=== PATIENT | female | born 1960 | race Caucasian/White ===

== ENCOUNTER → 2016-12-28 | Outpatient (CLI) | payer MEDICARE, OTHER ==
--- NOTE | 2017-01-02 08:11 | MM ---
Reason for exam: screening (asymptomatic). Last mammogram was performed 1 year and 4 months ago. History: Patient is postmenopausal. Family history of breast cancer in maternal aunt at age 57. Physical Findings: A clinical breast exam by your physician is recommended on an annual basis and results should be correlated with mammographic findings. MG 3D Screening Mammo W/Cad Bilateral CC and MLO view(s) were taken. Prior study comparison: August 25, 2015, right breast MG 3d work up w/cad RT. August 19, 2015, bilateral MG screening mammo w CAD. The breast tissue is extremely dense which could obscure a lesion on mammography. No significant changes when compared with prior studies. ASSESSMENT: Benign, BI-RAD 2 RECOMMENDATION: Routine screening mammogram of both breasts in 1 year.
== END | disposition home or self-care (01) ==
LOC: RADMAMWWP 14:29
PROVIDERS: ATTEND Family Medicine
DX: Z12.31 Encounter for screening mammogram for malignant neoplasm of breast (principal); Z80.3 Family history of malignant neoplasm of breast
CPT/HCPCS: 77063; G0202

== ENCOUNTER 2017-07-02 15:00 | Inpatient (IN) | payer MEDICARE, OTHER ==
[2017-07-02 16:22] LABS: Basophils # (A) 0.2 k/uL (0-0.2); Basophils % (A) 1 %; Eosinophils # (A) 0.4 k/uL (0-0.7); Eosinophils % (A) 2 %; HCT 39.4 % (34.0-46.0); HGB 12.8 gm/dL (11.4-16.0); Lymphocytes # (A) 2.2 k/uL (1.0-4.8); Lymphocytes % (A) 9 %; MCH 29.4 pg (25.0-35.0); MCHC 32.4 g/dL (31.0-37.0); Mean Platelet Volume 7.2; Monocytes # (A) 1.5 k/uL (0-1.0); Monocytes % (A) 6 %; Neutrophils # (A) 19.6 k/uL (1.3-7.7); Neutrophils % (A) 81 %; Platelet Count 425 k/uL (150-450); RBC 4.33 m/uL (3.80-5.40); RDW 14.2 % (11.5-15.5); WBC 24.2 k/uL (3.8-10.6)
[2017-07-02 16:26] LABS: Appearance,Urine Clear (Clear); Bacteria,Urine Few /hpf; Bilirubin,Urine Negative (Negative); Blood,Urine Negative (Negative); Color,Urine Yellow; Glucose,Urine (UA) Negative (Negative); Hyaline Casts,Urine 1 /lpf (0-2); Ketones,Urine Negative (Negative); Leukocyte Esterase,Urine Large (Negative); Mucus,Urine Rare /hpf; Nitrite,Urine Negative (Negative); PH, Urine 6.5 (5.0-8.0); Protein,Urine Negative (Negative); RBC,Urine 3 /hpf (0-5); Specific Gravity,Urine 1.008 (1.001-1.035); Squamous Epithelial Cell,Urine 7 /hpf (0-4); Urobilinogen,Urine <2.0 mg/dL (<2.0); WBC,Urine 8 /hpf (0-5)
--- NOTE | 2017-07-02 16:26 | XR ---
EXAMINATION TYPE: XR chest 2V DATE OF EXAM: 07/02/2017 COMPARISON: Prior chest x-ray 04/27/2014 HISTORY: Cough TECHNIQUE: Frontal and lateral views of the chest are obtained. FINDINGS: There is abnormal airspace disease present within the right lower lobe, possibly right mid dle lobe, no pleural effusion or pneumothorax seen. Prominent lung volumes suggest underlying COPD. There is mild spinal curvature. The cardiac silhouette size is stable, heart is small. The osseous structures are intact. IMPRESSION: Correlate for right lower lobe, possible right middle lobe pneumonia, follow-up to [facility]
[2017-07-02 16:32] LABS: Anion Gap 15 mmol/L; Blood Urea Nitrogen 16 mg/dL (7-17); Calcium 10.2 mg/dL (8.4-10.2); Carbon Dioxide 25 mmol/L (22-30); Chloride 104 mmol/L (98-107); Glucose 89 mg/dL (74-99); Potassium 3.9 mmol/L (3.5-5.1); Sodium 144 mmol/L (137-145)
[2017-07-02] MEDS ORDERED: SODIUM CHLORIDE 0.9% 500 ML IV STA (17:06)
[2017-07-02] MEDS ORDERED: RX INFO: IV CONTRAST WAS GIVEN 1 EACH MISC MISCELLANE PRN (17:06)
[2017-07-02] MEDS ORDERED: IPRATROPIUM-ALBUTEROL 3 ML NEB INHALATION STA (17:06)
--- NOTE | 2017-07-02 17:20 | ED ---
General Adult HPI - General Chief complaint: Upper Respiratory Infection Stated complaint: Cough Time Seen by Provider: 07/02/17 16:57 Source: patient, RN notes reviewed Mode of arrival: ambulatory Limitations: no limitations - History of Present Illness Initial comments: 56 yo female presents to the ER with cc of cough and shortness of breath. One week ago she was seen at urgent care and started on azithromycin and steroids for acute bronchitis. She states she continues to have this cough with sputum production. She did have fevers at the beginning of this. She states she feels as if she is getting worse so she thought that she should be seen. She denies any nausea or vomiting. She denies any ear or throat pain. She states she's having some left sided back pain and some chest discomfort with this as well. She states anytime she coughs it seems to get worse. Patient was concerned due to her continued symptoms and her continued cough after finishing the antibiotics so she thought that she should be seen.Patient denies any recent abdominal pain, nausea vomiting, numbness or tingling, dysuria or hematuria, constipation or diarrhea, headaches or visual changes, or any other current symptoms. - Related Data Home Medications Medication Instructions Recorded Confirmed Gabapentin 800 mg PO QID 05/01/14 07/02/17 Omeprazole 20 mg PO DAILY 05/01/14 07/02/17 Topiramate 100 mg PO BID 05/01/14 07/02/17 HYDROcodone/APAP 7.5-325MG [[place] 1 tab PO QID PRN 03/11/16 07/02/17 7.5-325] Baclofen [Lioresal] 20 mg PO HS 07/02/17 07/02/17 Sertraline [Zoloft] 50 mg PO DAILY 07/02/17 07/02/17 Spironolactone 50 mg PO DAILY 07/02/17 07/02/17 buPROPion XL [Wellbutrin Xl] 150 mg PO TID 07/02/17 07/02/17 Allergies Allergy/AdvReac Type Severity Reaction Status Date / Time metronidazole [From Flagyl] Allergy Itching, Verified 07/02/17 17:15 BURNING OF SKIN Review of Systems ROS Statement: Those systems with pertinent positive or pertinent negative responses have been documented in the HPI. ROS Other: All systems not noted in ROS Statement are negative. 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., chronic shoulder pain, back & neck pain History of Any Multi-Drug Resistant Organisms: None Reported Past Surgical History: Hernia Repair, Orthopedic Surgery, Tonsillectomy Additional Past Surgical History / Comment(s): arthroscopic shoulder, vocal cord scraping, dariana fundoplasty, neck surg., recent EGD, colonoscopy Past Anesthesia/Blood Transfusion Reactions: No Reported Reaction Past Psychological History: Anxiety, Depression Smoking Status: Current every day smoker Past Alcohol Use History: None Reported Past Drug Use History: None Reported - Past Family History Mother History Unknown: Yes Family Medical History: Cancer Father Family Medical History: Unable to Obtain General Exam - General Exam Comments Initial Comments: General: The patient is awake and alert, in no distress, and does not appear acutely ill. Eye: Pupils are equal, round and reactive to light, extra-ocular movements are intact; there is normal conjunctiva bilaterally. No signs of icterus. Ears, nose, mouth and throat: There are moist mucous membranes. Neck: The neck is supple, there is no tenderness. Cardiovascular: There is a regular rate and rhythm. No murmur, rub or gallop is appreciated. Respiratory: Lungs are clear to auscultation, respirations are non-labored, breath sounds are equal. No wheezes, stridor, rales, or rhonchi. Gastrointestinal: Soft, non-distended, non-tender abdomen without masses or organomegaly noted. There is no rebound or guarding present. No CVA tenderness. Bowel sounds are unremarkable. Back: There is no tenderness to palpation in the midline. There is no obvious deformity. No rashes noted. Musculoskeletal: Normal ROM, no tenderness, There is no pedal edema. There is no calf tenderness or swelling. Sensation intact. Pulses equal bilaterally 2+. Neurological: CN II-XII intact, There are no obvious motor or sensory deficits. Coordination appears grossly intact. Speech is normal. Skin: Skin is warm and dry and no rashes or lesions are noted. Psychiatric: Cooperative, appropriate mood & affect, normal judgment. Limitations: no limitations Course Vital Signs 07/02/17 07/02/17 07/02/17 15:19 17:22 17:30 Temperature 98.2 F Pulse Rate 110 H 92 95 Respiratory 20 20 Rate Blood Pressure 116/83 118/76 O2 Sat by Pulse 97 100 Oximetry 07/02/17 17:39 Temperature Pulse Rate 92 Respiratory Rate Blood Pressure O2 Sat by Pulse Oximetry Medical Decision Making - Medical Decision Making 56-year-old female presents for cough. At this time patient does appear to have a right lower and middle lobe pneumonia. This time patient has failed outpatient treatment with azithromycin that she finished a few days ago. This time we will admit the patient. We are pending her CAT scan results. Patient is in agreement this plan all questions have been answered. - Lab Data Result diagrams: 07/02/17 16:05 07/02/17 16:05 Lab Results 07/02/17 07/02/17 07/02/17 Range/Units 15:26 16:05 16:05 WBC 24.2 H (3.8-10.6) k/uL RBC 4.33 (3.80-5.40) m/uL Hgb 12.8 (11.4-16.0) gm/dL Hct 39.4 (34.0-46.0) % MCV 91.0 (80.0-100.0) fL MCH 29.4 (25.0-35.0) pg MCHC 32.4 (31.0-37.0) g/dL RDW 14.2 (11.5-15.5) % Plt Count 425 (150-450) k/uL Neutrophils % 81 % Lymphocytes % 9 % Monocytes % 6 % Eosinophils % 2 % Basophils % 1 % Neutrophils # 19.6 H (1.3-7.7) k/uL Lymphocytes # 2.2 (1.0-4.8) k/uL Monocytes # 1.5 H (0-1.0) k/uL Eosinophils # 0.4 (0-0.7) k/uL Basophils # 0.2 (0-0.2) k/uL D-Dimer (<0.60) mg/L FEU Sodium 144 (137-145) mmol/L Potassium 3.9 (3.5-5.1) mmol/L Chloride 104 (98-107) mmol/L Carbon Dioxide 25 (22-30) mmol/L Anion Gap 15 mmol/L BUN 16 (7-17) mg/dL Creatinine 0.70 (0.52-1.04) mg/dL Est GFR (MDRD) Af Amer >60 (>60 ml/min/1.73 sqM) Est GFR (MDRD) Non-Af >60 (>60 ml/min/1.73 sqM) Glucose 89 (74-99) mg/dL Calcium 10.2 (8.4-10.2) mg/dL Urine Color Urine Appearance (Clear) Urine pH (5.0-8.0) Ur Specific [place] (1.001-1.035) Urine Protein (Negative) Urine Glucose (UA) (Negative) Urine Ketones (Negative) Urine Blood (Negative) Urine Nitrite (Negative) Urine Bilirubin (Negative) Urine Urobilinogen (<2.0) mg/dL Ur Leukocyte Esterase (Negative) Urine RBC (0-5) /hpf Urine WBC (0-5) /hpf Ur Squamous Epith Cells (0-4) /hpf Urine Bacteria (None) /hpf Hyaline Casts (0-2) /lpf Urine Mucus (None) /hpf Influenza Type A RNA Not Detected (Not Detectd) Influenza Type B (PCR) Not Detected (Not Detectd) 07/02/17 07/02/17 Range/Units 16:05 16:05 WBC (3.8-10.6) k/uL RBC (3.80-5.40) m/uL Hgb (11.4-16.0) gm/dL Hct (34.0-46.0) % MCV (80.0-100.0) fL MCH (25.0-35.0) pg MCHC (31.0-37.0) g/dL RDW (11.5-15.5) % Plt Count (150-450) k/uL Neutrophils % % Lymphocytes % % Monocytes % % Eosinophils % % Basophils % % Neutrophils # (1.3-7.7) k/uL Lymphocytes # (1.0-4.8) k/uL Monocytes # (0-1.0) k/uL Eosinophils # (0-0.7) k/uL Basophils # (0-0.2) k/uL D-Dimer 0.87 H (<0.60) mg/L FEU Sodium (137-145) mmol/L Potassium (3.5-5.1) mmol/L Chloride (98-107) mmol/L Carbon Dioxide (22-30) mmol/L Anion Gap mmol/L BUN (7-17) mg/dL Creatinine (0.52-1.04) mg/dL Est GFR (MDRD) Af Amer (>60 ml/min/1.73 sqM) Est GFR (MDRD) Non-Af (>60 ml/min/1.73 sqM) Glucose (74-99) mg/dL Calcium (8.4-10.2) mg/dL Urine Color Yellow Urine Appearance Clear (Clear) Urine pH 6.5 (5.0-8.0) Ur Specific [place] 1.008 (1.001-1.035) Urine Protein Negative (Negative) Urine Glucose (UA) Negative (Negative) Urine Ketones Negative (Negative) Urine Blood Negative (Negative) Urine Nitrite Negative (Negative) Urine Bilirubin Negative (Negative) Urine Urobilinogen <2.0 (<2.0) mg/dL Ur Leukocyte Esterase Large H (Negative) Urine RBC 3 (0-5) /hpf Urine WBC 8 H (0-5) /hpf Ur Squamous Epith Cells 7 H (0-4) /hpf Urine Bacteria Few H (None) /hpf Hyaline Casts 1 (0-2) /lpf Urine Mucus Rare H (None) /hpf Influenza Type A RNA (Not Detectd) Influenza Type B (PCR) (Not Detectd) - Radiology Data Radiology results: report reviewed, image reviewed Disposition Clinical Impression: Failure of outpatient treatment, Right lower lobe pneumonia, Right middle lobe pneumonia Disposition: ADMITTED IP TO THIS [facility] Condition: Stable Referrals: Katja Jefferson DO [Primary Care Provider] - 1-2 days Decision Date: 07/02/17 Decision Time: 19:58
[2017-07-02] MEDS ORDERED: KETOROLAC 30 MG/ML 1 ML VIAL IVP STA (18:38)
[2017-07-02] MEDS ORDERED: LEVOFLOXACIN 750MG-D5W PMX 750 MG in DEXTROSE/WATER 1 150ML.BAG IVPB STA (19:59)
[2017-07-02] MEDS ORDERED: IPRATROPIUM-ALBUTEROL 3 ML NEB INHALATION PRN (19:59)
[2017-07-02] MEDS ORDERED: PNEUMONIA PROTOCOL UTILIZED 1 EACH MISC PO PRN (19:59)
--- NOTE | 2017-07-02 20:16 | CT ---
CT CHEST FOR PULMONARY EMBOLISM. EXAMINATION TYPE: CT angio chest DATE OF EXAM: 07/02/2017 INDICATION: Patient complains of unproductive cough CT DLP: 301 mGycm, Automated exposure control for dose reduction was used. CONTRAST: Patient injected with 100 mL of Omnipaque 350. COMPARISON: NONE TECHNIQUE: CT of the chest is performed on a spiral scan at 2 mm thick sections. Study is performed with intravenous contrast timed for evaluation for pulmonary embolism. This will limit additional po rtions of the evaluation. 3-D MIP images reconstructed by the technologist are reviewed on the compu ter in the coronal and sagittal planes. FINDINGS: No persistent filling defects are evident to suggest an acute pulmonary embolism. No mediastinal or hilar adenopathy enlarged by CT criteria is evident. The ascending aorta diameter at the level of the main pulmonary artery is 2.9 cm. The main pulmonary artery diameter at the bifur cation is 2.4 cm. Patchy infiltrates within the posterior lung bases bilaterally. This may be greater along the lateral right lung. There is a consolidation within the lingula. Some mild soft tissue density may surround the infrahilar region on the right. Limited CT section through the upper abdomen are unremarkable. IMPRESSIONS: 1. No acute pulmonary embolism. 2. Nonspecific infiltrate present at the bilateral lung bases with some possible soft tissue density in the right infrahilar region. Follow-up to clearing is recommended. Differential diagnosis could in clude pneumonia.
[2017-07-02] MEDS: SODIUM CHLORIDE 0.9% 1,000 ML IV SCH (20:21)
[2017-07-02 22:14] VITALS: BMI 16.9
[2017-07-02] MEDS: BACLOFEN 10 MG TAB PO SCH (22:30)
[2017-07-02] MEDS: buPROPion XL 150 MG TAB.ER.24H PO SCH (22:30)
[2017-07-02] MEDS: GABAPENTIN 400 MG CAP PO SCH (22:30)
[2017-07-02] MEDS: TOPIRAMATE 100 MG TAB PO SCH (22:31)
[2017-07-02] MEDS: HYDROcodone/APAP 7.5-325MG 1 EACH TAB PO PRN (22:32)
[2017-07-03] MEDS ORDERED: MORPHINE SULFATE 4 MG/ML SYRINGE IVP PRN ×2 (04:04→04:14)
[2017-07-03] MEDS ORDERED: guaiFENesin-DM 100-10MG/5ML 10 ML CUP PO PRN (04:04)
[2017-07-03] MEDS: buPROPion XL 150 MG TAB.ER.24H PO SCH ×3 (08:13→21:37)
[2017-07-03] MEDS: PANTOPRAZOLE 40 MG TABLET PO SCH (08:13)
[2017-07-03] MEDS: SERTRALINE 50 MG TAB PO SCH (08:13)
[2017-07-03] MEDS: SPIRONOLACTONE 25 MG TAB PO SCH (08:13)
[2017-07-03] MEDS: GABAPENTIN 400 MG CAP PO SCH ×4 (08:13→21:37)
[2017-07-03] MEDS: HYDROcodone/APAP 7.5-325MG 1 EACH TAB PO PRN ×3 (08:13→23:36)
[2017-07-03] MEDS: TOPIRAMATE 100 MG TAB PO SCH ×2 (08:14→21:37)
[2017-07-03] MEDS: LEVOFLOXACIN 750 MG TAB PO SCH (08:14)
[2017-07-03] MEDS: SODIUM CHLORIDE 0.9% 1,000 ML IV SCH ×2 (08:15→10:46)
[2017-07-03] MEDS ORDERED: IPRATROPIUM-ALBUTEROL 3 ML NEB INHALATION PRN (08:42)
[2017-07-03] MEDS: IPRATROPIUM-ALBUTEROL 3 ML NEB INHALATION SCH ×3 (11:52→19:03)
--- NOTE | 2017-07-03 12:10 | P.CNPUL ---
History of Present Illness Consult date: 07/03/17 Reason for consult: pneumonia History of present illness: A pleasant 66-year-old female patient is presenting to the hospital because of worsening shortness of breath. The patient is a chronic smoker. The patient came into the hospital for increased cough, chest congestion, chest tightness that was progressively getting worse over the past week or so. The patient was seen in urgent care and she was diagnosed having a rest or checked infection/ bronchitis and the patient was given a course of Z-Fred and steroids. Nevertheless she failed to improve. She did have some fever earlier approximately a week ago and currently she is afebrile. No nausea. No vomiting. No abdominal pain. She has diminished appetite. She is having pain across her left posterior back area which is somewhat pleuritic in nature. No hemoptysis for now. She came into the hospital and she was slightly tachycardic. She was not tachypneic. Her temperature was 98.2. A chest x-ray was done that was nonspecific and subsequently a CAT scan of the chest was done that showed lower lobe nodular bilateral pulmonary infiltrates along with some consolidation over the lingular segment along the left cardiac border. This is consistent with bilateral pneumonia. No reported aspiration per no sick contacts. Influenza screen was negative. No travel history. The patient rides the bus and she could have been exposed to other people with respiratory difficulties and problems. She is currently on Levaquin. She is also started on DuoNeb nebulized treatment [id number]. Review of Systems Constitutional: Reports fatigue, Reports weakness Eyes: denies blurred vision, denies bulging eye, denies decreased vision Ears: deny: decreased hearing, ear discharge, earache, tinnitus Ears, nose, mouth and throat: Denies headache, Denies sore throat Cardiovascular: Reports dyspnea on exertion Respiratory: Reports cough, Reports dyspnea, Reports wheezing Gastrointestinal: Reports loss of appetite Genitourinary: Denies dysuria, Denies hematuria Musculoskeletal: Denies myalgias Musculoskeletal: absent: ankle pain, ankle stiffness, ankle swelling Integumentary: Denies pruritus, Denies rash Neurological: Denies numbness, Denies weakness Psychiatric: Denies anxiety, Denies depression Endocrine: Denies fatigue, Denies weight change Hematologic/Lymphatic: Reports as per HPI Allergic/Immunologic: Reports as per HPI Past Medical History Past Medical History: GERD/Reflux, Hypertension Additional Past Medical History / Comment(s): COPD, hypertension, leukoplakia of the vocal cords, chronic shoulder back and neck pain, acid reflux, depression , smoker History of Any Multi-Drug Resistant Organisms: None Reported Past Surgical History: Hernia Repair, Orthopedic Surgery, Tonsillectomy Additional Past Surgical History / Comment(s): arthroscopic shoulder, vocal cord scraping, dariana fundoplasty, neck surg., recent EGD, colonoscopy, cholesycystectomy Past Anesthesia/Blood Transfusion Reactions: No Reported Reaction Past Psychological History: Anxiety, Depression Additional Psychological History / Comment(s): hx suicidal ideaation Smoking Status: Current every day smoker Past Alcohol Use History: None Reported Additional Past Alcohol Use History / Comment(s): quit smoking 2014, smoked < ppd since age of 20. started smoking again recently, says 1 pack will last her 3days. Past Drug Use History: None Reported - Past Family History Mother History Unknown: Yes Family Medical History: Cancer Father Family Medical History: Unable to Obtain Medications and Allergies Home Medications Medication Instructions Recorded Confirmed Type Gabapentin 800 mg PO QID 05/01/14 07/02/17 History Omeprazole 20 mg PO DAILY 05/01/14 07/02/17 History Topiramate 100 mg PO BID 05/01/14 07/02/17 History HYDROcodone/APAP 7.5-325MG [[place] 1 tab PO QID PRN 03/11/16 07/02/17 History 7.5-325] Baclofen [Lioresal] 20 mg PO HS 07/02/17 07/02/17 History Sertraline [Zoloft] 50 mg PO DAILY 07/02/17 07/02/17 History Spironolactone 50 mg PO DAILY 07/02/17 07/02/17 History buPROPion XL [Wellbutrin Xl] 150 mg PO TID 07/02/17 07/02/17 History Allergies Allergy/AdvReac Type Severity Reaction Status Date / Time metronidazole [From Flagyl] Allergy Itching, Verified 07/02/17 17:15 BURNING OF SKIN Physical Exam Vitals: Vital Signs Temp Pulse Pulse Resp BP BP Pulse Ox 07/03/17 11:52 84 07/03/17 07:00 98.3 F 82 18 101/57 97 07/02/17 21:54 97.7 F 104 H 18 105/69 99 07/02/17 21:42 98.4 F 92 18 113/84 97 07/02/17 20:16 98.6 F 94 18 106/90 96 07/02/17 17:39 92 07/02/17 17:30 95 07/02/17 17:22 92 20 118/76 100 07/02/17 15:19 98.2 F 110 H 20 116/83 97 Intake and Output 07/02/17 07/03/17 07/03/17 22:59 06:59 14:59 Other: # Voids 1 Weight 46.266 kg 46.266 kg Patient Weight 07/04/17 06:59 Weight 46.266 kg This is a thin and frail female patient who looks older than her stated age. She is not using accessory muscles of breathing. She is laying down comfortably in bed. No altered mentation and she has been alert and awake 3 and there is no focal neurological deficit or any cranial nerve deficit at this point.Head exam was generally normal. There was no scleral icterus or corneal arcus. Mucous membranes were moist.Neck was supple and without jugular venous distension, thyromegaly, or carotid bruits. Carotids were easily palpable bilaterally. There was no adenopathy. Lung sounds are diminished in lung bases along with some scattered rhonchi and scattered expiratory wheezes heard throughout the lung fuentes bilaterally.Cardiac exam revealed the PMI to be normally situated and sized. The rhythm was regular and no extrasystoles were noted during several minutes of auscultation. The first and second heart sounds were normal and physiologic splitting of the second heart sound was noted. There were no murmurs, rubs, clicks, or gallops.Abdominal exam revealed normal bowel sounds. The abdomen was soft, non-tender, and without masses, organomegaly , or appreciable enlargement of the abdominal aorta.Examination of the extremities revealed easily palpable radial, femoral and pedal pulses. There was no cyanosis, clubbing or edema.Examination of the skin revealed no evidence of significant rashes, suspicious appearing nevi or other concerning lesions. Results - Laboratory Findings CBC and BMP: 07/02/17 16:05 07/02/17 16:05 PT/INR, D-dimer D-Dimer 0.87 mg/L FEU (<0.60) H 07/02/17 16:05 Abnormal lab findings: Abnormal Labs 07/02/17 07/02/17 07/02/17 16:05 16:05 16:05 WBC 24.2 H Neutrophils # 19.6 H Monocytes # 1.5 H D-Dimer 0.87 H Ur Leukocyte Esterase Large H Urine WBC 8 H Ur Squamous Epith Cells 7 H Urine Bacteria Few H Urine Mucus Rare H - Diagnostic Findings Chest x-ray: image reviewed CT scan - chest: image reviewed Assessment and Plan Plan: Assessment 1 bilateral pneumonia. The pneumonia is affecting mainly the lower lobes and the patient has no other better pulmonary infiltrates in addition to a consolidation in the lingular segment of the left upper lobe. As such the patient has multilobar pneumonia. In addition the patient has leukocytosis in addition to increased cough and wheezing which is typical of an acute COPD exacerbation 2 COPD with acute exacerbation secondary to bilateral pneumonia 3 leukocytosis secondary to above 4 shortness of breath secondary to above 5 anxiety/depression 6 acid reflux 7 chronic pain 8 hypertension Plan Based on the severity of pneumonia, we'll broaden the antibiotic coverage. We' ll obtain sputum Gram stain and culture. We'll obtain blood culture. We'll put the patient a combination of Zosyn and Levaquin. The COPD exacerbation will be treated with DuoNeb neb treatments around the clock and IV Solu Medrol. Will monitor the x-ray findings. Smoking cessation counseling was done. Ninfa for cough. Continue her outpatient medication including her painkillers. We'll continue to follow.
[2017-07-03] MEDS: PIPERACILLIN-TAZOBACTAM 3.375 GM in DEXTROSE/WATER 1 50ML.BAG IVPB SCH ×2 (12:17→21:35)
[2017-07-03] MEDS: methylPREDNISolone SOD SUCCI 125 MG/2 ML VIAL IV SCH ×3 (12:17→23:34)
--- NOTE | 2017-07-03 13:54 | XR ---
EXAMINATION TYPE: XR chest 2V DATE OF EXAM: 07/03/2017 COMPARISON: 07/02/2017 HISTORY: 56 year-old female history of pneumonia TECHNIQUE: Frontal and lateral views FINDINGS: The cardiomediastinal silhouette, aorta, and pulmonary vasculature are within normal limits. Hyperinf lation. Mild peribronchial cuffing. Findings compatible with COPD. On the lateral view, there is new patchy posterior basilar density. IMPRESSION: COPD with new posterior basilar atelectasis versus developing pneumonia.
--- NOTE | 2017-07-03 14:45 | P.HPIM ---
History of Present Illness H&P Date: 07/03/17 Chief Complaint: Cough This is a 56-year-old female, patient of Dr. Jefferson. 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 Patient presents to the emergency room with complaints of cough and shortness of breath that did not improve with outpatient treatment. Patient had been at the clinic and was treated for a bronchitis at that time was given a course of Z-Fred and steroids. Patient reports she's having symptoms for about 2 weeks did not approve with treatment. Patient came into the emergency room for further evaluation and treatment. She had a white count 24.2 elevated d-dimer of 0.87 influenza screen was negative. She underwent a CTA of the chest which was negative for PE. Did reveal a nonspecific infiltrate present at the bilateral lung bases with some possible soft tissue density in the right infrahilar region. Pulmonary service consulted. Patient started on IV antibiotics currently in the form of Levaquin and IV Zosyn. Also started on IV Solu-Medrol and bronchodilators for COPD exacerbation. Review of Systems Please refer to HPI otherwise unremarkable Past Medical History Past Medical History: GERD/Reflux, Hypertension Additional Past Medical History / Comment(s): COPD, hypertension, leukoplakia of the vocal cords, chronic shoulder back and neck pain, acid reflux, depression , smoker History of Any Multi-Drug Resistant Organisms: None Reported Past Surgical History: Hernia Repair, Orthopedic Surgery, Tonsillectomy Additional Past Surgical History / Comment(s): arthroscopic shoulder, vocal cord scraping, dariana fundoplasty, neck surg., recent EGD, colonoscopy, cholesycystectomy Past Anesthesia/Blood Transfusion Reactions: No Reported Reaction Past Psychological History: Anxiety, Depression Additional Psychological History / Comment(s): hx suicidal ideaation Smoking Status: Current every day smoker Past Alcohol Use History: None Reported Additional Past Alcohol Use History / Comment(s): quit smoking 2014, smoked < ppd since age of 20. started smoking again recently, says 1 pack will last her 3days. Past Drug Use History: None Reported - Past Family History Mother History Unknown: Yes Family Medical History: Cancer Father Family Medical History: Unable to Obtain Medications and Allergies Home Medications Medication Instructions Recorded Confirmed Type Gabapentin 800 mg PO QID 05/01/14 07/02/17 History Omeprazole 20 mg PO DAILY 05/01/14 07/02/17 History Topiramate 100 mg PO BID 05/01/14 07/02/17 History HYDROcodone/APAP 7.5-325MG [[place] 1 tab PO QID PRN 03/11/16 07/02/17 History 7.5-325] Baclofen [Lioresal] 20 mg PO HS 07/02/17 07/02/17 History Sertraline [Zoloft] 50 mg PO DAILY 07/02/17 07/02/17 History Spironolactone 50 mg PO DAILY 07/02/17 07/02/17 History buPROPion XL [Wellbutrin Xl] 150 mg PO TID 07/02/17 07/02/17 History Allergies Allergy/AdvReac Type Severity Reaction Status Date / Time metronidazole [From Flagyl] Allergy Itching, Verified 07/02/17 17:15 BURNING OF SKIN Physical Exam Vitals: Vital Signs Temp Pulse Pulse Resp BP BP Pulse Ox 07/03/17 12:06 88 07/03/17 11:52 84 07/03/17 07:00 98.3 F 82 18 101/57 97 07/02/17 21:54 97.7 F 104 H 18 105/69 99 07/02/17 21:42 98.4 F 92 18 113/84 97 07/02/17 20:16 98.6 F 94 18 106/90 96 07/02/17 17:39 92 07/02/17 17:30 95 07/02/17 17:22 92 20 118/76 100 07/02/17 15:19 98.2 F 110 H 20 116/83 97 Intake and Output 07/02/17 07/03/17 07/03/17 22:59 06:59 14:59 Intake Total 850 Balance 850 Intake: Intake, IV Titration 850 Amount Piperacillin-Tazobactam 3 50 .375 gm In Dextrose/Water 1 50ml.bag @ 12.5 mls/hr IVPB Q8H [facility] Rx#: [id number] Sodium Chloride 0.9% 1, 800 000 ml @ 100 mls/hr IV . Q10H [facility] Rx#:[id number] Other: # Voids 1 2 Weight 46.266 kg 46.266 kg Patient Weight 07/04/17 06:59 Weight 46.266 kg Head normocephalic Neck supple Lungs wheezing bilaterally with coarse breath sounds Heart regular rate and rhythm S1-S2, no rub or gallop Abdomen is soft nontender nondistended positive bowel sounds no hepatosplenomegaly Extremities no edema Neuro alert and orientated to 3 Results CBC & Chem 7: 07/02/17 16:05 07/02/17 16:05 Labs: Abnormal Lab Results - Last 24 Hours (Table) 07/02/17 07/02/17 07/02/17 Range/Units 16:05 16:05 16:05 WBC 24.2 H (3.8-10.6) k/uL Neutrophils # 19.6 H (1.3-7.7) k/uL Monocytes # 1.5 H (0-1.0) k/uL D-Dimer 0.87 H (<0.60) mg/L FEU Ur Leukocyte Esterase Large H (Negative) Urine WBC 8 H (0-5) /hpf Ur Squamous Epith Cells 7 H (0-4) /hpf Urine Bacteria Few H (None) /hpf Urine Mucus Rare H (None) /hpf Thrombosis Risk Factor Assmnt - Choose All That Apply Any of the Below Risk Factors Present?: Yes Each Factor Represents 1 point: Age 41-60 years Other Risk Factors: No Other congenital or acquired thrombophilia - If yes, enter type in comment: No Thrombosis Risk Factor Assessment Total Risk Factor Score: 1 Thrombosis Risk Factor Assessment Level: Low Risk Assessment and Plan Assessment: 1. Bilateral pneumonia: Check sputum culture. Patient started on Levaquin and pulmonary service added IV Zosyn. 2. Acute COPD exacerbation secondary to the bilateral pneumonia. Pulmonary service following 3. Leukocytosis present on admission likely related to patient's pneumonia and she had recently been on prednisone outpatient 4. Essential hypertension 5. Nicotine dependence: Discussed smoking cessation for greater than 3 minutes. Add nicotine patch 6. Elevated d-dimer on admission. CTA negative for PE 7. History of Leukoplakia of the vocal cords and tonsils treated by Dr. Dcikens GI prophylaxis Protonix and DVT prophylaxis Lovenox Time with Patient: Greater than 30 (Greater than 50% of the total time spent in counseling and coordination of care.I performed an examination of the patient and discussed their management with the physician Belly Packer. I have reviewed the Physician Belly Packer's notes and agree with the documented findings and plan of care)
[2017-07-03] MEDS: ENOXAPARIN 40 MG/0.4 ML SYRINGE SQ SCH (16:19)
[2017-07-03] MEDS: guaiFENesin 600 MG TABLET.ER PO SCH ×2 (16:19→21:36)
[2017-07-03] MEDS: NICOTINE 7MG/24HR PATCH TRANSDERM SCH (16:19)
[2017-07-03 17:17] LABS: Glucose,Whole Blood 148 mg/dL (75-99)
[2017-07-03] MEDS: INSULIN ASPART 100 UNIT/ML 1 ML 10 ML VIAL SQ SCH ×2 (17:37→21:53)
[2017-07-03 20:20] LABS: Glucose,Whole Blood 142 mg/dL (75-99)
[2017-07-03] MEDS: CALCIUM POLYCARBOPHIL 625 MG TAB PO SCH (21:36)
[2017-07-03] MEDS: BACLOFEN 10 MG TAB PO SCH (21:36)
[2017-07-03] MEDS ORDERED: MELATONIN 5 MG TABLET PO PRN (23:08)
[2017-07-03] MEDS: traZODone HCL 50 MG TAB PO PRN (23:34)
[2017-07-04] MEDS: PIPERACILLIN-TAZOBACTAM 3.375 GM in DEXTROSE/WATER 1 50ML.BAG IVPB SCH ×3 (04:47→21:14)
[2017-07-04] MEDS: SODIUM CHLORIDE 0.9% 1,000 ML IV SCH ×3 (04:47→17:07)
[2017-07-04] MEDS: methylPREDNISolone SOD SUCCI 125 MG/2 ML VIAL IV SCH ×3 (05:57→17:11)
[2017-07-04] MEDS: IPRATROPIUM-ALBUTEROL 3 ML NEB INHALATION SCH ×4 (07:37→20:31)
[2017-07-04 07:38] LABS: Glucose,Whole Blood 166 mg/dL (75-99)
[2017-07-04 08:58] LABS: Basophils # (A) 0.1 k/uL (0-0.2); Basophils % (A) 0 %; Eosinophils % (A) 0 %; HCT 35.4 % (34.0-46.0); HGB 11.1 gm/dL (11.4-16.0); Hypochromasia Slight; Lymphocytes # (A) 1.2 k/uL (1.0-4.8); Lymphocytes % (A) 7 %; MCH 29.6 pg (25.0-35.0); MCHC 31.4 g/dL (31.0-37.0); Mean Platelet Volume 7.3; Monocytes # (A) 0.5 k/uL (0-1.0); Monocytes % (A) 3 %; Neutrophils # (A) 16.2 k/uL (1.3-7.7); Neutrophils % (A) 90 %; Platelet Count 391 k/uL (150-450); RBC 3.77 m/uL (3.80-5.40); RDW 14.2 % (11.5-15.5)
[2017-07-04] MEDS: INSULIN ASPART 100 UNIT/ML 1 ML 10 ML VIAL SQ SCH ×4 (09:01→21:15)
[2017-07-04] MEDS: ENOXAPARIN 40 MG/0.4 ML SYRINGE SQ SCH (09:02)
[2017-07-04] MEDS: SERTRALINE 50 MG TAB PO SCH (09:02)
[2017-07-04] MEDS: NICOTINE 7MG/24HR PATCH TRANSDERM SCH (09:02)
[2017-07-04] MEDS: PANTOPRAZOLE 40 MG TABLET PO SCH (09:02)
[2017-07-04] MEDS: LEVOFLOXACIN 750 MG TAB PO SCH (09:02)
[2017-07-04] MEDS: guaiFENesin 600 MG TABLET.ER PO SCH ×2 (09:02→21:14)
[2017-07-04] MEDS: GABAPENTIN 400 MG CAP PO SCH ×4 (09:02→21:14)
[2017-07-04] MEDS: SPIRONOLACTONE 25 MG TAB PO SCH (09:02)
[2017-07-04] MEDS: buPROPion XL 150 MG TAB.ER.24H PO SCH ×3 (09:02→21:14)
[2017-07-04] MEDS: TOPIRAMATE 100 MG TAB PO SCH ×2 (09:02→21:15)
[2017-07-04 09:17] LABS: ALT 33 U/L (9-52); AST 24 U/L (14-36); Albumin 3.4 g/dL (3.5-5.0); Alkaline Phosphatase 94 U/L (38-126); Anion Gap 14 mmol/L; Blood Urea Nitrogen 12 mg/dL (7-17); Calcium 9.7 mg/dL (8.4-10.2); Carbon Dioxide 21 mmol/L (22-30); Chloride 111 mmol/L (98-107); Glucose 181 mg/dL (74-99); Potassium 3.6 mmol/L (3.5-5.1); Sodium 146 mmol/L (137-145); Total Bilirubin 0.3 mg/dL (0.2-1.3); Total Protein 6.4 g/dL (6.3-8.2)
[2017-07-04] MEDS: HYDROcodone/APAP 7.5-325MG 1 EACH TAB PO PRN ×2 (09:34→17:11)
--- NOTE | 2017-07-04 11:01 | P.PN ---
Subjective Progress Note Date: 07/04/17 This is a 56-year-old female, patient of Dr. Jefferson. 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 Patient presents to the emergency room with complaints of cough and shortness of breath that did not improve with outpatient treatment. Patient had been at the clinic and was treated for a bronchitis at that time was given a course of Z-Fred and steroids. Patient reports she's having symptoms for about 2 weeks did not approve with treatment. Patient came into the emergency room for further evaluation and treatment. She had a white count 24.2 elevated d-dimer of 0.87 influenza screen was negative. She underwent a CTA of the chest which was negative for PE. Did reveal a nonspecific infiltrate present at the bilateral lung bases with some possible soft tissue density in the right infrahilar region. Pulmonary service consulted. Patient started on IV antibiotics currently in the form of Levaquin and IV Zosyn. Also started on IV Solu-Medrol and bronchodilators for COPD exacerbation. On 07/04/2017 patient is alert and oriented 3 still complaining of cough and complaining of shortness of breath with activity she is complaining of stiffness in her lower extremities after laying in bed for several hours otherwise she denies any complaints there is no fever or chills no headache no dizziness no chest pain no nausea or vomiting no abdominal pain no diarrhea and no urinary symptoms. Objective - Vital Signs Vital signs: Vital Signs Temp 97.5 F L 07/04/17 07:00 Pulse 80 07/04/17 07:53 Resp 16 07/04/17 07:00 BP 114/76 07/04/17 07:00 Pulse Ox 98 07/04/17 07:00 Intake & Output 07/03/17 07/04/17 07/04/17 18:59 06:59 18:59 Intake Total 850 900 Balance 850 900 Weight 46.266 kg Intake: IV 900 Sodium Chloride 0.9% 1, 900 000 ml @ 100 mls/hr IV . Q10H [facility] Rx#:[id number] Intake, IV Titration 850 Amount Piperacillin-Tazobactam 3 50 .375 gm In Dextrose/Water 1 50ml.bag @ 12.5 mls/hr IVPB Q8H [facility] Rx#: [id number] Sodium Chloride 0.9% 1, 800 000 ml @ 100 mls/hr IV . Q10H [facility] Rx#:[id number] Other: Voiding Method Toilet # Voids 2 1 - Exam In general patient is alert and oriented 3 in no apparent distress HEENT head normocephalic and atraumatic Neck is supple no JVD no goiter no lymphadenopathy Chest exam reveals a crackles in both lung bases no wheezing Cardiac exam reveals regular heart sounds no gallops no murmurs Abdomen is soft nontender no organomegaly Extremity exam reveals no edema no cyanosis or clubbing - Labs CBC & Chem 7: 07/04/17 08:34 07/04/17 08:34 Labs: Abnormal Lab Results - Last 24 Hours (Table) 07/03/17 07/03/17 07/04/17 Range/Units 17:14 19:50 07:37 WBC (3.8-10.6) k/uL RBC (3.80-5.40) m/uL Hgb (11.4-16.0) gm/dL Neutrophils # (1.3-7.7) k/uL Sodium (137-145) mmol/L Chloride (98-107) mmol/L Carbon Dioxide (22-30) mmol/L Glucose (74-99) mg/dL POC Glucose (mg/dL) 148 H 142 H 166 H (75-99) mg/dL Albumin (3.5-5.0) g/dL 07/04/17 07/04/17 Range/Units 08:34 08:34 WBC 18.0 H (3.8-10.6) k/uL RBC 3.77 L (3.80-5.40) m/uL Hgb 11.1 L (11.4-16.0) gm/dL Neutrophils # 16.2 H (1.3-7.7) k/uL Sodium 146 H (137-145) mmol/L Chloride 111 H (98-107) mmol/L Carbon Dioxide 21 L (22-30) mmol/L Glucose 181 H (74-99) mg/dL POC Glucose (mg/dL) (75-99) mg/dL Albumin 3.4 L (3.5-5.0) g/dL Microbiology - Last 24 Hours (Table) 07/02/17 20:20 Blood Culture - Preliminary Blood No Growth after 24 hours Assessment and Plan Plan: 1. Bilateral pneumonia: Check sputum culture. Patient started on Levaquin and pulmonary service added IV Zosyn. 2. Acute COPD exacerbation secondary to the bilateral pneumonia. Pulmonary service following 3. Leukocytosis present on admission likely related to patient's pneumonia and she had recently been on prednisone outpatient 4. Essential hypertension 5. Nicotine dependence: Discussed smoking cessation for greater than 3 minutes. Add nicotine patch 6. Elevated d-dimer on admission. CTA negative for PE 7. History of Leukoplakia of the vocal cords and tonsils treated by Dr. Dickens
[2017-07-04 11:11] LABS: Glucose,Whole Blood 113 mg/dL (75-99)
--- NOTE | 2017-07-04 16:04 | P.PN ---
Subjective Progress Note Date: 07/04/17 Principal diagnosis: Acute bilateral pneumonia, COPD exacerbation A pleasant 66-year-old female patient is presenting to the hospital because of worsening shortness of breath. The patient is a chronic smoker. The patient came into the hospital for increased cough, chest congestion, chest tightness that was progressively getting worse over the past week or so. The patient was seen in urgent care and she was diagnosed having a rest or checked infection/ bronchitis and the patient was given a course of Z-Rfed and steroids. Nevertheless she failed to improve. She did have some fever earlier approximately a week ago and currently she is afebrile. No nausea. No vomiting. No abdominal pain. She has diminished appetite. She is having pain across her left posterior back area which is somewhat pleuritic in nature. No hemoptysis for now. She came into the hospital and she was slightly tachycardic. She was not tachypneic. Her temperature was 98.2. A chest x-ray was done that was nonspecific and subsequently a CAT scan of the chest was done that showed lower lobe nodular bilateral pulmonary infiltrates along with some consolidation over the lingular segment along the left cardiac border. This is consistent with bilateral pneumonia. No reported aspiration per no sick contacts. Influenza screen was negative. No travel history. The patient rides the bus and she could have been exposed to other people with respiratory difficulties and problems. She is currently on Levaquin. She is also started on DuoNeb nebulized treatment [id number]. On 07/04/2017 patient seen in follow-up. Resting in bed, denies any acute distress. Still becomes dyspneic, lightheaded, tachycardic with ambulation. Reports her breathing is slightly better today. Lung sounds good air entry bilaterally, few scattered wheezes, bronchospastic cough improving. Not able to bring up much sputum, but did produce a sputum specimen for culture. Blood culture is negative at the 24-hour rima. Afebrile, vital signs are stable. Patient is on room air with O2 sat at 98%. Today's blood work shows improvement in the leukocytosis, WBC is down to 18.0 from 24.2, serum sodium is slightly elevated at 146, normal renal profile. Patient's influenza screen was negative. We'll continue with current plan of treatment. Objective - Vital Signs Vital signs: Vital Signs Temp 97.5 F L 07/04/17 07:00 Pulse 100 07/04/17 12:23 Resp 16 07/04/17 07:00 BP 114/76 07/04/17 07:00 Pulse Ox 98 07/04/17 07:00 Intake & Output 07/03/17 07/04/17 07/04/17 18:59 06:59 18:59 Intake Total 850 900 Balance 850 900 Weight 46.266 kg Intake: IV 900 Sodium Chloride 0.9% 1, 900 000 ml @ 100 mls/hr IV . Q10H [facility] Rx#:[id number] Intake, IV Titration 850 Amount Piperacillin-Tazobactam 3 50 .375 gm In Dextrose/Water 1 50ml.bag @ 12.5 mls/hr IVPB Q8H [facility] Rx#: [id number] Sodium Chloride 0.9% 1, 800 000 ml @ 100 mls/hr IV . Q10H [facility] Rx#:[id number] Other: Voiding Method Toilet Toilet Diaper # Voids 2 1 - Exam GENERAL EXAM: Alert, pleasant, thin 56-year-old white female, resting in bed, comfortable in no apparent distress. HEAD: Normocephalic/atraumatic. EYES: Normal reaction of pupils, equal size. Conjunctiva pink, sclera white. NOSE: Clear with pink turbinates. THROAT: No erythema or exudates. NECK: No masses, no JVD, no thyroid enlargement, no adenopathy. CHEST: No chest wall deformity. Symmetrical expansion. LUNGS: Equal air entry with no crackles, a few end expiratory wheezing, bronchospastic cough which has noted to be improving from previous exams. CVS: Regular rate and rhythm, normal S1 and S2, no gallops, no murmurs, no rubs ABDOMEN: Soft, nontender. No hepatosplenomegaly, normal bowel sounds, no guarding or rigidity. EXTREMITIES: No clubbing, no edema, no cyanosis, 2+ pulses and upper and lower extremities. MUSCULOSKELETAL: Muscle strength and tone normal. SPINE: No scoliosis or deformity SKIN: No rashes CENTRAL NERVOUS SYSTEM: Alert and oriented -3. No focal deficits, tone is normal in all 4 extremities. PSYCHIATRIC: Alert and oriented -3. Appropriate affect. Intact judgment and insight. - Labs CBC & Chem 7: 07/04/17 08:34 03/07/18 08:34 Labs: Abnormal Lab Results - Last 24 Hours (Table) 07/03/17 07/03/17 07/04/17 Range/Units 17:14 19:50 07:37 WBC (3.8-10.6) k/uL RBC (3.80-5.40) m/uL Hgb (11.4-16.0) gm/dL Neutrophils # (1.3-7.7) k/uL Sodium (137-145) mmol/L Chloride (98-107) mmol/L Carbon Dioxide (22-30) mmol/L Glucose (74-99) mg/dL POC Glucose (mg/dL) 148 H 142 H 166 H (75-99) mg/dL Albumin (3.5-5.0) g/dL 07/04/17 07/04/17 07/04/17 Range/Units 08:34 08:34 11:10 WBC 18.0 H (3.8-10.6) k/uL RBC 3.77 L (3.80-5.40) m/uL Hgb 11.1 L (11.4-16.0) gm/dL Neutrophils # 16.2 H (1.3-7.7) k/uL Sodium 146 H (137-145) mmol/L Chloride 111 H (98-107) mmol/L Carbon Dioxide 21 L (22-30) mmol/L Glucose 181 H (74-99) mg/dL POC Glucose (mg/dL) 113 H (75-99) mg/dL Albumin 3.4 L (3.5-5.0) g/dL Microbiology - Last 24 Hours (Table) 07/02/17 20:20 Blood Culture - Preliminary Blood No Growth after 24 hours Assessment and Plan Plan: Assessment: 1 bilateral pneumonia. The pneumonia is affecting mainly the lower lobes and the patient has no other better pulmonary infiltrates in addition to a consolidation in the lingular segment of the left upper lobe. As such the patient has multilobar pneumonia. In addition the patient has leukocytosis in addition to increased cough and wheezing which is typical of an acute COPD exacerbation 2 COPD with acute exacerbation secondary to bilateral pneumonia 3 leukocytosis secondary to above, improving 4 shortness of breath secondary to above 5 anxiety/depression 6 acid reflux 7 chronic pain 8 hypertension Plan Continue current plan of care, continue current antibiotic coverage, sputum cultures pending. We will patient is improving, but remains dyspneic, and tachycardic with activity. Lung sounds are improving, and so is her cough and chest congestion. Vitals as remains stable, continue with nebulized treatments , continue IV steroids. I performed a history & physical examination of the patient and discussed their management with my nurse practitioner, Meagan Carrasco. I reviewed the nurse practitioner's note and agree with the documented findings and plan of care. Lung sounds are positive for end expiratory wheezes. The findings and the impression was discussed with the patient. I attest to the documentation by the nurse practitioner. Time with Patient: Less than 30
[2017-07-04] MEDS ORDERED: MORPHINE ORAL SOLN 10 MG/5 ML CUP PO PRN (17:16)
[2017-07-04 17:20] LABS: Glucose,Whole Blood 129 mg/dL (75-99)
[2017-07-04 20:17] LABS: Glucose,Whole Blood 159 mg/dL (75-99)
[2017-07-04] MEDS: BACLOFEN 10 MG TAB PO SCH (21:14)
[2017-07-04] MEDS: CALCIUM POLYCARBOPHIL 625 MG TAB PO SCH (21:14)
[2017-07-05] MEDS: HYDROcodone/APAP 7.5-325MG 1 EACH TAB PO PRN ×4 (00:07→22:25)
[2017-07-05] MEDS: traZODone HCL 50 MG TAB PO PRN ×2 (00:08→22:21)
[2017-07-05] MEDS: methylPREDNISolone SOD SUCCI 125 MG/2 ML VIAL IV SCH ×3 (00:08→12:11)
[2017-07-05] MEDS: PIPERACILLIN-TAZOBACTAM 3.375 GM in DEXTROSE/WATER 1 50ML.BAG IVPB SCH ×3 (04:52→19:30)
[2017-07-05] MEDS: SODIUM CHLORIDE 0.9% 1,000 ML IV SCH (05:12)
[2017-07-05 07:13] LABS: Glucose,Whole Blood 111 mg/dL (75-99)
[2017-07-05] MEDS: IPRATROPIUM-ALBUTEROL 3 ML NEB INHALATION SCH ×4 (07:16→19:56)
--- NOTE | 2017-07-05 07:28 | XR ---
EXAMINATION TYPE: XR chest 2V DATE OF EXAM: 07/05/2017 COMPARISON: Prior chest x-ray 07/03/2017 HISTORY: Pneumonia TECHNIQUE: Frontal and lateral views of the chest are obtained. FINDINGS: Findings are similar to prior exam. Prominent lung volumes suggest COPD. The heart is smal l. There is a spinal curvature. No pneumothorax or pleural effusion. Minimal patchy density persists in the right costophrenic angle, lingula. No sizable effusion. Coronary artery calcifications are pre sent. Suspect some improvement in aeration in the posterior lung bases. IMPRESSION: Some improvement in aeration.
[2017-07-05] MEDS: INSULIN ASPART 100 UNIT/ML 1 ML 10 ML VIAL SQ SCH ×4 (07:30→22:22)
[2017-07-05 08:24] LABS: ALT 52 U/L (9-52); AST 46 U/L (14-36); Alkaline Phosphatase 91 U/L (38-126); Anion Gap 4 mmol/L; Blood Urea Nitrogen 11 mg/dL (7-17); Calcium 9.6 mg/dL (8.4-10.2); Carbon Dioxide 27 mmol/L (22-30); Chloride 115 mmol/L (98-107); Glucose 115 mg/dL (74-99); Sodium 146 mmol/L (137-145); Total Bilirubin 0.2 mg/dL (0.2-1.3); Total Protein 5.9 g/dL (6.3-8.2)
[2017-07-05 08:34] LABS: Basophils % (A) 0 %; Eosinophils # (A) 0.1 k/uL (0-0.7); Eosinophils % (A) 0 %; HCT 32.9 % (34.0-46.0); HGB 10.5 gm/dL (11.4-16.0); Lymphocytes # (A) 1.1 k/uL (1.0-4.8); Lymphocytes % (A) 4 %; MCH 29.7 pg (25.0-35.0); MCHC 31.8 g/dL (31.0-37.0); MCV 93.2 fL (80.0-100.0); Mean Platelet Volume 7.4; Monocytes # (A) 0.9 k/uL (0-1.0); Monocytes % (A) 4 %; Neutrophils # (A) 22.7 k/uL (1.3-7.7); Neutrophils % (A) 91 %; Platelet Count 359 k/uL (150-450); RBC 3.53 m/uL (3.80-5.40); RDW 14.3 % (11.5-15.5); WBC 24.9 k/uL (3.8-10.6)
[2017-07-05] MEDS: guaiFENesin 600 MG TABLET.ER PO SCH ×2 (08:36→22:22)
[2017-07-05] MEDS: TOPIRAMATE 100 MG TAB PO SCH ×2 (08:36→22:25)
[2017-07-05] MEDS: PANTOPRAZOLE 40 MG TABLET PO SCH (08:36)
[2017-07-05] MEDS: GABAPENTIN 400 MG CAP PO SCH ×4 (08:36→22:25)
[2017-07-05] MEDS: LEVOFLOXACIN 750 MG TAB PO SCH (08:36)
[2017-07-05] MEDS: buPROPion XL 150 MG TAB.ER.24H PO SCH ×3 (08:36→22:25)
[2017-07-05] MEDS: ENOXAPARIN 40 MG/0.4 ML SYRINGE SQ SCH (08:37)
[2017-07-05] MEDS: NICOTINE 7MG/24HR PATCH TRANSDERM SCH (08:37)
[2017-07-05] MEDS: SPIRONOLACTONE 25 MG TAB PO SCH (08:37)
[2017-07-05] MEDS: SERTRALINE 50 MG TAB PO SCH (09:49)
[2017-07-05 11:10] LABS: Glucose,Whole Blood 120 mg/dL (75-99)
[2017-07-05] MEDS ORDERED: LACTULOSE 20 GM/30 ML CUP PO ONE (13:07)
--- NOTE | 2017-07-05 13:13 | P.PN ---
Subjective Progress Note Date: 07/05/17 This is a 56-year-old female, patient of Dr. Jefferson. 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 Patient presents to the emergency room with complaints of cough and shortness of breath that did not improve with outpatient treatment. Patient had been at the clinic and was treated for a bronchitis at that time was given a course of Z-Fred and steroids. Patient reports she's having symptoms for about 2 weeks did not approve with treatment. Patient came into the emergency room for further evaluation and treatment. She had a white count 24.2 elevated d-dimer of 0.87 influenza screen was negative. She underwent a CTA of the chest which was negative for PE. Did reveal a nonspecific infiltrate present at the bilateral lung bases with some possible soft tissue density in the right infrahilar region. Pulmonary service consulted. Patient started on IV antibiotics currently in the form of Levaquin and IV Zosyn. Also started on IV Solu-Medrol and bronchodilators for COPD exacerbation. 07/05/2017 patient reports that she still not feeling well. Still having some cough. She is reporting some left-sided chest pain and rib pain. Likely is related to her cough. She has keep packs in place that appear to be helping. We'll check troponin. Her breathing is improving as well as her cough. She denies any nausea or vomiting. She is complaining of constipation been about 3 days since her last bowel movement. Chest x-ray showing improvement. Patient complaining of a flushed face likely related to steroids. She is requesting that the steroids be decreased. Also complaining of some occasional nosebleeds when she blows her nose. Objective - Vital Signs Vital signs: Vital Signs Temp 97.8 F 07/05/17 07:00 Pulse 75 07/05/17 08:00 Resp 16 07/05/17 08:00 BP 116/76 07/05/17 07:00 Pulse Ox 98 07/05/17 07:00 Intake & Output 07/04/17 07/05/17 07/05/17 18:59 06:59 18:59 Intake Total 1000 550 Balance 1000 550 Intake: IV 500 Sodium Chloride 0.9% 1, 500 000 ml @ 100 mls/hr IV . Q10H [facility] Rx#:[id number] Intake, IV Titration 50 Amount Piperacillin-Tazobactam 3 50 .375 gm In Dextrose/Water 1 50ml.bag @ 12.5 mls/hr IVPB Q8H [facility] Rx#: [id number] Oral 1000 Other: Voiding Method Toilet Toilet Toilet Diaper # Voids 5 1 - Exam Head normocephalic Neck supple Lungs improvement in air movement. No wheezing Heart regular rate and rhythm S1-S2, no rub or gallop Abdomen is soft nontender nondistended positive bowel sounds no hepatosplenomegaly Extremities no edema Neuro alert and orientated to 3 - Labs CBC & Chem 7: 07/05/17 07:32 07/05/17 07:32 Labs: Abnormal Lab Results - Last 24 Hours (Table) 07/04/17 07/04/17 07/05/17 Range/Units 17:19 20:15 07:11 WBC (3.8-10.6) k/uL RBC (3.80-5.40) m/uL Hgb (11.4-16.0) gm/dL Hct (34.0-46.0) % Neutrophils # (1.3-7.7) k/uL Sodium (137-145) mmol/L Chloride (98-107) mmol/L Glucose (74-99) mg/dL POC Glucose (mg/dL) 129 H 159 H 111 H (75-99) mg/dL AST (14-36) U/L Total Protein (6.3-8.2) g/dL Albumin (3.5-5.0) g/dL 07/05/17 07/05/17 07/05/17 Range/Units 07:32 07:32 11:06 WBC 24.9 H (3.8-10.6) k/uL RBC 3.53 L (3.80-5.40) m/uL Hgb 10.5 L (11.4-16.0) gm/dL Hct 32.9 L (34.0-46.0) % Neutrophils # 22.7 H (1.3-7.7) k/uL Sodium 146 H (137-145) mmol/L Chloride 115 H (98-107) mmol/L Glucose 115 H (74-99) mg/dL POC Glucose (mg/dL) 120 H (75-99) mg/dL AST 46 H (14-36) U/L Total Protein 5.9 L (6.3-8.2) g/dL Albumin 3.0 L (3.5-5.0) g/dL Microbiology - Last 24 Hours (Table) 07/04/17 12:23 Gram Stain - Preliminary Sputum 07/02/17 20:20 Blood Culture - Preliminary Blood No Growth after 48 hours Assessment and Plan Assessment: 1. Gram-negative Bilateral pneumonia: Sputum culture pending. Continue Levaquin. Pulmonary service following. Appreciate their input. Chest x-ray showing improvement 2. Acute COPD exacerbation secondary to the bilateral pneumonia. Pulmonary service following. Decrease IV Solu-Medrol to 40 mg every 12 hours 3. Leukocytosis present on admission likely related to patient's pneumonia and she had recently been on prednisone outpatient 4. Essential hypertension 5. Nicotine dependence: Discussed smoking cessation for greater than 3 minutes. Add nicotine patch 6. Elevated d-dimer on admission. CTA negative for PE 7. 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 Constipation: Give a dose of lactulose 9. Left-sided rib, back and chest pain: Likely related to patient's cough. We' ll check a troponin to rule out cardiac cause GI prophylaxis Protonix and DVT prophylaxis Lovenox Anticipating discharge possibly tomorrow I performed an examination of the patient and discussed their management with the physician Sales Office Administrator. I have reviewed the Physician Sales Office Administrator's notes and agree with the documented findings and plan of care
--- NOTE | 2017-07-05 15:16 | P.PN ---
Subjective Progress Note Date: 07/05/17 A pleasant 66-year-old female patient is presenting to the hospital because of worsening shortness of breath. The patient is a chronic smoker. The patient came into the hospital for increased cough, chest congestion, chest tightness that was progressively getting worse over the past week or so. The patient was seen in urgent care and she was diagnosed having a rest or checked infection/ bronchitis and the patient was given a course of Z-Fred and steroids. Nevertheless she failed to improve. She did have some fever earlier approximately a week ago and currently she is afebrile. No nausea. No vomiting. No abdominal pain. She has diminished appetite. She is having pain across her left posterior back area which is somewhat pleuritic in nature. No hemoptysis for now. She came into the hospital and she was slightly tachycardic. She was not tachypneic. Her temperature was 98.2. A chest x-ray was done that was nonspecific and subsequently a CAT scan of the chest was done that showed lower lobe nodular bilateral pulmonary infiltrates along with some consolidation over the lingular segment along the left cardiac border. This is consistent with bilateral pneumonia. No reported aspiration per no sick contacts. Influenza screen was negative. No travel history. The patient rides the bus and she could have been exposed to other people with respiratory difficulties and problems. She is currently on Levaquin. She is also started on DuoNeb nebulized treatment [id number]. On 07/04/2017 patient seen in follow-up. Resting in bed, denies any acute distress. Still becomes dyspneic, lightheaded, tachycardic with ambulation. Reports her breathing is slightly better today. Lung sounds good air entry bilaterally, few scattered wheezes, bronchospastic cough improving. Not able to bring up much sputum, but did produce a sputum specimen for culture. Blood culture is negative at the 24-hour rima. Afebrile, vital signs are stable. Patient is on room air with O2 sat at 98%. Today's blood work shows improvement in the leukocytosis, WBC is down to 18.0 from 24.2, serum sodium is slightly elevated at 146, normal renal profile. Patient's influenza screen was negative. We'll continue with current plan of treatment. On 07/05/2017 I'm seeing this patient for a follow-up. Despite her complaints of chest discomfort and tightness, the patient clinically sounds much improved since she came into the hospital. She has a clear chest x-ray on today's evaluation. Lung examination shows improved air entry bilaterally. No fever chills or night sweats. The white cell count is elevated at 24.9 still in the rest of the blood work essentially within normal limits. The sputum sample was positive for Winter albicans and the blood culture been negative. Meanwhile the patient is still accommodation Zosyn and Levaquin. No altered mentation. No nausea or vomiting. No diarrhea or abdominal pain. She is still being treated for multilobar pneumonia. Last bronchus spastic and wheezy on today's evaluation. On a Medrol has been tapered down to 40 mg IV every 12 hours. Objective - Vital Signs Vital signs: Vital Signs Temp 97.7 F 07/05/17 14:52 Pulse 76 07/05/17 14:52 Resp 18 07/05/17 14:52 BP 133/97 07/05/17 14:52 Pulse Ox 99 07/05/17 14:52 Intake & Output 07/04/17 07/05/17 07/05/17 18:59 06:59 18:59 Intake Total 1000 550 Balance 1000 550 Intake: IV 500 Sodium Chloride 0.9% 1, 500 000 ml @ 100 mls/hr IV . Q10H [facility] Rx#:[id number] Intake, IV Titration 50 Amount Piperacillin-Tazobactam 3 50 .375 gm In Dextrose/Water 1 50ml.bag @ 12.5 mls/hr IVPB Q8H [facility] Rx#: [id number] Oral 1000 Other: Voiding Method Toilet Toilet Toilet Diaper # Voids 5 1 - Exam GENERAL EXAM: Alert, pleasant, thin 56-year-old white female, resting in bed, comfortable in no apparent distress. HEAD: Normocephalic/atraumatic. EYES: Normal reaction of pupils, equal size. Conjunctiva pink, sclera white. NOSE: Clear with pink turbinates. THROAT: No erythema or exudates. NECK: No masses, no JVD, no thyroid enlargement, no adenopathy. CHEST: No chest wall deformity. Symmetrical expansion. LUNGS: Equal air entry with no crackles, a few end expiratory wheezing, bronchospastic cough which has noted to be improving from previous exams. CVS: Regular rate and rhythm, normal S1 and S2, no gallops, no murmurs, no rubs ABDOMEN: Soft, nontender. No hepatosplenomegaly, normal bowel sounds, no guarding or rigidity. EXTREMITIES: No clubbing, no edema, no cyanosis, 2+ pulses and upper and lower extremities. MUSCULOSKELETAL: Muscle strength and tone normal. SPINE: No scoliosis or deformity SKIN: No rashes CENTRAL NERVOUS SYSTEM: Alert and oriented -3. No focal deficits, tone is normal in all 4 extremities. PSYCHIATRIC: Alert and oriented -3. Appropriate affect. Intact judgment and insight. - Labs CBC & Chem 7: 07/05/17 07:32 07/05/17 07:32 Labs: Abnormal Lab Results - Last 24 Hours (Table) 07/04/17 07/04/17 07/05/17 Range/Units 17:19 20:15 07:11 WBC (3.8-10.6) k/uL RBC (3.80-5.40) m/uL Hgb (11.4-16.0) gm/dL Hct (34.0-46.0) % Neutrophils # (1.3-7.7) k/uL Sodium (137-145) mmol/L Chloride (98-107) mmol/L Glucose (74-99) mg/dL POC Glucose (mg/dL) 129 H 159 H 111 H (75-99) mg/dL AST (14-36) U/L Total Protein (6.3-8.2) g/dL Albumin (3.5-5.0) g/dL 07/05/17 07/05/17 07/05/17 Range/Units 07:32 07:32 11:06 WBC 24.9 H (3.8-10.6) k/uL RBC 3.53 L (3.80-5.40) m/uL Hgb 10.5 L (11.4-16.0) gm/dL Hct 32.9 L (34.0-46.0) % Neutrophils # 22.7 H (1.3-7.7) k/uL Sodium 146 H (137-145) mmol/L Chloride 115 H (98-107) mmol/L Glucose 115 H (74-99) mg/dL POC Glucose (mg/dL) 120 H (75-99) mg/dL AST 46 H (14-36) U/L Total Protein 5.9 L (6.3-8.2) g/dL Albumin 3.0 L (3.5-5.0) g/dL Microbiology - Last 24 Hours (Table) 07/04/17 12:23 Gram Stain - Preliminary Sputum Sputum Culture - Preliminary Winter albicans 07/02/17 20:20 Blood Culture - Preliminary Blood No Growth after 48 hours Assessment and Plan Plan: Assessment 1 bilateral pneumonia. The pneumonia is affecting mainly the lower lobes and the patient has no other better pulmonary infiltrates in addition to a consolidation in the lingular segment of the left upper lobe. As such the patient has multilobar pneumonia. In addition the patient has leukocytosis in addition to increased cough and wheezing which is typical of an acute COPD exacerbation 2 COPD with acute exacerbation secondary to bilateral pneumonia 3 leukocytosis secondary to above 4 shortness of breath secondary to above 5 anxiety/depression 6 acid reflux 7 chronic pain 8 hypertension Plan Clinically improving. Sputum cultures negative. Winter albicans in the sputum is likely a colonizer. Continue Zosyn and Levaquin. Steroids have been tapered. Encourage ambulation. Pulse ox on room air is up to 94-95%. She is not requiring oxygen supplementation. Monitor white cell count. Discharge planning is in progress. Clinically stable for now.
[2017-07-05 16:55] LABS: Glucose,Whole Blood 128 mg/dL (75-99)
[2017-07-05 21:16] LABS: Glucose,Whole Blood 99 mg/dL (75-99)
[2017-07-05] MEDS: BACLOFEN 10 MG TAB PO SCH (22:21)
[2017-07-05] MEDS: CALCIUM POLYCARBOPHIL 625 MG TAB PO SCH (22:22)
[2017-07-05] MEDS: methylPREDNISolone SOD SUCCI 40 MG/ML 1 ML VIAL IV SCH (22:25)
[2017-07-06] MEDS: PIPERACILLIN-TAZOBACTAM 3.375 GM in DEXTROSE/WATER 1 50ML.BAG IVPB SCH ×2 (04:45→13:43)
[2017-07-06] MEDS: HYDROcodone/APAP 7.5-325MG 1 EACH TAB PO PRN ×3 (04:46→23:42)
[2017-07-06] MEDS: SODIUM CHLORIDE 0.9% 1,000 ML IV SCH (05:48)
[2017-07-06 08:10] LABS: HCT 34.4 % (34.0-46.0); HGB 10.8 gm/dL (11.4-16.0); Hypochromasia Slight; MCH 29.4 pg (25.0-35.0); MCHC 31.5 g/dL (31.0-37.0); MCV 93.4 fL (80.0-100.0); Mean Platelet Volume 7.2; Platelet Count 349 k/uL (150-450); RBC 3.69 m/uL (3.80-5.40); RDW 14.5 % (11.5-15.5); WBC 20.1 k/uL (3.8-10.6)
[2017-07-06] MEDS: TOPIRAMATE 100 MG TAB PO SCH ×2 (08:13→22:49)
[2017-07-06] MEDS: ENOXAPARIN 40 MG/0.4 ML SYRINGE SQ SCH (08:14)
[2017-07-06] MEDS: LEVOFLOXACIN 750 MG TAB PO SCH (08:14)
[2017-07-06] MEDS: SPIRONOLACTONE 25 MG TAB PO SCH (08:14)
[2017-07-06] MEDS: guaiFENesin 600 MG TABLET.ER PO SCH ×2 (08:14→21:37)
[2017-07-06] MEDS: methylPREDNISolone SOD SUCCI 40 MG/ML 1 ML VIAL IV SCH (08:14)
[2017-07-06] MEDS: GABAPENTIN 400 MG CAP PO SCH ×4 (08:15→22:49)
[2017-07-06] MEDS: NICOTINE 7MG/24HR PATCH TRANSDERM SCH (08:15)
[2017-07-06] MEDS: PANTOPRAZOLE 40 MG TABLET PO SCH (08:15)
[2017-07-06] MEDS: SERTRALINE 50 MG TAB PO SCH (08:16)
[2017-07-06] MEDS: buPROPion XL 150 MG TAB.ER.24H PO SCH ×3 (08:16→21:37)
[2017-07-06 08:18] LABS: ALT 41 U/L (9-52); AST 23 U/L (14-36); Albumin 2.9 g/dL (3.5-5.0); Alkaline Phosphatase 75 U/L (38-126); Anion Gap 9 mmol/L; Blood Urea Nitrogen 9 mg/dL (7-17); Calcium 9.3 mg/dL (8.4-10.2); Carbon Dioxide 25 mmol/L (22-30); Chloride 113 mmol/L (98-107); Glucose 90 mg/dL (74-99); Potassium 3.5 mmol/L (3.5-5.1); Sodium 147 mmol/L (137-145); Total Bilirubin 0.2 mg/dL (0.2-1.3); Total Protein 5.7 g/dL (6.3-8.2)
[2017-07-06] MEDS: IPRATROPIUM-ALBUTEROL 3 ML NEB INHALATION SCH ×4 (08:33→20:11)
[2017-07-06 09:42] LABS: Band Neutrophils % 4 %; Lymphocytes # (M) 2.41 k/uL (1.0-4.8); Metamyelocytes % 4 %; Monocytes # (M) 1.21 k/uL (0-1.0); Myelocytes % 3 %; Neutrophils % (M) 73 %; Nucleated Red Blood Cells 0 /100 WBC (0-0); Total Cells Counted 200
[2017-07-06] MEDS: INSULIN ASPART 100 UNIT/ML 1 ML 10 ML VIAL SQ SCH ×4 (09:44→21:37)
[2017-07-06 12:15] LABS: Glucose,Whole Blood 107 mg/dL (75-99)
--- NOTE | 2017-07-06 13:17 | P.PN ---
Subjective Progress Note Date: 07/06/17 This is a 56-year-old female, patient of Dr. Jefferson. 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 Patient presents to the emergency room with complaints of cough and shortness of breath that did not improve with outpatient treatment. Patient had been at the clinic and was treated for a bronchitis at that time was given a course of Z-Fred and steroids. Patient reports she's having symptoms for about 2 weeks did not approve with treatment. Patient came into the emergency room for further evaluation and treatment. She had a white count 24.2 elevated d-dimer of 0.87 influenza screen was negative. She underwent a CTA of the chest which was negative for PE. Did reveal a nonspecific infiltrate present at the bilateral lung bases with some possible soft tissue density in the right infrahilar region. Pulmonary service consulted. Patient started on IV antibiotics currently in the form of Levaquin and IV Zosyn. Also started on IV Solu-Medrol and bronchodilators for COPD exacerbation. 07/05/2017 patient reports that she still not feeling well. Still having some cough. She is reporting some left-sided chest pain and rib pain. Likely is related to her cough. She has keep packs in place that appear to be helping. We'll check troponin. Her breathing is improving as well as her cough. She denies any nausea or vomiting. She is complaining of constipation been about 3 days since her last bowel movement. Chest x-ray showing improvement. Patient complaining of a flushed face likely related to steroids. She is requesting that the steroids be decreased. Also complaining of some occasional nosebleeds when she blows her nose. 07/06/2017 patient still has cough. Improvement in shortness of breath. Has been up and ambulating in the hallway. Denies any chest pain. Denies any nausea or vomiting. She is complaining of diarrhea. She was given lactulose yesterday for constipation. Stool sent for C. diff has been ordered since she has been on antibiotics. Objective - Vital Signs Vital signs: Vital Signs Temp 98.4 F 07/06/17 07:00 Pulse 84 07/06/17 11:01 Resp 16 07/06/17 11:01 BP 142/89 07/06/17 07:00 Pulse Ox 97 07/06/17 10:50 Intake & Output 07/05/17 07/06/17 07/06/17 18:59 06:59 18:59 Intake Total 50 1790 Balance 50 1790 Weight 46.266 kg Intake: IV 800 Sodium Chloride 0.9% 1, 800 000 ml @ 100 mls/hr IV . Q10H [facility] Rx#:[id number] Intake, IV Titration 50 50 Amount Piperacillin-Tazobactam 3 50 50 .375 gm In Dextrose/Water 1 50ml.bag @ 12.5 mls/hr IVPB Q8H [facility] Rx#: [id number] Oral 940 Other: Voiding Method Toilet Toilet # Voids 2 - Exam Head normocephalic Neck supple Lungs improvement in air movement. No wheezing Heart regular rate and rhythm S1-S2, no rub or gallop Abdomen is soft nontender nondistended positive bowel sounds no hepatosplenomegaly Extremities no edema Neuro alert and orientated to 3 - Labs CBC & Chem 7: 07/06/17 07:17 07/06/17 07:17 Labs: Abnormal Lab Results - Last 24 Hours (Table) 07/05/17 07/06/17 07/06/17 Range/Units 16:54 07:17 07:17 WBC 20.1 H (3.8-10.6) k/uL RBC 3.69 L (3.80-5.40) m/uL Hgb 10.8 L (11.4-16.0) gm/dL Neutrophils # (Manual) 15.40 H (1.3-7.7) k/uL Monocytes # (Manual) 1.21 H (0-1.0) k/uL Metamyelocytes # (Man) 0.80 H (0) k/uL Myelocytes # (Manual) 0.60 H (0) k/uL Sodium 147 H (137-145) mmol/L Chloride 113 H (98-107) mmol/L POC Glucose (mg/dL) 128 H (75-99) mg/dL Total Protein 5.7 L (6.3-8.2) g/dL Albumin 2.9 L (3.5-5.0) g/dL 07/06/17 Range/Units 12:10 WBC (3.8-10.6) k/uL RBC (3.80-5.40) m/uL Hgb (11.4-16.0) gm/dL Neutrophils # (Manual) (1.3-7.7) k/uL Monocytes # (Manual) (0-1.0) k/uL Metamyelocytes # (Man) (0) k/uL Myelocytes # (Manual) (0) k/uL Sodium (137-145) mmol/L Chloride (98-107) mmol/L POC Glucose (mg/dL) 107 H (75-99) mg/dL Total Protein (6.3-8.2) g/dL Albumin (3.5-5.0) g/dL Microbiology - Last 24 Hours (Table) 07/04/17 12:23 Gram Stain - Final Sputum Sputum Culture - Final Winter albicans 07/02/17 20:20 Blood Culture - Preliminary Blood No Growth after 72 hours Assessment and Plan Assessment: 1. Gram-negative Bilateral pneumonia: Sputum culture growing Winter albicans. Seen by pulmonary service. [place] this was a colonization. Continue Levaquin and Zosyn. Pulmonary service following. Appreciate their input. Chest x-ray showing improvement 2. Acute COPD exacerbation secondary to the bilateral pneumonia. Pulmonary service following. Decrease IV Solu-Medrol to 40 mg every 12 hours 3. Leukocytosis present on admission likely related to patient's pneumonia and she had recently been on prednisone outpatient 4. Essential hypertension 5. Nicotine dependence: Discussed smoking cessation for greater than 3 minutes. Add nicotine patch 6. Elevated d-dimer on admission. CTA negative for PE 7. 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 Constipation resolved. Now having diarrhea. Check stool for C. diff due to the her having been on antibiotics 9. Left-sided rib, back and chest pain: Likely related to patient's cough. Troponin negative GI prophylaxis Protonix and DVT prophylaxis Lovenox Anticipating discharge possibly tomorrow I performed an examination of the patient and discussed their management with the physician Senior Trainer. I have reviewed the Physician Senior Trainer's notes and agree with the documented findings and plan of care
[2017-07-06] MEDS: SODIUM CHLORIDE 0.45% 1,000 ML IV SCH (16:11)
[2017-07-06 17:02] LABS: Glucose,Whole Blood 95 mg/dL (75-99)
--- NOTE | 2017-07-06 18:06 | P.PN ---
Subjective Progress Note Date: 07/06/17 A pleasant 66-year-old female patient is presenting to the hospital because of worsening shortness of breath. The patient is a chronic smoker. The patient came into the hospital for increased cough, chest congestion, chest tightness that was progressively getting worse over the past week or so. The patient was seen in urgent care and she was diagnosed having a rest or checked infection/ bronchitis and the patient was given a course of Z-Fred and steroids. Nevertheless she failed to improve. She did have some fever earlier approximately a week ago and currently she is afebrile. No nausea. No vomiting. No abdominal pain. She has diminished appetite. She is having pain across her left posterior back area which is somewhat pleuritic in nature. No hemoptysis for now. She came into the hospital and she was slightly tachycardic. She was not tachypneic. Her temperature was 98.2. A chest x-ray was done that was nonspecific and subsequently a CAT scan of the chest was done that showed lower lobe nodular bilateral pulmonary infiltrates along with some consolidation over the lingular segment along the left cardiac border. This is consistent with bilateral pneumonia. No reported aspiration per no sick contacts. Influenza screen was negative. No travel history. The patient rides the bus and she could have been exposed to other people with respiratory difficulties and problems. She is currently on Levaquin. She is also started on DuoNeb nebulized treatment [id number]. On 07/04/2017 patient seen in follow-up. Resting in bed, denies any acute distress. Still becomes dyspneic, lightheaded, tachycardic with ambulation. Reports her breathing is slightly better today. Lung sounds good air entry bilaterally, few scattered wheezes, bronchospastic cough improving. Not able to bring up much sputum, but did produce a sputum specimen for culture. Blood culture is negative at the 24-hour rima. Afebrile, vital signs are stable. Patient is on room air with O2 sat at 98%. Today's blood work shows improvement in the leukocytosis, WBC is down to 18.0 from 24.2, serum sodium is slightly elevated at 146, normal renal profile. Patient's influenza screen was negative. We'll continue with current plan of treatment. On 07/05/2017 I'm seeing this patient for a follow-up. Despite her complaints of chest discomfort and tightness, the patient clinically sounds much improved since she came into the hospital. She has a clear chest x-ray on today's evaluation. Lung examination shows improved air entry bilaterally. No fever chills or night sweats. The white cell count is elevated at 24.9 still in the rest of the blood work essentially within normal limits. The sputum sample was positive for Winter albicans and the blood culture been negative. Meanwhile the patient is still accommodation Zosyn and Levaquin. No altered mentation. No nausea or vomiting. No diarrhea or abdominal pain. She is still being treated for multilobar pneumonia. Last bronchus spastic and wheezy on today's evaluation. On a Medrol has been tapered down to 40 mg IV every 12 hours. On 07/06/2017, patient is being seen for a follow-up and the patient is doing well with the exception of some side effects reported due to steroid intake. She is having increased liquidy bowel movements and diarrhea which is probably an antibiotic side effects. Follow pulmonary standpoint, cough and congestion is improved and the patient is currently on room air. Her sodium level is up to 148 and this is probably related to intravascular volume depletion diarrhea. Stool for C. diff has been sent and the results of his pending for now. She is afebrile. She is ambulating. Objective - Vital Signs Vital signs: Vital Signs Temp 98.4 F 07/06/17 07:00 Pulse 82 07/06/17 16:24 Resp 16 07/06/17 16:24 BP 142/89 07/06/17 07:00 Pulse Ox 97 07/06/17 16:14 Intake & Output 07/05/17 07/06/17 07/06/17 18:59 06:59 18:59 Intake Total 50 1790 290 Balance 50 1790 290 Weight 46.266 kg Intake: IV 800 Sodium Chloride 0.9% 1, 800 000 ml @ 100 mls/hr IV . Q10H [facility] Rx#:[id number] Intake, IV Titration 50 50 50 Amount Piperacillin-Tazobactam 3 50 50 50 .375 gm In Dextrose/Water 1 50ml.bag @ 12.5 mls/hr IVPB Q8H [facility] Rx#: [id number] Oral 940 240 Other: Voiding Method Toilet Toilet Toilet # Voids 2 3 - Exam GENERAL EXAM: Alert, pleasant, thin 56-year-old white female, resting in bed, comfortable in no apparent distress. HEAD: Normocephalic/atraumatic. EYES: Normal reaction of pupils, equal size. Conjunctiva pink, sclera white. NOSE: Clear with pink turbinates. THROAT: No erythema or exudates. NECK: No masses, no JVD, no thyroid enlargement, no adenopathy. CHEST: No chest wall deformity. Symmetrical expansion. LUNGS: Equal air entry with no crackles, a few end expiratory wheezing, bronchospastic cough which has noted to be improving from previous exams. CVS: Regular rate and rhythm, normal S1 and S2, no gallops, no murmurs, no rubs ABDOMEN: Soft, nontender. No hepatosplenomegaly, normal bowel sounds, no guarding or rigidity. EXTREMITIES: No clubbing, no edema, no cyanosis, 2+ pulses and upper and lower extremities. MUSCULOSKELETAL: Muscle strength and tone normal. SPINE: No scoliosis or deformity SKIN: No rashes CENTRAL NERVOUS SYSTEM: Alert and oriented -3. No focal deficits, tone is normal in all 4 extremities. PSYCHIATRIC: Alert and oriented -3. Appropriate affect. Intact judgment and insight. - Labs CBC & Chem 7: 07/06/17 07:17 07/06/17 07:17 Labs: Abnormal Lab Results - Last 24 Hours (Table) 07/06/17 07/06/17 07/06/17 Range/Units 07:17 07:17 12:10 WBC 20.1 H (3.8-10.6) k/uL RBC 3.69 L (3.80-5.40) m/uL Hgb 10.8 L (11.4-16.0) gm/dL Neutrophils # (Manual) 15.40 H (1.3-7.7) k/uL Monocytes # (Manual) 1.21 H (0-1.0) k/uL Metamyelocytes # (Man) 0.80 H (0) k/uL Myelocytes # (Manual) 0.60 H (0) k/uL Sodium 147 H (137-145) mmol/L Chloride 113 H (98-107) mmol/L POC Glucose (mg/dL) 107 H (75-99) mg/dL Total Protein 5.7 L (6.3-8.2) g/dL Albumin 2.9 L (3.5-5.0) g/dL Microbiology - Last 24 Hours (Table) 07/04/17 12:23 Gram Stain - Final Sputum Sputum Culture - Final Winter albicans 07/02/17 20:20 Blood Culture - Preliminary Blood No Growth after 72 hours Assessment and Plan Plan: Assessment 1 bilateral pneumonia. The pneumonia is affecting mainly the lower lobes and the patient has no other better pulmonary infiltrates in addition to a consolidation in the lingular segment of the left upper lobe. As such the patient has multilobar pneumonia. In addition the patient has leukocytosis in addition to increased cough and wheezing which is typical of an acute COPD exacerbation 2 COPD with acute exacerbation secondary to bilateral pneumonia 3 leukocytosis secondary to above 4 shortness of breath secondary to above 5 anxiety/depression 6 acid reflux 7 chronic pain 8 hypertension 9 acute diarrhea, antibiotic induced 10 hypernatremia, sodium level of 147 Plan Clinically improving. Sputum cultures negative. Winter albicans in the sputum is likely a colonizer. This continued IV Solu Medrol due to reported side effect. At half-normal saline at the rate of 75 mL an hour regarding the hypernatremia and intravascularly volume depletion. Stool for C. diff. May also discontinue the Zosyn and keep the patient only on Levaquin. We'll continue to follow.
[2017-07-06 20:08] LABS: Glucose,Whole Blood 100 mg/dL (75-99)
[2017-07-06] MEDS: CALCIUM POLYCARBOPHIL 625 MG TAB PO SCH (21:37)
[2017-07-06] MEDS: BACLOFEN 10 MG TAB PO SCH (22:49)
[2017-07-06] MEDS: traZODone HCL 50 MG TAB PO PRN (23:42)
[2017-07-07] MEDS: SODIUM CHLORIDE 0.45% 1,000 ML IV SCH ×3 (01:52→15:45)
[2017-07-07 06:47] LABS: Glucose,Whole Blood 86 mg/dL (75-99)
[2017-07-07] MEDS: IPRATROPIUM-ALBUTEROL 3 ML NEB INHALATION SCH ×4 (07:12→20:28)
[2017-07-07] MEDS: INSULIN ASPART 100 UNIT/ML 1 ML 10 ML VIAL SQ SCH ×4 (07:32→20:47)
[2017-07-07 07:48] LABS: ALT 40 U/L (9-52); AST 26 U/L (14-36); Albumin 2.7 g/dL (3.5-5.0); Alkaline Phosphatase 68 U/L (38-126); Anion Gap 8 mmol/L; Blood Urea Nitrogen 6 mg/dL (7-17); Calcium 9.1 mg/dL (8.4-10.2); Carbon Dioxide 27 mmol/L (22-30); Chloride 113 mmol/L (98-107); Glucose 82 mg/dL (74-99); Potassium 3.2 mmol/L (3.5-5.1); Sodium 148 mmol/L (137-145); Total Bilirubin 0.2 mg/dL (0.2-1.3); Total Protein 5.3 g/dL (6.3-8.2)
[2017-07-07 07:58] LABS: HCT 35.8 % (34.0-46.0); HGB 11.4 gm/dL (11.4-16.0); MCH 29.4 pg (25.0-35.0); MCHC 31.9 g/dL (31.0-37.0); MCV 92.3 fL (80.0-100.0); Platelet Count 350 k/uL (150-450); RBC 3.88 m/uL (3.80-5.40); RDW 14.4 % (11.5-15.5); WBC 16.1 k/uL (3.8-10.6)
[2017-07-07] MEDS: NICOTINE 7MG/24HR PATCH TRANSDERM SCH (08:44)
[2017-07-07] MEDS: GABAPENTIN 400 MG CAP PO SCH ×4 (08:44→22:35)
[2017-07-07] MEDS: PANTOPRAZOLE 40 MG TABLET PO SCH (08:44)
[2017-07-07] MEDS: LEVOFLOXACIN 750 MG TAB PO SCH (08:44)
[2017-07-07] MEDS: SERTRALINE 50 MG TAB PO SCH (08:44)
[2017-07-07] MEDS: guaiFENesin 600 MG TABLET.ER PO SCH ×2 (08:44→20:10)
[2017-07-07] MEDS: SPIRONOLACTONE 25 MG TAB PO SCH (08:44)
[2017-07-07] MEDS: buPROPion XL 150 MG TAB.ER.24H PO SCH ×3 (08:44→22:35)
[2017-07-07] MEDS: TOPIRAMATE 100 MG TAB PO SCH ×2 (08:44→22:35)
[2017-07-07] MEDS: ENOXAPARIN 40 MG/0.4 ML SYRINGE SQ SCH (08:44)
[2017-07-07 09:01] LABS: Band Neutrophils % 4 %; Lymphocytes # (M) 3.22 k/uL (1.0-4.8); Metamyelocytes # (M) 0.64 k/uL (0); Metamyelocytes % 4 %; Monocytes # (M) 0.97 k/uL (0-1.0); Myelocytes # (M) 0.32 k/uL (0); Myelocytes % 2 %; Neutrophils % (M) 65 %; Nucleated Red Blood Cells 0 /100 WBC (0-0); Poikilocytosis (M) Present; Polychromasia Present; Total Cells Counted 200
[2017-07-07] MEDS ORDERED: Potassium Replacement Protocol 1 EACH MISC MISCELLANE PRN ×2 (10:04→21:08)
[2017-07-07] MEDS: HYDROcodone/APAP 7.5-325MG 1 EACH TAB PO PRN ×2 (10:19→17:45)
[2017-07-07 11:44] LABS: Glucose,Whole Blood 76 mg/dL (75-99)
[2017-07-07] MEDS: POTASSIUM CHLORIDE ER 20 MEQ TAB.ER PO SCH ×3 (12:17→19:31)
[2017-07-07] MEDS: POTASSIUM CHLORIDE 10 MEQ in SODIUM CHLORIDE 0.9% 100 ML IVPB SCH (12:23)
--- NOTE | 2017-07-07 13:56 | P.PN ---
Subjective This is a 56-year-old female, patient of Dr. Jefferson. 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 Patient presents to the emergency room with complaints of cough and shortness of breath that did not improve with outpatient treatment. Patient had been at the clinic and was treated for a bronchitis at that time was given a course of Z-Fred and steroids. Patient reports she's having symptoms for about 2 weeks did not approve with treatment. Patient came into the emergency room for further evaluation and treatment. She had a white count 24.2 elevated d-dimer of 0.87 influenza screen was negative. She underwent a CTA of the chest which was negative for PE. Did reveal a nonspecific infiltrate present at the bilateral lung bases with some possible soft tissue density in the right infrahilar region. Pulmonary service consulted. Patient started on IV antibiotics currently in the form of Levaquin and IV Zosyn. Also started on IV Solu-Medrol and bronchodilators for COPD exacerbation. On 07/04/2017 patient is alert and oriented 3 still complaining of cough and complaining of shortness of breath with activity she is complaining of stiffness in her lower extremities after laying in bed for several hours otherwise she denies any complaints there is no fever or chills no headache no dizziness no chest pain no nausea or vomiting no abdominal pain no diarrhea and no urinary symptoms. 07/05/2017 patient reports that she still not feeling well. Still having some cough. She is reporting some left-sided chest pain and rib pain. Likely is related to her cough. She has keep packs in place that appear to be helping. We'll check troponin. Her breathing is improving as well as her cough. She denies any nausea or vomiting. She is complaining of constipation been about 3 days since her last bowel movement. Chest x-ray showing improvement. Patient complaining of a flushed face likely related to steroids. She is requesting that the steroids be decreased. Also complaining of some occasional nosebleeds when she blows her nose. 07/06/2017 patient still has cough. Improvement in shortness of breath. Has been up and ambulating in the hallway. Denies any chest pain. Denies any nausea or vomiting. She is complaining of diarrhea. She was given lactulose yesterday for constipation. Stool sent for C. diff has been ordered since she has been on antibiotics. On 07/07/2017 patient still complaining of cough and shortness of breath. Has been up and ambulating in the hallway. Denies any chest pain. Denies any nausea or vomiting. She is complaining of diarrhea. She was given lactulose yesterday for constipation. Stool sent for C. diff was negative. Sodium still elevated at 148 potassium is low at 3.2 Objective - Vital Signs Vital signs: Vital Signs Temp 98.1 F 07/07/17 07:00 Pulse 96 07/07/17 11:11 Resp 16 07/07/17 07:00 BP 125/81 07/07/17 07:00 Pulse Ox 98 07/07/17 07:00 Intake & Output 07/06/17 07/07/17 07/07/17 18:59 06:59 18:59 Intake Total 290 1100 1120 Balance 290 1100 1120 Weight 46.266 kg Intake: Intake, IV Titration 50 1100 600 Amount Piperacillin-Tazobactam 3 50 .375 gm In Dextrose/Water 1 50ml.bag @ 12.5 mls/hr IVPB Q8H [facility] Rx#: [id number] Sodium Chloride 0.45% 1, 1100 600 000 ml @ 100 mls/hr IV . Q10H [facility] Rx#:[id number] Oral 240 520 Other: Voiding Method Toilet Toilet Toilet # Voids 3 2 2 - Exam In general patient is alert and oriented 3 in no apparent distress HEENT head normocephalic and atraumatic Neck is supple no JVD no goiter no lymphadenopathy Chest exam reveals a crackles in both lung bases no wheezing Cardiac exam reveals regular heart sounds no gallops no murmurs Abdomen is soft nontender no organomegaly Extremity exam reveals no edema no cyanosis or clubbing - Labs CBC & Chem 7: 07/07/17 07:12 07/07/17 07:12 Labs: Abnormal Lab Results - Last 24 Hours (Table) 07/06/17 07/07/17 07/07/17 Range/Units 20:05 07:12 07:12 WBC 16.1 H (3.8-10.6) k/uL Neutrophils # (Manual) 11.10 H (1.3-7.7) k/uL Metamyelocytes # (Man) 0.64 H (0) k/uL Myelocytes # (Manual) 0.32 H (0) k/uL Sodium 148 H (137-145) mmol/L Potassium 3.2 L (3.5-5.1) mmol/L Chloride 113 H (98-107) mmol/L BUN 6 L (7-17) mg/dL POC Glucose (mg/dL) 100 H (75-99) mg/dL Total Protein 5.3 L (6.3-8.2) g/dL Albumin 2.7 L (3.5-5.0) g/dL Microbiology - Last 24 Hours (Table) 07/02/17 20:20 Blood Culture - Preliminary Blood No Growth after 96 hours 07/04/17 12:23 Gram Stain - Final Sputum Sputum Culture - Final Winter albicans Assessment and Plan Plan: 1. Gram-negative Bilateral pneumonia: Sputum culture growing Winter albicans. Seen by pulmonary service. [place] this was a colonization. Continue Levaquin and Zosyn. Pulmonary service following. Appreciate their input. Chest x-ray showing improvement 2. Acute COPD exacerbation secondary to the bilateral pneumonia. Pulmonary service following. Decrease IV Solu-Medrol to 40 mg every 12 hours 3. Leukocytosis present on admission likely related to patient's pneumonia and she had recently been on prednisone outpatient 4. Essential hypertension 5. Nicotine dependence: Discussed smoking cessation for greater than 3 minutes. Add nicotine patch 6. Elevated d-dimer on admission. CTA negative for PE 7. 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 Constipation resolved. Now having diarrhea. Check stool for C. diff due to the her having been on antibiotics 9. Left-sided rib, back and chest pain: Likely related to patient's cough. Troponin negative 10. Electrolyte imbalance correcting GI prophylaxis Protonix and DVT prophylaxis Lovenox
--- NOTE | 2017-07-07 16:05 | P.PN ---
Subjective Progress Note Date: 07/07/17 Principal diagnosis: Acute hypoxic respiratory failure secondary to bilateral pneumonia. A pleasant 66-year-old female patient is presenting to the hospital because of worsening shortness of breath. The patient is a chronic smoker. The patient came into the hospital for increased cough, chest congestion, chest tightness that was progressively getting worse over the past week or so. The patient was seen in urgent care and she was diagnosed having a rest or checked infection/ bronchitis and the patient was given a course of Z-Fred and steroids. Nevertheless she failed to improve. She did have some fever earlier approximately a week ago and currently she is afebrile. No nausea. No vomiting. No abdominal pain. She has diminished appetite. She is having pain across her left posterior back area which is somewhat pleuritic in nature. No hemoptysis for now. She came into the hospital and she was slightly tachycardic. She was not tachypneic. Her temperature was 98.2. A chest x-ray was done that was nonspecific and subsequently a CAT scan of the chest was done that showed lower lobe nodular bilateral pulmonary infiltrates along with some consolidation over the lingular segment along the left cardiac border. This is consistent with bilateral pneumonia. No reported aspiration per no sick contacts. Influenza screen was negative. No travel history. The patient rides the bus and she could have been exposed to other people with respiratory difficulties and problems. She is currently on Levaquin. She is also started on DuoNeb nebulized treatment [id number]. On 07/04/2017 patient seen in follow-up. Resting in bed, denies any acute distress. Still becomes dyspneic, lightheaded, tachycardic with ambulation. Reports her breathing is slightly better today. Lung sounds good air entry bilaterally, few scattered wheezes, bronchospastic cough improving. Not able to bring up much sputum, but did produce a sputum specimen for culture. Blood culture is negative at the 24-hour rima. Afebrile, vital signs are stable. Patient is on room air with O2 sat at 98%. Today's blood work shows improvement in the leukocytosis, WBC is down to 18.0 from 24.2, serum sodium is slightly elevated at 146, normal renal profile. Patient's influenza screen was negative. We'll continue with current plan of treatment. On 07/05/2017 I'm seeing this patient for a follow-up. Despite her complaints of chest discomfort and tightness, the patient clinically sounds much improved since she came into the hospital. She has a clear chest x-ray on today's evaluation. Lung examination shows improved air entry bilaterally. No fever chills or night sweats. The white cell count is elevated at 24.9 still in the rest of the blood work essentially within normal limits. The sputum sample was positive for Winter albicans and the blood culture been negative. Meanwhile the patient is still accommodation Zosyn and Levaquin. No altered mentation. No nausea or vomiting. No diarrhea or abdominal pain. She is still being treated for multilobar pneumonia. Last bronchus spastic and wheezy on today's evaluation. On a Medrol has been tapered down to 40 mg IV every 12 hours. On 07/06/2017, patient is being seen for a follow-up and the patient is doing well with the exception of some side effects reported due to steroid intake. She is having increased liquidy bowel movements and diarrhea which is probably an antibiotic side effects. Follow pulmonary standpoint, cough and congestion is improved and the patient is currently on room air. Her sodium level is up to 148 and this is probably related to intravascular volume depletion diarrhea. Stool for C. diff has been sent and the results of his pending for now. She is afebrile. She is ambulating. The patient is seen again today 07/08/2007 in follow-up in the regular medical floor. She is awake and alert in no acute distress. She is sitting up at bedside. She states she is breathing easier today as compared to yesterday. She is maintaining good O2 saturations in the high 90s on room air. She is afebrile. Hemodynamically stable. White count 16.1. Hemoglobin 11.4. Creatinine 0.72. She remains on Levaquin and bronchodilators. Objective - Vital Signs Vital signs: Vital Signs Temp 98.2 F 07/07/17 15:00 Pulse 100 07/07/17 15:50 Resp 18 07/07/17 15:00 BP 118/78 07/07/17 15:00 Pulse Ox 99 07/07/17 15:00 Intake & Output 07/06/17 07/07/17 07/07/17 18:59 06:59 18:59 Intake Total 290 1100 1120 Balance 290 1100 1120 Weight 46.266 kg Intake: Intake, IV Titration 50 1100 600 Amount Piperacillin-Tazobactam 3 50 .375 gm In Dextrose/Water 1 50ml.bag @ 12.5 mls/hr IVPB Q8H [facility] Rx#: [id number] Sodium Chloride 0.45% 1, 1100 600 000 ml @ 100 mls/hr IV . Q10H [facility] Rx#:[id number] Oral 240 520 Other: Voiding Method Toilet Toilet Toilet # Voids 3 2 2 - Exam GENERAL EXAM: Alert, active, comfortable in no apparent distress. HEAD: Normocephalic. EYES: Normal reaction of pupils, equal size. NOSE: Clear with pink turbinates. THROAT: No erythema or exudates. NECK: No masses, no JVD. CHEST: No chest wall deformity. LUNGS: Equal air entry with faint end expiratory wheeze. Diminished. CVS: S1 and S2 normal with no audible murmur, regular rhythm. ABDOMEN: No hepatosplenomegaly, normal bowel sounds, no guarding or rigidity. SPINE: No scoliosis or deformity SKIN: No rashes CENTRAL NERVOUS SYSTEM: No focal deficits, tone is normal in all 4 extremities. EXTREMITIES: There is no peripheral edema. No clubbing, no cyanosis. Peripheral pulses are intact. - Labs CBC & Chem 7: 07/07/17 07:12 07/07/17 13:30 Labs: Abnormal Lab Results - Last 24 Hours (Table) 07/06/17 07/07/17 07/07/17 Range/Units 20:05 07:12 07:12 WBC 16.1 H (3.8-10.6) k/uL Neutrophils # (Manual) 11.10 H (1.3-7.7) k/uL Metamyelocytes # (Man) 0.64 H (0) k/uL Myelocytes # (Manual) 0.32 H (0) k/uL Sodium 148 H (137-145) mmol/L Potassium 3.2 L (3.5-5.1) mmol/L Chloride 113 H (98-107) mmol/L BUN 6 L (7-17) mg/dL POC Glucose (mg/dL) 100 H (75-99) mg/dL Total Protein 5.3 L (6.3-8.2) g/dL Albumin 2.7 L (3.5-5.0) g/dL 07/07/17 Range/Units 13:30 WBC (3.8-10.6) k/uL Neutrophils # (Manual) (1.3-7.7) k/uL Metamyelocytes # (Man) (0) k/uL Myelocytes # (Manual) (0) k/uL Sodium (137-145) mmol/L Potassium 3.2 L (3.5-5.1) mmol/L Chloride (98-107) mmol/L BUN (7-17) mg/dL POC Glucose (mg/dL) (75-99) mg/dL Total Protein (6.3-8.2) g/dL Albumin (3.5-5.0) g/dL Microbiology - Last 24 Hours (Table) 07/02/17 20:20 Blood Culture - Preliminary Blood No Growth after 96 hours Assessment and Plan Assessment: Assessment 1 bilateral pneumonia. The pneumonia is affecting mainly the lower lobes and the patient has no other better pulmonary infiltrates in addition to a consolidation in the lingular segment of the left upper lobe. As such the patient has multilobar pneumonia. In addition the patient has leukocytosis in addition to increased cough and wheezing which is typical of an acute COPD exacerbation 2 COPD with acute exacerbation secondary to bilateral pneumonia 3 leukocytosis secondary to above, improved 4 shortness of breath secondary to above improved 5 anxiety/depression 6 acid reflux 7 chronic pain 8 hypertension 9 acute diarrhea, antibiotic induced 10 hypernatremia, sodium level of 148 Plan: The patient was seen and evaluated by Dr. Velazquez. She is improved from the pulmonary standpoint. She remains hypernatremic. We'll discontinue the 0.45 normal saline and change her to D5W at 75 MLS per hour. She is again educated regarding the importance of complete smoking cessation. We'll continue with her current therapy for now. We'll increase her activity as tolerated. We'll continue to follow. I, the cosigning physician, performed a history & physical examination of the patient. Lungs sounds faint end expiratory wheeze. Diminished.. Maintaining good O2 saturations in the 90s on room air. I discussed the assessment and plan of care with my nurse practitioner, Ariana Le. I attest to the above note as dictated by her.
[2017-07-07] MEDS: DEXTROSE 5% IN WATER 1,000 ML IV SCH (16:47)
[2017-07-07 17:04] LABS: Glucose,Whole Blood 91 mg/dL (75-99)
[2017-07-07] MEDS: NYSTATIN 100,000 UNIT/ML SUSP 500,000 UNIT/5 ML CUP PO SCH ×3 (17:36→23:23)
[2017-07-07] MEDS: CALCIUM POLYCARBOPHIL 625 MG TAB PO SCH (20:10)
[2017-07-07 20:40] LABS: Glucose,Whole Blood 99 mg/dL (75-99)
[2017-07-07] MEDS ORDERED: POTASSIUM CHLORIDE ER 20 MEQ TAB.ER PO SCH (22:00)
[2017-07-07] MEDS: BACLOFEN 10 MG TAB PO SCH (22:35)
[2017-07-08] MEDS: HYDROcodone/APAP 7.5-325MG 1 EACH TAB PO PRN ×4 (00:07→23:35)
[2017-07-08] MEDS: traZODone HCL 50 MG TAB PO PRN ×2 (00:26→23:35)
[2017-07-08] MEDS: NYSTATIN 100,000 UNIT/ML SUSP 500,000 UNIT/5 ML CUP PO SCH ×5 (05:40→23:35)
[2017-07-08 06:56] LABS: Glucose,Whole Blood 85 mg/dL (75-99)
[2017-07-08] MEDS: IPRATROPIUM-ALBUTEROL 3 ML NEB INHALATION SCH ×4 (07:17→20:55)
[2017-07-08] MEDS: GABAPENTIN 400 MG CAP PO SCH ×4 (07:17→22:39)
[2017-07-08] MEDS: buPROPion XL 150 MG TAB.ER.24H PO SCH ×3 (07:18→22:39)
[2017-07-08] MEDS: guaiFENesin 600 MG TABLET.ER PO SCH ×2 (07:18→22:38)
[2017-07-08] MEDS: SPIRONOLACTONE 25 MG TAB PO SCH (07:18)
[2017-07-08] MEDS: TOPIRAMATE 100 MG TAB PO SCH ×2 (07:19→22:39)
[2017-07-08] MEDS: ENOXAPARIN 40 MG/0.4 ML SYRINGE SQ SCH (07:19)
[2017-07-08] MEDS: NICOTINE 7MG/24HR PATCH TRANSDERM SCH (07:19)
[2017-07-08] MEDS: SERTRALINE 50 MG TAB PO SCH (07:19)
[2017-07-08] MEDS: LEVOFLOXACIN 750 MG TAB PO SCH (07:19)
[2017-07-08] MEDS: INSULIN ASPART 100 UNIT/ML 1 ML 10 ML VIAL SQ SCH ×4 (07:20→22:38)
[2017-07-08] MEDS: PANTOPRAZOLE 40 MG TABLET PO SCH (07:20)
[2017-07-08] MEDS: DEXTROSE 5% IN WATER 1,000 ML IV SCH ×3 (07:26→21:07)
[2017-07-08 08:36] LABS: Potassium 3.7 mmol/L (3.5-5.1)
[2017-07-08 11:12] LABS: Glucose,Whole Blood 89 mg/dL (75-99)
[2017-07-08 12:15] LABS: ALT 47 U/L (9-52); AST 29 U/L (14-36); Albumin 2.9 g/dL (3.5-5.0); Alkaline Phosphatase 81 U/L (38-126); Anion Gap 8 mmol/L; Blood Urea Nitrogen 6 mg/dL (7-17); Calcium 9.2 mg/dL (8.4-10.2); Carbon Dioxide 28 mmol/L (22-30); Chloride 108 mmol/L (98-107); Glucose 76 mg/dL (74-99); Sodium 144 mmol/L (137-145); Total Bilirubin 0.3 mg/dL (0.2-1.3); Total Protein 5.7 g/dL (6.3-8.2)
--- NOTE | 2017-07-08 16:15 | P.PN ---
Subjective Progress Note Date: 07/08/17 Acute hypoxic respiratory failure secondary to bilateral pneumonia. A pleasant 66-year-old female patient is presenting to the hospital because of worsening shortness of breath. The patient is a chronic smoker. The patient came into the hospital for increased cough, chest congestion, chest tightness that was progressively getting worse over the past week or so. The patient was seen in urgent care and she was diagnosed having a rest or checked infection/ bronchitis and the patient was given a course of Z-Fred and steroids. Nevertheless she failed to improve. She did have some fever earlier approximately a week ago and currently she is afebrile. No nausea. No vomiting. No abdominal pain. She has diminished appetite. She is having pain across her left posterior back area which is somewhat pleuritic in nature. No hemoptysis for now. She came into the hospital and she was slightly tachycardic. She was not tachypneic. Her temperature was 98.2. A chest x-ray was done that was nonspecific and subsequently a CAT scan of the chest was done that showed lower lobe nodular bilateral pulmonary infiltrates along with some consolidation over the lingular segment along the left cardiac border. This is consistent with bilateral pneumonia. No reported aspiration per no sick contacts. Influenza screen was negative. No travel history. The patient rides the bus and she could have been exposed to other people with respiratory difficulties and problems. She is currently on Levaquin. She is also started on DuoNeb nebulized treatment [id number]. On 07/04/2017 patient seen in follow-up. Resting in bed, denies any acute distress. Still becomes dyspneic, lightheaded, tachycardic with ambulation. Reports her breathing is slightly better today. Lung sounds good air entry bilaterally, few scattered wheezes, bronchospastic cough improving. Not able to bring up much sputum, but did produce a sputum specimen for culture. Blood culture is negative at the 24-hour rima. Afebrile, vital signs are stable. Patient is on room air with O2 sat at 98%. Today's blood work shows improvement in the leukocytosis, WBC is down to 18.0 from 24.2, serum sodium is slightly elevated at 146, normal renal profile. Patient's influenza screen was negative. We'll continue with current plan of treatment. On 07/05/2017 I'm seeing this patient for a follow-up. Despite her complaints of chest discomfort and tightness, the patient clinically sounds much improved since she came into the hospital. She has a clear chest x-ray on today's evaluation. Lung examination shows improved air entry bilaterally. No fever chills or night sweats. The white cell count is elevated at 24.9 still in the rest of the blood work essentially within normal limits. The sputum sample was positive for Winter albicans and the blood culture been negative. Meanwhile the patient is still accommodation Zosyn and Levaquin. No altered mentation. No nausea or vomiting. No diarrhea or abdominal pain. She is still being treated for multilobar pneumonia. Last bronchus spastic and wheezy on today's evaluation. On a Medrol has been tapered down to 40 mg IV every 12 hours. On 07/06/2017, patient is being seen for a follow-up and the patient is doing well with the exception of some side effects reported due to steroid intake. She is having increased liquidy bowel movements and diarrhea which is probably an antibiotic side effects. Follow pulmonary standpoint, cough and congestion is improved and the patient is currently on room air. Her sodium level is up to 148 and this is probably related to intravascular volume depletion diarrhea. Stool for C. diff has been sent and the results of his pending for now. She is afebrile. She is ambulating. The patient is seen again today 07/08/2007 in follow-up in the regular medical floor. She is awake and alert in no acute distress. She is sitting up at bedside. She states she is breathing easier today as compared to yesterday. She is maintaining good O2 saturations in the high 90s on room air. She is afebrile. Hemodynamically stable. White count 16.1. Hemoglobin 11.4. Creatinine 0.72. She remains on Levaquin and bronchodilators. On 07/08/2017, I'm seeing this patient for a follow-up the patient is doing well and she has no specific complaints. Diarrhea is subsiding. Cough and chest congestion is also improving. No fever or chills. I've taken the patient of the Medrol and the patient is currently on a prednisone burst taper. She is also taken off the IV Zosyn and patient is currently only on Levaquin. She is getting hydrated with IV fluids and the creatinine is down to 0.7 and the sodium level is also improved is down to 144. She is ambulating. We'll looking for possible discharge in a.m. Objective - Vital Signs Vital signs: Vital Signs Temp 98.3 F 07/08/17 14:42 Pulse 99 07/08/17 14:42 Resp 16 07/08/17 14:42 BP 105/74 07/08/17 14:42 Pulse Ox 99 07/08/17 14:42 Intake & Output 07/07/17 07/08/17 07/08/17 17:59 06:59 18:59 Intake Total 1900 Output Total 1 Balance 1899 Weight Intake: Intake, IV Titration 600 Amount Dextrose 5% in Water 1, 600 000 ml @ 75 mls/hr IV . [id number] [facility] Rx#:[id number] Sodium Chloride 0.45% 1, 000 ml @ 100 mls/hr IV . Q10H [facility] Rx#:[id number] Oral 1300 Output: Urine Stool 1 Other: Voiding Method Toilet # Voids 3 - Exam GENERAL EXAM: Alert, pleasant, thin 56-year-old white female, resting in bed, comfortable in no apparent distress. HEAD: Normocephalic/atraumatic. EYES: Normal reaction of pupils, equal size. Conjunctiva pink, sclera white. NOSE: Clear with pink turbinates. THROAT: No erythema or exudates. NECK: No masses, no JVD, no thyroid enlargement, no adenopathy. CHEST: No chest wall deformity. Symmetrical expansion. LUNGS: Equal air entry with no crackles, a few end expiratory wheezing, bronchospastic cough which has noted to be improving from previous exams. CVS: Regular rate and rhythm, normal S1 and S2, no gallops, no murmurs, no rubs ABDOMEN: Soft, nontender. No hepatosplenomegaly, normal bowel sounds, no guarding or rigidity. EXTREMITIES: No clubbing, no edema, no cyanosis, 2+ pulses and upper and lower extremities. MUSCULOSKELETAL: Muscle strength and tone normal. SPINE: No scoliosis or deformity SKIN: No rashes CENTRAL NERVOUS SYSTEM: Alert and oriented -3. No focal deficits, tone is normal in all 4 extremities. PSYCHIATRIC: Alert and oriented -3. Appropriate affect. Intact judgment and insight. - Labs CBC & Chem 7: 07/07/17 07:12 07/08/17 07:47 Labs: Abnormal Lab Results - Last 24 Hours (Table) 07/08/17 Range/Units 07:47 Chloride 108 H (98-107) mmol/L BUN 6 L (7-17) mg/dL Total Protein 5.7 L (6.3-8.2) g/dL Albumin 2.9 L (3.5-5.0) g/dL Microbiology - Last 24 Hours (Table) 07/02/17 20:20 Blood Culture - Preliminary Blood No Growth after 120 hours Assessment and Plan Plan: Assessment 1 bilateral pneumonia, improving clinically and the patient is currently on room air. Zosyn was discontinued and the patient is currently on Levaquin. No fever no chills. Hemodynamically stable on room air. 2 COPD with acute exacerbation secondary to bilateral pneumonia, improving 3 leukocytosis secondary to above, improving 4 shortness of breath secondary to above, improving 5 anxiety/depression 6 acid reflux 7 chronic pain 8 hypertension 9 acute diarrhea, antibiotic induced 10 hypernatremia, , improving and the sodium level is normalized Plan Clinically improving. Sputum cultures negative. Winter albicans in the sputum is likely a colonizer. Continue Levaquin. Continue prednisone burst taper. Ablate this patient the hallway. Possible discharge in a.m.
--- NOTE | 2017-07-08 16:16 | P.PN ---
Subjective Progress Note Date: 07/08/17 This is a 56-year-old female, patient of Dr. Jefferson. 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 Patient presents to the emergency room with complaints of cough and shortness of breath that did not improve with outpatient treatment. Patient had been at the clinic and was treated for a bronchitis at that time was given a course of Z-Fred and steroids. Patient reports she's having symptoms for about 2 weeks did not approve with treatment. Patient came into the emergency room for further evaluation and treatment. She had a white count 24.2 elevated d-dimer of 0.87 influenza screen was negative. She underwent a CTA of the chest which was negative for PE. Did reveal a nonspecific infiltrate present at the bilateral lung bases with some possible soft tissue density in the right infrahilar region. Pulmonary service consulted. Patient started on IV antibiotics currently in the form of Levaquin and IV Zosyn. Also started on IV Solu-Medrol and bronchodilators for COPD exacerbation. On 07/04/2017 patient is alert and oriented 3 still complaining of cough and complaining of shortness of breath with activity she is complaining of stiffness in her lower extremities after laying in bed for several hours otherwise she denies any complaints there is no fever or chills no headache no dizziness no chest pain no nausea or vomiting no abdominal pain no diarrhea and no urinary symptoms. 07/05/2017 patient reports that she still not feeling well. Still having some cough. She is reporting some left-sided chest pain and rib pain. Likely is related to her cough. She has keep packs in place that appear to be helping. We'll check troponin. Her breathing is improving as well as her cough. She denies any nausea or vomiting. She is complaining of constipation been about 3 days since her last bowel movement. Chest x-ray showing improvement. Patient complaining of a flushed face likely related to steroids. She is requesting that the steroids be decreased. Also complaining of some occasional nosebleeds when she blows her nose. 07/06/2017 patient still has cough. Improvement in shortness of breath. Has been up and ambulating in the hallway. Denies any chest pain. Denies any nausea or vomiting. She is complaining of diarrhea. She was given lactulose yesterday for constipation. Stool sent for C. diff has been ordered since she has been on antibiotics. On 07/07/2017 patient still complaining of cough and shortness of breath. Has been up and ambulating in the hallway. Denies any chest pain. Denies any nausea or vomiting. She is complaining of diarrhea. She was given lactulose yesterday for constipation. Stool sent for C. diff was negative. Sodium still elevated at 148 potassium is low at 3.2 on 07/08/2017 patient is complaining of cough and shortness of breath. she has been ambulating in the hallway. Denies any chest pain. She is complaining of mouth pain Stool sent for C. diff was negative. Sodium still elevated at 144 potassium 3.7 Objective - Vital Signs Vital signs: Vital Signs Temp 98.3 F 07/08/17 14:42 Pulse 99 07/08/17 14:42 Resp 16 07/08/17 14:42 BP 105/74 07/08/17 14:42 Pulse Ox 99 07/08/17 14:42 Intake & Output 07/07/17 07/08/17 07/08/17 17:59 06:59 18:59 Intake Total 1900 Output Total 1 Balance 1899 Weight Intake: Intake, IV Titration 600 Amount Dextrose 5% in Water 1, 600 000 ml @ 75 mls/hr IV . [id number] [facility] Rx#:[id number] Sodium Chloride 0.45% 1, 000 ml @ 100 mls/hr IV . Q10H [facility] Rx#:[id number] Oral 1300 Output: Urine Stool 1 Other: Voiding Method Toilet # Voids 3 - Exam In general patient is alert and oriented 3 in no apparent distress HEENT head normocephalic and atraumatic Neck is supple no JVD no goiter no lymphadenopathy Chest exam reveals a crackles in both lung bases no wheezing Cardiac exam reveals regular heart sounds no gallops no murmurs Abdomen is soft nontender no organomegaly Extremity exam reveals no edema no cyanosis or clubbing - Labs CBC & Chem 7: 07/07/17 07:12 07/08/17 07:47 Labs: Abnormal Lab Results - Last 24 Hours (Table) 07/08/17 Range/Units 07:47 Chloride 108 H (98-107) mmol/L BUN 6 L (7-17) mg/dL Total Protein 5.7 L (6.3-8.2) g/dL Albumin 2.9 L (3.5-5.0) g/dL Microbiology - Last 24 Hours (Table) 07/02/17 20:20 Blood Culture - Preliminary Blood No Growth after 120 hours Assessment and Plan Plan: 1. Gram-negative Bilateral pneumonia: Sputum culture growing Winter albicans. Seen by pulmonary service. [place] this was a colonization. Continue Levaquin and Zosyn. Pulmonary service following. Appreciate their input. Chest x-ray showing improvement 2. Acute COPD exacerbation secondary to the bilateral pneumonia. Pulmonary service following. Decrease IV Solu-Medrol to 40 mg every 12 hours 3. Leukocytosis present on admission likely related to patient's pneumonia and she had recently been on prednisone outpatient 4. Essential hypertension 5. Nicotine dependence: Discussed smoking cessation for greater than 3 minutes. Add nicotine patch 6. Elevated d-dimer on admission. CTA negative for PE 7. 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 Constipation resolved. Now having diarrhea. Check stool for C. diff due to the her having been on antibiotics 9. Left-sided rib, back and chest pain: Likely related to patient's cough. Troponin negative 10. Electrolyte imbalance correcting 11. Oral candidiasis started on Nystatin mouth wash GI prophylaxis Protonix and DVT prophylaxis Lovenox
[2017-07-08 17:36] LABS: Glucose,Whole Blood 81 mg/dL (75-99)
[2017-07-08 17:36] LABS: Glucose,Whole Blood 262 mg/dL (75-99)
[2017-07-08 20:35] LABS: Glucose,Whole Blood 107 mg/dL (75-99)
[2017-07-08] MEDS: BACLOFEN 10 MG TAB PO SCH (22:37)
[2017-07-08] MEDS: CALCIUM POLYCARBOPHIL 625 MG TAB PO SCH (22:38)
[2017-07-09] MEDS: HYDROcodone/APAP 7.5-325MG 1 EACH TAB PO PRN ×3 (06:13→23:22)
[2017-07-09] MEDS: NYSTATIN 100,000 UNIT/ML SUSP 500,000 UNIT/5 ML CUP PO SCH ×4 (06:13→21:25)
[2017-07-09] MEDS: INSULIN ASPART 100 UNIT/ML 1 ML 10 ML VIAL SQ SCH ×4 (07:23→21:25)
[2017-07-09] MEDS: SPIRONOLACTONE 25 MG TAB PO SCH (07:25)
[2017-07-09] MEDS: guaiFENesin 600 MG TABLET.ER PO SCH ×2 (07:26→22:38)
[2017-07-09] MEDS: NICOTINE 7MG/24HR PATCH TRANSDERM SCH (07:26)
[2017-07-09] MEDS: ENOXAPARIN 40 MG/0.4 ML SYRINGE SQ SCH (07:26)
[2017-07-09] MEDS: GABAPENTIN 400 MG CAP PO SCH ×4 (07:26→22:38)
[2017-07-09] MEDS: buPROPion XL 150 MG TAB.ER.24H PO SCH ×3 (07:26→22:38)
[2017-07-09] MEDS: SERTRALINE 50 MG TAB PO SCH (07:26)
[2017-07-09] MEDS: TOPIRAMATE 100 MG TAB PO SCH ×2 (07:26→22:38)
[2017-07-09] MEDS: PANTOPRAZOLE 40 MG TABLET PO SCH (07:27)
[2017-07-09 07:33] LABS: Glucose,Whole Blood 84 mg/dL (75-99)
[2017-07-09] MEDS: IPRATROPIUM-ALBUTEROL 3 ML NEB INHALATION SCH ×4 (07:42→19:36)
[2017-07-09 08:36] LABS: ALT 45 U/L (9-52); AST 32 U/L (14-36); Albumin 3.2 g/dL (3.5-5.0); Alkaline Phosphatase 77 U/L (38-126); Anion Gap 7 mmol/L; Blood Urea Nitrogen 8 mg/dL (7-17); Calcium 9.3 mg/dL (8.4-10.2); Carbon Dioxide 30 mmol/L (22-30); Chloride 107 mmol/L (98-107); Glucose 77 mg/dL (74-99); Potassium 3.8 mmol/L (3.5-5.1); Sodium 144 mmol/L (137-145); Total Bilirubin 0.3 mg/dL (0.2-1.3); Total Protein 5.9 g/dL (6.3-8.2)
[2017-07-09 08:37] LABS: HCT 39.7 % (34.0-46.0); HGB 12.8 gm/dL (11.4-16.0); MCH 30.1 pg (25.0-35.0); MCHC 32.3 g/dL (31.0-37.0); Mean Platelet Volume 7.1; Platelet Count 349 k/uL (150-450); RBC 4.27 m/uL (3.80-5.40); RDW 14.6 % (11.5-15.5); WBC 18.5 k/uL (3.8-10.6)
[2017-07-09] MEDS: DEXTROSE 5% IN WATER 1,000 ML IV SCH ×2 (10:43→23:30)
[2017-07-09 11:29] LABS: Glucose,Whole Blood 95 mg/dL (75-99)
[2017-07-09 11:33] LABS: Band Neutrophils % 8 %; Eosinophils # (M) 0.37 k/uL (0-0.7); Lymphocytes # (M) 1.85 k/uL (1.0-4.8); Metamyelocytes # (M) 0.56 k/uL (0); Metamyelocytes % 3 %; Monocytes # (M) 0.37 k/uL (0-1.0); Myelocytes # (M) 0.74 k/uL (0); Myelocytes % 4 %; Neutrophils % (M) 74 %; Nucleated Red Blood Cells 0 /100 WBC (0-0); Total Cells Counted 200
[2017-07-09 11:34] LABS: Anisocytosis (M) Present; Poikilocytosis (M) Present
[2017-07-09 12:46] LABS: Glucose,Whole Blood 94 mg/dL (75-99)
[2017-07-09] MEDS ORDERED: predniSONE 20 MG TAB PO SCH (13:00)
[2017-07-09] MEDS ORDERED: LEVOFLOXACIN 500 MG TAB PO SCH (13:00)
[2017-07-09] MEDS ORDERED: FLUCONAZOLE 150 MG TAB PO STA (13:26)
[2017-07-09] MEDS ORDERED: DIPHENOX-ATROP 2.5-0.025 MG 1 EACH TAB PO PRN (13:26)
--- NOTE | 2017-07-09 13:29 | P.PN ---
Subjective Progress Note Date: 07/09/17 This is a 56-year-old female, patient of Dr. Jefferson. 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 Patient presents to the emergency room with complaints of cough and shortness of breath that did not improve with outpatient treatment. Patient had been at the clinic and was treated for a bronchitis at that time was given a course of Z-Fred and steroids. Patient reports she's having symptoms for about 2 weeks did not approve with treatment. Patient came into the emergency room for further evaluation and treatment. She had a white count 24.2 elevated d-dimer of 0.87 influenza screen was negative. She underwent a CTA of the chest which was negative for PE. Did reveal a nonspecific infiltrate present at the bilateral lung bases with some possible soft tissue density in the right infrahilar region. Pulmonary service consulted. Patient started on IV antibiotics currently in the form of Levaquin and IV Zosyn. Also started on IV Solu-Medrol and bronchodilators for COPD exacerbation. 07/05/2017 patient reports that she still not feeling well. Still having some cough. She is reporting some left-sided chest pain and rib pain. Likely is related to her cough. She has keep packs in place that appear to be helping. We'll check troponin. Her breathing is improving as well as her cough. She denies any nausea or vomiting. She is complaining of constipation been about 3 days since her last bowel movement. Chest x-ray showing improvement. Patient complaining of a flushed face likely related to steroids. She is requesting that the steroids be decreased. Also complaining of some occasional nosebleeds when she blows her nose. 07/06/2017 patient still has cough. Improvement in shortness of breath. Has been up and ambulating in the hallway. Denies any chest pain. Denies any nausea or vomiting. She is complaining of diarrhea. She was given lactulose yesterday for constipation. Stool sent for C. diff has been ordered since she has been on antibiotics. 07/09/2017 patient complaining of dizziness when she stands. Orthostatics checked and were negative. Patient is Aldactone for her skin, it was prescribed by her respiratory physician. Patient denies any chest pain or shortness of breath. She reports improvement in her cough. She still complaining of diarrhea. Stool for C. diff was negative. Objective - Vital Signs Vital signs: Vital Signs Temp 97.8 F 07/09/17 07:00 Pulse 92 07/09/17 11:25 Resp 18 07/09/17 07:00 BP 91/59 07/09/17 10:32 Pulse Ox 98 07/09/17 07:00 Intake & Output 07/08/17 07/09/17 07/09/17 18:59 06:59 18:59 Intake Total 1900 225 Output Total 1 1 Balance 1899 224 Intake: Intake, IV Titration 600 225 Amount Dextrose 5% in Water 1, 600 225 000 ml @ 75 mls/hr IV . [id number] [facility] Rx#:[id number] Oral 1300 Output: Stool 1 1 Other: Voiding Method Toilet Toilet Toilet Diaper # Voids 3 1 - Exam Head normocephalic Neck supple Lungs improvement in air movement. No wheezing Heart regular rate and rhythm S1-S2, no rub or gallop Abdomen is soft nontender nondistended positive bowel sounds no hepatosplenomegaly Extremities no edema Neuro alert and orientated to 3 - Labs CBC & Chem 7: 07/09/17 07:40 07/09/17 07:40 Labs: Abnormal Lab Results - Last 24 Hours (Table) 07/08/17 07/08/17 07/09/17 Range/Units 17:32 20:15 07:40 WBC 18.5 H (3.8-10.6) k/uL Neutrophils # (Manual) 15.10 H (1.3-7.7) k/uL Metamyelocytes # (Man) 0.56 H (0) k/uL Myelocytes # (Manual) 0.74 H (0) k/uL POC Glucose (mg/dL) 262 H 107 H (75-99) mg/dL Total Protein (6.3-8.2) g/dL Albumin (3.5-5.0) g/dL 07/09/17 Range/Units 07:40 WBC (3.8-10.6) k/uL Neutrophils # (Manual) (1.3-7.7) k/uL Metamyelocytes # (Man) (0) k/uL Myelocytes # (Manual) (0) k/uL POC Glucose (mg/dL) (75-99) mg/dL Total Protein 5.9 L (6.3-8.2) g/dL Albumin 3.2 L (3.5-5.0) g/dL Microbiology - Last 24 Hours (Table) 07/02/17 20:20 Blood Culture - Final Blood No Growth after 144 hours Assessment and Plan Assessment: 1. Gram-negative Bilateral pneumonia: Sputum culture growing Winter albicans. Seen by pulmonary service. [place] this was a colonization. Patient has completed antibiotic treatment during her hospitalization 2. Acute COPD exacerbation secondary to the bilateral pneumonia. Patient currently off of steroids 3. Leukocytosis present on admission likely related to patient's pneumonia and she had recently been on prednisone outpatient 4. Essential hypertension 5. Nicotine dependence: Discussed smoking cessation for greater than 3 minutes. Add nicotine patch 6. Elevated d-dimer on admission. CTA negative for PE 7. 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 Constipation resolved. Now having diarrhea. Check stool for C. diff due to the her having been on antibiotics 9. Left-sided rib, back and chest pain: Likely related to patient's cough. Troponin negative 10. Oral candidiasis continue nystatin swish and swallow. We'll give 1 dose of Diflucan 11. Hypernatremia: Improved with D5W IV fluids. 12. Dizziness likely related to hypotension. No evidence of orthostatic hypotension. Discontinue Aldactone. 13. Diarrhea: Stool for C. diff negative. Start Lomotil GI prophylaxis Protonix and DVT prophylaxis Lovenox Anticipating discharge home tomorrow I performed an examination of the patient and discussed their management with the physician Knitter Helper. I have reviewed the Physician Knitter Helper's notes and agree with the documented findings and plan of care
--- NOTE | 2017-07-09 14:07 | P.PN ---
Subjective Progress Note Date: 07/09/17 Principal diagnosis: Acute bilateral pneumonia, COPD exacerbation A pleasant 66-year-old female patient is presenting to the hospital because of worsening shortness of breath. The patient is a chronic smoker. The patient came into the hospital for increased cough, chest congestion, chest tightness that was progressively getting worse over the past week or so. The patient was seen in urgent care and she was diagnosed having a rest or checked infection/ bronchitis and the patient was given a course of Z-Fred and steroids. Nevertheless she failed to improve. She did have some fever earlier approximately a week ago and currently she is afebrile. No nausea. No vomiting. No abdominal pain. She has diminished appetite. She is having pain across her left posterior back area which is somewhat pleuritic in nature. No hemoptysis for now. She came into the hospital and she was slightly tachycardic. She was not tachypneic. Her temperature was 98.2. A chest x-ray was done that was nonspecific and subsequently a CAT scan of the chest was done that showed lower lobe nodular bilateral pulmonary infiltrates along with some consolidation over the lingular segment along the left cardiac border. This is consistent with bilateral pneumonia. No reported aspiration per no sick contacts. Influenza screen was negative. No travel history. The patient rides the bus and she could have been exposed to other people with respiratory difficulties and problems. She is currently on Levaquin. She is also started on DuoNeb nebulized treatment [id number]. On 07/04/2017 patient seen in follow-up. Resting in bed, denies any acute distress. Still becomes dyspneic, lightheaded, tachycardic with ambulation. Reports her breathing is slightly better today. Lung sounds good air entry bilaterally, few scattered wheezes, bronchospastic cough improving. Not able to bring up much sputum, but did produce a sputum specimen for culture. Blood culture is negative at the 24-hour rima. Afebrile, vital signs are stable. Patient is on room air with O2 sat at 98%. Today's blood work shows improvement in the leukocytosis, WBC is down to 18.0 from 24.2, serum sodium is slightly elevated at 146, normal renal profile. Patient's influenza screen was negative. We'll continue with current plan of treatment. On 07/05/2017 I'm seeing this patient for a follow-up. Despite her complaints of chest discomfort and tightness, the patient clinically sounds much improved since she came into the hospital. She has a clear chest x-ray on today's evaluation. Lung examination shows improved air entry bilaterally. No fever chills or night sweats. The white cell count is elevated at 24.9 still in the rest of the blood work essentially within normal limits. The sputum sample was positive for Winter albicans and the blood culture been negative. Meanwhile the patient is still accommodation Zosyn and Levaquin. No altered mentation. No nausea or vomiting. No diarrhea or abdominal pain. She is still being treated for multilobar pneumonia. Last bronchus spastic and wheezy on today's evaluation. On a Medrol has been tapered down to 40 mg IV every 12 hours. On 07/06/2017, patient is being seen for a follow-up and the patient is doing well with the exception of some side effects reported due to steroid intake. She is having increased liquidy bowel movements and diarrhea which is probably an antibiotic side effects. Follow pulmonary standpoint, cough and congestion is improved and the patient is currently on room air. Her sodium level is up to 148 and this is probably related to intravascular volume depletion diarrhea. Stool for C. diff has been sent and the results of his pending for now. She is afebrile. She is ambulating. The patient is seen again today 07/08/2007 in follow-up in the regular medical floor. She is awake and alert in no acute distress. She is sitting up at bedside. She states she is breathing easier today as compared to yesterday. She is maintaining good O2 saturations in the high 90s on room air. She is afebrile. Hemodynamically stable. White count 16.1. Hemoglobin 11.4. Creatinine 0.72. She remains on Levaquin and bronchodilators. On 07/08/2017, I'm seeing this patient for a follow-up the patient is doing well and she has no specific complaints. Diarrhea is subsiding. Cough and chest congestion is also improving. No fever or chills. I've taken the patient of the Medrol and the patient is currently on a prednisone burst taper. She is also taken off the IV Zosyn and patient is currently only on Levaquin. She is getting hydrated with IV fluids and the creatinine is down to 0.7 and the sodium level is also improved is down to 144. She is ambulating. We'll looking for possible discharge in a.m. On 07/09/2017 patient seen in follow-up on medical surgical floor. She is ambulating in the hallway, tolerating activity well. She was noted to be hypotensive this morning with systolic in the 80s. Patient is complaining of being lightheaded, and weak. Less dyspneic. She states she has ongoing loose stools. She had 2 episodes of runny diarrhea this morning. She remains on IV 0.9 normal saline at a rate of 75 ML per hour. From pulmonary standpoint her breathing continues to improve, she denies any acute dyspnea, lung sounds are clear to auscultation, no rhonchi or wheezes noted. Her Zosyn was discontinued related to ongoing diarrhea. Her stool for C. diff colitis was negative. No altered mentation, no fever or chills. Sputum culture was positive for Winter albicans. Patient remains on Levaquin, and oral prednisone. Her appetite is improving, although her oral intake is still diminished. She is currently on room air, O2 sat at 98%. Her respirations are even and nonlabored. She is afebrile. Today's lab work has been reviewed, WBCs 18.5, hemoglobin is 12.8. Electrolytes and renal profile are all within the normal limits. Objective - Vital Signs Vital signs: Vital Signs Temp 97.8 F 07/09/17 07:00 Pulse 92 07/09/17 11:25 Resp 18 07/09/17 07:00 BP 91/59 07/09/17 10:32 Pulse Ox 98 07/09/17 07:00 Intake & Output 07/08/17 07/09/17 07/09/17 18:59 06:59 18:59 Intake Total 1900 225 Output Total 1 1 Balance 1899 224 Intake: Intake, IV Titration 600 225 Amount Dextrose 5% in Water 1, 600 225 000 ml @ 75 mls/hr IV . [id number] [facility] Rx#:[id number] Oral 1300 Output: Stool 1 1 Other: Voiding Method Toilet Toilet Toilet Diaper # Voids 3 1 - Exam GENERAL EXAM: Alert, pleasant, thin 56-year-old white female, resting in bed, comfortable in no apparent distress. HEAD: Normocephalic/atraumatic. EYES: Normal reaction of pupils, equal size. Conjunctiva pink, sclera white. NOSE: Clear with pink turbinates. THROAT: No erythema or exudates. NECK: No masses, no JVD, no thyroid enlargement, no adenopathy. CHEST: No chest wall deformity. Symmetrical expansion. LUNGS: Equal air entry with no crackles, no rhonchi or wheezes CVS: Regular rate and rhythm, normal S1 and S2, no gallops, no murmurs, no rubs ABDOMEN: Soft, nontender. No hepatosplenomegaly, normal bowel sounds, no guarding or rigidity. EXTREMITIES: No clubbing, no edema, no cyanosis, 2+ pulses and upper and lower extremities. MUSCULOSKELETAL: Muscle strength and tone normal. SPINE: No scoliosis or deformity SKIN: No rashes CENTRAL NERVOUS SYSTEM: Alert and oriented -3. No focal deficits, tone is normal in all 4 extremities. PSYCHIATRIC: Alert and oriented -3. Appropriate affect. Intact judgment and insight. - Labs CBC & Chem 7: 07/09/17 07:40 07/09/17 07:40 Labs: Abnormal Lab Results - Last 24 Hours (Table) 07/08/17 07/08/17 07/09/17 Range/Units 17:32 20:15 07:40 WBC 18.5 H (3.8-10.6) k/uL Neutrophils # (Manual) 15.10 H (1.3-7.7) k/uL Metamyelocytes # (Man) 0.56 H (0) k/uL Myelocytes # (Manual) 0.74 H (0) k/uL POC Glucose (mg/dL) 262 H 107 H (75-99) mg/dL Total Protein (6.3-8.2) g/dL Albumin (3.5-5.0) g/dL 07/09/17 Range/Units 07:40 WBC (3.8-10.6) k/uL Neutrophils # (Manual) (1.3-7.7) k/uL Metamyelocytes # (Man) (0) k/uL Myelocytes # (Manual) (0) k/uL POC Glucose (mg/dL) (75-99) mg/dL Total Protein 5.9 L (6.3-8.2) g/dL Albumin 3.2 L (3.5-5.0) g/dL Microbiology - Last 24 Hours (Table) 07/02/17 20:20 Blood Culture - Final Blood No Growth after 144 hours Assessment and Plan Plan: Assessment: 1 bilateral pneumonia. The pneumonia is affecting mainly the lower lobes and the patient has no other better pulmonary infiltrates in addition to a consolidation in the lingular segment of the left upper lobe. As such the patient has multilobar pneumonia. In addition the patient has leukocytosis in addition to increased cough and wheezing which is typical of an acute COPD exacerbation 2 COPD with acute exacerbation secondary to bilateral pneumonia, improving 3 leukocytosis secondary to above, improving 4 shortness of breath secondary to above, improved 5 anxiety/depression 6 acid reflux 7 chronic pain 8 hypertension 9 acute diarrhea, antibiotic induced. Stool for C. diff colitis was negative 10 hypernatremia, improving, and today's serum sodium 144 Plan Patient has improved in terms of dyspnea and chest congestion and bronchospasms. She is currently on room air, denies fever, denies any chills, denies any acute dyspnea. We'll to ambulate in the hallway, tolerates activity well. She remains on room air. Remains afebrile. Yesterday we discontinued Zosyn, patient still has some episodes of ongoing diarrhea, stool for C. diff colitis was negative. Oral intake is improving. She was noted to be hypotensive this morning, continue with IV hydration at 0.9 at 75 ML per hour. She is weak, lightheaded and tachycardic, probably still hypovolemic due to ongoing diarrhea. Patient has received 8 days of Levaquin with clinical improvement. We can discontinue the Levaquin in view of patient's overall clinical improvement, and ongoing diarrhea which seems to be antibiotic induced. I performed a history & physical examination of the patient and discussed their management with my nurse practitioner, Meagan Carrasco. I reviewed the nurse practitioner's note and agree with the documented findings and plan of care. Lung sounds are clear. The findings and the impression was discussed with the patient. I attest to the documentation by the nurse practitioner. Time with Patient: Less than 30
[2017-07-09 17:22] LABS: Glucose,Whole Blood 113 mg/dL (75-99)
[2017-07-09 20:59] LABS: Glucose,Whole Blood 158 mg/dL (75-99)
[2017-07-09] MEDS: BACLOFEN 10 MG TAB PO SCH (22:39)
[2017-07-09] MEDS: CALCIUM POLYCARBOPHIL 625 MG TAB PO SCH (22:39)
[2017-07-09] MEDS: traZODone HCL 50 MG TAB PO PRN (23:24)
[2017-07-10] MEDS: NYSTATIN 100,000 UNIT/ML SUSP 500,000 UNIT/5 ML CUP PO SCH ×3 (04:37→12:54)
[2017-07-10] MEDS: PANTOPRAZOLE 40 MG TABLET PO SCH (06:44)
[2017-07-10] MEDS: NICOTINE 7MG/24HR PATCH TRANSDERM SCH (06:51)
[2017-07-10 07:17] LABS: Glucose,Whole Blood 107 mg/dL (75-99)
[2017-07-10] MEDS: INSULIN ASPART 100 UNIT/ML 1 ML 10 ML VIAL SQ SCH ×2 (07:36→12:52)
[2017-07-10] MEDS: HYDROcodone/APAP 7.5-325MG 1 EACH TAB PO PRN ×2 (07:41→14:17)
[2017-07-10 07:58] LABS: ALT 51 U/L (9-52); AST 31 U/L (14-36); Albumin 3.5 g/dL (3.5-5.0); Alkaline Phosphatase 71 U/L (38-126); Anion Gap 11 mmol/L; Blood Urea Nitrogen 11 mg/dL (7-17); Calcium 9.8 mg/dL (8.4-10.2); Carbon Dioxide 26 mmol/L (22-30); Chloride 106 mmol/L (98-107); Glucose 114 mg/dL (74-99); Potassium 3.9 mmol/L (3.5-5.1); Sodium 143 mmol/L (137-145); Total Bilirubin 0.3 mg/dL (0.2-1.3); Total Protein 6.3 g/dL (6.3-8.2)
[2017-07-10] MEDS: IPRATROPIUM-ALBUTEROL 3 ML NEB INHALATION SCH ×2 (08:02→12:29)
[2017-07-10 08:35] LABS: HCT 37.8 % (34.0-46.0); HGB 12.2 gm/dL (11.4-16.0); MCHC 32.2 g/dL (31.0-37.0); MCV 93.2 fL (80.0-100.0); Platelet Count 331 k/uL (150-450); RBC 4.05 m/uL (3.80-5.40); RDW 14.5 % (11.5-15.5); WBC 18.5 k/uL (3.8-10.6)
[2017-07-10] MEDS: GABAPENTIN 400 MG CAP PO SCH ×2 (08:46→12:52)
[2017-07-10] MEDS: buPROPion XL 150 MG TAB.ER.24H PO SCH (08:47)
[2017-07-10] MEDS: SERTRALINE 50 MG TAB PO SCH (08:47)
[2017-07-10] MEDS: TOPIRAMATE 100 MG TAB PO SCH (08:47)
[2017-07-10] MEDS: guaiFENesin 600 MG TABLET.ER PO SCH (08:47)
[2017-07-10] MEDS: ENOXAPARIN 40 MG/0.4 ML SYRINGE SQ SCH (08:47)
[2017-07-10 11:34] VITALS: TEMP 98.2
[2017-07-10 11:36] LABS: Band Neutrophils % 1 %; Eosinophils # (M) 0.19 k/uL (0-0.7); Lymphocytes # (M) 2.04 k/uL (1.0-4.8); Metamyelocytes # (M) 0.37 k/uL (0); Metamyelocytes % 2 %; Monocytes # (M) 0.74 k/uL (0-1.0); Myelocytes # (M) 1.11 k/uL (0); Myelocytes % 6 %; Neutrophils % (M) 77 %; Nucleated Red Blood Cells 0 /100 WBC (0-0); Total Cells Counted 200
[2017-07-10 11:37] LABS: Poikilocytosis (M) Present
--- NOTE | 2017-07-10 11:40 | P.PN ---
Subjective Progress Note Date: 07/10/17 Principal diagnosis: Acute exacerbation of COPD and bilateral pneumonia. A pleasant 66-year-old female patient is presenting to the hospital because of worsening shortness of breath. The patient is a chronic smoker. The patient came into the hospital for increased cough, chest congestion, chest tightness that was progressively getting worse over the past week or so. The patient was seen in urgent care and she was diagnosed having a rest or checked infection/ bronchitis and the patient was given a course of Z-Fred and steroids. Nevertheless she failed to improve. She did have some fever earlier approximately a week ago and currently she is afebrile. No nausea. No vomiting. No abdominal pain. She has diminished appetite. She is having pain across her left posterior back area which is somewhat pleuritic in nature. No hemoptysis for now. She came into the hospital and she was slightly tachycardic. She was not tachypneic. Her temperature was 98.2. A chest x-ray was done that was nonspecific and subsequently a CAT scan of the chest was done that showed lower lobe nodular bilateral pulmonary infiltrates along with some consolidation over the lingular segment along the left cardiac border. This is consistent with bilateral pneumonia. No reported aspiration per no sick contacts. Influenza screen was negative. No travel history. The patient rides the bus and she could have been exposed to other people with respiratory difficulties and problems. She is currently on Levaquin. She is also started on DuoNeb nebulized treatment [id number]. On 07/10/2017, patient was seen on the pediatrics floor, doing much better, breathing a lot easier, no cough no wheezing no shortness of breath, feels intermittently lightheaded. No nausea no vomiting no abdominal pain no melena no hematemesis. Her C. diff screen was negative. Patient remains on IV fluid at 75 mL per hour. Pulmonary-george she is doing great, and I believe the patient could be considered for discharge planning today. And follow-up on outpatient basis. Labs were reviewed continues to have a bit of leukocytosis. Objective - Vital Signs Vital signs: Vital Signs Temp 97.6 F 07/10/17 07:20 Pulse 80 07/10/17 07:20 Resp 18 07/10/17 08:00 BP 107/71 07/10/17 07:20 Pulse Ox 98 07/10/17 07:20 Intake & Output 07/09/17 07/10/17 07/10/17 18:59 06:59 18:59 Intake Total 120 Balance 120 Intake: Oral 120 Other: Voiding Method Toilet Toilet Diaper # Voids 1 - Exam - Exam GENERAL EXAM: Alert, pleasant, thin 56-year-old white female, resting in bed, comfortable in no apparent distress. HEAD: Normocephalic/atraumatic. EYES: Normal reaction of pupils, equal size. Conjunctiva pink, sclera white. NOSE: Clear with pink turbinates. THROAT: No erythema or exudates. NECK: No masses, no JVD, no thyroid enlargement, no adenopathy. CHEST: No chest wall deformity. Symmetrical expansion. LUNGS: Equal air entry with no crackles, no rhonchi or wheezes CVS: Regular rate and rhythm, normal S1 and S2, no gallops, no murmurs, no rubs ABDOMEN: Soft, nontender. No hepatosplenomegaly, normal bowel sounds, no guarding or rigidity. EXTREMITIES: No clubbing, no edema, no cyanosis, 2+ pulses and upper and lower extremities. MUSCULOSKELETAL: Muscle strength and tone normal. SPINE: No scoliosis or deformity SKIN: No rashes CENTRAL NERVOUS SYSTEM: Alert and oriented -3. No focal deficits, tone is normal in all 4 extremities. PSYCHIATRIC: Alert and oriented -3. Appropriate affect. Intact judgment and insight. - Labs CBC & Chem 7: 07/10/17 06:48 07/10/17 06:48 Labs: Abnormal Lab Results - Last 24 Hours (Table) 07/09/17 07/09/17 07/09/17 Range/Units 07:40 17:09 20:47 WBC (3.8-10.6) k/uL Neutrophils # (Manual) 15.10 H (1.3-7.7) k/uL Metamyelocytes # (Man) 0.56 H (0) k/uL Myelocytes # (Manual) 0.74 H (0) k/uL Glucose (74-99) mg/dL POC Glucose (mg/dL) 113 H 158 H (75-99) mg/dL 07/10/17 07/10/17 07/10/17 Range/Units 06:48 06:48 07:14 WBC 18.5 H (3.8-10.6) k/uL Neutrophils # (Manual) (1.3-7.7) k/uL Metamyelocytes # (Man) (0) k/uL Myelocytes # (Manual) (0) k/uL Glucose 114 H (74-99) mg/dL POC Glucose (mg/dL) 107 H (75-99) mg/dL Assessment and Plan Assessment: 1 acute bilateral pneumonia. The pneumonia is affecting mainly the lower lobes and the patient has no other better pulmonary infiltrates in addition to a consolidation in the lingular As such the patient has multilobar pneumonia. In addition the patient has leukocytosis in addition to increased cough and wheezing which is typical of an acute COPD exacerbation 2 COPD with acute exacerbation secondary to bilateral pneumonia, improving 3 leukocytosis secondary to above, improving 4 shortness of breath secondary to above, improved 5 anxiety/depression 6 acid reflux 7 chronic pain 8 hypertension 9 acute diarrhea, antibiotic induced. Stool for C. diff colitis was negative 10 hypernatremia, improving, and today's serum sodium 14 3 Recommendation: Consider discharge planning today on oral antibiotics, prednisone burst and taper, taper the prednisone over 2 weeks. Follow-up with us in our office in one week. Time with Patient: Less than 30
[2017-07-10 12:00] LABS: Glucose,Whole Blood 100 mg/dL (75-99)
[2017-07-10 13:18] LABS: Glucose,Whole Blood 101 mg/dL (75-99)
[2017-07-10 13:20] VITALS: BP 103/73; PULSE 96; RESP 19
--- NOTE | 2017-07-10 14:48 | P.DS ---
Providers Date of admission: 07/02/17 20:21 Expected date of discharge: 07/10/17 Attending physician: Tessie Li Consults: 07/03/17 08:43 Consult Physician Routine Consulting Provider: Reji Velazquez Consult Reason/Comments: pneumonia, abnormal CT of chest Do you want consulting provider notified?: Yes Primary care physician: Katja Jefferson [facility] Course: Discharge diagnosis 1. Gram-negative Bilateral pneumonia: Sputum culture growing Winter albicans. Seen by pulmonary service. [place] this was a colonization. Patient has completed antibiotic treatment during her hospitalization 2. Acute COPD exacerbation secondary to the bilateral pneumonia. Patient currently off of steroids 3. Leukocytosis present on admission likely related to patient's pneumonia and she had recently been on prednisone outpatient 4. Essential hypertension 5. Nicotine dependence: Discussed smoking cessation for greater than 3 minutes. Add nicotine patch 6. Elevated d-dimer on admission. CTA negative for PE 7. 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 Constipation resolved. Now having diarrhea. Check stool for C. diff due to the her having been on antibiotics 9. Left-sided rib, back and chest pain: Likely related to patient's cough. Troponin negative 10. Oral candidiasis continue nystatin swish and swallow. We'll give 1 dose of Diflucan 11. Hypernatremia: Improved with D5W IV fluids. 12. Dizziness likely related to hypotension. No evidence of orthostatic hypotension. Discontinue Aldactone. 13. Diarrhea: Stool for C. diff negative. Resolved 14. moderate protein calorie malnutrition Hospital course This is a 56-year-old female, patient of Dr. Jefferson. 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 Patient presents to the emergency room with complaints of cough and shortness of breath that did not improve with outpatient treatment. Patient had been at the clinic and was treated for a bronchitis at that time was given a course of Z-Fred and steroids. Patient reports she's having symptoms for about 2 weeks did not approve with treatment. Patient came into the emergency room for further evaluation and treatment. She had a white count 24.2 elevated d-dimer of 0.87 influenza screen was negative. She underwent a CTA of the chest which was negative for PE. Did reveal a nonspecific infiltrate present at the bilateral lung bases with some possible soft tissue density in the right infrahilar region. Pulmonary service consulted. Patient started on IV antibiotics currently in the form of Levaquin and IV Zosyn. Also started on IV Solu-Medrol and bronchodilators for COPD exacerbation. Patient was treated for an acute COPD exacerbation and pneumonia. She completed treatment during her hospitalization here. She is followed by pulmonary service. She'll follow-up with him in 1 week. Patient also had evidence of oral candidiasis which is improving with the nystatin swish and swallow. She will continue this at home. During this hospitalization she did complain of dizziness and was found to be hypotensive. Orthostatic blood pressures were negative. Aldactone was discontinued. Blood pressures did show improvement. She still has some mild dizziness but again it has improved with IV fluid hydration. Patient's symptoms have improved she's been cleared by pulmonary service and she is medically stable for discharge. She completed her steroids and antibiotics during this hospitalization. And her breathing has improved greatly. She is requesting trazodone to help her sleep. She'll receive 10 pills. And she'll be following up with her PCP in 1 week. Patient is medical stable for discharge I performed an examination of the patient and discussed their management with the physician Music Therapist. I have reviewed the Physician Music Therapist's notes and agree with the documented findings and plan of care Patient Condition at Discharge: Stable Plan - Discharge Summary Discharge Rx Participant: Yes New Discharge Prescriptions: New Nicotine 14Mg/24Hr Patch [Habitrol] 1 patch TRANSDERM DAILY #30 patch Nystatin 100,000 Unit/ml Susp [Mycostatin Oral Susp] 500,000 unit PO 5XD # 150 ml Continue Topiramate 100 mg PO BID Omeprazole 20 mg PO DAILY Gabapentin 800 mg PO QID HYDROcodone/APAP 7.5-325MG [Alto 7.5-325] 1 tab PO QID PRN PRN Reason: Pain Baclofen [Lioresal] 20 mg PO HS buPROPion XL [Wellbutrin XL] 150 mg PO TID Sertraline [Zoloft] 50 mg PO DAILY Discontinued Spironolactone 50 mg PO DAILY Discharge Medication List Gabapentin 800 mg PO QID 05/01/14 [History] Omeprazole 20 mg PO DAILY 05/01/14 [History] Topiramate 100 mg PO BID 05/01/14 [History] HYDROcodone/APAP 7.5-325MG [Alto 7.5-325] 1 tab PO QID PRN 03/11/16 [History] Baclofen [Lioresal] 20 mg PO HS 07/02/17 [History] Sertraline [Zoloft] 50 mg PO DAILY 07/02/17 [History] buPROPion XL [Wellbutrin XL] 150 mg PO TID 07/02/17 [History] Nicotine 14Mg/24Hr Patch [Habitrol] 1 patch TRANSDERM DAILY #30 patch 07/10/17 [ Rx] Nystatin 100,000 Unit/ml Susp [Mycostatin Oral Susp] 500,000 unit PO 5XD #150 ml 07/10/17 [Rx] Follow up Appointment(s)/Referral(s): Katja Jefferson DO [Primary Care Provider] - 1 Week Reji Velazquez MD [STAFF PHYSICIAN] - 1 Week Activity/Diet/Wound Care/Special Instructions: Diet: Regular Activity: as tolerated Discharge Disposition: HOME SELF-CARE
== END 2017-07-10 15:34 | disposition home or self-care (01) | DRG 177 ==
LOC: EC 15:00 → 5MS5E 20:21 → 6PED 07-09 12:15
PROVIDERS: ADMIT Internal Medicine; ATTEND Internal Medicine
DX: J15.6 Pneumonia due to other Gram-negative bacteria (principal); J96.01 Acute respiratory failure with hypoxia; B37.0 Candidal stomatitis; E87.0 Hyperosmolality and hypernatremia; E44.0 Moderate protein-calorie malnutrition; J44.0 Chronic obstructive pulmonary disease with (acute) lower respiratory infection; J44.1 Chronic obstructive pulmonary disease with (acute) exacerbation; I95.9 Hypotension, unspecified; E86.9 Volume depletion, unspecified; F17.200 Nicotine dependence, unspecified, uncomplicated; F32.9 Major depressive disorder, single episode, unspecified; F41.9 Anxiety disorder, unspecified; G89.29 Other chronic pain; I10 Essential (primary) hypertension; K21.9 Gastro-esophageal reflux disease without esophagitis; K58.0 Irritable bowel syndrome with diarrhea; R04.0 Epistaxis; T38.0X5A Adverse effect of glucocorticoids and synthetic analogues, initial encounter; M25.519 Pain in unspecified shoulder; M54.2 Cervicalgia; M54.9 Dorsalgia, unspecified; K59.00 Constipation, unspecified; R19.7 Diarrhea, unspecified; R07.9 Chest pain, unspecified; R07.81 Pleurodynia; R23.2 Flushing; T36.95XA Adverse effect of unspecified systemic antibiotic, initial encounter; Z79.899 Other long term (current) drug therapy; Z88.1 Allergy status to other antibiotic agents; Y92.239 Unspecified place in hospital as the place of occurrence of the external cause
CPT/HCPCS: 36415; 71046; 71275; 80048; 80053; 81001; 84132; 84484; 85025; 85379; 87040; 87070; 87205; 87324; 87502; 93005; 94640; 94760; 96361; 96365; 99285

== ENCOUNTER 2018-01-21 13:09 | Emergency (ER) | payer MEDICARE, OTHER ==
--- NOTE | 2018-01-21 13:52 | ED ---
Fall HPI - General Chief Complaint: Fall Stated Complaint: fall/rib & shoulder pain Time Seen by Provider: 01/21/18 13:24 Source: patient, RN notes reviewed Mode of arrival: ambulatory Limitations: no limitations - History of Present Illness Initial Comments: This a 57-year-old female presents emergency Department chief complaint slip and fall. Patient states that she went to stand on a chair to reach for something and states that she slipped off falling. Patient complains of neck discomfort, right shoulder pain, left rib pain. She states that she somehow hit both of her sides. She denies any loss conscious. She states that she does not take any blood thinners. Patient states that she's had prior right shoulder surgery and has multiple prior injuries states that she has limited range of motion at this time. She denies any pelvic pain, hip pain. Patient states that she does have a headache which has been unchanged since injury. She states his happened approximately 3 PM yesterday. - Related Data Home Medications Medication Instructions Recorded Confirmed Gabapentin 800 mg PO QID 05/01/14 01/21/18 Omeprazole 20 mg PO DAILY 05/01/14 01/21/18 Topiramate 100 mg PO BID 05/01/14 01/21/18 HYDROcodone/APAP 7.5-325MG [[place]andy 1 tab PO QID PRN 03/11/16 01/21/18 7.5-325] Baclofen [Lioresal] 20 mg PO HS 07/02/17 01/21/18 Sertraline [Zoloft] 50 mg PO DAILY 07/02/17 01/21/18 buPROPion XL [Wellbutrin XL] 150 mg PO TID 07/02/17 01/21/18 Spironolactone 50 mg PO DAILY 01/21/18 01/21/18 Allergies Allergy/AdvReac Type Severity Reaction Status Date / Time metronidazole [From Flagyl] Allergy Itching, Verified 01/21/18 14:09 BURNING OF SKIN Review of Systems ROS Statement: Those systems with pertinent positive or pertinent negative responses have been documented in the HPI. ROS Other: All systems not noted in ROS Statement are negative. Past Medical History Past Medical History: GERD/Reflux, Hypertension, Pneumonia Additional Past Medical History / Comment(s): COPD, hypertension, leukoplakia of the vocal cords, chronic shoulder back and neck pain, acid reflux, depression , smoker History of Any Multi-Drug Resistant Organisms: None Reported Past Surgical History: Hernia Repair, Orthopedic Surgery, Tonsillectomy Additional Past Surgical History / Comment(s): arthroscopic shoulder, vocal cord scraping, dariana fundoplasty, neck surg., recent EGD, colonoscopy, cholesycystectomy Past Anesthesia/Blood Transfusion Reactions: No Reported Reaction Past Psychological History: Anxiety, Depression Smoking Status: Current every day smoker Past Alcohol Use History: None Reported Past Drug Use History: None Reported - Past Family History Mother History Unknown: Yes Family Medical History: Cancer Father Family Medical History: Unable to Obtain General Exam Limitations: no limitations General appearance: alert, in no apparent distress Head exam: Present: atraumatic, normocephalic, normal inspection ENT exam: Present: normal exam, normal oropharynx, mucous membranes moist Neck exam: Present: normal inspection, tenderness. Absent: meningismus, full ROM (Patient in c-collar), lymphadenopathy Respiratory exam: Present: normal lung sounds bilaterally, chest wall tenderness (Moderate left anterior lateral). Absent: respiratory distress, wheezes, rales, rhonchi, stridor, decreased breath sounds, prolonged expiratory Cardiovascular Exam: Present: regular rate, normal rhythm, normal heart sounds. Absent: systolic murmur, diastolic murmur, rubs, gallop, clicks GI/Abdominal exam: Present: soft, normal bowel sounds. Absent: distended, tenderness, guarding, rebound, rigid Extremities exam: Present: other (Tenderness diffusely the right shoulder mild swelling no ecchymosis limited range of motion, neurovascular intact upper and lower extremities) Neurological exam: Present: alert, oriented X3, CN II-XII intact, reflexes normal. Absent: motor sensory deficit Skin exam: Present: warm, dry, intact, normal color. Absent: rash Course Vital Signs 01/21/18 13:16 Temperature 98.2 F Pulse Rate 85 Respiratory 20 Rate Blood Pressure 117/85 O2 Sat by Pulse 97 Oximetry Medical Decision Making - Medical Decision Making 57-year-old female presented to complaint of a fall. Patient had active neck, shoulder and rib pain. X-rays and CTs were obtained there is no acute intracranial hemorrhage, no acute cervical fracture. Patient is noted to have anterior lateral eighth rib fracture on the left. X-rays of the right shoulder were obtained no acute fracture though she does have underlying chronic rotator cuff injury. Patient will follow-up with orthopedics for her shoulder she'll be given incentive spirometry for her rib fracture and she'll continue her pain medication as directed. 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 Is patient prescribed a controlled substance at d/c from ED?: No Referrals: Katja Jefferson DO [Primary Care Provider] - 1-2 days Time of Disposition: 16:15
--- NOTE | 2018-01-21 14:36 | CT ---
EXAMINATION TYPE: CT brain thais denton DATE OF EXAM: 01/21/2018 COMPARISON: None HISTORY: pain CT DLP: 1236 mGycm Automated exposure control for dose reduction was used. TECHNIQUE: CT scan of the head and cervical spine are performed without contrast. FINDINGS: There is no acute intracranial hemorrhage, mass effect, or midline shift identified. The ventricles and sulci are within normal limits in size. The globes are intact and the visualized sin uses are clear. There is pneumatization of the petrous ridges. Successful cervical spine in particular spinal canal limited due to artifact and noncontrast techniqu e. Assessment for disc herniation or canal stenosis nondiagnostic. Extensive postsurgical change. [place] s the normal cervical lordosis. Degenerative disc disease at C2-C3. Prevertebral soft tissue appears within normal limits. The C1-C2 articulation is unremarkable. IMPRESSION: 1. There is no acute fracture or dislocation evident in the cervical spine. 2. No acute intracranial hemorrhage, mass effect, or midline shift is seen. 3. Limited assessment spinal canal due to artifact.
[2018-01-21] MEDS ORDERED: HYDROcodone/APAP 5-325MG 1 EACH TAB PO STA (15:05)
--- NOTE | 2018-01-21 15:52 | XR ---
EXAMINATION TYPE: XR shoulder limited RT DATE OF EXAM: 01/21/2018 CLINICAL HISTORY: Right shoulder pain after fall injury. TECHNIQUE: Three views of the right shoulder are obtained. COMPARISON: None. FINDINGS: Demineralization is present. There is no acute fracture/dislocation evident in the right sh oulder. There is mild to moderate joint space loss right acromioclavicular joint. There is moderate s purring medially right humeral head at glenohumeral joint. Subchondral cystic change superolateral hu merus is present. There is high riding humeral head suggesting chronic rotator cuff tear. The visuali zed ribs are intact and unremarkable. IMPRESSION: There is no acute fracture or dislocation in the right shoulder. Other findings as noted above.
--- NOTE | 2018-01-21 15:57 | XR ---
EXAMINATION TYPE: XR ribs LT w pa chest xray DATE OF EXAM: 01/21/2018 CLINICAL HISTORY: Chest and left-sided rib pain after fall injury yesterday. TECHNIQUE: Single frontal view of the chest is obtained. A frontal and oblique images of the left-nitesh ed ribs are acquired. COMPARISON: Chest x-ray July 05, 2017. FINDINGS: There is chronic emphysematous change without suspicious focal air space opacity, pleural effusion, or pneumothorax seen. The cardiac silhouette size is within normal limits without reflect chronic change in aortic knob. The osseous structures remain demineralized. There is partial visual ization of fusion plate in the cervical spine. Slight dextroconvex scoliosis centered in the mid thor acic spine is redemonstrated. Dedicated images of the left-sided ribs show acute minimally displaced fracture involving anterolater al left eighth rib. Overlying soft tissue is unremarkable. IMPRESSION: 1. Chronic changes without acute pulmonary process. 2. Acute minimally displaced fracture involving anterolateral left eighth rib.
[2018-01-21] MEDS ORDERED: LISINOPRIL 10 MG TAB PO STA (16:02)
[2018-01-21 16:23] VITALS: BP 107/70; PULSE 76; RESP 16; TEMP 97.8
== END 2018-01-21 16:35 | disposition home or self-care (01) ==
LOC: EC 13:09
DX: S22.32XA Fracture of one rib, left side, initial encounter for closed fracture (principal); M19.111 Post-traumatic osteoarthritis, right shoulder; S46.001S Unspecified injury of muscle(s) and tendon(s) of the rotator cuff of right shoulder, sequela; M54.2 Cervicalgia; R51 Headache; K21.9 Gastro-esophageal reflux disease without esophagitis; I10 Essential (primary) hypertension; F32.9 Major depressive disorder, single episode, unspecified; F41.9 Anxiety disorder, unspecified; F17.200 Nicotine dependence, unspecified, uncomplicated; Z98.890 Other specified postprocedural states; Z79.899 Other long term (current) drug therapy; Z88.1 Allergy status to other antibiotic agents; W07.XXXA Fall from chair, initial encounter; Y92.009 Unspecified place in unspecified non-institutional (private) residence as the place of occurrence of the external cause
CPT/HCPCS: 70450; 72125; 99284

== ENCOUNTER 2018-05-07 13:39 | Emergency (ER) | payer MEDICARE, OTHER ==
--- NOTE | 2018-05-07 14:08 | ED ---
ENT HPI - General Chief complaint: ENT Stated complaint: nose bleed Time Seen by Provider: 05/07/18 13:50 Source: patient Mode of arrival: ambulatory Limitations: no limitations - History of Present Illness Initial comments: 57-year-old female past medical history of COPD presenting today for chief complaint of nosebleed 4 days. Patient states the past 4 days every few hours she has no splitting from the right nares. Patient states that last a few minutes, and begins as heavy bleeding eventually subsiding. Patient states a few days prior to onset she felt as though she had the beginning of a cold, with sinus pressure and some congestion. Patient denies any fever, chills. Patient states that yesterday she presented to her primary care provider's office where physician therapy administrative assistant Karen, patient had area cauterized with silver nitrate and anterior packing put in place. Patient was instructed to remove the packing 5 hours later, patient was not started on any prophylactic antibiotics. Patient states she had a packing placed around 4:30, removing it at 10 PM. Patient states that the bleeding returned today, she states she's been applying pressure. Upon arrival there is no active bleeding. Patient's vital signs within normal limits, blood pressure 130/84, heart rate 74 bpm. Patient appears well. Patient denies any recent fever, chills, shortness of breath, chest pain, back pain, abdominal pain, nausea or vomiting, numbness or tingling, dysuria or hematuria, constipation or diarrhea, headaches or visual changes, or any other complaints. Patient denies any bleeding diathesis or use of anticoagulants. - Related Data Home Medications Medication Instructions Recorded Confirmed Gabapentin 800 mg PO QID 05/01/14 01/21/18 Omeprazole 20 mg PO DAILY 05/01/14 01/21/18 Topiramate 100 mg PO BID 05/01/14 01/21/18 HYDROcodone/APAP 7.5-325MG [[place] 1 tab PO QID PRN 03/11/16 01/21/18 7.5-325] Baclofen [Lioresal] 20 mg PO HS 07/02/17 01/21/18 Sertraline [Zoloft] 50 mg PO DAILY 07/02/17 01/21/18 buPROPion XL [Wellbutrin XL] 150 mg PO TID 07/02/17 01/21/18 Spironolactone 50 mg PO DAILY 01/21/18 01/21/18 Previous Rx's Medication Instructions Recorded Ibuprofen [Motrin] 600 mg PO Q8HR PRN #30 tab 01/21/18 Oxymetazoline 0.05% Nasl [place] 2 spray EA NOSTRIL BID 3 Days #1 05/07/18 [Afrin 0.05% Nasal [place]] bottle Allergies Allergy/AdvReac Type Severity Reaction Status Date / Time metronidazole [From Flagyl] Allergy Itching, Verified 05/07/18 13:45 BURNING OF SKIN Review of Systems ROS Statement: Those systems with pertinent positive or pertinent negative responses have been documented in the HPI. ROS Other: All systems not noted in ROS Statement are negative. Past Medical History Past Medical History: GERD/Reflux, Hypertension, Pneumonia Additional Past Medical History / Comment(s): COPD, hypertension, leukoplakia of the vocal cords, chronic shoulder back and neck pain, acid reflux, depression , smoker History of Any Multi-Drug Resistant Organisms: None Reported Past Surgical History: Hernia Repair, Orthopedic Surgery, Tonsillectomy Additional Past Surgical History / Comment(s): arthroscopic shoulder, vocal cord scraping, dariana fundoplasty, neck surg., recent EGD, colonoscopy, cholesycystectomy Past Anesthesia/Blood Transfusion Reactions: No Reported Reaction Past Psychological History: Anxiety, Depression Smoking Status: Current every day smoker Past Alcohol Use History: None Reported Past Drug Use History: None Reported - Past Family History Mother History Unknown: Yes Family Medical History: Cancer Father Family Medical History: Unable to Obtain General Exam - General Exam Comments Initial Comments: General: The patient is awake and alert, in no distress, and does not appear acutely ill. Eye: +3 mm pupils are equal, round and reactive to light, extra-ocular movements are intact. No nystagmus. There is normal conjunctiva bilaterally. No signs of icterus. Ears, nose, mouth and throat: There are moist mucous membranes and no oral lesions. Friable nasal mucosa, no areas of focal bleeding. No evidence of posterior epistaxis upon inspection of the oropharynx. No nasal deviation or evidence of external trauma. Neck: The neck is supple, there is no tenderness or JVD. Cardiovascular: There is a regular rate and rhythm. No murmur, rub or gallop is appreciated. Respiratory: Lungs are clear to auscultation, respirations are non-labored, breath sounds are equal. No wheezes, stridor, rales, or rhonchi. Musculoskeletal: Normal ROM, no tenderness. Strength 5/5. Sensation intact. Pulses equal bilaterally 2+. Neurological: A&O x 3. CN II-XII intact, There are no obvious motor or sensory deficits. Coordination appears grossly intact. Speech is normal. Skin: Skin is warm and dry and no rashes or lesions are noted. No evidence of bruising upon inspection of the skin. Psychiatric: Cooperative, appropriate mood & affect, normal judgment. Limitations: no limitations Course Vital Signs 05/07/18 13:43 Temperature 97.6 F Pulse Rate 77 Respiratory 18 Rate Blood Pressure 130/84 O2 Sat by Pulse 99 Oximetry Medical Decision Making - Medical Decision Making Upon arrival pt complained of light bleeding, pressure applied. On exam there was no evidence of anterior, nor posterior bleeding. Pt pattern of bleeding for only a few minutes a day multiple times more consistent with dry environment. Pt was found in room, dabbing nose with tissue-stating checking for blood. I discussed that this will worsen pt symptoms. I reviewed previous labs revealing no evidence of bleeding diathesis. At this time do feel patient is stable for discharge, with perception for Afrin to use for the next 3 days twice daily. In addition I recommended use of Vaseline in the nares as well as humidifier. Patient will be given ENT follow-up within the next week.Pt is agreeable with plan and discharge. Return parameters discussed at length with patient who verbalized understanding. Pt d/c in stable condition appearing well. Disposition Clinical Impression: Anterior epistaxis Disposition: HOME SELF-CARE Condition: Good Instructions: Nosebleed (ED) Additional Instructions: Please use medication as discussed. Please follow-up with family doctor in the next 1-2 days. Please follow-up with ENT in the next 2-3 days. Please return to emergency room if the symptoms increase or worsen or for any other concerns, as discussed. Please home humidifier and vaseline as discussed. Prescriptions: Oxymetazoline 0.05% Nasl [place] [Afrin 0.05% Nasal [place]] 2 spray EA NOSTRIL BID 3 Days #1 bottle Is patient prescribed a controlled substance at d/c from ED?: No Referrals: Katja Jefferson DO [Primary Care Provider] - 1-2 days Time of Disposition: 14:47
[2018-05-07 15:19] VITALS: BP 132/68; PULSE 66; RESP 16; TEMP 97.9
== END 2018-05-07 15:15 | disposition home or self-care (01) ==
LOC: EC 13:39
DX: R04.0 Epistaxis (principal); K21.9 Gastro-esophageal reflux disease without esophagitis; I10 Essential (primary) hypertension; F32.9 Major depressive disorder, single episode, unspecified; F41.9 Anxiety disorder, unspecified; F17.200 Nicotine dependence, unspecified, uncomplicated; Z79.899 Other long term (current) drug therapy; Z88.1 Allergy status to other antibiotic agents
CPT/HCPCS: 99283

== ENCOUNTER → 2018-10-02 | Outpatient (CLI) | payer MEDICARE, OTHER ==
--- NOTE | 2018-10-04 14:00 | MM ---
Reason for exam: screening (asymptomatic). Last mammogram was performed 1 year and 9 months ago. History: Patient is postmenopausal. Family history of breast cancer in maternal aunt at age 57. Physical Findings: A clinical breast exam by your physician is recommended on an annual basis and results should be correlated with mammographic findings. MG 3D Screening Mammo W/Cad Bilateral CC and MLO view(s) were taken. Prior study comparison: December 28, 2016, bilateral MG 3d screening mammo w/cad. August 25, 2015, right breast MG 3d work up w/cad RT. The breast tissue is extremely dense which could obscure a lesion on mammography. There are benign appearing developing spherical calcifications in the left breast. No significant changes when compared with prior studies. ASSESSMENT: Benign, BI-RAD 2 RECOMMENDATION: Routine screening mammogram of both breasts in 1 year.
== END | disposition home or self-care (01) ==
LOC: RADMAMWWP 14:44
PROVIDERS: ATTEND Family Medicine
DX: Z12.31 Encounter for screening mammogram for malignant neoplasm of breast (principal)
CPT/HCPCS: 77063; 77067

== ENCOUNTER → 2019-10-17 | Outpatient (CLI) | payer MEDICARE, OTHER ==
[2019-10-17 09:38] LABS: HGB 13.6 gm/dL (11.4-16.0); MCHC 30.8 g/dL (31.0-37.0); MCV 97.6 fL (80.0-100.0); Platelet Count 210 k/uL (150-450); RBC 4.51 m/uL (3.80-5.40); RDW 14.4 % (11.5-15.5)
[2019-10-17 10:46] LABS: Nucleated Red Blood Cells 0 /100 WBC (0-0)
[2019-10-17 10:47] LABS: Basophils # (M) 0.35 k/uL (0-0.2); Eosinophils # (M) 0.35 k/uL (0-0.7); Lymphocytes # (M) 1.61 k/uL (1.0-4.8); Metamyelocytes # (M) 0.07 k/uL (0); Metamyelocytes % 1 %; Monocytes # (M) 0.84 k/uL (0-1.0); Myelocytes # (M) 0.07 k/uL (0); Myelocytes % 1 %; Neutrophils # (M) 3.85 k/uL (1.3-7.7); Neutrophils % (M) 55 %; Total Cells Counted 200
== END | disposition home or self-care (01) ==
LOC: LABPAT 08:22
PROVIDERS: ATTEND Surgery
DX: Z01.818 Encounter for other preprocedural examination (principal); K43.0 Incisional hernia with obstruction, without gangrene
CPT/HCPCS: 36415; 85025; 86850; 86900; 86901

== ENCOUNTER 2019-10-22 07:28 | Inpatient (IN) | payer MEDICARE, OTHER ==
[2019-10-21 10:06] VITALS: BMI 17.4
[~2019-10-22 07:28] MED LIST: ACETAMINOPHEN TAB 500 MG TAB PO ONE; DEXAMETHASONE SOD PHOSPHATE 10 MG/ML 1 ML VIAL IV ONE; HEPARIN SODIUM,PORCINE 5,000 UNIT/ML 1 ML VIAL SQ ONE; MIDAZOLAM 2 MG/2 ML VIAL IV PRN; ONDANSETRON 4 MG/2 ML VIAL IVP ONE; SCOPOLAMINE 1.5MG/72HR PATCH TRANSDERM ONE
[2019-10-22] MEDS ORDERED: ONDANSETRON 4 MG/2 ML VIAL ONE ×2 (07:54→12:06)
[2019-10-22] MEDS ORDERED: HEPARIN SODIUM,PORCINE 5,000 UNIT/ML 1 ML VIAL ONE (07:54)
[2019-10-22] MEDS ORDERED: ACETAMINOPHEN TAB 500 MG TAB ONE (07:55)
[2019-10-22] MEDS: LACTATED RINGERS 1,000 ML IV SCH (08:00)
--- NOTE | 2019-10-22 08:46 | P.ANPRN ---
Procedure Note - Anesthesia - Nerve Block Performed Bilateral Rectus Abdominis Single Time Out Performed: Yes Date of Procedure: 10/22/19 Procedure Start Time: :18 Procedure Stop Time: :28 Location of Patient: PreOp Indication: Acute Post-Operative Pain, Requested by Surgeon Sedation Type: Sedate with meaningful contact maintained Preparation: Sterile Prep Position: Supine Catheter: None Needle Types: Pajunk Needle Gauge: 21 Ultrasound used to visualize needle placement: Yes Ultrasound used to observe medication spread: Yes Injectate: Other (see comment) (ropivacaine 0.5%- 10cc + PFNS 5cc + decadron 2mg-- per side) Blood Aspirated: No Pain Paresthesia on Injection Noted: No Resistance on Injection: Normal Image Stored and Saved: Yes Events: Uneventful and Well Tolerated
--- NOTE | 2019-10-22 08:50 | P.GSHP ---
History of Present Illness H&P Date: 10/22/19 Chief Complaint: Incisional hernia This a 59-year-old female who presents today for laparoscopic robotic-assisted repair of incisional hernia. Patient developed an incisional hernia located above the umbilicus in the midline. Past Medical History Past Medical History: COPD, GERD/Reflux, Hypertension, Pneumonia Additional Past Medical History / Comment(s): Hx of HTN (no current meds) ,Hx of leukoplakia of the vocal cords, chronic shoulder , back and neck pain, diverticulitis, colon polyps, states having abd pain and nausea ., limited ROM both shoulders. History of Any Multi-Drug Resistant Organisms: MRSA Date of last positivie culture/infection: 05/03/19 MDRO Source:: Face Past Surgical History: Cholecystectomy, Orthopedic Surgery, Tonsillectomy Additional Past Surgical History / Comment(s): arthroscopic shoulder, vocal cord scraping, dariana fundoplasty, neck surg., EGD, colonoscopy. Past Anesthesia/Blood Transfusion Reactions: No Reported Reaction Past Psychological History: Anxiety, Depression Additional Psychological History / Comment(s): hx suicidal thoughts- denies current thoughts. Smoking Status: Current every day smoker Past Alcohol Use History: None Reported Additional Past Alcohol Use History / Comment(s): started smoking age 20, smokes 1/2 ppd. Past Drug Use History: None Reported - Past Family History Mother History Unknown: Yes Family Medical History: Cancer Father Family Medical History: Myocardial Infarction ([place]) Medications and Allergies Home Medications Medication Instructions Recorded Confirmed Type Gabapentin 800 mg PO QID 05/01/14 10/22/19 History Omeprazole 20 mg PO DAILY 05/01/14 10/22/19 History Topiramate 100 mg PO BID 05/01/14 10/22/19 History HYDROcodone/APAP 7.5-325MG [[place] 1 tab PO QID PRN 03/11/16 10/22/19 History 7.5-325] Baclofen [Lioresal] 20 mg PO HS 07/02/17 10/22/19 History Sertraline [Zoloft] 50 mg PO DAILY 07/02/17 10/22/19 History buPROPion XL [Wellbutrin XL] 150 mg PO TID 07/02/17 10/22/19 History Ibuprofen [Motrin] 600 mg PO Q8HR PRN #30 tab 01/21/18 10/22/19 Rx Spironolactone 50 mg PO DAILY 01/21/18 10/22/19 History Multivit with Calcium,Iron,Min 1 each PO DAILY 10/21/19 10/22/19 History [Women's Multivitamin] Naproxen Sodium [Aleve] 440 mg PO DAILY PRN 10/21/19 10/22/19 History Vitamin C/Biotin [Hair, Skin and 1 tab PO DAILY 10/21/19 10/22/19 History Nails] Allergies Allergy/AdvReac Type Severity Reaction Status Date / Time metronidazole [From Flagyl] Allergy Itching, Verified 10/22/19 07:50 BURNING OF SKIN Surgical - Exam Vital Signs Temp Pulse Resp BP Pulse Ox 98.7 F 79 16 103/71 98 10/22/19 08:00 10/22/19 08:00 10/22/19 08:00 10/22/19 08:00 10/22/19 08:00 - General well developed, well nourished, no distress - Eyes PERRL - ENT normal pinna - Neck no masses - Respiratory normal expansion - Cardiovascular Rhythm: regular - Abdomen Abdomen: soft, non tender Hernia: incisional (5 cm incisional hernia) Assessment and Plan Assessment: Incisional hernia. We'll perform laparoscopic robotic-assisted repair.
[2019-10-22] MEDS ORDERED: SUCCINYLCHOLINE CHLORIDE 100 MG/5 ML SYR IV ONE (09:01)
[2019-10-22] MEDS ORDERED: ROPIVACAINE 5 MG/ML 30 ML VIAL ONE (09:01)
[2019-10-22] MEDS ORDERED: DEXAMETHASONE SOD PHOSPHATE 4 MG/ML 1 ML VIAL ONE (09:01)
[2019-10-22] MEDS ORDERED: PROPOFOL 10 MG/ML 20 ML VIAL IV ONE (09:01)
[2019-10-22] MEDS ORDERED: ROCURONIUM BROMIDE 10 MG/ML 5 ML VIAL IV ONE (09:01)
[2019-10-22] MEDS ORDERED: KETAMINE 10 MG/ML 20 ML VIAL ONE (09:01)
[2019-10-22] MEDS ORDERED: GLYCOPYRROLATE 0.2 MG/ML 2 ML VIAL ONE (09:01)
[2019-10-22] MEDS ORDERED: ePHEDrine SULFATE/0.9% NACL/PF 50 MG/5 ML SYRINGE IV ONE (09:01)
[2019-10-22] MEDS ORDERED: KETOROLAC 30 MG/ML 1 ML VIAL ONE (09:01)
[2019-10-22] MEDS ORDERED: MIDAZOLAM 2 MG/2 ML VIAL ONE (09:01)
[2019-10-22] MEDS ORDERED: NEOSTIGMINE 1 MG/ML 10 ML VIAL ONE (09:01)
[2019-10-22] MEDS ORDERED: LIDOCAINE 1% INJ 10MG/ML (20 ML MDV) ONE (09:01)
[2019-10-22] MEDS ORDERED: fentaNYL (PF) 50 MCG/ML 2 ML AMP ONE (09:01)
--- NOTE | 2019-10-22 10:03 | P.OP ---
Date of Procedure: 10/22/19 Preoperative Diagnosis: Incisional hernia Postoperative Diagnosis: Incisional hernia Procedure(s) Performed: Laparoscopic robotic-assisted repair of incisional hernia Anesthesia: KALYANI Surgeon: Latrell Alexis Estimated Blood Loss (ml): 10 Pathology: none sent Condition: stable Disposition: PACU Description of Procedure: The patient was placed on the operating table in the supine position. He received general anesthesia. His abdomen was prepped and draped usual fashion. Using a 5 mm optical trocar under direct visualization the peritoneal cavity was entered in the left upper quadrant. The abdomen was then insufflated. The laparoscope was placed back into the perineal cavity. Next a 8 mm robotic trocar was placed in the left lower quadrant and a 12 mm robotic trocar was placed in the left lateral position. The original 5 mm trocar was exchanged for a 8 mm robotic trocar. The patient's placed in the left side up position. And the patient was docked to the robot. The incisional hernia was visualized. Using hook cautery the peritoneum over the incisional hernia was excised. The fascial opening was repaired using 0V LOC suture. Next a piece of 11 cm round ventral light ST mesh was placed into the. Cavity and secured with 2 OV lock suture. The patient was undocked the robot. The needles were retrieved. The fascia of the 12 mm trocar site was closed with 0 Ethibond suture. Skin was closed interrupted 3-0 Monocryl suture. Dermabond dressings was applied. Patient tolerated procedure well and was sent to recovery room stable condition.
[2019-10-22] MEDS: HYDROmorphone 0.5 MG/0.5 ML SYRINGE IVP PRN ×5 (10:26→16:45)
[2019-10-22] MEDS ORDERED: MIDAZOLAM 2 MG/2 ML VIAL IVP ONE (11:04)
[2019-10-22] MEDS ORDERED: fentaNYL (PF) 50 MCG/ML 2 ML AMP IVP ONE (11:04)
[2019-10-22] MEDS ORDERED: ONDANSETRON 4 MG/2 ML VIAL IVP ONE (12:09)
[2019-10-22] MEDS ORDERED: HYDROcodone/APAP 5-325MG 1 EACH TAB ONE (12:26)
[2019-10-22] MEDS ORDERED: HYDROcodone/APAP 5-325MG 1 EACH TAB PO ONE (12:27)
[2019-10-22] MEDS ORDERED: LACTATED RINGERS 1,000 ML IV ONE (13:37)
[2019-10-22] MEDS ORDERED: ACETAMINOPHEN TAB 325 MG TAB PO PRN (13:37)
[2019-10-22] MEDS ORDERED: HYDROcodone/APAP 5-325MG 1 EACH TAB PO PRN (13:37)
[2019-10-22] MEDS ORDERED: ONDANSETRON 4 MG/2 ML VIAL IVP PRN (13:37)
[2019-10-22] MEDS ORDERED: NALOXONE 0.4 MG/ML 1 ML VIAL IV PRN (13:37)
[2019-10-22] MEDS ORDERED: HYDROmorphone 0.5 MG/0.5 ML SYRINGE IVP ONE (13:52)
[2019-10-22] MEDS: KETOROLAC 30 MG/ML 1 ML VIAL IVP SCH ×2 (15:00→20:58)
[2019-10-22] MEDS ORDERED: SODIUM CHLORIDE 0.9% 2,000 ML IV ONE (20:48)
[2019-10-22] MEDS ORDERED: DEXAMETHASONE SOD PHOSPHATE 10 MG/ML 1 ML VIAL IV PRN (20:50)
[2019-10-22] MEDS: DOCUSATE 100 MG CAP PO SCH (20:57)
[2019-10-22] MEDS: ACETAMINOPHEN TAB 325 MG TAB PO SCH ×2 (20:58→23:35)
[2019-10-22] MEDS: ONDANSETRON 4 MG/2 ML VIAL IVP SCH (20:58)
[2019-10-23] MEDS: ONDANSETRON 4 MG/2 ML VIAL IVP SCH ×4 (00:20→17:07)
[2019-10-23] MEDS: KETOROLAC 30 MG/ML 1 ML VIAL IVP SCH ×4 (02:02→20:03)
[2019-10-23] MEDS: LACTATED RINGERS 1,000 ML IV SCH (07:09)
[2019-10-23] MEDS: ACETAMINOPHEN TAB 325 MG TAB PO SCH ×3 (07:09→16:02)
[2019-10-23] MEDS: DOCUSATE 100 MG CAP PO SCH ×2 (08:40→21:01)
[2019-10-23] MEDS: ENOXAPARIN 40 MG/0.4 ML SYRINGE SQ SCH (08:46)
[2019-10-23] MEDS ORDERED: METOCLOPRAMIDE 5 MG/ML 2 ML VIAL IVP PRN (10:33)
[2019-10-23] MEDS: GABAPENTIN 400 MG CAP PO SCH ×3 (11:58→21:01)
--- NOTE | 2019-10-23 16:26 | P.PN ---
Progress Note - Text Progress Note Date: 10/23/19 patient has complaints of nausea. She is also had complaints abdominal pain. On exam her vital signs are stable. Incision sites are clean dry and intact. She has some tenderness at the hernia site. Postoperative nausea and incisional pain. Patient will continue to receive supportive care. We anticipate discharge home tomorrow.
[2019-10-23] MEDS: buPROPion XL 150 MG TAB.ER.24H PO SCH ×2 (17:07→21:01)
[2019-10-23] MEDS: HYDROmorphone 0.5 MG/0.5 ML SYRINGE IVP PRN (20:04)
[2019-10-23 20:29] VITALS: RESP 18
[2019-10-23] MEDS ORDERED: BACLOFEN 10 MG TAB PO SCH (21:00)
[2019-10-23] MEDS: TOPIRAMATE 100 MG TAB PO SCH (21:01)
[2019-10-24] MEDS: ONDANSETRON 4 MG/2 ML VIAL IVP SCH ×2 (01:04→06:12)
[2019-10-24] MEDS: KETOROLAC 30 MG/ML 1 ML VIAL IVP SCH ×2 (01:04→10:00)
[2019-10-24] MEDS: ACETAMINOPHEN TAB 325 MG TAB PO SCH ×2 (01:05→06:12)
[2019-10-24 05:57] VITALS: BP 133/63; PULSE 82; TEMP 98.5
[2019-10-24] MEDS: LACTATED RINGERS 1,000 ML IV SCH (06:15)
[2019-10-24] MEDS ORDERED: PANTOPRAZOLE 40 MG TABLET PO SCH (07:30)
--- NOTE | 2019-10-24 08:49 | P.CONS ---
History of Present Illness - Reason for Consult Consult date: 10/23/19 medical management Requesting physician: Latrell Alexis - History of Present Illness Kat Pickard is a 59 yo F with past medical history of hypertension, GERD, major depression who is admitted for incisional hernia repair. She is postop day #[address] Alexis, vitals are stable she denies fever chills or drainage around the incisional site. She is having some postoperative abdominal pain and nausea. She has not had any vomiting today. Review of Systems All systems: negative Constitutional: Denies chills, Denies fever Eyes: denies blurred vision, denies pain Ears, nose, mouth and throat: Denies headache, Denies sore throat Cardiovascular: Denies chest pain, Denies shortness of breath Respiratory: Denies cough Gastrointestinal: Reports as per HPI, Reports abdominal pain, Reports nausea, Denies diarrhea, Denies vomiting Genitourinary: Denies dysuria, Denies hematuria Musculoskeletal: Denies myalgias Integumentary: Denies pruritus, Denies rash Neurological: Denies numbness, Denies weakness Psychiatric: Denies anxiety, Denies depression Endocrine: Denies fatigue, Denies weight change Past Medical History Past Medical History: COPD, GERD/Reflux, Hypertension, Pneumonia Additional Past Medical History / Comment(s): Hx of HTN (no current meds) ,Hx of leukoplakia of the vocal cords, chronic shoulder , back and neck pain, diverticulitis, colon polyps, states having abd pain and nausea ., limited ROM both shoulders. History of Any Multi-Drug Resistant Organisms: MRSA Year Discovered:: 05/03/19 MDRO Source:: Face Past Surgical History: Cholecystectomy, Orthopedic Surgery, Tonsillectomy Additional Past Surgical History / Comment(s): arthroscopic shoulder, vocal cord scraping, dariana fundoplasty, neck surg., EGD, colonoscopy. Past Anesthesia/Blood Transfusion Reactions: No Reported Reaction Past Psychological History: Anxiety, Depression Additional Psychological History / Comment(s): hx suicidal thoughts- denies current thoughts. Smoking Status: Current every day smoker Past Alcohol Use History: None Reported Additional Past Alcohol Use History / Comment(s): started smoking age 20, smokes 1/2 ppd. Past Drug Use History: None Reported - Past Family History Mother History Unknown: Yes Family Medical History: Cancer Father Family Medical History: Myocardial Infarction ([place]) Medications and Allergies Home Medications Medication Instructions Recorded Confirmed Type Gabapentin 800 mg PO QID 05/01/14 10/22/19 History Omeprazole 20 mg PO DAILY 05/01/14 10/22/19 History Topiramate 100 mg PO BID 05/01/14 10/22/19 History HYDROcodone/APAP 7.5-325MG [[place] 1 tab PO QID PRN 03/11/16 10/22/19 History 7.5-325] Baclofen [Lioresal] 20 mg PO HS 07/02/17 10/22/19 History Sertraline [Zoloft] 50 mg PO DAILY 07/02/17 10/22/19 History buPROPion XL [Wellbutrin XL] 150 mg PO TID 07/02/17 10/22/19 History Ibuprofen [Motrin] 600 mg PO Q8HR PRN #30 tab 01/21/18 10/22/19 Rx Spironolactone 50 mg PO DAILY 01/21/18 10/22/19 History Multivit with Calcium,Iron,Min 1 each PO DAILY 10/21/19 10/22/19 History [Women's Multivitamin] Naproxen Sodium [Aleve] 440 mg PO DAILY PRN 10/21/19 10/22/19 History Vitamin C/Biotin [Hair, Skin and 1 tab PO DAILY 10/21/19 10/22/19 History Nails] Docusate [Colace] 100 mg PO BID #20 capsule 10/22/19 Rx HYDROcodone/APAP 5-325MG [[place] 1 tab PO Q6HR PRN #10 tab 10/22/19 Rx 5-325] Allergies Allergy/AdvReac Type Severity Reaction Status Date / Time metronidazole [From Flagyl] Allergy Itching, Verified 10/22/19 07:50 BURNING OF SKIN Physical Exam Vitals: Vital Signs Temp Pulse Pulse Resp BP Pulse Ox 10/24/19 05:00 98.5 F 82 18 133/63 92 L 10/23/19 20:28 98.8 F 74 18 113/75 98 10/23/19 15:33 66 76 14 10/23/19 12:39 98.1 F 66 14 110/72 99 Intake and Output 06/25/20 06/26/20 06/26/20 22:59 06:59 14:59 Intake Total 180 160 Balance 180 160 Intake: IV 80 160 ns @20 80 160 Oral 100 Other: Voiding Method Toilet Toilet # Voids 3 Gen.: Well-developed, well-nourished white female in no acute distress HEENT: Normocephalic, atraumatic, mucous membranes moist Neck: Supple, no thyromegaly, no JVD CV: Regular rate and rhythm, no murmurs, pulses 2+ Lungs: Normal respiratory effort, clear throughout Abdomen: Soft, mild generalized tenderness, bowel sounds present Extremities: No cyanosis, clubbing, or edema Neuro: Alert and oriented 3, no focal deficits Skin: Warm and dry Assessment and Plan (1) Incisional hernia Current Visit: Yes Status: Acute Code(s): K43.2 - INCISIONAL HERNIA WITHOUT OBSTRUCTION OR GANGRENE SNOMED Code(s): 654839691 (2) Major depression Current Visit: Yes Status: Acute Code(s): F32.9 - MAJOR DEPRESSIVE DISORDER, SINGLE EPISODE, UNSPECIFIED SNOMED Code(s): 921652589 (3) Hypertension Current Visit: Yes Status: Acute Code(s): I10 - ESSENTIAL (PRIMARY) HYPERTENSION SNOMED Code(s): 98622931 Plan: 1. Incisional hernia. Status post laparoscopic repair. Management per surgery, we'll add Reglan for nausea 2. Major depressive disorder. Resume Wellbutrin and Zoloft 3. Hypertension. Resume spironolactone 4. GERD. Protonix
[2019-10-24] MEDS ORDERED: SPIRONOLACTONE 25 MG TAB PO SCH (09:00)
--- NOTE | 2019-10-24 09:13 | P.PN ---
Subjective Progress Note Date: 10/24/19 Principal diagnosis: incisional hernia Pt is feeling well today, minimal abdominal pain and some nausea that is relieved with zofran. She is tolerating her diet. Vitals are stable. Objective - Vital Signs Vital signs: Vital Signs Temp 98.5 F 10/24/19 05:00 Pulse 82 10/24/19 05:00 Resp 18 10/24/19 05:00 BP 133/63 10/24/19 05:00 Pulse Ox 92 L 10/24/19 05:00 Intake & Output 10/23/19 10/24/19 10/24/19 18:59 06:59 18:59 Intake Total 240 340 Balance 240 340 Intake: IV 240 ns @20 240 Oral 240 100 Other: Voiding Method Toilet Toilet # Voids 3 - Exam Gen: well developed, well nourished, NAD CV: RRR, no murmur Lungs: normal effort, clear throughout Neuro: alert and oriented x3, no focal deficits Assessment and Plan (1) Incisional hernia Current Visit: Yes Status: Acute Code(s): K43.2 - INCISIONAL HERNIA WITHOUT OBSTRUCTION OR GANGRENE SNOMED Code(s): 111039849 (2) Major depression Current Visit: Yes Status: Acute Code(s): F32.9 - MAJOR DEPRESSIVE DISORDER, SINGLE EPISODE, UNSPECIFIED SNOMED Code(s): 035934980 (3) Hypertension Current Visit: Yes Status: Acute Code(s): I10 - ESSENTIAL (PRIMARY) HYPERTENSION SNOMED Code(s): 25709105 Plan: 1. Incisional hernia. She is medically stable for discharge. Pain control and zofran prn 2. Major depressive disorder. Continue Wellbutrin and Zoloft 3. Hypertension. Resume spironolactone 4. GERD. Protonix
[2019-10-24] MEDS: buPROPion XL 150 MG TAB.ER.24H PO SCH (10:01)
[2019-10-24] MEDS: DOCUSATE 100 MG CAP PO SCH (10:01)
[2019-10-24] MEDS: GABAPENTIN 400 MG CAP PO SCH (10:01)
[2019-10-24] MEDS: ENOXAPARIN 40 MG/0.4 ML SYRINGE SQ SCH (10:01)
[2019-10-24] MEDS: TOPIRAMATE 100 MG TAB PO SCH (10:02)
--- NOTE | 2019-10-24 10:06 | P.DS ---
Providers Date of admission: 10/24/19 08:55 Expected date of discharge: 10/24/19 Attending physician: Latrell Alexis Primary care physician: Katja Li [facility] Course: This a 59-year-old female who was admitted to the hospital after laparoscopic biopsies pair of incarcerated hernia due to postoperative pain. Patient did well postoperatively. Please see hospital chart for details. Procedures: Laparoscopic repair of incarcerated ventral hernia Patient Condition at Discharge: Good Plan - Discharge Summary Discharge Rx Participant: No New Discharge Prescriptions: New Docusate [Colace] 100 mg PO BID #20 capsule HYDROcodone/APAP 5-325MG [[place] 5-325] 1 tab PO Q6HR PRN #10 tab PRN Reason: Pain No Action Topiramate 100 mg PO BID Omeprazole 20 mg PO DAILY Gabapentin 800 mg PO QID HYDROcodone/APAP 7.5-325MG [[place] 7.5-325] 1 tab PO QID PRN PRN Reason: Pain Baclofen [Lioresal] 20 mg PO HS buPROPion XL [Wellbutrin XL] 150 mg PO TID Sertraline [Zoloft] 50 mg PO DAILY Spironolactone 50 mg PO DAILY Ibuprofen [Motrin] 600 mg PO Q8HR PRN #30 tab PRN Reason: Pain Vitamin C/Biotin [Hair, Skin and Nails] 1 tab PO DAILY Naproxen Sodium [Aleve] 440 mg PO DAILY PRN PRN Reason: Pain Multivit with Calcium,Iron,Min [Women's Multivitamin] 1 each PO DAILY Discharge Medication List Gabapentin 800 mg PO QID 05/01/14 [History] Omeprazole 20 mg PO DAILY 05/01/14 [History] Topiramate 100 mg PO BID 05/01/14 [History] HYDROcodone/APAP 7.5-325MG [[place] 7.5-325] 1 tab PO QID PRN 03/11/16 [History] Baclofen [Lioresal] 20 mg PO HS 07/02/17 [History] Sertraline [Zoloft] 50 mg PO DAILY 07/02/17 [History] buPROPion XL [Wellbutrin XL] 150 mg PO TID 07/02/17 [History] Ibuprofen [Motrin] 600 mg PO Q8HR PRN #30 tab 01/21/18 [Rx] Spironolactone 50 mg PO DAILY 01/21/18 [History] Multivit with Calcium,Iron,Min [Women's Multivitamin] 1 each PO DAILY 10/21/19 [History] Naproxen Sodium [Aleve] 440 mg PO DAILY PRN 10/21/19 [History] Vitamin C/Biotin [Hair, Skin and Nails] 1 tab PO DAILY 10/21/19 [History] Docusate [Colace] 100 mg PO BID #20 capsule 10/22/19 [Rx] HYDROcodone/APAP 5-325MG [[place] 5-325] 1 tab PO Q6HR PRN #10 tab 10/22/19 [Rx] Follow up Appointment(s)/Referral(s): Latrell Alexis MD [STAFF PHYSICIAN] - 10/30/19 1:30 pm Patient Instructions/Handouts: *Surgery [facility] - (Anesthesia) Discharge Instructions Outpatient Surgery, Incisional Hernia (DC), Ventral Hernia Repair (DC) Activity/Diet/Wound Care/Special Instructions: RX AT [facility]
== END 2019-10-24 12:18 | disposition home or self-care (01) | DRG 355 ==
LOC: OR 07:28 → 5NMEDONC 10:10 → OR 10-23 08:30 → 5NMEDONC 10-23 08:30 → OBSVTOIN 10-24 08:55
PROVIDERS: ADMIT Surgery; ATTEND Surgery
PROC: 8E0W4CZ Robotic Assisted Procedure of Trunk Region, Percutaneous Endoscopic Approach (ICD-10-PCS; principal; 2019-10-22 09:10)
PROC: 0WUF4JZ Supplement Abdominal Wall with Synthetic Substitute, Percutaneous Endoscopic Approach (ICD-10-PCS; principal; 2019-10-22 09:10)
DX: K43.6 Other and unspecified ventral hernia with obstruction, without gangrene (principal); F17.200 Nicotine dependence, unspecified, uncomplicated; F32.9 Major depressive disorder, single episode, unspecified; F41.9 Anxiety disorder, unspecified; I10 Essential (primary) hypertension; J44.9 Chronic obstructive pulmonary disease, unspecified; Z79.899 Other long term (current) drug therapy; Z82.49 Family history of ischemic heart disease and other diseases of the circulatory system; Z87.01 Personal history of pneumonia (recurrent); Z86.14 Personal history of Methicillin resistant Staphylococcus aureus infection; G89.29 Other chronic pain; Z90.49 Acquired absence of other specified parts of digestive tract; Z88.3 Allergy status to other anti-infective agents; K21.9 Gastro-esophageal reflux disease without esophagitis
CPT/HCPCS: 64488; 86850; 86900; 86901; 93005

== ENCOUNTER 2019-11-13 07:48 | Day surgery (SDC) | payer MEDICARE, OTHER ==
[2019-11-10 15:31] VITALS: BMI 17.1
[~2019-11-13 07:48] MED LIST changes: -ACETAMINOPHEN TAB 500 MG TAB PO ONE; -DEXAMETHASONE SOD PHOSPHATE 10 MG/ML 1 ML VIAL IV ONE; -HEPARIN SODIUM,PORCINE 5,000 UNIT/ML 1 ML VIAL SQ ONE; +LACTATED RINGERS 1,000 ML IV SCH; -MIDAZOLAM 2 MG/2 ML VIAL IV PRN; -ONDANSETRON 4 MG/2 ML VIAL IVP ONE; -SCOPOLAMINE 1.5MG/72HR PATCH TRANSDERM ONE
[2019-11-13 08:17] VITALS: TEMP 97.8
[2019-11-13] MEDS ORDERED: PROPOFOL 10 MG/ML 20 ML VIAL IV ONE (08:44)
--- NOTE | 2019-11-13 08:52 | P.GSHP ---
History of Present Illness H&P Date: 11/13/19 Chief Complaint: GERD This a 59-year-old female who has complaints of GERD. Patient will stay for EGD. Past Medical History Past Medical History: GERD/Reflux, Pneumonia Additional Past Medical History / Comment(s): COPD, leukoplakia of the vocal cords, chronic shoulder back and neck pain, states no HTN, takes spironolactone for hair loss History of Any Multi-Drug Resistant Organisms: MRSA Date of last positivie culture/infection: 05/03/19 MDRO Source:: MRSA cheek Past Surgical History: Cholecystectomy, Hernia Repair, Orthopedic Surgery, Tonsillectomy Additional Past Surgical History / Comment(s): ventral hernia repair, arthroscopic shoulder, vocal cord scraping, dariana fundoplasty, neck surg., recent EGD, colonoscopy, Past Anesthesia/Blood Transfusion Reactions: Postoperative Nausea & Vomiting (PONV) Past Psychological History: Anxiety, Depression Additional Psychological History / Comment(s): . Past Alcohol Use History: None Reported Additional Past Alcohol Use History / Comment(s): quit smoking 2014, smoked <ppd since age of 20. started smoking again, says 1/2 ppd. Past Drug Use History: None Reported - Past Family History Mother History Unknown: Yes Family Medical History: Cancer Father Family Medical History: Unable to Obtain Medications and Allergies Home Medications Medication Instructions Recorded Confirmed Type Gabapentin 800 mg PO QID 05/01/14 11/13/19 History Omeprazole 20 mg PO DAILY 05/01/14 11/13/19 History Topiramate 100 mg PO BID 05/01/14 11/13/19 History HYDROcodone/APAP 7.5-325MG [[place] 1 tab PO QID PRN 03/11/16 11/13/19 History 7.5-325] Baclofen [Lioresal] 20 mg PO HS 07/02/17 11/13/19 History Sertraline [Zoloft] 50 mg PO DAILY 07/02/17 11/13/19 History buPROPion XL [Wellbutrin XL] 150 mg PO TID 07/02/17 11/13/19 History Ibuprofen [Motrin] 600 mg PO Q8HR PRN #30 tab 01/21/18 11/13/19 Rx Spironolactone 50 mg PO DAILY 01/21/18 11/13/19 History Multivit with Calcium,Iron,Min 1 each PO DAILY 10/21/19 11/13/19 History [Women's Multivitamin] Naproxen Sodium [Aleve] 440 mg PO DAILY PRN 10/21/19 11/13/19 History Vitamin C/Biotin [Hair, Skin and 1 tab PO DAILY 10/21/19 11/13/19 History Nails] Albuterol Inhaler [Ventolin Hfa 2 puff INHALATION ONCE PRN 11/10/19 11/13/19 History Inhaler] Docusate [Colace] 100 mg PO BID PRN 11/10/19 11/13/19 History Allergies Allergy/AdvReac Type Severity Reaction Status Date / Time metronidazole [From Flagyl] Allergy Itching, Verified 11/13/19 08:08 BURNING OF SKIN Surgical - Exam Vital Signs Temp Pulse Resp BP Pulse Ox 97.8 F 71 16 116/72 100 11/13/19 08:14 11/13/19 08:14 11/13/19 08:14 11/13/19 08:14 11/13/19 08:14 - General well developed, well nourished, no distress - Eyes PERRL - ENT normal pinna - Neck no masses - Respiratory normal expansion - Cardiovascular Rhythm: regular - Abdomen Abdomen: soft, non tender Assessment and Plan Assessment: GERD. We'll perform EGD.
--- NOTE | 2019-11-13 08:58 | P.OP ---
Date of Procedure: 11/13/19 Preoperative Diagnosis: GERD Postoperative Diagnosis: Antral gastritis Small hiatal hernia Mild esophagitis Procedure(s) Performed: EGD Anesthesia: MAC Surgeon: Latrell Alexis Pathology: other (Antrum, esophagus) Condition: stable Disposition: PACU Description of Procedure: The patient's placed on the endoscopy table in the lateral position. She received IV sedation. The gastroscope was oropharynx and passed in the esophagus and the stomach. Scope was then placed through the pylorus. The first and second portion of duodenum appeared normal. Scope was then brought back the antrum this. Mildly inflamed. A biopsies performed. The scope was then retroflexed remainder stomach appeared normal. There was a very small hiatal hernia. The GE junction was at 40 cm. The distal esophagus was minimal inflammation. A biopsies performed. The proximal esophagus. Normal. The scope was withdrawn for patient.
[2019-11-13 09:23] VITALS: BP 106/72; PULSE 69; RESP 16
== END 2019-11-13 09:37 | disposition home or self-care (01) ==
LOC: ORWHC2ENDO 07:48
PROVIDERS: ATTEND Surgery
DX: K29.50 Unspecified chronic gastritis without bleeding (principal); K21.0 Gastro-esophageal reflux disease with esophagitis; K44.9 Diaphragmatic hernia without obstruction or gangrene; J44.9 Chronic obstructive pulmonary disease, unspecified; Z88.1 Allergy status to other antibiotic agents; Z79.899 Other long term (current) drug therapy; Z87.891 Personal history of nicotine dependence; Z87.01 Personal history of pneumonia (recurrent); G89.29 Other chronic pain; M54.9 Dorsalgia, unspecified; M54.2 Cervicalgia; M25.519 Pain in unspecified shoulder; F41.9 Anxiety disorder, unspecified; F32.9 Major depressive disorder, single episode, unspecified; Z86.14 Personal history of Methicillin resistant Staphylococcus aureus infection; Z90.49 Acquired absence of other specified parts of digestive tract; Z90.89 Acquired absence of other organs; Z98.890 Other specified postprocedural states; Z80.9 Family history of malignant neoplasm, unspecified
CPT/HCPCS: 88305; 43239; J2704

== ENCOUNTER → 2020-02-20 | Outpatient (CLI) | payer MEDICARE, OTHER ==
--- NOTE | 2020-02-24 08:51 | MM ---
Reason for exam: screening (asymptomatic). Last mammogram was performed 1 year and 5 months ago. History: Patient is postmenopausal. Family history of breast cancer in maternal aunt at age 57. Physical Findings: A clinical breast exam by your physician is recommended on an annual basis and results should be correlated with mammographic findings. MG 3D Screening Mammo W/Cad Bilateral CC and MLO view(s) were taken. Prior study comparison: October 02, 2018, bilateral MG 3d screening mammo w/cad. December 28, 2016, bilateral MG 3d screening mammo w/cad. The breast tissue is extremely dense which could obscure a lesion on mammography. Benign appearing bilateral calcifications. ASSESSMENT: Benign, BI-RAD 2 RECOMMENDATION: Routine screening mammogram of both breasts in 1 year.
== END | disposition home or self-care (01) ==
LOC: RADMAMWWP 16:19
PROVIDERS: ATTEND Family Medicine
DX: Z12.31 Encounter for screening mammogram for malignant neoplasm of breast (principal)
CPT/HCPCS: 77063; 77067

== ENCOUNTER → 2021-10-05 | Outpatient (CLI) | payer MEDICARE, OTHER ==
--- NOTE | 2021-10-10 17:43 | MM ---
Reason for Exam: Screening (asymptomatic). Last mammogram was performed 1 year(s) and 8 month(s) ago. Patient History: Menarche at age 14. First Full-Term at age 22. Postmenopausal. Maternal aunt had breast cancer, age 57. Risk Values: Trini 5 year model risk: 1.2%. NCI Lifetime model risk: 6.7%. Prior Study Comparison: 12/28/2016 Bilateral Screening Mammogram, [facility]. 10/02/2018 Bilateral Screening Mammogram, [facility]. 02/20/2020 Bilateral Screening Mammogram, [facility]. Tissue Density: The breast tissue is heterogeneously dense. This may lower the sensitivity of mammography. Findings: Analyzed By CAD. No significant mass, suspicious microcalcification, or other discrete abnormality is seen. Overall Assessment: Negative, BI-RAD 1 Management: Screening Mammogram of both breasts in 1 year. 1. A clinical breast exam by your physician is recommended on an annual basis and results should be correlated with mammographic findings. 2. The patient should continue monthly self breast exams. 3. A negative mammogram should not preclude additional follow-up of suspicious palpable abnormalities. Electronically signed and approved by: Ronit Alcala M.D. Radiologist
== END | disposition home or self-care (01) ==
LOC: RADMAMWWP 14:42
PROVIDERS: ATTEND Family Medicine
DX: Z12.31 Encounter for screening mammogram for malignant neoplasm of breast (principal); Z78.0 Asymptomatic menopausal state; Z80.3 Family history of malignant neoplasm of breast
CPT/HCPCS: 77063; 77067

== ENCOUNTER 2021-12-21 20:37 | Emergency (ER) | payer MEDICARE, OTHER ==
[2021-12-21] MEDS ORDERED: SODIUM CHLORIDE 0.9% 1,000 ML IV STA (20:58)
[2021-12-21] MEDS ORDERED: MORPHINE SULFATE 4 MG/ML SYRINGE IV STA (21:02)
[2021-12-21] MEDS ORDERED: ONDANSETRON 4 MG/2 ML VIAL IVP STA (21:02)
--- NOTE | 2021-12-21 21:19 | ED ---
Abdominal Pain HPI - General Stated Complaint: Abdominal Pain Time Seen by Provider: 12/21/21 20:56 Source: RN notes reviewed - History of Present Illness Initial Comments: This is a pleasant 61-year-old female presents to the emergency department complaining of abdominal pain which really started last night it was mild. Patient describing a cramping pain which comes and goes. She also states that earlier this afternoon her abdomen was distended. Patient has had a bowel movement in states she did pass some gas just prior to arrival. Patient states this seemed to help the abdominal distention. However she still has intermittent cramping type pain. Some nausea without vomiting. Patient denying any constipation even though she is on chronic pain medications. No headache, no fever or chills, no changes in vision or hearing, no sore throat or difficulty with speech, no neck pain, no chest pain or shortness of breath, no abdominal pain,no nausea, no changes in urination or bowel movements, no numbness or tingling, no extremity pain, no skin rashes or lesions. Past medical, surgical, social, and family history reviewed. - Related Data Home Medications Medication Instructions Recorded Confirmed Gabapentin 800 mg PO QID 05/01/14 12/21/21 Topiramate 100 mg PO BID 05/01/14 12/21/21 HYDROcodone/APAP 7.5-325MG [[place] 1 tab PO QID PRN 03/11/16 12/21/21 7.5-325] Baclofen [Lioresal] 20 mg PO BID PRN 07/02/17 12/21/21 Sertraline [Zoloft] 50 mg PO DAILY 07/02/17 12/21/21 buPROPion XL [Wellbutrin XL] 150 mg PO TID 07/02/17 12/21/21 Multivit with Calcium,Iron,Min 1 tab PO DAILY 10/21/19 12/21/21 [Women's Multivitamin] Naproxen Sodium [Aleve] 440 mg PO DAILY PRN 10/21/19 12/21/21 Vitamin C/Biotin [Hair, Skin and 1 tab PO DAILY 10/21/19 12/21/21 Nails] Albuterol Inhaler [Ventolin Hfa 2 puff INHALATION RT-Q6H PRN 11/10/19 12/21/21 Inhaler] Docusate [Colace] 100 mg PO BID PRN 11/10/19 12/21/21 Clindamycin Phosphate 1 applic TOPICAL BID 12/21/21 12/21/21 Hydroxychloroquine Sulfate 200 mg PO BID 12/21/21 12/21/21 [Plaquenil] Leflunomide 20 mg PO W/SUPPER 12/21/21 12/21/21 Spironolactone [Aldactone] 25 mg PO DAILY 12/21/21 12/21/21 Allergies Allergy/AdvReac Type Severity Reaction Status Date / Time metronidazole [From Flagyl] Allergy Itching, Verified 12/21/21 23:25 BURNING OF SKIN Review of Systems ROS Statement: Those systems with pertinent positive or pertinent negative responses have been documented in the HPI. ROS Other: All systems not noted in ROS Statement are negative. Past Medical History Past Medical History: GERD/Reflux, Hypertension, Pneumonia Additional Past Medical History / Comment(s): COPD, hypertension, leukoplakia of the vocal cords, chronic shoulder back and neck pain, acid reflux, depression, smoker History of Any Multi-Drug Resistant Organisms: MRSA Date of last positivie culture/infection: 05/03/19 MDRO Source:: MRSA MOUTH Past Surgical History: Hernia Repair, Orthopedic Surgery, Tonsillectomy Additional Past Surgical History / Comment(s): arthroscopic shoulder, vocal cord scraping, dariana fundoplasty, neck surg., recent EGD, colonoscopy, cholesy cystectomy Past Anesthesia/Blood Transfusion Reactions: No Reported Reaction Additional Psychological History / Comment(s): hx suicidal ideaation Additional Past Alcohol Use History / Comment(s): quit smoking 2014, smoked <ppd since age of 20. started smoking again recently, says 1 pack will last her 3days. - Past Family History Mother History Unknown: Yes Family Medical History: Cancer Father Family Medical History: Unable to Obtain General Exam General appearance: alert, in distress Head exam: Present: atraumatic, normocephalic, normal inspection Eye exam: Present: normal appearance, PERRL, EOMI. Absent: scleral icterus, conjunctival injection, periorbital swelling ENT exam: Present: normal exam, mucous membranes moist Neck exam: Present: normal inspection. Absent: tenderness, meningismus, lymphadenopathy Respiratory exam: Present: normal lung sounds bilaterally. Absent: respiratory distress, wheezes, rales, rhonchi, stridor Cardiovascular Exam: Present: regular rate, normal rhythm, normal heart sounds. Absent: systolic murmur, diastolic murmur, rubs, gallop, clicks GI/Abdominal exam: Present: soft, tenderness (Patient has generalized tenderness to palpation with voluntary guarding. No rebound or percussion tenderness.), guarding, normal bowel sounds. Absent: distended, rebound, rigid Extremities exam: Present: normal inspection, full ROM, normal capillary refill. Absent: tenderness, pedal edema, joint swelling, calf tenderness Back exam: Present: normal inspection Neurological exam: Present: alert, oriented X3, CN II-XII intact Psychiatric exam: Present: normal affect, normal mood Skin exam: Present: warm, dry, intact, normal color. Absent: rash Course Vital Signs 12/21/21 23:17 Temperature 97.9 F Pulse Rate 64 Respiratory 18 Rate Blood Pressure 114/74 O2 Sat by Pulse 97 Oximetry - Reevaluation(s) Reevaluation #1: 12/21/21 23:57 Medical record is reviewed Symptoms are improved here in the emergency department Patient is informed of results and questions answered Patient in no distress Vital signs reviewed and all fell within the normal range, patient was afebrile. These vitals were not documented in the chart as of yet by the RN. Medical Decision Making - Medical Decision Making Patient presents with abdominal pain, patient had distention which actually resolved. Patient is passing gas was able have a bowel movement. I suspect the patient may have had a partial small bowel obstruction which actually resolved. Patient able to hold down fluids here in the emergency department. Patient passing gas. Computed tomography scan shows no specific finding other than an intrarenal stone. I did review the film myself. I believe the patient does have some level of constipation. We'll treat with magnesium citrate. We'll a lso advise the patient take Colace. Patient does take chronic pain medications which make her susceptible to this. Currently waiting lactic acid at 12:06 AM. Also awaiting the ER and to annotated the vital signs which were all within normal limits as noted by me. Patient did have an elevated white blood cell count and elevated platelets which she states that she has had. Patient currently being worked up by Dr. Dawkins--patient has had evaluation for abnormal CBC and thrombocytopenia. Patient states she does have a history of rheumatoid arthritis as well. Patient in no distress at reevaluation. The case was discussed in detail with ED attending physician. Presentation, findings, treatment plan discussed in detail. Patient was told to return to the ER for any signs or symptoms worsen. Told to return immediately if any other problems arise. All questions answered. Treatment plan discussed. Patient in agreement Every effort has been made to ensure accuracy of this dictation. However, due to the limitations of electronic medical records and dictation devices, errors in charting still occur. Population Health Manager Dr. Guadarrama - Lab Data Result diagrams: 12/21/21 21:40 12/21/21 21:40 Lab Results 12/21/21 12/21/21 12/21/21 Range/Units 21:40 21:40 21:40 WBC 15.9 H (3.8-10.6) k/uL RBC 3.63 L (3.80-5.40) m/uL Hgb 11.4 (11.4-16.0) gm/dL Hct 36.4 (34.0-46.0) % MCV 100.2 H (80.0-100.0) fL MCH 31.3 (25.0-35.0) pg MCHC 31.3 (31.0-37.0) g/dL RDW 17.0 H (11.5-15.5) % Plt Count 924 H (150-450) k/uL MPV 8.6 Neutrophils % (Manual) 52 % Band Neuts % (Manual) 13 % Lymphocytes % (Manual) 14 % Monocytes % (Manual) 5 % Eosinophils % (Manual) 6 % Basophils % (Manual) 3 % Metamyelocytes % 3 % Myelocytes % 4 % Neutrophils # (Manual) 10.30 H (1.3-7.7) k/uL Lymphocytes # (Manual) 2.23 (1.0-4.8) k/uL Monocytes # (Manual) 0.80 (0-1.0) k/uL Eosinophils # (Manual) 0.95 H (0-0.7) k/uL Basophils # (Manual) 0.48 H (0-0.2) k/uL Metamyelocytes # (Man) 0.48 H (0) k/uL Myelocytes # (Manual) 0.64 H (0) k/uL Nucleated RBCs 0 (0-0) /100 WBC Manual Slide Review Performed Polychromasia Present Hypochromasia Slight Poikilocytosis (manual Present Anisocytosis Slight Anisocytosis (manual) Present Macrocytosis Slight Sodium 140 (137-145) mmol/L Potassium 4.4 (3.5-5.1) mmol/L Chloride 107 (98-107) mmol/L Carbon Dioxide 23 (22-30) mmol/L Anion Gap 10 mmol/L BUN 13 (7-17) mg/dL Creatinine 0.91 (0.52-1.04) mg/dL Est GFR (CKD-EPI)AfAm 80 (>60 ml/min/1.73 sqM) Est GFR (CKD-EPI)NonAf 69 (>60 ml/min/1.73 sqM) Glucose 74 (74-99) mg/dL Plasma Lactic Acid Avel (0.7-2.0) mmol/L Calcium 9.4 (8.4-10.2) mg/dL Total Bilirubin 0.6 (0.2-1.3) mg/dL AST 47 H (14-36) U/L ALT 26 (4-34) U/L Alkaline Phosphatase 54 (38-126) U/L Troponin I <0.012 (0.000-0.034) ng/mL Total Protein 6.9 (6.3-8.2) g/dL Albumin 4.3 (3.5-5.0) g/dL Urine Color Urine Appearance (Clear) Urine pH (5.0-8.0) Ur Specific [place] (1.001-1.035) Urine Protein (Negative) Urine Glucose (UA) (Negative) Urine Ketones (Negative) Urine Blood (Negative) Urine Nitrite (Negative) Urine Bilirubin (Negative) Urine Urobilinogen (<2.0) mg/dL Ur Leukocyte Esterase (Negative) Urine RBC (0-5) /hpf Urine WBC (0-5) /hpf Ur Squamous Epith Cells (0-4) /hpf Amorphous Sediment (None) /hpf Urine Mucus (None) /hpf 12/21/21 12/21/21 Range/Units 23:15 23:50 WBC (3.8-10.6) k/uL RBC (3.80-5.40) m/uL Hgb (11.4-16.0) gm/dL Hct (34.0-46.0) % MCV (80.0-100.0) fL MCH (25.0-35.0) pg MCHC (31.0-37.0) g/dL RDW (11.5-15.5) % Plt Count (150-450) k/uL MPV Neutrophils % (Manual) % Band Neuts % (Manual) % Lymphocytes % (Manual) % Monocytes % (Manual) % Eosinophils % (Manual) % Basophils % (Manual) % Metamyelocytes % % Myelocytes % % Neutrophils # (Manual) (1.3-7.7) k/uL Lymphocytes # (Manual) (1.0-4.8) k/uL Monocytes # (Manual) (0-1.0) k/uL Eosinophils # (Manual) (0-0.7) k/uL Basophils # (Manual) (0-0.2) k/uL Metamyelocytes # (Man) (0) k/uL Myelocytes # (Manual) (0) k/uL Nucleated RBCs (0-0) /100 WBC Manual Slide Review Polychromasia Hypochromasia Poikilocytosis (manual Anisocytosis Anisocytosis (manual) Macrocytosis Sodium (137-145) mmol/L Potassium (3.5-5.1) mmol/L Chloride (98-107) mmol/L Carbon Dioxide (22-30) mmol/L Anion Gap mmol/L BUN (7-17) mg/dL Creatinine (0.52-1.04) mg/dL Est GFR (CKD-EPI)AfAm (>60 ml/min/1.73 sqM) Est GFR (CKD-EPI)NonAf (>60 ml/min/1.73 sqM) Glucose (74-99) mg/dL Plasma Lactic Acid Avel 0.7 (0.7-2.0) mmol/L Calcium (8.4-10.2) mg/dL Total Bilirubin (0.2-1.3) mg/dL AST (14-36) U/L ALT (4-34) U/L Alkaline Phosphatase (38-126) U/L Troponin I (0.000-0.034) ng/mL Total Protein (6.3-8.2) g/dL Albumin (3.5-5.0) g/dL Urine Color Light Yellow Urine Appearance Clear (Clear) Urine pH 6.0 (5.0-8.0) Ur Specific [place] 1.008 (1.001-1.035) Urine Protein Negative (Negative) Urine Glucose (UA) Negative (Negative) Urine Ketones Negative (Negative) Urine Blood Trace H (Negative) Urine Nitrite Negative (Negative) Urine Bilirubin Negative (Negative) Urine Urobilinogen <2.0 (<2.0) mg/dL Ur Leukocyte Esterase Trace H (Negative) Urine RBC 11 H (0-5) /hpf Urine WBC 2 (0-5) /hpf Ur Squamous Epith Cells 1 (0-4) /hpf Amorphous Sediment Rare H (None) /hpf Urine Mucus Rare H (None) /hpf Disposition Clinical Impression: Abdominal pain, Thrombocytopenia, Leukocytosis Narrative: Abdominal distention, resolved. Chronic hematologic abnormality, intrarenal stone Disposition: HOME SELF-CARE Condition: Stable Instructions (If sedation given, give patient instructions): Abdominal Pain (ED), Constipation (ED) Additional Instructions: Clear liquid diet for the next 24 hours. Advance diet thereafter as tolerated. Make a follow-up appointment with your surgeon. Follow-up with your archery equipment hay sorter as well. Follow-up with your regular physician as directed. Return to the ER immediately if any symptoms worsen, new symptoms arise, or any other problems develop. Is patient prescribed a controlled substance at d/c from ED?: No Referrals: Katja Jefferson DO [Primary Care Provider] - 1-2 days Latrell Alexis MD [STAFF PHYSICIAN] - 1-2 days Alexandro Dawkins MD [STAFF PHYSICIAN] - 12/26/21 Time of Disposition: 00:41
[2021-12-21 22:20] LABS: Albumin 4.3 g/dL (3.5-5.0); Calcium 9.4 mg/dL (8.4-10.2); Total Bilirubin 0.6 mg/dL (0.2-1.3); Total Protein 6.9 g/dL (6.3-8.2)
[2021-12-21 22:22] LABS: Potassium 4.4 mmol/L (3.5-5.1)
[2021-12-21 22:31] LABS: Anisocytosis Slight; HCT 36.4 % (34.0-46.0); HGB 11.4 gm/dL (11.4-16.0); Hypochromasia Slight; MCH 31.3 pg (25.0-35.0); MCHC 31.3 g/dL (31.0-37.0); MCV 100.2 fL (80.0-100.0); Macrocytosis Slight; Mean Platelet Volume 8.6; Platelet Count 924 k/uL (150-450); RBC 3.63 m/uL (3.80-5.40); WBC 15.9 k/uL (3.8-10.6)
--- NOTE | 2021-12-21 22:45 | XR ---
EXAMINATION TYPE: XR abdomen acute w cxr DATE OF EXAM: 12/21/2021 COMPARISON: 07/05/2017 chest x-ray HISTORY: Pain TECHNIQUE: 3 views FINDINGS: There is no heart failure nor confluent pneumonic infiltrate. Costophrenic angles are clear . Bowel gas pattern is normal. No sign of intestinal obstruction or pneumoperitoneum. Fecal pattern i s normal. No pathologic calcification seen over the left kidney. There is a 3 mm calcification over t he right kidney. IMPRESSION: No active cardiopulmonary disease. Nonacute abdomen. Possible right renal calculus. Chest x-ray is stable compared to old exam.
[2021-12-21 23:30] LABS: Amorphous Sediment,Urine Rare /hpf; Appearance,Urine Clear (Clear); Bilirubin,Urine Negative (Negative); Blood,Urine Trace (Negative); Color,Urine Light Yellow; Glucose,Urine (UA) Negative (Negative); Ketones,Urine Negative (Negative); Leukocyte Esterase,Urine Trace (Negative); Mucus,Urine Rare /hpf; Nitrite,Urine Negative (Negative); Protein,Urine Negative (Negative); RBC,Urine 11 /hpf (0-5); Specific Gravity,Urine 1.008 (1.001-1.035); Squamous Epithelial Cell,Urine 1 /hpf (0-4); Urobilinogen,Urine <2.0 mg/dL (<2.0); WBC,Urine 2 /hpf (0-5)
[2021-12-21 23:42] LABS: Anisocytosis (M) Present; Band Neutrophils % 13 %; Basophils # (M) 0.48 k/uL (0-0.2); Eosinophils # (M) 0.95 k/uL (0-0.7); Lymphocytes # (M) 2.23 k/uL (1.0-4.8); Metamyelocytes # (M) 0.48 k/uL (0); Metamyelocytes % 3 %; Myelocytes # (M) 0.64 k/uL (0); Myelocytes % 4 %; Neutrophils % (M) 52 %; Nucleated Red Blood Cells 0 /100 WBC (0-0); Poikilocytosis (M) Present; Polychromasia Present; Total Cells Counted 100
[2021-12-22 00:02] VITALS: RESP 18
[2021-12-22] MEDS ORDERED: MAGNESIUM CITRATE 296 ML BOTTLE PO ONE (00:03)
[2021-12-22 00:44] VITALS: BP 107/78; PULSE 67; TEMP 97.2
== END 2021-12-22 00:58 | disposition home or self-care (01) ==
LOC: EC 20:37
DX: D69.6 Thrombocytopenia, unspecified (principal); R10.9 Unspecified abdominal pain; D72.829 Elevated white blood cell count, unspecified; K21.9 Gastro-esophageal reflux disease without esophagitis; I10 Essential (primary) hypertension; F32.A Depression, unspecified; F17.210 Nicotine dependence, cigarettes, uncomplicated; Z88.1 Allergy status to other antibiotic agents; Z79.51 Long term (current) use of inhaled steroids; Z79.899 Other long term (current) drug therapy
CPT/HCPCS: 36415; 80053; 83605; 84484; 85025; 81001; 74022; 99284; 96374; 96375; 96361 ×3; J2270; J2405

== ENCOUNTER → 2022-01-18 | Outpatient (CLI) | payer MEDICARE, OTHER ==
--- NOTE | 2022-01-18 17:02 | CT ---
EXAMINATION TYPE: CT abdomen pelvis w con CT DLP: 347.30 mGycm, Automated exposure control for dose reduction was used. DATE OF EXAM: 01/18/2022 4:37 PM COMPARISON: CT abdomen pelvis most recent from CLINICAL INDICATION:Female, 61 years old with history of K59.609 partial small bowel obstruction; Abd ominal pain, partial small bowel obstruction. TECHNIQUE: Axial CT of the abdomen and pelvis. Sagittal and coronal reformats were created on a [employer] workstation. Contrast used:100 mL of Isovue 300 with IV Contrast, Oral contrast used: with Oral Contrast FINDINGS: LOWER CHEST: Unremarkable ABDOMEN LIVER: Hepatic cyst GALLBLADDER AND BILE DUCTS: Mild intrahepatic biliary ductal dilatation. Moderate external hepatic bi liary ductal dilatation with common bile duct measuring up to 10 mm which can be seen in setting of c holecystitis cystectomy. PANCREAS: Unremarkable. SPLEEN: Unremarkable. ADRENAL GLANDS: Unremarkable. KIDNEYS AND URETERS: No evidence of hydronephrosis or renal calculus. The ureters are unremarkable. PELVIS BLADDER: Unremarkable REPRODUCTIVE: Atrophic uterus. ABDOMEN & PELVIS STOMACH AND BOWEL: There is a large stool burden throughout the colon most pronounced in the cecum me asuring up to 7.2 cm. No evidence of bowel obstruction. PERITONEUM: No evidence of pneumoperitoneum or free fluid. VASCULATURE: No evidence of aortic aneurysm. Atherosclerosis of the arterial vasculature. MUSCULOSKELETAL: No acute osseous abnormalities, multilevel disc bulging throughout the lumbar spine. Multilevel disc degeneration changes with facet joint arthropathy. LYMPH NODES: No gross evidence for lymphadenopathy. SOFT TISSUE/ABDOMINAL WALL: Unremarkable IMPRESSION: 1. Large stool burden throughout the colon. No evidence of bowel obstruction. 2. Extrahepatic and intrahepatic biliary dilation which can be seen in setting of postcholecystectomy physiology.
== END | disposition home or self-care (01) ==
LOC: RADCTMAIN 14:26
PROVIDERS: ATTEND Surgery
DX: K83.9 Disease of biliary tract, unspecified (principal)
CPT/HCPCS: 74177; Q9967

== ENCOUNTER 2022-09-21 09:47 | Day surgery (SDC) | payer MEDICARE, OTHER ==
[~2022-09-21 09:47] MED LIST changes: +LIDOCAINE 1% (10MG/ML) FOR IV START INTRADERMA PRN
[2022-09-21 10:42] LABS: Glucose,Whole Blood 82 mg/dL (70-110)
[2022-09-21 10:43] VITALS: TEMP 98.6
[2022-09-21] MEDS ORDERED: PROPOFOL 10 MG/ML 20 ML VIAL IV ONE (11:06)
[2022-09-21] MEDS ORDERED: LIDOCAINE 2% INJ 20 MG/ML (2 ML VIAL) ONE (11:06)
--- NOTE | 2022-09-21 11:12 | P.GSHP ---
History of Present Illness H&P Date: 09/21/22 Chief Complaint: History of colon polyps, peptic ulcer disease This 8-year-old female presents today for EGD colonoscopy. Patient's. History of peptic ulcer disease she's also appears history of colon polyps. Past Medical History Past Medical History: GERD/Reflux, Pneumonia, Rheumatoid Arthritis (RA) Additional Past Medical History / Comment(s): IP ADMISSION FORGASTRIC ULCER IN MAY 2022 WITH HIGH PLATELET & WHITE COUNT THROMBYTOSIS- (SEES DR REBOLLEDO). COPD, leukoplakia of the vocal cords, chronic shoulder back and neck pain, acid reflux, depression, raynaud's syndrome. takes aldactone for hair loss. History of Any Multi-Drug Resistant Organisms: MRSA Date of last positivie culture/infection: 05/03/19 MDRO Source:: MRSA FACE Past Surgical History: Back Surgery, Cholecystectomy, Hernia Repair, Orthopedic Surgery, Tonsillectomy Additional Past Surgical History / Comment(s): arthroscopic shoulder, vocal cord scraping, dariana fundoplasty, CERVICAL FUSSION, recent EGD, colonoscopy. VENTRAL HERNIA. Past Anesthesia/Blood Transfusion Reactions: Blood Transfusion Reaction Additional Past Anesthesia/Blood Transfusion Reaction / Comment(s): ABDOMINAL BLOCK DID NOT HELP WITH PAIN ??? TRANSFUSIONS WITH GASTRIC ULCER Past Psychological History: Anxiety, Depression Additional Psychological History / Comment(s): hx suicidal ideaation Smoking Status: Current every day smoker Past Alcohol Use History: None Reported Additional Past Alcohol Use History / Comment(s): quit smoking 2014, smoked <ppd since age of 20. started smoking again recently, says 1 pack will last her 3days. Past Drug Use History: None Reported - Past Family History Mother History Unknown: Yes Family Medical History: Cancer Father Family Medical History: Unable to Obtain Medications and Allergies Home Medications Medication Instructions Recorded Confirmed Type Gabapentin 800 mg PO QID PRN 05/01/14 09/20/22 History Topiramate 100 mg PO BID 05/01/14 09/20/22 History HYDROcodone/APAP 7.5-325MG [[place] 1 tab PO QID 03/11/16 09/20/22 History 7.5-325] Baclofen [Lioresal] 20 mg PO BID PRN 07/02/17 09/20/22 History Sertraline [Zoloft] 50 mg PO QAM 07/02/17 09/20/22 History buPROPion XL [Wellbutrin XL] 150 mg PO BID 07/02/17 09/20/22 History Multivit with Calcium,Iron,Min 1 tab PO DAILY 10/21/19 09/20/22 History [Women's Multivitamin] Spironolactone [Aldactone] 25 mg PO DAILY 12/21/21 09/20/22 History Aspirin [Adult Low Dose Aspirin EC] 81 mg PO DAILY 06/07/22 09/20/22 History Omeprazole [PriLOSEC] 20 mg PO AC-BRKFST #90 cap 06/09/22 09/20/22 Rx Hydroxyurea 500 mg PO QAM 09/20/22 09/20/22 History Allergies Allergy/AdvReac Type Severity Reaction Status Date / Time metronidazole [From Flagyl] Allergy Itching, Verified 06/07/22 19:04 BURNING OF SKIN Surgical - Exam Vital Signs Temp Pulse Resp BP Pulse Ox 98.6 F 75 20 132/71 100 09/21/22 10:41 09/21/22 10:41 09/21/22 10:41 09/21/22 10:41 09/21/22 10:41 - General well developed, well nourished, no distress - Eyes PERRL - ENT normal pinna - Neck no masses - Respiratory normal expansion - Cardiovascular Rhythm: regular - Abdomen Abdomen: soft, non tender Assessment and Plan Assessment: History of a closely and colon polyps. We'll perform colonoscopy.
--- NOTE | 2022-09-21 11:37 | P.OP ---
Date of Procedure: 09/21/22 Preoperative Diagnosis: Peptic ulcer disease History of colon polyps Postoperative Diagnosis: Hemorrhagic gastritis Diverticulosis External hemorrhoids Procedure(s) Performed: EGD Colonoscopy Anesthesia: MAC Pathology: other Condition: stable Disposition: PACU Description of Procedure: The patient's placed on the endoscopy table in the lateral position. She received IV sedation. The gastroscope was oropharynx passed in the esophagus and into the stomach. Scope was placed through the pylorus. The first and second portion of duodenum appeared normal. There is no evidence of any blood in the duodenum. Scope summer back and stomach. There appeared to be evidence of hemorrhagic gastritis. A biopsies was performed. Scope was retroflexed there was no hiatal hernia. The GE junction was at 40 cm per the distal esophagus appeared normal. The proximal esophagus appeared normal. Scope withdrawn for patient. Next digital rectal exam was performed. There were external hemorrhoids noted. The flexible colonoscope was then placed the patient's anus and passed throughout the colon. The colon was very tortuous. The ileocecal valve was not visualized secondary to tortuosity valve. The visualized right colon appeared normal. The transverse colon had a few diverticula noted in the descending; had extensive diverticular changes. Scope was then brought back the rectum this appeared normal. Scope withdrawn for patient.
[2022-09-21 12:04] VITALS: BP 126/65; PULSE 69; RESP 16
== END 2022-09-21 12:25 | disposition home or self-care (01) ==
LOC: ORWHC2ENDO 09:47
PROVIDERS: ATTEND Surgery
DX: K29.50 Unspecified chronic gastritis without bleeding (principal); K27.9 Peptic ulcer, site unspecified, unspecified as acute or chronic, without hemorrhage or perforation; K21.9 Gastro-esophageal reflux disease without esophagitis; K57.30 Diverticulosis of large intestine without perforation or abscess without bleeding; K64.4 Residual hemorrhoidal skin tags; K63.89 Other specified diseases of intestine; Z86.010 Personal history of colon polyps; M06.9 Rheumatoid arthritis, unspecified; J44.9 Chronic obstructive pulmonary disease, unspecified; F32.A Depression, unspecified; I73.00 Raynaud's syndrome without gangrene; Z86.14 Personal history of Methicillin resistant Staphylococcus aureus infection; Z98.0 Intestinal bypass and anastomosis status; F41.9 Anxiety disorder, unspecified; F17.210 Nicotine dependence, cigarettes, uncomplicated; F10.90 Alcohol use, unspecified, uncomplicated; Z79.52 Long term (current) use of systemic steroids; Z79.82 Long term (current) use of aspirin; Z79.899 Other long term (current) drug therapy; Z88.1 Allergy status to other antibiotic agents
CPT/HCPCS: 88305; 45378; 43239; J2704; J2001

== ENCOUNTER 2022-09-30 14:44 | Emergency (ER) | payer MEDICARE, OTHER ==
[2022-09-30 15:15] LABS: Appearance,Urine Turbid (Clear); Bilirubin,Urine Negative (Negative); Blood,Urine Large (Negative); Color,Urine Dark Red; Glucose,Urine (UA) Negative (Negative); Ketones,Urine Negative (Negative); Leukocyte Esterase,Urine Large (Negative); Nitrite,Urine Positive (Negative); PH, Urine 6.5 (5.0-8.0); Protein,Urine 2+ (Negative); RBC,Urine >182 /hpf (0-5); Squamous Epithelial Cell,Urine 6 /hpf (0-4); Urobilinogen,Urine <2.0 mg/dL (<2.0); WBC,Urine >182 /hpf (0-5)
[2022-09-30 15:16] LABS: Specific Gravity,Urine 1.015 (1.001-1.035)
[2022-09-30] MEDS ORDERED: SODIUM CHLORIDE 0.9% 1,000 ML IV STA (15:35)
[2022-09-30] MEDS ORDERED: KETOROLAC 15 MG/ML 1 ML VIAL IVP STA (15:36)
[2022-09-30] MEDS ORDERED: cefTRIAXone IN SWFI 1,000 MG/10 ML SYRINGE IVP STA (15:48)
[2022-09-30] MEDS ORDERED: PHENAZOPYRIDINE 100 MG TAB PO STA ×2 (15:48→17:54)
--- NOTE | 2022-09-30 15:48 | ED ---
Female Urogenital HPI - General Chief complaint: Vaginal Bleeding Stated complaint: SEV VAG BLEEDING-sent by urgent care Time Seen by Provider: 09/30/22 15:25 Source: patient, RN notes reviewed Mode of arrival: ambulatory Limitations: no limitations - History of Present Illness Initial comments: This is a 62-year-old female who presents to the emergency department for back pain, burning with urination, and blood in her urine. States that about a week ago, she started to develop lower back pain, which progressed into burning with urination, followed by blood in the urine. States that her urine this morning was essentially all blood. She went to urgent care initially, and they were unable to evaluate her urine due to the amount of blood present. She was instructed to come to the emergency department for further evaluation. Patient states that the blood was in the toilet when she was urinating. She does not have vaginal bleeding when she wipes. The back pain is largely right-sided, but states that it does also cross over into the other side to some extent. Denies any changes in bowel habits. Also denies any fevers or nausea/vomiting. Denies any known history of similar symptoms in the past. Denies any fevers, chills, sore throat, cough, dyspnea, chest pain, palpitations, abdominal pain, nausea, vomiting, diarrhea, or headaches. MD Complaint: dysuria, other (hematuria) - Related Data Home Medications Medication Instructions Recorded Confirmed Gabapentin 800 mg PO QID PRN 05/01/14 09/20/22 Topiramate 100 mg PO BID 05/01/14 09/20/22 HYDROcodone/APAP 7.5-325MG [[place] 1 tab PO QID 03/11/16 09/20/22 7.5-325] Baclofen [Lioresal] 20 mg PO BID PRN 07/02/17 09/20/22 Sertraline [Zoloft] 50 mg PO QAM 07/02/17 09/20/22 buPROPion XL [Wellbutrin XL] 150 mg PO BID 07/02/17 09/20/22 Multivit with Calcium,Iron,Min 1 tab PO DAILY 10/21/19 09/20/22 [Women's Multivitamin] Spironolactone [Aldactone] 25 mg PO DAILY 12/21/21 09/20/22 Aspirin [Adult Low Dose Aspirin EC] 81 mg PO DAILY 06/07/22 09/20/22 Hydroxyurea 500 mg PO QAM 09/20/22 09/20/22 Previous Rx's Medication Instructions Recorded Omeprazole [PriLOSEC] 20 mg PO AC-BRKFST #90 cap 06/09/22 Cephalexin [Keflex] 500 mg PO Q6HR 10 Days #40 cap 09/30/22 Phenazopyridine [Pyridium] 200 mg PO TID #6 tablet 09/30/22 Allergies Allergy/AdvReac Type Severity Reaction Status Date / Time metronidazole [From Flagyl] Allergy Itching, Verified 09/30/22 14:52 BURNING OF SKIN Review of Systems ROS Statement: Those systems with pertinent positive or pertinent negative responses have been documented in the HPI. ROS Other: All systems not noted in ROS Statement are negative. Past Medical History Past Medical History: GERD/Reflux, Pneumonia, Rheumatoid Arthritis (RA) Additional Past Medical History / Comment(s): IP ADMISSION FORGASTRIC ULC[facility] IN MAY 2022 WITH HIGH PLATELET & WHITE COUNT THROMBYTOSIS- (SEES DR DAWKINS). COPD, leukoplakia of the vocal cords, chronic shoulder back and neck pain, acid reflux, depression, raynaud's syndrome. takes aldactone for hair loss. History of Any Multi-Drug Resistant Organisms: MRSA Date of last positivie culture/infection: 05/03/19 MDRO Source:: MRSA FACE Past Surgical History: Back Surgery, Cholecystectomy, Hernia Repair, Orthopedic Surgery, Tonsillectomy Additional Past Surgical History / Comment(s): arthroscopic shoulder, vocal cord scraping, dariana fundoplasty, CERVICAL FUSSION, recent EGD, colonoscopy. VENTRAL HERNIA. Past Anesthesia/Blood Transfusion Reactions: Blood Transfusion Reaction Additional Past Anesthesia/Blood Transfusion Reaction / Comment(s): ABDOMINAL BLOCK DID NOT HELP WITH PAIN ??? TRANSFUSIONS WITH GASTRIC ULCER Past Psychological History: Anxiety, Depression Smoking Status: Current every day smoker Past Alcohol Use History: None Reported Past Drug Use History: None Reported - Past Family History Mother History Unknown: Yes Family Medical History: Cancer Father Family Medical History: Unable to Obtain General Exam Limitations: no limitations General appearance: alert, in no apparent distress Head exam: Present: atraumatic, normocephalic, normal inspection Respiratory exam: Present: normal lung sounds bilaterally. Absent: respiratory distress, wheezes, rales, rhonchi, stridor Cardiovascular Exam: Present: regular rate, normal rhythm, normal heart sounds. Absent: systolic murmur, diastolic murmur, rubs, gallop, clicks Back exam: Present: CVA tenderness (R), CVA tenderness (L) Neurological exam: Present: alert, oriented X3, CN II-XII intact Psychiatric exam: Present: normal affect, normal mood Skin exam: Present: warm, dry, intact, normal color. Absent: rash Course Vital Signs 09/30/22 09/30/22 14:49 18:16 Temperature 97.8 F 98.2 F Pulse Rate 95 76 Respiratory 20 14 Rate Blood Pressure 118/82 115/74 O2 Sat by Pulse 99 98 Oximetry Medical Decision Making - Medical Decision Making This is a 62-year-old female who presents to the emergency department for back pain and hematuria. Was pt. sent in by a medical professional or institution? @ -[facility] Did you speak to anyone other than the patient for history? @ -No Did you review nursing and triage notes? @ -I disagree with the aspect about the patient saying that she is having vaginal bleeding. She states that she has blood in her urine. Were old charts reviewed? @ -No Differential Diagnosis? @ -Differential Back Pain: Strain, zoster, cauda equina syndrome, epidural abscess, vertebral osteomyelitis, discitis, fracture, subluxation, disc herniation, DJD, spinal stenosis, dissection, AAA, pancreatitis, peptic ulcer disease, pyelonephritis, kidney stone, this is not meant to be an all-inclusive list. EKG interpreted by me (3pts min.)? @ -Not obtained X-rays interpreted by me (1pt min.)? @ -Not obtained CT interpreted by me (1pt min.)? @ -CT scan of the abdomen and pelvis obtained. My interpretation identifies no evidence of ureteral calculus or hydronephrosis. U/S interpreted by me (1pt. min.)? @ -Not obtained What testing was considered but not performed? (CT, X-rays, U/S, labs)? Why? @ -None What meds were considered but not given? Why? @ -None Did you discuss the management of the patient with other professionals? @ -No Did you reconcile home meds? @ -No Was smoking cessation discussed for >3mins.? @ -No Was critical care preformed (if so, how long)? @ -No Were there social determinants of health that impacted care today? How? (Homelessness, low income, unemployed, alcoholism, drug addiction, transportation, low edu. Level, literacy, decrease access to med. care, senior care, rehab)? @ -No Was there de-escalation of care discussed even if they declined? (Discuss DNR or withdrawal of care, Hospice)? @ -No What co-morbidities impacted this encounter? (DM, HTN, Smoking, COPD, CAD, Cancer, CVA, Hep., AIDS, mental health diagnosis, sleep apnea, morbid obesity)? @ -None Was patient admitted / discharged? @ -Discharged. Lab work obtained revealing leukocytosis and thrombocytosis. Patient does have a history of thrombocytosis and is managed by Dr. Dawkins, hem/onc. Urinalysis consistent with a UTI. Computed tomography scan of the abdomen and pelvis obtained revealing no evidence of a ureteral calculus or inflammatory changes around the kidneys. Given that she now has pain in the back with the leukocytosis, she may have started to develop a pyelonephritis. 1g of ceftriaxone administered in the emergency department. Prescription for 10 day course of Keflex provided with dosing instructions reviewed. Prescription for Pyridium provided as well to manage additional discomfort. Otherwise advised supportive care and close follow up with her PCP. Undiagnosed new problem with uncertain prognosis? @ -None Drug Therapy requiring intensive monitoring for toxicity (Heparin, Nitro, Insulin, Cardizem)? @ -None Were any procedures done? @ -None Diagnosis/symptom? @ -UTI, pyelonephritis Acute, or Chronic, or Acute on Chronic? @ -Acute Uncomplicated (without systemic symptoms) or Complicated (systemic symptoms)? @ -Uncomplicated Side effects of treatment? @ -None Exacerbation, Progression, or Severe Exacerbation] @ -Not applicable Poses a threat to life or bodily function? @ -No Return precautions reviewed in depth, the patient is instructed to return to the emergency department with any new, worsening, or concerning symptoms. Patient verbalized understanding. This case was discussed in detail with the attending ED physician, Dr. Murray. Presentation, findings, and treatment plan discussed in detail as well. - Lab Data Result diagrams: 09/30/22 15:45 09/30/22 15:45 Lab Results 09/30/22 09/30/22 09/30/22 Range/Units 15:01 15:45 15:45 WBC 24.8 H (3.8-10.6) k/uL RBC 3.88 (3.80-5.40) m/uL Hgb 10.6 L (11.4-16.0) gm/dL Hct 34.7 (34.0-46.0) % MCV 89.5 (80.0-100.0) fL MCH 27.2 (25.0-35.0) pg MCHC 30.4 L (31.0-37.0) g/dL RDW 24.3 H (11.5-15.5) % Plt Count 1265 H* (150-450) k/uL MPV 8.7 Neutrophils % (Manual) 67 % Band Neuts % (Manual) 1 % Lymphocytes % (Manual) 14 % Monocytes % (Manual) 11 % Eosinophils % (Manual) 4 % Basophils % (Manual) 1 % Myelocytes % 2 % Neutrophils # (Manual) 16.80 H (1.3-7.7) k/uL Lymphocytes # (Manual) 3.47 (1.0-4.8) k/uL Monocytes # (Manual) 2.73 H (0-1.0) k/uL Eosinophils # (Manual) 0.99 H (0-0.7) k/uL Basophils # (Manual) 0.25 H (0-0.2) k/uL Myelocytes # (Manual) 0.50 H (0) k/uL Nucleated RBCs 0 (0-0) /100 WBC Manual Slide Review Performed Hypochromasia Marked Anisocytosis Marked Microcytosis Slight Sodium 139 (137-145) mmol/L Potassium 4.5 (3.5-5.1) mmol/L Chloride 104 (98-107) mmol/L Carbon Dioxide 24 (22-30) mmol/L Anion Gap 11 mmol/L BUN 11 (7-17) mg/dL Creatinine 0.83 (0.52-1.04) mg/dL Est GFR (CKD-EPI)AfAm 89 (>60 ml/min/1.73 sqM) Est GFR (CKD-EPI)NonAf 77 (>60 ml/min/1.73 sqM) Glucose 106 H (74-99) mg/dL Plasma Lactic Acid Avel (0.7-2.0) mmol/L Calcium 9.9 (8.4-10.2) mg/dL Total Bilirubin 0.4 (0.2-1.3) mg/dL AST 48 H (14-36) U/L ALT 29 (4-34) U/L Alkaline Phosphatase 76 (38-126) U/L Total Protein 8.1 (6.3-8.2) g/dL Albumin 4.9 (3.5-5.0) g/dL Urine Color Dark Red Urine Appearance Turbid H (Clear) Urine pH 6.5 (5.0-8.0) Ur Specific [place] 1.015 (1.001-1.035) Urine Protein 2+ H (Negative) Urine Glucose (UA) Negative (Negative) Urine Ketones Negative (Negative) Urine Blood Large H (Negative) Urine Nitrite Positive H (Negative) Urine Bilirubin Negative (Negative) Urine Urobilinogen <2.0 (<2.0) mg/dL Ur Leukocyte Esterase Large H (Negative) Urine RBC >182 H (0-5) /hpf Urine WBC >182 H (0-5) /hpf Urine WBC Clumps Many H (None) /hpf Ur Squamous Epith Cells 6 H (0-4) /hpf 09/30/22 Range/Units 15:45 WBC (3.8-10.6) k/uL RBC (3.80-5.40) m/uL Hgb (11.4-16.0) gm/dL Hct (34.0-46.0) % MCV (80.0-100.0) fL MCH (25.0-35.0) pg MCHC (31.0-37.0) g/dL RDW (11.5-15.5) % Plt Count (150-450) k/uL MPV Neutrophils % (Manual) % Band Neuts % (Manual) % Lymphocytes % (Manual) % Monocytes % (Manual) % Eosinophils % (Manual) % Basophils % (Manual) % Myelocytes % % Neutrophils # (Manual) (1.3-7.7) k/uL Lymphocytes # (Manual) (1.0-4.8) k/uL Monocytes # (Manual) (0-1.0) k/uL Eosinophils # (Manual) (0-0.7) k/uL Basophils # (Manual) (0-0.2) k/uL Myelocytes # (Manual) (0) k/uL Nucleated RBCs (0-0) /100 WBC Manual Slide Review Hypochromasia Anisocytosis Microcytosis Sodium (137-145) mmol/L Potassium (3.5-5.1) mmol/L Chloride (98-107) mmol/L Carbon Dioxide (22-30) mmol/L Anion Gap mmol/L BUN (7-17) mg/dL Creatinine (0.52-1.04) mg/dL Est GFR (CKD-EPI)AfAm (>60 ml/min/1.73 sqM) Est GFR (CKD-EPI)NonAf (>60 ml/min/1.73 sqM) Glucose (74-99) mg/dL Plasma Lactic Acid Avel 1.1 (0.7-2.0) mmol/L Calcium (8.4-10.2) mg/dL Total Bilirubin (0.2-1.3) mg/dL AST (14-36) U/L ALT (4-34) U/L Alkaline Phosphatase (38-126) U/L Total Protein (6.3-8.2) g/dL Albumin (3.5-5.0) g/dL Urine Color Urine Appearance (Clear) Urine pH (5.0-8.0) Ur Specific [place] (1.001-1.035) Urine Protein (Negative) Urine Glucose (UA) (Negative) Urine Ketones (Negative) Urine Blood (Negative) Urine Nitrite (Negative) Urine Bilirubin (Negative) Urine Urobilinogen (<2.0) mg/dL Ur Leukocyte Esterase (Negative) Urine RBC (0-5) /hpf Urine WBC (0-5) /hpf Urine WBC Clumps (None) /hpf Ur Squamous Epith Cells (0-4) /hpf - Radiology Data Radiology results: report reviewed, image reviewed Disposition Clinical Impression: UTI (urinary tract infection), Pyelonephritis Disposition: HOME SELF-CARE Instructions (If sedation given, give patient instructions): Urinary Tract Infection in Women (ED), Kidney Infection (ED) Additional Instructions: Return to the emergency department with any new, worsening, or concerning symptoms. Take the antibiotic as prescribed for 10 days, with your initial dose beginning tomorrow, as you received a dose of antibiotics in the emergency department. You can take the Pyridium up to 3 times daily for 2 days to help with the burning with urination. You can also alternate with ibuprofen and Tylenol as needed for additional pain relief. Follow up with your primary care provider in 1-2 days. Prescriptions: Cephalexin [Keflex] 500 mg PO Q6HR 10 Days #40 cap Phenazopyridine [Pyridium] 200 mg PO TID #6 tablet Is patient prescribed a controlled substance at d/c from ED?: No Referrals: Katja Jefferson DO [Primary Care Provider] - 1-2 days
[2022-09-30 16:30] LABS: Anisocytosis Marked; HCT 34.7 % (34.0-46.0); HGB 10.6 gm/dL (11.4-16.0); Hypochromasia Marked; MCH 27.2 pg (25.0-35.0); MCHC 30.4 g/dL (31.0-37.0); MCV 89.5 fL (80.0-100.0); Mean Platelet Volume 8.7; Microcytosis Slight; RBC 3.88 m/uL (3.80-5.40); RDW 24.3 % (11.5-15.5); WBC 24.8 k/uL (3.8-10.6)
[2022-09-30 16:32] LABS: Platelet Count 1265 k/uL (150-450)
[2022-09-30 17:00] LABS: Albumin 4.9 g/dL (3.5-5.0); Calcium 9.9 mg/dL (8.4-10.2); Potassium 4.5 mmol/L (3.5-5.1); Total Bilirubin 0.4 mg/dL (0.2-1.3); Total Protein 8.1 g/dL (6.3-8.2)
--- NOTE | 2022-09-30 17:22 | CT ---
EXAMINATION TYPE: CT abdomen pelvis w con DATE OF EXAM: 09/30/2022 COMPARISON: 01/18/2022 HISTORY: flank pain, hematuria CT DLP: 546.9 mGycm CONTRAST: CT scan of the abdomen and pelvis is performed without Oral Contrast and with IV Contrast, patient in jected with 100 mL of Isovue 300. FINDINGS: LUNG BASES-: No visible nodule. No infiltrate. LIVER/GB: There is previous cholecystectomy with intra and extrahepatic biliary ductal dilatation unc hanged from prior study. No space occupying hepatic lesion. Biliary tree is of normal caliber. PANCREAS: No inflammation. No distinct mass. SPLEEN: No splenic enlargement. No lesion seen. ADRENALS: No nodule. No thickening. KIDNEYS/BLADDER: No hydronephrosis. Nonobstructing 4.5 mm calculus upper pole right kidney. Addition al 2 mm nonobstructing calculus lower pole right kidney. The left kidney is free of nephrolithiasis. No distinct renal mass. Urinary bladder grossly unremarkable. BOWEL: For visualization of the appendix. No inflammatory process right lower quadrant. Normal bowel caliber. No inflammation. GENITAL ORGANS: Hysterectomy changes are present. No evidence for adnexal mass. LYMPH NODES: No greater than 1cm abdominal or pelvic lymph nodes are appreciated. AORTA: No significant abnormality. OSSEOUS STRUCTURES: Severe degenerative changes lumbar spine. Sacral Tarlov cysts. OTHER: No significant additional abnormality is seen. IMPRESSION: 1. Nonobstructing right-sided nephrolithiasis. 2. Changes of prior cholecystectomy with intra and extrahepatic biliary ductal dilatation unchanged f rom prior study.
[2022-09-30] MEDS ORDERED: PHENAZOPYRIDINE 200 MG TAB PO STA (17:50)
[2022-09-30] MEDS ORDERED: IBUPROFEN 600 MG STARTER PACK 4 TAB BTL PO STA (17:50)
[2022-09-30] MEDS ORDERED: ACET/COD 300 MG/30 MG STARTER PACK 6 TAB BTL PO STA (17:50)
[2022-09-30 18:21] VITALS: BP 115/74; PULSE 76; RESP 14; TEMP 98.2
[2022-09-30 18:22] LABS: Band Neutrophils % 1 %; Basophils # (M) 0.25 k/uL (0-0.2); Eosinophils # (M) 0.99 k/uL (0-0.7); Lymphocytes # (M) 3.47 k/uL (1.0-4.8); Monocytes # (M) 2.73 k/uL (0-1.0); Myelocytes % 2 %; Neutrophils % (M) 67 %; Nucleated Red Blood Cells 0 /100 WBC (0-0); Total Cells Counted 100
== END 2022-09-30 18:30 | disposition home or self-care (01) ==
LOC: EC 14:44
DX: N12 Tubulo-interstitial nephritis, not specified as acute or chronic (principal); N39.0 Urinary tract infection, site not specified; K21.9 Gastro-esophageal reflux disease without esophagitis; M06.9 Rheumatoid arthritis, unspecified; F41.9 Anxiety disorder, unspecified; F32.A Depression, unspecified; F17.200 Nicotine dependence, unspecified, uncomplicated; Z88.8 Allergy status to other drugs, medicaments and biological substances; Z79.82 Long term (current) use of aspirin; Z79.899 Other long term (current) drug therapy
CPT/HCPCS: 36415; 80053; 83605; 85025; 81001; 87086; 74177; 99284; 96374; 96375; 96361; J0696; J1885; Q9967; 87077; 87186

== ENCOUNTER → 2022-10-17 | Outpatient (CLI) | payer MEDICARE, OTHER ==
--- NOTE | 2022-10-17 14:53 | CT ---
EXAMINATION TYPE: CT sinus wo con CT DLP: 380 mGycm, Automated exposure control for dose reduction was used. DATE OF EXAM: 10/17/2022 2:29 PM COMPARISON: CT 01/21/2018. CLINICAL INDICATION:Female, 62 years old with history of R43.9 UNSPECIFIED DISTURBANCES OF SMELL AND TASTE; , UNSPECIFIED DISTURBANCES OF SMELL AND TASTE TECHNIQUE: Multiple thin axial images were obtained through the paranasal sinuses without the use of IV contrast. Additional coronal and sagittal reformatted images were submitted for evaluation. Contrast used: none Oral contrast used: none FINDINGS: Frontal sinuses: Normally developed and aerated. Frontal Recess: Clear Maxillary Sinuses: Normally developed and aerated. Maxillary Infundibula([facility]): Clear, No Gayla cells identified. Ethmoid sinuses: Normally developed and aerated. Ethmoidal notch: Unprotected bilateral anterior ethm oidal arteries. Sphenoid sinuses: Normally developed and aerated. There is sellar sphenoid sinus pneumatization witho ut evidence of dehiscence. No dehiscence of carotid canal. No evidence of optic nerve dehiscence wit hin the sphenoid sinus. No evidence of Onodi cells. Sphenoethmoidal recesses: Clear. Nasal septum: Within normal limits.. Nasal Turbinates: Within normal limits. Mastoid air cells & middle ears: The air cells are clear. The middle ears are grossly unremarkable. Modified Soft tissues & Brain: Partially seen without gross abnormality. Globes are intact. Other: Cribriform plate demonstrates symmetric Keros classification type 2 cribriform plate. No evidence of bony dehiscence of skull base. Lamina papyracea is intact without evidence of remote orbital fracture or orbital prolapse into the e thmoid sinus. Pneumatization of the tory marcia. IMPRESSION: 1. No significant mucosal sinus disease. 2. The ostiomeatal units, frontonasal and sphenoethmoidal recesses are clear.
== END | disposition home or self-care (01) ==
LOC: RADCTMAIN 13:42
PROVIDERS: ATTEND Otolaryngology
DX: R43.9 Unspecified disturbances of smell and taste (principal)
CPT/HCPCS: 70486

== ENCOUNTER 2023-03-09 14:57 | Inpatient (IN) | payer MEDICARE, OTHER ==
--- NOTE | 2023-03-09 15:39 | ED ---
General Adult HPI - General Chief complaint: Weakness Stated complaint: SOB, Back Pain Source: patient, EMS, RN notes reviewed, old records reviewed Mode of arrival: EMS Limitations: no limitations - History of Present Illness Initial comments: 62-year-old female with progressive weakness per patient states that she has been dealing with this for many months however over the past 1 week she's been more significantly weak and having difficulty ambulating. She has a history of anemia and follows with hematology. She states she does have a hematological condition but is uncertain what it is. She denies fever. She reports a mid back pain associated with her symptoms per chills reports lower extremity edema. No chest pain. She reports some dyspnea with exertion. - Related Data Home Medications Medication Instructions Recorded Confirmed Gabapentin 800 mg PO TID 05/01/14 03/09/23 Topiramate 100 mg PO BID 05/01/14 03/09/23 HYDROcodone/APAP 7.5-325MG [[place] 1 tab PO QID 03/11/16 03/09/23 7.5-325] Baclofen [Lioresal] 20 mg PO HS 07/02/17 03/09/23 Sertraline [Zoloft] 50 mg PO DAILY 07/02/17 03/09/23 buPROPion XL [Wellbutrin XL] 150 mg PO BID 07/02/17 03/09/23 Multivit with Calcium,Iron,Min 1 tab PO DAILY 10/21/19 03/09/23 [Women's Multivitamin] Spironolactone [Aldactone] 25 mg PO W/SUPPER 12/21/21 03/09/23 Aspirin [Adult Low Dose Aspirin EC] 81 mg PO Q48H 06/07/22 03/09/23 Hydroxyurea 500 mg PO DAILY 09/20/22 03/09/23 Clindamycin Phosphate 1 applic TOPICAL BID 01/16/23 03/09/23 Tretinoin [Tretinoin 0.025%] 1 applic TOPICAL HS 01/16/23 03/09/23 Ondansetron Odt [Zofran Odt] 4 mg PO Q6H PRN 03/09/23 03/09/23 Previous Rx's Medication Instructions Recorded Omeprazole [PriLOSEC] 20 mg PO AC-BRKFST #90 cap 06/09/22 Lactulose [Cephulac] 30 gm PO BID PRN #600 ml 01/20/23 Allergies Allergy/AdvReac Type Severity Reaction Status Date / Time metronidazole [From Flagyl] Allergy Itching, Verified 01/16/23 22:47 BURNING OF SKIN Review of Systems ROS Statement: Those systems with pertinent positive or pertinent negative responses have been documented in the HPI. ROS Other: All systems not noted in ROS Statement are negative. Past Medical History Past Medical History: GERD/Reflux, Pneumonia, Rheumatoid Arthritis (RA) Additional Past Medical History / Comment(s): IP ADMISSION FORGA[facility] IN MAY 2022 WITH HIGH PLATELET & WHITE COUNT THROMBYTOSIS- (SEES DR REBOLLEDO). COPD, leukoplakia of the vocal cords, chronic shoulder back and neck pain, acid reflux, depression, raynaud's syndrome. takes aldactone for hair loss. History of Any Multi-Drug Resistant Organisms: MRSA Date of last positivie culture/infection: 05/03/19 MDRO Source:: MRSA FACE Past Surgical History: Back Surgery, Cholecystectomy, Hernia Repair, Orthopedic Surgery, Tonsillectomy Additional Past Surgical History / Comment(s): arthroscopic shoulder, vocal cord scraping, dariana fundoplasty, CERVICAL FUSSION, recent EGD, colonoscopy. VENTRAL HERNIA. Past Anesthesia/Blood Transfusion Reactions: Blood Transfusion Reaction Additional Past Anesthesia/Blood Transfusion Reaction / Comment(s): ABDOMINAL BLOCK DID NOT HELP WITH PAIN ??? TRANSFUSIONS WITH GASTRIC ULCER Past Psychological History: Anxiety, Depression Smoking Status: Current every day smoker Past Alcohol Use History: None Reported Past Drug Use History: None Reported - Past Family History Mother History Unknown: Yes Family Medical History: Cancer Father Family Medical History: Unable to Obtain General Exam Limitations: no limitations General appearance: alert, in no apparent distress Head exam: Present: atraumatic, normocephalic Eye exam: Present: normal appearance, PERRL ENT exam: Present: normal exam Neck exam: Present: normal inspection. Absent: tenderness, meningismus Respiratory exam: Present: normal lung sounds bilaterally. Absent: respiratory distress, wheezes Cardiovascular Exam: Present: regular rate, normal rhythm GI/Abdominal exam: Present: soft. Absent: distended, tenderness, guarding Back exam: Present: tenderness (Mid upper back) Neurological exam: Present: alert, oriented X3, CN II-XII intact. Absent: motor sensory deficit Skin exam: Present: warm, dry, intact Course Vital Signs 11/10/23 11/10/23 14:59 15:08 Temperature 98.0 F Pulse Rate 83 Respiratory 20 20 Rate Blood Pressure 132/82 O2 Sat by Pulse 100 Oximetry Medical Decision Making - Medical Decision Making Was pt. sent in by a medical professional or institution ([facility], [employer], urgent care, hospital, or assisted...) When possible be specific @ -No Did you speak to anyone other than the patient for history (EMS, parent, family, police, friend...)? What history was obtained from this source @ -No Did you review nursing and triage notes (agree or disagree)? Why? @ -I reviewed and agree with nursing and triage notes Were old charts reviewed (outside hosp., previous admission, EMS record, old EKG, old radiological studies, urgent care reports/EKG's, assisted records)? Report findings @ -No old charts were reviewed Differential Diagnosis (chest pain, altered mental status, abdominal pain women, abdominal pain men, vaginal bleeding, weakness, fever, dyspnea, syncope, headache, dizziness, GI bleed, back pain, seizure, CVA, palpatations, mental health, musculoskeletal)? @ Differential Weakness: Hypoglycemia, shock, sepsis, hyponatremia, anemia, infection, WA, ETOH, adverse medicine reaction, overdose, stroke, this is not meant to be an all-inclusive list. EKG interpreted by me (3pts min.). @ Sinus rhythm rate of 82, KS interval 118, QRS duration 88, QTC [address] segment elevation X-rays interpreted by me (1pt min.). @Chest x-ray negative for focal pneumonia or acute findings CT interpreted by me (1pt min.). @ -None done U/S interpreted by me (1pt. min.). @ -None done What testing was considered but not performed or refused? (CT, X-rays, U/S, labs)? Why? @ -None What meds were considered but not given or refused? Why? @ -None Did you discuss the management of the patient with other professionals (professionals i.e. [facility], MA[employer]GER [employer], lab, RT, psych nurse, social professionals, glass scullion, teacher, drug abuse resistance education officer, case work aide)? Give summary @ -[Mason covering for [facility] hospitalists. I discussed case with Dr. Shields, covering for hematology, recommends transfusion. Was smoking cessation discussed for >3mins.? @ -No Was critical care preformed (if so, how long)? @ -No Were there social determinants of health that impacted care today? How? (Homelessness, low income, unemployed, alcoholism, drug addiction, transportation, low edu. Level, literacy, decrease access to med. care, care home, rehab)? @ -No Was there de-escalation of care discussed even if they declined (Discuss DNR or withdrawal of care, Hospice)? DNR status @ -No What co-morbidities impacted this encounter? (DM, HTN, Smoking, COPD, CAD, Cancer, CVA, ARF, Chemo, Hep., AIDS, mental health diagnosis, sleep apnea, morbid obesity)? @ -[Chronic anemia Was patient admitted / discharged? Hospital course, mention meds given and route, prescriptions, significant lab abnormalities, going to OR and other pertinent info. @62-year-old female with worsening weakness, history of anemia and hematological disease of which she is uncertain. Patient's hemoglobin is 5.5. She does require transfusion. She denies melena or rectal bleeding. She will be admitted for evaluation by hematology. And close monitoring. Undiagnosed new problem with uncertain prognosis? @ -No Drug Therapy requiring intensive monitoring for toxicity (Heparin, Nitro, Insulin, Cardizem)? @ -No Were any procedures done? @ -No Diagnosis/symptom? @ -[Weakness, anemia Acute, or Chronic, or Acute on Chronic? @ -Acute on chronic Uncomplicated (without systemic symptoms) or Complicated (systemic symptoms)? @ -Complicated Side effects of treatment? @ -No Exacerbation, Progression, or Severe Exacerbation? @ -No Poses a threat to life or bodily function? How? (Chest pain, [place], WA, pneumonia, PE, COPD, DKA, ARF, appy, cholecystitis, CVA, Diverticulitis, Homicidal, Suicidal, threat to staff... and all critical care pts) @ -[Yes, anemia - Lab Data Result diagrams: 03/09/23 15:36 03/09/23 15:36 Lab Results 03/09/23 03/09/23 03/09/23 Range/Units 15:30 15:36 15:36 WBC 70.0 H* (3.8-10.6) k/uL RBC 1.85 L (3.80-5.40) m/uL Hgb 5.5 L* D (11.4-16.0) gm/dL Hct 19.0 L* (34.0-46.0) % MCV 102.5 H (80.0-100.0) fL MCH 29.5 (25.0-35.0) pg MCHC 28.8 L (31.0-37.0) g/dL RDW 28.1 H (11.5-15.5) % Plt Count 998 H (150-450) k/uL MPV 8.6 Neutrophils % (Manual) 52 % Band Neuts % (Manual) 15 % Lymphocytes % (Manual) 8 % Monocytes % (Manual) 2 % Eosinophils % (Manual) 2 % Basophils % (Manual) 5 % Metamyelocytes % 10 % Myelocytes % 6 % Promyelocytes % 1 % Blast Cells % 1 H* % Neutrophils # (Manual) 46.90 H (1.3-7.7) k/uL Lymphocytes # (Manual) 5.60 H (1.0-4.8) k/uL Monocytes # (Manual) 1.40 H (0-1.0) k/uL Eosinophils # (Manual) 1.40 H (0-0.7) k/uL Basophils # (Manual) 3.50 H (0-0.2) k/uL Metamyelocytes # (Man) 7.00 H (0) k/uL Myelocytes # (Manual) 4.20 H (0) k/uL Promyelocytes # (Man) 0.70 H (0) k/uL Blast Cells # (Man) 0.70 H (0) k/uL Nucleated RBCs 5 H (0-0) /100 WBC Manual Slide Review Performed Polychromasia Present Hypochromasia Marked Poikilocytosis Slight Anisocytosis Marked Microcytosis Slight Macrocytosis Marked A PT 10.4 (10.0-12.5) sec INR 0.9 (<1.2) APTT 22.8 (22.0-30.0) sec Sodium (137-145) mmol/L Potassium (3.5-5.1) mmol/L Chloride (98-107) mmol/L Carbon Dioxide (22-30) mmol/L Anion Gap mmol/L BUN (7-17) mg/dL Creatinine (0.52-1.04) mg/dL Est GFR (CKD-EPI)AfAm (>60 ml/min/1.73 sqM) Est GFR (CKD-EPI)NonAf (>60 ml/min/1.73 sqM) Glucose (74-99) mg/dL Plasma Lactic Acid Avel (0.7-2.0) mmol/L Calcium (8.4-10.2) mg/dL Magnesium (1.6-2.3) mg/dL Total Bilirubin (0.2-1.3) mg/dL AST (14-36) U/L ALT (4-34) U/L Alkaline Phosphatase (38-126) U/L Troponin I (0.000-0.034) ng/mL NT-Pro-B Natriuret Pep pg/mL Total Protein (6.3-8.2) g/dL Albumin (3.5-5.0) g/dL Urine Color Urine Appearance (Clear) Urine pH (5.0-8.0) Ur Specific [place] (1.001-1.035) Urine Protein (Negative) Urine Glucose (UA) (Negative) Urine Ketones (Negative) Urine Blood (Negative) Urine Nitrite (Negative) Urine Bilirubin (Negative) Urine Urobilinogen (<2.0) mg/dL Ur Leukocyte Esterase (Negative) Urine RBC (0-5) /hpf Urine WBC (0-5) /hpf Urine WBC Clumps (None) /hpf Ur Squamous Epith Cells (0-4) /hpf Urine Bacteria (None) /hpf Blood Type B Negative Blood Type Recheck B Neg Bld Type Recheck Status No Antibody Screen NEGATIVE Crossmatch See Detail Spec Expiration Date 03/12/2023 - 232903/09/23 03/09/23 03/09/23 Range/Units 15:36 15:36 15:36 WBC (3.8-10.6) k/uL RBC (3.80-5.40) m/uL Hgb (11.4-16.0) gm/dL Hct (34.0-46.0) % MCV (80.0-100.0) fL MCH (25.0-35.0) pg MCHC (31.0-37.0) g/dL RDW (11.5-15.5) % Plt Count (150-450) k/uL MPV Neutrophils % (Manual) % Band Neuts % (Manual) % Lymphocytes % (Manual) % Monocytes % (Manual) % Eosinophils % (Manual) % Basophils % (Manual) % Metamyelocytes % % Myelocytes % % Promyelocytes % % Blast Cells % % Neutrophils # (Manual) (1.3-7.7) k/uL Lymphocytes # (Manual) (1.0-4.8) k/uL Monocytes # (Manual) (0-1.0) k/uL Eosinophils # (Manual) (0-0.7) k/uL Basophils # (Manual) (0-0.2) k/uL Metamyelocytes # (Man) (0) k/uL Myelocytes # (Manual) (0) k/uL Promyelocytes # (Man) (0) k/uL Blast Cells # (Man) (0) k/uL Nucleated RBCs (0-0) /100 WBC Manual Slide Review Polychromasia Hypochromasia Poikilocytosis Anisocytosis Microcytosis Macrocytosis PT (10.0-12.5) sec INR (<1.2) APTT (22.0-30.0) sec Sodium 138 (137-145) mmol/L Potassium 4.4 (3.5-5.1) mmol/L Chloride 104 (98-107) mmol/L Carbon Dioxide 25 (22-30) mmol/L Anion Gap 9 mmol/L BUN 14 (7-17) mg/dL Creatinine 0.84 (0.52-1.04) mg/dL Est GFR (CKD-EPI)AfAm 87 (>60 ml/min/1.73 sqM) Est GFR (CKD-EPI)NonAf 76 (>60 ml/min/1.73 sqM) Glucose 103 H (74-99) mg/dL Plasma Lactic Acid Avel 1.2 (0.7-2.0) mmol/L Calcium 9.6 (8.4-10.2) mg/dL Magnesium 1.7 (1.6-2.3) mg/dL Total Bilirubin 0.5 (0.2-1.3) mg/dL AST 60 H (14-36) U/L ALT 39 H (4-34) U/L Alkaline Phosphatase 63 (38-126) U/L Troponin I (0.000-0.034) ng/mL NT-Pro-B Natriuret Pep 398 pg/mL Total Protein 6.5 (6.3-8.2) g/dL Albumin 4.0 (3.5-5.0) g/dL Urine Color Yellow Urine Appearance Cloudy H (Clear) Urine pH 5.5 (5.0-8.0) Ur Specific [place] 1.014 (1.001-1.035) Urine Protein Negative (Negative) Urine Glucose (UA) Negative (Negative) Urine Ketones Negative (Negative) Urine Blood Negative (Negative) Urine Nitrite Negative (Negative) Urine Bilirubin Negative (Negative) Urine Urobilinogen <2.0 (<2.0) mg/dL Ur Leukocyte Esterase Large H (Negative) Urine RBC 2 (0-5) /hpf Urine WBC 43 H (0-5) /hpf Urine WBC Clumps Occasional H (None) /hpf Ur Squamous Epith Cells 1 (0-4) /hpf Urine Bacteria Moderate H (None) /hpf Blood Type Blood Type Recheck Bld Type Recheck Status Antibody Screen Crossmatch Spec Expiration Date 03/09/23 Range/Units 15:36 WBC (3.8-10.6) k/uL RBC (3.80-5.40) m/uL Hgb (11.4-16.0) gm/dL Hct (34.0-46.0) % MCV (80.0-100.0) fL MCH (25.0-35.0) pg MCHC (31.0-37.0) g/dL RDW (11.5-15.5) % Plt Count (150-450) k/uL MPV Neutrophils % (Manual) % Band Neuts % (Manual) % Lymphocytes % (Manual) % Monocytes % (Manual) % Eosinophils % (Manual) % Basophils % (Manual) % Metamyelocytes % % Myelocytes % % Promyelocytes % % Blast Cells % % Neutrophils # (Manual) (1.3-7.7) k/uL Lymphocytes # (Manual) (1.0-4.8) k/uL Monocytes # (Manual) (0-1.0) k/uL Eosinophils # (Manual) (0-0.7) k/uL Basophils # (Manual) (0-0.2) k/uL Metamyelocytes # (Man) (0) k/uL Myelocytes # (Manual) (0) k/uL Promyelocytes # (Man) (0) k/uL Blast Cells # (Man) (0) k/uL Nucleated RBCs (0-0) /100 WBC Manual Slide Review Polychromasia Hypochromasia Poikilocytosis Anisocytosis Microcytosis Macrocytosis PT (10.0-12.5) sec INR (<1.2) APTT (22.0-30.0) sec Sodium (137-145) mmol/L Potassium (3.5-5.1) mmol/L Chloride (98-107) mmol/L Carbon Dioxide (22-30) mmol/L Anion Gap mmol/L BUN (7-17) mg/dL Creatinine (0.52-1.04) mg/dL Est GFR (CKD-EPI)AfAm (>60 ml/min/1.73 sqM) Est GFR (CKD-EPI)NonAf (>60 ml/min/1.73 sqM) Glucose (74-99) mg/dL Plasma Lactic Acid Avel (0.7-2.0) mmol/L Calcium (8.4-10.2) mg/dL Magnesium (1.6-2.3) mg/dL Total Bilirubin (0.2-1.3) mg/dL AST (14-36) U/L ALT (4-34) U/L Alkaline Phosphatase (38-126) U/L Troponin I <0.012 (0.000-0.034) ng/mL NT-Pro-B Natriuret Pep pg/mL Total Protein (6.3-8.2) g/dL Albumin (3.5-5.0) g/dL Urine Color Urine Appearance (Clear) Urine pH (5.0-8.0) Ur Specific [place] (1.001-1.035) Urine Protein (Negative) Urine Glucose (UA) (Negative) Urine Ketones (Negative) Urine Blood (Negative) Urine Nitrite (Negative) Urine Bilirubin (Negative) Urine Urobilinogen (<2.0) mg/dL Ur Leukocyte Esterase (Negative) Urine RBC (0-5) /hpf Urine WBC (0-5) /hpf Urine WBC Clumps (None) /hpf Ur Squamous Epith Cells (0-4) /hpf Urine Bacteria (None) /hpf Blood Type Blood Type Recheck Bld Type Recheck Status Antibody Screen Crossmatch Spec Expiration Date Disposition Clinical Impression: Leukocytosis, Anemia Disposition: ADMITTED IP TO THIS HOSP Condition: Stable Is patient prescribed a controlled substance at d/c from ED?: No Time of Disposition: 17:21
[2023-03-09 16:01] LABS: ALT 39 U/L (4-34); AST 60 U/L (14-36); African American GFR (CKD) 87 (>60 ml/min/1.73 sqM); Alkaline Phosphatase 63 U/L (38-126); Anion Gap 9 mmol/L; Anisocytosis Marked; Blood Urea Nitrogen 14 mg/dL (7-17); Calcium 9.6 mg/dL (8.4-10.2); Carbon Dioxide 25 mmol/L (22-30); Chloride 104 mmol/L (98-107); Glucose 103 mg/dL (74-99); Hypochromasia Marked; MCH 29.5 pg (25.0-35.0); MCHC 28.8 g/dL (31.0-37.0); MCV 102.5 fL (80.0-100.0); Macrocytosis Marked; Magnesium 1.7 mg/dL (1.6-2.3); Mean Platelet Volume 8.6; Microcytosis Slight; Non-African American GFR(CKD) 76 (>60 ml/min/1.73 sqM); Platelet Count 998 k/uL (150-450); Poikilocytosis Slight; Potassium 4.4 mmol/L (3.5-5.1); RBC 1.85 m/uL (3.80-5.40); Sodium 138 mmol/L (137-145); Total Bilirubin 0.5 mg/dL (0.2-1.3); Total Protein 6.5 g/dL (6.3-8.2)
[2023-03-09 16:03] LABS: RDW 28.1 % (11.5-15.5)
[2023-03-09 16:06] LABS: HGB 5.5 gm/dL (11.4-16.0)
[2023-03-09 16:09] LABS: NT-Pro-B-Type Natriuretic Pept 398 pg/mL
[2023-03-09 16:16] LABS: INR 0.9 (<1.2); Partial Thromboplastin Time 22.8 sec (22.0-30.0); Prothrombin Time 10.4 sec (10.0-12.5)
[2023-03-09] MEDS ORDERED: PANTOPRAZOLE 40 MG/10 ML VIAL IVP STA (16:25)
--- NOTE | 2023-03-09 16:27 | XR ---
EXAMINATION TYPE: XR chest 2V DATE OF EXAM: 03/09/2023 4:15 PM CLINICAL INDICATION:Female, 62 years old with history of Weakness; [facility] COMPARISON: 07/17/2017 TECHNIQUE: XR chest 2V Frontal and lateral views of the chest. FINDINGS: Lines/Tubes: No indwelling lines are seen. Lungs/Pleura: There is no evidence of pleural effusion, focal consolidation, or pneumothorax. Mildly hyperinflated lungs as before, could be related to COPD. Nipple shadow suggested on the left. Pulmonary vascularity: Unremarkable. Heart/mediastinum: Cardiomediastinal silhouette is unremarkable. Heart is not enlarged. Musculoskeletal: No acute osseous pathology. Mild degenerative changes of the spine with straightened lordosis and mild apex right scoliosis. ACDF hardware in the lower cervical region. Other findings: None IMPRESSION: No acute cardiopulmonary disease/process.
[2023-03-09 16:35] LABS: Band Neutrophils % 15 %; Metamyelocytes % 10 %; Myelocytes % 6 %; Neutrophils % (M) 52 %; Promyelocytes % 1 %
[2023-03-09 16:36] LABS: Nucleated Red Blood Cells 5 /100 WBC (0-0); Total Cells Counted 200
[2023-03-09 16:44] LABS: Polychromasia Present
[2023-03-09] MEDS ORDERED: ACETAMINOPHEN TAB 325 MG TAB PO PRN (16:47)
[2023-03-09] MEDS ORDERED: NALOXONE 0.4 MG/ML 1 ML VIAL IV PRN (16:47)
[2023-03-09] MEDS ORDERED: FUROSEMIDE 10 MG/ML 2 ML VIAL IV ONE (16:49)
[2023-03-09 17:21] LABS: Appearance,Urine Cloudy (Clear); Bacteria,Urine Moderate /hpf; Bilirubin,Urine Negative (Negative); Blood,Urine Negative (Negative); Color,Urine Yellow; Glucose,Urine (UA) Negative (Negative); Ketones,Urine Negative (Negative); Leukocyte Esterase,Urine Large (Negative); Nitrite,Urine Negative (Negative); PH, Urine 5.5 (5.0-8.0); Protein,Urine Negative (Negative); RBC,Urine 2 /hpf (0-5); Specific Gravity,Urine 1.014 (1.001-1.035); Squamous Epithelial Cell,Urine 1 /hpf (0-4); Urobilinogen,Urine <2.0 mg/dL (<2.0); WBC,Urine 43 /hpf (0-5)
[2023-03-09] MEDS: HYDROcodone/APAP 7.5-325MG 1 EACH TAB PO SCH ×2 (17:28→19:54)
[2023-03-09] MEDS: GABAPENTIN 400 MG CAP PO SCH (19:54)
[2023-03-10] MEDS: GABAPENTIN 400 MG CAP PO SCH ×3 (08:55→22:20)
[2023-03-10] MEDS: HYDROcodone/APAP 7.5-325MG 1 EACH TAB PO SCH (08:55)
[2023-03-10] MEDS ORDERED: PANTOPRAZOLE 40 MG/10 ML VIAL IV SCH (09:00)
[2023-03-10] MEDS ORDERED: ONDANSETRON ODT 4 MG TAB PO PRN (09:09)
[2023-03-10] MEDS ORDERED: LACTULOSE 20 GM/30 ML CUP PO PRN (09:09)
--- NOTE | 2023-03-10 09:19 | P.HPIM ---
History of Present Illness This is 62-year-old female, reports she follows with hematology, Dr. 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 She states that her back pain is now a little better about 60/10 nonspecific, nonradiating although sometimes goes to the front. She feels weak in both lower extremities but this looks symmetrical, no tingling or numbness, no saddle anesthesia. She denies urine or bowel incontinence. She has chronic urine urgency that she has been discussed with her PCP before. She has also chronic increased frequency of urination She denies diarrhea, she had loose bowel movement a few days ago but last bowel movement was yesterday and was formed, no significant pain or tenderness, no vomiting. She denies coughing, no chest pain, mild headache or dizziness, no weakness or numbness. She denies falling. She takes aspirin every other days and her organisation and methods analyst Dr. Dawkins. Her hydroxyurea which she takes for high platelet count. Review of Systems Review of systems CONSTITUTIONAL: No fever, no malaise, no fatigue. HEENT: No recent visual problems or hearing problems. Denied any sore throat. CARDIOVASCULAR: No orthopnea, PND, no palpitations, no syncope. PULMONARY: no cough, no hemoptysis. GASTROINTESTINAL: No diarrhea, no nausea, no vomiting,. Normoactive bowel sounds. NEUROLOGICAL: No headaches, no weakness, no numbness. HEMATOLOGICAL: Denies any bleeding or petechiae. GENITOURINARY: Denies any burning micturition, no hematuria MUSCULOSKELETAL/RHEUMATOLOGICAL: Denies any joint pain, swelling, or any muscle pain. ENDOCRINE: Denies any polyuria or polydipsia. Past Medical History Past Medical History: GERD/Reflux, Pneumonia, Rheumatoid Arthritis (RA) Additional Past Medical History / Comment(s): IP ADMISSION FORGASTRIC ULCER IN MAY 2022 WITH HIGH PLATELET & WHITE COUNT THROMBYTOSIS- (SEES DR DAWKINS). COPD, leukoplakia of the vocal cords, chronic shoulder back and neck pain, acid reflux, depression, raynaud's syndrome. takes aldactone for hair loss. History of Any Multi-Drug Resistant Organisms: MRSA Date of last positivie culture/infection: 05/03/19 MDRO Source:: MRSA FACE Past Surgical History: Back Surgery, Cholecystectomy, Hernia Repair, Orthopedic Surgery, Tonsillectomy Additional Past Surgical History / Comment(s): arthroscopic shoulder, vocal cord scraping, dariana fundoplasty, CERVICAL FUSSION, recent EGD, colonoscopy. VENTRAL HERNIA. Past Anesthesia/Blood Transfusion Reactions: Blood Transfusion Reaction Additional Past Anesthesia/Blood Transfusion Reaction / Comment(s): TRANSFUSIONS WITH GASTRIC ULCER Past Psychological History: Anxiety, Depression Smoking Status: Current every day smoker Past Alcohol Use History: None Reported Additional Past Alcohol Use History / Comment(s): smoked <ppd since age of 20. started smoking again recently, says 1 pack will last her 3days. Past Drug Use History: None Reported - Past Family History Mother History Unknown: Yes Family Medical History: Cancer Father Family Medical History: Unable to Obtain Medications and Allergies Home Medications Medication Instructions Recorded Confirmed Type Gabapentin 800 mg PO TID 05/01/14 03/09/23 History Topiramate 100 mg PO BID 05/01/14 03/09/23 History HYDROcodone/APAP 7.5-325MG [[place] 1 tab PO QID 03/11/16 03/09/23 History 7.5-325] Baclofen [Lioresal] 20 mg PO HS 07/02/17 03/09/23 History Sertraline [Zoloft] 50 mg PO DAILY 07/02/17 03/09/23 History buPROPion XL [Wellbutrin XL] 150 mg PO BID 07/02/17 03/09/23 History Multivit with Calcium,Iron,Min 1 tab PO DAILY 10/21/19 03/09/23 History [Women's Multivitamin] Spironolactone [Aldactone] 25 mg PO W/SUPPER 12/21/21 03/09/23 History Aspirin [Adult Low Dose Aspirin EC] 81 mg PO Q48H 06/07/22 03/09/23 History Omeprazole [PriLOSEC] 20 mg PO AC-BRKFST #90 cap 06/09/22 03/09/23 Rx Hydroxyurea 500 mg PO DAILY 09/20/22 03/09/23 History Clindamycin Phosphate 1 applic TOPICAL BID 01/16/23 03/09/23 History Tretinoin [Tretinoin 0.025%] 1 applic TOPICAL HS 01/16/23 03/09/23 History Lactulose [Cephulac] 30 gm PO BID PRN #600 ml 01/20/23 03/09/23 Rx Ondansetron Odt [Zofran Odt] 4 mg PO Q6H PRN 03/09/23 03/09/23 History Allergies Allergy/AdvReac Type Severity Reaction Status Date / Time metronidazole [From Flagyl] Allergy Itching, Verified 01/16/23 22:47 BURNING OF SKIN Physical Exam Vitals: Vital Signs Temp Pulse Pulse Resp BP BP Pulse Ox 03/10/23 07:57 98 03/10/23 05:57 97.8 F 80 17 102/64 95 03/10/23 05:38 97.8 F 79 17 102/63 94 L 03/10/23 05:37 97.8 F 79 17 102/63 94 L 03/10/23 05:28 97.8 F 78 17 99/62 94 L 03/10/23 05:04 97.6 F 77 17 95/55 96 03/10/23 03:24 98.1 F 81 17 109/63 97 03/10/23 03:04 98.1 F 81 16 94/52 95 03/10/23 02:54 98.1 F 91 16 90/48 97 03/10/23 00:00 98.0 F 91 19 103/62 97 03/09/23 20:00 98.0 F 90 19 105/64 100 03/09/23 18:52 98.1 F 88 16 122/72 100 03/09/23 18:33 98.0 F 82 18 129/82 98 03/09/23 17:07 97 19 132/78 99 03/09/23 15:08 20 03/09/23 14:59 98.0 F 83 20 132/82 100 Intake and Output 03/09/23 03/10/23 03/10/23 22:59 06:59 14:59 Intake Total 310 Balance 310 Intake: Blood Product 310 Rc Irr As1 Unit 310 [id number] Rc Irr As1 Unit 0 [id number] Other: Voiding Method Toilet Toilet # Voids 3 Weight 45.359 kg GENERAL: The patient is alert and oriented x3, not in any acute distress. Well developed, well nourished. HEENT: Pupils are round and equally reacting to light. EOMI. No scleral icterus. No conjunctival pallor. Normocephalic, atraumatic. No pharyngeal erythema. No thyromegaly. CARDIOVASCULAR: S1 and S2 present. No murmurs, rubs, or gallops. PULMONARY: Chest is clear to auscultation, no wheezing , no crackles. ABDOMEN: Soft, nontender, nondistended, normoactive bowel sounds. No palpable organomegaly. MUSCULOSKELETAL: No joint swelling or deformity. EXTREMITIES: No cyanosis, clubbing, or pedal edema. NEUROLOGICAL: Gross neurological examination did not reveal any focal deficits. SKIN: No rashes. no petechiae. Results CBC & Chem 7: 03/09/23 15:36 03/09/23 15:36 Labs: Abnormal Lab Results - Last 24 Hours (Table) 03/09/23 03/09/23 03/09/23 Range/Units 15:30 15:36 15:36 WBC 70.0 H* (3.8-10.6) k/uL RBC 1.85 L (3.80-5.40) m/uL Hgb 5.5 L* D (11.4-16.0) gm/dL Hct 19.0 L* (34.0-46.0) % MCV 102.5 H (80.0-100.0) fL MCHC 28.8 L (31.0-37.0) g/dL RDW 28.1 H (11.5-15.5) % Plt Count 998 H (150-450) k/uL Blast Cells % 1 H* % Neutrophils # (Manual) 46.90 H (1.3-7.7) k/uL Lymphocytes # (Manual) 5.60 H (1.0-4.8) k/uL Monocytes # (Manual) 1.40 H (0-1.0) k/uL Eosinophils # (Manual) 1.40 H (0-0.7) k/uL Basophils # (Manual) 3.50 H (0-0.2) k/uL Metamyelocytes # (Man) 7.00 H (0) k/uL Myelocytes # (Manual) 4.20 H (0) k/uL Promyelocytes # (Man) 0.70 H (0) k/uL Blast Cells # (Man) 0.70 H (0) k/uL Nucleated RBCs 5 H (0-0) /100 WBC Macrocytosis Marked A Glucose (74-99) mg/dL AST (14-36) U/L ALT (4-34) U/L Urine Appearance Cloudy H (Clear) Ur Leukocyte Esterase Large H (Negative) Urine WBC 43 H (0-5) /hpf Urine WBC Clumps Occasional H (None) /hpf Urine Bacteria Moderate H (None) /hpf Crossmatch See Detail 03/09/23 Range/Units 15:36 WBC (3.8-10.6) k/uL RBC (3.80-5.40) m/uL Hgb (11.4-16.0) gm/dL Hct (34.0-46.0) % MCV (80.0-100.0) fL MCHC (31.0-37.0) g/dL RDW (11.5-15.5) % Plt Count (150-450) k/uL Blast Cells % % Neutrophils # (Manual) (1.3-7.7) k/uL Lymphocytes # (Manual) (1.0-4.8) k/uL Monocytes # (Manual) (0-1.0) k/uL Eosinophils # (Manual) (0-0.7) k/uL Basophils # (Manual) (0-0.2) k/uL Metamyelocytes # (Man) (0) k/uL Myelocytes # (Manual) (0) k/uL Promyelocytes # (Man) (0) k/uL Blast Cells # (Man) (0) k/uL Nucleated RBCs (0-0) /100 WBC Macrocytosis Glucose 103 H (74-99) mg/dL AST 60 H (14-36) U/L ALT 39 H (4-34) U/L Urine Appearance (Clear) Ur Leukocyte Esterase (Negative) Urine WBC (0-5) /hpf Urine WBC Clumps (None) /hpf Urine Bacteria (None) /hpf Crossmatch Thrombosis Risk Factor Assmnt - Choose All That Apply Any of the Below Risk Factors Present?: Yes Each Factor Represents 1 point: Age 41-60 years Thrombosis Risk Factor Assessment Total Risk Factor Score: 1 Thrombosis Risk Factor Assessment Level: Low Risk Assessment and Plan Assessment: Severe anemia, status post one unit of blood transfusion, recent w/r showed KUMAR Leukocytosis and thrombocytosis Recent history of suspected Acute GI bleed with dark stools, however EGD showing only mild antral gastritis Thoracic back pain and tenderness History of COPD, not an exacerbation Hypertension GERD Rheumatoid arthritis History of anxiety/depression Continued ongoing nicotine dependence Moderate calorie protein malnutrition Plan: Monitor hemoglobin Hold aspirin for now Continue with Protonix twice a day Consults orthopedic team consultant technology for her back pain and tenderness Pain management check inflammatory markers of ESR, CRP and procalcitonin, no fever, no strong evidence of infection, hold for any antibiotic for now Dietary consult Labs and medication were reviewed.. Continue same treatment. Continue with symptomatic treatment. Resume home medication. Monitor labs and vitals. DVT and GI prophylaxis. Further recommendations as per clinical course of the patient DVT prophylaxis: no Subcutaneous heparin, in view of her anemia GI Prophylaxis: Ppi PT/OT: Pending Prognosis is guarded
[2023-03-10] MEDS ORDERED: LIDOCAINE 4% PATCH TP SCH (09:45)
--- NOTE | 2023-03-10 10:56 | P.CNOR ---
History of Present Illness - [facility] Consult date: 03/10/23 Consult reason: back pain, neck pain History of present illness: This is a 62-year-old female admitted with severe upper back pain with no recent trauma or injury. She has a known history of a blood disorder and has had several transfusions in the last few months for anemia. She states that she was found to have a GI bleed no longer go. She has history of cervical fusion in the past. She also sees Dr. Jarvis for severe arthritis of her right shoulder and is in need of a shoulder replacement. She states that she has not been able to follow-up with Dr. Jarvis due to her recent illnesses and complications from her blood disorder. She states that over the past week her upper back pain has become severe. She's been unable to sleep. She states that the pain radiates from between her shoulder blades and around the back of her chest. She states that her hands are numb all of the time which is not new. We are consulted for orthopedic spine evaluation. Past Medical History Past Medical History: GERD/Reflux, Pneumonia, Rheumatoid Arthritis (RA) Additional Past Medical History / Comment(s): IP ADMISSION FORGASTRIC ULCER IN MAY 2022 WITH HIGH PLATELET & WHITE COUNT THROMBYTOSIS- (SEES DR REBOLLEDO). COPD, leukoplakia of the vocal cords, chronic shoulder back and neck pain, acid reflux, depression, raynaud's syndrome. takes aldactone for hair loss. History of Any Multi-Drug Resistant Organisms: MRSA Year Discovered:: 05/03/19 MDRO Source:: MRSA FACE Past Surgical History: Back Surgery, Cholecystectomy, Hernia Repair, Orthopedic Surgery, Tonsillectomy Additional Past Surgical History / Comment(s): arthroscopic shoulder, vocal cord scraping, dariana fundoplasty, CERVICAL FUSSION, recent EGD, colonoscopy. VENTRAL HERNIA. Past Anesthesia/Blood Transfusion Reactions: Blood Transfusion Reaction Additional Past Anesthesia/Blood Transfusion Reaction / Comm: TRANSFUSIONS WITH GASTRIC ULCER Past Psychological History: Anxiety, Depression Smoking Status: Current every day smoker Past Alcohol Use History: None Reported Additional Past Alcohol Use History / Comment(s): smoked <ppd since age of 20. started smoking again recently, says 1 pack will last her 3days. Past Drug Use History: None Reported - Past Family History Mother History Unknown: Yes Family Medical History: Cancer Father Family Medical History: Unable to Obtain Medications and Allergies Home Medications Medication Instructions Recorded Confirmed Type Gabapentin 800 mg PO TID 05/01/14 03/09/23 History Topiramate 100 mg PO BID 05/01/14 03/09/23 History HYDROcodone/APAP 7.5-325MG [[place] 1 tab PO QID 03/11/16 03/09/23 History 7.5-325] Baclofen [Lioresal] 20 mg PO HS 07/02/17 03/09/23 History Sertraline [Zoloft] 50 mg PO DAILY 07/02/17 03/09/23 History buPROPion XL [Wellbutrin XL] 150 mg PO BID 07/02/17 03/09/23 History Multivit with Calcium,Iron,Min 1 tab PO DAILY 10/21/19 03/09/23 History [Women's Multivitamin] Spironolactone [Aldactone] 25 mg PO W/SUPPER 12/21/21 03/09/23 History Aspirin [Adult Low Dose Aspirin EC] 81 mg PO Q48H 06/07/22 03/09/23 History Omeprazole [PriLOSEC] 20 mg PO AC-BRKFST #90 cap 06/09/22 03/09/23 Rx Hydroxyurea 500 mg PO DAILY 09/20/22 03/09/23 History Clindamycin Phosphate 1 applic TOPICAL BID 01/16/23 03/09/23 History Tretinoin [Tretinoin 0.025%] 1 applic TOPICAL HS 01/16/23 03/09/23 History Lactulose [Cephulac] 30 gm PO BID PRN #600 ml 01/20/23 03/09/23 Rx Ondansetron Odt [Zofran Odt] 4 mg PO Q6H PRN 03/09/23 03/09/23 History Allergies Allergy/AdvReac Type Severity Reaction Status Date / Time metronidazole [From Flagyl] Allergy Itching, Verified 01/16/23 22:47 BURNING OF SKIN Physical Examination This is a pleasant 62-year-old female in no acute distress. She is sitting up in bed and appears fairly comfortable. Exam of the head and neck reveal no obvious deformity. She has a well-healed scar to the anterior neck. She has fairly good cervical rotation without pain. There is minimal pain with palpation about cervical spine. Exam of the thoracic spine reveals no obvious deformity. There is distinct tenderness over the upper to mid thoracic spine with palpation and significant tenderness with percussion of the spine. She is nontender over the lower thoracic and lumbar spine. There is mild thoracic paravertebral musculature tenderness. There is pain with compression of her chest laterally. Exam of the upper extremities reveals limited range of motion of the right shoulder. Full elbow, wrist and finger motion. There is slight limitation to the left shoulder. Full elbow, wrist and finger motion. Neurovascular status to the upper extremities is grossly intact. Exam of the lower extremities reveals no obvious deformity. She has full motion to the knees and foot and ankle bilaterally. Neurovascular status to the lower extremities is intact. Results - Labs Labs: Abnormal Lab Results - Last 24 Hours (Table) 03/09/23 03/09/23 03/09/23 Range/Units 15:30 15:36 15:36 WBC 70.0 H* (3.8-10.6) k/uL RBC 1.85 L (3.80-5.40) m/uL Hgb 5.5 L* D (11.4-16.0) gm/dL Hct 19.0 L* (34.0-46.0) % MCV 102.5 H (80.0-100.0) fL MCHC 28.8 L (31.0-37.0) g/dL RDW 28.1 H (11.5-15.5) % Plt Count 998 H (150-450) k/uL Blast Cells % 1 H* % Neutrophils # (Manual) 46.90 H (1.3-7.7) k/uL Lymphocytes # (Manual) 5.60 H (1.0-4.8) k/uL Monocytes # (Manual) 1.40 H (0-1.0) k/uL Eosinophils # (Manual) 1.40 H (0-0.7) k/uL Basophils # (Manual) 3.50 H (0-0.2) k/uL Metamyelocytes # (Man) 7.00 H (0) k/uL Myelocytes # (Manual) 4.20 H (0) k/uL Promyelocytes # (Man) 0.70 H (0) k/uL Blast Cells # (Man) 0.70 H (0) k/uL Nucleated RBCs 5 H (0-0) /100 WBC Macrocytosis Marked A Glucose (74-99) mg/dL AST (14-36) U/L ALT (4-34) U/L Urine Appearance Cloudy H (Clear) Ur Leukocyte Esterase Large H (Negative) Urine WBC 43 H (0-5) /hpf Urine WBC Clumps Occasional H (None) /hpf Urine Bacteria Moderate H (None) /hpf Crossmatch See Detail 03/09/23 Range/Units 15:36 WBC (3.8-10.6) k/uL RBC (3.80-5.40) m/uL Hgb (11.4-16.0) gm/dL Hct (34.0-46.0) % MCV (80.0-100.0) fL MCHC (31.0-37.0) g/dL RDW (11.5-15.5) % Plt Count (150-450) k/uL Blast Cells % % Neutrophils # (Manual) (1.3-7.7) k/uL Lymphocytes # (Manual) (1.0-4.8) k/uL Monocytes # (Manual) (0-1.0) k/uL Eosinophils # (Manual) (0-0.7) k/uL Basophils # (Manual) (0-0.2) k/uL Metamyelocytes # (Man) (0) k/uL Myelocytes # (Manual) (0) k/uL Promyelocytes # (Man) (0) k/uL Blast Cells # (Man) (0) k/uL Nucleated RBCs (0-0) /100 WBC Macrocytosis Glucose 103 H (74-99) mg/dL AST 60 H (14-36) U/L ALT 39 H (4-34) U/L Urine Appearance (Clear) Ur Leukocyte Esterase (Negative) Urine WBC (0-5) /hpf Urine WBC Clumps (None) /hpf Urine Bacteria (None) /hpf Crossmatch H & H 03/09/23 Range/Units 15:36 Hgb 5.5 L* D (11.4-16.0) gm/dL Hct 19.0 L* (34.0-46.0) % Coagulation 03/09/23 Range/Units 15:36 INR 0.9 (<1.2) Result Diagrams: 03/09/23 15:36 03/09/23 15:36 Assessment and Plan (1) Back pain Current Visit: Yes Status: Acute Code(s): M54.9 - DORSALGIA, UNSPECIFIED SNOMED Code(s): 008535830 (2) Anemia Current Visit: Yes Status: Acute Priority: High Code(s): D64.9 - ANEMIA, UNSPECIFIED SNOMED Code(s): 029737109 Plan: The clinical findings are discussed with the patient. Her findings are suspicious for a compression fracture. I have ordered x-rays of the cervical and thoracic spine. We will follow-up once x-rays are available and make further recommendations as indicated.
[2023-03-10 11:09] VITALS: BMI 16.6
--- NOTE | 2023-03-10 12:23 | XR ---
EXAMINATION TYPE: XR cervical spine comp DATE OF EXAM: 03/10/2023 12:02 PM CLINICAL INDICATION:Female, 62 years old with history of Neck and back pain; [facility] COMPARISON: 11/10/2009. TECHNIQUE: The cervical spine was imaged in frontal, lateral, odontoid and bilateral oblique. FINDINGS: Post fixation changes to the cervical spine hardware appears intact. There appears to be fu katt of the C5-C6 and nonfusion of C3-C4 and C4-C5. The osseous structures show normal alignment with out evidence of an acute fracture. No significant vertebral body osteophytes or facet joint arthropat hy. The intervertebral disk spaces are preserved. Pedicles are intact. Soft tissues are within mariana l limits. The odontoid appears intact. IMPRESSION: 1. No fracture or dislocation. 2. Postsurgical changes with degenerative disc disease changes of the cervical spine.
--- NOTE | 2023-03-10 12:26 | XR ---
EXAMINATION TYPE: XR thoracic spine complete DATE OF EXAM: 03/10/2023 12:09 PM CLINICAL INDICATION:Female, 62 years old with history of Neck and back pain; COMPARISON: 03/10/2023. 01/16/2023 CT TECHNIQUE: XR thoracic spine complete views of the thoracic spine in Frontal and lateral projections. FINDINGS: No evidence of acute fracture. Mild wedging of the T12 vertebrae similar prior CT. There is scattered multilevel disk space narrowing without loss of vertebral body height. There is scoliosis alignment of the thoracic vertebral bodies. Scattered osteophyte formation along the anterior and lateral aspec ts of the vertebral bodies. Neural foramen are patent given limitations of this exam. Spinal canal ap pears patent. Atherosclerosis of the arterial vasculature. IMPRESSION: 1. Mild wedging of the T12 vertebrae similar prior. No acute osseous pathology. 2. Mild to moderate multilevel degeneration changes throughout the spine.
[2023-03-10 12:44] LABS: Anisocytosis Marked; HCT 27.7 % (34.0-46.0); Hypochromasia Marked; MCHC 30.7 g/dL (31.0-37.0); Macrocytosis Moderate; Mean Platelet Volume 8.1; Platelet Count 811 k/uL (150-450); Poikilocytosis Moderate; RBC 2.87 m/uL (3.80-5.40); RDW 24.7 % (11.5-15.5)
[2023-03-10] MEDS: LIDOCAINE 5% PATCH TOPICAL SCH (12:54)
[2023-03-10] MEDS: buPROPion XL 300 MG TAB.ER.24H PO SCH (12:55)
[2023-03-10] MEDS: TOPIRAMATE 100 MG TAB PO SCH ×2 (12:55→22:20)
[2023-03-10] MEDS: FERROUS SULFATE 325 MG TAB PO SCH ×2 (12:55→17:03)
[2023-03-10] MEDS: SERTRALINE 50 MG TAB PO SCH (12:55)
[2023-03-10 12:57] LABS: HGB 8.5 gm/dL (11.4-16.0); MCV 96.4 fL (80.0-100.0)
[2023-03-10 12:58] LABS: MCH 29.6 pg (25.0-35.0)
[2023-03-10 13:23] LABS: African American GFR (CKD) 79 (>60 ml/min/1.73 sqM); Anion Gap 6 mmol/L; Blood Urea Nitrogen 12 mg/dL (7-17); Calcium 8.9 mg/dL (8.4-10.2); Carbon Dioxide 26 mmol/L (22-30); Chloride 107 mmol/L (98-107); Glucose 75 mg/dL (74-99); Non-African American GFR(CKD) 69 (>60 ml/min/1.73 sqM); Potassium 4.1 mmol/L (3.5-5.1); Sodium 139 mmol/L (137-145)
[2023-03-10 13:33] LABS: Band Neutrophils % 13 %; Metamyelocytes % 9 %; Myelocytes % 7 %; Neutrophils % (M) 54 %
[2023-03-10 13:36] LABS: Basophils # (M) 0.57 k/uL (0-0.2); Blast Cells # (M) 1.14 k/uL (0); Eosinophils # (M) 1.14 k/uL (0-0.7); Lymphocytes # (M) 6.27 k/uL (1.0-4.8); Metamyelocytes # (M) 5.13 k/uL (0); Monocytes # (M) 1.14 k/uL (0-1.0); Myelocytes # (M) 3.99 k/uL (0); Nucleated Red Blood Cells 8 /100 WBC (0-0); Total Cells Counted 200
--- NOTE | 2023-03-10 16:17 | P.CONS ---
History of Present Illness - Reason for Consult Consult date: 03/10/23 History of thrombocytosis, ?transformation, severe anemia Requesting physician: Jame E Sheet - Chief Complaint Excessive weakness, difficulty in breathing, and leg swelling - History of Present Illness Ms. Pickard is a very pleasant 62 yo female with history of multiple comorbidities including MPN, ET, was on hydrea however this has been on hold due to anemia, as well as gastric ulcer treated with PPI in 06/2022, repeat EGD from 08/2022 negative. She comes in for increased fatigue, found to have Hgb 5.5, WBC 70, 1% blasts, plt 998. Differential with all lines increased including promyelocytes and metamyelocytes. CMP normal. Coag's normal. She was transfused and admitted for further monitoring. Repeat CBC with WBC 57, Hgb 8.5, plt 811, 2% blasts. States that she has been excessively fatigued for the past several weeks last couple months. She was hospitalized in 12/2022 for symptomatic anemia, EGD unremarkable for any source of bleeding with healed ulcer. She subsequently developed Covid infection soon after discharge and has had severe fatigue since then. She was prescribed a Medrol Dosepak just prior to being seen in our clinic on 02/27/23 and felt a little bit better. Hemoglobin at that time was above 7. After about a week, the last few days, she has had recurrent difficult weakness, difficulty in breathing, this again exertion, and leg swelling which prompted her ER visit. Feels a little bit better after transfusion now however she continues to have epigastric/left upper quadrant abdominal pain and nausea. Hematologic history: Ms Pickard is a pleasant white female, was referred here due to blood dyscrasias. She follows with Dr. Dawkins. The patient actually had had multiple complaints for over a period of 2 years, consisting of fatigue, multiple areas of bone and joint pains, GI complaints, urinary frequency and Raynaud's-type phenomenon. She was referred to rheumatology, and had extensive workup done on 09/20/21. This revealed Rheumatoid factor positive at a titer of greater than 100 as well as C-ANCA positivity. CBC showed WBC 12.7 with predominant neutrophils. Platelets were elevated at 747. the patient denied any prior history of blood related problems or cancer though she stated that she was subsequently told by her PCP that platelets had been elevated previously although to a lesser degree. She has no history of any arterial or venous thrombosis or unusual bleeding Based on her history a reactive phenomenon and was felt to be more likely. She had MPN related mutations tested, which were all negative. however it was felt that given the degree of platelet elevation and underlying essential thromb o-cytosis could not be ruled out. She was therefore started on baby aspirin. she was started on hydroxychloroquine by Rheumatology but was unable to tolerate it and was therefore switched to an infusion The patient was started on Hydrea 500 mg once a day at her visit in 03/21 as her platelets had increased to > 1000. The case was discussed with rheumatology, who indicated that clinically the patient did not appear to have any increase in her autoimmune inflammation. After about 2 weeks on the Hydrea, the patient had called with multiple complaints, including dizziness, headaches, and some acneform skin rash. She was therefore instructed to hold the Hydrea. On follow-up on 04/14/22, the patient indicated that she has not noted much improvement in her symptoms despite stopping the Hydrea. She therefore resumed on it at that visit, at 500 mg every other day at her visit in 05/22, she was advised to increase the dose to once a day as she appeared to be tolerating it well. She was admitted in early 06/22 with severe anemia, which was subsequently found to be due to upper GI blood loss from an ulcer, on endoscopy. At the time she stated that she had actually been taking the Hydrea very infrequently since her visit in 05/22. She received IV iron inpatient. Due to severe anemia and recent GI bleed from ulcer, both Hydrea and aspirin were held at the time of her discharge. She was discharged on PPI. She received blood transfusion as well as IV iron inpat ient. She received additional IV an outpatient on 06/29/22 she was then started back on aspirin, which she tolerated well. Hydrea was resumed at 500 mg once a day after her visit in late 08/20. Labs done about 2 weeks later showed response with platelets down to 1197 from 1400+ the patient had EGD and colonoscopy in late 09/19, showing of the resolution of the ulcer. She states that she stopped the Hydrea for the procedure, because of the prep. She then was diagnosed with a UTI, and continue to stay off the Hydrea, as she was nauseous. She resumed Hydrea after her visit in early 10/20. She claims good compliance since she was advised to increase the Hydrea to twice a day alternating with once a day after her visit on 11/27/22. She states that she switch back to once a day, around week 3 of 12/20, as she was experiencing increased fatigue, nausea and abdominal discomfort with the twice a day dosing. However the patient had also stopped taking Prilosec. she was also off the Hydrea for about 3-4 days in week 1 of 01/20, as she had run out of her prescription. 01/31/23-Pt here today for hospital f/u, in [facility] 01/16-01/20 for abd pain, dark stool, N,V, CT AP reported mild fecal retention, diverticulosis rt renal stone, EGD wtih Dr. Alexis showed antral gastritis, path neg, she received 2 units PRBCs, Hgb 8.1 on DC, Hgb 8 today. Hydrea was held, plt remained elevated inpt, asa was held too. She is doing ok since DC, no bleeding to report. She c/o constipation, blames on prilosec, but then states she is not taking, her legs are swelling up, she reports that she was feeling gradually worse after DC, 5 days ago she was diagnosed with covid. No current resp symptoms, no F, chills. As above. she states that she was very fatigued and run down with the COVID b ut is starting to improve. She denied any fever/chills/vomiting. her appetite is slightly better. She states that she has not smoked since being admitted to the hospital in 01/20. She has also not been using any NSAIDs. She is taking Prilosec and aspirate every other day. Joint issues are persistent. She continues to have ongoing fatigue. she reports some increased stiffness especially in her distal lower extremities and ankles. Review of systems otherwise negative out of 10 02/27/23-Pt here for f/u, plan was to resume hydrea once Hgb reached 10, 9.3 last visit. Today Hgb is 7.3. She reports eassy fatigue, SOB on exertion, generalized weakness, dizziness when changing positions, noted a few dark stool, denies melena, hematochezia, no other bleeding to report. She still has thick mucus production and cough, she is smoking occasionally, mild nausea at time. Denies F, V. plan on continuing to hold hydrea, monitor for bleeding, and checking iron panel. Past Medical History Past Medical History: GERD/Reflux, Pneumonia, Rheumatoid Arthritis (RA) Additional Past Medical History / Comment(s): IP ADMISSION FORGASTRIC ULCER IN MAY 2022 WITH HIGH PLATELET & WHITE COUNT THROMBYTOSIS- (SEES DR DAWKINS). COPD, leukoplakia of the vocal cords, chronic shoulder back and neck pain, acid reflux, depression, raynaud's syndrome. takes aldactone for hair loss. History of Any Multi-Drug Resistant Organisms: MRSA Year Discovered:: 05/03/19 MDRO Source:: MRSA FACE Past Surgical History: Back Surgery, Cholecystectomy, Hernia Repair, Orthopedic Surgery, Tonsillectomy Additional Past Surgical History / Comment(s): arthroscopic shoulder, vocal cord scraping, dariana fundoplasty, CERVICAL FUSSION, recent EGD, colonoscopy. VENTRAL HERNIA. Past Anesthesia/Blood Transfusion Reactions: Blood Transfusion Reaction Additional Past Anesthesia/Blood Transfusion Reaction / Comm: TRANSFUSIONS WITH GASTRIC ULCER Past Psychological History: Anxiety, Depression Smoking Status: Current every day smoker Past Alcohol Use History: None Reported Additional Past Alcohol Use History / Comment(s): smoked <ppd since age of 20. started smoking again recently, says 1 pack will last her 3days. Past Drug Use History: None Reported - Past Family History Mother History Unknown: Yes Family Medical History: Cancer Father Family Medical History: Unable to Obtain Medications and Allergies Home Medications Medication Instructions Recorded Confirmed Type Gabapentin 800 mg PO TID 05/01/14 03/09/23 History Topiramate 100 mg PO BID 05/01/14 03/09/23 History HYDROcodone/APAP 7.5-325MG [[place] 1 tab PO QID 03/11/16 03/09/23 History 7.5-325] Baclofen [Lioresal] 20 mg PO HS 07/02/17 03/09/23 History Sertraline [Zoloft] 50 mg PO DAILY 07/02/17 03/09/23 History buPROPion XL [Wellbutrin XL] 150 mg PO BID 07/02/17 03/09/23 History Multivit with Calcium,Iron,Min 1 tab PO DAILY 10/21/19 03/09/23 History [Women's Multivitamin] Spironolactone [Aldactone] 25 mg PO W/SUPPER 12/21/21 03/09/23 History Aspirin [Adult Low Dose Aspirin EC] 81 mg PO Q48H 06/07/22 03/09/23 History Omeprazole [PriLOSEC] 20 mg PO AC-BRKFST #90 cap 06/09/22 03/09/23 Rx Hydroxyurea 500 mg PO DAILY 09/20/22 03/09/23 History Clindamycin Phosphate 1 applic TOPICAL BID 01/16/23 03/09/23 History Tretinoin [Tretinoin 0.025%] 1 applic TOPICAL HS 01/16/23 03/09/23 History Lactulose [Cephulac] 30 gm PO BID PRN #600 ml 01/20/23 03/09/23 Rx Ondansetron Odt [Zofran Odt] 4 mg PO Q6H PRN 03/09/23 03/09/23 History Allergies Allergy/AdvReac Type Severity Reaction Status Date / Time metronidazole [From Flagyl] Allergy Itching, Verified 01/16/23 22:47 BURNING OF SKIN Physical Exam Vitals: Vital Signs Temp Pulse Pulse Pulse Resp BP BP 03/10/23 08:50 97.8 F 82 16 105/63 03/10/23 08:15 98.1 F 81 16 97/62 03/10/23 07:57 03/10/23 05:57 97.8 F 80 17 102/64 03/10/23 05:38 97.8 F 79 17 102/63 03/10/23 05:37 97.8 F 79 17 102/63 03/10/23 05:28 97.8 F 78 17 99/62 03/10/23 05:04 97.6 F 77 17 95/55 03/10/23 03:24 98.1 F 81 17 109/63 03/10/23 03:04 98.1 F 81 16 94/52 03/10/23 02:54 98.1 F 91 16 90/48 03/10/23 00:00 98.0 F 91 19 103/62 03/09/23 20:00 98.0 F 90 19 105/64 03/09/23 18:52 98.1 F 88 16 122/72 03/09/23 18:33 98.0 F 82 18 129/82 03/09/23 17:07 97 19 132/78 03/09/23 15:08 20 03/09/23 14:59 98.0 F 83 20 132/82 Pulse Ox 03/10/23 08:50 99 03/10/23 08:15 99 03/10/23 07:57 98 03/10/23 05:57 95 03/10/23 05:38 94 L 03/10/23 05:37 94 L 03/10/23 05:28 94 L 03/10/23 05:04 96 03/10/23 03:24 97 03/10/23 03:04 95 03/10/23 02:54 97 03/10/23 00:00 97 03/09/23 20:00 100 03/09/23 18:52 100 03/09/23 18:33 98 03/09/23 17:07 99 03/09/23 15:08 03/09/23 14:59 100 Intake and Output 03/09/23 03/10/23 03/10/23 22:59 06:59 14:59 Intake Total 310 490 Balance 310 490 Intake: Oral 180 Blood Product 310 310 Rc Irr As1 Unit 310 [id number] Rc Irr As1 Unit 0 310 [id number] Other: Voiding Method Toilet Toilet # Voids 3 1 Weight 45.359 kg 45.359 kg Patient appears to be no acute distress however appears to be tired. No respir atory distress. She does have conjunctival pallor. Abdomen soft however she does have significant epigastric and left upper quadrant tenderness, no rebound or rigidity. She has likely splenomegaly however exam was limited due to abdominal tenderness. Results CBC & Chem 7: 03/10/23 12:14 03/10/23 12:14 Labs: Abnormal Lab Results - Last 24 Hours (Table) 03/09/23 03/09/23 03/09/23 Range/Units 15:30 15:36 15:36 WBC 70.0 H* (3.8-10.6) k/uL RBC 1.85 L (3.80-5.40) m/uL Hgb 5.5 L* D (11.4-16.0) gm/dL Hct 19.0 L* (34.0-46.0) % MCV 102.5 H (80.0-100.0) fL MCHC 28.8 L (31.0-37.0) g/dL RDW 28.1 H (11.5-15.5) % Plt Count 998 H (150-450) k/uL Blast Cells % 1 H* % Neutrophils # (Manual) 46.90 H (1.3-7.7) k/uL Lymphocytes # (Manual) 5.60 H (1.0-4.8) k/uL Monocytes # (Manual) 1.40 H (0-1.0) k/uL Eosinophils # (Manual) 1.40 H (0-0.7) k/uL Basophils # (Manual) 3.50 H (0-0.2) k/uL Metamyelocytes # (Man) 7.00 H (0) k/uL Myelocytes # (Manual) 4.20 H (0) k/uL Promyelocytes # (Man) 0.70 H (0) k/uL Blast Cells # (Man) 0.70 H (0) k/uL Nucleated RBCs 5 H (0-0) /100 WBC Macrocytosis Marked A Glucose (74-99) mg/dL AST (14-36) U/L ALT (4-34) U/L Urine Appearance Cloudy H (Clear) Ur Leukocyte Esterase Large H (Negative) Urine WBC 43 H (0-5) /hpf Urine WBC Clumps Occasional H (None) /hpf Urine Bacteria Moderate H (None) /hpf Crossmatch See Detail 03/09/23 Range/Units 15:36 WBC (3.8-10.6) k/uL RBC (3.80-5.40) m/uL Hgb (11.4-16.0) gm/dL Hct (34.0-46.0) % MCV (80.0-100.0) fL MCHC (31.0-37.0) g/dL RDW (11.5-15.5) % Plt Count (150-450) k/uL Blast Cells % % Neutrophils # (Manual) (1.3-7.7) k/uL Lymphocytes # (Manual) (1.0-4.8) k/uL Monocytes # (Manual) (0-1.0) k/uL Eosinophils # (Manual) (0-0.7) k/uL Basophils # (Manual) (0-0.2) k/uL Metamyelocytes # (Man) (0) k/uL Myelocytes # (Manual) (0) k/uL Promyelocytes # (Man) (0) k/uL Blast Cells # (Man) (0) k/uL Nucleated RBCs (0-0) /100 WBC Macrocytosis Glucose 103 H (74-99) mg/dL AST 60 H (14-36) U/L ALT 39 H (4-34) U/L Urine Appearance (Clear) Ur Leukocyte Esterase (Negative) Urine WBC (0-5) /hpf Urine WBC Clumps (None) /hpf Urine Bacteria (None) /hpf Crossmatch Chest x-ray: report reviewed Assessment and Plan Assessment: 1. ET, was on Hydrea however this is been on hold for the last at least couple months 2. Severe anemia with leukocytosis and thrombocytosis, was last seen on smear 3. Epigastric left upper quadrant pain and tenderness 4. Likely splenomegaly 5. History of gastric ulcers, resolved on last EGD from 12/2022 6. Recent history of Covid infection Plan: Ms. Pickard is a very pleasant 62-year-old female with multiple comorbidities including ET, follows with Dr. Dawkins, who is here for severe weakness, dyspnea on exertion, leg swelling, found to have severe anemia with hemoglobin of 5.5 as well as leukocytosis and thrombocytosis. Blasts are seen on peripheral smear. Mild transaminitis. Had steroids however she completed this at least 1 week ago. No obvious signs of bleeding. Having significant epigastric left upper quadrant tenderness with likely splenomegaly on exam. -I would like to rule out bleeding contributing to her severe anemia, will obtain noncontrast CT of the abdomen and pelvis to rule out intra- abdominal/retroperitoneal bleed -We'll also rule out vitamin deficiencies including B12, folate, and iron as a reason for her cytopenias -I am worried about progression of her ET, especially in the setting of blasts and downtrending platelets despite not resuming Hydrea and a while. -If her initial workup is unremarkable then she would likely benefit from bone marrow biopsy -We'll also need to send flow cytometry -Would consider GI consultation; patient with persistent nausea and epigastric pain and tenderness Discussed with patient she is agreeable to the plan. All of her questions were answered.
[2023-03-10] MEDS: HYDROcodone/APAP 7.5-325MG 1 EACH TAB PO PRN ×2 (17:04→22:21)
[2023-03-10 17:32] LABS: Anisocytosis Marked; HCT 25.5 % (34.0-46.0); HGB 7.9 gm/dL (11.4-16.0); Hypochromasia Marked; MCHC 31.2 g/dL (31.0-37.0); MCV 96.2 fL (80.0-100.0); Macrocytosis Moderate; Mean Platelet Volume 8.1; Platelet Count 827 k/uL (150-450); Poikilocytosis Moderate; RBC 2.65 m/uL (3.80-5.40); RDW 24.8 % (11.5-15.5)
[2023-03-10 17:55] LABS: WBC 56.8 k/uL (3.8-10.6)
[2023-03-10] MEDS ORDERED: buPROPion XL 150 MG TAB.ER.24H PO SCH (21:00)
[2023-03-10] MEDS: BACLOFEN 10 MG TAB PO SCH (22:20)
[2023-03-10] MEDS: PANTOPRAZOLE 40 MG/10 ML VIAL IV SCH (22:23)
[2023-03-10] MEDS: DOCUSATE 100 MG CAP PO SCH (22:29)
[2023-03-10 23:21] LABS: Albumin 3.9 g/dL (3.8-4.9); Protein, Total 5.9 g/dL (6.2-8.2)
[2023-03-10 23:41] LABS: Immunoglobulin A 97.9 mg/dL (60.0-350.0)
[2023-03-10 23:51] LABS: Ferritin 88.9 ng/mL (10.0-291.0); Iron 241 UG/DL (50-170); Total Iron Binding Capacity 356 UG/DL (228-460)
[2023-03-11 00:21] LABS: Vitamin B12 >3600.0 pg/mL (200.0-944.0)
[2023-03-11] MEDS: HYDROcodone/APAP 7.5-325MG 1 EACH TAB PO PRN ×3 (05:23→23:03)
[2023-03-11 07:03] LABS: Anisocytosis Marked; HCT 26.3 % (34.0-46.0); HGB 8.1 gm/dL (11.4-16.0); Hypochromasia Marked; MCH 29.7 pg (25.0-35.0); MCHC 30.7 g/dL (31.0-37.0); MCV 96.7 fL (80.0-100.0); Macrocytosis Moderate; Mean Platelet Volume 8.2; Platelet Count 742 k/uL (150-450); Poikilocytosis Moderate; RBC 2.72 m/uL (3.80-5.40); RDW 24.7 % (11.5-15.5); WBC 47.2 k/uL (3.8-10.6)
--- NOTE | 2023-03-11 07:19 | CT ---
EXAMINATION TYPE: CT abdomen pelvis wo con CT DLP: 271.8 mGycm, Automated exposure control for dose reduction was used. DATE OF EXAM: 03/10/2023 9:01 PM COMPARISON: Multiple CT abdomen pelvis with most recent from 01/16/2023. CLINICAL INDICATION:Female, 62 years old with history of ?Splenomegaly? ?hemorrhage?; abd pain TECHNIQUE: Standard CT of the abdomen and pelvis without IV or oral contrast. Lack of IV or oral co ntrast limits evaluation of solid and hollow organ viscera. Coronal and sagittal reformats were perfo rmed. FINDINGS: LOWER CHEST: Unremarkable ABDOMEN LIVER: Stable left hepatic lobe 1.1 cm cyst. GALLBLADDER AND BILE DUCTS: Gallbladder is surgically absent with stable mild intrahepatic and extra hepatic biliary dilatation likely physiologic and a postcholecystectomy change. No evidence of choled ocholithiasis. PANCREAS: Unremarkable noncontrast appearance. SPLEEN: Enlarged measuring 17.6 cm in CC dimension. Previously 16.6 cm on 01/15/2023 exam, 15.1 cm on 09/30/2022 exam, and 13.6 cm on 01/18/2022 exam. ADRENAL GLANDS: Unremarkable noncontrast appearance.. KIDNEYS AND URETERS: No evidence of hydronephrosis or renal calculus. Right superior pole nonobstruct cassi 5 mm calculus with left inferior pole 2 mm renal calculus. PELVIS BLADDER: Unremarkable REPRODUCTIVE: Unremarkable noncontrast appearance. ABDOMEN & PELVIS STOMACH AND BOWEL: Postsurgical changes of the GE junction. Distal colonic diverticulosis without joe dence for acute diverticulitis. Mild to moderate colonic stool burden. The appendix is within normal limits with hyperdense appearance. No evidence of bowel obstruction. PERITONEUM: No evidence of pneumoperitoneum or free fluid. VASCULATURE: Mild atherosclerotic calcifications are present throughout the abdominal aorta and its b ranches. No evidence of aortic aneurysm. No abdominal aortic aneurysm. Pelvic phleboliths. MUSCULOSKELETAL: No acute osseous abnormalities. Similar mild anterior wedging of the distal vertebra l body with prominent Schmorl's node involving the superior endplate. Mild S-shaped scoliotic curvatu re of the visualized thoracolumbar spine. LYMPH NODES: No gross evidence for lymphadenopathy. SOFT TISSUE/ABDOMINAL WALL: Unremarkable IMPRESSION: Limited examination due to lack of intravenous and oral contrast. 1. Progressing splenomegaly. 2.Changes of prior cholecystectomy with intra and extrahepatic biliary ductal dilatation unchanged fr om prior study. 3. Colonic diverticulosis without evidence for acute diverticulitis. 4. Mild to moderate colonic stool burden. 5. Nonobstructive bilateral renal calculi.
[2023-03-11] MEDS: PANTOPRAZOLE 40 MG/10 ML VIAL IV SCH ×2 (08:48→21:58)
[2023-03-11] MEDS: buPROPion XL 300 MG TAB.ER.24H PO SCH (08:49)
[2023-03-11] MEDS: LIDOCAINE 5% PATCH TOPICAL SCH (08:49)
[2023-03-11] MEDS: SERTRALINE 50 MG TAB PO SCH (08:51)
[2023-03-11] MEDS: TOPIRAMATE 100 MG TAB PO SCH ×2 (08:51→21:56)
[2023-03-11] MEDS: GABAPENTIN 400 MG CAP PO SCH ×3 (08:51→21:56)
[2023-03-11] MEDS: DOCUSATE 100 MG CAP PO SCH ×2 (08:51→21:56)
[2023-03-11] MEDS: SENNOSIDES 8.6 MG TAB PO SCH ×2 (08:51→21:56)
[2023-03-11] MEDS ORDERED: ALPRAZolam 0.5 MG TAB PO STA (09:50)
--- NOTE | 2023-03-11 09:57 | P.PN ---
Subjective This is 62-year-old female, reports she follows with hematology, Dr. 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 She states that her back pain is now a little better about 60/10 nonspecific, nonradiating although sometimes goes to the front. She feels weak in both lower extremities but this looks symmetrical, no tingling or numbness, no saddle anesthesia. She denies urine or bowel incontinence. She has chronic urine urgency that she has been discussed with her PCP before. She has also chronic increased frequency of urination She denies diarrhea, she had loose bowel movement a few days ago but last bowel movement was yesterday and was formed, no significant pain or tenderness, no vomiting. She denies coughing, no chest pain, mild headache or dizziness, no weakness or numbness. She denies falling. 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 Her hydroxyurea which she takes for high platelet count. 03/11/2023 Patient breathing is stable and easy. She has some epigastric pain with eating However her main complaint is her back pain which she rated about 6-7/10 in severity Orthopedic team of the case, x-ray of the thoracic spine showing mild wedge of T12 which is similar to prior and cervical x-ray showing no fracture. Her CBC showing improvement with trending down WBC 47K, hemoglobin 8.2 improved after 1 unit of blood and platelet coming down to 747 k Discussed with staff we will resume her home dose of aspirin 81 mg of is okay with hematology team Patient little anxious Patient tolerates diet well check inflammatory markers of ESR 13, CRP 0.7 and procalcitonin 0.22, no fever, no strong evidence of infection, hold for any antibiotic for now Iron level was high, DC ferous sulfate Discussed with staff in detail Review of systems CONSTITUTIONAL: No fever, no malaise, no fatigue. HEENT: No recent visual problems or hearing problems. Denied any sore throat. CARDIOVASCULAR: No orthopnea, PND, no palpitations, no syncope. PULMONARY: No shortness of breath, no cough, no hemoptysis. HEMATOLOGICAL: Denies any bleeding or petechiae. GENITOURINARY: Denies any burning micturition, frequency, or urgency. ENDOCRINE: Denies any polyuria or polydipsia. Active Medications Generic Name Dose Route Start Last Admin Trade Name Freq PRN Reason Stop Dose Admin Acetaminophen/Codeine Phosphate 1 each 03/11/23 09:50 Acetaminophen-Codeine 300-30mg Tab PO Q8HR PRN Pain Hydrocodone Bitart/Acetaminophen 1 each 03/10/23 09:11 03/11/23 05:23 Hydrocodone/Apap 7.5-325mg 1 Each Tab PO 1 each QID PRN Administration Pain Aspirin 81 mg 03/11/23 10:00 Aspirin 81 Mg PO Q48H SHERRILL Baclofen 20 mg 03/10/23 21:00 03/10/23 22:20 Baclofen 10 Mg Tab PO 20 mg HS SHERRILL Administration Bupropion HCl 300 mg 03/10/23 09:45 03/11/23 08:49 Bupropion Xl 300 Mg Tab.Er.24h PO 300 mg DAILY SHERRILL Administration Docusate Sodium 100 mg 03/10/23 22:30 03/11/23 08:51 Docusate 100 Mg Cap PO 100 mg BID SHERRILL Administration Gabapentin 800 mg 03/09/23 22:00 03/11/23 08:51 Gabapentin 400 Mg Cap PO 800 mg TID SHERRILL Administration Lactulose 30 gm 03/10/23 09:09 Lactulose 20 Gm/30 Ml Cup PO BID PRN Constipation Lidocaine 1 patch 03/10/23 10:00 03/11/23 08:49 Lidocaine 5% Patch TOPICAL 1 patch DAILY SHERRILL Administration Naloxone HCl 0.2 mg 03/09/23 16:47 Naloxone 0.4 Mg/Ml 1 Ml Vial IV Q2M PRN Opioid Reversal Ondansetron HCl 4 mg 03/10/23 09:09 03/10/23 17:03 Ondansetron Odt 4 Mg Tab PO 4 mg Q6H PRN Administration Nausea Pantoprazole Sodium 40 mg 03/10/23 21:00 03/11/23 08:48 Pantoprazole 40 Mg/10 Ml Vial IV 40 mg BID SHERRILL Administration Senna 8.6 mg 03/11/23 09:00 03/11/23 08:51 Sennosides 8.6 Mg Tab PO 8.6 mg BID SHERRILL Administration Sertraline HCl 50 mg 03/10/23 09:15 03/11/23 08:51 Sertraline 50 Mg Tab PO 50 mg DAILY SHERRILL Administration Spironolactone 25 mg 03/11/23 17:30 Spironolactone 25 Mg Tab PO W/SUPPER SHERRILL Topiramate 100 mg 03/10/23 09:15 03/11/23 08:51 Topiramate 100 Mg Tab PO 100 mg BID SHERRILL Administration Objective - Vital Signs Vital signs: Vital Signs Temp 97.9 F 03/11/23 04:00 Pulse 75 03/11/23 04:00 Resp 16 03/11/23 04:00 BP 105/57 03/11/23 04:00 Pulse Ox 95 03/11/23 04:00 FiO2 Intake & Output 03/10/23 03/11/23 03/11/23 18:59 06:59 18:59 Intake Total 1640 10 Output Total 1400 Balance 240 10 Weight 45.359 kg Intake: IV 10 Invasive Line 1 10 Oral 1020 Blood Product 620 Rc Irr As1 Unit 310 [id number] Output: Urine 1400 Other: Voiding Method Toilet Toilet # Voids 1 3 - Exam GENERAL: The patient is alert and oriented x3, not in any acute distress. Well developed, well nourished. HEENT: Pupils are round and equally reacting to light. EOMI. No scleral icterus. No conjunctival pallor. Normocephalic, atraumatic. No pharyngeal erythema. No thyromegaly. CARDIOVASCULAR: S1 and S2 present. No murmurs, rubs, or gallops. PULMONARY: Chest is clear to auscultation, no wheezing , no crackles. ABDOMEN: Soft, nontender, nondistended, normoactive bowel sounds. No palpable organomegaly. -MUSCULOSKELETAL: No joint swelling or deformity. Mild tenderness in the middle of the back in the lower thoracic region EXTREMITIES: No cyanosis, clubbing, or pedal edema. NEUROLOGICAL: Gross neurological examination did not reveal any focal deficits. SKIN: No rashes. no petechiae. - Labs CBC & Chem 7: 03/11/23 06:38 03/10/23 12:14 Labs: Abnormal Lab Results - Last 24 Hours (Table) 03/09/23 03/10/23 03/10/23 Range/Units 15:30 12:14 12:14 WBC 57.0 H* (3.8-10.6) k/uL RBC 2.87 L (3.80-5.40) m/uL Hgb 8.5 L D (11.4-16.0) gm/dL Hct 27.7 L (34.0-46.0) % MCHC 30.7 L (31.0-37.0) g/dL RDW 24.7 H (11.5-15.5) % Plt Count 811 H (150-450) k/uL Blast Cells % 2 H* % Neutrophils # (Manual) 38.10 H (1.3-7.7) k/uL Lymphocytes # (Manual) 6.27 H (1.0-4.8) k/uL Monocytes # (Manual) 1.14 H (0-1.0) k/uL Eosinophils # (Manual) 1.14 H (0-0.7) k/uL Basophils # (Manual) 0.57 H (0-0.2) k/uL Metamyelocytes # (Man) 5.13 H (0) k/uL Myelocytes # (Manual) 3.99 H (0) k/uL Blast Cells # (Man) 1.14 H (0) k/uL Nucleated RBCs 8 H (0-0) /100 WBC Iron (50-170) UG/DL % Saturation (12.00-45.00) Total Protein (PEP) (6.2-8.2) g/dL Vitamin B12 (200.0-944.0) pg/mL Procalcitonin 0.22 H (0.02-0.09) ng/mL Crossmatch See Detail 03/10/23 03/10/23 03/10/23 Range/Units 16:46 16:46 16:46 WBC 56.8 H* (3.8-10.6) k/uL RBC 2.65 L (3.80-5.40) m/uL Hgb 7.9 L (11.4-16.0) gm/dL Hct 25.5 L (34.0-46.0) % MCHC (31.0-37.0) g/dL RDW 24.8 H (11.5-15.5) % Plt Count 827 H (150-450) k/uL Blast Cells % % Neutrophils # (Manual) (1.3-7.7) k/uL Lymphocytes # (Manual) (1.0-4.8) k/uL Monocytes # (Manual) (0-1.0) k/uL Eosinophils # (Manual) (0-0.7) k/uL Basophils # (Manual) (0-0.2) k/uL Metamyelocytes # (Man) (0) k/uL Myelocytes # (Manual) (0) k/uL Blast Cells # (Man) (0) k/uL Nucleated RBCs (0-0) /100 WBC Iron 241 H (50-170) UG/DL % Saturation 67.70 H (12.00-45.00) Total Protein (PEP) 5.9 L (6.2-8.2) g/dL Vitamin B12 >3600.0 H (200.0-944.0) pg/mL Procalcitonin (0.02-0.09) ng/mL Crossmatch 03/11/23 Range/Units 06:38 WBC 47.2 H (3.8-10.6) k/uL RBC 2.72 L (3.80-5.40) m/uL Hgb 8.1 L (11.4-16.0) gm/dL Hct 26.3 L (34.0-46.0) % MCHC 30.7 L (31.0-37.0) g/dL RDW 24.7 H (11.5-15.5) % Plt Count 742 H (150-450) k/uL Blast Cells % % Neutrophils # (Manual) (1.3-7.7) k/uL Lymphocytes # (Manual) (1.0-4.8) k/uL Monocytes # (Manual) (0-1.0) k/uL Eosinophils # (Manual) (0-0.7) k/uL Basophils # (Manual) (0-0.2) k/uL Metamyelocytes # (Man) (0) k/uL Myelocytes # (Manual) (0) k/uL Blast Cells # (Man) (0) k/uL Nucleated RBCs (0-0) /100 WBC Iron (50-170) UG/DL % Saturation (12.00-45.00) Total Protein (PEP) (6.2-8.2) g/dL Vitamin B12 (200.0-944.0) pg/mL Procalcitonin (0.02-0.09) ng/mL Crossmatch Assessment and Plan Assessment: Severe anemia, status post one unit of blood transfusion, recent w/r showed KUMAR Leukocytosis and thrombocytosis Gradually Worsening splenomegaly Recent history of suspected Acute GI bleed with dark stools, however EGD showing only mild antral gastritis Thoracic back pain and tenderness History of COPD, not an exacerbation Hypertension GERD Rheumatoid arthritis History of anxiety/depression Continued ongoing nicotine dependence Moderate calorie protein malnutrition Plan: Resume aspirin if okay with hematology team Continue with Protonix twice a day orthopedic team consult for her back pain and tenderness, x-ray reviewed Pain management Dietary consult hematology/oncology team Labs and medication were reviewed.. Continue same treatment. Continue with symptomatic treatment. Resume home medication. Monitor labs and vitals. DVT and GI prophylaxis. Further recommendations as per clinical course of the patient DVT prophylaxis: no Subcutaneous heparin, in view of her anemia GI Prophylaxis: Ppi PT/OT: Pending Prognosis is guarded Dr. scott will resume the care of the patient tomorrow
--- NOTE | 2023-03-11 10:39 | P.PN ---
Subjective Progress Note Date: 03/11/23 Principal diagnosis: Back pain. This is a 62-year-old female admitted with severe upper back pain with no recent trauma or injury. She has a known history of a blood disorder and has had several transfusions in the last few months for anemia. She states that she was found to have a GI bleed no longer go. She has history of cervical fusion in the past. She also sees Dr. Jarvis for severe arthritis of her right shoulder and is in need of a shoulder replacement. She states that she has not been able to follow-up with Dr. Jarvis due to her recent illnesses and complications from her blood disorder. She states that over the past week her upper back pain has become severe. She's been unable to sleep. She states that the pain radiates from between her shoulder blades and around the back of her chest. She states that her hands are numb all of the time which is not new. We are consulted for orthopedic spine evaluation. 03/11/2023: The patient had cervical and thoracic x-rays yesterday which reveal no obvious acute fracture. Diffuse osteopenia and degenerative changes noted. Three-level cervical fusion with hardware in place noted. The fusion appears to be solid. The patient continues to have severe pain to the mid to upper thoracic spine. She is ambulating independently about the room. She states that the pain is quite severe at times, especially with certain movements. She reports no fever or chills. She's had no nausea, vomiting or diarrhea. No shortness of breath. Vital signs are stable. Objective - Vital Signs Vital signs: Vital Signs Temp 98 F 03/11/23 08:45 Pulse 76 03/11/23 08:45 Resp 18 03/11/23 08:45 BP 102/64 03/11/23 08:45 Pulse Ox 98 03/11/23 08:45 FiO2 Intake & Output 03/10/23 03/11/23 03/11/23 18:59 06:59 18:59 Intake Total 1640 10 Output Total 1400 Balance 240 10 Weight 45.359 kg Intake: IV 10 Invasive Line 1 10 Oral 1020 Blood Product 620 Rc Irr As1 Unit 310 [id number] Output: Urine 1400 Other: Voiding Method Toilet Toilet # Voids 1 3 0 # Bowel Movements 0 - Exam This is a 62-year-old female in no acute distress. She is alert and oriented. She is ambulating independently about the room. She is tender with palpation about the upper to mid thoracic spine along the spinous processes and to the paraspinal musculature directly lateral to the spine. She is able to flex forward and extend the spine. She has no neuro deficits noted to the upper or lower extremities. - Labs CBC & Chem 7: 03/11/23 06:38 03/10/23 12:14 Labs: Abnormal Lab Results - Last 24 Hours (Table) 03/10/23 03/10/23 03/10/23 Range/Units 12:14 12:14 16:46 WBC 57.0 H* (3.8-10.6) k/uL RBC 2.87 L (3.80-5.40) m/uL Hgb 8.5 L D (11.4-16.0) gm/dL Hct 27.7 L (34.0-46.0) % MCHC 30.7 L (31.0-37.0) g/dL RDW 24.7 H (11.5-15.5) % Plt Count 811 H (150-450) k/uL Blast Cells % 2 H* % Neutrophils # (Manual) 38.10 H (1.3-7.7) k/uL Lymphocytes # (Manual) 6.27 H (1.0-4.8) k/uL Monocytes # (Manual) 1.14 H (0-1.0) k/uL Eosinophils # (Manual) 1.14 H (0-0.7) k/uL Basophils # (Manual) 0.57 H (0-0.2) k/uL Metamyelocytes # (Man) 5.13 H (0) k/uL Myelocytes # (Manual) 3.99 H (0) k/uL Blast Cells # (Man) 1.14 H (0) k/uL Nucleated RBCs 8 H (0-0) /100 WBC Iron 241 H (50-170) UG/DL % Saturation 67.70 H (12.00-45.00) Total Protein (PEP) (6.2-8.2) g/dL Vitamin B12 >3600.0 H (200.0-944.0) pg/mL Procalcitonin 0.22 H (0.02-0.09) ng/mL 1103/10/23 03/11/23 Range/Units 16:46 16:46 06:38 WBC 56.8 H* 47.2 H (3.8-10.6) k/uL RBC 2.65 L 2.72 L (3.80-5.40) m/uL Hgb 7.9 L 8.1 L (11.4-16.0) gm/dL Hct 25.5 L 26.3 L (34.0-46.0) % MCHC 30.7 L (31.0-37.0) g/dL RDW 24.8 H 24.7 H (11.5-15.5) % Plt Count 827 H 742 H (150-450) k/uL Blast Cells % % Neutrophils # (Manual) (1.3-7.7) k/uL Lymphocytes # (Manual) (1.0-4.8) k/uL Monocytes # (Manual) (0-1.0) k/uL Eosinophils # (Manual) (0-0.7) k/uL Basophils # (Manual) (0-0.2) k/uL Metamyelocytes # (Man) (0) k/uL Myelocytes # (Manual) (0) k/uL Blast Cells # (Man) (0) k/uL Nucleated RBCs (0-0) /100 WBC Iron (50-170) UG/DL % Saturation (12.00-45.00) Total Protein (PEP) 5.9 L (6.2-8.2) g/dL Vitamin B12 (200.0-944.0) pg/mL Procalcitonin (0.02-0.09) ng/mL Assessment and Plan (1) Back pain Current Visit: Yes Status: Acute Code(s): M54.9 - DORSALGIA, UNSPECIFIED SNOMED Code(s): 962631564 (2) Anemia Current Visit: Yes Status: Acute Priority: High Code(s): D64.9 - ANEMIA, UNSPECIFIED SNOMED Code(s): 501413340 Plan: The clinical and x-ray findings are discussed with the patient. The patient is requesting an MRI for further evaluation of her thoracic spine. It is discussed with the patient that she is ambulating independently and getting around fairly well. MRI may be done as an outpatient. Patient is insisting it be done before her discharge. I have placed the order for the MRI. We will await MRI results and proceed with further recommendations at that time.
[2023-03-11] MEDS: Acetaminophen-Codeine 300-30mg TAB PO PRN (12:11)
[2023-03-11] MEDS: ASPIRIN 81 MG PO SCH (12:11)
[2023-03-11] MEDS: SPIRONOLACTONE 25 MG TAB PO SCH (17:00)
[2023-03-11] MEDS: BACLOFEN 10 MG TAB PO SCH (21:56)
[2023-03-12] MEDS: Acetaminophen-Codeine 300-30mg TAB PO PRN (06:52)
[2023-03-12] MEDS: SENNOSIDES 8.6 MG TAB PO SCH ×2 (10:04→22:11)
[2023-03-12] MEDS: TOPIRAMATE 100 MG TAB PO SCH ×2 (10:04→22:11)
[2023-03-12] MEDS: PANTOPRAZOLE 40 MG/10 ML VIAL IV SCH ×2 (10:04→22:12)
[2023-03-12] MEDS: SERTRALINE 50 MG TAB PO SCH (10:04)
[2023-03-12] MEDS: DOCUSATE 100 MG CAP PO SCH ×2 (10:04→22:11)
[2023-03-12] MEDS: GABAPENTIN 400 MG CAP PO SCH ×3 (10:04→22:11)
[2023-03-12] MEDS: LIDOCAINE 5% PATCH TOPICAL SCH (10:05)
[2023-03-12] MEDS: buPROPion XL 300 MG TAB.ER.24H PO SCH (10:05)
[2023-03-12] MEDS: HYDROcodone/APAP 7.5-325MG 1 EACH TAB PO PRN (10:06)
[2023-03-12 10:50] LABS: Anisocytosis Marked; HCT 29.7 % (34.0-46.0); HGB 8.9 gm/dL (11.4-16.0); Hypochromasia Marked; MCH 29.6 pg (25.0-35.0); MCHC 29.9 g/dL (31.0-37.0); MCV 99.3 fL (80.0-100.0); Macrocytosis Marked; Mean Platelet Volume 8.1; Platelet Count 752 k/uL (150-450); Poikilocytosis Moderate; RBC 2.99 m/uL (3.80-5.40); RDW 24.7 % (11.5-15.5)
[2023-03-12 11:12] LABS: African American GFR (CKD) 68 (>60 ml/min/1.73 sqM); Anion Gap 5 mmol/L; Blood Urea Nitrogen 12 mg/dL (7-17); Calcium 9.1 mg/dL (8.4-10.2); Carbon Dioxide 27 mmol/L (22-30); Chloride 108 mmol/L (98-107); Glucose 100 mg/dL (74-99); Non-African American GFR(CKD) 59 (>60 ml/min/1.73 sqM); Potassium 4.7 mmol/L (3.5-5.1); Sodium 140 mmol/L (137-145)
--- NOTE | 2023-03-12 12:33 | MR ---
EXAMINATION TYPE: MR thoracic spine wo con DATE OF EXAM: 03/12/2023 COMPARISON: Pain HISTORY: Mid back pain, weakness. Standard multiplanar, multisequence MRI departmental protocol Multiplanar, multisequence images of the thoracic spine were acquired without contrast. FINDINGS: Exam limited due to motion artifact. There is a scoliotic curvature spine. Diffuse marrow signal alteration likely basis of osteopenia. Candido alec There is moderate multilevel hypertrophic and degenerative disc disease. There is a central disc bulge or protrusion C6-C7 not included in the axial images At T2-T3 there is right paracentral disc bulging with effacement of thecal sac but no spinal cord con tact or foraminal encroachment. At T3-T4 there is minimal right paracentral disc bulging. No canal stenosis or focal herniation. At T6-T7 there is minimal left paracentral disc bulging but no discrete herniation or canal stenosis. At T11-T12 there is a minimal central and right paracentral disc bulge but no discrete herniation or canal stenosis. Neural foramina patent. Motion artifact limits assessment of spinal cord. Grossly no abnormal signal is seen. There is mild thickening of the left adrenal gland likely in the basis of benign hyperplasia. There i s loss of vertebral body height of T12 which appears related to a Schmorl's node. No acute compressio n fracture. Mild diffuse osteopenia. IMPRESSION: 1. Multilevel mild amount degenerative disc disease with multilevel disc bulging most pronounced at T 2-T3 paracentrally to the right. 2. Central disc protrusion C6-C7 not included in the [id number]-sm-[id number] on axial images.
[2023-03-12 12:50] LABS: Free Kappa Lt Chain Qnt, Serum 1.98 mg/dL (0.33-1.94); Free Lambda Lt Chain Qnt, Seru 1.55 mg/dL (0.57-2.63)
--- NOTE | 2023-03-12 13:46 | P.PN ---
Subjective Progress Note Date: 03/12/23 Principal diagnosis: Back pain. This is a 62-year-old female admitted with severe upper back pain with no recent trauma or injury. She has a known history of a blood disorder and has had several transfusions in the last few months for anemia. She states that she was found to have a GI bleed no longer go. She has history of cervical fusion in the past. She also sees Dr. Jarvis for severe arthritis of her right shoulder and is in need of a shoulder replacement. She states that she has not been able to follow-up with Dr. Jarvis due to her recent illnesses and complications from her blood disorder. She states that over the past week her upper back pain has become severe. She's been unable to sleep. She states that the pain radiates from between her shoulder blades and around the back of her chest. She states that her hands are numb all of the time which is not new. We are consulted for orthopedic spine evaluation. 03/11/2023: The patient had cervical and thoracic x-rays yesterday which reveal no obvious acute fracture. Diffuse osteopenia and degenerative changes noted. Three-level cervical fusion with hardware in place noted. The fusion appears to be solid. The patient continues to have severe pain to the mid to upper thoracic spine. She is ambulating independently about the room. She states that the pain is quite severe at times, especially with certain movements. She reports no fever or chills. She's had no nausea, vomiting or diarrhea. No shortness of breath. Vital signs are stable. 03/12/2023: The patient had an MRI of the thoracic spine today which revealed no acute compression fracture. She has normal age-related degenerative changes throughout the thoracic spine. Objective - Vital Signs Vital signs: Vital Signs Temp 97.6 F 03/12/23 08:00 Pulse 80 03/12/23 08:00 Resp 16 03/12/23 08:00 BP 120/70 03/12/23 08:00 Pulse Ox 99 03/12/23 08:00 FiO2 Intake & Output 03/11/23 03/12/23 03/12/23 18:59 06:59 18:59 Intake Total 900 540 118 Balance 900 540 118 Intake: Oral 900 540 118 Other: Voiding Method Toilet Toilet Toilet # Voids 0 1 # Bowel Movements 0 - Exam Patient was not evaluated today. According to nursing staff she is Ambulating around the room without assistance. - Labs CBC & Chem 7: 03/12/23 10:32 03/12/23 10:32 Labs: Abnormal Lab Results - Last 24 Hours (Table) 03/10/23 03/12/23 03/12/23 Range/Units 16:46 10:32 10:32 RBC 2.99 L (3.80-5.40) m/uL Hgb 8.9 L (11.4-16.0) gm/dL Hct 29.7 L (34.0-46.0) % MCHC 29.9 L (31.0-37.0) g/dL RDW 24.7 H (11.5-15.5) % Plt Count 752 H (150-450) k/uL Macrocytosis Marked A Chloride 108 H (98-107) mmol/L Glucose 100 H (74-99) mg/dL Free [place] LC, Quant 1.98 H (0.33-1.94) mg/dL Assessment and Plan (1) Back pain Current Visit: Yes Status: Acute Code(s): M54.9 - DORSALGIA, UNSPECIFIED SNOMED Code(s): 627002630 (2) Anemia Current Visit: Yes Status: Acute Priority: High Code(s): D64.9 - ANEMIA, UNSPECIFIED SNOMED Code(s): 208145315 Plan: The clinical and x-ray findings are Discussed with nursing staff. MRI is negative for acute compression fracture. She may be discharged from an orthopedic standpoint and follow-up as an outpatient.
[2023-03-12 14:03] LABS: Band Neutrophils % 7 %; Basophils # (M) 1.42 k/uL (0-0.2); Eosinophils # (M) 0.95 k/uL (0-0.7); Lymphocytes # (M) 5.21 k/uL (1.0-4.8); Metamyelocytes % 4 %; Monocytes # (M) 0.95 k/uL (0-1.0); Myelocytes # (M) 1.42 k/uL (0); Myelocytes % 3 %; Neutrophils % (M) 69 %; Nucleated Red Blood Cells 6 /100 WBC (0-0); Promyelocytes # (M) 0.47 k/uL (0); Promyelocytes % 1 %; Total Cells Counted 200; WBC 47.4 k/uL (3.8-10.6)
[2023-03-12 14:14] LABS: Polychromasia Present
--- NOTE | 2023-03-12 16:06 | P.PN ---
Progress Note - Text Progress Note Date: 03/12/23 Patient not seen, off floor for MRI.
[2023-03-12] MEDS: SPIRONOLACTONE 25 MG TAB PO SCH (17:14)
[2023-03-12 17:17] LABS: Gamma Globulin 0.68 g/dL (0.70-1.50)
--- NOTE | 2023-03-12 20:14 | P.PN ---
Subjective Progress Note Date: 03/12/23 Principal diagnosis: Anemia and weakness In f/u today pt has similar c/o of generalized weakness, malaise, unwell feeling. NO recent fevers, vomiting, SOB, her abd is still distended and uncomfortable, reports no BM in almost 5 days, she has been medicated for the same with no results when seen and examined. Objective - Vital Signs Vital signs: Vital Signs Temp 97.6 F 03/12/23 08:00 Pulse 82 03/12/23 16:00 Resp 16 03/12/23 14:00 BP 105/68 03/12/23 16:00 Pulse Ox 99 03/12/23 16:18 FiO2 Intake & Output 03/12/23 03/12/23 03/13/23 06:59 18:59 06:59 Intake Total 540 958 Balance 540 958 Intake: Oral 540 958 Other: Voiding Method Toilet Toilet # Voids 1 - Constitutional General appearance: Present: cooperative, no acute distress, thin - EENT Eyes: Present: anicteric sclerae, EOMI ENT: Present: hearing grossly normal - Respiratory Details: resp even and unlabored - Cardiovascular Details: skin warm and dry to touch - Gastrointestinal Gastrointestinal Comment(s): few distant BS heard General gastrointestinal: Present: distended, tenderness - Neurologic Neurologic: Present: CNII-XII intact - Musculoskeletal Musculoskeletal: Present: generalized weakness - Psychiatric Psychiatric: Present: A&O x's 3, appropriate affect, intact judgment & insight - Labs CBC & Chem 7: 03/12/23 10:32 03/12/23 10:32 Labs: Abnormal Lab Results - Last 24 Hours (Table) 03/10/23 03/12/23 03/12/23 Range/Units 16:46 10:32 10:32 WBC 47.4 H (3.8-10.6) k/uL RBC 2.99 L (3.80-5.40) m/uL Hgb 8.9 L (11.4-16.0) gm/dL Hct 29.7 L (34.0-46.0) % MCHC 29.9 L (31.0-37.0) g/dL RDW 24.7 H (11.5-15.5) % Plt Count 752 H (150-450) k/uL Neutrophils # (Manual) 36.00 H (1.3-7.7) k/uL Lymphocytes # (Manual) 5.21 H (1.0-4.8) k/uL Eosinophils # (Manual) 0.95 H (0-0.7) k/uL Basophils # (Manual) 1.42 H (0-0.2) k/uL Metamyelocytes # (Man) 1.90 H (0) k/uL Myelocytes # (Manual) 1.42 H (0) k/uL Promyelocytes # (Man) 0.47 H (0) k/uL Nucleated RBCs 6 H (0-0) /100 WBC Macrocytosis Marked A Chloride 108 H (98-107) mmol/L Glucose 100 H (74-99) mg/dL Aekec-3-Cxviatfqe 0.46 H (0.10-0.40) g/dL Boiyu-9-Nlgokgsnw 0.55 L (0.60-1.00) g/dL Gamma Globulins 0.68 L (0.70-1.50) g/dL Free Blanket LC, Quant 1.98 H (0.33-1.94) mg/dL Assessment and Plan (1) Chronic myeloid leukemia (CML), BCR/ABL-positive Current Visit: Yes Status: Acute Priority: High Code(s): C92.10 - CHRONIC MYELOID LEUK, BCR/ABL-POSITIVE, NOT ACHIEVE REMIS SNOMED Code(s): 81268429 (2) Anemia Current Visit: Yes Status: Chronic Priority: Medium Code(s): D64.9 - ANEMIA, UNSPECIFIED SNOMED Code(s): 003897564 (3) Essential thrombocythemia Current Visit: Yes Status: Chronic Priority: Medium Code(s): D47.3 - ESSENTIAL (HEMORRHAGIC) THROMBOCYTHEMIA SNOMED Code(s): 164244632 Plan: CML -Reviewed with pt new diagnosis, results from flow cytometry done over a month ago. -CT AP showed progressive splenomegaly-associated with CML diagnosis -Reviewed that CML is a treatable disease and many pt go on to live normal lives with near normal life expectancies with treatment -Discussed that anemia and thrombcytosis may be exacerbated by CML so, treatment of CML may help her other counts improve -F/U with Dr. Dawkins for treatment options will be scheduled and pt contacted with that appt date and time Anemia -S/P 2 units PRBCs, Hgb 8.9 today -Transfuse for a Hgb<7 or if symptomatic Thrombocytosis -Plt 752,000 today -Pt is on baby asa daily
[2023-03-12] MEDS: BACLOFEN 10 MG TAB PO SCH ×2 (22:11→22:12)
[2023-03-13] MEDS ORDERED: ALPRAZolam 0.5 MG TAB PO STA (00:46)
[2023-03-13] MEDS: LIDOCAINE 5% PATCH TOPICAL SCH (09:27)
[2023-03-13] MEDS: GABAPENTIN 400 MG CAP PO SCH (09:28)
[2023-03-13] MEDS: PANTOPRAZOLE 40 MG/10 ML VIAL IV SCH (09:28)
[2023-03-13] MEDS: DOCUSATE 100 MG CAP PO SCH (09:28)
[2023-03-13] MEDS: TOPIRAMATE 100 MG TAB PO SCH (09:28)
[2023-03-13] MEDS: buPROPion XL 300 MG TAB.ER.24H PO SCH (09:28)
[2023-03-13] MEDS: ASPIRIN 81 MG PO SCH (09:28)
[2023-03-13] MEDS: SENNOSIDES 8.6 MG TAB PO SCH (09:28)
[2023-03-13] MEDS: SERTRALINE 50 MG TAB PO SCH (09:28)
[2023-03-13 11:28] VITALS: RESP 16; TEMP 97.9
[2023-03-13 12:46] VITALS: BP 111/73; PULSE 74
[2023-03-13 13:15] LABS: Anisocytosis Marked; HCT 30.9 % (34.0-46.0); HGB 9.2 gm/dL (11.4-16.0); Hypochromasia Marked; MCH 29.7 pg (25.0-35.0); MCHC 29.9 g/dL (31.0-37.0); MCV 99.4 fL (80.0-100.0); Macrocytosis Marked; Mean Platelet Volume 7.7; Platelet Count 757 k/uL (150-450); Poikilocytosis Moderate; RBC 3.11 m/uL (3.80-5.40); RDW 24.4 % (11.5-15.5); WBC 49.5 k/uL (3.8-10.6)
--- NOTE | 2023-03-13 14:49 | P.DS ---
Providers Date of admission: 03/09/23 16:48 Expected date of discharge: 03/13/23 Attending physician: Bashir Jefferson MD Consults: 03/09/23 16:48 Consult Physician Routine Consulting Provider: Alexandro Dawkins Consult Reason/Comments: Anemia, leukemia? Do you want consulting provider notified?: Yes 03/10/23 09:08 Consult Physician Routine Consulting Provider: Shahid Basurto Consult Reason/Comments: thoracic back pain and tenderness Do you want consulting provider notified?: Yes Primary care physician: Katja [facility] Hospital Course: Final Diagnoses: CML, recently diagnosed outpatient from a flow cytometry, a few weeks ago. No bone marrow biopsy needed as per oncology/hematology. 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 History of COPD, stable Hypertension GERD Rheumatoid arthritis History of anxiety/depression Continued ongoing nicotine dependence Moderate calorie protein malnutrition Hospital course: This is 62-year-old female admitted with severe anemia, thrombocytosis, increased weakness, chronic back pain and multiple other medical issues. Evaluated by orthopedic spine, hematology/oncology. A few weeks ago outpatient patient was diagnosed with CML from a flow cytometry as per oncology and therefore no bone marrow biopsy needed. Received 2 units packed RBCs during this admission. Patient currently on aspirin daily. WBC currently 49.5, hemoglobin 9.2, platelets 757. Afebrile. BUN 12, creatinine 1.03. Cleared by orthopedic spine for discharge .Cleared by oncology for discharge with rec ommendations for patient to follow with Dr. Dawkins for treatment options. Patient will be discharged home today in a stable condition with guarded prognosis. The impression and plan of care has been dictated as directed. : I performed a history and examination of this patient, discussed the same with the dictator. I agree with the dictator's note ,documented as a scribe. Any additional findings or plans will be noted. Patient Condition at Discharge: Stable Plan - Discharge Summary Discharge Rx Participant: Yes New Discharge Prescriptions: New Sennosides [Senokot] 8.6 mg PO BID tab Continue Topiramate 100 mg PO BID Gabapentin 800 mg PO TID HYDROcodone/APAP 7.5-325MG [[place] 7.5-325] 1 tab PO QID Baclofen [Lioresal] 20 mg PO HS buPROPion XL [Wellbutrin XL] 150 mg PO BID Sertraline [Zoloft] 50 mg PO DAILY Multivit with Calcium,Iron,Min [Women's Multivitamin] 1 tab PO DAILY Aspirin [Adult Low Dose Aspirin EC] 81 mg PO Q48H Omeprazole [PriLOSEC] 20 mg PO AC-BRKFST #90 cap Clindamycin Phosphate 1 applic TOPICAL BID Tretinoin [Tretinoin 0.025%] 1 applic TOPICAL HS Lactulose [Cephulac] 30 gm PO BID PRN #600 ml PRN Reason: Constipation Spironolactone [Aldactone] 25 mg PO W/SUPPER Hydroxyurea 500 mg PO DAILY Ondansetron Odt [Zofran ODT] 4 mg PO Q6H PRN PRN Reason: Nausea Discharge Medication List Gabapentin 800 mg PO TID 05/01/14 [History] Topiramate 100 mg PO BID 05/01/14 [History] HYDROcodone/APAP 7.5-325MG [[place] 7.5-325] 1 tab PO QID 03/11/16 [History] Baclofen [Lioresal] 20 mg PO HS 07/02/17 [History] Sertraline [Zoloft] 50 mg PO DAILY 07/02/17 [History] buPROPion XL [Wellbutrin XL] 150 mg PO BID 07/02/17 [History] Multivit with Calcium,Iron,Min [Women's Multivitamin] 1 tab PO DAILY 10/21/19 [History] Spironolactone [Aldactone] 25 mg PO W/SUPPER 12/21/21 [History] Aspirin [Adult Low Dose Aspirin EC] 81 mg PO Q48H 06/07/22 [History] Omeprazole [PriLOSEC] 20 mg PO AC-BRKFST #90 cap 06/09/22 [Rx] Hydroxyurea 500 mg PO DAILY 09/20/22 [History] Clindamycin Phosphate 1 applic TOPICAL BID 01/16/23 [History] Tretinoin [Tretinoin 0.025%] 1 applic TOPICAL HS 01/16/23 [History] Lactulose [Cephulac] 30 gm PO BID PRN #600 ml 01/20/23 [Rx] Ondansetron Odt [Zofran ODT] 4 mg PO Q6H PRN 03/09/23 [History] Sennosides [Senokot] 8.6 mg PO BID tab 03/12/23 [Rx] Follow up Appointment(s)/Referral(s): Alexandro Dawkins [STAFF PHYSICIAN] - 03/14/23 3:30 pm Crystal Kramer DO [Doctor of Osteopathic Medicine] - 3 Weeks Katja Jefferson DO [Primary Care Provider] - 3 Days Ambulatory/Diagnostic Orders: Complete Blood Count w/diff [LAB.AMB] Time Frame: 3 Days, Location: None Selected Patient Instructions/Handouts: Chronic Myeloid Leukemia (DC), Chronic Myeloid Leukemia (GEN), Anemia (DC) Activity/Diet/Wound Care/Special Instructions: [facility] is arranging follow-up with hematology for patient's recent diagnosis of CML and is arranging her medications. Genetic testing as per Messi estes.
== END 2023-03-13 14:34 | disposition home or self-care (01) | DRG 841 ==
LOC: EC 14:57 → 3SCARD 16:48
PROVIDERS: ADMIT Family Medicine; ATTEND Family Medicine
PROC: 30233N1 Transfusion of Nonautologous Red Blood Cells into Peripheral Vein, Percutaneous Approach (ICD-10-PCS; principal; 2023-03-10)
DX: C92.10 Chronic myeloid leukemia, BCR/ABL-positive, not having achieved remission (principal); E44.0 Moderate protein-calorie malnutrition; Z68.1 Body mass index [BMI] 19.9 or less, adult; N39.0 Urinary tract infection, site not specified; D63.0 Anemia in neoplastic disease; D47.3 Essential (hemorrhagic) thrombocythemia; D75.839 Thrombocytosis, unspecified; K29.70 Gastritis, unspecified, without bleeding; Z28.21 Immunization not carried out because of patient refusal; G89.29 Other chronic pain; F41.9 Anxiety disorder, unspecified; F32.A Depression, unspecified; I73.00 Raynaud's syndrome without gangrene; M50.223 Other cervical disc displacement at C6-C7 level; M19.011 Primary osteoarthritis, right shoulder; M06.9 Rheumatoid arthritis, unspecified; J38.3 Other diseases of vocal cords; M85.80 Other specified disorders of bone density and structure, unspecified site; K21.9 Gastro-esophageal reflux disease without esophagitis; M51.34 Other intervertebral disc degeneration, thoracic region; R16.1 Splenomegaly, not elsewhere classified; K59.00 Constipation, unspecified; Z86.16 Personal history of COVID-19; Z79.82 Long term (current) use of aspirin; Z79.899 Other long term (current) drug therapy; Z87.11 Personal history of peptic ulcer disease; Z98.1 Arthrodesis status; Z86.14 Personal history of Methicillin resistant Staphylococcus aureus infection; Z79.891 Long term (current) use of opiate analgesic
CPT/HCPCS: 36415; 71046; 72050; 72072; 72146; 74176; 80048; 80053; 81001; 82607; 82728; 82746; 83540; 83550; 83605; 83735; 83880; 83883; 84145; 84165; 84484; 85025; 85027; 85610; 85652; 85730; 86140; 86334; 86850; 86900; 86901; 86920; 88184; 88185; 93005; 94760; 96374; 99285

== ENCOUNTER 2023-06-08 16:05 | Inpatient (IN) | payer MEDICARE, OTHER ==
--- NOTE | 2023-06-08 17:03 | ED ---
GI Bleed HPI - General Chief complaint: GI Bleed Stated complaint: GI Bleed Time Seen by Provider: 06/08/23 16:20 Source: patient, EMS Mode of arrival: EMS Limitations: no limitations - History of Present Illness Initial comments: Patient is a 62-year-old female presenting to the ER with a chief complaint of dizziness and lightheadedness. Patient states she has a history of bleeding ulcers and anemia and her symptoms feel similar to prior events. She reports for the last week she has been having abdominal pain, dizziness, lightheadedness and feeling weak. She states these are the symptoms she feels when her hemoglobin is low. She has required blood transfusions in the past. Patient also is endorsing epigastric abdominal pain. She also states she has been having some recent bouts of dark black stool. Patient denies any blood thinner use. She also states that she has been having some shortness of breath and a pounding in her chest. Denies any hematuria, headache, double blurry vision, peripheral edema. - Related Data Home Medications Medication Instructions Recorded Confirmed Gabapentin 800 mg PO TID 05/01/14 06/08/23 Topiramate 100 mg PO BID 05/01/14 06/08/23 HYDROcodone/APAP 7.5-325MG [[place] 1 tab PO DIRECTED 03/11/16 06/08/23 7.5-325] Baclofen [Lioresal] 20 mg PO HS 07/02/17 06/08/23 Sertraline [Zoloft] 50 mg PO DAILY 07/02/17 06/08/23 buPROPion XL [Wellbutrin XL] 300 mg PO DAILY 07/02/17 06/08/23 Multivit with Calcium,Iron,Min 1 tab PO DAILY 10/21/19 06/08/23 [Women's Multivitamin] Spironolactone [Aldactone] 25 mg PO DAILY 12/21/21 06/08/23 Aspirin [Adult Low Dose Aspirin EC] 81 mg PO Q48H 06/07/22 06/08/23 Clindamycin Phosphate 1 applic TOPICAL BID 01/16/23 06/08/23 Tretinoin [Tretinoin 0.025%] 1 applic TOPICAL HS 01/16/23 06/08/23 Ondansetron Odt [Zofran ODT] 4 mg PO Q6H PRN 03/09/23 06/08/23 HYDROcodone/APAP 5-325MG [[place] 1 tab PO QID 06/08/23 06/08/23 5-325] Imatinib Mesylate 400 mg PO Q48H 06/08/23 06/08/23 Previous Rx's Medication Instructions Recorded Omeprazole [PriLOSEC] 20 mg PO AC-BRKFST #90 cap 06/09/22 Lactulose [Cephulac] 30 gm PO BID PRN #600 ml 01/20/23 Allergies Allergy/AdvReac Type Severity Reaction Status Date / Time metronidazole [From Flagyl] Allergy Itching, Verified 06/08/23 17:41 BURNING OF SKIN Review of Systems ROS Statement: Those systems with pertinent positive or pertinent negative responses have been documented in the HPI. ROS Other: All systems not noted in ROS Statement are negative. Past Medical History Past Medical History: GERD/Reflux, Pneumonia, Rheumatoid Arthritis (RA) Additional Past Medical History / Comment(s): IP ADMISSION FORGASTRIC ULCER IN MAY 2022 WITH HIGH PLATELET & WHITE COUNT THROMBYTOSIS- (SEES DR DAWKINS). COPD, leukoplakia of the vocal cords, chronic shoulder back and neck pain, acid reflux, depression, raynaud's syndrome. takes aldactone for hair loss. History of Any Multi-Drug Resistant Organisms: MRSA Date of last positivie culture/infection: 05/03/19 MDRO Source:: MRSA FACE Past Surgical History: Back Surgery, Cholecystectomy, Hernia Repair, Orthopedic Surgery, Tonsillectomy Additional Past Surgical History / Comment(s): arthroscopic shoulder, vocal cord scraping, dariana fundoplasty, CERVICAL FUSSION, recent EGD, colonoscopy. VENTRAL HERNIA. Past Anesthesia/Blood Transfusion Reactions: Blood Transfusion Reaction Additional Past Anesthesia/Blood Transfusion Reaction / Comment(s): TRANSFUSIONS WITH GASTRIC ULCER Past Psychological History: Anxiety, Depression Smoking Status: Current every day smoker Past Alcohol Use History: None Reported Past Drug Use History: None Reported - Past Family History Mother History Unknown: Yes Family Medical History: Cancer Father Family Medical History: Unable to Obtain General Exam Limitations: no limitations Course Vital Signs 06/08/23 06/08/23 16:08 18:15 Temperature 97.2 F L Respiratory 19 Rate Blood Pressure 124/72 112/63 Medical Decision Making - Medical Decision Making Was pt. sent in by a medical professional or institution (Dr., PA, BODY MAKER MACHINE SETTER, urgent care, hospital, or prison...) When possible be specific @ -No Did you speak to anyone other than the patient for history (EMS, parent, family, police, friend...)? What history was obtained from this source @ -No Did you review nursing and triage notes (agree or disagree)? Why? @ -I reviewed and agree with nursing and triage notes Were old charts reviewed (outside hosp., previous admission, EMS record, old EKG, old radiological studies, urgent care reports/EKG's, prison records)? Report findings @ -I reviewed old charts from ER visit and admission on 03-09-2023. Patient was diagnosed with anemia and received blood transfusions. Differential Diagnosis (chest pain, altered mental status, abdominal pain women, abdominal pain men, vaginal bleeding, weakness, fever, dyspnea, syncope, headache, dizziness, GI bleed, back pain, seizure, CVA, palpatations, mental health, musculoskeletal)? @ -Differential GI Bleed: Esophageal varices, aortoenteric fistula, Faith-W eiss, gastritis, peptic ulcer disease, diverticulosis, inflammatory bowel disease, hemorrhoids, fissure, colitis, malignancy, Meckels diverticulum, this is not meant to be an all-inclusive list. EKG interpreted by me (3pts min.). @ -As above X-rays interpreted by me (1pt min.). @ -None done CT interpreted by me (1pt min.). @ -None done U/S interpreted by me (1pt. min.). @ -None done What testing was considered but not performed or refused? (CT, X-rays, U/S, labs)? Why? @ -None What meds were considered but not given or refused? Why? @ -None Did you discuss the management of the patient with other professionals (professionals i.e. BEBETO Espinal, BODY MAKER MACHINE SETTER, lab, RT, psych nurse, school social worker, global consumer sector vice president, teacher, [employer] officer, foster care case manager)? Give summary @ -Yes, I discussed this case with Dr. Alexis who stated admit to medicine with surgery on consult. I also spoke with Mason Guerra from [facility] who accepted medical admission. Was smoking cessation discussed for >3mins.? @ -No Was critical care preformed (if so, how long)? @ -No Were there social determinants of health that impacted care today? How? (Homelessness, low income, unemployed, alcoholism, drug addiction, transportation, low edu. Level, literacy, decrease access to med. care, [facility], rehab)? @ -No Was there de-escalation of care discussed even if they declined (Discuss DNR or withdrawal of care, Hospice)? DNR status @ -No What co-morbidities impacted this encounter? (DM, HTN, Smoking, COPD, CAD, Cancer, CVA, ARF, Chemo, Hep., AIDS, mental health diagnosis, sleep apnea, morbid obesity)? @ -CML, GI bleed, RA Was patient admitted / discharged? Hospital course, mention meds given and route, prescriptions, significant lab abnormalities, going to OR and other pertinent info. @ -Admitted. Patient is a 62-year-old female presented to ER with a chief complaint of weakness and dark stools x 1 week. Patient has a past medical history significant for CML sees Dr. Dawkins and GI bleed. She has received blood transfusions in the past. Vitals stable. History and physical exam were completed. Rectal exam completed and chaperoned by Radha Grijalva RN. Labs obtained in the ER significant for Hgb 6.1, Hct 19.9, Plt count 1260, stool occult positive. EKG showed sinus rhythm with no acute evidence of infarct or ischemia. Due to anemia and need for blood transfusion and admission was considered. I discussed his case with Dr. Alexis who will be on consult. I also spoke with Mason Guerra from [facility] who accepted medical admission. Heme/Onc on consult as well. Blood transfusion ordered. Patient started on IV protonix. Patient given IV Dilaudid and Zofran for symptom control. Discussed results with patient who is agreeable for admission. Patient be admitted for further care and treatment. Patient expressed understanding and agreement with plan. Undiagnosed new problem with uncertain prognosis? @ -No Drug Therapy requiring intensive monitoring for toxicity (Heparin, Nitro, Insulin, Cardizem)? @ -No Were any procedures done? @ -No Diagnosis/symptom? @ -Anemia/GI bleed Acute, or Chronic, or Acute on Chronic? @ -Acute Uncomplicated (without systemic symptoms) or Complicated (systemic symptoms)? @ -Uncomplicated Side effects of treatment? @ -No Exacerbation, Progression, or Severe Exacerbation? @ -No Poses a threat to life or bodily function? How? (Chest pain, USA, IA, pneumonia, PE, COPD, DKA, ARF, appy, cholecystitis, CVA, Diverticulitis, Homicidal, Suicidal, threat to staff... and all critical care pts) @ -No - Lab Data Result diagrams: 06/08/23 16:23 06/08/23 16:23 Lab Results 06/08/23 06/08/23 06/08/23 Range/Units 16:23 16:23 17:14 WBC 15.5 H (3.8-10.6) k/uL RBC 2.15 L (3.80-5.40) m/uL Hgb 6.1 L* (11.4-16.0) gm/dL Hct 19.9 L* (34.0-46.0) % MCV 92.6 (80.0-100.0) fL MCH 28.3 (25.0-35.0) pg MCHC 30.6 L (31.0-37.0) g/dL RDW 26.7 H (11.5-15.5) % Plt Count 1260 H* (150-450) k/uL MPV 8.3 Hypochromasia Marked Poikilocytosis Slight Anisocytosis Marked Microcytosis Slight Macrocytosis Moderate Sodium 139 (137-145) mmol/L Potassium 4.2 (3.5-5.1) mmol/L Chloride 109 H (98-107) mmol/L Carbon Dioxide 22 (22-30) mmol/L Anion Gap 8 mmol/L BUN 19 H (7-17) mg/dL Creatinine 0.89 (0.52-1.04) mg/dL Est GFR (CKD-EPI)AfAm 82 (>60 ml/min/1.73 sqM) Est GFR (CKD-EPI)NonAf 71 (>60 ml/min/1.73 sqM) Glucose 86 (74-99) mg/dL Calcium 9.3 (8.4-10.2) mg/dL Total Bilirubin 0.4 (0.2-1.3) mg/dL AST 33 (14-36) U/L ALT 18 (4-34) U/L Alkaline Phosphatase 74 (38-126) U/L Total Protein 6.4 (6.3-8.2) g/dL Albumin 3.8 (3.5-5.0) g/dL Stool Occult Blood Positive H (Negative) - EKG Data -: EKG Interpreted by Me EKG Comments: EKG taken at 17: 13 shows normal sinus rhythm with no acute ST segment or T wave abnormalities. Ventricular rate 82, TN interval 107, QRS duration 93, QT/QTc 358/397. Disposition Clinical Impression: Anemia, GI bleed, Thrombocytosis Disposition: ADMITTED IP TO THIS HOSP Condition: Fair Time of Disposition: 18:33
[2023-06-08 17:06] LABS: Anisocytosis Marked; Hypochromasia Marked; MCH 28.3 pg (25.0-35.0); MCHC 30.6 g/dL (31.0-37.0); MCV 92.6 fL (80.0-100.0); Macrocytosis Moderate; Mean Platelet Volume 8.3; Microcytosis Slight; Poikilocytosis Slight; RBC 2.15 m/uL (3.80-5.40); WBC 15.5 k/uL (3.8-10.6)
[2023-06-08 17:11] LABS: HGB 6.1 gm/dL (11.4-16.0)
[2023-06-08 17:12] LABS: HCT 19.9 % (34.0-46.0); Platelet Count 1260 k/uL (150-450); RDW 26.7 % (11.5-15.5)
[2023-06-08 17:26] LABS: ALT 18 U/L (4-34); AST 33 U/L (14-36); African American GFR (CKD) 82 (>60 ml/min/1.73 sqM); Albumin 3.8 g/dL (3.5-5.0); Alkaline Phosphatase 74 U/L (38-126); Anion Gap 8 mmol/L; Blood Urea Nitrogen 19 mg/dL (7-17); Calcium 9.3 mg/dL (8.4-10.2); Carbon Dioxide 22 mmol/L (22-30); Chloride 109 mmol/L (98-107); Glucose 86 mg/dL (74-99); Non-African American GFR(CKD) 71 (>60 ml/min/1.73 sqM); Potassium 4.2 mmol/L (3.5-5.1); Sodium 139 mmol/L (137-145); Total Bilirubin 0.4 mg/dL (0.2-1.3); Total Protein 6.4 g/dL (6.3-8.2)
[2023-06-08] MEDS ORDERED: NALOXONE 0.4 MG/ML 1 ML VIAL IV PRN (17:55)
[2023-06-08] MEDS: METOCLOPRAMIDE 5 MG/ML 2 ML VIAL IVP STA (18:23)
[2023-06-08] MEDS: SODIUM CHLORIDE 0.9% 1,000 ML IV SCH (18:28)
[2023-06-08] MEDS: PANTOPRAZOLE 40 MG/10 ML VIAL IVP STA (18:32)
[2023-06-08] MEDS: PANTOPRAZOLE 40 MG/10 ML VIAL IVP SCH (21:52)
[2023-06-08] MEDS: HYDROmorphone 0.5 MG/0.5 ML SYRINGE IVP PRN (21:52)
[2023-06-08 23:18] LABS: Appearance,Urine Clear (Clear); Bacteria,Urine Moderate /hpf; Bilirubin,Urine Negative (Negative); Blood,Urine Small (Negative); Color,Urine Light Yellow; Glucose,Urine (UA) Negative (Negative); Ketones,Urine Negative (Negative); Leukocyte Esterase,Urine Small (Negative); Mucus,Urine Rare /hpf; Nitrite,Urine Negative (Negative); Protein,Urine Negative (Negative); RBC,Urine 19 /hpf (0-5); Specific Gravity,Urine 1.013 (1.001-1.035); Squamous Epithelial Cell,Urine <1 /hpf (0-4); Urobilinogen,Urine <2.0 mg/dL (<2.0); WBC,Urine 27 /hpf (0-5)
[2023-06-09 09:36] LABS: Anisocytosis Marked; HCT 25.4 % (34.0-46.0); Hypochromasia Marked; MCH 29.4 pg (25.0-35.0); MCHC 30.2 g/dL (31.0-37.0); MCV 97.3 fL (80.0-100.0); Macrocytosis Moderate; Microcytosis Slight; RBC 2.61 m/uL (3.80-5.40); RDW 24.5 % (11.5-15.5)
[2023-06-09 09:50] LABS: HGB 7.7 gm/dL (11.4-16.0); Platelet Count 1159 k/uL (150-450)
[2023-06-09] MEDS: HYDROcodone/APAP 5-325MG 1 EACH TAB PO SCH (09:54)
[2023-06-09] MEDS: GABAPENTIN 400 MG CAP PO SCH (09:54)
[2023-06-09] MEDS: SPIRONOLACTONE 25 MG TAB PO SCH (09:54)
[2023-06-09] MEDS: SERTRALINE 50 MG TAB PO SCH (09:54)
[2023-06-09] MEDS: TOPIRAMATE 100 MG TAB PO SCH (09:54)
[2023-06-09 10:37] LABS: Band Neutrophils % 2 %; Myelocytes % 2 %; Neutrophils % (M) 72 %; Nucleated Red Blood Cells 2 /100 WBC (0-0); Total Cells Counted 200
[2023-06-09 10:38] LABS: Basophils # (M) 0.58 k/uL (0-0.2); Eosinophils # (M) 0.23 k/uL (0-0.7); Lymphocytes # (M) 1.39 k/uL (1.0-4.8); Monocytes # (M) 0.81 k/uL (0-1.0); Myelocytes # (M) 0.23 k/uL (0); Target Cells Present; WBC 11.6 k/uL (3.8-10.6)
[2023-06-09 10:42] LABS: Polychromasia Present
[2023-06-09 10:44] LABS: Tear Drop Cells Present
[2023-06-09 11:08] LABS: ALT 16 U/L (4-34); AST 32 U/L (14-36); African American GFR (CKD) >90 (>60 ml/min/1.73 sqM); Alkaline Phosphatase 62 U/L (38-126); Anion Gap 3 mmol/L; Blood Urea Nitrogen 11 mg/dL (7-17); Calcium 8.3 mg/dL (8.4-10.2); Carbon Dioxide 22 mmol/L (22-30); Chloride 113 mmol/L (98-107); Glucose 106 mg/dL (74-99); Non-African American GFR(CKD) 87 (>60 ml/min/1.73 sqM); Potassium 4.2 mmol/L (3.5-5.1); Sodium 138 mmol/L (137-145); Total Bilirubin 0.4 mg/dL (0.2-1.3); Total Protein 5.4 g/dL (6.3-8.2)
[2023-06-09] MEDS: buPROPion XL 300 MG TAB.ER.24H PO SCH (12:53)
[2023-06-09] MEDS ORDERED: HYDROcodone/APAP 5-325MG 1 EACH TAB PO SCH (13:00)
--- NOTE | 2023-06-09 13:01 | P.HPIM ---
History of Present Illness H&P Date: 06/09/23 History of present illness; patient is 62-year-old lady with past medical history significant for essential thrombocythemia, CML, gastric ulcer, depression, hypertension, anemia presented to ER because of complaint of lightheadedness and dizziness. Patient stated that he has been feeling weak and dizzy for the last week. Patient was also complaining of epigastric pain. Patient denied any complaint of nausea or vomiting but did notice that her stools were dark in color. Patient has history of prior peptic ulcer disease and has been scoped in 12/2022 which showed healed ulcer. Patient has been complaining of dizziness and lightheadedness and the symptoms are similar to when her hemoglobin is low. Patient also complains of shortness of breath on exertion. Denied any palpitations. There was no complaint of orthopnea or PND. Patient did notice some pressure-like sensation in her chest. Because of the symptoms, patient came to the ER Initial lab work done in the ER showed WBC 15.5, hemoglobin 6.1, platelet count 1260, sodium 139, potassium 4.2, BUN 19, creatinine 0.89, total bilirubin 0.4, AST 33, ALT 18 FOBT positive EKG done in the ER showed heart rate of 82 , no ST segment elevation or depression seen, no T-wave inversions seen. Patient admitted to internal medicine service REVIEW OF SYSTEMS: CONSTITUTIONAL: Mentioned HPI HEENT: No recent visual problems or hearing problems. Denied any sore throat. CARDIOVASCULAR: As mentioned in HPI PULMONARY: As mentioned in HPI. GASTROINTESTINAL: As mentioned in HPI NEUROLOGICAL: No headaches, no weakness, no numbness. HEMATOLOGICAL: Denies any bleeding or petechiae. GENITOURINARY: Denies any burning micturition, frequency, or urgency. MUSCULOSKELETAL/RHEUMATOLOGICAL: Denies any joint pain, swelling, or any muscle pain. ENDOCRINE: Denies any polyuria or polydipsia. The rest of the 14-point review of systems is negative. PHYSICAL EXAMINATION: GENERAL: The patient is alert and oriented x3, not in any acute distress. Well developed, well nourished. HEENT: Pupils are round and equally reacting to light. EOMI. No scleral icterus. No conjunctival pallor. Normocephalic, atraumatic. No pharyngeal erythema. No th yromegaly. CARDIOVASCULAR: S1 and S2 present. No murmurs, rubs, or gallops. PULMONARY: Chest is clear to auscultation, no wheezing or crackles. ABDOMEN: Soft, nontender, nondistended, normoactive bowel sounds. No palpable organomegaly. MUSCULOSKELETAL: No joint swelling or deformity. EXTREMITIES: No cyanosis, clubbing, or pedal edema. NEUROLOGICAL: Gross neurological examination did not reveal any focal deficits. SKIN: No rashes. 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 Continue same treatment. Continue with symptomatic treatment. Resume home medication. Monitor labs and vitals. DVT and GI prophylaxis. Further recommendations as per clinical course of the patient Dictation was produced using [employer] dictation software. please excuse any gramma tical, word or spelling errors. Past Medical History Past Medical History: GERD/Reflux, Pneumonia, Rheumatoid Arthritis (RA) Additional Past Medical History / Comment(s): IP ADMISSION FORGASTRIC ULCER IN MAY 2022 WITH HIGH PLATELET & WHITE COUNT THROMBYTOSIS- (SEES DR REBOLLEDO). COPD, leukoplakia of the vocal cords, chronic shoulder back and neck pain, acid reflux, depression, raynaud's syndrome. takes aldactone for hair loss. CML History of Any Multi-Drug Resistant Organisms: MRSA Date of last positivie culture/infection: 05/03/19 MDRO Source:: MRSA FACE Past Surgical History: Back Surgery, Cholecystectomy, Hernia Repair, Orthopedic Surgery, Tonsillectomy Additional Past Surgical History / Comment(s): arthroscopic shoulder, vocal cord scraping, dariana fundoplasty, CERVICAL FUSSION, recent EGD, colonoscopy. VENTRAL HERNIA. Past Anesthesia/Blood Transfusion Reactions: Blood Transfusion Reaction Additional Past Anesthesia/Blood Transfusion Reaction / Comment(s): TRANSFUSIONS WITH GASTRIC ULCER, no previous reactions Past Psychological History: Anxiety, Depression Additional Psychological History / Comment(s): hx suicidal ideaation Smoking Status: Current every day smoker Past Alcohol Use History: None Reported Additional Past Alcohol Use History / Comment(s): smoked <ppd since age of 20. started smoking again recently, says 1 pack will last her 3days. Past Drug Use History: None Reported - Past Family History Mother History Unknown: Yes Family Medical History: Cancer Father Family Medical History: Unable to Obtain Medications and Allergies Home Medications Medication Instructions Recorded Confirmed Type Gabapentin 800 mg PO TID 05/01/14 06/08/23 History Topiramate 100 mg PO BID 05/01/14 06/08/23 History HYDROcodone/APAP 7.5-325MG [[place] 1 tab PO DIRECTED 03/11/16 06/08/23 History 7.5-325] Baclofen [Lioresal] 20 mg PO HS 07/02/17 06/08/23 History Sertraline [Zoloft] 50 mg PO DAILY 07/02/17 06/08/23 History buPROPion XL [Wellbutrin XL] 300 mg PO DAILY 07/02/17 06/08/23 History Multivit with Calcium,Iron,Min 1 tab PO DAILY 10/21/19 06/08/23 History [Women's Multivitamin] Spironolactone [Aldactone] 25 mg PO DAILY 12/21/21 06/08/23 History Aspirin [Adult Low Dose Aspirin EC] 81 mg PO Q48H 06/07/22 06/08/23 History Omeprazole [PriLOSEC] 20 mg PO AC-BRKFST #90 cap 06/09/22 06/08/23 Rx Clindamycin Phosphate 1 applic TOPICAL BID 01/16/23 06/08/23 History Tretinoin [Tretinoin 0.025%] 1 applic TOPICAL HS 01/16/23 06/08/23 History Lactulose [Cephulac] 30 gm PO BID PRN #600 ml 01/20/23 06/08/23 Rx Ondansetron Odt [Zofran ODT] 4 mg PO Q6H PRN 03/09/23 06/08/23 History HYDROcodone/APAP 5-325MG [[place] 1 tab PO QID 06/08/23 06/08/23 History 5-325] Imatinib Mesylate 400 mg PO Q48H 06/08/23 06/08/23 History Allergies Allergy/AdvReac Type Severity Reaction Status Date / Time metronidazole [From Flagyl] Allergy Itching, Verified 06/08/23 17:41 BURNING OF SKIN Physical Exam Vitals: Vital Signs Temp Pulse Pulse Resp BP BP Pulse Ox 06/09/23 08:32 16 95/55 98 06/09/23 04:56 80 16 92/53 98 06/09/23 02:00 74 06/09/23 01:31 74 16 99/62 99 06/08/23 23:33 80 16 103/64 100 06/08/23 23:13 83 16 96/62 100 06/08/23 23:08 87 06/08/23 23:03 98.4 F 82 16 96/60 100 06/08/23 21:37 98.3 F 87 16 110/60 100 06/08/23 21:10 98.8 F 83 16 106/62 100 06/08/23 18:15 82 17 112/63 99 06/08/23 16:08 97.2 F L 19 124/72 Intake and Output 06/08/23 06/09/23 06/09/23 22:59 06:59 14:59 Intake Total 310 Balance 310 Intake: Blood Product 310 Rc Irr As1 Unit 310 [id number] Other: Voiding Method Toilet # Voids 1 Weight 45.359 kg Results CBC & Chem 7: 06/09/23 09:11 06/09/23 09:11 Labs: Abnormal Lab Results - Last 24 Hours (Table) 06/08/23 06/08/23 06/08/23 Range/Units 16:23 16:23 17:14 WBC 15.5 H (3.8-10.6) k/uL RBC 2.15 L (3.80-5.40) m/uL Hgb 6.1 L* (11.4-16.0) gm/dL Hct 19.9 L* (34.0-46.0) % MCHC 30.6 L (31.0-37.0) g/dL RDW 26.7 H (11.5-15.5) % Plt Count 1260 H* (150-450) k/uL Chloride 109 H (98-107) mmol/L BUN 19 H (7-17) mg/dL Urine Blood (Negative) Ur Leukocyte Esterase (Negative) Urine RBC (0-5) /hpf Urine WBC (0-5) /hpf Urine Bacteria (None) /hpf Urine Mucus (None) /hpf Stool Occult Blood Positive H (Negative) Crossmatch 06/08/23 06/08/23 Range/Units 17:50 22:46 WBC (3.8-10.6) k/uL RBC (3.80-5.40) m/uL Hgb (11.4-16.0) gm/dL Hct (34.0-46.0) % MCHC (31.0-37.0) g/dL RDW (11.5-15.5) % Plt Count (150-450) k/uL Chloride (98-107) mmol/L BUN (7-17) mg/dL Urine Blood Small H (Negative) Ur Leukocyte Esterase Small H (Negative) Urine RBC 19 H (0-5) /hpf Urine WBC 27 H (0-5) /hpf Urine Bacteria Moderate H (None) /hpf Urine Mucus Rare H (None) /hpf Stool Occult Blood (Negative) Crossmatch See Detail Thrombosis Risk Factor Assmnt - Choose All That Apply Any of the Below Risk Factors Present?: Yes Each Factor Represents 1 point: Age 41-60 years Other Risk Factors: No Other congenital or acquired thrombophilia - If yes, enter type in comment: No Thrombosis Risk Factor Assessment Total Risk Factor Score: 1 Thrombosis Risk Factor Assessment Level: Low Risk
[2023-06-09 13:27] VITALS: BMI 18.8
--- NOTE | 2023-06-09 14:31 | P.CONS ---
History of Present Illness - Reason for Consult Consult date: 06/09/23 CML - Chief Complaint Weakness - History of Present Illness Ms. Pickard is a 62-year-old woman with a past medical history significant for CML currently on Gleevec presenting with concern for GI bleeding. Over the past week, she has been having progressive weakness and orthostatic dizziness along with episodes of dark stool, which was semisolid in nature. She notes having feeling like this before when she has had GI bleeding previously due to gastritis. Most recent colonoscopy/EGD in December 2022 revealed no evidence of acute bleeding or malignancy. Given her signs and symptoms, she presented to the ED for additional management. In the ED, blood pressures were noted to be slightly lower than her blood pressures in clinic, but were otherwise stable. Labs are significant for hemogl obin of 6.1 from 9 measured in clinic on 05/23/2023. WBC was 15.5 with platelets 1260. Fecal occult test was positive. She received 1 unit of packed red blood cells and was started on IV pantoprazole and admitted for additional management. CBC this morning revealed appropriate response to transfusion with hemoglobin 7.7, WBC 11.8, platelets 1159. She last took Gleevec yesterday prior to admiss ion. Hemoglobin had been holding steady in the 9 range with platelets of 500s and WBC in the teens. Iron studies on 05/11/2023 in clinic were consistent with iron deficiency and she received Feraheme on 05/17/2023 and 05/23/2023. Review of Systems 14 point review of systems was conducted pertinent positives and negatives as noted per HPI Past Medical History Past Medical History: GERD/Reflux, Pneumonia, Rheumatoid Arthritis (RA) Additional Past Medical History / Comment(s): IP ADMISSION FORGASTRIC ULCER IN MAY 2022 WITH HIGH PLATELET & WHITE COUNT THROMBYTOSIS- (SEES DR REBOLLEDO). COPD, leukoplakia of the vocal cords, chronic shoulder back and neck pain, acid reflux, depression, raynaud's syndrome. takes aldactone for hair loss. CML History of Any Multi-Drug Resistant Organisms: MRSA Year Discovered:: 05/03/19 MDRO Source:: MRSA FACE Past Surgical History: Back Surgery, Cholecystectomy, Hernia Repair, Orthopedic Surgery, Tonsillectomy Additional Past Surgical History / Comment(s): arthroscopic shoulder, vocal cord scraping, dariana fundoplasty, CERVICAL FUSSION, recent EGD, colonoscopy. VENTRAL HERNIA. Past Anesthesia/Blood Transfusion Reactions: Blood Transfusion Reaction Additional Past Anesthesia/Blood Transfusion Reaction / Comm: TRANSFUSIONS WITH GASTRIC ULCER, no previous reactions Past Psychological History: Anxiety, Depression Additional Psychological History / Comment(s): hx suicidal ideaation Smoking Status: Current every day smoker Past Alcohol Use History: None Reported Additional Past Alcohol Use History / Comment(s): smoked <ppd since age of 20. started smoking again recently, says 1 pack will last her 3days. Past Drug Use History: None Reported - Past Family History Mother History Unknown: Yes Family Medical History: Cancer Father Family Medical History: Unable to Obtain Medications and Allergies Home Medications Medication Instructions Recorded Confirmed Type Gabapentin 800 mg PO TID 05/01/14 06/08/23 History Topiramate 100 mg PO BID 05/01/14 06/08/23 History HYDROcodone/APAP 7.5-325MG [[place] 1 tab PO DIRECTED 03/11/16 06/08/23 History 7.5-325] Baclofen [Lioresal] 20 mg PO HS 07/02/17 06/08/23 History Sertraline [Zoloft] 50 mg PO DAILY 07/02/17 06/08/23 History buPROPion XL [Wellbutrin XL] 300 mg PO DAILY 07/02/17 06/08/23 History Multivit with Calcium,Iron,Min 1 tab PO DAILY 10/21/19 06/08/23 History [Women's Multivitamin] Spironolactone [Aldactone] 25 mg PO DAILY 12/21/21 06/08/23 History Aspirin [Adult Low Dose Aspirin EC] 81 mg PO Q48H 06/07/22 06/08/23 History Omeprazole [PriLOSEC] 20 mg PO AC-BRKFST #90 cap 06/09/22 06/08/23 Rx Clindamycin Phosphate 1 applic TOPICAL BID 01/16/23 06/08/23 History Tretinoin [Tretinoin 0.025%] 1 applic TOPICAL HS 01/16/23 06/08/23 History Lactulose [Cephulac] 30 gm PO BID PRN #600 ml 01/20/23 06/08/23 Rx Ondansetron Odt [Zofran ODT] 4 mg PO Q6H PRN 03/09/23 06/08/23 History HYDROcodone/APAP 5-325MG [[place] 1 tab PO QID 06/08/23 06/08/23 History 5-325] Imatinib Mesylate 400 mg PO Q48H 06/08/23 06/08/23 History Allergies Allergy/AdvReac Type Severity Reaction Status Date / Time metronidazole [From Flagyl] Allergy Itching, Verified 06/08/23 17:41 BURNING OF SKIN Physical Exam Vitals: Vital Signs Temp Pulse Pulse Resp BP BP Pulse Ox 06/09/23 12:26 72 15 99/55 97 06/09/23 08:32 16 95/55 98 06/09/23 04:56 80 16 92/53 98 06/09/23 02:00 74 06/09/23 01:31 74 16 99/62 99 06/08/23 23:33 80 16 103/64 100 06/08/23 23:13 83 16 96/62 100 06/08/23 23:08 87 06/08/23 23:03 98.4 F 82 16 96/60 100 06/08/23 21:37 98.3 F 87 16 110/60 100 06/08/23 21:10 98.8 F 83 16 106/62 100 06/08/23 18:15 82 17 112/63 99 06/08/23 16:08 97.2 F L 19 124/72 Intake and Output 06/08/23 06/09/23 06/09/23 22:59 06:59 14:59 Intake Total 310 Balance 310 Intake: Blood Product 310 Rc Irr As1 Unit 310 [id number] Other: Voiding Method Toilet Toilet # Voids 1 1 # Bowel Movements 0 Weight 45.359 kg 45.359 kg - Constitutional Fatigued appearing General appearance: no acute distress - Respiratory Respiratory: bilateral: CTA - Cardiovascular Rhythm: regular - Gastrointestinal General gastrointestinal: no distended, soft, tenderness Localized gastrointestinal: tender: epigastric periumbilical (No rebound or guarding) - Integumentary Integumentary: pale - Neurologic Neurologic: CNII-XII intact - Psychiatric Psychiatric: A&O x's 3, appropriate affect Results CBC & Chem 7: 06/09/23 09:11 06/09/23 09:11 Labs: Abnormal Lab Results - Last 24 Hours (Table) 06/08/23 06/08/23 06/08/23 Range/Units 16:23 16:23 17:14 WBC 15.5 H (3.8-10.6) k/uL RBC 2.15 L (3.80-5.40) m/uL Hgb 6.1 L* (11.4-16.0) gm/dL Hct 19.9 L* (34.0-46.0) % MCHC 30.6 L (31.0-37.0) g/dL RDW 26.7 H (11.5-15.5) % Plt Count 1260 H* (150-450) k/uL Neutrophils # (Manual) (1.3-7.7) k/uL Basophils # (Manual) (0-0.2) k/uL Myelocytes # (Manual) (0) k/uL Nucleated RBCs (0-0) /100 WBC Chloride 109 H (98-107) mmol/L BUN 19 H (7-17) mg/dL Glucose (74-99) mg/dL Calcium (8.4-10.2) mg/dL Total Protein (6.3-8.2) g/dL Albumin (3.5-5.0) g/dL Urine Blood (Negative) Ur Leukocyte Esterase (Negative) Urine RBC (0-5) /hpf Urine WBC (0-5) /hpf Urine Bacteria (None) /hpf Urine Mucus (None) /hpf Stool Occult Blood Positive H (Negative) Crossmatch 06/08/23 06/08/23 06/09/23 Range/Units 17:50 22:46 09:11 WBC 11.6 H (3.8-10.6) k/uL RBC 2.61 L (3.80-5.40) m/uL Hgb 7.7 L D (11.4-16.0) gm/dL Hct 25.4 L (34.0-46.0) % MCHC 30.2 L (31.0-37.0) g/dL RDW 24.5 H (11.5-15.5) % Plt Count 1159 H* (150-450) k/uL Neutrophils # (Manual) 8.50 H (1.3-7.7) k/uL Basophils # (Manual) 0.58 H (0-0.2) k/uL Myelocytes # (Manual) 0.23 H (0) k/uL Nucleated RBCs 2 H (0-0) /100 WBC Chloride (98-107) mmol/L BUN (7-17) mg/dL Glucose (74-99) mg/dL Calcium (8.4-10.2) mg/dL Total Protein (6.3-8.2) g/dL Albumin (3.5-5.0) g/dL Urine Blood Small H (Negative) Ur Leukocyte Esterase Small H (Negative) Urine RBC 19 H (0-5) /hpf Urine WBC 27 H (0-5) /hpf Urine Bacteria Moderate H (None) /hpf Urine Mucus Rare H (None) /hpf Stool Occult Blood (Negative) Crossmatch See Detail 06/09/23 Range/Units 09:11 WBC (3.8-10.6) k/uL RBC (3.80-5.40) m/uL Hgb (11.4-16.0) gm/dL Hct (34.0-46.0) % MCHC (31.0-37.0) g/dL RDW (11.5-15.5) % Plt Count (150-450) k/uL Neutrophils # (Manual) (1.3-7.7) k/uL Basophils # (Manual) (0-0.2) k/uL Myelocytes # (Manual) (0) k/uL Nucleated RBCs (0-0) /100 WBC Chloride 113 H (98-107) mmol/L BUN (7-17) mg/dL Glucose 106 H (74-99) mg/dL Calcium 8.3 L (8.4-10.2) mg/dL Total Protein 5.4 L (6.3-8.2) g/dL Albumin 3.0 L (3.5-5.0) g/dL Urine Blood (Negative) Ur Leukocyte Esterase (Negative) Urine RBC (0-5) /hpf Urine WBC (0-5) /hpf Urine Bacteria (None) /hpf Urine Mucus (None) /hpf Stool Occult Blood (Negative) Crossmatch Assessment and Plan (1) Anemia Current Visit: Yes Status: Acute Priority: Medium Code(s): D64.9 - ANEMIA, UNSPECIFIED SNOMED Code(s): 944073902 (2) Thrombocytosis Current Visit: Yes Status: Chronic Priority: Medium Code(s): D75.839 - THROMBOCYTOSIS, UNSPECIFIED SNOMED Code(s): 4826807 (3) Chronic myeloid leukemia (CML), BCR/ABL-positive Current Visit: No Status: Chronic Priority: High Code(s): C92.10 - CHRONIC MYELOID LEUK, BCR/ABL-POSITIVE, NOT ACHIEVE REMIS SNOMED Code(s): 15473103 (4) Leukocytosis Current Visit: No Status: Chronic Priority: Medium Code(s): D72.829 - ELEVATED WHITE BLOOD CELL COUNT, UNSPECIFIED SNOMED Code(s): 481975410 Plan: #Normocytic normochromic anemia -Review of labs outpatient noted hemoglobin in the 8-9 range -Over the past week, she did have progressive weakness, orthostatic dizziness, and epigastric abdominal pain with intermittent dark/black stools -Hemoglobin on presentation was 6.1 from 9 on 05/23/2023 that was normocytic -Iron studies performed outpatient on 05/11/2023 were consistent with iron deficiency with ferritin of 34 and iron saturation 12% and was treated with Feraheme on 05/17/2023 and 05/23/2023 -She has had prior history of hemorrhagic gastritis with most recent EGD/colonoscopy in December 2022 revealing no bleeding or malignancy -She likely has acute anemia secondary to upper GI bleeding 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 -Repeat iron studies in addition to vitamin B12 and folic acid ordered from today's blood draw -We discussed holding Gleevac until EGD could be performed to rule out GI bleeding -Agree with IV PPI twice daily and EGD for further evaluation -Previous history of hiatal hernia could potentially contribute to gastritis and iron deficiency #Thrombocytosis, acute on chronic -Likely reactive to acute GI bleeding as her platelets were 501 on 05/23/2023 -Chronically, her thrombocytosis is secondary to CML, which has improved since initiating Gleevec in February 2023 -Treatment for GI bleeding as above as well as repeat iron studies as above #CML -Positive BCR-ABL 1 PCR noted in December 2022 -Initiated on Gleevec on 03/14/2023 with progressive decrease in leukocytosis and thrombocytosis -Hold Gleevec while initiating workup for upper GI bleed Luis Hernandez MD
[2023-06-09] MEDS ORDERED: GABAPENTIN 400 MG CAP PO SCH (16:00)
[2023-06-09] MEDS ORDERED: NON FORMULARY DRUG (Clindamycin Phosphate [Clindamycin Phosphate] 30 ML Solution) TOPICAL SCH (21:00)
[2023-06-09] MEDS ORDERED: TOPIRAMATE 100 MG TAB PO SCH (21:00)
[2023-06-09] MEDS: ONDANSETRON 4 MG/2 ML VIAL IVP PRN (21:49)
[2023-06-09] MEDS: MAG HYDROX/AL HYDROX/SIMETH 30 ML CUP PO PRN (21:49)
[2023-06-09] MEDS: BACLOFEN 10 MG TAB PO SCH (21:53)
--- NOTE | 2023-06-09 23:27 | P.GSCN ---
History of Present Illness Consult date: 06/09/23 Reason for Consult: GI bleed History of present illness: The patient has a history of ulcer disease. She is on Gleevac for CML. She had dark stools and Hgb was low. Admitted for transfusion and endoscopy Past Medical History Past Medical History: GERD/Reflux, Pneumonia, Rheumatoid Arthritis (RA) Additional Past Medical History / Comment(s): IP ADMISSION FORGASTRIC ULCER IN MAY 2022 WITH HIGH PLATELET & WHITE COUNT THROMBYTOSIS- (SEES DR REBOLLEDO). COPD, leukoplakia of the vocal cords, chronic shoulder back and neck pain, acid reflux, depression, raynaud's syndrome. takes aldactone for hair loss. CML History of Any Multi-Drug Resistant Organisms: MRSA Year Discovered:: 05/03/19 MDRO Source:: MRSA FACE Past Surgical History: Back Surgery, Cholecystectomy, Hernia Repair, Orthopedic Surgery, Tonsillectomy Additional Past Surgical History / Comment(s): arthroscopic shoulder, vocal cord scraping, dariana fundoplasty, CERVICAL FUSSION, recent EGD, colonoscopy. VENTRAL HERNIA. Past Anesthesia/Blood Transfusion Reactions: Blood Transfusion Reaction Additional Past Anesthesia/Blood Transfusion Reaction / Comm: TRANSFUSIONS WITH GASTRIC ULCER, no previous reactions Past Psychological History: Anxiety, Depression Additional Psychological History / Comment(s): hx suicidal ideaation Smoking Status: Current every day smoker Past Alcohol Use History: None Reported Additional Past Alcohol Use History / Comment(s): smoked <ppd since age of 20. started smoking again recently, says 1 pack will last her 3days. Past Drug Use History: None Reported - Past Family History Mother History Unknown: Yes Family Medical History: Cancer Father Family Medical History: Unable to Obtain Medications and Allergies Home Medications Medication Instructions Recorded Confirmed Type Gabapentin 800 mg PO TID 05/01/14 06/08/23 History Topiramate 100 mg PO BID 05/01/14 06/08/23 History HYDROcodone/APAP 7.5-325MG [[place] 1 tab PO DIRECTED 03/11/16 06/08/23 History 7.5-325] Baclofen [Lioresal] 20 mg PO HS 07/02/17 06/08/23 History Sertraline [Zoloft] 50 mg PO DAILY 07/02/17 06/08/23 History buPROPion XL [Wellbutrin XL] 300 mg PO DAILY 07/02/17 06/08/23 History Multivit with Calcium,Iron,Min 1 tab PO DAILY 10/21/19 06/08/23 History [Women's Multivitamin] Spironolactone [Aldactone] 25 mg PO DAILY 12/21/21 06/08/23 History Aspirin [Adult Low Dose Aspirin EC] 81 mg PO Q48H 06/07/22 06/08/23 History Omeprazole [PriLOSEC] 20 mg PO AC-BRKFST #90 cap 06/09/22 06/08/23 Rx Clindamycin Phosphate 1 applic TOPICAL BID 01/16/23 06/08/23 History Tretinoin [Tretinoin 0.025%] 1 applic TOPICAL HS 01/16/23 06/08/23 History Lactulose [Cephulac] 30 gm PO BID PRN #600 ml 01/20/23 06/08/23 Rx Ondansetron Odt [Zofran ODT] 4 mg PO Q6H PRN 03/09/23 06/08/23 History HYDROcodone/APAP 5-325MG [[place] 1 tab PO QID 06/08/23 06/08/23 History 5-325] Imatinib Mesylate 400 mg PO Q48H 06/08/23 06/08/23 History Allergies Allergy/AdvReac Type Severity Reaction Status Date / Time metronidazole [From Flagyl] Allergy Itching, Verified 06/08/23 17:41 BURNING OF SKIN Surgical - Exam Vital Signs Temp Resp BP 97.2 F L 19 124/72 06/08/23 16:08 06/08/23 16:08 06/08/23 16:08 Patient Seen Date: 06/09/23 Patient Seen Time: 10:00 - Abdomen Abdomen: tender (mild tenderness in central abdomen) Results - Labs 06/09/23 09:11 06/09/23 09:11 Abnormal Lab Results - Last 24 Hours (Table) 06/08/23 06/08/23 06/08/23 Range/Units 16:23 17:50 22:46 WBC (3.8-10.6) k/uL RBC (3.80-5.40) m/uL Hgb (11.4-16.0) gm/dL Hct (34.0-46.0) % MCHC (31.0-37.0) g/dL RDW (11.5-15.5) % Plt Count (150-450) k/uL Neutrophils # (Manual) (1.3-7.7) k/uL Basophils # (Manual) (0-0.2) k/uL Myelocytes # (Manual) (0) k/uL Nucleated RBCs (0-0) /100 WBC Chloride 109 H (98-107) mmol/L BUN 19 H (7-17) mg/dL Glucose (74-99) mg/dL Calcium (8.4-10.2) mg/dL Total Protein (6.3-8.2) g/dL Albumin (3.5-5.0) g/dL Urine Blood Small H (Negative) Ur Leukocyte Esterase Small H (Negative) Urine RBC 19 H (0-5) /hpf Urine WBC 27 H (0-5) /hpf Urine Bacteria Moderate H (None) /hpf Urine Mucus Rare H (None) /hpf Crossmatch See Detail 06/09/23 06/09/23 Range/Units 09:11 09:11 WBC 11.6 H (3.8-10.6) k/uL RBC 2.61 L (3.80-5.40) m/uL Hgb 7.7 L D (11.4-16.0) gm/dL Hct 25.4 L (34.0-46.0) % MCHC 30.2 L (31.0-37.0) g/dL RDW 24.5 H (11.5-15.5) % Plt Count 1159 H* (150-450) k/uL Neutrophils # (Manual) 8.50 H (1.3-7.7) k/uL Basophils # (Manual) 0.58 H (0-0.2) k/uL Myelocytes # (Manual) 0.23 H (0) k/uL Nucleated RBCs 2 H (0-0) /100 WBC Chloride 113 H (98-107) mmol/L BUN (7-17) mg/dL Glucose 106 H (74-99) mg/dL Calcium 8.3 L (8.4-10.2) mg/dL Total Protein 5.4 L (6.3-8.2) g/dL Albumin 3.0 L (3.5-5.0) g/dL Urine Blood (Negative) Ur Leukocyte Esterase (Negative) Urine RBC (0-5) /hpf Urine WBC (0-5) /hpf Urine Bacteria (None) /hpf Urine Mucus (None) /hpf Crossmatch Diabetes panel 06/08/23 06/09/23 Range/Units 16:23 09:11 Sodium 139 138 (137-145) mmol/L Potassium 4.2 4.2 (3.5-5.1) mmol/L Chloride 109 H 113 H (98-107) mmol/L Carbon Dioxide 22 22 (22-30) mmol/L BUN 19 H 11 (7-17) mg/dL Creatinine 0.89 0.75 (0.52-1.04) mg/dL Glucose 86 106 H (74-99) mg/dL Calcium 9.3 8.3 L (8.4-10.2) mg/dL AST 33 32 (14-36) U/L ALT 18 16 (4-34) U/L Alkaline Phosphatase 74 62 (38-126) U/L Total Protein 6.4 5.4 L (6.3-8.2) g/dL Albumin 3.8 3.0 L (3.5-5.0) g/dL Calcium panel 06/08/23 06/09/23 Range/Units 16:23 09:11 Calcium 9.3 8.3 L (8.4-10.2) mg/dL Albumin 3.8 3.0 L (3.5-5.0) g/dL Pituitary panel 06/08/23 06/09/23 Range/Units 16:23 09:11 Sodium 139 138 (137-145) mmol/L Potassium 4.2 4.2 (3.5-5.1) mmol/L Chloride 109 H 113 H (98-107) mmol/L Carbon Dioxide 22 22 (22-30) mmol/L BUN 19 H 11 (7-17) mg/dL Creatinine 0.89 0.75 (0.52-1.04) mg/dL Glucose 86 106 H (74-99) mg/dL Calcium 9.3 8.3 L (8.4-10.2) mg/dL Adrenal panel 06/08/23 06/09/23 Range/Units 16:23 09:11 Sodium 139 138 (137-145) mmol/L Potassium 4.2 4.2 (3.5-5.1) mmol/L Chloride 109 H 113 H (98-107) mmol/L Carbon Dioxide 22 22 (22-30) mmol/L BUN 19 H 11 (7-17) mg/dL Creatinine 0.89 0.75 (0.52-1.04) mg/dL Glucose 86 106 H (74-99) mg/dL Calcium 9.3 8.3 L (8.4-10.2) mg/dL Total Bilirubin 0.4 0.4 (0.2-1.3) mg/dL AST 33 32 (14-36) U/L ALT 18 16 (4-34) U/L Alkaline Phosphatase 74 62 (38-126) U/L Total Protein 6.4 5.4 L (6.3-8.2) g/dL Albumin 3.8 3.0 L (3.5-5.0) g/dL Assessment and Plan Assessment: Anemaia and clinical GI bleed with stable vitals for endoscopy on Sunday. Time with Patient: Less than 30
[2023-06-10] MEDS ORDERED: TOPIRAMATE 100 MG TAB PO SCH (09:00)
[2023-06-10] MEDS ORDERED: buPROPion XL 300 MG TAB.ER.24H PO SCH (09:00)
[2023-06-10] MEDS ORDERED: SPIRONOLACTONE 25 MG TAB PO SCH (09:00)
[2023-06-10] MEDS ORDERED: SERTRALINE 50 MG TAB PO SCH (09:00)
[2023-06-10 09:17] LABS: Anisocytosis Marked; HCT 25.6 % (34.0-46.0); HGB 7.8 gm/dL (11.4-16.0); Hypochromasia Marked; MCH 29.8 pg (25.0-35.0); MCHC 30.5 g/dL (31.0-37.0); MCV 97.8 fL (80.0-100.0); Macrocytosis Moderate; Mean Platelet Volume 8.2; Microcytosis Slight; Poikilocytosis Slight; RBC 2.61 m/uL (3.80-5.40); RDW 24.7 % (11.5-15.5); WBC 9.7 k/uL (3.8-10.6)
[2023-06-10 09:23] LABS: Platelet Count 1262 k/uL (150-450)
--- NOTE | 2023-06-10 11:07 | P.PN ---
Subjective Progress Note Date: 06/10/23 Patient states she feels better today. Her hemoglobin is 7.2. On exam vital signs were stable. Abdomen soft. Patient send for EGD tomorrow. Objective - Vital Signs Vital signs: Vital Signs Temp 98.3 F 06/10/23 08:38 Pulse 81 06/10/23 08:38 Resp 16 06/10/23 08:38 BP 100/68 06/10/23 08:38 Pulse Ox 100 06/10/23 08:38 FiO2 Intake & Output 06/09/23 06/10/23 06/10/23 18:59 06:59 18:59 Intake Total 360 Balance 360 Weight 45.359 kg Intake: Oral 360 Other: Voiding Method Toilet Toilet Toilet # Voids 1 # Bowel Movements 0 - Labs CBC & Chem 7: 06/10/23 08:18 06/09/23 09:11 Labs: Abnormal Lab Results - Last 24 Hours (Table) 06/08/23 06/09/23 06/10/23 Range/Units 16:23 09:11 08:18 RBC 2.61 L (3.80-5.40) m/uL Hgb 7.8 L (11.4-16.0) gm/dL Hct 25.6 L (34.0-46.0) % MCHC 30.5 L (31.0-37.0) g/dL RDW 24.7 H (11.5-15.5) % Plt Count 1262 H* (150-450) k/uL Chloride 113 H (98-107) mmol/L Glucose 106 H (74-99) mg/dL Calcium 8.3 L (8.4-10.2) mg/dL Total Protein 5.4 L (6.3-8.2) g/dL Albumin 3.0 L (3.5-5.0) g/dL Folate 40.00 H (4.40-31.00) ng/mL
--- NOTE | 2023-06-10 11:49 | P.PN ---
Subjective Progress Note Date: 06/10/23 patient is 62-year-old lady with past medical history significant for essential thrombocythemia, CML, gastric ulcer, depression, hypertension, anemia presented to ER because of complaint of lightheadedness and dizziness. Patient stated that he has been feeling weak and dizzy for the last week. Patient was also complaining of epigastric pain. Patient denied any complaint of nausea or vomiting but did notice that her stools were dark in color. Patient has history of prior peptic ulcer disease and has been scoped in 12/2022 which showed healed ulcer. Patient has been complaining of dizziness and lightheadedness and the symptoms are similar to when her hemoglobin is low. Patient also complains of shortness of breath on exertion. Denied any palpitations. There was no complaint of orthopnea or PND. Patient did notice some pressure-like sensation in her chest. Because of the symptoms, patient came to the ER Initial lab work done in the ER showed WBC 15.5, hemoglobin 6.1, platelet count 1260, sodium 139, potassium 4.2, BUN 19, creatinine 0.89, total bilirubin 0.4, AST 33, ALT 18 FOBT positive EKG done in the ER showed heart rate of 82 , no ST segment elevation or depression seen, no T-wave inversions seen. Patient admitted to internal medicine service 06/10. Patient seen and examined. No complain of bloody stools. Denies any abdominal pain REVIEW OF SYSTEMS: CONSTITUTIONAL: No fever, no malaise,. CARDIOVASCULAR: No chest pain, no palpitations, no syncope. PULMONARY: No shortness of breath, no cough, GASTROINTESTINAL: No diarrhea, no nausea, no vomiting, no abdominal pain. NEUROLOGICAL: No headaches, no weakness, PHYSICAL EXAMINATION: GENERAL: The patient is alert and oriented x3, not in any acute distress. Well developed, well nourished. HEENT: Pupils are round and equally reacting to light. EOMI. No scleral icterus. No conjunctival pallor. Normocephalic, atraumatic. No pharyngeal erythema. No thyromegaly. CARDIOVASCULAR: S1 and S2 present. No murmurs, rubs, or gallops. PULMONARY: Chest is clear to auscultation, no wheezing or crackles. ABDOMEN: Soft, nontender, nondistended, normoactive bowel sounds. No palpable organomegaly. MUSCULOSKELETAL: No joint swelling or deformity. EXTREMITIES: No cyanosis, clubbing, or pedal edema. NEUROLOGICAL: Gross neurological examination did not reveal any focal deficits. SKIN: No rashes. Assessment and plan GI bleed Acute blood loss anemia on chronic anemia CML Essential thrombocythemia Leukocytosis,thrombocythemia secondary to CML Gradually Worsening splenomegaly secondary to CML History of COPD, stable Hypertension GERD Rheumatoid arthritis History of anxiety/depression Continued ongoing nicotine dependence Moderate calorie protein malnutrition Monitor vital signs Monitor CBC Monitor CMP Continue telemetry monitoring Transfuse for hemoglobin less than 7. Continue IV Protonix 40 mg twice a day Continue antiemetics continue IV fluids Surgery evaluated the patient, planning endoscopy on Sunday, n.p.o. after midnight. hematology oncology following, recommend holding Gleevec while being worked up for GI bleed Continue home meds Labs and medication were reviewed.. Continue same treatment. Continue with symptomatic treatment. Resume home medication. Monitor labs and vitals. DVT and GI prophylaxis. Further recommendations as per clinical course of the patient Dictation was produced using [employer] dictation software. please excuse any grammatical, word or spelling errors. Objective - Vital Signs Vital signs: Vital Signs Temp 98.3 F 06/10/23 08:38 Pulse 81 06/10/23 08:38 Resp 16 06/10/23 08:38 BP 100/68 06/10/23 08:38 Pulse Ox 100 06/10/23 08:38 FiO2 Intake & Output 06/09/23 06/10/23 06/10/23 18:59 06:59 18:59 Intake Total 360 Balance 360 Weight 45.359 kg Intake: Oral 360 Other: Voiding Method Toilet Toilet # Voids 1 # Bowel Movements 0 - Labs CBC & Chem 7: 06/10/23 08:18 06/09/23 09:11 Labs: Abnormal Lab Results - Last 24 Hours (Table) 06/08/23 06/08/23 06/09/23 Range/Units 16:23 16:23 09:11 WBC 11.6 H (3.8-10.6) k/uL RBC 2.61 L (3.80-5.40) m/uL Hgb 7.7 L D (11.4-16.0) gm/dL Hct 25.4 L (34.0-46.0) % MCHC 30.2 L (31.0-37.0) g/dL RDW 24.5 H (11.5-15.5) % Plt Count 1159 H* (150-450) k/uL Neutrophils # (Manual) 8.50 H (1.3-7.7) k/uL Basophils # (Manual) 0.58 H (0-0.2) k/uL Myelocytes # (Manual) 0.23 H (0) k/uL Nucleated RBCs 2 H (0-0) /100 WBC Chloride 109 H (98-107) mmol/L BUN 19 H (7-17) mg/dL Glucose (74-99) mg/dL Calcium (8.4-10.2) mg/dL Total Protein (6.3-8.2) g/dL Albumin (3.5-5.0) g/dL Folate 40.00 H (4.40-31.00) ng/mL 06/09/23 Range/Units 09:11 WBC (3.8-10.6) k/uL RBC (3.80-5.40) m/uL Hgb (11.4-16.0) gm/dL Hct (34.0-46.0) % MCHC (31.0-37.0) g/dL RDW (11.5-15.5) % Plt Count (150-450) k/uL Neutrophils # (Manual) (1.3-7.7) k/uL Basophils # (Manual) (0-0.2) k/uL Myelocytes # (Manual) (0) k/uL Nucleated RBCs (0-0) /100 WBC Chloride 113 H (98-107) mmol/L BUN (7-17) mg/dL Glucose 106 H (74-99) mg/dL Calcium 8.3 L (8.4-10.2) mg/dL Total Protein 5.4 L (6.3-8.2) g/dL Albumin 3.0 L (3.5-5.0) g/dL Folate (4.40-31.00) ng/mL
[2023-06-10 14:54] LABS: % Iron Saturation 22.43 (12.00-45.00); Iron 61 UG/DL (50-170); Total Iron Binding Capacity 272 UG/DL (228-460); Vitamin B12 >3600.0 pg/mL (200.0-944.0)
[2023-06-10] MEDS: DOCUSATE 100 MG CAP PO SCH (21:24)
[2023-06-10] MEDS: SIMETHICONE 80 MG CHEWABLE PO PRN (21:37)
[2023-06-11 07:16] LABS: Anisocytosis Marked; Basophils # (A) 0.3 k/uL (0-0.2); Basophils % (A) 3 %; Eosinophils # (A) 0.3 k/uL (0-0.7); Eosinophils % (A) 4 %; HCT 25.7 % (34.0-46.0); HGB 7.6 gm/dL (11.4-16.0); Hypochromasia Marked; Lymphocytes # (A) 1.7 k/uL (1.0-4.8); Lymphocytes % (A) 20 %; MCH 29.2 pg (25.0-35.0); MCHC 29.5 g/dL (31.0-37.0); Macrocytosis Moderate; Mean Platelet Volume 7.7; Microcytosis Slight; Monocytes # (A) 0.5 k/uL (0-1.0); Monocytes % (A) 6 %; Neutrophils # (A) 5.4 k/uL (1.3-7.7); Neutrophils % (A) 64 %; Poikilocytosis Slight; WBC 8.4 k/uL (3.8-10.6)
[2023-06-11 07:24] LABS: RDW 25.4 % (11.5-15.5)
[2023-06-11 07:25] LABS: Platelet Count 1379 k/uL (150-450)
[2023-06-11 07:39] LABS: ALT 14 U/L (4-34); AST 26 U/L (14-36); African American GFR (CKD) >90 (>60 ml/min/1.73 sqM); Albumin 2.8 g/dL (3.5-5.0); Alkaline Phosphatase 58 U/L (38-126); Anion Gap 3 mmol/L; Blood Urea Nitrogen 6 mg/dL (7-17); Calcium 8.3 mg/dL (8.4-10.2); Carbon Dioxide 21 mmol/L (22-30); Chloride 117 mmol/L (98-107); Glucose 84 mg/dL (74-99); Non-African American GFR(CKD) 82 (>60 ml/min/1.73 sqM); Potassium 4.2 mmol/L (3.5-5.1); Sodium 141 mmol/L (137-145); Total Bilirubin 0.4 mg/dL (0.2-1.3); Total Protein 5.1 g/dL (6.3-8.2)
[2023-06-11 08:45] LABS: Tear Drop Cells Present
--- NOTE | 2023-06-11 11:29 | P.PN ---
Subjective Progress Note Date: 06/11/23 patient is 62-year-old lady with past medical history significant for essential thrombocythemia, CML, gastric ulcer, depression, hypertension, anemia presented to ER because of complaint of lightheadedness and dizziness. Patient stated that he has been feeling weak and dizzy for the last week. Patient was also complaining of epigastric pain. Patient denied any complaint of nausea or vomiting but did notice that her stools were dark in color. Patient has history of prior peptic ulcer disease and has been scoped in 12/2022 which showed healed ulcer. Patient has been complaining of dizziness and lightheadedness and the symptoms are similar to when her hemoglobin is low. Patient also complains of shortness of breath on exertion. Denied any palpitations. There was no complaint of orthopnea or PND. Patient did notice some pressure-like sensation in her chest. Because of the symptoms, patient came to the ER Initial lab work done in the ER showed WBC 15.5, hemoglobin 6.1, platelet count 1260, sodium 139, potassium 4.2, BUN 19, creatinine 0.89, total bilirubin 0.4, AST 33, ALT 18 FOBT positive EKG done in the ER showed heart rate of 82 , no ST segment elevation or depression seen, no T-wave inversions seen. Patient admitted to internal medicine service 06/10. Patient seen and examined. No complain of bloody stools. Denies any abdominal pain 06/11. Patient seen and examined. No further episodes of blood in the stools. Currently n.p.o., going for EGD today REVIEW OF SYSTEMS: CONSTITUTIONAL: No fever, no malaise,. CARDIOVASCULAR: No chest pain, no palpitations, no syncope. PULMONARY: No shortness of breath, no cough, GASTROINTESTINAL: No diarrhea, no nausea, no vomiting, no abdominal pain. NEUROLOGICAL: No headaches, no weakness, PHYSICAL EXAMINATION: GENERAL: The patient is alert and oriented x3, not in any acute distress. Well developed, well nourished. HEENT: Pupils are round and equally reacting to light. EOMI. No scleral icterus. No conjunctival pallor. Normocephalic, atraumatic. No pharyngeal erythema. No thyromegaly. CARDIOVASCULAR: S1 and S2 present. No murmurs, rubs, or gallops. PULMONARY: Chest is clear to auscultation, no wheezing or crackles. ABDOMEN: Soft, nontender, nondistended, normoactive bowel sounds. No palpable organomegaly. MUSCULOSKELETAL: No joint swelling or deformity. EXTREMITIES: No cyanosis, clubbing, or pedal edema. NEUROLOGICAL: Gross neurological examination did not reveal any focal deficits. SKIN: No rashes. Assessment and plan GI bleed Acute blood loss anemia on chronic anemia CML Essential thrombocythemia Leukocytosis,thrombocythemia secondary to CML Gradually Worsening splenomegaly secondary to CML History of COPD, stable Hypertension GERD Rheumatoid arthritis History of anxiety/depression Continued ongoing nicotine dependence Moderate calorie protein malnutrition Monitor vital signs Monitor CBC Monitor CMP Continue telemetry monitoring Transfuse for hemoglobin less than 7. Continue IV Protonix 40 mg twice a day Continue antiemetics continue IV fluids Surgery evaluated the patient, planning endoscopy on Sunday, n.p.o. after midnight. hematology oncology following, recommend holding Gleevec while being worked up for GI bleed Continue home meds Labs and medication were reviewed.. Continue same treatment. Continue with symptomatic treatment. Resume home medication. Monitor labs and vitals. DVT and GI prophylaxis. Further recommendations as per clinical course of the patient Dictation was produced using [employer] dictation software. please excuse any grammatical, word or spelling errors. Objective - Vital Signs Vital signs: Vital Signs Temp 97.8 F 06/11/23 04:40 Pulse 81 06/11/23 08:00 Resp 16 06/11/23 08:00 BP 107/77 06/11/23 08:00 Pulse Ox 99 06/11/23 08:00 FiO2 Intake & Output 06/10/23 06/11/23 06/11/23 18:59 06:59 18:59 Intake Total 640 Balance 640 Intake: Oral 640 Other: Voiding Method Toilet Toilet # Voids 2 1 - Labs CBC & Chem 7: 06/11/23 06:20 06/11/23 06:20 Labs: Abnormal Lab Results - Last 24 Hours (Table) 06/08/23 06/11/23 06/11/23 Range/Units 16:23 06:20 06:20 RBC 2.60 L (3.80-5.40) m/uL Hgb 7.6 L (11.4-16.0) gm/dL Hct 25.7 L (34.0-46.0) % MCHC 29.5 L (31.0-37.0) g/dL RDW 25.4 H (11.5-15.5) % Plt Count 1379 H* (150-450) k/uL Basophils # 0.3 H (0-0.2) k/uL Chloride 117 H (98-107) mmol/L Carbon Dioxide 21 L (22-30) mmol/L BUN 6 L (7-17) mg/dL Calcium 8.3 L (8.4-10.2) mg/dL Transferrin 194.0 L (204.0-354.0) mg/dL Ferritin 808.0 H (10.0-291.0) ng/mL Total Protein 5.1 L (6.3-8.2) g/dL Albumin 2.8 L (3.5-5.0) g/dL Vitamin B12 >3600.0 H (200.0-944.0) pg/mL Microbiology - Last 24 Hours (Table) 06/08/23 22:46 Urine Culture - Preliminary Urine,Voided Gram Neg Bacilli
--- NOTE | 2023-06-11 13:18 | P.PN ---
Subjective Progress Note Date: 06/11/23 CHIEF COMPLAINT: Dark stools HISTORY OF PRESENT ILLNESS: Patient scheduled for EGD for evaluation of dark stools and anemia. No abdominal pain. Hgb 7.6 elevated platelets PHYSICAL EXAM: VITAL SIGNS: Reviewed. GENERAL: Well-developed in no acute distress. HEENT: No sclera icterus. Extraocular movements grossly intact. Moist buccal mucosa. Head is atraumatic, normocephalic. ABDOMEN: Soft. Nondistended. NEUROLOGIC: Alert and oriented. Cranial nerves II through XII grossly intact. ASSESSMENT: 1. Anemia 2. Acute GI bleed with dark stools 3. History of CML PLAN: -Patient scheduled for EGD today with Dr. Alexis -Continue PPI Physician Justice [employer] Judge note has been reviewed by physician. Signing provider agrees with the documented findings, assessment, and plan of care. Objective - Vital Signs Vital signs: Vital Signs Temp 97.8 F 06/11/23 04:40 Pulse 69 06/11/23 12:00 Resp 16 06/11/23 12:00 BP 108/67 06/11/23 12:00 Pulse Ox 98 06/11/23 12:00 FiO2 Intake & Output 06/10/23 06/11/23 06/11/23 18:59 06:59 18:59 Intake Total 640 Balance 640 Intake: Oral 640 Other: Voiding Method Toilet Toilet Toilet # Voids 2 1 - Labs CBC & Chem 7: 06/11/23 06:20 06/11/23 06:20 Labs: Abnormal Lab Results - Last 24 Hours (Table) 06/08/23 06/11/23 06/11/23 Range/Units 16:23 06:20 06:20 RBC 2.60 L (3.80-5.40) m/uL Hgb 7.6 L (11.4-16.0) gm/dL Hct 25.7 L (34.0-46.0) % MCHC 29.5 L (31.0-37.0) g/dL RDW 25.4 H (11.5-15.5) % Plt Count 1379 H* (150-450) k/uL Basophils # 0.3 H (0-0.2) k/uL Chloride 117 H (98-107) mmol/L Carbon Dioxide 21 L (22-30) mmol/L BUN 6 L (7-17) mg/dL Calcium 8.3 L (8.4-10.2) mg/dL Transferrin 194.0 L (204.0-354.0) mg/dL Ferritin 808.0 H (10.0-291.0) ng/mL Total Protein 5.1 L (6.3-8.2) g/dL Albumin 2.8 L (3.5-5.0) g/dL Vitamin B12 >3600.0 H (200.0-944.0) pg/mL Microbiology - Last 24 Hours (Table) 06/08/23 22:46 Urine Culture - Final Urine,Voided Escherichia coli
[2023-06-11] MEDS ORDERED: PROPOFOL 10 MG/ML 20 ML VIAL IV ONE (16:07)
[2023-06-11] MEDS ORDERED: LIDOCAINE 1% INJ 10MG/ML (20 ML MDV) ONE (16:07)
[2023-06-11] MEDS: IV FLUID CONTINUATION 1,000 ML IV ONE (16:10)
--- NOTE | 2023-06-11 16:21 | P.OP ---
Date of Procedure: 06/11/23 Preoperative Diagnosis: Anemia Postoperative Diagnosis: Mild antral gastritis No evidence of active upper GI bleed Procedure(s) Performed: egd Anesthesia: MAC Surgeon: Latrell Alexis Pathology: other (antrum) Disposition: PACU Description of Procedure: Placed on the endoscopy table in the lateral position. She received IV gianluca tion. The gas was placed oropharynx passed in the esophagus into the stomach. Scope was then placed through the pylorus. The first and second portion of the duodenum was near normal. Scope was then repacked the antrum this appeared mildly inflamed. A biopsy was performed. The scope was then retroflexed and the main of the stomach appeared normal. There was no significant hiatal hernia. The GE junction was at 40 seconds. The distal esophagus appeared normal. The proximal Soffix appeared normal. Scope withdrawn for the patient.
[2023-06-12 05:24] VITALS: RESP 14
[2023-06-12 09:02] LABS: Anisocytosis Marked; HCT 27.3 % (34.0-46.0); HGB 8.1 gm/dL (11.4-16.0); Hypochromasia Marked; MCH 29.4 pg (25.0-35.0); MCHC 29.7 g/dL (31.0-37.0); MCV 98.9 fL (80.0-100.0); Macrocytosis Moderate; Mean Platelet Volume 7.6; Microcytosis Slight; Poikilocytosis Slight; RBC 2.76 m/uL (3.80-5.40)
[2023-06-12 09:29] LABS: RDW 25.3 % (11.5-15.5)
[2023-06-12 09:30] LABS: Platelet Count 1457 k/uL (150-450)
--- NOTE | 2023-06-12 11:54 | P.PN ---
Subjective Progress Note Date: 06/12/23 CHIEF COMPLAINT: Dark stools HISTORY OF PRESENT ILLNESS: Patient status post EGD results showed mild antral gastritis. No evidence of active upper GI bleed. Patient denies any black stools. Denies abdominal pain. Tolerating regular diet. Hemoglobin is up from 7.6-8.1 PHYSICAL EXAM: VITAL SIGNS: Reviewed. GENERAL: Well-developed in no acute distress. HEENT: No sclera icterus. Extraocular movements grossly intact. Moist buccal mucosa. Head is atraumatic, normocephalic. ABDOMEN: Soft. Nondistended. NEUROLOGIC: Alert and oriented. Cranial nerves II through XII grossly intact. ASSESSMENT: 1. Anemia 2. Acute GI bleed with dark stools 3. History of CML PLAN: -Continue regular diet -Agree with discharge -Continue PPI Physician Complex Manager note has been reviewed by physician. Signing provider agrees with the documented findings, assessment, and plan of care. Objective - Vital Signs Vital signs: Vital Signs Temp 98.0 F 06/12/23 08:00 Pulse 72 06/12/23 08:00 Resp 14 06/12/23 08:00 BP 96/58 06/12/23 08:00 Pulse Ox 100 06/12/23 08:00 FiO2 Intake & Output 06/11/23 06/12/23 06/12/23 18:59 06:59 18:59 Intake Total 890 Balance 890 Weight 45.359 kg Intake: IV 50 Intake, IV Titration 600 Amount Sodium Chloride 0.9% 1, 600 000 ml @ 75 mls/hr IV . [id number] SHERRILL Rx#:[id number] Oral 240 Other: Voiding Method Toilet Toilet Toilet # Bowel Movements 1 - Labs CBC & Chem 7: 06/12/23 08:44 06/11/23 06:20 Labs: Abnormal Lab Results - Last 24 Hours (Table) 06/12/23 Range/Units 08:44 RBC 2.76 L (3.80-5.40) m/uL Hgb 8.1 L (11.4-16.0) gm/dL Hct 27.3 L (34.0-46.0) % MCHC 29.7 L (31.0-37.0) g/dL RDW 25.3 H (11.5-15.5) % Plt Count 1457 H* (150-450) k/uL Microbiology - Last 24 Hours (Table) 06/08/23 22:46 Urine Culture - Final Urine,Voided Escherichia coli
[2023-06-12 12:05] VITALS: TEMP 98
[2023-06-12 13:34] VITALS: BP 111/69; PULSE 69
--- NOTE | 2023-06-12 14:34 | P.PN ---
Subjective Progress Note Date: 06/12/23 Principal diagnosis: GI bleed In f/u today pt cont to have intermittent abd discomfort. No current bloating, swelling in legs or bleeding. Objective - Vital Signs Vital signs: Vital Signs Temp 98.0 F 06/12/23 08:00 Pulse 72 06/12/23 08:00 Resp 14 06/12/23 08:00 BP 96/58 06/12/23 08:00 Pulse Ox 100 06/12/23 08:00 FiO2 Intake & Output 06/11/23 06/12/23 06/12/23 18:59 06:59 18:59 Intake Total 890 Balance 890 Weight 45.359 kg Intake: IV 50 Intake, IV Titration 600 Amount Sodium Chloride 0.9% 1, 600 000 ml @ 75 mls/hr IV . [id number] SHERRILL Rx#:[id number] Oral 240 Other: Voiding Method Toilet Toilet Toilet # Bowel Movements 1 - Constitutional General appearance: Present: cooperative, no acute distress, thin - EENT Eyes: Present: anicteric sclerae, EOMI ENT: Present: hearing grossly normal - Respiratory Details: resp even and unlabored at rest - Cardiovascular Details: skin warm and dry to touch - Gastrointestinal General gastrointestinal: Present: soft - Integumentary Integumentary: Present: normal - Neurologic Neurologic: Present: CNII-XII intact - Musculoskeletal Musculoskeletal: Present: strength equal bilaterally - Psychiatric Psychiatric: Present: A&O x's 3, appropriate affect, intact judgment & insight - Labs CBC & Chem 7: 06/12/23 08:44 06/11/23 06:20 Labs: Abnormal Lab Results - Last 24 Hours (Table) 06/12/23 Range/Units 08:44 RBC 2.76 L (3.80-5.40) m/uL Hgb 8.1 L (11.4-16.0) gm/dL Hct 27.3 L (34.0-46.0) % MCHC 29.7 L (31.0-37.0) g/dL RDW 25.3 H (11.5-15.5) % Plt Count 1457 H* (150-450) k/uL Microbiology - Last 24 Hours (Table) 06/08/23 22:46 Urine Culture - Final Urine,Voided Escherichia coli Assessment and Plan (1) GI bleed Status: Acute Priority: High Code(s): K92.2 - GASTROINTESTINAL HEMORRHAGE, UNSPECIFIED SNOMED Code(s): 75922430 (2) Anemia Status: Acute Priority: Medium Code(s): D64.9 - ANEMIA, UNSPECIFIED SNOMED Code(s): 539464940 (3) Chronic myeloid leukemia (CML), BCR/ABL-positive Status: Chronic Priority: Medium Code(s): C92.10 - CHRONIC MYELOID LEUK, BCR/ABL-POSITIVE, NOT ACHIEVE REMIS SNOMED Code(s): 96543792 (4) Essential thrombocythemia Status: Chronic Priority: Medium Code(s): D47.3 - ESSENTIAL (HEMORRHAGIC) THROMBOCYTHEMIA SNOMED Code(s): 232634785 Plan: Normocytic normochromic anemia -Multifactorial including acute bleeding, chronic from CML -Hgb on admit 6.1 , s/p 1 unit PRBCs with appropriate increase in Hgb. Stable today at 8.1 -Iron studies performed outpatient on 05/11/2023 were consistent with iron deficiency with ferritin of 34 and iron saturation 12% and was treated with Feraheme on 05/17/2023 and 05/23/2023. Recehck iron studies at next OV. -Hx of hemorrhagic gastritis. Repeat EGD neg for acute findings or bleeding. PPI ordered. Pt encouraged to take PPI as instructed. Biopsy pending -B12 and folic acid dequate, no supplement needed Thrombocytosis, acute on chronic -Thrombocytosis 2/2 CML. Started treatment of CML in Nov with improvements in plt counts. -Acute increase in plt is reactive to acute GI bleeding and holding of gleevec. CML -Diagnosed December 2022 -Initiated Gleevec 03/14/2023 with progressive decrease in leukocytosis and thrombocytosis -Gleevec held while inpt. Pt instructed to resume when she gets home -F/U Dr. Dawkins in 9 days
--- NOTE | 2023-06-12 15:58 | P.DS ---
Providers Date of admission: 06/08/23 17:55 Expected date of discharge: 06/12/23 Attending physician: Bashir Jefferson MD Consults: 06/08/23 17:55 Consult Physician Stat Consulting Provider: Latrell Alexis Consult Reason/Comments: anemia/GI bleed Do you want consulting provider notified?: Already Contacted Consult Physician Stat Consulting Provider: Alexandro Dawkins Consult Reason/Comments: anemia/GI bleed Do you want consulting provider notified?: Yes Primary care physician: Katja Jefferson [facility] Course: Final Diagnoses: GI bleed in a patient with history of hemorrhagic gastritis, status post EGD reporting no active bleeding Acute blood loss anemia, status posttransfusion 1 unit packed RBC CML, diagnosed December 2022 ,started treatments in February 2023 Severe anemia, status post 2 units of packed RBCs, secondary to the above Acute on chronic thrombocytosis related to holding Gleevec, acute GI bleeding Essential thrombocythemia Leukocytosis Gradually Worsening splenomegaly secondary to CML Recent history of suspected Acute GI bleed with dark stools, however EGD showing only mild antral gastritis Thoracic back pain and tenderness, MRI reported age-related degenerative changes throughout the thoracic spine with multilevel disc bulging most pronounced at T2-T3, central disc protrusion C6-C7, orthopedic spine following. History of COPD, stable Hypertension GERD Rheumatoid arthritis History of anxiety/depression Continued ongoing nicotine dependence Moderate calorie protein malnutrition Hospital course: This is a 62-year-old female recently admitted with CML, admitted with GI bleed/acute blood loss anemia, dark stools, essential thrombocythemia, increased weakness and multiple other medical issues. Evaluated by general surgery, oncology. Underwent EGD reporting mild antral gastritis, no evidence of active upper GI bleed. Tolerating regular diet. Denies nausea vomiting or diarrhea. Denies abdominal pain. Received 1 unit packed RBCs this admission with current hemoglobin stable 8.1. Patient will be discharged home today in a stable condition with guarded prognosis pending final DC recommendations and clearance per both general surgery and oncology. The impression and plan of care has been dictated as directed. : I performed a history and examination of this patient, discussed the same with the dictator. I agree with the dictator's note ,documented as a scribe. Any additional findings or plans will be noted. Patient Condition at Discharge: Stable Plan - Discharge Summary Discharge Rx Participant: No New Discharge Prescriptions: New Docusate [Colace] 100 mg PO BID cap Continue Topiramate 100 mg PO BID Gabapentin 800 mg PO TID HYDROcodone/APAP 7.5-325MG [Roosevelt 7.5-325] 1 tab PO DIRECTED Baclofen [Lioresal] 20 mg PO HS buPROPion XL [Wellbutrin XL] 300 mg PO DAILY Sertraline [Zoloft] 50 mg PO DAILY Multivit with Calcium,Iron,Min [Women's Multivitamin] 1 tab PO DAILY Aspirin [Adult Low Dose Aspirin EC] 81 mg PO Q48H Omeprazole [PriLOSEC] 20 mg PO AC-BRKFST #90 cap Clindamycin Phosphate 1 applic TOPICAL BID Tretinoin [Tretinoin 0.025%] 1 applic TOPICAL HS Lactulose [Cephulac] 30 gm PO BID PRN #600 ml PRN Reason: Constipation Spironolactone [Aldactone] 25 mg PO DAILY Ondansetron Odt [Zofran ODT] 4 mg PO Q6H PRN PRN Reason: Nausea HYDROcodone/APAP 5-325MG [Roosevelt 5-325] 1 tab PO QID Imatinib Mesylate 400 mg PO Q48H Discharge Medication List Gabapentin 800 mg PO TID 05/01/14 [History] Topiramate 100 mg PO BID 05/01/14 [History] HYDROcodone/APAP 7.5-325MG [Roosevelt 7.5-325] 1 tab PO DIRECTED 03/11/16 [History] Baclofen [Lioresal] 20 mg PO HS 07/02/17 [History] Sertraline [Zoloft] 50 mg PO DAILY 07/02/17 [History] buPROPion XL [Wellbutrin XL] 300 mg PO DAILY 07/02/17 [History] Multivit with Calcium,Iron,Min [Women's Multivitamin] 1 tab PO DAILY 10/21/19 [History] Spironolactone [Aldactone] 25 mg PO DAILY 12/21/21 [History] Aspirin [Adult Low Dose Aspirin EC] 81 mg PO Q48H 06/07/22 [History] Omeprazole [PriLOSEC] 20 mg PO AC-BRKFST #90 cap 06/09/22 [Rx] Clindamycin Phosphate 1 applic TOPICAL BID 01/16/23 [History] Tretinoin [Tretinoin 0.025%] 1 applic TOPICAL HS 01/16/23 [History] Lactulose [Cephulac] 30 gm PO BID PRN #600 ml 01/20/23 [Rx] Ondansetron Odt [Zofran ODT] 4 mg PO Q6H PRN 03/09/23 [History] HYDROcodone/APAP 5-325MG [Roosevelt 5-325] 1 tab PO QID 06/08/23 [History] Imatinib Mesylate 400 mg PO Q48H 06/08/23 [History] Docusate [Colace] 100 mg PO BID cap 06/12/23 [Rx] Follow up Appointment(s)/Referral(s): Alexandro Dawkins [STAFF PHYSICIAN] - 06/21/23 3:15 pm Katja Jefferson DO [Primary Care Provider] - 3 Days Ambulatory/Diagnostic Orders: Complete Blood Count w/diff [LAB.AMB] Time Frame: 3 Days, Location: None Selected Patient Instructions/Handouts: Anemia (DC), Upper Endoscopy (DC) Activity/Diet/Wound Care/Special Instructions: Close monitoring of blood counts /CBC outpatient Resume gleevec once home Discharge Disposition: HOME SELF-CARE
== END 2023-06-12 13:47 | disposition home or self-care (01) | DRG 378 ==
LOC: EC 16:05 → 3SCARD 17:55
PROVIDERS: ADMIT Family Medicine; ATTEND Family Medicine
PROC: 30233R1 Transfusion of Nonautologous Platelets into Peripheral Vein, Percutaneous Approach (ICD-10-PCS; 2023-06-08)
PROC: 0DB78ZX Excision of Stomach, Pylorus, Via Natural or Artificial Opening Endoscopic, Diagnostic (ICD-10-PCS; principal; 2023-06-11 07:55)
DX: K29.01 Acute gastritis with bleeding (principal); C92.10 Chronic myeloid leukemia, BCR/ABL-positive, not having achieved remission; D62 Acute posthemorrhagic anemia; E44.0 Moderate protein-calorie malnutrition; Z68.1 Body mass index [BMI] 19.9 or less, adult; K44.9 Diaphragmatic hernia without obstruction or gangrene; D47.3 Essential (hemorrhagic) thrombocythemia; D75.839 Thrombocytosis, unspecified; F32.A Depression, unspecified; L65.9 Nonscarring hair loss, unspecified; F41.9 Anxiety disorder, unspecified; I10 Essential (primary) hypertension; I73.00 Raynaud's syndrome without gangrene; K21.9 Gastro-esophageal reflux disease without esophagitis; J44.9 Chronic obstructive pulmonary disease, unspecified; M54.6 Pain in thoracic spine; M06.9 Rheumatoid arthritis, unspecified; M50.223 Other cervical disc displacement at C6-C7 level; Z79.82 Long term (current) use of aspirin; Z79.899 Other long term (current) drug therapy; Z87.11 Personal history of peptic ulcer disease; Z86.14 Personal history of Methicillin resistant Staphylococcus aureus infection; Z98.1 Arthrodesis status; Z91.51 Personal history of suicidal behavior; Z79.891 Long term (current) use of opiate analgesic; Z28.311 Partially vaccinated for COVID-19; Z28.21 Immunization not carried out because of patient refusal; Z87.01 Personal history of pneumonia (recurrent)
CPT/HCPCS: 36415; 43239; 80053; 81001; 82272; 82607; 82728; 82746; 83540; 83550; 85025; 85027; 86850; 86900; 86901; 86920; 87077; 87086; 87186; 88305; 93005; 96361; 96374; 96375; 99285

== ENCOUNTER 2023-08-02 16:36 | Inpatient (IN) | payer MEDICARE, OTHER ==
[2023-08-02 17:33] LABS: Anisocytosis Marked; Hypochromasia Marked; MCH 25.6 pg (25.0-35.0); MCHC 27.8 g/dL (31.0-37.0); Macrocytosis Slight; Mean Platelet Volume 7.6; Microcytosis Slight; Poikilocytosis Moderate; RBC 1.98 m/uL (3.80-5.40)
[2023-08-02 17:35] LABS: HCT 18.2 % (34.0-46.0)
[2023-08-02 17:36] LABS: HGB 5.1 gm/dL (11.4-16.0); Platelet Count 1752 k/uL (150-450); RDW 26.8 % (11.5-15.5)
[2023-08-02 17:37] LABS: MCV 91.9 fL (80.0-100.0)
[2023-08-02 17:38] LABS: ALT 20 U/L (4-34); AST 39 U/L (14-36); African American GFR (CKD) 86 (>60 ml/min/1.73 sqM); Albumin 3.9 g/dL (3.5-5.0); Alkaline Phosphatase 56 U/L (38-126); Amylase 76 U/L (30-110); Anion Gap 9 mmol/L; Blood Urea Nitrogen 22 mg/dL (7-17); Calcium 9.3 mg/dL (8.4-10.2); Carbon Dioxide 20 mmol/L (22-30); Chloride 108 mmol/L (98-107); Glucose 113 mg/dL (74-99); Lipase 225 U/L (23-300); Non-African American GFR(CKD) 74 (>60 ml/min/1.73 sqM); Potassium 4.3 mmol/L (3.5-5.1); Sodium 137 mmol/L (137-145); Total Bilirubin 0.3 mg/dL (0.2-1.3); Total Protein 6.4 g/dL (6.3-8.2)
[2023-08-02 18:00] LABS: Partial Thromboplastin Time 22.9 sec (22.0-30.0); Prothrombin Time 10.9 sec (10.0-12.5)
[2023-08-02 18:15] LABS: Band Neutrophils % 2 %; Metamyelocytes % 6 %; Myelocytes % 2 %; Neutrophils % (M) 73 %; Nucleated Red Blood Cells 5 /100 WBC (0-0); Total Cells Counted 200
[2023-08-02 18:16] LABS: Anisocytosis (M) Present; Hypochromasia (M) Present; Polychromasia Present; RBC Fragments Present; Target Cells Present
--- NOTE | 2023-08-02 18:34 | ED ---
General Adult HPI - General Chief complaint: Recheck/Abnormal Lab/Rx Stated complaint: Abn Labs Time Seen by Provider: 08/02/23 16:52 Source: patient Mode of arrival: ambulatory Limitations: no limitations - History of Present Illness Initial comments: 62-year-old female with a past medical history significant for CML currently on Gleevec with histories of anemia in the past presenting to the ED with a chief complaint of abnormal labs. Patient reports over the past week or so has been feeling more fatigued than usual. Also notes some shortness of breath and palpitations especially with exertion. Also does note some pain in her chest. Patient reports that the symptoms are consistent with history of anemia therefore went to her PCP earlier this week and had her blood drawn. Patient advised earlier in the week that she was anemic and had outpatient blood transfusion scheduled however she was also instructed by her PCP to present to the ED for further evaluation should her symptoms worsen. Reports that these above symptoms have worsened which prompted presentation to the ED for further evaluation. Denies any blood in the stool or melena. No fever or chills. No other complaints at this time. - Related Data Home Medications Medication Instructions Recorded Confirmed Gabapentin 800 mg PO TID 05/01/14 08/02/23 Topiramate 100 mg PO BID 05/01/14 08/02/23 HYDROcodone/APAP 7.5-325MG [[place] 1 tab PO QID 03/11/16 08/02/23 7.5-325] Baclofen [Lioresal] 20 mg PO HS 07/02/17 08/02/23 Sertraline [Zoloft] 50 mg PO DAILY 07/02/17 08/02/23 buPROPion XL [Wellbutrin XL] 300 mg PO DAILY 07/02/17 08/02/23 Multivit with Calcium,Iron,Min 1 tab PO DAILY 10/21/19 08/02/23 [Women's Multivitamin] Spironolactone [Aldactone] 25 mg PO DAILY 12/21/21 08/02/23 Aspirin [Adult Low Dose Aspirin EC] 81 mg PO Q48H 06/07/22 08/02/23 Clindamycin Phosphate 1 applic TOPICAL BID 01/16/23 08/02/23 Tretinoin [Tretinoin 0.025%] 1 applic TOPICAL HS 01/16/23 08/02/23 Ondansetron Odt [Zofran ODT] 4 mg PO Q6H PRN 03/09/23 08/02/23 Gabapentin 800 mg PO DAILY PRN 08/02/23 08/02/23 Imatinib Mesylate 200 mg PO W/SUPPER 08/02/23 08/02/23 Previous Rx's Medication Instructions Recorded Omeprazole [PriLOSEC] 20 mg PO AC-BRKFST #90 cap 06/09/22 Lactulose [Cephulac] 30 gm PO BID PRN #600 ml 01/20/23 Allergies Allergy/AdvReac Type Severity Reaction Status Date / Time metronidazole [From Flagyl] Allergy Itching, Verified 08/02/23 18:13 BURNING OF SKIN Review of Systems ROS Statement: Those systems with pertinent positive or pertinent negative responses have been documented in the HPI. ROS Other: All systems not noted in ROS Statement are negative. Past Medical History Past Medical History: GERD/Reflux, Pneumonia, Rheumatoid Arthritis (RA) Additional Past Medical History / Comment(s): IP ADMISSION FORGASTRIC ULCER IN MAY 2022 WITH HIGH PLATELET & WHITE COUNT THROMBYTOSIS- (SEES DR REBOLLEDO). COPD, leukoplakia of the vocal cords, chronic shoulder back and neck pain, acid r eflux, depression, raynaud's syndrome. takes aldactone for hair loss. CML History of Any Multi-Drug Resistant Organisms: MRSA Date of last positivie culture/infection: 05/03/19 MDRO Source:: MRSA FACE Past Surgical History: Back Surgery, Cholecystectomy, Hernia Repair, Orthopedic Surgery, Tonsillectomy Additional Past Surgical History / Comment(s): arthroscopic shoulder, vocal cord scraping, dariana fundoplasty, CERVICAL FUSSION, recent EGD, colonoscopy. VENTRAL HERNIA. Past Anesthesia/Blood Transfusion Reactions: Blood Transfusion Reaction Additional Past Anesthesia/Blood Transfusion Reaction / Comment(s): TRANSFUSIONS WITH GASTRIC ULCER, no previous reactions Past Psychological History: Anxiety, Depression Smoking Status: Current every day smoker Past Alcohol Use History: None Reported Past Drug Use History: None Reported - Past Family History Mother History Unknown: Yes Family Medical History: Cancer Father Family Medical History: Unable to Obtain General Exam Limitations: no limitations General appearance: alert, in no apparent distress Neck exam: Present: normal inspection Respiratory exam: Present: normal lung sounds bilaterally Cardiovascular Exam: Present: tachycardia GI/Abdominal exam: Present: soft, normal bowel sounds. Absent: distended, tenderness, guarding, rebound, rigid Neurological exam: Present: alert, oriented X3 Skin exam: Present: warm, dry Course Vital Signs 08/02/23 08/02/23 08/02/23 16:42 17:14 17:15 Temperature 98 F Pulse Rate 110 H 96 92 Respiratory 26 H 10 L 17 Rate Blood Pressure 130/52 118/72 O2 Sat by Pulse 96 100 100 Oximetry 08/02/23 08/02/23 08/02/23 17:30 17:45 18:00 Temperature Pulse Rate 90 90 90 Respiratory 14 17 26 H Rate Blood Pressure 118/72 118/72 118/72 O2 Sat by Pulse 99 Oximetry 08/02/23 08/02/23 08/02/23 18:15 18:30 18:35 Temperature 98.6 F Pulse Rate 87 90 89 Respiratory 11 L 19 14 Rate Blood Pressure 118/72 118/72 124/74 O2 Sat by Pulse 99 97 Oximetry 08/02/23 08/02/23 08/02/23 18:45 19:00 19:15 Temperature Pulse Rate 93 85 86 Respiratory 15 16 17 Rate Blood Pressure 133/63 125/72 119/71 O2 Sat by Pulse 97 98 97 Oximetry 08/02/23 08/02/23 08/02/23 19:30 19:45 20:00 Temperature Pulse Rate 87 89 101 H Respiratory 16 10 L 16 Rate Blood Pressure 121/72 119/68 112/69 O2 Sat by Pulse 97 97 Oximetry 08/02/23 08/02/23 08/02/23 20:15 21:22 23:52 Temperature 98.4 F 98.4 F 97.9 F Pulse Rate 99 93 83 Respiratory 16 14 16 Rate Blood Pressure 120/67 108/62 108/62 O2 Sat by Pulse 98 Oximetry Medical Decision Making - Medical Decision Making Was pt. sent in by a medical professional or institution (, PA, WEARING [employer]ER, urgent care, hospital, or fdc...) When possible be specific @ -No Did you speak to anyone other than the patient for history (EMS, parent, family, police, friend...)? What history was obtained from this source @ -No Did you review nursing and triage notes (agree or disagree)? Why? @ -I reviewed and agree with nursing and triage notes Were old charts reviewed (outside hosp., previous admission, EMS record, old EKG, old radiological studies, urgent care reports/EKG's, fdc records)? Report findings @ -Reviewed old charts showing history of CML on Gleevec Differential Diagnosis (chest pain, altered mental status, abdominal pain women, abdominal pain men, vaginal bleeding, weakness, fever, dyspnea, syncope, headache, dizziness, GI bleed, back pain, seizure, CVA, palpatations, mental health, musculoskeletal)? @ -Differential Weakness: Hypoglycemia, shock, sepsis, hyponatremia, anemia, infection, IA, ETOH, adverse medicine reaction, overdose, stroke, this is not meant to be an all-inclusive list. EKG interpreted by me (3pts min.). @ -EKG shows a sinus rhythm with a short MI interval at 209 ms with a rate of 96 bpm with [address] acute ST or T wave changes. QRS 95, QT/QTc 338/392. X-rays interpreted by me (1pt min.). @ -None done CT interpreted by me (1pt min.). @ -None done U/S interpreted by me (1pt. min.). @ -None done What testing was considered but not performed or refused? (CT, X-rays, U/S, labs)? Why? @ -None What meds were considered but not given or refused? Why? @ -None Did you discuss the management of the patient with other professionals (professionals i.e. , PA, WE[employer]ER, lab, RT, psych nurse, social media community manager, wellness instructor, teacher, commanding officer homicide squad, nurse outreach case manager)? Give summary @ -Case discussed with blood bank. Secondary to anemia with a hemoglobin of 5.12 units were ordered. Blood bank advised that they only have 1 unit of B- irradiated blood and would like confirmation from oncology to give her O- irradiated blood. Spoke to Dr. Hernandez, who advised if needed she can be given a unit of O- irradiated blood as well. Spoke to blood bank who informs me that instead they will be having another unit of O- brought to her tomorrow for transfusion. Is currently receiving 1 unit of O- irradiated blood at this moment. Case discussed with Dr. Jefferson, who accepts admission. Was smoking cessation discussed for >3mins.? @ -No Was critical care preformed (if so, how long)? @ -No Were there social determinants of health that impacted care today? How? (Homelessness, low income, unemployed, alcoholism, drug addiction, transportation, low edu. Level, literacy, decrease access to med. care, snf, rehab)? @ -No Was there de-escalation of care discussed even if they declined (Discuss DNR or withdrawal of care, Hospice)? DNR status @ -No What co-morbidities impacted this encounter? (DM, HTN, Smoking, COPD, CAD, Cancer, CVA, ARF, Chemo, Hep., AIDS, mental health diagnosis, sleep apnea, morbid obesity)? @ -CML Was patient admitted / discharged? Hospital course, mention meds given and route, prescriptions, significant lab abnormalities, going to OR and other pertinent info. @ -Admission 62-year-old female with a past medical history significant for CML presenting to the ED with complaints of fatigue, shortness of breath, chest pains, headache which she reports are consistent with history of anemia in the past. Due to her symptoms saw her PCP earlier this week and had outpatient transfusion ordered for her however secondary to worsening symptoms was advised to present to the ED for further evaluation. Laboratory studies reviewed. CBC does show an elevated white blood cell count at 30, anemia with a hemoglobin at 5.1, thrombocytosis with platelets at 1752. Chemistry panel largely unremarkable. Troponin undetectable. Occult blood was positive. Patient will be admitted secondary to anemia. Patient provided 1 unit of B- irradiated blood today and a another unit will arrive tomorrow for additional transfusion. Consult will be placed to oncology. Undiagnosed new problem with uncertain prognosis? @ -No Drug Therapy requiring intensive monitoring for toxicity (Heparin, Nitro, Insulin, Cardizem)? @ -No Were any procedures done? @ -No Diagnosis/symptom? @ -Anemia Acute, or Chronic, or Acute on Chronic? @ -Acute Uncomplicated (without systemic symptoms) or Complicated (systemic symptoms)? @ -Complicated Side effects of treatment? @ -No Exacerbation, Progression, or Severe Exacerbation? @ -No Poses a threat to life or bodily function? How? (Chest pain, USA, IA, pneumonia, PE, COPD, DKA, ARF, appy, cholecystitis, CVA, Diverticulitis, Homicidal, Suicidal, threat to staff... and all critical care pts) @ -Possibly, anemia - Lab Data Result diagrams: 08/02/23 17:00 08/02/23 17:00 Lab Results 08/02/23 08/02/23 08/02/23 Range/Units 17:00 17:00 17:00 WBC 30.0 H (3.8-10.6) k/uL RBC 1.98 L (3.80-5.40) m/uL Hgb 5.1 L* D (11.4-16.0) gm/dL Hct 18.2 L* (34.0-46.0) % MCV 91.9 D (80.0-100.0) fL MCH 25.6 (25.0-35.0) pg MCHC 27.8 L (31.0-37.0) g/dL RDW 26.8 H (11.5-15.5) % Plt Count 1752 H* (150-450) k/uL MPV 7.6 Neutrophils % (Manual) 73 % Band Neuts % (Manual) 2 % Lymphocytes % (Manual) 7 % Monocytes % (Manual) 6 % Eosinophils % (Manual) 4 % Basophils % (Manual) 2 % Metamyelocytes % 6 % Myelocytes % 2 % Neutrophils # (Manual) 22.50 H (1.3-7.7) k/uL Lymphocytes # (Manual) 2.10 (1.0-4.8) k/uL Monocytes # (Manual) 1.80 H (0-1.0) k/uL Eosinophils # (Manual) 1.20 H (0-0.7) k/uL Basophils # (Manual) 0.60 H (0-0.2) k/uL Metamyelocytes # (Man) 1.80 H (0) k/uL Myelocytes # (Manual) 0.60 H (0) k/uL Nucleated RBCs 5 H (0-0) /100 WBC Manual Slide Review Performed Polychromasia Present Hypochromasia Marked Hypochromasia (manual) Present Poikilocytosis Moderate Anisocytosis Marked Anisocytosis (manual) Present Microcytosis Slight Macrocytosis Slight Target Cells Present Fragmented RBCs Present PT 10.9 (10.0-12.5) sec INR 1.0 (<1.2) APTT 22.9 (22.0-30.0) sec Sodium 137 (137-145) mmol/L Potassium 4.3 (3.5-5.1) mmol/L Chloride 108 H (98-107) mmol/L Carbon Dioxide 20 L (22-30) mmol/L Anion Gap 9 mmol/L BUN 22 H (7-17) mg/dL Creatinine 0.86 (0.52-1.04) mg/dL Est GFR (CKD-EPI)AfAm 86 (>60 ml/min/1.73 sqM) Est GFR (CKD-EPI)NonAf 74 (>60 ml/min/1.73 sqM) Glucose 113 H (74-99) mg/dL Calcium 9.3 (8.4-10.2) mg/dL Magnesium (1.6-2.3) mg/dL Total Bilirubin 0.3 (0.2-1.3) mg/dL AST 39 H (14-36) U/L ALT 20 (4-34) U/L Alkaline Phosphatase 56 (38-126) U/L Troponin I (0.000-0.034) ng/mL Total Protein 6.4 (6.3-8.2) g/dL Albumin 3.9 (3.5-5.0) g/dL Amylase 76 (30-110) U/L Lipase 225 (23-300) U/L Stool Occult Blood (Negative) Blood Type Blood Type Recheck Bld Type Recheck Status Antibody Screen Crossmatch Spec Expiration Date 08/02/23 08/02/23 08/02/23 Range/Units 17:00 17:19 19:41 WBC (3.8-10.6) k/uL RBC (3.80-5.40) m/uL Hgb (11.4-16.0) gm/dL Hct (34.0-46.0) % MCV (80.0-100.0) fL MCH (25.0-35.0) pg MCHC (31.0-37.0) g/dL RDW (11.5-15.5) % Plt Count (150-450) k/uL MPV Neutrophils % (Manual) % Band Neuts % (Manual) % Lymphocytes % (Manual) % Monocytes % (Manual) % Eosinophils % (Manual) % Basophils % (Manual) % Metamyelocytes % % Myelocytes % % Neutrophils # (Manual) (1.3-7.7) k/uL Lymphocytes # (Manual) (1.0-4.8) k/uL Monocytes # (Manual) (0-1.0) k/uL Eosinophils # (Manual) (0-0.7) k/uL Basophils # (Manual) (0-0.2) k/uL Metamyelocytes # (Man) (0) k/uL Myelocytes # (Manual) (0) k/uL Nucleated RBCs (0-0) /100 WBC Manual Slide Review Polychromasia Hypochromasia Hypochromasia (manual) Poikilocytosis Anisocytosis Anisocytosis (manual) Microcytosis Macrocytosis Target Cells Fragmented RBCs PT (10.0-12.5) sec INR (<1.2) APTT (22.0-30.0) sec Sodium (137-145) mmol/L Potassium (3.5-5.1) mmol/L Chloride (98-107) mmol/L Carbon Dioxide (22-30) mmol/L Anion Gap mmol/L BUN (7-17) mg/dL Creatinine (0.52-1.04) mg/dL Est GFR (CKD-EPI)AfAm (>60 ml/min/1.73 sqM) Est GFR (CKD-EPI)NonAf (>60 ml/min/1.73 sqM) Glucose (74-99) mg/dL Calcium (8.4-10.2) mg/dL Magnesium 1.8 (1.6-2.3) mg/dL Total Bilirubin (0.2-1.3) mg/dL AST (14-36) U/L ALT (4-34) U/L Alkaline Phosphatase (38-126) U/L Troponin I (0.000-0.034) ng/mL Total Protein (6.3-8.2) g/dL Albumin (3.5-5.0) g/dL Amylase (30-110) U/L Lipase (23-300) U/L Stool Occult Blood Positive H (Negative) Blood Type B Negative Blood Type Recheck B Neg Bld Type Recheck Status No Antibody Screen NEGATIVE Crossmatch See Detail Spec Expiration Date 08/05/2023 - 229908/02/23 Range/Units 19:41 WBC (3.8-10.6) k/uL RBC (3.80-5.40) m/uL Hgb (11.4-16.0) gm/dL Hct (34.0-46.0) % MCV (80.0-100.0) fL MCH (25.0-35.0) pg MCHC (31.0-37.0) g/dL RDW (11.5-15.5) % Plt Count (150-450) k/uL MPV Neutrophils % (Manual) % Band Neuts % (Manual) % Lymphocytes % (Manual) % Monocytes % (Manual) % Eosinophils % (Manual) % Basophils % (Manual) % Metamyelocytes % % Myelocytes % % Neutrophils # (Manual) (1.3-7.7) k/uL Lymphocytes # (Manual) (1.0-4.8) k/uL Monocytes # (Manual) (0-1.0) k/uL Eosinophils # (Manual) (0-0.7) k/uL Basophils # (Manual) (0-0.2) k/uL Metamyelocytes # (Man) (0) k/uL Myelocytes # (Manual) (0) k/uL Nucleated RBCs (0-0) /100 WBC Manual Slide Review Polychromasia Hypochromasia Hypochromasia (manual) Poikilocytosis Anisocytosis Anisocytosis (manual) Microcytosis Macrocytosis Target Cells Fragmented RBCs PT (10.0-12.5) sec INR (<1.2) APTT (22.0-30.0) sec Sodium (137-145) mmol/L Potassium (3.5-5.1) mmol/L Chloride (98-107) mmol/L Carbon Dioxide (22-30) mmol/L Anion Gap mmol/L BUN (7-17) mg/dL Creatinine (0.52-1.04) mg/dL Est GFR (CKD-EPI)AfAm (>60 ml/min/1.73 sqM) Est GFR (CKD-EPI)NonAf (>60 ml/min/1.73 sqM) Glucose (74-99) mg/dL Calcium (8.4-10.2) mg/dL Magnesium (1.6-2.3) mg/dL Total Bilirubin (0.2-1.3) mg/dL AST (14-36) U/L ALT (4-34) U/L Alkaline Phosphatase (38-126) U/L Troponin I <0.012 (0.000-0.034) ng/mL Total Protein (6.3-8.2) g/dL Albumin (3.5-5.0) g/dL Amylase (30-110) U/L Lipase (23-300) U/L Stool Occult Blood (Negative) Blood Type Blood Type Recheck Bld Type Recheck Status Antibody Screen Crossmatch Spec Expiration Date Disposition Clinical Impression: Anemia Disposition: ADMITTED IP TO THIS HOSP Condition: Good Referrals: Katja Jefferson DO [Primary Care Provider] - 1-2 days Time of Disposition: 00:00
[2023-08-02] MEDS: HYDROcodone/APAP 7.5-325MG 1 EACH TAB PO ONE (18:41)
[2023-08-02] MEDS: LORazepam 1 MG TAB PO STA (22:38)
--- NOTE | 2023-08-02 22:54 | CT ---
EXAM: CT Head Without Intravenous Contrast CLINICAL HISTORY: ITS.REASON CT Reason: sloan. episode of bleeding from right ear TECHNIQUE: Axial computed tomography images of the head/brain without intravenous contrast. CTDI is 49.1 mGy and DLP is 1095.4 mGy-cm. This CT exam was performed using one or more of the following dose reduction techniques: automated exposure control, adjustment of the mA and/or kV according to patient size, and/or use of iterative reconstruction technique. COMPARISON: No relevant prior studies available. FINDINGS: No acute intracranial hemorrhage. No midline shift or mass effect. The territorial peace-white matter differentiation is maintained throughout. Age-related cerebral volume loss. Periventricular and subcortical white matter hypoattenuation, consistent with chronic microangiopathy. The visualized orbits appear grossly unremarkable. The calvarium is intact. The visualized paranasal sinuses and mastoid air cells are grossly clear. IMPRESSION: No acute intracranial hemorrhage, midline shift, or mass effect.
[2023-08-02] MEDS ORDERED: NALOXONE 0.4 MG/ML 1 ML VIAL IV PRN (23:53)
[2023-08-03] MEDS: PANTOPRAZOLE 40 MG/10 ML VIAL IV SCH (00:49)
[2023-08-03] MEDS: SODIUM CHLORIDE 0.9% 1,000 ML IV SCH (00:49)
[2023-08-03] MEDS: BACLOFEN 10 MG TAB PO SCH (02:18)
[2023-08-03] MEDS: GABAPENTIN 400 MG CAP PO SCH (02:19)
[2023-08-03] MEDS: SERTRALINE 50 MG TAB PO SCH ×2 (02:33→08:16)
[2023-08-03 04:34] LABS: Amorphous Sediment,Urine Moderate /hpf; Appearance,Urine Cloudy (Clear); Bilirubin,Urine Negative (Negative); Blood,Urine Negative (Negative); Color,Urine Colorless; Glucose,Urine (UA) Negative (Negative); Ketones,Urine Negative (Negative); Leukocyte Esterase,Urine Negative (Negative); Nitrite,Urine Negative (Negative); Protein,Urine Negative (Negative); RBC,Urine 1 /hpf (0-5); Specific Gravity,Urine 1.016 (1.001-1.035); Urobilinogen,Urine <2.0 mg/dL (<2.0); WBC,Urine 1 /hpf (0-5)
--- NOTE | 2023-08-03 07:18 | P.CONS ---
History of Present Illness - Reason for Consult Consult date: 08/03/23 Anemia, positive occult stool Requesting physician: Farhan Kent - Chief Complaint Weakness, abnormal labs - History of Present Illness This is a pleasant 62-year-old female with chronic myeloid leukemia recently diagnosed in March 2023 on Imatinib Mesylate and follows with Dr. Dawkins. Patient has been anemic requiring blood transfusions approximately every 2 months with history of thrombocytosis. She has had multiple workups within the past year for anemia. Last upper endoscopy was 06/11/[address] Alexis with findings of mild antral gastritis, prior to that she had upper endoscopy in December 2022 again showing antral gastritis and last colonoscopy and upper endoscopy done at the same time was on 09/21/[address] Alexis which did find hemorrhagic gastritis, and colonoscopy significant for diverticulosis and external hemorrhoids. Patient presented to the emergency department yesterday directed by her physician for anemia. States she was supposed to get blood transfusion however her hemoglobin was significantly low and she was feeling increased weakness so she presented to the emergency department. She was noted to have a hemoglobin of 5.1 and has been transfused with 2 units of blood. She denies any anticoagulation use. Denies any abdominal pain, nausea or vomiting. No blood in her stool or black stool noted. Admitting labs: WBC 30.0 hemoglobin 5.1 hematocrit 18 platelet count 1752 INR 1.0 sodium 137 potassium 4.3 BUN 22 creatinine 0.8 total bilirubin 0.3 AST 39 ALT 20 alkaline phosphatase 56 amylase 76 lipase 225 Review of Systems REVIEW OF SYSTEMS: CARDIOPULMONARY: No chest pain or shortness of breath. Gastrointestinal: No abdominal pain or epigastric pain. No nausea or vomiting. No hematemesis, coffee-ground emesis. No rectal bleeding, or melena. GENITOURINARY: No dysuria or hematuria. MUSCULOSKELETAL: Reports normal range of motion. SKIN: No rashes. No jaundice. ENDOCRINE: No chills, fevers. No excessive weight gain or loss. No polydipsia or polyuria. PSYCHIATRIC: Unremarkable. NEUROLOGY: No change in mental status. Denies dizziness, headache. ENT: Vision unremarkable. CONSTITUTIONAL: No recent weight loss. No fever, chills, night sweats. Patient came in with increased weakness. Past Medical History Past Medical History: GERD/Reflux, Pneumonia, Rheumatoid Arthritis (RA) Additional Past Medical History / Comment(s): IP ADMISSION FORGASTRIC ULCER IN MAY 2022 WITH HIGH PLATELET & WHITE COUNT THROMBYTOSIS- (SEES DR DAWKINS). COPD, leukoplakia of the vocal cords, chronic shoulder back and neck pain, acid reflux, depression, raynaud's syndrome. takes aldactone for hair loss. CML History of Any Multi-Drug Resistant Organisms: MRSA Year Discovered:: 05/03/19 MDRO Source:: MRSA FACE Past Surgical History: Back Surgery, Cholecystectomy, Hernia Repair, Orthopedic Surgery, Tonsillectomy Additional Past Surgical History / Comment(s): arthroscopic shoulder, vocal cord scraping, adriana fundoplasty, CERVICAL FUSSION, recent EGD, colonoscopy. VENTRAL HERNIA. Past Anesthesia/Blood Transfusion Reactions: Blood Transfusion Reaction Additional Past Anesthesia/Blood Transfusion Reaction / Comm: TRANSFUSIONS WITH GASTRIC ULCER, no previous reactions Past Psychological History: Anxiety, Depression Smoking Status: Current every day smoker Past Alcohol Use History: None Reported Past Drug Use History: None Reported - Past Family History Mother History Unknown: Yes Family Medical History: Cancer Father Family Medical History: Unable to Obtain Medications and Allergies Home Medications Medication Instructions Recorded Confirmed Type Gabapentin 800 mg PO TID 05/01/14 08/02/23 History Topiramate 100 mg PO BID 05/01/14 08/02/23 History HYDROcodone/APAP 7.5-325MG [[place] 1 tab PO QID 03/11/16 08/02/23 History 7.5-325] Baclofen [Lioresal] 20 mg PO HS 07/02/17 08/02/23 History Sertraline [Zoloft] 50 mg PO DAILY 07/02/17 08/02/23 History buPROPion XL [Wellbutrin XL] 300 mg PO DAILY 07/02/17 08/02/23 History Multivit with Calcium,Iron,Min 1 tab PO DAILY 10/21/19 08/02/23 History [Women's Multivitamin] Spironolactone [Aldactone] 25 mg PO DAILY 12/21/21 08/02/23 History Aspirin [Adult Low Dose Aspirin EC] 81 mg PO Q48H 06/07/22 08/02/23 History Omeprazole [PriLOSEC] 20 mg PO AC-BRKFST #90 cap 06/09/22 08/02/23 Rx Clindamycin Phosphate 1 applic TOPICAL BID 01/16/23 08/02/23 History Tretinoin [Tretinoin 0.025%] 1 applic TOPICAL HS 01/16/23 08/02/23 History Lactulose [Cephulac] 30 gm PO BID PRN #600 ml 01/20/23 08/02/23 Rx Ondansetron Odt [Zofran ODT] 4 mg PO Q6H PRN 03/09/23 08/02/23 History Gabapentin 800 mg PO DAILY PRN 08/02/23 08/02/23 History Imatinib Mesylate 200 mg PO W/SUPPER 08/02/23 08/02/23 History Allergies Allergy/AdvReac Type Severity Reaction Status Date / Time metronidazole [From Flagyl] Allergy Itching, Verified 08/02/23 18:13 BURNING OF SKIN Physical Exam Vitals: Vital Signs Temp Pulse Resp BP Pulse Ox 08/03/23 06:05 81 16 105/67 96 08/03/23 04:00 83 16 98/63 97 08/03/23 02:00 97.9 F 91 19 100/62 98 08/03/23 00:12 86 16 101/72 97 08/02/23 23:52 98.0 F 83 16 108/62 98 08/02/23 21:22 98.4 F 93 14 108/62 08/02/23 20:15 98.4 F 99 16 120/67 08/02/23 20:00 101 H 16 112/69 08/02/23 19:45 89 10 L 119/68 97 08/02/23 19:30 87 16 121/72 97 08/02/23 19:15 86 17 119/71 97 08/02/23 19:00 85 16 125/72 98 08/02/23 18:45 93 15 133/63 97 08/02/23 18:35 98.6 F 89 14 124/74 08/02/23 18:30 90 19 118/72 97 08/02/23 18:15 87 11 L 118/72 99 08/02/23 18:00 90 26 H 118/72 08/02/23 17:45 90 17 118/72 08/02/23 17:30 90 14 118/72 99 08/02/23 17:15 92 17 118/72 100 08/02/23 17:14 96 10 L 100 08/02/23 16:42 98 F 110 H 26 H 130/52 96 Intake and Output 08/02/23 08/02/23 08/03/23 14:59 22:59 06:59 Intake Total 0 310 Balance 0 310 Intake: Blood Product 0 310 Rc Irr As1 Unit 0 [id number] Rc Irr As1 Unit 310 [id number] Other: Weight 45.813 kg General appearance: The patient is alert, oriented, appears in no acute distress. HET: Head is normocephalic and atraumatic. Conjunctiva pink. Sclera anicteric. Neck: Supple without lymphadenopathy. Trachea midline. Heart: Regular. Lungs: Equal expansion, normal respiratory effort. Abdomen: Soft, nontender, nondistended with bowel sounds. No guarding or rigidity. Skin: No rashes. No jaundice. Extremities: Normal skin color and turgor. No pedal edema. Neurological: No focal deficits. Alert and oriented x3. Results CBC & Chem 7: 08/02/23 17:00 08/02/23 17:00 Labs: Abnormal Lab Results - Last 24 Hours (Table) 08/02/23 08/02/23 08/02/23 Range/Units 17:00 17:00 17:00 WBC 30.0 H (3.8-10.6) k/uL RBC 1.98 L (3.80-5.40) m/uL Hgb 5.1 L* D (11.4-16.0) gm/dL Hct 18.2 L* (34.0-46.0) % MCHC 27.8 L (31.0-37.0) g/dL RDW 26.8 H (11.5-15.5) % Plt Count 1752 H* (150-450) k/uL Neutrophils # (Manual) 22.50 H (1.3-7.7) k/uL Monocytes # (Manual) 1.80 H (0-1.0) k/uL Eosinophils # (Manual) 1.20 H (0-0.7) k/uL Basophils # (Manual) 0.60 H (0-0.2) k/uL Metamyelocytes # (Man) 1.80 H (0) k/uL Myelocytes # (Manual) 0.60 H (0) k/uL Nucleated RBCs 5 H (0-0) /100 WBC Chloride 108 H (98-107) mmol/L Carbon Dioxide 20 L (22-30) mmol/L BUN 22 H (7-17) mg/dL Glucose 113 H (74-99) mg/dL AST 39 H (14-36) U/L Urine Appearance (Clear) Amorphous Sediment (None) /hpf Stool Occult Blood (Negative) Crossmatch See Detail 08/02/23 08/03/23 Range/Units 17:19 03:39 WBC (3.8-10.6) k/uL RBC (3.80-5.40) m/uL Hgb (11.4-16.0) gm/dL Hct (34.0-46.0) % MCHC (31.0-37.0) g/dL RDW (11.5-15.5) % Plt Count (150-450) k/uL Neutrophils # (Manual) (1.3-7.7) k/uL Monocytes # (Manual) (0-1.0) k/uL Eosinophils # (Manual) (0-0.7) k/uL Basophils # (Manual) (0-0.2) k/uL Metamyelocytes # (Man) (0) k/uL Myelocytes # (Manual) (0) k/uL Nucleated RBCs (0-0) /100 WBC Chloride (98-107) mmol/L Carbon Dioxide (22-30) mmol/L BUN (7-17) mg/dL Glucose (74-99) mg/dL AST (14-36) U/L Urine Appearance Cloudy H (Clear) Amorphous Sediment Moderate H (None) /hpf Stool Occult Blood Positive H (Negative) Crossmatch Assessment and Plan (1) Normocytic normochromic anemia Narrative/Plan: 62-year-old female presenting to the emergency department for increased weakness and fatigue and abnormal outpatient labs. Hemoglobin 5.1 noted with leukocytosis and thrombocytosis with a recent diagnosis of chronic myeloid leukemia on Imatinib Mesylate who has required blood transfusions in the past. States about every 2 months she needs a blood transfusion. She has had multiple endoscopic workups within the last year last 2 upper endoscopies done in May 2023 in December 2022 with findings of mild antral gastritis and no evidence of GI bleed. In August 2022 she did undergo EGD and colonoscopy. Upper endoscopy revealed hemorrhagic gastritis and and colonoscopy revealed diverticulosis and external hemorrhoids. Patient has no signs of any bleeding. Denies any black stool or blood in her stool. No abdominal pain nausea or vomiting. Positive occult stool however patient does have a history of external hemorrhoids. Likely anemia secondary to chronic myeloid leukemia. No plans on endoscopic evaluation. Current Visit: Yes Status: Acute Code(s): D64.9 - ANEMIA, UNSPECIFIED SNOMED Code(s): 27226579 (2) Chronic myeloid leukemia (CML), BCR/ABL-positive Current Visit: No Status: Chronic Priority: Medium Code(s): C92.10 - CHRONIC MYELOID LEUK, BCR/ABL-POSITIVE, NOT ACHIEVE REMIS SNOMED Code(s): 83470921 (3) Thrombocytosis Current Visit: No Status: Chronic Priority: Medium Code(s): D75.839 - THROMBOCYTOSIS, UNSPECIFIED SNOMED Code(s): 7590287 Plan: 1. Continue symptomatic and supportive care 2. Diet as tolerated 3. Daily CBC, transfuse for hemoglobin less than 7 4. Agree with blood transfusion 5. Patient has had multiple endoscopic evaluation with no evidence of GI bleed. No plans on endoscopic evaluation at this time. 6. Continue with recommendations from oncology Thank you for this consultation, we will sign off at this time. Dr. Salo Rehman I agree with the dictator's note, documented as a scribe by Zoey Albert.
[2023-08-03] MEDS: SPIRONOLACTONE 25 MG TAB PO SCH (08:16)
[2023-08-03] MEDS: buPROPion XL 300 MG TAB.ER.24H PO SCH (08:16)
[2023-08-03] MEDS: TOPIRAMATE 100 MG TAB PO SCH (08:16)
[2023-08-03 08:47] LABS: Anisocytosis Moderate; HCT 27.4 % (34.0-46.0); Hypochromasia Marked; MCH 27.6 pg (25.0-35.0); MCHC 29.3 g/dL (31.0-37.0); Macrocytosis Slight; Microcytosis Slight; Poikilocytosis Marked; RBC 2.91 m/uL (3.80-5.40); RDW 22.1 % (11.5-15.5); WBC 22.8 k/uL (3.8-10.6)
[2023-08-03 08:51] LABS: Platelet Count 1460 k/uL (150-450)
[2023-08-03] MEDS: HYDROcodone/APAP 7.5-325MG 1 EACH TAB PO PRN (09:54)
[2023-08-03 10:55] LABS: Band Neutrophils % 9 %; Basophils # (M) 1.37 k/uL (0-0.2); Eosinophils # (M) 0.68 k/uL (0-0.7); Metamyelocytes # (M) 0.91 k/uL (0); Metamyelocytes % 4 %; Monocytes # (M) 2.74 k/uL (0-1.0); Myelocytes # (M) 0.91 k/uL (0); Myelocytes % 4 %; Neutrophils % (M) 57 %; Nucleated Red Blood Cells 0 /100 WBC (0-0); Promyelocytes # (M) 0.23 k/uL (0); Promyelocytes % 1 %; Total Cells Counted 200
[2023-08-03 10:56] LABS: Large Platelets Present
[2023-08-03 10:58] LABS: Polychromasia Present; Target Cells Present
[2023-08-03 10:59] LABS: Mixed Population RBC Present
[2023-08-03] MEDS: SODIUM FERRIC GLUCONAT-SUCROSE 125 MG in SODIUM CHLORIDE 0.9% 100 ML IVPB SCH (12:00)
[2023-08-03 12:13] VITALS: BMI 17.3
[2023-08-03] MEDS: SUCRALFATE 1 GM TAB PO SCH (13:20)
--- NOTE | 2023-08-03 13:31 | P.HPIM ---
History of Present Illness H&P Date: 08/03/23 Chief Complaint: Positive occult stool This is a 62-year-old female with past medical history significant for CML recently diagnosed 04/21 on Gleevec,thrombocythemia, thrombocytosis with platelets greater than 1000 over the last 18-months, anemia-requiring blood transfusions approximately every 2 months, hypertension, depression, multiple and multiple other medical issues directed to the ER by her physician, Dr. Dawkins. Patient was scheduled for blood transfusion but hemoglobin discovered to be significantly low at 5.1 in addition to being symptomatic. Complains of over t he last 2 days feeling lightheaded, dizzy, near syncope in the shower. received 2 units packed RBCs. Multiple workups for her anemia previously completed last year; 05/2023, EGD reported mild antral gastritis, 01/20 EGD reported antral gastritis, 09/19 EGD and colonoscopy reported hemorrhagic gastritis, diverticulosis and external hemorrhoids. Patient denies nausea vomiting or diarrhea. Denies dark or bloody stools, denies chest pain, palpitations or shortness of breath. Denies bleeding. Murphy es abdominal pain. Complains of right shoulder pain which patient has been instructed to follow-up in clinic for potential steroid injection. On admission WBC 30, hemoglobin 5.1 ,platelets 1752 INR 1.0 sodium 137 potassium 4.3 BUN 22 creatinine 0.8, LFTs within normal limits with the exception of mildly elevated AST at 39 ,amylase 76 lipase 225. Current labs pending. Review of Systems ROS Statement: Those systems with pertinent positive or pertinent negative responses have been documented in the HPI. ROS Other: All systems not noted in ROS Statement are negative. Past Medical History Past Medical History: GERD/Reflux, Pneumonia, Rheumatoid Arthritis (RA) Additional Past Medical History / Comment(s): IP ADMISSION FORGASTRIC ULCER IN MAY 2022 WITH HIGH PLATELET & WHITE COUNT THROMBYTOSIS- (SEES DR DAWKINS). COPD, leukoplakia of the vocal cords, chronic shoulder back and neck pain, acid reflux, depression, raynaud's syndrome. takes aldactone for hair loss. CML History of Any Multi-Drug Resistant Organisms: MRSA Date of last positivie culture/infection: 05/03/19 MDRO Source:: MRSA FACE Past Surgical History: Back Surgery, Cholecystectomy, Hernia Repair, Orthopedic Surgery, Tonsillectomy Additional Past Surgical History / Comment(s): arthroscopic shoulder, vocal cord scraping, dariana fundoplasty, CERVICAL FUSSION, recent EGD, colonoscopy. VENTRAL HERNIA. Past Anesthesia/Blood Transfusion Reactions: Blood Transfusion Reaction Additional Past Anesthesia/Blood Transfusion Reaction / Comment(s): TRANSFUSIONS WITH GASTRIC ULCER, no previous reactions Past Psychological History: Anxiety, Depression Additional Psychological History / Comment(s): hx suicidal ideaation Smoking Status: Current every day smoker Past Alcohol Use History: None Reported Additional Past Alcohol Use History / Comment(s): smoked <ppd since age of 20. started smoking again recently, says 1 pack will last her 3days. Past Drug Use History: None Reported - Past Family History Mother History Unknown: Yes Family Medical History: Cancer Father Family Medical History: Unable to Obtain Medications and Allergies Home Medications Medication Instructions Recorded Confirmed Type Gabapentin 800 mg PO TID 05/01/14 08/02/23 History Topiramate 100 mg PO BID 05/01/14 08/02/23 History HYDROcodone/APAP 7.5-325MG [[place] 1 tab PO QID 03/11/16 08/02/23 History 7.5-325] Baclofen [Lioresal] 20 mg PO HS 07/02/17 08/02/23 History Sertraline [Zoloft] 50 mg PO DAILY 07/02/17 08/02/23 History buPROPion XL [Wellbutrin XL] 300 mg PO DAILY 07/02/17 08/02/23 History Multivit with Calcium,Iron,Min 1 tab PO DAILY 10/21/19 08/02/23 History [Women's Multivitamin] Spironolactone [Aldactone] 25 mg PO DAILY 12/21/21 08/02/23 History Aspirin [Adult Low Dose Aspirin EC] 81 mg PO Q48H 06/07/22 08/02/23 History Omeprazole [PriLOSEC] 20 mg PO AC-BRKFST #90 cap 06/09/22 08/02/23 Rx Clindamycin Phosphate 1 applic TOPICAL BID 01/16/23 08/02/23 History Tretinoin [Tretinoin 0.025%] 1 applic TOPICAL HS 01/16/23 08/02/23 History Lactulose [Cephulac] 30 gm PO BID PRN #600 ml 01/20/23 08/02/23 Rx Ondansetron Odt [Zofran ODT] 4 mg PO Q6H PRN 03/09/23 08/02/23 History Gabapentin 800 mg PO DAILY PRN 08/02/23 08/02/23 History Imatinib Mesylate 200 mg PO W/SUPPER 08/02/23 08/02/23 History Allergies Allergy/AdvReac Type Severity Reaction Status Date / Time metronidazole [From Flagyl] Allergy Itching, Verified 08/02/23 18:13 BURNING OF SKIN Physical Exam Vitals: Vital Signs Temp Pulse Pulse Resp BP BP Pulse Ox 08/03/23 08:05 98.0 F 79 20 106/69 99 08/03/23 08:00 79 20 08/03/23 06:05 81 16 105/67 96 08/03/23 04:00 83 16 98/63 97 08/03/23 02:00 97.9 F 91 19 100/62 98 08/03/23 00:12 86 16 101/72 97 08/02/23 23:52 98.0 F 83 16 108/62 98 08/02/23 21:22 98.4 F 93 14 108/62 08/02/23 20:15 98.4 F 99 16 120/67 08/02/23 20:00 101 H 16 112/69 08/02/23 19:45 89 10 L 119/68 97 08/02/23 19:30 87 16 121/72 97 08/02/23 19:15 86 17 119/71 97 08/02/23 19:00 85 16 125/72 98 08/02/23 18:45 93 15 133/63 97 08/02/23 18:35 98.6 F 89 14 124/74 08/02/23 18:30 90 19 118/72 97 08/02/23 18:15 87 11 L 118/72 99 08/02/23 18:00 90 26 H 118/72 08/02/23 17:45 90 17 118/72 08/02/23 17:30 90 14 118/72 99 08/02/23 17:15 92 17 118/72 100 08/02/23 17:14 96 10 L 100 08/02/23 16:42 98 F 110 H 26 H 130/52 96 Intake and Output 08/02/23 08/03/23 08/03/23 22:59 06:59 14:59 Intake Total 0 310 Balance 0 310 Intake: Blood Product 0 310 Rc Irr As1 Unit 0 [id number] Rc Irr As1 Unit 310 [id number] Other: Voiding Method Toilet # Voids 1 Weight 45.813 kg 45.813 kg PHYSICAL EXAM: VITAL SIGNS: [As above] GENERAL: Alert and oriented x 3, sitting up in bed, no acute distress HEENT: Normocephalic, atraumatic conjunctivae pink. eyes normal. Sclera anic teric NECK: Supple, no JVD. CARDIOVASCULAR: S1, S2 regular. No murmur RESPIRATION: Unlabored, equal air entry ,breath sounds diminished in the bases. No rhonchi or crackles. No bronchial breathing. ABDOMEN: Soft, nondistended, nontender . No guarding. no masses palpable. No ascites, No hepatosplenomegaly.Bowel sounds heard. LEGS: No edema. no swelling NERVOUS SYSTEM: Cranial N 2-12 grossly normal. Moves all 4 limbs. No focal deficits. Strength and sensation grossly intact. Skin: Warm and dry, no rash Results CBC & Chem 7: 08/03/23 07:45 08/02/23 17:00 Labs: Abnormal Lab Results - Last 24 Hours (Table) 08/02/23 08/02/23 08/02/23 Range/Units 17:00 17:00 17:00 WBC 30.0 H (3.8-10.6) k/uL RBC 1.98 L (3.80-5.40) m/uL Hgb 5.1 L* D (11.4-16.0) gm/dL Hct 18.2 L* (34.0-46.0) % MCHC 27.8 L (31.0-37.0) g/dL RDW 26.8 H (11.5-15.5) % Plt Count 1752 H* (150-450) k/uL Neutrophils # (Manual) 22.50 H (1.3-7.7) k/uL Monocytes # (Manual) 1.80 H (0-1.0) k/uL Eosinophils # (Manual) 1.20 H (0-0.7) k/uL Basophils # (Manual) 0.60 H (0-0.2) k/uL Metamyelocytes # (Man) 1.80 H (0) k/uL Myelocytes # (Manual) 0.60 H (0) k/uL Promyelocytes # (Man) (0) k/uL Nucleated RBCs 5 H (0-0) /100 WBC Chloride 108 H (98-107) mmol/L Carbon Dioxide 20 L (22-30) mmol/L BUN 22 H (7-17) mg/dL Glucose 113 H (74-99) mg/dL AST 39 H (14-36) U/L Urine Appearance (Clear) Amorphous Sediment (None) /hpf Stool Occult Blood (Negative) Crossmatch See Detail 08/02/23 08/03/23 08/03/23 Range/Units 17:19 03:39 07:45 WBC 22.8 H (3.8-10.6) k/uL RBC 2.91 L (3.80-5.40) m/uL Hgb 8.0 L D (11.4-16.0) gm/dL Hct 27.4 L (34.0-46.0) % MCHC 29.3 L (31.0-37.0) g/dL RDW 22.1 H (11.5-15.5) % Plt Count 1460 H* (150-450) k/uL Neutrophils # (Manual) 15.00 H (1.3-7.7) k/uL Monocytes # (Manual) 2.74 H (0-1.0) k/uL Eosinophils # (Manual) (0-0.7) k/uL Basophils # (Manual) 1.37 H (0-0.2) k/uL Metamyelocytes # (Man) 0.91 H (0) k/uL Myelocytes # (Manual) 0.91 H (0) k/uL Promyelocytes # (Man) 0.23 H (0) k/uL Nucleated RBCs (0-0) /100 WBC Chloride (98-107) mmol/L Carbon Dioxide (22-30) mmol/L BUN (7-17) mg/dL Glucose (74-99) mg/dL AST (14-36) U/L Urine Appearance Cloudy H (Clear) Amorphous Sediment Moderate H (None) /hpf Stool Occult Blood Positive H (Negative) Crossmatch Assessment and Plan Assessment: Acute on chronic symptomatic normocytic normochromic anemia, suspect related to CML, on Gleevec. Status post multiple workups last year without evidence of GI bleed. Positive occult blood in the patient with history of hemorrhoids .Status post 3 units of packed RBCs. 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 GI and oncology consults in place with recommendations noted and appreciated. No further endoscopy workup at this time as per GI. close monitoring of CBC with repeat labs ordered for a.m. Transfuse if hemoglobin less than 7. Labs pending. The impression and plan of care has been dictated as directed. : I performed a history and examination of this patient, discussed the same with the dictator. I agree with the dictator's note ,documented as a scribe. Any additional findings or plans will be noted.
--- NOTE | 2023-08-03 14:05 | P.CONS ---
History of Present Illness - Reason for Consult Consult date: 08/03/23 CML, anemia Requesting physician: Farhan Kent - Chief Complaint SOB, weakness, anemia - History of Present Illness Ms. Pickard is a 62-year-old woman with a past medical history significant for CML currently on Gleevec presenting with concern for SOB, weakness and low hemoglobin. Of note patient was seen on consult on 06/09/23 for similar symptoms and concern for GI bleed. Had EGD on 06/11 which showed no active GI bleed. Over the past week, she has been having progressive weakness and orthostatic dizziness and SOB with associated chest discomfort. She denies blood in stool and melena. Patient was seen in clinic on 07/31/23 for Follow-up and was noted to have a hemoglobin of 6.5. We recommended hospital admission for blood transfusion, as it would not be possible to schedule one outpatient quickly. The patient did not want to go to the hospital. She stated that she would rather have it as an outpatient, and she was scheduled for next available infusion on 08/02, however symptoms progressed causing her to present for further evaluation. Iron studies on 05/11/2023 in clinic were consistent with iron deficiency and she received Feraheme on 05/17/2023 and 05/23/2023. Repeat iron studies on 07/31/23 revealed iron saturation 8.3%, ferritin 35.0, and was being scheduled for outpt fareheme infusions. Will started parenteral iron while inpt. Upon admission hemoglobin was noted at 5.1, WBC 30.0, platelets 1752. Patient was transfused 2 units PRBCs. Repeat hgb today 8.0. Stool occult positive. She denies blood in stool and melena. Patient reports significant improvement in symptoms today s/p blood transfusions. Reports having mild epigastric discomfort and increased gas/flatulence. Denies diarrhea, nausea and vomiting. Last dose of Gleevec was on Sunday. GI has been consulted. No plan for endoscopic evaluation at this time. Review of Systems 10 point ROS is negative except as stated in the HPI Past Medical History Past Medical History: GERD/Reflux, Pneumonia, Rheumatoid Arthritis (RA) Additional Past Medical History / Comment(s): IP ADMISSION FORGASTRIC ULCER IN MAY 2022 WITH HIGH PLATELET & WHITE COUNT THROMBYTOSIS- (SEES DR REBOLLEDO). COPD, leukoplakia of the vocal cords, chronic shoulder back and neck pain, acid reflux, depression, raynaud's syndrome. takes aldactone for hair loss. CML History of Any Multi-Drug Resistant Organisms: MRSA Year Discovered:: 05/03/19 MDRO Source:: MRSA FACE Past Surgical History: Back Surgery, Cholecystectomy, Hernia Repair, Orthopedic Surgery, Tonsillectomy Additional Past Surgical History / Comment(s): arthroscopic shoulder, vocal cord scraping, dariana fundoplasty, CERVICAL FUSSION, recent EGD, colonoscopy. VENTRAL HERNIA. Past Anesthesia/Blood Transfusion Reactions: Blood Transfusion Reaction Additional Past Anesthesia/Blood Transfusion Reaction / Comm: TRANSFUSIONS WITH GASTRIC ULCER, no previous reactions Past Psychological History: Anxiety, Depression Additional Psychological History / Comment(s): hx suicidal ideaation Smoking Status: Current every day smoker Past Alcohol Use History: None Reported Additional Past Alcohol Use History / Comment(s): smoked <ppd since age of 20. started smoking again recently, says 1 pack will last her 3days. Past Drug Use History: None Reported - Past Family History Mother History Unknown: Yes Family Medical History: Cancer Father Family Medical History: Unable to Obtain Medications and Allergies Home Medications Medication Instructions Recorded Confirmed Type Gabapentin 800 mg PO TID 05/01/14 08/02/23 History Topiramate 100 mg PO BID 05/01/14 08/02/23 History HYDROcodone/APAP 7.5-325MG [[place] 1 tab PO QID 03/11/16 08/02/23 History 7.5-325] Baclofen [Lioresal] 20 mg PO HS 07/02/17 08/02/23 History Sertraline [Zoloft] 50 mg PO DAILY 07/02/17 08/02/23 History buPROPion XL [Wellbutrin XL] 300 mg PO DAILY 07/02/17 08/02/23 History Multivit with Calcium,Iron,Min 1 tab PO DAILY 10/21/19 08/02/23 History [Women's Multivitamin] Spironolactone [Aldactone] 25 mg PO DAILY 12/21/21 08/02/23 History Aspirin [Adult Low Dose Aspirin EC] 81 mg PO Q48H 06/07/22 08/02/23 History Omeprazole [PriLOSEC] 20 mg PO -BRKFST #90 cap 06/09/22 08/02/23 Rx Clindamycin Phosphate 1 applic TOPICAL BID 01/16/23 08/02/23 History Tretinoin [Tretinoin 0.025%] 1 applic TOPICAL HS 01/16/23 08/02/23 History Lactulose [Cephulac] 30 gm PO BID PRN #600 ml 01/20/23 08/02/23 Rx Ondansetron Odt [Zofran ODT] 4 mg PO Q6H PRN 03/09/23 08/02/23 History Gabapentin 800 mg PO DAILY PRN 08/02/23 08/02/23 History Imatinib Mesylate 200 mg PO W/SUPPER 08/02/23 08/02/23 History Allergies Allergy/AdvReac Type Severity Reaction Status Date / Time metronidazole [From Flagyl] Allergy Itching, Verified 08/02/23 18:13 BURNING OF SKIN Physical Exam Vitals: Vital Signs Temp Pulse Pulse Resp BP BP Pulse Ox 08/03/23 08:05 98.0 F 79 20 106/69 99 08/03/23 06:05 81 16 105/67 96 08/03/23 04:00 83 16 98/63 97 08/03/23 02:00 97.9 F 91 19 100/62 98 08/03/23 00:12 86 16 101/72 97 08/02/23 23:52 98.0 F 83 16 108/62 98 08/02/23 21:22 98.4 F 93 14 108/62 08/02/23 20:15 98.4 F 99 16 120/67 08/02/23 20:00 101 H 16 112/69 08/02/23 19:45 89 10 L 119/68 97 08/02/23 19:30 87 16 121/72 97 08/02/23 19:15 86 17 119/71 97 08/02/23 19:00 85 16 125/72 98 08/02/23 18:45 93 15 133/63 97 08/02/23 18:35 98.6 F 89 14 124/74 08/02/23 18:30 90 19 118/72 97 08/02/23 18:15 87 11 L 118/72 99 08/02/23 18:00 90 26 H 118/72 08/02/23 17:45 90 17 118/72 08/02/23 17:30 90 14 118/72 99 08/02/23 17:15 92 17 118/72 100 08/02/23 17:14 96 10 L 100 08/02/23 16:42 98 F 110 H 26 H 130/52 96 Intake and Output 08/02/23 08/03/23 08/03/23 22:59 06:59 14:59 Intake Total 0 310 Balance 0 310 Intake: Blood Product 0 310 Rc Irr As1 Unit 0 [id number] Rc Irr As1 Unit 310 [id number] Other: # Voids 1 Weight 45.813 kg 45.813 kg - Constitutional General appearance: no acute distress - EENT Eyes: anicteric sclerae, EOMI ENT: hearing grossly normal - Respiratory Respiratory: bilateral: CTA - Cardiovascular Rhythm: regular Heart sounds: normal: S1, S2 - Gastrointestinal General gastrointestinal: soft, no tenderness - Integumentary Integumentary: no cyanotic, no jaundiced - Neurologic Neurologic: CNII-XII intact - Musculoskeletal Musculoskeletal: strength equal bilaterally - Psychiatric Psychiatric: A&O x's 3 Results CBC & Chem 7: 08/03/23 07:45 08/02/23 17:00 Labs: Abnormal Lab Results - Last 24 Hours (Table) 08/02/23 08/02/23 08/02/23 Range/Units 17:00 17:00 17:00 WBC 30.0 H (3.8-10.6) k/uL RBC 1.98 L (3.80-5.40) m/uL Hgb 5.1 L* D (11.4-16.0) gm/dL Hct 18.2 L* (34.0-46.0) % MCHC 27.8 L (31.0-37.0) g/dL RDW 26.8 H (11.5-15.5) % Plt Count 1752 H* (150-450) k/uL Neutrophils # (Manual) 22.50 H (1.3-7.7) k/uL Monocytes # (Manual) 1.80 H (0-1.0) k/uL Eosinophils # (Manual) 1.20 H (0-0.7) k/uL Basophils # (Manual) 0.60 H (0-0.2) k/uL Metamyelocytes # (Man) 1.80 H (0) k/uL Myelocytes # (Manual) 0.60 H (0) k/uL Nucleated RBCs 5 H (0-0) /100 WBC Chloride 108 H (98-107) mmol/L Carbon Dioxide 20 L (22-30) mmol/L BUN 22 H (7-17) mg/dL Glucose 113 H (74-99) mg/dL AST 39 H (14-36) U/L Urine Appearance (Clear) Amorphous Sediment (None) /hpf Stool Occult Blood (Negative) Crossmatch See Detail 08/02/23 08/03/23 08/03/23 Range/Units 17:19 03:39 07:45 WBC 22.8 H (3.8-10.6) k/uL RBC 2.91 L (3.80-5.40) m/uL Hgb 8.0 L D (11.4-16.0) gm/dL Hct 27.4 L (34.0-46.0) % MCHC 29.3 L (31.0-37.0) g/dL RDW 22.1 H (11.5-15.5) % Plt Count (150-450) k/uL Neutrophils # (Manual) (1.3-7.7) k/uL Monocytes # (Manual) (0-1.0) k/uL Eosinophils # (Manual) (0-0.7) k/uL Basophils # (Manual) (0-0.2) k/uL Metamyelocytes # (Man) (0) k/uL Myelocytes # (Manual) (0) k/uL Nucleated RBCs (0-0) /100 WBC Chloride (98-107) mmol/L Carbon Dioxide (22-30) mmol/L BUN (7-17) mg/dL Glucose (74-99) mg/dL AST (14-36) U/L Urine Appearance Cloudy H (Clear) Amorphous Sediment Moderate H (None) /hpf Stool Occult Blood Positive H (Negative) Crossmatch CT Scan - head: report reviewed Assessment and Plan (1) Anemia Current Visit: Yes Status: Acute Priority: High Code(s): D64.9 - ANEMIA, UNSPECIFIED SNOMED Code(s): 168598900 (2) Chronic myeloid leukemia (CML), BCR/ABL-positive Current Visit: Yes Status: Chronic Priority: Medium Code(s): C92.10 - CHRONIC MYELOID LEUK, BCR/ABL-POSITIVE, NOT ACHIEVE REMIS SNOMED Code(s): 86716534 (3) Leukocytosis Current Visit: Yes Status: Chronic Priority: Medium Code(s): D72.829 - ELEVATED WHITE BLOOD CELL COUNT, UNSPECIFIED SNOMED Code(s): 053635084 (4) Thrombocytosis Current Visit: Yes Status: Chronic Priority: Medium Code(s): D75.839 - THROMBOCYTOSIS, UNSPECIFIED SNOMED Code(s): 5341657 Plan: Normocytic hypochromic anemia -Multifactorial including chronic from CML, and acute bleed, however recent workup did not see active bleed -Hgb on admit 5.1 , s/p 2 unit PRBCs with appropriate increase in Hgb. Stable today at 8.0, with significant improvement in symptoms -Iron studies performed outpatient on 07/31/23 revealed iron saturation 8.3%, ferritin 35.0, and was being scheduled for outpt fareheme infusions. Will started parenteral iron while inpt, and will schedule outpt fareheme transfusion pending how much iron she receives while inpt -Hx of hemorrhagic gastritis. Repeat EGD on 06/11 neg for acute findings or bleeding. GI consulted, no plan for endoscopic evaluation at this time. No reported episodes of blood in stool or melena. IV PPI ordered. Will start carafate to see if this helps with symptoms Thrombocytosis, leukocytosis, acute on chronic - Started treatment of CML in Feb and had shown improvements in plt and white counts - It is not clear if the persistent elevation of WBC and platelets is due to lack of effectiveness of the Gleevec, and/or blood loss and/or inflammation from RA CML -Diagnosed December 2022 -Initiated Gleevec 03/14/2023 with progressive decrease in leukocytosis and thrombocytosis -Gleevec held while inpt. Pt instructed to resume when she gets home, with 400 mg, alternating with 200 mg every other day -Hospital f/u scheduled for next week attests: I have performed H&P and developed impression and plan of care for patient, discussed with dictator. I agree with dictated note, documented as a scribe
[2023-08-04] MEDS: ONDANSETRON 4 MG/2 ML VIAL IVP PRN (06:32)
[2023-08-04 10:41] LABS: HCT 24.1 % (37.2-46.3); HGB 7.5 g/dL (12.0-15.0); MCHC 31.1 g/dL (32.0-37.0); MCV 93.1 FL (80.0-97.0); Mean Platelet Volume 10.2 FL (9.5-12.2); NRBC Per 100 WBC 0.42 X 10*3/uL (0.00-0.01); Platelet Count 1466 X 10*3/uL (140-440); RBC 2.59 X 10*6/uL (4.10-5.20); WBC 23.38 X 10*3/uL (4.50-10.00)
[2023-08-04 10:44] LABS: Anisocytosis (M) 2+; Basophils # (M) 3.04 X 10*3/uL (0.00-0.10); Eosinophils # (M) 1.17 X 10*3/uL (0.04-0.35); Hypochromasia (M) 2+; Lymphocytes # (M) 1.17 X 10*3/uL (0.90-5.00); Metamyelocytes % 7 % (0-0); Myelocytes % 1 % (0-0); Neutrophils # (M) 14.03 X 10*3/uL (1.80-7.70); Neutrophils % (M) 60 %; Nucleated Red Blood Cells 5 /100 WBCS; Schistocytes 1+
--- NOTE | 2023-08-04 12:55 | P.PN ---
Subjective Progress Note Date: 08/04/23 This is a 62-year-old female with past medical history significant for CML recently diagnosed 04/21 on Gleevec,thrombocythemia, thrombocytosis with platelets greater than 1000 over the last 18-months, anemia-requiring blood transfusions approximately every 2 months, hypertension, depression, multiple and multiple other medical issues directed to the ER by her physician, Dr. Dawkins. Patient was scheduled for blood transfusion but hemoglobin discovered to be significantly low at 5.1 in addition to being symptomatic. Complains of over the last 2 days feeling lightheaded, dizzy, near syncope in the shower. received 2 units packed RBCs. Multiple workups for her anemia previously completed last year; 05/2023, EGD reported mild antral gastritis, 01/20 EGD reported antral gastritis, 09/19 EGD and colonoscopy reported hemorrhagic gastritis, diverticulosis and external hemorrhoids. Patient denies nausea vomiting or diarrhea. Denies dark or bloody stools, denies chest pain, palpitations or shortness of breath. Denies bleeding. Denies abdominal pain. Complains of right shoulder pain which patient has been instructed to follow-up in clinic for potential steroid injection. On admission WBC 30, hemoglobin 5.1 ,platelets 1752 INR 1.0 sodium 137 potassium 4.3 BUN 22 creatinine 0.8, LFTs within normal limits with the exception of mildly elevated AST at 39 ,amylase 76 lipase 225. 4/6. Patient seen and examined. No acute issues overnight. Blood work done this morning showed WBC 23.38, hemoglobin 7.5, platelet count 1466,. Patient complaining of having trouble taking deep breaths, denies any shortness of breath but states that sometimes she has to take a minute to catch her breath REVIEW OF SYSTEMS: CONSTITUTIONAL: No fever, no malaise,. CARDIOVASCULAR: No chest pain, no palpitations, no syncope. PULMONARY: As mentioned above GASTROINTESTINAL: No diarrhea, no nausea, no vomiting, no abdominal pain. NEUROLOGICAL: No headaches, no weakness, PHYSICAL EXAMINATION: GENERAL: The patient is alert and oriented x3, not in any acute distress. Well developed, well nourished. HEENT: Pupils are round and equally reacting to light. EOMI. No scleral icterus. No conjunctival pallor. Normocephalic, atraumatic. No pharyngeal erythema. No thyromegaly. CARDIOVASCULAR: S1 and S2 present. No murmurs, rubs, or gallops. PULMONARY: Chest is clear to auscultation, no wheezing or crackles. ABDOMEN: Soft, nontender, nondistended, normoactive bowel sounds. No palpable organomegaly. MUSCULOSKELETAL: No joint swelling or deformity. EXTREMITIES: No cyanosis, clubbing, or pedal edema. NEUROLOGICAL: Gross neurological examination did not reveal any focal deficits. SKIN: No rashes. Assessment and plan Acute on chronic symptomatic normocytic normochromic anemia, suspect related to CML, on Gleevec. Status post multiple workups last year without evidence of GI bleed. Positive occult blood in the patient with history of hemorrhoids .Status post 3 units of packed RBCs. CML, diagnosed December 2022 ,started treatments in February 2023 Acute on chronic thrombocytosis,related to holding Gleevec, Leukocytosis Essential thrombocythemia Gradually Worsening splenomegaly secondary to CML Chronic thoracic back pain and tenderness, prior MRI reported age-related degenerative changes throughout the thoracic spine with multilevel disc bulging most pronounced at T2-T3, central disc protrusion C6-C7 History of COPD, stable Hypertension GERD Rheumatoid arthritis History of anxiety/depression Continued ongoing nicotine dependence Moderate calorie protein malnutrition Monitor vital signs Monitor CBC Monitor CMP Continue telemetry monitoring Continue pain management Continue IV iron Continue Carafate Continue Protonix Ordered chest x-ray and D-dimer Hematology oncology following GI evaluated patient, recommended that patient had multiple previous endoscopic evaluation with no evidence of GI bleed, recommended no endoscopy at this time Labs and medication were reviewed.. Continue same treatment. Continue with symptomatic treatment. Resume home medication. Monitor labs and vitals. DVT and GI prophylaxis. Further recommendations as per clinical course of the patient Dictation was produced using [employer] dictation software. please excuse any grammatical, word or spelling errors. Objective - Vital Signs Vital signs: Vital Signs Temp 98.1 F 08/04/23 08:00 Pulse 71 08/04/23 08:00 Resp 17 08/04/23 08:00 BP 101/61 08/04/23 08:00 Pulse Ox 100 08/04/23 08:00 FiO2 Intake & Output 08/03/23 08/04/23 08/04/23 18:59 06:59 18:59 Intake Total 1200 Balance 1200 Weight 45.813 kg Intake: Oral 1200 Other: Voiding Method Toilet # Voids 3 4 - Labs CBC & Chem 7: 08/04/23 06:31 08/02/23 17:00 Labs: Abnormal Lab Results - Last 24 Hours (Table) 08/03/23 Range/Units 07:45 Plt Count 1460 H* (150-450) k/uL Neutrophils # (Manual) 15.00 H (1.3-7.7) k/uL Monocytes # (Manual) 2.74 H (0-1.0) k/uL Basophils # (Manual) 1.37 H (0-0.2) k/uL Metamyelocytes # (Man) 0.91 H (0) k/uL Myelocytes # (Manual) 0.91 H (0) k/uL Promyelocytes # (Man) 0.23 H (0) k/uL
--- NOTE | 2023-08-04 13:42 | XR ---
EXAMINATION TYPE: XR chest 2V DATE OF EXAM: 08/04/2023 COMPARISON: 03/09/2023 HISTORY: Shortness of breath TECHNIQUE: Frontal and lateral views of the chest are obtained. FINDINGS: Scattered senescent parenchymal changes noted. Hyperinflation compatible with COPD. No evidence for infiltrate. No evidence for atelectasis. Heart size is stable. Mediastinal structures are stable and grossly unremarkable. No evidence for hilar prominence. Degenerative changes dorsal spine. IMPRESSION: 1. No evidence for acute pulmonary disease.
--- NOTE | 2023-08-04 16:22 | CT ---
EXAMINATION TYPE: CT angio chest DATE OF EXAM: 08/04/2023 COMPARISON: None HISTORY: elevated d-dimer CT DLP: 192.9 mGycm CONTRAST: CT chest with contrast and 3D reconstruction with MIP imaging is performed with IV Contrast, patient injected with 100 ml mL of Isovue 370. Contrast-enhanced CT of the chest was performed through the course of the pulmonary arteries with elvis g and mediastinal window settings submitted. 3D reconstruction with MIP imaging was also performed. PULMONARY ARTERIES: The pulmonary arteries and their major tributaries are patent. I do not see joe dence for sizable filling defect to suggest pulmonary embolic process. LUNGS: The lungs are clear and free of infiltrate. Scattered emphysematous changes are noted. Evidenc e for atelectasis. No pulmonary nodule or mass is detected. No pleural effusion. MEDIASTINUM: Thoracic aorta is of normal caliber. The heart is mildly enlarged. No evidence for med iastinal mass. No mediastinal lymph nodes greater than 1cm. HILAR STRUCTURES: No evidence for mass. No hilar lymph nodes greater than 1 cm. UPPER ABDOMEN: No significant abnormality is seen. IMPRESSION: 1. No evidence for Pulmonary embolism at this time.
[2023-08-04] MEDS: SENNOSIDES 8.6 MG TAB PO PRN (22:27)
[2023-08-05] MEDS: LORazepam 2 MG/ML INJ IV STA (02:20)
[2023-08-05 08:28] VITALS: BP 111/71; PULSE 80; RESP 18; TEMP 98.2
[2023-08-05 09:55] LABS: ALT 14 U/L (8-44); AST 22 U/L (13-35); Albumin 3.6 g/dL (3.8-4.9); Albumin/Globulin Ratio 2.12 Ratio (1.60-3.17); Alkaline Phosphatase 52 U/L (41-126); BUN/Creat Ratio 13.67 Ratio (12.00-20.00); Blood Urea Nitrogen 12.3 mg/dL (9.0-27.0); Calcium 9.2 mg/dL (8.7-10.3); Carbon Dioxide 23.4 mmol/L (21.6-31.8); Chloride 111 mmol/L (96-109); Globulin 1.7 g/dL (1.6-3.3); Glucose 78 mg/dL (70-110); Potassium 4.5 mmol/L (3.5-5.5); Sodium 142 mmol/L (135-145); Total Bilirubin <0.2 mg/dL (0.3-1.2); Total Protein 5.3 g/dL (6.2-8.2)
[2023-08-05 11:10] LABS: Anisocytosis (M) 3+; Eosinophils # (M) 0.85 X 10*3/uL (0.04-0.35); HCT 25.1 % (37.2-46.3); HGB 7.6 g/dL (12.0-15.0); Hypochromasia (M) 2+; Lymphocytes # (M) 1.98 X 10*3/uL (0.90-5.00); MCH 28.1 pg (27.0-32.0); MCHC 30.3 g/dL (32.0-37.0); Mean Platelet Volume 9.9 FL (9.5-12.2); Metamyelocytes % 2 % (0-0); Monocytes # (M) 1.13 X 10*3/uL (0.20-1.00); Myelocytes % 4 % (0-0); NRBC Per 100 WBC 0.45 X 10*3/uL (0.00-0.01); Neutrophils # (M) 19.28 X 10*3/uL (1.80-7.70); Neutrophils % (M) 68 %; Nucleated Red Blood Cells 8 /100 WBCS; Platelet Count 1529 X 10*3/uL (140-440); RDW 26.6 % (11.5-14.5); Schistocytes 1+; WBC 28.35 X 10*3/uL (4.50-10.00)
--- NOTE | 2023-08-05 12:35 | P.DS ---
Providers Date of admission: 08/02/23 19:55 Expected date of discharge: 08/05/23 Attending physician: Bashir Jefferson MD Consults: 08/02/23 23:53 Consult Physician Urgent Consulting Provider: Alexandro Dawkins Consult Reason/Comments: Hx CML anemia Do you want consulting provider notified?: Yes Consult Physician Urgent Consulting Provider: Constance Rehman Consult Reason/Comments: anemia (+) Occult stool Do you want consulting provider notified?: Yes Primary care physician: Katja Jefferson Hospital Course: Discharge diagnoses; Acute on chronic symptomatic normocytic normochromic anemia, suspect related to CML, on Gleevec. Status post multiple workups last year without evidence of GI bleed. Positive occult blood in the patient with history of hemorrhoids .Status post 3 units of packed RBCs. CML, diagnosed December 2022 ,started treatments in February 2023 Acute on chronic thrombocytosis,related to holding Gleevec, Leukocytosis Essential thrombocythemia Gradually Worsening splenomegaly secondary to CML Chronic thoracic back pain and tenderness, prior MRI reported age-related degenerative changes throughout the thoracic spine with multilevel disc bulging most pronounced at T2-T3, central disc protrusion C6-C7 History of COPD, stable Hypertension GERD Rheumatoid arthritis History of anxiety/depression Continued ongoing nicotine dependence Moderate calorie protein malnutrition Hospital course; This is a 62-year-old female with past medical history significant for CML recently diagnosed 04/21 on Gleevec,thrombocythemia, thrombocytosis with platelets greater than 1000 over the last 18-months, anemia-requiring blood transfusions approximately every 2 months, hypertension, depression, multiple and multiple other medical issues directed to the ER by her physician, Dr. Dawkins. Patient was scheduled for blood transfusion but hemoglobin discovered to be significantly low at 5.1 in addition to being symptomatic. Complains of over the last 2 days feeling lightheaded, dizzy, near syncope in the shower. received 2 units packed RBCs. Multiple workups for her anemia previously completed last year; 05/2023, EGD reported mild antral gastritis, 01/20 EGD reported antral ga stritis, 09/19 EGD and colonoscopy reported hemorrhagic gastritis, diverticulosis and external hemorrhoids. Patient denies nausea vomiting or diarrhea. Denies dark or bloody stools, denies chest pain, palpitations or shortness of breath. Denies bleeding. Denies abdominal pain. Complains of right shoulder pain which patient has been instructed to follow-up in clinic for potential steroid injection. On admission WBC 30, hemoglobin 5.1 ,platelets 1752 INR 1.0 sodium 137 potassium 4.3 BUN 22 creatinine 0.8, LFTs within normal limits with the exception of mildly elevated AST at 39 ,amylase 76 lipase 225. 4/6. Patient seen and examined. No acute issues overnight. Blood work done this morning showed WBC 23.38, hemoglobin 7.5, platelet count 1466,. Patient complaining of having trouble taking deep breaths, denies any shortness of breath but states that sometimes she has to take a minute to catch her breath /7. Patient seen and examined. CTA chest done yesterday was negative for PE,. Blood work done this morning showed WBC 28.35, hemoglobin 7.6, platelet count 1529. Hematology oncology recommended holding off Gleevec till they see the patientin outpatient settings, cleared the patient for discharge PHYSICAL EXAMINATION: GENERAL: The patient is alert and oriented x3, not in any acute distress. Well developed, well nourished. HEENT: Pupils are round and equally reacting to light. EOMI. No scleral icterus. No conjunctival pallor. Normocephalic, atraumatic. No pharyngeal erythema. No thyromegaly. CARDIOVASCULAR: S1 and S2 present. No murmurs, rubs, or gallops. PULMONARY: Chest is clear to auscultation, no wheezing or crackles. ABDOMEN: Soft, nontender, nondistended, normoactive bowel sounds. No palpable organomegaly. MUSCULOSKELETAL: No joint swelling or deformity. EXTREMITIES: No cyanosis, clubbing, or pedal edema. NEUROLOGICAL: Gross neurological examination did not reveal any focal deficits. SKIN: No rashes. Dictation was produced using [employer] dictation software. please excuse any grammatical, word or spelling errors. Patient Condition at Discharge: Good Plan - Discharge Summary New Discharge Prescriptions: No Action Topiramate 100 mg PO BID Gabapentin 800 mg PO TID HYDROcodone/APAP 7.5-325MG [[place] 7.5-325] 1 tab PO QID Baclofen [Lioresal] 20 mg PO HS buPROPion XL [Wellbutrin XL] 300 mg PO DAILY Sertraline [Zoloft] 50 mg PO DAILY Multivit with Calcium,Iron,Min [Women's Multivitamin] 1 tab PO DAILY Aspirin [Adult Low Dose Aspirin EC] 81 mg PO Q48H Omeprazole [PriLOSEC] 20 mg PO AC-BRKFST #90 cap Clindamycin Phosphate 1 applic TOPICAL BID Tretinoin [Tretinoin 0.025%] 1 applic TOPICAL HS Lactulose [Cephulac] 30 gm PO BID PRN #600 ml PRN Reason: Constipation Gabapentin 800 mg PO DAILY PRN PRN Reason: Pain Imatinib Mesylate 200 mg PO W/SUPPER Spironolactone [Aldactone] 25 mg PO DAILY Ondansetron Odt [Zofran ODT] 4 mg PO Q6H PRN PRN Reason: Nausea Discharge Medication List Gabapentin 800 mg PO TID 05/01/14 [History] Topiramate 100 mg PO BID 05/01/14 [History] HYDROcodone/APAP 7.5-325MG [[place] 7.5-325] 1 tab PO QID 03/11/16 [History] Baclofen [Lioresal] 20 mg PO HS 07/02/17 [History] Sertraline [Zoloft] 50 mg PO DAILY 07/02/17 [History] buPROPion XL [Wellbutrin XL] 300 mg PO DAILY 07/02/17 [History] Multivit with Calcium,Iron,Min [Women's Multivitamin] 1 tab PO DAILY 10/21/19 [History] Spironolactone [Aldactone] 25 mg PO DAILY 12/21/21 [History] Aspirin [Adult Low Dose Aspirin EC] 81 mg PO Q48H 06/07/22 [History] Omeprazole [PriLOSEC] 20 mg PO AC-BRKFST #90 cap 06/09/22 [Rx] Clindamycin Phosphate 1 applic TOPICAL BID 01/16/23 [History] Tretinoin [Tretinoin 0.025%] 1 applic TOPICAL HS 01/16/23 [History] Lactulose [Cephulac] 30 gm PO BID PRN #600 ml 01/20/23 [Rx] Ondansetron Odt [Zofran ODT] 4 mg PO Q6H PRN 03/09/23 [History] Gabapentin 800 mg PO DAILY PRN 08/02/23 [History] Imatinib Mesylate 200 mg PO W/SUPPER 08/02/23 [History] Follow up Appointment(s)/Referral(s): Katja Jefferson DO [Primary Care Provider] - 1-2 days
--- NOTE | 2023-08-05 13:49 | P.PN ---
Subjective Progress Note Date: 08/05/23 Principal diagnosis: CML -No acute events overnight -Improved dizziness, palpitations, and chest discomfort -Denies any new signs or symptoms Objective - Vital Signs Vital signs: Vital Signs Temp 98.2 F 08/05/23 07:50 Pulse 80 08/05/23 07:50 Resp 18 08/05/23 07:50 BP 111/71 08/05/23 07:50 Pulse Ox 94 L 08/05/23 07:50 FiO2 Intake & Output 08/04/23 08/05/23 08/05/23 18:59 06:59 18:59 Other: # Voids 3 5 - Constitutional Constitutional Comment(s): Seated in bed and eating lunch General appearance: Present: cooperative, no acute distress - EENT Eyes: Present: EOMI - Respiratory Respiratory: bilateral: CTA - Cardiovascular Rhythm: regular - Gastrointestinal General gastrointestinal: Present: soft. Absent: distended - Integumentary Integumentary: Present: pale. Absent: rash - Neurologic Neurologic: Present: CNII-XII intact. Absent: focal deficits - Labs CBC & Chem 7: 08/05/23 05:31 08/05/23 05:31 Labs: Abnormal Lab Results - Last 24 Hours (Table) 08/04/23 08/05/23 08/05/23 Range/Units 13:46 05:31 05:31 WBC 28.35 H (4.50-10.00) X 10*3/uL RBC 2.70 L (4.10-5.20) X 10*6/uL Hgb 7.6 L (12.0-15.0) g/dL Hct 25.1 L (37.2-46.3) % MCHC 30.3 L (32.0-37.0) g/dL RDW 26.6 H (11.5-14.5) % Plt Count 1529 A* (140-440) X 10*3/uL Monocytes # (Manual) 1.13 H (0.20-1.00) X 10*3/uL Eosinophils # (Manual) 0.85 H (0.04-0.35) X 10*3/uL Basophils # (Manual) 3.40 H (0.00-0.10) X 10*3/uL NRBC/100 WBC Diff 0.45 H (0.00-0.01) X 10*3/uL Hypochromasia (manual) 2+ A Anisocytosis (manual) 3+ A Schistocytes 1+ A D-Dimer 1.40 H (<0.60) mg/L FEU Chloride 111 H (96-109) mmol/L Total Bilirubin <0.2 L (0.3-1.2) mg/dL Total Protein 5.3 L (6.2-8.2) g/dL Albumin 3.6 L (3.8-4.9) g/dL Assessment and Plan (1) Iron deficiency anemia Current Visit: Yes Status: Acute Code(s): D50.9 - IRON DEFICIENCY ANEMIA, UNSPECIFIED SNOMED Code(s): 88488261 (2) Chronic myeloid leukemia (CML), BCR/ABL-positive Current Visit: Yes Status: Chronic Priority: Medium Code(s): C92.10 - CHRONIC MYELOID LEUK, BCR/ABL-POSITIVE, NOT ACHIEVE REMIS SNOMED Code(s): 60896543 Plan: Normocytic hypochromic anemia with iron deficiency -Multifactorial including chronic from CML, and acute bleed, however recent workup did not see active bleed -Hgb on admit 5.1 , s/p 2 unit PRBCs with appropriate increase in Hgb. Stable today at 8.0, with significant improvement in symptoms -Iron studies performed outpatient on 07/31/23 revealed iron saturation 8.3%, ferritin 35.0, and was being scheduled for outpt fareheme infusions -Hx of hemorrhagic gastritis. Repeat EGD on 06/11 neg for acute findings or bleeding. GI consulted, no plan for endoscopic evaluation at this time. -Received 3 treatments of ferric gluconate since admission with stable hemoglobin since red blood cell transfusions -She has had repeated episodes of iron deficiency in the past. Could be possible she has some component of blood loss secondary to angiodysplasias in the gut -Repeat iron studies outpatient Thrombocytosis, leukocytosis, acute on chronic -Started treatment of CML in Feb and had shown improvements in plt and white counts -It is not clear if the persistent elevation of WBC and platelets is due to lack of effectiveness of the Gleevec, and/or blood loss and/or inflammation from RA -She will need repeat BCR-ABL PCR outpatient to assess response to Gleevac CML -Diagnosed December 2022 -Initiated Gleevec 03/14/2023 with progressive decrease in leukocytosis and thrombocytosis -Gleevec held while hospitalized -I instructed her to continue holding Gleevac until we could repeat CBC outpatient later this week -We will also arrange for [facility] visit over the next 1 to 2 weeks with next appointment on 08/30/2023 with her primary assistant program manager Dr. Dawkins She is cleared for discharge from a hematology perspective Luis Hernandez MD
== END 2023-08-05 13:53 | disposition home or self-care (01) | DRG 841 ==
LOC: EC 16:36 → 5NMEDONC 19:55 → 4SSUR 08-03 02:43
PROVIDERS: ADMIT Family Medicine; ATTEND Family Medicine
PROC: 30233N1 Transfusion of Nonautologous Red Blood Cells into Peripheral Vein, Percutaneous Approach (ICD-10-PCS; principal; 2023-08-02)
DX: C92.10 Chronic myeloid leukemia, BCR/ABL-positive, not having achieved remission (principal); E44.0 Moderate protein-calorie malnutrition; Z68.1 Body mass index [BMI] 19.9 or less, adult; F17.200 Nicotine dependence, unspecified, uncomplicated; D47.3 Essential (hemorrhagic) thrombocythemia; D50.9 Iron deficiency anemia, unspecified; D75.839 Thrombocytosis, unspecified; F32.A Depression, unspecified; D63.8 Anemia in other chronic diseases classified elsewhere; F41.9 Anxiety disorder, unspecified; I10 Essential (primary) hypertension; K21.9 Gastro-esophageal reflux disease without esophagitis; M06.9 Rheumatoid arthritis, unspecified; Z79.82 Long term (current) use of aspirin; Z79.899 Other long term (current) drug therapy
CPT/HCPCS: 36415; 36430; 70450; 71046; 71275; 80053; 81001; 82150; 82272; 83690; 83735; 84484; 85025; 85379; 85610; 85730; 86850; 86900; 86901; 86920; 93005; 96374; 99285

== ENCOUNTER → 2023-08-10 | Outpatient (CLI) | payer MEDICARE, OTHER ==
--- NOTE | 2023-08-10 15:33 | US ---
EXAMINATION TYPE: US venous doppler duplex UE LT DATE OF EXAM: 08/10/2023 COMPARISON: NONE CLINICAL INDICATION: Female, 62 years old with history of R22.9 LOCALIZED SWELLING, MASS AND LUMP, UN SPECIFI; IV placed anterior/lateral forearm last week, rednes pain and swelling SIDE PERFORMED: left Left Arm: Negative for DVT at the area of pain and swelling, there is occlusive thrombus at the effected cephalic vein (SVT) The cephalic vein is patent proximal to this area IMPRESSION: No evidence of DVT. SVT as noted.
== END | disposition home or self-care (01) ==
LOC: RADUSWWP 14:15
PROVIDERS: ATTEND Family Medicine
DX: I47.10 Supraventricular tachycardia, unspecified (principal); I82.612 Acute embolism and thrombosis of superficial veins of left upper extremity; R22.32 Localized swelling, mass and lump, left upper limb

== ENCOUNTER 2023-10-04 15:25 | Inpatient (IN) | payer MEDICARE, OTHER ==
--- NOTE | 2023-10-04 15:54 | ED ---
General Adult HPI - General Chief complaint: Weakness Stated complaint: Possible low hemoglobin Time Seen by Provider: 10/04/23 15:27 Source: patient, EMS Mode of arrival: EMS - History of Present Illness Initial comments: This patient is a 63-year-old woman with history of CML and chronic anemia who presents to have evaluation because she suspects she is even more anemic. She has been having dyspnea with exertion, she states that her balance sometimes seems off. Patient states in the past she has had to have transfusion. The symptoms have been getting worse over the past few days. She is not having chest pain, palpitations, diaphoresis or syncope. Onset/Timin -: days(s) Severity scale (1-10): 0 Consistency: intermittent Improves with: none Worsens with: none Associated Symptoms: shortness of breath Treatments Prior to Arrival: none - Related Data Home Medications Medication Instructions Recorded Confirmed Gabapentin 800 mg PO TID 05/01/14 10/04/23 Topiramate 100 mg PO BID 05/01/14 10/04/23 HYDROcodone/APAP 7.5-325MG [Mobile 1 tab PO QID 03/11/16 10/04/23 7.5-325] Baclofen [Lioresal] 20 mg PO HS 07/02/17 10/04/23 Sertraline [Zoloft] 50 mg PO DAILY 07/02/17 10/04/23 buPROPion XL [Wellbutrin XL] 300 mg PO DAILY 07/02/17 10/04/23 Multivit with Calcium,Iron,Min 1 tab PO DAILY 10/21/19 10/04/23 [Women's Multivitamin] Spironolactone [Aldactone] 25 mg PO DAILY 12/21/21 10/04/23 Aspirin [Adult Low Dose Aspirin EC] 81 mg PO Q48H 06/07/22 10/04/23 Clindamycin Phosphate 1 applic TOPICAL BID 01/16/23 10/04/23 Tretinoin [Tretinoin 0.025%] 1 applic TOPICAL HS 01/16/23 10/04/23 Ondansetron Odt [Zofran ODT] 4 mg PO Q6H PRN 03/09/23 10/04/23 Gabapentin 800 mg PO DAILY PRN 08/02/23 10/04/23 Imatinib Mesylate 200 mg PO PC-SUPPER 08/02/23 10/04/23 Previous Rx's Medication Instructions Recorded Omeprazole [PriLOSEC] 20 mg PO AC-BRKFST #90 cap 06/09/22 Lactulose [Cephulac] 30 gm PO BID PRN #600 ml 01/20/23 Ferrous Sulfate [Feosol] 325 mg PO BID #60 tab 08/05/23 Albuterol Inhaler [Ventolin Hfa 1 puff INHALATION Q6H PRN #1 each 10/06/23 Inhaler] Famotidine [Pepcid] 20 mg PO HS #30 tab 10/06/23 hydrOXYzine pamoate [Vistaril] 25 mg PO BID PRN #4 cap 10/06/23 Allergies Allergy/AdvReac Type Severity Reaction Status Date / Time metronidazole [From Flagyl] Allergy Itching, Verified 10/04/23 16:30 BURNING OF SKIN Review of Systems ROS Statement: Those systems with pertinent positive or pertinent negative responses have been documented in the HPI. ROS Other: All systems not noted in ROS Statement are negative. Constitutional: Reports: weakness. Denies: fever, chills Eyes: Denies: vision change Respiratory: Denies: cough, dyspnea, wheezes Cardiovascular: Reports: dyspnea on exertion. Denies: chest pain, palpitations, edema, syncope Gastrointestinal: Denies: abdominal pain, nausea, vomiting, melena, hematochezia Genitourinary: Denies: dysuria, hematuria Musculoskeletal: Denies: back pain Skin: Denies: rash Neurological: Denies: headache, weakness, numbness Hematological/Lymphatic: Denies: easy bleeding Past Medical History Past Medical History: GERD/Reflux, Pneumonia, Rheumatoid Arthritis (RA) Additional Past Medical History / Comment(s): IP ADMISSION FORGASTRIC [facility] IN MAY 2022 WITH HIGH PLATELET & WHITE COUNT THROMBYTOSIS- (SEES DR REBOLLEDO). COPD, leukoplakia of the vocal cords, chronic shoulder back and neck pain, acid reflux, depression, raynaud's syndrome. takes aldactone for hair loss. CML History of Any Multi-Drug Resistant Organisms: MRSA Date of last positivie culture/infection: 05/03/19 MDRO Source:: MRSA FACE Past Surgical History: Back Surgery, Cholecystectomy, Hernia Repair, Orthopedic Surgery, Tonsillectomy Additional Past Surgical History / Comment(s): arthroscopic shoulder, vocal cord scraping, dariana fundoplasty, CERVICAL FUSSION, recent EGD, colonoscopy. VENTRAL HERNIA. Past Anesthesia/Blood Transfusion Reactions: Blood Transfusion Reaction Additional Past Anesthesia/Blood Transfusion Reaction / Comment(s): TRANSFUSIONS WITH GASTRIC ULCER, no previous reactions Past Psychological History: Anxiety, Depression Smoking Status: Current every day smoker Past Alcohol Use History: None Reported Past Drug Use History: None Reported - Past Family History Mother History Unknown: Yes Family Medical History: Cancer Father Family Medical History: Unable to Obtain General Exam General appearance: alert, in no apparent distress Head exam: Present: atraumatic, normocephalic Eye exam: Present: normal appearance. Absent: scleral icterus, conjunctival injection ENT exam: Present: normal oropharynx Neck exam: Present: normal inspection Respiratory exam: Present: normal lung sounds bilaterally. Absent: respiratory distress, wheezes, rales, rhonchi, stridor, accessory muscle use Cardiovascular Exam: Present: regular rate, normal rhythm, normal heart sounds. Absent: systolic murmur, diastolic murmur, rubs, gallop GI/Abdominal exam: Present: soft. Absent: distended, tenderness, guarding, rebound, rigid, mass Extremities exam: Present: normal inspection, normal capillary refill. Absent: pedal edema, calf tenderness Back exam: Present: normal inspection. Absent: CVA tenderness (R), CVA tenderness (L) Neurological exam: Present: alert Skin exam: Present: warm, dry, intact, normal color. Absent: rash Course Vital Signs 10/04/23 10/04/23 10/04/23 15:29 20:20 20:33 Temperature 98.0 F 98.7 F Pulse Rate 82 80 76 Pulse Rate [ Pulse Oximetery ] Respiratory 20 16 16 Rate Blood Pressure 118/77 106/66 106/72 O2 Sat by Pulse 100 99 100 Oximetry 10/04/23 10/04/23 20:53 21:32 Temperature 98.1 F Pulse Rate 76 Pulse Rate [ 77 Pulse Oximetery ] Respiratory 16 16 Rate Blood Pressure 98/64 O2 Sat by Pulse 100 Oximetry EKG Findings - EKG Results: EKG: interpreted by FRANCESCA, sinus rhythm (Rate 78 bpm), normal axis, normal QRS, normal ST/T, no acute changes Medical Decision Making - Medical Decision Making The patient had chest x-ray which I interpreted as negative for acute infiltrate, pneumothorax, congestive heart failure Was pt. sent in by a medical professional or institution ([facility], [facility], urgent care, hospital, or senior care...) When possible be specific @ -[No] Did you speak to anyone other than the patient for history (EMS, parent, family, police, friend...)? What history was obtained from this source @ -[No] Did you review nursing and triage notes (agree or disagree)? Why? @ -[I reviewed and agree with nursing and triage notes] Were old charts reviewed (outside hosp., previous admission, EMS record, old EKG, old radiological studies, urgent care reports/EKG's, senior care records)? Report findings @ -Yes, old charts were reviewed Differential Diagnosis (chest pain, altered mental status, abdominal pain women, abdominal pain men, vaginal bleeding, weakness, fever, dyspnea, syncope, heada daniella, dizziness, GI bleed, back pain, seizure, CVA, palpatations, mental health, musculoskeletal)? @ -[not applicable] EKG interpreted by me (3pts min.). @ -[As above] X-rays interpreted by me (1pt min.). @ -[I interpreted as above CT interpreted by me (1pt min.). @ -[None done] U/S interpreted by me (1pt. min.). @ -[None done] What testing was considered but not performed or refused? (CT, X-rays, U/S, labs)? Why? @ -[None] What meds were considered but not given or refused? Why? @ -[None] Did you discuss the management of the patient with other professionals (professionals i.e. [facility], [facility], lab, RT, psych nurse, socially responsible investment adviser, drawing in machine tender helper, teacher, accounting officer, case folder)? Give summary @ -[Was discussed with admitting physician and also with hematology and treatment recommendations incorporated Was smoking cessation discussed for >3mins.? @ -[No] Was critical care preformed (if so, how long)? @ -[No] Were there social determinants of health that impacted care today? How? (H omelessness, low income, unemployed, alcoholism, drug addiction, transportation, low edu. Level, literacy, decrease access to med. care, shelter, rehab)? @ -[No] Was there de-escalation of care discussed even if they declined (Discuss DNR or withdrawal of care, Hospice)? DNR status @ -[No] What co-morbidities impacted this encounter? (DM, HTN, Smoking, COPD, CAD, Cancer, CVA, ARF, Chemo, Hep., AIDS, mental health diagnosis, sleep apnea, morbid obesity)? @ -[History of leukemia as well as anemia requiring transfusions in the past. Was patient admitted / discharged? Hospital course, mention meds given and route, prescriptions, significant lab abnormalities, going to OR and other pertinent info. @ -[Patient is 63-year-old woman here with fatigue and dizziness which she has had with previous anemia. The patient found to be anemic and will be admitted to have transfusion and hematology consultation Undiagnosed new problem with uncertain prognosis? @ -[No] Drug Therapy requiring intensive monitoring for toxicity (Heparin, Nitro, Insulin, Cardizem)? @ -[No] Were any procedures done? @ -[No] Diagnosis/symptom? @ -[Acute on chronic anemia Leukocytosis, chronic Thrombocytosis, chronic Acute, or Chronic, or Acute on Chronic? @ -[default] Uncomplicated (without systemic symptoms) or Complicated (systemic symptoms)? @ -[Uncomplicated Side effects of treatment? @ -[No] Exacerbation, Progression, or Severe Exacerbation? @ -[No] Poses a threat to life or bodily function? How? (Chest pain, [place], [place], pneumonia, PE, COPD, DKA, ARF, appy, cholecystitis, CVA, Diverticulitis, Homicidal, Suicidal, threat to staff... and all critical care pts) @ -[Yes - Lab Data Result diagrams: 10/07/23 06:50 10/04/23 16:05 Lab Results 10/04/23 10/04/23 10/04/23 Range/Units 16:05 16:05 16:05 WBC 32.7 H (3.8-10.6) k/uL RBC 2.23 L (3.80-5.40) m/uL Hgb 6.4 L* D (11.4-16.0) gm/dL Hct 22.4 L (34.0-46.0) % MCV 100.2 H D (80.0-100.0) fL MCH 28.5 (25.0-35.0) pg MCHC 28.4 L (31.0-37.0) g/dL RDW 28.4 H (11.5-15.5) % Plt Count 1600 H* (150-450) k/uL MPV 8.5 Neutrophils % (Manual) 68 % Band Neuts % (Manual) 6 % Lymphocytes % (Manual) 8 % Monocytes % (Manual) 4 % Eosinophils % (Manual) 3 % Basophils % (Manual) 2 % Metamyelocytes % 6 % Myelocytes % 6 % Neutrophils # (Manual) 24.10 H (1.3-7.7) k/uL Lymphocytes # (Manual) 2.62 (1.0-4.8) k/uL Monocytes # (Manual) 1.31 H (0-1.0) k/uL Eosinophils # (Manual) 0.98 H (0-0.7) k/uL Basophils # (Manual) 0.65 H (0-0.2) k/uL Metamyelocytes # (Man) 1.96 H (0) k/uL Myelocytes # (Manual) 1.96 H (0) k/uL Nucleated RBCs 5 H (0-0) /100 WBC Manual Slide Review Performed Large Platelets Present Polychromasia Present Hypochromasia Marked Poikilocytosis Slight Basophilic Stippling Present Anisocytosis Marked Microcytosis Slight Macrocytosis Marked A Target Cells Present Stomatocytes Present PT 11.1 (10.0-12.5) sec INR 1.0 (<1.2) APTT 23.7 (22.0-30.0) sec D-Dimer 0.76 H (<0.60) mg/L FEU Sodium 137 (137-145) mmol/L Potassium 4.2 (3.5-5.1) mmol/L Chloride 106 (98-107) mmol/L Carbon Dioxide 27 (22-30) mmol/L Anion Gap 4 mmol/L BUN 19 H (7-17) mg/dL Creatinine 0.91 (0.52-1.04) mg/dL Est GFR (CKD-EPI)AfAm 79 (>60 ml/min/1.73 sqM) Est GFR (CKD-EPI)NonAf 68 (>60 ml/min/1.73 sqM) Glucose 97 (74-99) mg/dL Plasma Lactic Acid Avel (0.7-2.0) mmol/L Calcium 9.9 (8.4-10.2) mg/dL Total Bilirubin 0.8 (0.2-1.3) mg/dL AST 45 H (14-36) U/L ALT 26 (4-34) U/L Alkaline Phosphatase 54 (38-126) U/L Troponin I (0.000-0.034) ng/mL NT-Pro-B Natriuret Pep 286 pg/mL Total Protein 6.2 L (6.3-8.2) g/dL Albumin 4.1 (3.5-5.0) g/dL Blood Type Blood Type Recheck Bld Type Recheck Status Antibody Screen Crossmatch Spec Expiration Date 10/04/23 10/04/23 10/04/23 Range/Units 16:05 16:05 18:05 WBC (3.8-10.6) k/uL RBC (3.80-5.40) m/uL Hgb (11.4-16.0) gm/dL Hct (34.0-46.0) % MCV (80.0-100.0) fL MCH (25.0-35.0) pg MCHC (31.0-37.0) g/dL RDW (11.5-15.5) % Plt Count (150-450) k/uL MPV Neutrophils % (Manual) % Band Neuts % (Manual) % Lymphocytes % (Manual) % Monocytes % (Manual) % Eosinophils % (Manual) % Basophils % (Manual) % Metamyelocytes % % Myelocytes % % Neutrophils # (Manual) (1.3-7.7) k/uL Lymphocytes # (Manual) (1.0-4.8) k/uL Monocytes # (Manual) (0-1.0) k/uL Eosinophils # (Manual) (0-0.7) k/uL Basophils # (Manual) (0-0.2) k/uL Metamyelocytes # (Man) (0) k/uL Myelocytes # (Manual) (0) k/uL Nucleated RBCs (0-0) /100 WBC Manual Slide Review Large Platelets Polychromasia Hypochromasia Poikilocytosis Basophilic Stippling Anisocytosis Microcytosis Macrocytosis Target Cells Stomatocytes PT (10.0-12.5) sec INR (<1.2) APTT (22.0-30.0) sec D-Dimer (<0.60) mg/L FEU Sodium (137-145) mmol/L Potassium (3.5-5.1) mmol/L Chloride (98-107) mmol/L Carbon Dioxide (22-30) mmol/L Anion Gap mmol/L BUN (7-17) mg/dL Creatinine (0.52-1.04) mg/dL Est GFR (CKD-EPI)AfAm (>60 ml/min/1.73 sqM) Est GFR (CKD-EPI)NonAf (>60 ml/min/1.73 sqM) Glucose (74-99) mg/dL Plasma Lactic Acid Avel 1.2 (0.7-2.0) mmol/L Calcium (8.4-10.2) mg/dL Total Bilirubin (0.2-1.3) mg/dL AST (14-36) U/L ALT (4-34) U/L Alkaline Phosphatase (38-126) U/L Troponin I <0.012 (0.000-0.034) ng/mL NT-Pro-B Natriuret Pep pg/mL Total Protein (6.3-8.2) g/dL Albumin (3.5-5.0) g/dL Blood Type B Negative Blood Type Recheck B Neg Bld Type Recheck Status No Antibody Screen NEGATIVE Crossmatch See Detail Spec Expiration Date 10/07/2023 - 230410/05/23 Range/Units 12:40 WBC 25.9 H (3.8-10.6) k/uL RBC 2.56 L (3.80-5.40) m/uL Hgb 7.4 L (11.4-16.0) gm/dL Hct 25.1 L (34.0-46.0) % MCV 98.2 (80.0-100.0) fL MCH 28.9 (25.0-35.0) pg MCHC 29.5 L (31.0-37.0) g/dL RDW 27.3 H (11.5-15.5) % Plt Count 1446 H* (150-450) k/uL MPV 8.4 Neutrophils % (Manual) 78 % Band Neuts % (Manual) 1 % Lymphocytes % (Manual) 11 % Monocytes % (Manual) 2 % Eosinophils % (Manual) 2 % Basophils % (Manual) % Metamyelocytes % 5 % Myelocytes % 1 % Neutrophils # (Manual) 20.40 H (1.3-7.7) k/uL Lymphocytes # (Manual) 2.85 (1.0-4.8) k/uL Monocytes # (Manual) 0.52 (0-1.0) k/uL Eosinophils # (Manual) 0.52 (0-0.7) k/uL Basophils # (Manual) (0-0.2) k/uL Metamyelocytes # (Man) 1.30 H (0) k/uL Myelocytes # (Manual) 0.26 H (0) k/uL Nucleated RBCs 8 H (0-0) /100 WBC Manual Slide Review Performed Large Platelets Present Polychromasia Hypochromasia Marked Poikilocytosis Moderate Basophilic Stippling Anisocytosis Marked Microcytosis Slight Macrocytosis Marked A Target Cells Present Stomatocytes Present PT (10.0-12.5) sec INR (<1.2) APTT (22.0-30.0) sec D-Dimer (<0.60) mg/L FEU Sodium (137-145) mmol/L Potassium (3.5-5.1) mmol/L Chloride (98-107) mmol/L Carbon Dioxide (22-30) mmol/L Anion Gap mmol/L BUN (7-17) mg/dL Creatinine (0.52-1.04) mg/dL Est GFR (CKD-EPI)AfAm (>60 ml/min/1.73 sqM) Est GFR (CKD-EPI)NonAf (>60 ml/min/1.73 sqM) Glucose (74-99) mg/dL Plasma Lactic Acid Avel (0.7-2.0) mmol/L Calcium (8.4-10.2) mg/dL Total Bilirubin (0.2-1.3) mg/dL AST (14-36) U/L ALT (4-34) U/L Alkaline Phosphatase (38-126) U/L Troponin I (0.000-0.034) ng/mL NT-Pro-B Natriuret Pep pg/mL Total Protein (6.3-8.2) g/dL Albumin (3.5-5.0) g/dL Blood Type Blood Type Recheck Bld Type Recheck Status Antibody Screen Crossmatch Spec Expiration Date Disposition Clinical Impression: Anemia, Thrombocytosis, Leukocytosis Disposition: ADMITTED IP TO THIS HOSP Condition: Fair Is patient prescribed a controlled substance at d/c from ED?: No
[2023-10-04 16:25] LABS: Anisocytosis Marked; HCT 22.4 % (34.0-46.0); Hypochromasia Marked; MCH 28.5 pg (25.0-35.0); MCHC 28.4 g/dL (31.0-37.0); Macrocytosis Marked; Mean Platelet Volume 8.5; Microcytosis Slight; Poikilocytosis Slight; RBC 2.23 m/uL (3.80-5.40)
--- NOTE | 2023-10-04 16:27 | XR ---
EXAMINATION TYPE: XR chest 2V DATE OF EXAM: 10/04/2023 COMPARISON: 08/04/2023 HISTORY: Shortness of breath TECHNIQUE: Frontal and lateral views of the chest are obtained. FINDINGS: There is hyperinflation lungs and flattening the diaphragms consistent with COPD. There is no abnormal airspace/consolidative opacity or abnormal interstitial opacities. There is no pleural effusion or pneumothorax. The heart and pulmonary vasculature are normal. The osseous structures are intact IMPRESSION: 1. No acute cardiopulmonary disease. 2. COPD. 3. No interval change.
[2023-10-04 16:37] LABS: ALT 26 U/L (4-34); AST 45 U/L (14-36); African American GFR (CKD) 79 (>60 ml/min/1.73 sqM); Albumin 4.1 g/dL (3.5-5.0); Alkaline Phosphatase 54 U/L (38-126); Anion Gap 4 mmol/L; Blood Urea Nitrogen 19 mg/dL (7-17); Calcium 9.9 mg/dL (8.4-10.2); Carbon Dioxide 27 mmol/L (22-30); Chloride 106 mmol/L (98-107); Glucose 97 mg/dL (74-99); Non-African American GFR(CKD) 68 (>60 ml/min/1.73 sqM); Potassium 4.2 mmol/L (3.5-5.1); Sodium 137 mmol/L (137-145); Total Bilirubin 0.8 mg/dL (0.2-1.3); Total Protein 6.2 g/dL (6.3-8.2)
[2023-10-04 16:39] LABS: RDW 28.4 % (11.5-15.5)
[2023-10-04 16:40] LABS: HGB 6.4 gm/dL (11.4-16.0); MCV 100.2 fL (80.0-100.0)
[2023-10-04 16:41] LABS: Platelet Count 1600 k/uL (150-450)
[2023-10-04 16:44] LABS: NT-Pro-B-Type Natriuretic Pept 286 pg/mL
[2023-10-04 16:48] LABS: Partial Thromboplastin Time 23.7 sec (22.0-30.0); Prothrombin Time 11.1 sec (10.0-12.5)
[2023-10-04] MEDS ORDERED: NALOXONE 0.4 MG/ML 1 ML VIAL IV PRN (17:17)
[2023-10-04 17:35] LABS: Band Neutrophils % 6 %; Metamyelocytes % 6 %; Myelocytes % 6 %; Neutrophils % (M) 68 %; Nucleated Red Blood Cells 5 /100 WBC (0-0); Total Cells Counted 200
[2023-10-04 17:36] LABS: Basophilic Stippling Present; Large Platelets Present; Polychromasia Present; Stomatocytes Present; Target Cells Present
[2023-10-04 17:37] LABS: Basophils # (M) 0.65 k/uL (0-0.2); Eosinophils # (M) 0.98 k/uL (0-0.7); Lymphocytes # (M) 2.62 k/uL (1.0-4.8); Metamyelocytes # (M) 1.96 k/uL (0); Monocytes # (M) 1.31 k/uL (0-1.0); Myelocytes # (M) 1.96 k/uL (0); WBC 32.7 k/uL (3.8-10.6)
[2023-10-04] MEDS: MORPHINE SULFATE 4 MG/ML SYRINGE IV STA (18:37)
[2023-10-04] MEDS: HYDROmorphone 0.5 MG/0.5 ML SYRINGE IVP STA (18:41)
[2023-10-04] MEDS: SODIUM CHLORIDE 0.9% 1,000 ML IV SCH (18:41)
[2023-10-04] MEDS: FAMOTIDINE 20 MG TAB PO SCH (20:54)
[2023-10-04] MEDS ORDERED: FAMOTIDINE 20 MG TAB PO SCH (21:00)
[2023-10-04] MEDS ORDERED: LACTULOSE 20 GM/30 ML CUP PO PRN (22:10)
[2023-10-04] MEDS: BACLOFEN 10 MG TAB PO SCH (22:48)
[2023-10-04] MEDS: HYDROcodone/APAP 7.5-325MG 1 EACH TAB PO SCH (22:49)
[2023-10-04] MEDS: hydrOXYzine pamoate 25 MG CAP PO PRN (22:49)
[2023-10-04] MEDS: GABAPENTIN 400 MG CAP PO SCH (22:49)
[2023-10-05] MEDS: ONDANSETRON ODT 4 MG TAB PO PRN (01:05)
[2023-10-05] MEDS: ACETAMINOPHEN TAB 325 MG TAB PO PRN (05:48)
[2023-10-05] MEDS: NON FORMULARY DRUG (Clindamycin Phosphate [Clindamycin Phosphate] 30 ML Solution) TOPICAL SCH (08:24)
[2023-10-05] MEDS: TOPIRAMATE 100 MG TAB PO SCH (08:25)
[2023-10-05] MEDS: buPROPion XL 300 MG TAB.ER.24H PO SCH (08:25)
[2023-10-05] MEDS: SPIRONOLACTONE 25 MG TAB PO SCH (08:26)
[2023-10-05] MEDS: MULTIVITAMINS, THERA 1 EACH TAB PO SCH (08:26)
[2023-10-05] MEDS: SERTRALINE 50 MG TAB PO SCH (08:26)
[2023-10-05] MEDS: PANTOPRAZOLE 40 MG TABLET PO SCH (08:26)
[2023-10-05] MEDS ORDERED: ALBUTEROL HFA INHALER INHALATION PRN (09:52)
--- NOTE | 2023-10-05 13:17 | P.HPIM ---
History of Present Illness H&P Date: 10/05/23 Chief Complaint: progressive weakness, fatigue, shortness of breath Is a 63-year-old female with past medical history significant for CML, multiple workups within the last year for anemia, follows regularly with Dr. Dawkins, presented to the ER with progressive symptomatic anemia, weakness, exertional dyspnea, fatigue. Reports she recently was at Dr. Dawkins's office on Sunday with a hemoglobin level reported at 7.9. Denies anticoagulation use. denies any nausea, vomiting, abdominal pain.denies any bleeding, no blood in stools no black stools no hematochezia, melena or hematemesis. Denies syncope. Denies chest pain or palpitations. Troponin negative x 1. EKG reported sinus rhythm. on admission hemoglobin 6.4 noted with leukocytosis and thrombocytosis in a patient with CML; WBC 32.7 ,platelets 1600, INR 1, electrolytes within normal limits, renal function stable. T. bili 0.8, AST 45, ALT 26, alk phos 54. proBNP 286 1 unit packed RBCs transfused, repeat hemoglobin pending. Chest x- ray reported no acute cardiopulmonary disease, COPD, no interval change. Review of Systems ROS Statement: Those systems with pertinent positive or pertinent negative responses have been documented in the HPI. ROS Other: All systems not noted in ROS Statement are negative. Past Medical History Past Medical History: GERD/Reflux, Pneumonia, Rheumatoid Arthritis (RA) Additional Past Medical History / Comment(s): IP ADMISSION FORGASTRIC ULCER IN MAY 2022 WITH HIGH PLATELET & WHITE COUNT THROMBYTOSIS- (SEES DR DAWKINS). COPD, leukoplakia of the vocal cords, chronic shoulder back and neck pain, acid reflux, depression, raynaud's syndrome. takes aldactone for hair loss. CML History of Any Multi-Drug Resistant Organisms: MRSA Date of last positivie culture/infection: 05/03/19 MDRO Source:: MRSA FACE Past Surgical History: Back Surgery, Cholecystectomy, Hernia Repair, Orthopedic Surgery, Tonsillectomy Additional Past Surgical History / Comment(s): arthroscopic shoulder, vocal cord scraping, dariana fundoplasty, CERVICAL FUSSION, recent EGD, colonoscopy. VENTRAL HERNIA. Past Anesthesia/Blood Transfusion Reactions: Blood Transfusion Reaction Additional Past Anesthesia/Blood Transfusion Reaction / Comment(s): TRANSFUSIONS WITH GASTRIC ULCER, no previous reactions Past Psychological History: Anxiety, Depression Additional Psychological History / Comment(s): hx suicidal ideaation Smoking Status: Current every day smoker Past Alcohol Use History: None Reported Additional Past Alcohol Use History / Comment(s): smoked <ppd since age of 20. started smoking again recently, says 1 pack will last her 3days. Past Drug Use History: None Reported - Past Family History Mother History Unknown: Yes Family Medical History: Cancer Father Family Medical History: Unable to Obtain Medications and Allergies Home Medications Medication Instructions Recorded Confirmed Type Gabapentin 800 mg PO TID 05/01/14 10/04/23 History Topiramate 100 mg PO BID 05/01/14 10/04/23 History HYDROcodone/APAP 7.5-325MG [Lexa 1 tab PO QID 03/11/16 10/04/23 History 7.5-325] Baclofen [Lioresal] 20 mg PO HS 07/02/17 10/04/23 History Sertraline [Zoloft] 50 mg PO DAILY 07/02/17 10/04/23 History buPROPion XL [Wellbutrin XL] 300 mg PO DAILY 07/02/17 10/04/23 History Multivit with Calcium,Iron,Min 1 tab PO DAILY 10/21/19 10/04/23 History [Women's Multivitamin] Spironolactone [Aldactone] 25 mg PO DAILY 12/21/21 10/04/23 History Aspirin [Adult Low Dose Aspirin EC] 81 mg PO Q48H 06/07/22 10/04/23 History Omeprazole [PriLOSEC] 20 mg PO AC-BRKFST #90 cap 06/09/22 10/04/23 Rx Clindamycin Phosphate 1 applic TOPICAL BID 01/16/23 10/04/23 History Tretinoin [Tretinoin 0.025%] 1 applic TOPICAL HS 01/16/23 10/04/23 History Lactulose [Cephulac] 30 gm PO BID PRN #600 ml 01/20/23 10/04/23 Rx Ondansetron Odt [Zofran ODT] 4 mg PO Q6H PRN 03/09/23 10/04/23 History Gabapentin 800 mg PO DAILY PRN 08/02/23 10/04/23 History Imatinib Mesylate 200 mg PO PC-SUPPER 08/02/23 10/04/23 History Ferrous Sulfate [Feosol] 325 mg PO BID #60 tab 08/05/23 10/04/23 Rx Allergies Allergy/AdvReac Type Severity Reaction Status Date / Time metronidazole [From Flagyl] Allergy Itching, Verified 10/04/23 16:30 BURNING OF SKIN Physical Exam Vitals: Vital Signs Temp Pulse Pulse Resp BP BP Pulse Ox 10/05/23 08:40 74 90/59 10/05/23 07:28 97.9 F 70 16 89/49 97 10/05/23 01:12 98.1 F 78 16 101/65 97 10/04/23 22:20 98.0 F 77 16 112/70 10/04/23 21:44 98.5 F 77 16 110/75 99 10/04/23 21:32 77 16 10/04/23 20:53 98.1 F 76 16 98/64 100 10/04/23 20:33 76 16 106/72 100 10/04/23 20:20 98.7 F 80 16 106/66 99 10/04/23 15:29 98.0 F 82 20 118/77 100 Intake and Output 10/04/23 10/05/23 10/05/23 22:59 06:59 14:59 Intake Total 310 Balance 310 Intake: Blood Product 310 Rc Irr As1 Unit 310 [id number] Other: Voiding Method Toilet Toilet # Voids 2 1 Weight 45.359 kg PHYSICAL EXAM: VITAL SIGNS: [As above] GENERAL: Alert and oriented x 3, sitting up in bed, no acute distress HEENT: Normocephalic, atraumatic conjunctivae pink. eyes normal. Sclera anicteric NECK: Supple, no JVD. CARDIOVASCULAR: S1, S2 regular. No murmur RESPIRATION: Unlabored, equal air entry ,breath sounds diminished in the bases. ABDOMEN: Soft, nondistended, nontender . No guarding. No rigidity, positive bowel sounds LEGS: No edema. no swelling NERVOUS SYSTEM: Cranial N 2-12 grossly normal. Moves all 4 limbs. No focal deficits. Strength and sensation grossly intact. Skin: Warm and dry, no rash, no jaundice Results CBC & Chem 7: 10/04/23 16:05 10/04/23 16:05 Labs: Abnormal Lab Results - Last 24 Hours (Table) 10/04/23 10/04/2324 Range/Units 16:05 16:05 16:05 WBC 32.7 H (3.8-10.6) k/uL RBC 2.23 L (3.80-5.40) m/uL Hgb 6.4 L* D (11.4-16.0) gm/dL Hct 22.4 L (34.0-46.0) % MCV 100.2 H D (80.0-100.0) fL MCHC 28.4 L (31.0-37.0) g/dL RDW 28.4 H (11.5-15.5) % Plt Count 1600 H* (150-450) k/uL Neutrophils # (Manual) 24.10 H (1.3-7.7) k/uL Monocytes # (Manual) 1.31 H (0-1.0) k/uL Eosinophils # (Manual) 0.98 H (0-0.7) k/uL Basophils # (Manual) 0.65 H (0-0.2) k/uL Metamyelocytes # (Man) 1.96 H (0) k/uL Myelocytes # (Manual) 1.96 H (0) k/uL Nucleated RBCs 5 H (0-0) /100 WBC Macrocytosis Marked A D-Dimer 0.76 H (<0.60) mg/L FEU BUN 19 H (7-17) mg/dL AST 45 H (14-36) U/L Total Protein 6.2 L (6.3-8.2) g/dL Crossmatch 10/04/23 Range/Units 18:05 WBC (3.8-10.6) k/uL RBC (3.80-5.40) m/uL Hgb (11.4-16.0) gm/dL Hct (34.0-46.0) % MCV (80.0-100.0) fL MCHC (31.0-37.0) g/dL RDW (11.5-15.5) % Plt Count (150-450) k/uL Neutrophils # (Manual) (1.3-7.7) k/uL Monocytes # (Manual) (0-1.0) k/uL Eosinophils # (Manual) (0-0.7) k/uL Basophils # (Manual) (0-0.2) k/uL Metamyelocytes # (Man) (0) k/uL Myelocytes # (Manual) (0) k/uL Nucleated RBCs (0-0) /100 WBC Macrocytosis D-Dimer (<0.60) mg/L FEU BUN (7-17) mg/dL AST (14-36) U/L Total Protein (6.3-8.2) g/dL Crossmatch See Detail Thrombosis Risk Factor Assmnt - Choose All That Apply Any of the Below Risk Factors Present?: No Other Risk Factors: Yes Each Risk Factor Represents 2 Points: Age 61-74 years Other congenital or acquired thrombophilia - If yes, enter type in comment: No Thrombosis Risk Factor Assessment Total Risk Factor Score: 2 Thrombosis Risk Factor Assessment Level: Low Risk Assessment and Plan Assessment: Acute on chronic symptomatic anemia, related to CML. Status post multiple workups last year without evidence of GI bleed. Status posttransfusion 1 unit of packed RBCs CML, diagnosed December 2022 ,started treatments in February 2023 Acute on chronic thrombocytosis, related to the above Leukocytosis Chronic thoracic back pain and tenderness, prior MRI reported age-related degenerative changes throughout the thoracic spine with multilevel disc bulging most pronounced at T2-T3, central disc protrusion C6-C7 History of COPD, stable Hypertension GERD Rheumatoid arthritis History of anxiety/depression Continued ongoing nicotine dependence Moderate calorie protein malnutrition Plan: Continue on current medication regimen ,monitoring and symptomatic treatment. Maintain symptomatic, supportive care. Posttransfusion labs pending. Close monitoring of hemoglobin, platelets with repeat labs ordered for a.m. Hematology/oncology consult in place. GI prophylaxis in place. The impression and plan of care has been dictated as directed. : I performed a history and examination of this patient, discussed the same with the dictator. I agree with the dictator's note ,documented as a scribe. Any additional findings or plans will be noted.
[2023-10-05 13:22] LABS: Anisocytosis Marked; HCT 25.1 % (34.0-46.0); HGB 7.4 gm/dL (11.4-16.0); Hypochromasia Marked; MCH 28.9 pg (25.0-35.0); MCHC 29.5 g/dL (31.0-37.0); MCV 98.2 fL (80.0-100.0); Macrocytosis Marked; Mean Platelet Volume 8.4; Microcytosis Slight; Poikilocytosis Moderate; RBC 2.56 m/uL (3.80-5.40)
[2023-10-05 13:23] LABS: RDW 27.3 % (11.5-15.5)
[2023-10-05 13:25] LABS: Platelet Count 1446 k/uL (150-450)
[2023-10-05 15:03] LABS: Band Neutrophils % 1 %; Metamyelocytes % 5 %; Myelocytes % 1 %; Neutrophils % (M) 78 %; Nucleated Red Blood Cells 8 /100 WBC (0-0); Total Cells Counted 200
[2023-10-05 15:04] LABS: Eosinophils # (M) 0.52 k/uL (0-0.7); Lymphocytes # (M) 2.85 k/uL (1.0-4.8); Monocytes # (M) 0.52 k/uL (0-1.0); Myelocytes # (M) 0.26 k/uL (0); WBC 25.9 k/uL (3.8-10.6)
[2023-10-05 15:05] LABS: Large Platelets Present
[2023-10-05 15:06] LABS: Stomatocytes Present; Target Cells Present
[2023-10-05 15:13] VITALS: BMI 16.6
--- NOTE | 2023-10-05 17:18 | P.CONS ---
History of Present Illness - Reason for Consult Consult date: 10/05/23 CML, anemia Requesting physician: Camilo Torres - Chief Complaint anemia, SOB, weakness - History of Present Illness Ms. Pickard is a 63-year-old woman with a past medical history significant for CML currently on Gleevec presenting with concern for SOB, weakness and low hemoglobin. Of note patient was seen on consult in May and July 2023 with similar symptoms and concern for GI bleed. Had EGD on 06/11 which showed no active GI bleed. Over the past week, she has been having progressive weakness, orthostatic dizziness and SOB. She denies blood in stool and melena. Patient was seen in clinic on 10/01/23 for follow-up and was noted to have a hemoglobin of 7.9, WBC 35.9, plts 1621. Iron studies on 10/01/2023 in clinic showed iron saturation 31.5% and ferritin 161. Patient reports after her f/u her symptoms of SOB and weakness began to worsen which caused her to present to the ER for further evaluation. Patient has been on Gleevac for CML, but has been inconsi stent with medication, and frequently stops medication and decreases her doses on her own. Upon admission hemoglobin was noted at 6.4, WBC 30.0, platelets 1752. Patient was transfused 1 units PRBCs. Repeat hgb today 7.4, WBC 28.0, plt 1446. Bilirubin 0.8, AST mildly elevated at 45, ALT 26, ALP 54. Creatinine 0.91, GFR 68. Troponin negative. Patient reports improvement in symptoms today s/p blood transfusions. Reports having mild epigastric/ RUQ discomfort after eating with early satiety, but this has been ongoing issue. Denies diarrhea, nausea and vomiting. Last dose of Gleevec was 2 days ago. Review of Systems 10 point ROS is negative except as stated in the HPI Past Medical History Past Medical History: GERD/Reflux, Pneumonia, Rheumatoid Arthritis (RA) Additional Past Medical History / Comment(s): IP ADMISSION FORGASTRIC ULCER IN MAY 2022 WITH HIGH PLATELET & WHITE COUNT THROMBYTOSIS- (SEES DR REBOLLEDO). COPD, leukoplakia of the vocal cords, chronic shoulder back and neck pain, acid ref lux, depression, raynaud's syndrome. takes aldactone for hair loss. CML History of Any Multi-Drug Resistant Organisms: MRSA Year Discovered:: 05/03/19 MDRO Source:: MRSA FACE Past Surgical History: Back Surgery, Cholecystectomy, Hernia Repair, Orthopedic Surgery, Tonsillectomy Additional Past Surgical History / Comment(s): arthroscopic shoulder, vocal cord scraping, dariana fundoplasty, CERVICAL FUSSION, recent EGD, colonoscopy. VENTRAL HERNIA. Past Anesthesia/Blood Transfusion Reactions: Blood Transfusion Reaction Additional Past Anesthesia/Blood Transfusion Reaction / Comm: TRANSFUSIONS WITH GASTRIC ULCER, no previous reactions Past Psychological History: Anxiety, Depression Additional Psychological History / Comment(s): hx suicidal ideaation Smoking Status: Current every day smoker Past Alcohol Use History: None Reported Additional Past Alcohol Use History / Comment(s): smoked <ppd since age of 20. started smoking again recently, says 1 pack will last her 3days. Past Drug Use History: None Reported - Past Family History Mother History Unknown: Yes Family Medical History: Cancer Father Family Medical History: Unable to Obtain Medications and Allergies Home Medications Medication Instructions Recorded Confirmed Type Gabapentin 800 mg PO TID 05/01/14 10/04/23 History Topiramate 100 mg PO BID 05/01/14 10/04/23 History HYDROcodone/APAP 7.5-325MG [[place] 1 tab PO QID 03/11/16 10/04/23 History 7.5-325] Baclofen [Lioresal] 20 mg PO HS 07/02/17 10/04/23 History Sertraline [Zoloft] 50 mg PO DAILY 07/02/17 10/04/23 History buPROPion XL [Wellbutrin XL] 300 mg PO DAILY 07/02/17 10/04/23 History Multivit with Calcium,Iron,Min 1 tab PO DAILY 10/21/19 10/04/23 History [Women's Multivitamin] Spironolactone [Aldactone] 25 mg PO DAILY 12/21/21 10/04/23 History Aspirin [Adult Low Dose Aspirin EC] 81 mg PO Q48H 06/07/22 10/04/23 History Omeprazole [PriLOSEC] 20 mg PO AC-BRKFST #90 cap 06/09/22 10/04/23 Rx Clindamycin Phosphate 1 applic TOPICAL BID 01/16/23 10/04/23 History Tretinoin [Tretinoin 0.025%] 1 applic TOPICAL HS 01/16/23 10/04/23 History Lactulose [Cephulac] 30 gm PO BID PRN #600 ml 01/20/23 10/04/23 Rx Ondansetron Odt [Zofran ODT] 4 mg PO Q6H PRN 03/09/23 10/04/23 History Gabapentin 800 mg PO DAILY PRN 08/02/23 10/04/23 History Imatinib Mesylate 200 mg PO PC-SUPPER 08/02/23 10/04/23 History Ferrous Sulfate [Feosol] 325 mg PO BID #60 tab 08/05/23 10/04/23 Rx Allergies Allergy/AdvReac Type Severity Reaction Status Date / Time metronidazole [From Flagyl] Allergy Itching, Verified 10/04/23 16:30 BURNING OF SKIN Physical Exam Vitals: Vital Signs Temp Pulse Pulse Resp BP BP Pulse Ox 10/05/23 08:40 74 90/59 10/05/23 07:28 97.9 F 70 16 89/49 97 10/05/23 01:12 98.1 F 78 16 101/65 97 10/04/23 22:20 98.0 F 77 16 112/70 10/04/23 21:44 98.5 F 77 16 110/75 99 10/04/23 21:32 77 16 10/04/23 20:53 98.1 F 76 16 98/64 100 10/04/23 20:33 76 16 106/72 100 10/04/23 20:20 98.7 F 80 16 106/66 99 10/04/23 15:29 98.0 F 82 20 118/77 100 Intake and Output 10/04/23 10/05/23 10/05/23 22:59 06:59 14:59 Intake Total 310 Balance 310 Intake: Blood Product 310 Rc Irr As1 Unit 310 [id number] Other: Voiding Method Toilet Toilet # Voids 2 1 Weight 45.359 kg - Constitutional General appearance: no acute distress - EENT Eyes: anicteric sclerae, EOMI ENT: hearing grossly normal - Respiratory Respiratory: bilateral: CTA - Cardiovascular Rhythm: regular Heart sounds: normal: S1, S2 - Gastrointestinal General gastrointestinal: soft, no tenderness - Integumentary Integumentary: no cyanotic, no jaundiced, pale - Neurologic Neurologic: CNII-XII intact - Musculoskeletal Musculoskeletal: strength equal bilaterally - Psychiatric Psychiatric: A&O x's 3 Results CBC & Chem 7: 10/05/23 12:40 10/04/23 16:05 Labs: Abnormal Lab Results - Last 24 Hours (Table) 10/04/23 10/04/23 10/04/23 Range/Units 16:05 16:05 16:05 WBC 32.7 H (3.8-10.6) k/uL RBC 2.23 L (3.80-5.40) m/uL Hgb 6.4 L* D (11.4-16.0) gm/dL Hct 22.4 L (34.0-46.0) % MCV 100.2 H D (80.0-100.0) fL MCHC 28.4 L (31.0-37.0) g/dL RDW 28.4 H (11.5-15.5) % Plt Count 1600 H* (150-450) k/uL Neutrophils # (Manual) 24.10 H (1.3-7.7) k/uL Monocytes # (Manual) 1.31 H (0-1.0) k/uL Eosinophils # (Manual) 0.98 H (0-0.7) k/uL Basophils # (Manual) 0.65 H (0-0.2) k/uL Metamyelocytes # (Man) 1.96 H (0) k/uL Myelocytes # (Manual) 1.96 H (0) k/uL Nucleated RBCs 5 H (0-0) /100 WBC Macrocytosis Marked A D-Dimer 0.76 H (<0.60) mg/L FEU BUN 19 H (7-17) mg/dL AST 45 H (14-36) U/L Total Protein 6.2 L (6.3-8.2) g/dL Crossmatch 10/04/23 Range/Units 18:05 WBC (3.8-10.6) k/uL RBC (3.80-5.40) m/uL Hgb (11.4-16.0) gm/dL Hct (34.0-46.0) % MCV (80.0-100.0) fL MCHC (31.0-37.0) g/dL RDW (11.5-15.5) % Plt Count (150-450) k/uL Neutrophils # (Manual) (1.3-7.7) k/uL Monocytes # (Manual) (0-1.0) k/uL Eosinophils # (Manual) (0-0.7) k/uL Basophils # (Manual) (0-0.2) k/uL Metamyelocytes # (Man) (0) k/uL Myelocytes # (Manual) (0) k/uL Nucleated RBCs (0-0) /100 WBC Macrocytosis D-Dimer (<0.60) mg/L FEU BUN (7-17) mg/dL AST (14-36) U/L Total Protein (6.3-8.2) g/dL Crossmatch See Detail Chest x-ray: report reviewed Assessment and Plan (1) Symptomatic anemia Current Visit: Yes Status: Acute Priority: High Code(s): D64.9 - ANEMIA, UNSPECIFIED SNOMED Code(s): 023537016 (2) Chronic myeloid leukemia (CML), BCR/ABL-positive Current Visit: No Status: Chronic Priority: Medium Code(s): C92.10 - CHRONIC MYELOID LEUK, BCR/ABL-POSITIVE, NOT ACHIEVE REMIS SNOMED Code(s): 90888178 Plan: Anemia -Multifactorial including chronic from CML, and anemia of inflammation. Iron studies in clinic on 10/01/23 consistent with anemia of inflammation -Hgb on admit 6.4 , s/p 1 unit PRBCs with appropriate increase in Hgb. Hgb today 7.4, with improvement in symptoms -Hx of hemorrhagic gastritis. Repeat EGD on 06/11 neg for acute findings or bleeding. Denies ariane blood in stool and melena. Recommend continued f/u with GI for routine endoscopic evaluation -Continue to monitor CBC, please transfuse for hgb less than 7 or if symptomatic Thrombocytosis, leukocytosis, acute on chronic - Started treatment of CML in Feb 2023 and had shown improvements in plt and white counts, however she has been inconsistent with regimen and counts have continued to flucuate - It is not clear if the persistent elevation of WBC and platelets is due to loss of effectiveness of the Gleevec vs non-compliance with regimen, and/or acute on chronic blood loss and/or inflammation from RA CML -Diagnosed December 2022 -Initiated Gleevec 03/14/2023 with initial progressive decrease in leukocytosis and thrombocytosis. However, pt has been non-compliant with regimen and will stop and dose decrease medication on her own -Planned outpt echo and to further discuss changing regimen to [place]. Will obtain Echo while inpt -Currently prescribed Gleevec 400 mg, alternating with 200 mg every other day, however pt has stated the increased dose at 400mg caused too many symptoms and has only been taking 200mg daily, but did not take yesterday dose. Will hold medication while inpt -Will plan for clinic f/u upon discharge attests: I have performed H&P and developed impression and plan of care for patient, discussed with dictator. I agree with dictated note, documented as a scribe
[2023-10-05] MEDS: IMATINIB MESYLATE 100 MG PO SCH (17:37)
[2023-10-05] MEDS: TRETINOIN TOPICAL SCH (22:27)
[2023-10-06 06:28] LABS: Anisocytosis Marked; Basophils # (A) 1.2 k/uL (0-0.2); Basophils % (A) 5 %; Eosinophils % (A) 4 %; HCT 23.6 % (34.0-46.0); Hypochromasia Marked; Lymphocytes # (A) 3.3 k/uL (1.0-4.8); Lymphocytes % (A) 14 %; MCH 29.9 pg (25.0-35.0); MCHC 29.7 g/dL (31.0-37.0); Macrocytosis Marked; Mean Platelet Volume 8.6; Monocytes # (A) 0.8 k/uL (0-1.0); Monocytes % (A) 3 %; Neutrophils # (A) 17.8 k/uL (1.3-7.7); Neutrophils % (A) 75 %; Poikilocytosis Moderate; RBC 2.34 m/uL (3.80-5.40)
[2023-10-06 06:35] LABS: Platelet Count 1296 k/uL (150-450); RDW 27.6 % (11.5-15.5)
[2023-10-06 06:36] LABS: MCV 100.8 fL (80.0-100.0)
[2023-10-06 06:55] LABS: Band Neutrophils % 17 %; Eosinophils # (M) 0.43 k/uL (0-0.7); Lymphocytes # (M) 1.28 k/uL (1.0-4.8); Metamyelocytes # (M) 3.42 k/uL (0); Metamyelocytes % 16 %; Monocytes # (M) 0.43 k/uL (0-1.0); Myelocytes # (M) 1.28 k/uL (0); Myelocytes % 6 %; Neutrophils % (M) 51 %; Nucleated Red Blood Cells 11 /100 WBC (0-0); Total Cells Counted 200; WBC 21.4 k/uL (3.8-10.6)
[2023-10-06 06:56] LABS: Anisocytosis (M) Present; Hypochromasia (M) Present; Ovalocytes Present; Poikilocytosis (M) Present; Polychromasia Present; RBC Fragments Present; Tear Drop Cells Present
[2023-10-06 06:57] LABS: Basophilic Stippling Present
[2023-10-06] MEDS: ASPIRIN 81 MG PO SCH (10:15)
[2023-10-06] MEDS: GABAPENTIN 400 MG CAP PO PRN (10:17)
--- NOTE | 2023-10-06 15:05 | CA ---
Transthoracic Echo Report Name: Kat Pickard Age: 63 Gender: F : 1960 Exam Date: 10/06/2023 13:27 Exam Location: [facility] Ht (in): 65 Wt (lb): 100 Ordering Physician: Bashir Morel Attending/Referring Phys: Engineering Psychologist Isabela Ramos RDCS Procedure CPT: Indications: hx CML, baseline for chemo Cardiac Hx: Technical Quality: Fair Contrast 1: Total Dose (mL): Contrast 2: Total Dose (mL): MEASUREMENTS (Male / Female) Normal Values 2D ECHO LV Diastolic Diameter PLAX 4.7 cm 4.2 - 5.9 / 3.9 - 5.3 cm LV Systolic Diameter PLAX 3.2 cm IVS Diastolic Thickness 0.9 cm 0.6 - 1.0 / 0.6 - 0.9 cm LVPW Diastolic Thickness 1.2 cm 0.6 - 1.0 / 0.6 - 0.9 cm LV Relative Wall Thickness 0.4 RV Internal Dim ED PLAX 2.9 cm LV Diastolic Volume MOD BP 119.0 cm??? 67 - 155 / 56 - 104 cm??? LV Systolic Volume MOD BP 64.1 cm??? 22 - 58 / 19 - 49 cm??? LV Ejection Fraction MOD BP 46.1 % >= 55 % LV Cardiac Index MOD BP 2535.5 cm???/min???m??? LV Diastolic Volume MOD 4C 107.3 cm??? LV Systolic Volume MOD 4C 64.2 cm??? LV Ejection Fraction MOD 4C 40.2 % LV Cardiac Index MOD 4C 1990.9 cm???/min???m??? LV Diastolic Length 4C 7.4 cm LV Systolic Length 4C 6.2 cm LV Diastolic Volume MOD 2C 120.5 cm??? LV Systolic Volume MOD 2C 63.8 cm??? LV Ejection Fraction MOD 2C 47.1 % LV Cardiac Index MOD 2C 2621.4 cm???/min???m??? LV Diastolic Length 2C 6.7 cm LV Systolic Length 2C 6.1 cm LA Volume 67.5 cm??? 18 - 58 / 22 - 52 cm??? LA Volume Index 47.2 cm???/m??? 16 - 28 cm???/m??? M-MODE Aortic Root Diameter MM 2.9 cm LA Systolic Diameter MM 2.4 cm LA Ao Ratio MM 0.8 AV Cusp Separation MM 1.9 cm DOPPLER AV Peak Velocity 136.7 cm/s AV Peak Gradient 7.5 mmHg AV Mean Velocity 103.7 cm/s AV Mean Gradient 4.5 mmHg AV Velocity Time Integral 30.4 cm LVOT Peak Velocity 83.7 cm/s LVOT Peak Gradient 2.8 mmHg LVOT Velocity Time Integral 15.4 cm MV Area PHT 4.9 cm??? Mitral E Point Velocity 65.5 cm/s Mitral A Point Velocity 44.9 cm/s Mitral E to A Ratio 1.5 MV Deceleration Time 153.5 ms MV E' Velocity 9.7 cm/s Mitral E to MV E' Ratio 6.8 TR Peak Velocity 183.0 cm/s TR Peak Gradient 13.4 mmHg Right Atrial Pressure 20.0 mmHg Pulmonary Artery Systolic Pressu 33.4 mmHg Right Ventricular Systolic Press 33.4 mmHg FINDINGS Left Ventricle Mildly increased posterior wall thickness. Moderately increased left ventricular diastolic volume. Moderately increased left ventricular systolic volume. Mildly decreased left ventricular ejection fraction. Left ventricular ejection fraction is estimated at 40-45 %. Grade 1 diastolic dysfunction. Abnormal LV strain noted. Right Ventricle Normal right ventricular size and function. Right ventricular systolic pressure within normal limits. Right Atrium Normal right atrial size. Left Atrium Moderately increased left atrial volume. Interatrial septal aneurysm. Mitral Valve Structurally normal mitral valve. No mitral stenosis. Mild mitral regurgitation. Aortic Valve Trileaflet aortic valve. No aortic valve stenosis or regurgitation. Tricuspid Valve Structurally normal tricuspid valve. Mild tricuspid regurgitation. Pulmonic Valve Structurally normal pulmonic valve. Trace pulmonic regurgitation. Pericardium No pericardial effusion. Aorta Normal size aortic root and proximal ascending aorta. CONCLUSIONS Impaired LV systolic function was EF between 40-45% Previewed by: Dr. Chester Santana MD (Electronically Signed) Final Date: 06 October 2023 15:04
[2023-10-07 03:37] VITALS: RESP 16
[2023-10-07 07:37] LABS: Anisocytosis Marked; HCT 26.4 % (34.0-46.0); HGB 7.6 gm/dL (11.4-16.0); Hypochromasia Marked; MCH 29.2 pg (25.0-35.0); MCHC 28.9 g/dL (31.0-37.0); MCV 101.3 fL (80.0-100.0); Macrocytosis Marked; Mean Platelet Volume 7.8; Poikilocytosis Moderate
[2023-10-07 07:39] LABS: RDW 27.8 % (11.5-15.5)
[2023-10-07 07:40] LABS: Platelet Count 1411 k/uL (150-450)
[2023-10-07 07:45] VITALS: TEMP 98.1
[2023-10-07 09:31] VITALS: BP 124/61; PULSE 71
[2023-10-07 10:24] LABS: Band Neutrophils % 6 %; Metamyelocytes % 2 %; Myelocytes % 4 %; Neutrophils % (M) 71 %; Nucleated Red Blood Cells 5 /100 WBC (0-0); Total Cells Counted 200
[2023-10-07 10:25] LABS: Basophils # (M) 0.51 k/uL (0-0.2); Eosinophils # (M) 1.02 k/uL (0-0.7); Lymphocytes # (M) 2.04 k/uL (1.0-4.8); Metamyelocytes # (M) 0.51 k/uL (0); Monocytes # (M) 1.28 k/uL (0-1.0); Myelocytes # (M) 1.02 k/uL (0); WBC 25.5 k/uL (3.8-10.6)
[2023-10-07 10:28] LABS: Polychromasia Present
[2023-10-07 10:29] LABS: Large Platelets Present
[2023-10-07 10:30] LABS: RBC Fragments Present; Target Cells Present
[2023-10-07 10:31] LABS: Basophilic Stippling Present
--- NOTE | 2023-10-09 08:50 | P.PN ---
Subjective Progress Note Date: 10/06/23 Is a 63-year-old female with past medical history significant for CML, multiple workups within the last year for anemia, follows regularly with Dr. Dawkins, presented to the ER with progressive symptomatic anemia, weakness, exertional dyspnea, fatigue. Reports she recently was at Dr. Dawkins's office on Sunday with a hemoglobin level reported at 7.9. Denies anticoagulation use. denies any nausea, vomiting, abdominal pain.denies any bleeding, no blood in stools no black stools no hematochezia, melena or hematemesis. Denies syncope. Denies chest pain or palpitations. Troponin negative x 1. EKG reported sinus rhythm. on admission hemoglobin 6.4 noted with leukocytosis and thrombocytosis in a patient with CML; WBC 32.7 ,platelets 1600, INR 1, electrolytes within normal limits, renal function stable. T. bili 0.8, AST 45, ALT 26, alk phos 54. proBNP 286 1 unit packed RBCs transfused, repeat hemoglobin pending. Chest x- ray reported no acute cardiopulmonary disease, COPD, no interval change. 10/06/2023 Patient was evaluated in follow up today on the medical floor. Having headache which she takes gabapentin as needed for at home as well as norco, she would like to try that first before additional medication has been added. She was given vistaril to sleep by her PCP and felt this may have caused some of the headache. She is not having any more shortness of breath. Hemoglobin is 7.0 today. Oncology would like to monitor one more night before patient can be discharged. Review of Systems Constitutional: Denied any fatigue denied any fever. Cardio vascular: denied any chest pain, palpitations Gastrointestinal: denied any nausea, vomiting, diarrhea Pulmonary: Denied any shortness of breath cough Neurologic denied any new focal deficits All inpatient medications were reviewed and appropriate changes in these medications as dictated in the interval history and assessment and plan. PHYSICAL EXAMINATION: GENERAL: The patient is alert and oriented x3, not in any acute distress. Well developed, well nourished. HEENT: Pupils are round and equally reacting to light. EOMI. No scleral icterus. No conjunctival pallor. Normocephalic, atraumatic. No pharyngeal erythema. No thyromegaly. CARDIOVASCULAR: S1 and S2 present. No murmurs, rubs, or gallops. PULMONARY: Chest is clear to auscultation, no wheezing or crackles. ABDOMEN: Soft, nontender, nondistended, normoactive bowel sounds. No palpable organomegaly. MUSCULOSKELETAL: No joint swelling or deformity. EXTREMITIES: No cyanosis, clubbing, or pedal edema. NEUROLOGICAL: Gross neurological examination did not reveal any focal deficits. SKIN: No rashes. Assessment and Plan Acute on chronic symptomatic anemia, related to CML. Status post multiple workups last year without evidence of GI bleed. Status posttransfusion 1 unit of packed RBCs. Hemoglobin 7.0. CML, diagnosed December 2022 ,started treatments in February 2023 Acute on chronic thrombocytosis, related to the above Leukocytosis Chronic thoracic back pain and tenderness, prior MRI reported age-related degenerative changes throughout the thoracic spine with multilevel disc bulging most pronounced at T2-T3, central disc protrusion C6-C7 History of COPD, stable Hypertension GERD Rheumatoid arthritis History of anxiety/depression Continued ongoing nicotine dependence Moderate calorie protein malnutrition GI prophylaxis Plan Monitor patient overnight and repeat CBC tomorrow Increase PPI up to twice a day and advised to follow up with Dr. Alexis may need upper endoscopy on an outpatient basis Continue pain management prn gabapentin and add additional medications if migraine not improving. Pending echocardiogram. The impression and plan of care has been dictated by Lucía Noel Nurse Practitioner as directed. Dr. Scar MD I have performed a history and physical examination and medical decision making of this patient, discussed the same with the dictator, and agree with the dictators assessment and plan as written, documented as a scribe. Based on total visit time, I have performed more than 50% of this visit. Objective - Vital Signs Vital signs: Vital Signs Temp 98.1 F 10/07/23 07:34 Pulse 71 10/07/23 09:28 Resp 16 10/07/23 07:34 BP 124/61 10/07/23 09:28 Pulse Ox 97 10/07/23 08:40 FiO2 - Labs CBC & Chem 7: 10/07/23 06:50 10/04/23 16:05 Assessment and Plan Time with Patient: Less than 30
--- NOTE | 2023-10-09 08:57 | P.DS ---
Providers Date of admission: 10/05/23 14:09 Attending physician: Bashir Jefferson MD Consults: 10/04/23 17:30 Consult Physician Routine Consulting Provider: Alexandro Dawkins Consult Reason/Comments: CML patient with anemia and thrombocytosis Do you want consulting provider notified?: Yes Primary care physician: Katja Jefferson Hospital Course: Final Diagnosis Acute on chronic symptomatic anemia, related to CML. Status post multiple workups last year without evidence of GI bleed. Status posttransfusion 1 unit of packed RBCs. Hemoglobin 7.0. CML, diagnosed December 2022 ,started treatments in February 2023 Acute on chronic thrombocytosis, related to the above Leukocytosis Chronic thoracic back pain and tenderness, prior MRI reported age-related degenerative changes throughout the thoracic spine with multilevel disc bulging most pronounced at T2-T3, central disc protrusion C6-C7 History of COPD, stable Epigastric pain likely gastritis recommended to increase PPI to BID Hypertension GERD Rheumatoid arthritis History of anxiety/depression Continued ongoing nicotine dependence Moderate calorie protein malnutrition GI prophylaxis Discharge Disposition Patient is stable for discharge home overall guarded prognosis does require close follow up with her PCP. Patient also to follow up with her oncologist Dr Dawkins in the office. Patient advised to establish care with a jewelry polisher and further work up for the findings of the echocardiogram although patient reports she has a known EF of 40-45% this is not new. Increase PPI up to twice a day and advised to follow up with Dr. Alexis may need upper endoscopy on an outpatient basis. Repeat blood work in 2 to 3 days. Hospital Course Patient is a 63-year-old female with past medical history significant for CML, multiple workups within the last year for anemia, follows regularly with Dr. Dawkins, presented to the ER with progressive symptomatic anemia, weakness, exertional dyspnea, fatigue. Reports she recently was at Dr. Dawkins's office on Sunday with a hemoglobin level reported at 7.9. Denies anticoagulation use. denies any nausea, vomiting, abdominal pain.denies any bleeding, no blood in stools no black stools no hematochezia, melena or hematemesis. Denies syncope. Denies chest pain or palpitations. Troponin negative x 1. EKG reported sinus rhythm. on admission hemoglobin 6.4 noted with leukocytosis and thrombocytosis in a patient with CML; WBC 32.7 ,platelets 1600, INR 1, electrolytes within normal limits, renal function stable. T. bili 0.8, AST 45, ALT 26, alk phos 54. proBNP 286 1 unit packed RBCs transfused, repeat hemoglobin pending. Chest x- ray reported no acute cardiopulmonary disease, COPD, no interval change. Patient was admitted with oncology consultation. They are considering changing her chemotherapy. An echocardiogram was ordered which reveals an EF of 40-45% and grade 1 diastolic dysfunction. After further discussion with the patient she has not seen a jewelry polisher before and she had an echo done at her PCPs office 2 years ago and states they found the EF of 40% this is not new. Did recommend patient to see a jewelry polisher on an outpatient basis may need further work up, she states her PCP told her she had cardiomyopathy. She is maintained on aldactone. Patient was monitored overnight as her repeat hemoglobin was 7.0 and now is up to 7.6 and she would like to discharge home. She does endorse some mild epigastric discomfort and this is likely gastritis she does see Dr. Alexis and advised she may need an endoscopy on an outpatient basis patient is agreeable to this plan and will follow up. She is not having any chest pain, no shortness of breath. She is alert x 3. Her lungs are clear. Hemodynamically she is stable and will be discharged. Please see medication reconciliation for a list of current medications. Thank you for allowing us to participate in the care of this patient. The impression and plan of care has been dictated by Lucía Noel, Nurse Practitioner as directed. Dr. Scar MD I have performed a history and physical examination and medical decision making of this patient, discussed the same with the dictator, and agree with the dictators assessment and plan as written, documented as a scribe. Based on total visit time, I have performed more than 50% of this visit. Patient Condition at Discharge: Fair Plan - Discharge Summary Discharge Rx Participant: No New Discharge Prescriptions: New Famotidine [Pepcid] 20 mg PO HS #30 tab Albuterol Inhaler [Ventolin Hfa Inhaler] 1 puff INHALATION Q6H PRN #1 each PRN Reason: Shortness Of Breath Or Wheezing hydrOXYzine pamoate [Vistaril] 25 mg PO BID PRN #4 cap PRN Reason: Anxiety Continue Topiramate 100 mg PO BID Gabapentin 800 mg PO TID HYDROcodone/APAP 7.5-325MG [Bartlett 7.5-325] 1 tab PO QID Baclofen [Lioresal] 20 mg PO HS buPROPion XL [Wellbutrin XL] 300 mg PO DAILY Sertraline [Zoloft] 50 mg PO DAILY Multivit with Calcium,Iron,Min [Women's Multivitamin] 1 tab PO DAILY Aspirin [Adult Low Dose Aspirin EC] 81 mg PO Q48H Omeprazole [PriLOSEC] 20 mg PO AC-BRKFST #90 cap Clindamycin Phosphate 1 applic TOPICAL BID Tretinoin [Tretinoin 0.025%] 1 applic TOPICAL HS Lactulose [Cephulac] 30 gm PO BID PRN #600 ml PRN Reason: Constipation Gabapentin 800 mg PO DAILY PRN PRN Reason: Pain Imatinib Mesylate 200 mg PO PC-SUPPER Spironolactone [Aldactone] 25 mg PO DAILY Ondansetron Odt [Zofran ODT] 4 mg PO Q6H PRN PRN Reason: Nausea Ferrous Sulfate [Feosol] 325 mg PO BID #60 tab Discharge Medication List Gabapentin 800 mg PO TID 05/01/14 [History] Topiramate 100 mg PO BID 05/01/14 [History] HYDROcodone/APAP 7.5-325MG [Bartlett 7.5-325] 1 tab PO QID 03/11/16 [History] Baclofen [Lioresal] 20 mg PO HS 07/02/17 [History] Sertraline [Zoloft] 50 mg PO DAILY 07/02/17 [History] buPROPion XL [Wellbutrin XL] 300 mg PO DAILY 07/02/17 [History] Multivit with Calcium,Iron,Min [Women's Multivitamin] 1 tab PO DAILY 10/21/19 [History] Spironolactone [Aldactone] 25 mg PO DAILY 12/21/21 [History] Aspirin [Adult Low Dose Aspirin EC] 81 mg PO Q48H 06/07/22 [History] Omeprazole [PriLOSEC] 20 mg PO AC-BRKFST #90 cap 06/09/22 [Rx] Clindamycin Phosphate 1 applic TOPICAL BID 01/16/23 [History] Tretinoin [Tretinoin 0.025%] 1 applic TOPICAL HS 01/16/23 [History] Lactulose [Cephulac] 30 gm PO BID PRN #600 ml 01/20/23 [Rx] Ondansetron Odt [Zofran ODT] 4 mg PO Q6H PRN 03/09/23 [History] Gabapentin 800 mg PO DAILY PRN 08/02/23 [History] Imatinib Mesylate 200 mg PO PC-SUPPER 08/02/23 [History] Ferrous Sulfate [Feosol] 325 mg PO BID #60 tab 08/05/23 [Rx] Albuterol Inhaler [Ventolin Hfa Inhaler] 1 puff INHALATION Q6H PRN #1 each 10/06/23 [Rx] Famotidine [Pepcid] 20 mg PO HS #30 tab 10/06/23 [Rx] hydrOXYzine pamoate [Vistaril] 25 mg PO BID PRN #4 cap 10/06/23 [Rx] Follow up Appointment(s)/Referral(s): Alexandro Dawkins [STAFF PHYSICIAN] - 1 Week Chester Santana MD [STAFF PHYSICIAN] - 1 Week (cardiology ) Tea Llanes PAC [REFERRING] - 1-2 days Latrell Alexis MD [STAFF PHYSICIAN] - 1 Week Ambulatory/Diagnostic Orders: Basic Metabolic Panel [LAB.AMB] Location: None Selected Complete Blood Count w/diff [LAB.AMB] Time Frame: 3 Days, Location: None Selected Patient Instructions/Handouts: Anemia (DC) Discharge Disposition: HOME SELF-CARE
== END 2023-10-07 12:17 | disposition home or self-care (01) | DRG 812 ==
LOC: EC 15:25 → 5NMEDONC 17:31 → OBSVTOIN 10-05 14:09
PROVIDERS: ADMIT Family Medicine; ATTEND Family Medicine
PROC: 30233N1 Transfusion of Nonautologous Red Blood Cells into Peripheral Vein, Percutaneous Approach (ICD-10-PCS; principal; 2023-10-04)
DX: D62 Acute posthemorrhagic anemia (principal); C92.10 Chronic myeloid leukemia, BCR/ABL-positive, not having achieved remission; E44.0 Moderate protein-calorie malnutrition; Z68.1 Body mass index [BMI] 19.9 or less, adult; I42.9 Cardiomyopathy, unspecified; D75.839 Thrombocytosis, unspecified; F17.210 Nicotine dependence, cigarettes, uncomplicated; T45.1X6A Underdosing of antineoplastic and immunosuppressive drugs, initial encounter; F32.A Depression, unspecified; R68.81 Early satiety; F41.9 Anxiety disorder, unspecified; I10 Essential (primary) hypertension; I73.00 Raynaud's syndrome without gangrene; M51.34 Other intervertebral disc degeneration, thoracic region; M25.519 Pain in unspecified shoulder; J44.9 Chronic obstructive pulmonary disease, unspecified; K21.9 Gastro-esophageal reflux disease without esophagitis; K29.70 Gastritis, unspecified, without bleeding; M06.9 Rheumatoid arthritis, unspecified; M50.223 Other cervical disc displacement at C6-C7 level; Z79.82 Long term (current) use of aspirin; Z79.899 Other long term (current) drug therapy; Z87.11 Personal history of peptic ulcer disease; Z87.01 Personal history of pneumonia (recurrent); Z91.128 Patient's intentional underdosing of medication regimen for other reason; Z86.14 Personal history of Methicillin resistant Staphylococcus aureus infection; Z88.8 Allergy status to other drugs, medicaments and biological substances
CPT/HCPCS: 36415; 36430; 71046; 80053; 83605; 83880; 84484; 85025; 85379; 85610; 85730; 86850; 86900; 86901; 86920; 93005; 93306; 94760; 96361; 96374; 99285

== ENCOUNTER 2023-11-04 17:28 | Inpatient (IN) | payer MEDICARE, OTHER ==
--- NOTE | 2023-11-04 17:54 | ED ---
Weakness HPI <Shelbie Weston - Last Filed: 11/04/23 17:51> <Samira Abdi - Last Filed: 11/05/23 00:50> - General Stated complaint: Weakness Time Seen by Provider: 11/04/23 17:51 - History of Present Illness Initial comments: Quick [id number] female with history of chronic myeloid leukemia presenting to the ER with chief complaint of generalized weakness. She is concerned that her hemoglobin may be low. She states she has had the symptoms in the past and needed blood transfusions. (Shelbie Weston) 63-year-old female presenting with chief complaint of weakness. Patient has history of CML and severe anemia. She has required transfusions in the past and feels similar to those episodes. She admits to dyspnea. Denies chest pain. She does state that at times she feels like her heart is beating very hard and fast. She is also experiencing some lower back pain. No new injury or trauma. No loss of bowel or bladder control or saddle paresthesia. No urinary symptoms. Some nausea, no vomiting. No abdominal pain. (Samira Abdi) - Related Data Home Medications Medication Instructions Recorded Confirmed Gabapentin 800 mg PO TID 05/01/14 10/04/23 Topiramate 100 mg PO BID 05/01/14 10/04/23 HYDROcodone/APAP 7.5-325MG [[place] 1 tab PO QID 03/11/16 10/04/23 7.5-325] Baclofen [Lioresal] 20 mg PO HS 07/02/17 10/04/23 Sertraline [Zoloft] 50 mg PO DAILY 07/02/17 10/04/23 buPROPion XL [Wellbutrin XL] 300 mg PO DAILY 07/02/17 10/04/23 Multivit with Calcium,Iron,Min 1 tab PO DAILY 10/21/19 10/04/23 [Women's Multivitamin] Spironolactone [Aldactone] 25 mg PO DAILY 12/21/21 10/04/23 Aspirin [Adult Low Dose Aspirin EC] 81 mg PO Q48H 06/07/22 10/04/23 Clindamycin Phosphate 1 applic TOPICAL BID 01/16/23 10/04/23 Tretinoin [Tretinoin 0.025%] 1 applic TOPICAL HS 01/16/23 10/04/23 Ondansetron Odt [Zofran ODT] 4 mg PO Q6H PRN 03/09/23 10/04/23 Gabapentin 800 mg PO DAILY PRN 08/02/23 10/04/23 Imatinib Mesylate 200 mg PO PC-SUPPER 08/02/23 10/04/23 Previous Rx's Medication Instructions Recorded Omeprazole [PriLOSEC] 20 mg PO AC-BRKFST #90 cap 06/09/22 Lactulose [Cephulac] 30 gm PO BID PRN #600 ml 01/20/23 Ferrous Sulfate [Feosol] 325 mg PO BID #60 tab 08/05/23 Albuterol Inhaler [Ventolin Hfa 1 puff INHALATION Q6H PRN #1 each 10/06/23 Inhaler] Famotidine [Pepcid] 20 mg PO HS #30 tab 10/06/23 hydrOXYzine pamoate [Vistaril] 25 mg PO BID PRN #4 cap 10/06/23 Allergies Allergy/AdvReac Type Severity Reaction Status Date / Time metronidazole [From Flagyl] Allergy Itching, Verified 11/04/23 18:15 BURNING OF SKIN Review of Systems ROS Other: All systems not noted in ROS Statement are negative. <Shelbie Weston - Last Filed: 11/04/23 17:51> ROS Other: All systems not noted in ROS Statement are negative. <Samira Abdi - Last Filed: 11/05/23 00:50> ROS Statement: Those systems with pertinent positive or pertinent negative responses have been documented in the HPI. Past Medical History Past Medical History: GERD/Reflux, Pneumonia, Rheumatoid Arthritis (RA) Additional Past Medical History / Comment(s): IP ADMISSION FORGASTRIC ULCER IN MAY 2022 WITH HIGH PLATELET & WHITE COUNT THROMBYTOSIS- (SEES DR REBOLLEDO). COPD, leukoplakia of the vocal cords, chronic shoulder back and neck pain, acid reflux, depression, raynaud's syndrome. takes aldactone for hair loss. CML History of Any Multi-Drug Resistant Organisms: MRSA Date of last positivie culture/infection: 05/03/19 MDRO Source:: MRSA FACE Past Surgical History: Back Surgery, Cholecystectomy, Hernia Repair, Orthopedic Surgery, Tonsillectomy Additional Past Surgical History / Comment(s): arthroscopic shoulder, vocal cord scraping, dariana fundoplasty, CERVICAL FUSSION, recent EGD, colonoscopy. VENTRAL HERNIA. Past Anesthesia/Blood Transfusion Reactions: Blood Transfusion Reaction Additional Past Anesthesia/Blood Transfusion Reaction / Comment(s): TRANSFUSIONS WITH GASTRIC ULCER, no previous reactions Past Psychological History: Anxiety, Depression Smoking Status: Current every day smoker Past Alcohol Use History: None Reported Past Drug Use History: None Reported - Past Family History Mother History Unknown: Yes Family Medical History: Cancer Father Family Medical History: Unable to Obtain <Shelbie Weston - Last Filed: 11/04/23 17:51> General Exam <WestonShelbie - Last Filed: 11/04/23 17:51> Limitations: no limitations General appearance: alert, in no apparent distress Head exam: Present: atraumatic, normocephalic Eye exam: Present: normal appearance, EOMI Neck exam: Present: normal inspection. Absent: meningismus Respiratory exam: Present: normal lung sounds bilaterally. Absent: respiratory distress, wheezes, rales, rhonchi, stridor Cardiovascular Exam: Present: regular rate, normal rhythm, normal heart sounds. Absent: systolic murmur, diastolic murmur, rubs, gallop, clicks Neurological exam: Present: alert, oriented X3 Psychiatric exam: Present: normal affect, normal mood Skin exam: Present: warm, dry <Samira Abdi - Last Filed: 11/05/23 00:50> - General Exam Comments Initial Comments: Visual Physical Exam General: Well-appearing, nontoxic, no acute distress. Head: Normocephalic, atraumatic Eyes: PERRLA, EOMI ENT: Airway patent Chest: Nonlabored breathing Skin: No visual rash, normal skin tone Neuro: Alert and oriented 3 Musculoskeletal: No gross abnormalities (Shelbie Weston) Course Vital Signs 11/04/23 11/04/23 11/04/23 18:12 21:35 22:11 Temperature 98.1 F Pulse Rate 101 H 74 87 Respiratory 20 16 18 Rate Blood Pressure 131/84 118/68 114/67 O2 Sat by Pulse 100 98 Oximetry 11/05/23 00:00 Temperature Pulse Rate 78 Respiratory 16 Rate Blood Pressure 115/65 O2 Sat by Pulse Oximetry Medical Decision Making <Shelbie Weston - Last Filed: 11/04/23 17:51> - Lab Data Result diagrams: 11/04/23 20:14 11/04/23 20:14 <Samira Abdi - Last Filed: 11/05/23 00:50> - Medical Decision Making I completed the quick note portion of this chart signed Shelbie Weston PA-C (Shelbie Weston) Was pt. sent in by a medical professional or institution (, PA, SUSPENDER CUTTER, urgent care, hospital, or detention...) When possible be specific @ -No Did you speak to anyone other than the patient for history (EMS, parent, family, police, friend...)? What history was obtained from this source @ -No Did you review nursing and triage notes (agree or disagree)? Why? @ -I reviewed and agree with nursing and triage notes Were old charts reviewed (outside hosp., previous admission, EMS record, old EKG, old radiological studies, urgent care reports/EKG's, detention records)? Report findings @ -Previous visits and admissions are reviewed Differential Diagnosis (chest pain, altered mental status, abdominal pain women, abdominal pain men, vaginal bleeding, weakness, fever, dyspnea, syncope, headache, dizziness, GI bleed, back pain, seizure, CVA, palpatations, mental health, musculoskeletal)? @ -MDM Differential Weakness: Hypoglycemia, shock, sepsis, hyponatremia, anemia, infection, DE, ETOH, adverse medicine reaction, overdose, stroke. ... This is not meant to be an all- inclusive list EKG interpreted by me (3pts min.). @ -As above X-rays interpreted by me (1pt min.). @ -Chest x-ray shows no acute cardiopulmonary disease process. COPD changes. CT interpreted by me (1pt min.). @ -None done U/S interpreted by me (1pt. min.). @ -None done What testing was considered but not performed or refused? (CT, X-rays, U/S, labs)? Why? @ -None What meds were considered but not given or refused? Why? @ -None Did you discuss the management of the patient with other professionals (professionals i.e. , PA, SUSPENDER CUTTER, lab, RT, psych nurse, social work associate, theater teacher, teacher, flight deck officer, continuous pillowcase cutter)? Give summary @ -I spoke with Dr. Wagner who accepted admission Was smoking cessation discussed for >3mins.? @ -No Was critical care preformed (if so, how long)? @ -No Were there social determinants of health that impacted care today? How? (Homelessness, low income, unemployed, alcoholism, drug addiction, transportation, low edu. Level, literacy, decrease access to med. care, intermediate, rehab)? @ -No Was there de-escalation of care discussed even if they declined (Discuss DNR or withdrawal of care, Hospice)? DNR status @ -No What co-morbidities impacted this encounter? (DM, HTN, Smoking, COPD, CAD, Cancer, CVA, ARF, Chemo, Hep., AIDS, mental health diagnosis, sleep apnea, morbid obesity)? @ -CML Was patient admitted / discharged? Hospital course, mention meds given and route, prescriptions, significant lab abnormalities, going to OR and other pertinent info. @ -63-year-old female presenting with chief complaint of generalized weakness. She has CML with history of severe anemia. Exam are conducted. Hemoglobin is 5.4. Hematocrit 19.8. WBC 23.7 RBC 2.04. Platelets 2019. Patient is irregular with her Gleevec. Urine shows evidence of slight UTI, she is given Rocephin. 1 unit packed red blood cells is ordered. Chest x-ray shows no acute process. Patient will be admitted. She is agreeable with this plan. I discussed this case with my attending Dr. Mejia Undiagnosed new problem with uncertain prognosis? @ -No Drug Therapy requiring intensive monitoring for toxicity (Heparin, Nitro, Insulin, Cardizem)? @ -No Were any procedures done? @ -No Diagnosis/symptom? @ -Anemia Acute, or Chronic, or Acute on Chronic? @ -Acute on chronic Uncomplicated (without systemic symptoms) or Complicated (systemic symptoms)? @ -Complicated Side effects of treatment? @ -No Exacerbation, Progression, or Severe Exacerbation? @ -No Poses a threat to life or bodily function? How? (Chest pain, USA, DE, pneumonia, PE, COPD, DKA, ARF, appy, cholecystitis, CVA, Diverticulitis, Homicidal, Suicidal, threat to staff... and all critical care pts) @ -Yes (Samira Abdi) - Lab Data Lab Results 11/04/23 11/04/23 11/04/23 Range/Units 20:14 20:14 20:14 WBC 23.7 H (3.8-10.6) k/uL RBC 2.04 L (3.80-5.40) m/uL Hgb 5.4 L* D (11.4-16.0) gm/dL Hct 19.8 L* (34.0-46.0) % MCV 97.0 (80.0-100.0) fL MCH 26.3 (25.0-35.0) pg MCHC 27.1 L (31.0-37.0) g/dL RDW 27.6 H (11.5-15.5) % Plt Count 2019 H* (150-450) k/uL MPV 8.1 Neutrophils % (Manual) 60 % Band Neuts % (Manual) 18 % Lymphocytes % (Manual) 5 % Monocytes % (Manual) 9 % Eosinophils % (Manual) 1 % Metamyelocytes % 4 % Myelocytes % 2 % Blast Cells % 1 H* % Neutrophils # (Manual) 18.40 H (1.3-7.7) k/uL Lymphocytes # (Manual) 1.19 (1.0-4.8) k/uL Monocytes # (Manual) 2.13 H (0-1.0) k/uL Eosinophils # (Manual) 0.24 (0-0.7) k/uL Metamyelocytes # (Man) 0.95 H (0) k/uL Myelocytes # (Manual) 0.47 H (0) k/uL Blast Cells # (Man) 0.24 H (0) k/uL Nucleated RBCs 8 H (0-0) /100 WBC Manual Slide Review Performed Polychromasia Present Hypochromasia Marked Poikilocytosis Slight Poikilocytosis (manual Present Anisocytosis Marked Anisocytosis (manual) Present Microcytosis Slight Macrocytosis Marked A PT (10.0-12.5) sec INR (<1.2) APTT (22.0-30.0) sec Sodium 138 (137-145) mmol/L Potassium 3.9 (3.5-5.1) mmol/L Chloride 109 H (98-107) mmol/L Carbon Dioxide 22 (22-30) mmol/L Anion Gap 7 mmol/L BUN 18 H (7-17) mg/dL Creatinine 0.85 (0.52-1.04) mg/dL Est GFR (CKD-EPI)AfAm 86 (>60 ml/min/1.73 sqM) Est GFR (CKD-EPI)NonAf 75 (>60 ml/min/1.73 sqM) Glucose 78 (74-99) mg/dL Calcium 9.2 (8.4-10.2) mg/dL Magnesium (1.6-2.3) mg/dL Total Bilirubin 0.3 (0.2-1.3) mg/dL AST 39 H (14-36) U/L ALT 21 (4-34) U/L Alkaline Phosphatase 57 (38-126) U/L Troponin I (0.000-0.034) ng/mL Total Protein 6.0 L (6.3-8.2) g/dL Albumin 3.9 (3.5-5.0) g/dL Urine Color Colorless Urine Appearance Clear (Clear) Urine pH 6.0 (5.0-8.0) Ur Specific [place] 1.014 (1.001-1.035) Urine Protein Negative (Negative) Urine Glucose (UA) Negative (Negative) Urine Ketones Negative (Negative) Urine Blood Negative (Negative) Urine Nitrite Positive H (Negative) Urine Bilirubin Negative (Negative) Urine Urobilinogen <2.0 (<2.0) mg/dL Ur Leukocyte Esterase Small H (Negative) Urine RBC <1 (0-5) /hpf Urine WBC 16 H (0-5) /hpf Ur Squamous Epith Cells <1 (0-4) /hpf Urine Bacteria Many H (None) /hpf Blood Type Blood Type Recheck Bld Type Recheck Status Antibody Screen Crossmatch Spec Expiration Date 11/04/23 11/04/23 11/04/23 Range/Units 20:14 20:14 20:14 WBC (3.8-10.6) k/uL RBC (3.80-5.40) m/uL Hgb (11.4-16.0) gm/dL Hct (34.0-46.0) % MCV (80.0-100.0) fL MCH (25.0-35.0) pg MCHC (31.0-37.0) g/dL RDW (11.5-15.5) % Plt Count (150-450) k/uL MPV Neutrophils % (Manual) % Band Neuts % (Manual) % Lymphocytes % (Manual) % Monocytes % (Manual) % Eosinophils % (Manual) % Metamyelocytes % % Myelocytes % % Blast Cells % % Neutrophils # (Manual) (1.3-7.7) k/uL Lymphocytes # (Manual) (1.0-4.8) k/uL Monocytes # (Manual) (0-1.0) k/uL Eosinophils # (Manual) (0-0.7) k/uL Metamyelocytes # (Man) (0) k/uL Myelocytes # (Manual) (0) k/uL Blast Cells # (Man) (0) k/uL Nucleated RBCs (0-0) /100 WBC Manual Slide Review Polychromasia Hypochromasia Poikilocytosis Poikilocytosis (manual Anisocytosis Anisocytosis (manual) Microcytosis Macrocytosis PT 10.9 (10.0-12.5) sec INR 1.0 (<1.2) APTT 23.5 (22.0-30.0) sec Sodium (137-145) mmol/L Potassium (3.5-5.1) mmol/L Chloride (98-107) mmol/L Carbon Dioxide (22-30) mmol/L Anion Gap mmol/L BUN (7-17) mg/dL Creatinine (0.52-1.04) mg/dL Est GFR (CKD-EPI)AfAm (>60 ml/min/1.73 sqM) Est GFR (CKD-EPI)NonAf (>60 ml/min/1.73 sqM) Glucose (74-99) mg/dL Calcium (8.4-10.2) mg/dL Magnesium 1.9 (1.6-2.3) mg/dL Total Bilirubin (0.2-1.3) mg/dL AST (14-36) U/L ALT (4-34) U/L Alkaline Phosphatase (38-126) U/L Troponin I <0.012 (0.000-0.034) ng/mL Total Protein (6.3-8.2) g/dL Albumin (3.5-5.0) g/dL Urine Color Urine Appearance (Clear) Urine pH (5.0-8.0) Ur Specific [place] (1.001-1.035) Urine Protein (Negative) Urine Glucose (UA) (Negative) Urine Ketones (Negative) Urine Blood (Negative) Urine Nitrite (Negative) Urine Bilirubin (Negative) Urine Urobilinogen (<2.0) mg/dL Ur Leukocyte Esterase (Negative) Urine RBC (0-5) /hpf Urine WBC (0-5) /hpf Ur Squamous Epith Cells (0-4) /hpf Urine Bacteria (None) /hpf Blood Type Blood Type Recheck Bld Type Recheck Status Antibody Screen Crossmatch Spec Expiration Date 11/04/23 Range/Units 21:08 WBC (3.8-10.6) k/uL RBC (3.80-5.40) m/uL Hgb (11.4-16.0) gm/dL Hct (34.0-46.0) % MCV (80.0-100.0) fL MCH (25.0-35.0) pg MCHC (31.0-37.0) g/dL RDW (11.5-15.5) % Plt Count (150-450) k/uL MPV Neutrophils % (Manual) % Band Neuts % (Manual) % Lymphocytes % (Manual) % Monocytes % (Manual) % Eosinophils % (Manual) % Metamyelocytes % % Myelocytes % % Blast Cells % % Neutrophils # (Manual) (1.3-7.7) k/uL Lymphocytes # (Manual) (1.0-4.8) k/uL Monocytes # (Manual) (0-1.0) k/uL Eosinophils # (Manual) (0-0.7) k/uL Metamyelocytes # (Man) (0) k/uL Myelocytes # (Manual) (0) k/uL Blast Cells # (Man) (0) k/uL Nucleated RBCs (0-0) /100 WBC Manual Slide Review Polychromasia Hypochromasia Poikilocytosis Poikilocytosis (manual Anisocytosis Anisocytosis (manual) Microcytosis Macrocytosis PT (10.0-12.5) sec INR (<1.2) APTT (22.0-30.0) sec Sodium (137-145) mmol/L Potassium (3.5-5.1) mmol/L Chloride (98-107) mmol/L Carbon Dioxide (22-30) mmol/L Anion Gap mmol/L BUN (7-17) mg/dL Creatinine (0.52-1.04) mg/dL Est GFR (CKD-EPI)AfAm (>60 ml/min/1.73 sqM) Est GFR (CKD-EPI)NonAf (>60 ml/min/1.73 sqM) Glucose (74-99) mg/dL Calcium (8.4-10.2) mg/dL Magnesium (1.6-2.3) mg/dL Total Bilirubin (0.2-1.3) mg/dL AST (14-36) U/L ALT (4-34) U/L Alkaline Phosphatase (38-126) U/L Troponin I (0.000-0.034) ng/mL Total Protein (6.3-8.2) g/dL Albumin (3.5-5.0) g/dL Urine Color Urine Appearance (Clear) Urine pH (5.0-8.0) Ur Specific [place] (1.001-1.035) Urine Protein (Negative) Urine Glucose (UA) (Negative) Urine Ketones (Negative) Urine Blood (Negative) Urine Nitrite (Negative) Urine Bilirubin (Negative) Urine Urobilinogen (<2.0) mg/dL Ur Leukocyte Esterase (Negative) Urine RBC (0-5) /hpf Urine WBC (0-5) /hpf Ur Squamous Epith Cells (0-4) /hpf Urine Bacteria (None) /hpf Blood Type B Negative Blood Type Recheck B Neg Bld Type Recheck Status No Antibody Screen NEGATIVE Crossmatch See Detail Spec Expiration Date 11/07/20232307 Disposition <Shelbie Weston - Last Filed: 11/04/23 17:51> <Samira Abdi - Last Filed: 11/05/23 00:50> Clinical Impression: Anemia Disposition: ADMITTED IP TO THIS HOSP Condition: Serious
--- NOTE | 2023-11-04 20:55 | XR ---
EXAMINATION TYPE: XR chest 2V DATE OF EXAM: 11/04/2023 8:38 PM CLINICAL INDICATION:Female, 63 years old with history of Weakness; [facility] COMPARISON: Chest radiographs from 10/04/2023. TECHNIQUE: XR chest 2V Frontal view of the chest. FINDINGS: Lungs/Pleura: There is flattening of the diaphragm with increased lucency of the lungs. No evidence o f pneumothorax, pleural effusion or focal consolidation. Pulmonary vascularity: Unremarkable. Heart/mediastinum: Cardiomediastinal silhouette is unremarkable. Musculoskeletal: No acute osseous pathology. There is fixation hardware in the lower cervical spine. IMPRESSION: 1. No acute cardiopulmonary disease process. 2. COPD changes.
[2023-11-04 21:01] LABS: Anisocytosis Marked; Hypochromasia Marked; MCH 26.3 pg (25.0-35.0); MCHC 27.1 g/dL (31.0-37.0); Macrocytosis Marked; Mean Platelet Volume 8.1; Microcytosis Slight; Poikilocytosis Slight; RBC 2.04 m/uL (3.80-5.40)
[2023-11-04 21:06] LABS: RDW 27.6 % (11.5-15.5)
[2023-11-04 21:14] LABS: HCT 19.8 % (34.0-46.0); HGB 5.4 gm/dL (11.4-16.0)
[2023-11-04 21:26] LABS: Partial Thromboplastin Time 23.5 sec (22.0-30.0); Prothrombin Time 10.9 sec (10.0-12.5)
[2023-11-04 21:52] LABS: Band Neutrophils % 18 %; Metamyelocytes % 4 %; Myelocytes % 2 %; Neutrophils % (M) 60 %
[2023-11-04 21:57] LABS: Blast Cells # (M) 0.24 k/uL (0); Eosinophils # (M) 0.24 k/uL (0-0.7); Lymphocytes # (M) 1.19 k/uL (1.0-4.8); Metamyelocytes # (M) 0.95 k/uL (0); Monocytes # (M) 2.13 k/uL (0-1.0); Myelocytes # (M) 0.47 k/uL (0); Nucleated Red Blood Cells 8 /100 WBC (0-0); Total Cells Counted 200; WBC 23.7 k/uL (3.8-10.6)
[2023-11-04 21:58] LABS: Anisocytosis (M) Present; Poikilocytosis (M) Present; Polychromasia Present
[2023-11-04 21:59] LABS: Platelet Count 2019 k/uL (150-450)
[2023-11-04] MEDS: ACETAMINOPHEN TAB 325 MG TAB PO STA (22:08)
[2023-11-04 22:43] LABS: Appearance,Urine Clear (Clear); Bacteria,Urine Many /hpf; Bilirubin,Urine Negative (Negative); Blood,Urine Negative (Negative); Color,Urine Colorless; Glucose,Urine (UA) Negative (Negative); Ketones,Urine Negative (Negative); Leukocyte Esterase,Urine Small (Negative); Nitrite,Urine Positive (Negative); Protein,Urine Negative (Negative); RBC,Urine <1 /hpf (0-5); Specific Gravity,Urine 1.014 (1.001-1.035); Squamous Epithelial Cell,Urine <1 /hpf (0-4); Urobilinogen,Urine <2.0 mg/dL (<2.0); WBC,Urine 16 /hpf (0-5)
[2023-11-04] MEDS: cefTRIAXone IN SWFI 1,000 MG/10 ML SYRINGE IVP ONE (23:03)
[2023-11-04 23:32] LABS: ALT 21 U/L (4-34); AST 39 U/L (14-36); African American GFR (CKD) 86 (>60 ml/min/1.73 sqM); Albumin 3.9 g/dL (3.5-5.0); Alkaline Phosphatase 57 U/L (38-126); Anion Gap 7 mmol/L; Blood Urea Nitrogen 18 mg/dL (7-17); Calcium 9.2 mg/dL (8.4-10.2); Carbon Dioxide 22 mmol/L (22-30); Chloride 109 mmol/L (98-107); Glucose 78 mg/dL (74-99); Non-African American GFR(CKD) 75 (>60 ml/min/1.73 sqM); Potassium 3.9 mmol/L (3.5-5.1); Sodium 138 mmol/L (137-145); Total Bilirubin 0.3 mg/dL (0.2-1.3)
[2023-11-05] MEDS ORDERED: NALOXONE 0.4 MG/ML 1 ML VIAL IV PRN (00:05)
[2023-11-05] MEDS ORDERED: ACETAMINOPHEN TAB 325 MG TAB PO PRN (00:05)
[2023-11-05] MEDS ORDERED: MORPHINE SULFATE 4 MG/ML SYRINGE IV PRN (00:05)
[2023-11-05] MEDS: hydrOXYzine HCL 25 MG TAB PO PRN (02:35)
[2023-11-05] MEDS: HYDROcodone/APAP 5-325MG 1 EACH TAB PO PRN (02:36)
[2023-11-05] MEDS: GABAPENTIN 400 MG CAP PO STA (02:36)
[2023-11-05] MEDS: HYDROmorphone 1 MG/ML 1 ML SYRINGE IVP STA (02:58)
--- NOTE | 2023-11-05 10:30 | XR ---
EXAMINATION TYPE: XR lumbar spine 2 or 3V DATE OF EXAM: 11/05/2023 COMPARISON: None HISTORY: Back pain TECHNIQUE: 3 view lumbar spine FINDINGS: There are 5 lumbar-type vertebral bodies. The pedicles are intact. Degenerative disc change s are present L5-S1. Posterior disc space narrowing is present L4-5. Vertebral body heights are prese rved. Alignment appears preserved. Vascular calcification is within the abdominal aorta. IMPRESSION: 1. Degenerative disc changes predominantly L5-S1.
[2023-11-05 12:32] LABS: Anisocytosis Marked; HCT 21.7 % (34.0-46.0); Hypochromasia Marked; MCH 27.8 pg (25.0-35.0); MCHC 29.7 g/dL (31.0-37.0); MCV 93.3 fL (80.0-100.0); Macrocytosis Moderate; Mean Platelet Volume 8.4; Microcytosis Slight; Poikilocytosis Moderate; RBC 2.32 m/uL (3.80-5.40)
[2023-11-05 12:37] LABS: African American GFR (CKD) 83 (>60 ml/min/1.73 sqM); Anion Gap 3 mmol/L; Blood Urea Nitrogen 15 mg/dL (7-17); Calcium 9.1 mg/dL (8.4-10.2); Carbon Dioxide 25 mmol/L (22-30); Chloride 112 mmol/L (98-107); Glucose 99 mg/dL (74-99); Non-African American GFR(CKD) 72 (>60 ml/min/1.73 sqM); Potassium 4.9 mmol/L (3.5-5.1); Sodium 140 mmol/L (137-145)
[2023-11-05 12:49] LABS: Platelet Count 1824 k/uL (150-450); RDW 25.5 % (11.5-15.5)
[2023-11-05 12:52] LABS: HGB 6.5 gm/dL (11.4-16.0)
[2023-11-05 14:53] LABS: Band Neutrophils % 5 %; Metamyelocytes # (M) 0.22 k/uL (0); Metamyelocytes % 1 %; Myelocytes % 3 %; Neutrophils % (M) 67 %; Nucleated Red Blood Cells 3 /100 WBC (0-0); Total Cells Counted 200
[2023-11-05 14:54] LABS: Basophils # (M) 1.74 k/uL (0-0.2); Eosinophils # (M) 0.43 k/uL (0-0.7); Lymphocytes # (M) 1.52 k/uL (1.0-4.8); Monocytes # (M) 1.74 k/uL (0-1.0); Myelocytes # (M) 0.65 k/uL (0); WBC 21.7 k/uL (3.8-10.6)
[2023-11-05 14:56] LABS: Large Platelets Present
[2023-11-05 14:57] LABS: Polychromasia Present; Target Cells Present
[2023-11-05] MEDS ORDERED: LACTULOSE 20 GM/30 ML CUP PO PRN (15:00)
[2023-11-05] MEDS ORDERED: GABAPENTIN 400 MG CAP PO PRN (15:00)
[2023-11-05] MEDS ORDERED: ALBUTEROL HFA INHALER INHALATION PRN (15:00)
[2023-11-05] MEDS: FERROUS SULFATE 325 MG TAB PO SCH (15:17)
[2023-11-05] MEDS: buPROPion XL 150 MG TAB.ER.24H PO SCH (15:18)
[2023-11-05] MEDS: GABAPENTIN 400 MG CAP PO SCH (15:18)
[2023-11-05] MEDS: HYDROcodone/APAP 7.5-325MG 1 EACH TAB PO SCH (15:18)
[2023-11-05] MEDS: hydrOXYzine pamoate 25 MG CAP PO PRN (15:19)
[2023-11-05] MEDS: PANTOPRAZOLE 40 MG/10 ML VIAL IVP SCH (15:40)
[2023-11-05] MEDS: SERTRALINE 50 MG TAB PO SCH (15:41)
[2023-11-05 21:22] LABS: Ferritin 23.5 ng/mL (10.0-291.0)
[2023-11-05 21:51] LABS: Vitamin B12 >3600.0 pg/mL (200.0-944.0)
[2023-11-05] MEDS: BACLOFEN 10 MG TAB PO SCH (22:31)
[2023-11-05] MEDS: TOPIRAMATE 100 MG TAB PO SCH (22:31)
[2023-11-05] MEDS: TRETINOIN TOPICAL SCH (22:32)
[2023-11-05] MEDS: CLINDAMYCIN PHOSPHATE TOPICAL SCH (22:32)
[2023-11-05 22:38] LABS: % Iron Saturation 7.67 (12.00-45.00); Iron 28 UG/DL (50-170); Total Iron Binding Capacity 365 UG/DL (228-460)
--- NOTE | 2023-11-05 23:35 | P.CONS ---
History of Present Illness - Reason for Consult Consult date: 11/05/23 anemia, CML Requesting physician: Samira Abdi - Chief Complaint weakness - History of Present Illness Ms. Pickard is a 63-year-old woman with a past medical history significant for CML currently on Gleevec presenting with concern for SOB, weakness and low hemoglobin. Of note patient was seen on consult in May and July 2023 with similar symptoms and concern for GI bleed. Had EGD on 06/11 which showed no active GI bleed. Over the past week, she has been having progressive weakness, orthostatic dizziness and SOB. She denies blood in stool and melena. Patient was seen in clinic on 10/01/23 for follow-up and was noted to have a hemoglobin of 7.9, WBC 35.9, plts 1621. Iron studies on 10/01/2023 in clinic showed iron saturation 31.5% and ferritin 161. She had subsequent hospital admission for anemia and transfused PRBCs during that visiit and was subsequently duscharged. Patient has been on Gleevac for CML, but has been inconsistent with medication, and frequently stops medication and decreases her doses on her own. At todays visit she states she has been taking Gleevac daily. She had f/u scheduled with Dr. Dawkins to further discuss goals of care and treatment options but was missed due to patient not feeling well. Patient presented to the ER with complaints of progressing weakness and associated dizziness. Also reporting low back pain with radiating pain to BLE and bilateral flank pain. Denies urinary symptoms. Denies acute bleeding episodes. Denies nausea vomiting and diarrhea. UA suspicious for UTI, Rocephin was given. Patient is afebrile. CBC revealed WBC 23.7, hemoglobin 5.4, platelets 2019. 1 unit PRBCs ordered. Creatinine 0.85, GFR 75. Review of Systems 10 point ROS is negative except as stated in the HPI Past Medical History Past Medical History: GERD/Reflux, Pneumonia, Rheumatoid Arthritis (RA) Additional Past Medical History / Comment(s): IP ADMISSION FORGASTRIC ULCER IN MAY 2022 WITH HIGH PLATELET & WHITE COUNT THROMBYTOSIS- (SEES DR DAWKINS). COPD, leukoplakia of the vocal cords, chronic shoulder back and neck pain, acid refl ux, depression, raynaud's syndrome. takes aldactone for hair loss. CML History of Any Multi-Drug Resistant Organisms: MRSA Year Discovered:: 05/03/19 MDRO Source:: MRSA FACE Past Surgical History: Back Surgery, Cholecystectomy, Hernia Repair, Orthopedic Surgery, Tonsillectomy Additional Past Surgical History / Comment(s): arthroscopic shoulder, vocal cord scraping, dariana fundoplasty, CERVICAL FUSSION, recent EGD, colonoscopy. VENTRAL HERNIA. Past Anesthesia/Blood Transfusion Reactions: Blood Transfusion Reaction Additional Past Anesthesia/Blood Transfusion Reaction / Comm: TRANSFUSIONS WITH GASTRIC ULCER, no previous reactions Past Psychological History: Anxiety, Depression Smoking Status: Current some day smoker Past Alcohol Use History: None Reported Past Drug Use History: None Reported - Past Family History Mother History Unknown: Yes Family Medical History: Cancer Father Family Medical History: Unable to Obtain Medications and Allergies Home Medications Medication Instructions Recorded Confirmed Type Gabapentin 800 mg PO TID 05/01/14 11/05/23 History Topiramate 100 mg PO BID 05/01/14 11/05/23 History HYDROcodone/APAP 7.5-325MG [[place] 1 tab PO QID 03/11/16 11/05/23 History 7.5-325] Baclofen [Lioresal] 20 mg PO HS 07/02/17 11/05/23 History Sertraline [Zoloft] 50 mg PO DAILY 07/02/17 11/05/23 History buPROPion XL [Wellbutrin XL] 300 mg PO DAILY 07/02/17 11/05/23 History Multivit with Calcium,Iron,Min 1 tab PO DAILY 10/21/19 11/05/23 History [Women's Multivitamin] Spironolactone [Aldactone] 25 mg PO DAILY 12/21/21 11/05/23 History Aspirin [Adult Low Dose Aspirin EC] 81 mg PO Q2D 06/07/22 11/05/23 History Omeprazole [PriLOSEC] 20 mg PO AC-BRKFST #90 cap 06/09/22 11/05/23 Rx Clindamycin Phosphate 1 applic TOPICAL BID 01/16/23 11/05/23 History Tretinoin [Tretinoin 0.025%] 1 applic TOPICAL HS 01/16/23 11/05/23 History Lactulose [Cephulac] 30 gm PO BID PRN #600 ml 01/20/23 11/05/23 Rx Ondansetron Odt [Zofran ODT] 4 mg PO Q6H PRN 03/09/23 11/05/23 History Gabapentin 800 mg PO DAILY PRN 08/02/23 11/05/23 History Imatinib Mesylate 200 mg PO PC-SUPPER 08/02/23 11/05/23 History Ferrous Sulfate [Feosol] 325 mg PO BID #60 tab 08/05/23 11/05/23 Rx Famotidine [Pepcid] 20 mg PO HS #30 tab 10/06/23 11/05/23 Rx hydrOXYzine pamoate [Vistaril] 25 mg PO BID PRN #4 cap 10/06/23 11/05/23 Rx Albuterol Inhaler [Ventolin Hfa 1 puff INHALATION RT-Q6H PRN 11/05/23 11/05/23 History Inhaler] Allergies Allergy/AdvReac Type Severity Reaction Status Date / Time metronidazole [From Flagyl] Allergy Itching, Verified 11/05/23 07:30 BURNING OF SKIN Physical Exam Vitals: Vital Signs Temp Pulse Resp BP Pulse Ox 11/05/23 15:00 72 16 109/76 11/05/23 11:17 98.6 F 91 16 99/63 99 11/05/23 09:26 97.7 F 92 16 93/58 99 11/05/23 09:11 98 F 81 18 93/56 99 11/05/23 08:57 98.2 F 79 18 102/60 99 11/05/23 06:00 84 18 102/67 99 11/05/23 04:00 90 22 90/59 11/05/23 02:38 93 24 112/57 11/05/23 02:00 91 21 106/60 11/05/23 00:00 78 16 115/65 11/04/23 22:11 87 18 114/67 98 11/04/23 21:35 74 16 118/68 11/04/23 18:12 98.1 F 101 H 20 131/84 100 Intake and Output 11/05/23 11/05/23 11/05/23 06:59 14:59 22:59 Intake Total 310 Balance 310 Intake: Blood Product 310 Rc Irr As1 Unit 310 [id number] - Constitutional General appearance: average body habitus, no acute distress - EENT Eyes: anicteric sclerae, EOMI ENT: hearing grossly normal - Respiratory Respiratory: bilateral: CTA - Cardiovascular Rhythm: regular Heart sounds: normal: S1, S2 - Gastrointestinal General gastrointestinal: soft, tenderness Localized gastrointestinal: tender: epigastric periumbilical - Integumentary Integumentary: pale - Neurologic Neurologic: CNII-XII intact - Musculoskeletal Musculoskeletal: strength equal bilaterally - Psychiatric Psychiatric: A&O x's 3 Results CBC & Chem 7: 11/05/23 11:52 11/05/23 11:52 Labs: Abnormal Lab Results - Last 24 Hours (Table) 11/04/23 11/04/23 11/04/23 Range/Units 20:14 20:14 20:14 WBC 23.7 H (3.8-10.6) k/uL RBC 2.04 L (3.80-5.40) m/uL Hgb 5.4 L* D (11.4-16.0) gm/dL Hct 19.8 L* (34.0-46.0) % MCHC 27.1 L (31.0-37.0) g/dL RDW 27.6 H (11.5-15.5) % Plt Count 2019 H* (150-450) k/uL Blast Cells % 1 H* % Neutrophils # (Manual) 18.40 H (1.3-7.7) k/uL Monocytes # (Manual) 2.13 H (0-1.0) k/uL Basophils # (Manual) (0-0.2) k/uL Metamyelocytes # (Man) 0.95 H (0) k/uL Myelocytes # (Manual) 0.47 H (0) k/uL Blast Cells # (Man) 0.24 H (0) k/uL Nucleated RBCs 8 H (0-0) /100 WBC Macrocytosis Marked A Chloride 109 H (98-107) mmol/L BUN 18 H (7-17) mg/dL AST 39 H (14-36) U/L Total Protein 6.0 L (6.3-8.2) g/dL Urine Nitrite Positive H (Negative) Ur Leukocyte Esterase Small H (Negative) Urine WBC 16 H (0-5) /hpf Urine Bacteria Many H (None) /hpf Crossmatch 11/04/23 11/05/23 11/05/23 Range/Units 21:08 11:52 11:52 WBC 21.7 H (3.8-10.6) k/uL RBC 2.32 L (3.80-5.40) m/uL Hgb 6.5 L* (11.4-16.0) gm/dL Hct 21.7 L (34.0-46.0) % MCHC 29.7 L (31.0-37.0) g/dL RDW 25.5 H (11.5-15.5) % Plt Count 1824 H* (150-450) k/uL Blast Cells % % Neutrophils # (Manual) 15.60 H (1.3-7.7) k/uL Monocytes # (Manual) 1.74 H (0-1.0) k/uL Basophils # (Manual) 1.74 H (0-0.2) k/uL Metamyelocytes # (Man) 0.22 H (0) k/uL Myelocytes # (Manual) 0.65 H (0) k/uL Blast Cells # (Man) (0) k/uL Nucleated RBCs 3 H (0-0) /100 WBC Macrocytosis Chloride 112 H (98-107) mmol/L BUN (7-17) mg/dL AST (14-36) U/L Total Protein (6.3-8.2) g/dL Urine Nitrite (Negative) Ur Leukocyte Esterase (Negative) Urine WBC (0-5) /hpf Urine Bacteria (None) /hpf Crossmatch See Detail Assessment and Plan (1) Back pain Current Visit: Yes Status: Acute Priority: Medium Code(s): M54.9 - DORSALGIA, UNSPECIFIED SNOMED Code(s): 677455291 (2) Symptomatic anemia Current Visit: Yes Status: Acute Priority: High Code(s): D64.9 - ANEMIA, UNSPECIFIED SNOMED Code(s): 630411606 (3) Chronic myeloid leukemia (CML), BCR/ABL-positive Current Visit: Yes Status: Chronic Priority: Medium Code(s): C92.10 - CHRONIC MYELOID LEUK, BCR/ABL-POSITIVE, NOT ACHIEVE REMIS SNOMED Code(s): 09970417 (4) Leukocytosis Current Visit: Yes Status: Chronic Priority: Medium Code(s): D72.829 - ELEVATED WHITE BLOOD CELL COUNT, UNSPECIFIED SNOMED Code(s): 245590674 (5) Thrombocytosis Current Visit: Yes Status: Chronic Priority: Medium Code(s): D75.839 - THROMBOCYTOSIS, UNSPECIFIED SNOMED Code(s): 5144739 Plan: Anemia -Multifactorial including chronic from CML, and anemia of inflammation. Iron studies in clinic on 10/01/23 consistent with anemia of inflammation -Hgb on admit 5.4, 1 unit PRBCs ordered -Hx of hemorrhagic gastritis. Repeat EGD on 06/11/23 neg for acute findings or bleeding. Denies ariane blood in stool and melena. Recommend continued f/u with GI for routine endoscopic evaluation -UA suspicious for UTI, Rocephin given. Urine culture ordered -Will repeat anemia labs and obtain thyroid studies -Continue to monitor CBC, please transfuse for hgb less than 7 or if symptomatic Thrombocytosis, leukocytosis, acute on chronic - Started treatment of CML in Feb 2023 and had shown improvements in plt and white counts, however she has been inconsistent with regimen and counts have continued to fluctuate. - It is not clear if the persistent elevation of WBC and platelets is due to loss of effectiveness of the Gleevec vs non-compliance with regimen, and/or acute on chronic blood loss and inflammation from RA -Thrombocytosis likely reactive, as platelets have shown elevations in the past during hospitalizations and return to baseline as patient recovers CML -Diagnosed December 2022 -Initiated Gleevec 03/14/2023 with initial progressive decrease in leukocytosis and thrombocytosis. However, pt has been non-compliant with regimen and will stop and dose decrease medication on her own -Was prescribed Gleevec 400 mg, alternating with 200 mg every other day, however pt has stated the increased dose at 400mg caused too many symptoms and has only been taking 200mg daily. Reporting today that more recently she has been consistently taking medication daily. Will hold gleevac during admission -Missed last f/u with Dr. Dawkins due to acute symptoms, clinic f/u rescheduled for 11/21. Will further discuss goals of care and treatment plans/options attests: I have performed H&P and developed impression and plan of care for patient, discussed with dictator. I agree with dictated note, documented as a scribe
[2023-11-06 07:59] VITALS: RESP 15
[2023-11-06] MEDS: SPIRONOLACTONE 25 MG TAB PO SCH (08:43)
[2023-11-06 08:52] LABS: BUN/Creat Ratio 15.78 Ratio (12.00-20.00); Blood Urea Nitrogen 14.2 mg/dL (9.0-27.0); Calcium 8.9 mg/dL (8.7-10.3); Carbon Dioxide 22.1 mmol/L (21.6-31.8); Chloride 110 mmol/L (96-109); Glucose 92 mg/dL (70-110); Potassium 4.5 mmol/L (3.5-5.5); Sodium 141 mmol/L (135-145)
[2023-11-06 09:07] LABS: HCT 23.9 % (37.2-46.3); HGB 7.4 g/dL (12.0-15.0); MCH 27.8 pg (27.0-32.0); MCV 89.8 FL (80.0-97.0); NRBC Per 100 WBC 0.83 X 10*3/uL (0.00-0.01); RBC 2.66 X 10*6/uL (4.10-5.20); RDW 27.1 % (11.5-14.5); WBC 22.16 X 10*3/uL (4.50-10.00)
[2023-11-06 09:14] LABS: Anisocytosis (M) 3+; Eosinophils # (M) 0.66 X 10*3/uL (0.04-0.35); Lymphocytes # (M) 2.44 X 10*3/uL (0.90-5.00); Metamyelocytes % 4 % (0-0); Monocytes # (M) 0.89 X 10*3/uL (0.20-1.00); Myelocytes % 2 % (0-0); Neutrophils # (M) 13.74 X 10*3/uL (1.80-7.70); Neutrophils % (M) 62 %; Nucleated Red Blood Cells 11 /100 WBCS; Platelet Count 1705 X 10*3/uL (140-440); Schistocytes 1+
[2023-11-06] MEDS: ONDANSETRON 4 MG/2 ML VIAL IVP PRN (10:34)
[2023-11-06 13:38] VITALS: BP 98/65; PULSE 82; TEMP 98.2
[2023-11-06] MEDS: SODIUM FERRIC GLUCONAT-SUCROSE 125 MG in SODIUM CHLORIDE 0.9% 100 ML IVPB SCH (13:54)
--- NOTE | 2023-11-06 16:59 | P.HPIM ---
History of Present Illness H&P Date: 11/05/23 This is a 63-year-old female with past medical history significant for CML, multiple workups within the last year for anemia, follows regularly with Dr. Dawkins, presented to the ER with progressive symptomatic anemia, weakness, exertional dyspnea, fatigue, dizziness over the last couple of days with diffuse abdominal pain and worsening chronic back pain radiating down bilateral flanks to bilateral lower extremities over the last week and a half. Denies recent trauma, falls. denies anticoagulation use. denies any nausea, vomiting, abdominal pain.denies any bleeding, no blood in stools no black stools no hematochezia, melena or hematemesis. Denies syncope. Denies chest pain or palpitations. Troponin negative x 1. EKG reported sinus rhythm. on admission hemoglobin 5.4, received 2 units of packed RBCs. WBC 23.7,platelets 2019, INR 1, electrolytes within normal limits, renal function stable. T. bili 0.3, AST 39, ALT 21, alk phos 57. Chest x-ray reported no acute cardiopulmonary disease, COPD changes. UA reported many bacteria, 16 WBCs, small leukocytes ,positive nitrates, ceftriaxone initiated, urine culture ordered. Review of Systems ROS Statement: Those systems with pertinent positive or pertinent negative responses have been documented in the HPI. ROS Other: All systems not noted in ROS Statement are negative. Past Medical History Past Medical History: GERD/Reflux, Pneumonia, Rheumatoid Arthritis (RA) Additional Past Medical History / Comment(s): IP ADMISSION FORGASTRIC ULCER IN MAY 2022 WITH HIGH PLATELET & WHITE COUNT THROMBYTOSIS- (SEES DR DAWKINS). COPD, leukoplakia of the vocal cords, chronic shoulder back and neck pain, acid reflux, depression, raynaud's syndrome. takes aldactone for hair loss. CML History of Any Multi-Drug Resistant Organisms: MRSA Date of last positivie culture/infection: 05/03/19 MDRO Source:: MRSA FACE Past Surgical History: Back Surgery, Cholecystectomy, Hernia Repair, Orthopedic Surgery, Tonsillectomy Additional Past Surgical History / Comment(s): arthroscopic shoulder, vocal cord scraping, dariana fundoplasty, CERVICAL FUSSION, recent EGD, colonoscopy. VENTRAL HERNIA. Past Anesthesia/Blood Transfusion Reactions: Blood Transfusion Reaction Additional Past Anesthesia/Blood Transfusion Reaction / Comment(s): TRANSFUSIONS WITH GASTRIC ULCER, no previous reactions Past Psychological History: Anxiety, Depression Smoking Status: Current some day smoker Past Alcohol Use History: None Reported Past Drug Use History: None Reported - Past Family History Mother History Unknown: Yes Family Medical History: Cancer Father Family Medical History: Unable to Obtain Medications and Allergies Home Medications Medication Instructions Recorded Confirmed Type Gabapentin 800 mg PO TID 05/01/14 11/05/23 History Topiramate 100 mg PO BID 05/01/14 11/05/23 History HYDROcodone/APAP 7.5-325MG [[place] 1 tab PO QID 03/11/16 11/05/23 History 7.5-325] Baclofen [Lioresal] 20 mg PO HS 07/02/17 11/05/23 History Sertraline [Zoloft] 50 mg PO DAILY 07/02/17 11/05/23 History buPROPion XL [Wellbutrin XL] 300 mg PO DAILY 07/02/17 11/05/23 History Multivit with Calcium,Iron,Min 1 tab PO DAILY 10/21/19 11/05/23 History [Women's Multivitamin] Spironolactone [Aldactone] 25 mg PO DAILY 12/21/21 11/05/23 History Aspirin [Adult Low Dose Aspirin EC] 81 mg PO Q2D 06/07/22 11/05/23 History Omeprazole [PriLOSEC] 20 mg PO AC-BRKFST #90 cap 06/09/22 11/05/23 Rx Clindamycin Phosphate 1 applic TOPICAL BID 01/16/23 11/05/23 History Tretinoin [Tretinoin 0.025%] 1 applic TOPICAL HS 01/16/23 11/05/23 History Lactulose [Cephulac] 30 gm PO BID PRN #600 ml 01/20/23 11/05/23 Rx Ondansetron Odt [Zofran ODT] 4 mg PO Q6H PRN 03/09/23 11/05/23 History Gabapentin 800 mg PO DAILY PRN 08/02/23 11/05/23 History Imatinib Mesylate 200 mg PO PC-SUPPER 08/02/23 11/05/23 History Ferrous Sulfate [Feosol] 325 mg PO BID #60 tab 08/05/23 11/05/23 Rx Famotidine [Pepcid] 20 mg PO HS #30 tab 10/06/23 11/05/23 Rx hydrOXYzine pamoate [Vistaril] 25 mg PO BID PRN #4 cap 10/06/23 11/05/23 Rx Albuterol Inhaler [Ventolin Hfa 1 puff INHALATION RT-Q6H PRN 11/05/23 11/05/23 History Inhaler] Allergies Allergy/AdvReac Type Severity Reaction Status Date / Time metronidazole [From Flagyl] Allergy Itching, Verified 11/05/23 07:30 BURNING OF SKIN Physical Exam Vitals: Vital Signs Temp Pulse Resp BP Pulse Ox 11/05/23 17:57 97.8 F 80 16 102/68 100 11/05/23 17:37 97.9 F 80 16 99/69 100 11/05/23 17:24 98.8 F 77 16 97/64 98 11/05/23 15:00 72 16 109/76 11/05/23 11:17 98.6 F 91 16 99/63 99 11/05/23 09:26 97.7 F 92 16 93/58 99 11/05/23 09:11 98 F 81 18 93/56 99 11/05/23 08:57 98.2 F 79 18 102/60 99 11/05/23 06:00 84 18 102/67 99 11/05/23 04:00 90 22 90/59 11/05/23 02:38 93 24 112/57 11/05/23 02:00 91 21 106/60 11/05/23 00:00 78 16 115/65 11/04/23 22:11 87 18 114/67 98 11/04/23 21:35 74 16 118/68 Intake and Output 11/05/23 11/05/23 11/05/23 06:59 14:59 22:59 Intake Total 310 0 Balance 310 0 Intake: Blood Product 310 0 Rc Irr As1 Unit 310 [id number] Rc Irr As1 Unit 0 [id number] VITAL SIGNS: [As above] GENERAL: Pale, thin female, alert and oriented x 3, sitting up in bed, no acute distress HEENT: Normocephalic, atraumatic conjunctivae pale. eyes normal. Sclera anicteric NECK: Supple, no JVD. CARDIOVASCULAR: S1, S2 regular. No murmur RESPIRATION: Unlabored, equal air entry ,breath sounds diminished in the bases. ABDOMEN: Soft, nondistended, nontender . No guarding. No rigidity, positive bowel sounds LEGS: No edema. no swelling NERVOUS SYSTEM: Cranial N 2-12 grossly normal. Moves all 4 limbs. No focal deficits. Strength and sensation grossly intact. Skin: Warm and dry, no rash Results CBC & Chem 7: 11/06/23 04:09 11/06/23 04:09 Labs: Abnormal Lab Results - Last 24 Hours (Table) 11/04/23 11/04/23 11/04/23 Range/Units 20:14 20:14 20:14 WBC 23.7 H (3.8-10.6) k/uL RBC 2.04 L (3.80-5.40) m/uL Hgb 5.4 L* D (11.4-16.0) gm/dL Hct 19.8 L* (34.0-46.0) % MCHC 27.1 L (31.0-37.0) g/dL RDW 27.6 H (11.5-15.5) % Plt Count 2019 H* (150-450) k/uL Blast Cells % 1 H* % Neutrophils # (Manual) 18.40 H (1.3-7.7) k/uL Monocytes # (Manual) 2.13 H (0-1.0) k/uL Basophils # (Manual) (0-0.2) k/uL Metamyelocytes # (Man) 0.95 H (0) k/uL Myelocytes # (Manual) 0.47 H (0) k/uL Blast Cells # (Man) 0.24 H (0) k/uL Nucleated RBCs 8 H (0-0) /100 WBC Macrocytosis Marked A Chloride 109 H (98-107) mmol/L BUN 18 H (7-17) mg/dL AST 39 H (14-36) U/L Total Protein 6.0 L (6.3-8.2) g/dL Folate (4.40-31.00) ng/mL Urine Nitrite Positive H (Negative) Ur Leukocyte Esterase Small H (Negative) Urine WBC 16 H (0-5) /hpf Urine Bacteria Many H (None) /hpf Crossmatch 11/04/23 11/04/23 11/05/23 Range/Units 20:14 21:08 11:52 WBC 21.7 H (3.8-10.6) k/uL RBC 2.32 L (3.80-5.40) m/uL Hgb 6.5 L* (11.4-16.0) gm/dL Hct 21.7 L (34.0-46.0) % MCHC 29.7 L (31.0-37.0) g/dL RDW 25.5 H (11.5-15.5) % Plt Count 1824 H* (150-450) k/uL Blast Cells % % Neutrophils # (Manual) 15.60 H (1.3-7.7) k/uL Monocytes # (Manual) 1.74 H (0-1.0) k/uL Basophils # (Manual) 1.74 H (0-0.2) k/uL Metamyelocytes # (Man) 0.22 H (0) k/uL Myelocytes # (Manual) 0.65 H (0) k/uL Blast Cells # (Man) (0) k/uL Nucleated RBCs 3 H (0-0) /100 WBC Macrocytosis Chloride (98-107) mmol/L BUN (7-17) mg/dL AST (14-36) U/L Total Protein (6.3-8.2) g/dL Folate 35.30 H (4.40-31.00) ng/mL Urine Nitrite (Negative) Ur Leukocyte Esterase (Negative) Urine WBC (0-5) /hpf Urine Bacteria (None) /hpf Crossmatch See Detail 11/05/23 Range/Units 11:52 WBC (3.8-10.6) k/uL RBC (3.80-5.40) m/uL Hgb (11.4-16.0) gm/dL Hct (34.0-46.0) % MCHC (31.0-37.0) g/dL RDW (11.5-15.5) % Plt Count (150-450) k/uL Blast Cells % % Neutrophils # (Manual) (1.3-7.7) k/uL Monocytes # (Manual) (0-1.0) k/uL Basophils # (Manual) (0-0.2) k/uL Metamyelocytes # (Man) (0) k/uL Myelocytes # (Manual) (0) k/uL Blast Cells # (Man) (0) k/uL Nucleated RBCs (0-0) /100 WBC Macrocytosis Chloride 112 H (98-107) mmol/L BUN (7-17) mg/dL AST (14-36) U/L Total Protein (6.3-8.2) g/dL Folate (4.40-31.00) ng/mL Urine Nitrite (Negative) Ur Leukocyte Esterase (Negative) Urine WBC (0-5) /hpf Urine Bacteria (None) /hpf Crossmatch Assessment and Plan Assessment: Acute on chronic symptomatic anemia, related to CML. Status post multiple workups last year without evidence of GI bleed. Status posttransfusion 1 unit of packed RBCs CML, diagnosed December 2022 ,started treatments in February 2023 Acute on chronic thrombocytosis, related to the above Leukocytosis Possible acute UTI, urine culture pending Chronic thoracic back pain and tenderness, prior MRI reported age-related degenerative changes throughout the thoracic spine with multilevel disc bulging most pronounced at T2-T3, central disc protrusion C6-C7. Lumbar spine x-ray ordered. History of COPD, stable Hypertension GERD Rheumatoid arthritis History of anxiety/depression Continued ongoing nicotine dependence Moderate calorie protein malnutrition Plan: Continue on current medication regimen ,monitoring and symptomatic treatment. Empiric antibiotics initiated for possible acute UTI, urine culture pending .lumbar spine x-ray ordered. Pain management. maintain symptomatic, supportive care. Posttransfusion labs pending. Close monitoring of hemoglobin, platelets with repeat labs ordered for a.m. Hematology/oncology consult in place. GI prophylaxis in place. Discharge planning in progress for tomorrow pending DC recommendations and clearance per oncology. The impression and plan of care has been dictated as directed. : I performed a history and examination of this patient, discussed the same with the dictator. I agree with the dictator's note ,documented as a scribe. Any additional findings or plans will be noted.
--- NOTE | 2023-11-06 17:10 | P.DS ---
Providers Date of admission: 11/04/23 23:14 Expected date of discharge: 11/06/23 Attending physician: Bashir Jefferson MD Consults: 11/05/23 00:05 Consult Physician Urgent Consulting Provider: Alexandro Dawkins Consult Reason/Comments: CML, anemia Do you want consulting provider notified?: Yes, Notify in am Primary care physician: Katja Jefferson [place] [facility] Course: Final Diagnoses: Acute on chronic symptomatic anemia, related to CML. Status post multiple workups last year without evidence of GI bleed. Status posttransfusion 2 unit of packed RBCs CML, diagnosed December 2022 ,started treatments in February 2023 Acute on chronic thrombocytosis, related to the above Leukocytosis Possible acute UTI, urine culture pending Chronic thoracic back pain and tenderness, prior MRI reported age-related degenerative changes throughout the thoracic spine with multilevel disc bulging most pronounced at T2-T3, central disc protrusion C6-C7. Lumbar spine x-ray ordered. History of COPD, stable Hypertension GERD Rheumatoid arthritis History of anxiety/depression Continued ongoing nicotine dependence Moderate calorie protein malnutrition Hospital course:This is a 63-year-old female with past medical history significant for CML, multiple workups within the last year for anemia, follows regularly with Dr. Dawkins, presented to the ER with progressive symptomatic anemia, weakness, exertional dyspnea, fatigue, dizziness over the last couple of days with diffuse abdominal pain and worsening chronic back pain radiating down bilateral flanks to bilateral lower extremities over the last week and a half. Denies recent trauma, falls. denies anticoagulation use. denies any nausea, vomiting, abdominal pain.denies any bleeding, no blood in stools no black stools no hematochezia, melena or hematemesis. Denies syncope. Denies chest pain or palpitations. Troponin negative x 1. EKG reported sinus rhythm. on admission hemoglobin 5.4, received 2 units of packed RBCs. WBC 23.7,platelets 2019, INR 1, electrolytes within normal limits, renal function stable. T. bili 0.3, AST 39, ALT 21, alk phos 57. Chest x-ray reported no acute cardiopulmonary disease, COPD changes. UA reported many bacteria, 16 WBCs, small leukocytes ,positive nitrates, ceftriaxone initiated, urine culture ordered. Significant clinical improvement. Denies chest pain, palpitations or shortness of breath. Denies bleeding. Denies any bowel movement. Ambulating, tolerating exertion well. Reports lower back pain. Lumbar spine x-ray reported generative disc changes predominantly L5-S1. Suspect muscloskeletal strain, advised to follow-up outpatient in clinic for potential cortisone injection. Patient will be discharged home today, in a stable condition with guarded prognosis ,pending labs, final DC recommendations and clearance per oncology. The impression and plan of care has been dictated as directed. : I performed a history and examination of this patient, discussed the same with the dictator. I agree with the dictator's note ,documented as a scribe. Any additional findings or plans will be noted. Patient Condition at Discharge: Stable Plan - Discharge Summary Discharge Rx Participant: Yes New Discharge Prescriptions: New cefUROXime axetiL [Ceftin] 500 mg PO BID 3 Days #6 tab Continue Topiramate 100 mg PO BID Gabapentin 800 mg PO TID HYDROcodone/APAP 7.5-325MG [[place] 7.5-325] 1 tab PO QID Baclofen [Lioresal] 20 mg PO HS buPROPion XL [Wellbutrin XL] 300 mg PO DAILY Sertraline [Zoloft] 50 mg PO DAILY Multivit with Calcium,Iron,Min [Women's Multivitamin] 1 tab PO DAILY Aspirin [Adult Low Dose Aspirin EC] 81 mg PO Q2D Omeprazole [PriLOSEC] 20 mg PO AC-BRKFST #90 cap Clindamycin Phosphate 1 applic TOPICAL BID Tretinoin [Tretinoin 0.025%] 1 applic TOPICAL HS Lactulose [Cephulac] 30 gm PO BID PRN #600 ml PRN Reason: Constipation Gabapentin 800 mg PO DAILY PRN PRN Reason: Pain Imatinib Mesylate 200 mg PO PC-SUPPER Albuterol Inhaler [Ventolin Hfa Inhaler] 1 puff INHALATION RT-Q6H PRN PRN Reason: Shortness Of Breath Or Wheezing Spironolactone [Aldactone] 25 mg PO DAILY Ondansetron Odt [Zofran ODT] 4 mg PO Q6H PRN PRN Reason: Nausea Ferrous Sulfate [Feosol] 325 mg PO BID #60 tab Famotidine [Pepcid] 20 mg PO HS #30 tab hydrOXYzine pamoate [Vistaril] 25 mg PO BID PRN #4 cap PRN Reason: Anxiety Discharge Medication List Gabapentin 800 mg PO TID 05/01/14 [History] Topiramate 100 mg PO BID 05/01/14 [History] HYDROcodone/APAP 7.5-325MG [[place] 7.5-325] 1 tab PO QID 03/11/16 [History] Baclofen [Lioresal] 20 mg PO HS 07/02/17 [History] Sertraline [Zoloft] 50 mg PO DAILY 07/02/17 [History] buPROPion XL [Wellbutrin XL] 300 mg PO DAILY 07/02/17 [History] Multivit with Calcium,Iron,Min [Women's Multivitamin] 1 tab PO DAILY 10/21/19 [History] Spironolactone [Aldactone] 25 mg PO DAILY 12/21/21 [History] Aspirin [Adult Low Dose Aspirin EC] 81 mg PO Q2D 06/07/22 [History] Omeprazole [PriLOSEC] 20 mg PO AC-BRKFST #90 cap 06/09/22 [Rx] Clindamycin Phosphate 1 applic TOPICAL BID 01/16/23 [History] Tretinoin [Tretinoin 0.025%] 1 applic TOPICAL HS 01/16/23 [History] Lactulose [Cephulac] 30 gm PO BID PRN #600 ml 01/20/23 [Rx] Ondansetron Odt [Zofran ODT] 4 mg PO Q6H PRN 03/09/23 [History] Gabapentin 800 mg PO DAILY PRN 08/02/23 [History] Imatinib Mesylate 200 mg PO PC-SUPPER 08/02/23 [History] Ferrous Sulfate [Feosol] 325 mg PO BID #60 tab 08/05/23 [Rx] Famotidine [Pepcid] 20 mg PO HS #30 tab 10/06/23 [Rx] hydrOXYzine pamoate [Vistaril] 25 mg PO BID PRN #4 cap 10/06/23 [Rx] Albuterol Inhaler [Ventolin Hfa Inhaler] 1 puff INHALATION RT-Q6H PRN 11/05/23 [History] cefUROXime axetiL [Ceftin] 500 mg PO BID 3 Days #6 tab 11/06/23 [Rx] Follow up Appointment(s)/Referral(s): Luis Hernandez MD [STAFF PHYSICIAN] - 11/22/23 3:30 pm (Appointment will be with Dr Dawkins) Katja Jefferson DO [Primary Care Provider] - 3 Days (Office is not answering at time of discharge. Please call for follow-up appointment.) Ambulatory/Diagnostic Orders: Complete Blood Count w/diff [LAB.AMB] Time Frame: 3 Days, Location: None Selected Patient Instructions/Handouts: Anemia (DC) Discharge Disposition: HOME WITH HOME HEALTH SERVICES
== END 2023-11-06 15:44 | disposition home or self-care (01) | DRG 841 ==
LOC: EC 17:28 → 5NMEDONC 23:14 → 4SSUR 11-05 19:44
PROVIDERS: ADMIT Family Medicine; ATTEND Family Medicine
PROC: 30233N1 Transfusion of Nonautologous Red Blood Cells into Peripheral Vein, Percutaneous Approach (ICD-10-PCS; principal; 2023-11-05)
DX: C92.10 Chronic myeloid leukemia, BCR/ABL-positive, not having achieved remission (principal); E44.0 Moderate protein-calorie malnutrition; D63.0 Anemia in neoplastic disease; Z68.21 Body mass index [BMI] 21.0-21.9, adult; F32.A Depression, unspecified; I10 Essential (primary) hypertension; J44.9 Chronic obstructive pulmonary disease, unspecified; M50.223 Other cervical disc displacement at C6-C7 level; M51.34 Other intervertebral disc degeneration, thoracic region; M06.9 Rheumatoid arthritis, unspecified; D75.839 Thrombocytosis, unspecified; I73.00 Raynaud's syndrome without gangrene; J38.3 Other diseases of vocal cords; K21.9 Gastro-esophageal reflux disease without esophagitis; F41.9 Anxiety disorder, unspecified; G89.29 Other chronic pain; F17.200 Nicotine dependence, unspecified, uncomplicated; Z71.6 Tobacco abuse counseling; Z79.82 Long term (current) use of aspirin; Z79.2 Long term (current) use of antibiotics; Z79.891 Long term (current) use of opiate analgesic; Z79.899 Other long term (current) drug therapy; Z86.14 Personal history of Methicillin resistant Staphylococcus aureus infection; Z88.1 Allergy status to other antibiotic agents
CPT/HCPCS: 36415; 36430; 71046; 72100; 80048; 80053; 81001; 82607; 82728; 82746; 83540; 83550; 83735; 84443; 84484; 85025; 85610; 85730; 86850; 86900; 86901; 86920; 87086; 93005; 96374; 96375; 99285

== ENCOUNTER 2023-12-26 15:27 | Inpatient (IN) | payer MEDICARE, OTHER ==
--- NOTE | 2023-12-26 16:27 | ED ---
General Adult HPI - General Source: patient Mode of arrival: ambulatory Limitations: no limitations <Samira Abdi - Last Filed: 12/26/23 16:27> - General Source: RN notes reviewed, old records reviewed <Reyes Mejia - Last Filed: 12/26/23 18:32> - General Chief complaint: Weakness Stated complaint: SOB, abn labs Time Seen by Provider: 12/26/23 16:27 - History of Present Illness Initial comments: 63-year-old female presenting with chief complaint of "I think my hemoglobin is low". Patient has a history of anemia requiring blood transfusion. She admits to increased weakness for the past few days. No blood thinners. She does have history of GI bleed. (Samira Abdi) 63-year-old female with fatigue, generalized weakness. History of anemia requiring transfusion. Patient denies bright red rectal bleeding. Denies melena. Denies fever. (Reyes Mejia) - Related Data Home Medications Medication Instructions Recorded Confirmed Gabapentin 800 mg PO TID 05/01/14 11/05/23 Topiramate 100 mg PO BID 05/01/14 11/05/23 HYDROcodone/APAP 7.5-325MG [[place] 1 tab PO QID 03/11/16 11/05/23 7.5-325] Baclofen [Lioresal] 20 mg PO HS 07/02/17 11/05/23 Sertraline [Zoloft] 50 mg PO DAILY 07/02/17 11/05/23 buPROPion XL [Wellbutrin XL] 300 mg PO DAILY 07/02/17 11/05/23 Multivit with Calcium,Iron,Min 1 tab PO DAILY 10/21/19 11/05/23 [Women's Multivitamin] Spironolactone [Aldactone] 25 mg PO DAILY 12/21/21 11/05/23 Aspirin [Adult Low Dose Aspirin EC] 81 mg PO Q2D 06/07/22 11/05/23 Clindamycin Phosphate 1 applic TOPICAL BID 01/16/23 11/05/23 Tretinoin [Tretinoin 0.025%] 1 applic TOPICAL HS 01/16/23 11/05/23 Ondansetron Odt [Zofran ODT] 4 mg PO Q6H PRN 03/09/23 11/05/23 Gabapentin 800 mg PO DAILY PRN 08/02/23 11/05/23 Imatinib Mesylate 200 mg PO PC-SUPPER 08/02/23 11/05/23 Albuterol Inhaler [Ventolin Hfa 1 puff INHALATION RT-Q6H PRN 11/05/23 11/05/23 Inhaler] Previous Rx's Medication Instructions Recorded Omeprazole [PriLOSEC] 20 mg PO AC-BRKFST #90 cap 06/09/22 Lactulose [Cephulac] 30 gm PO BID PRN #600 ml 01/20/23 Ferrous Sulfate [Feosol] 325 mg PO BID #60 tab 08/05/23 Famotidine [Pepcid] 20 mg PO HS #30 tab 10/06/23 hydrOXYzine pamoate [Vistaril] 25 mg PO BID PRN #4 cap 10/06/23 cefUROXime axetiL [Ceftin] 500 mg PO BID 3 Days #6 tab 11/06/23 Allergies Allergy/AdvReac Type Severity Reaction Status Date / Time metronidazole [From Flagyl] Allergy Itching, Verified 12/26/23 15:39 BURNING OF SKIN Review of Systems ROS Other: All systems not noted in ROS Statement are negative. <Samira Abdi - Last Filed: 12/26/23 16:27> ROS Other: All systems not noted in ROS Statement are negative. <Reyes Mejia - Last Filed: 12/26/23 18:32> ROS Statement: Those systems with pertinent positive or pertinent negative responses have been documented in the HPI. Past Medical History Past Medical History: GERD/Reflux, Pneumonia, Rheumatoid Arthritis (RA) Additional Past Medical History / Comment(s): IP ADMISSION FORGASTRIC ULCER IN MAY 2022 WITH HIGH PLATELET & WHITE COUNT THROMBYTOSIS- (SEES DR REBOLLEDO). COPD, leukoplakia of the vocal cords, chronic shoulder back and neck pain, acid reflux, depression, raynaud's syndrome. takes aldactone for hair loss. CML History of Any Multi-Drug Resistant Organisms: MRSA Date of last positivie culture/infection: 05/03/19 MDRO Source:: MRSA FACE Past Surgical History: Back Surgery, Cholecystectomy, Hernia Repair, Orthopedic Surgery, Tonsillectomy Additional Past Surgical History / Comment(s): arthroscopic shoulder, vocal cord scraping, dariana fundoplasty, CERVICAL FUSSION, recent EGD, colonoscopy. VENTRAL HERNIA. Past Anesthesia/Blood Transfusion Reactions: Blood Transfusion Reaction Additional Past Anesthesia/Blood Transfusion Reaction / Comment(s): TRANSFUSIONS WITH GASTRIC ULCER, no previous reactions Past Psychological History: Anxiety, Depression Smoking Status: Current some day smoker Past Alcohol Use History: None Reported Past Drug Use History: None Reported - Past Family History Mother History Unknown: Yes Family Medical History: Cancer Father Family Medical History: Unable to Obtain <Samira Abdi - Last Filed: 12/26/23 16:27> General Exam Limitations: no limitations <Samira Abdi - Last Filed: 12/26/23 16:27> General appearance: alert, in no apparent distress Head exam: Present: atraumatic, normocephalic Eye exam: Present: normal appearance, PERRL Neck exam: Present: normal inspection. Absent: tenderness, meningismus Respiratory exam: Present: normal lung sounds bilaterally. Absent: respiratory distress, wheezes Cardiovascular Exam: Present: regular rate, normal rhythm GI/Abdominal exam: Present: soft. Absent: distended, tenderness, guarding, rebound Extremities exam: Present: pedal edema Neurological exam: Present: alert, oriented X3 Psychiatric exam: Present: normal affect, normal mood Skin exam: Present: pallor <Reyes Mejia - Last Filed: 12/26/23 18:32> - General Exam Comments Initial Comments: Visual Physical Exam Vital signs reviewed General: Well-appearing, nontoxic, no acute distress. Head: Normocephalic, atraumatic Eyes: PERRLA, EOMI ENT: Airway patent Chest: Nonlabored breathing Skin: No visual rash, normal skin tone Neuro: Alert and oriented 3 Musculoskeletal: No gross abnormalities (Samira Abdi) Course Vital Signs 12/26/23 15:36 Temperature 97.7 F Pulse Rate 98 Respiratory 18 Rate Blood Pressure 122/79 O2 Sat by Pulse 100 Oximetry Medical Decision Making <Samira Abdi - Last Filed: 12/26/23 16:27> - Lab Data Result diagrams: 12/26/23 17:12 12/26/23 17:12 <Reyes Mejia - Last Filed: 12/26/23 18:32> - Medical Decision Making I performed the quick note portion of this visit, electronically signed Samira Abdi PA-C (Samira Abdi) Was pt. sent in by a medical professional or institution ([facility], [employer], urgent care, hospital, or jail...) When possible be specific @ -No Did you speak to anyone other than the patient for history (EMS, parent, family, police, friend...)? What history was obtained from this source @ -No Did you review nursing and triage notes (agree or disagree)? Why? @ -I reviewed and agree with nursing and triage notes Were old charts reviewed (outside hosp., previous admission, EMS record, old EKG, old radiological studies, urgent care reports/EKG's, jail records)? Report findings @ -No old charts were reviewed Differential Weakness: Hypoglycemia, shock, sepsis, hyponatremia, anemia, infection, NV, ETOH, adverse medicine reaction, overdose, stroke, this is not meant to be an all-inclusive list. EKG interpreted by me (3pts min.). @Sinus rhythm rate of 95, WY interval 133, QRS duration 92, QTc [address] segment elevation. X-rays interpreted by me (1pt min.). @ -Chest x-ray negative for acute cardiopulmonary findings CT interpreted by me (1pt min.). @ -None done U/S interpreted by me (1pt. min.). @ -None done What testing was considered but not performed or refused? (CT, X-rays, U/S, labs)? Why? @ -None What meds were considered but not given or refused? Why? @ -None Did you discuss the management of the patient with other professionals (professionals i.e. [facility], [employer]ER, lab, RT, psych nurse, social work instructor, squad leader, teacher, food safety officer, telephonic nurse case manager)? Give summary @ -Case discussed with Dr. Jefferson Was smoking cessation discussed for >3mins.? @ -No Was critical care preformed (if so, how long)? @ -yes 35 min Were there social determinants of health that impacted care today? How? (Homelessness, low income, unemployed, alcoholism, drug addiction, transportation, low edu. Level, literacy, decrease access to med. care, alf, rehab)? @ -No Was there de-escalation of care discussed even if they declined (Discuss DNR or withdrawal of care, Hospice)? DNR status @ -No What co-morbidities impacted this encounter? (DM, HTN, Smoking, COPD, CAD, Cancer, CVA, ARF, Chemo, Hep., AIDS, mental health diagnosis, sleep apnea, morbid obesity)? @ -[COPD, CML, chronic anemia Was patient admitted / discharged? Hospital course, mention meds given and route, prescriptions, significant lab abnormalities, going to OR and other pertinent info. @ 63-year-old female with history of CML and anemia presents with generalized weakness and fatigue. Patient is pale. Vital signs are stable. She is in sinus rhythm. Laboratory studies reveal significant abnormality in CBC including leukocytosis, anemia with hemoglobin 4.5 and thrombocytosis. Patient transfused 2 units and repeat hemoglobin will be obtained. Transfusion pending at the time of this dictation. I discussed case with Dr. Jefferson who will admit. Both general surgery and hematology placed on consult. Undiagnosed new problem with uncertain prognosis? @ -No Drug Therapy requiring intensive monitoring for toxicity (Heparin, Nitro, Insulin, Cardizem)? @ -No Were any procedures done? @ -No Diagnosis/symptom? @Symptomatic anemia Acute, or Chronic, or Acute on Chronic? @ -Acute on chronic Uncomplicated (without systemic symptoms) or Complicated (systemic symptoms)? @ -Default Side effects of treatment? @ -No Exacerbation, Progression, or Severe Exacerbation? @ -No Poses a threat to life or bodily function? How? (Chest pain, USA, NV, pneumonia, PE, COPD, DKA, ARF, appy, cholecystitis, CVA, Diverticulitis, Homicidal, Suicidal, threat to staff... and all critical care pts) @ -Yes, congestive heart failure, hypovolemic shock (Reyes Mejia) - Lab Data Lab Results 12/26/23 12/26/23 12/26/23 Range/Units 17:12 17:12 17:12 WBC 15.8 H (3.8-10.6) k/uL RBC 1.73 L (3.80-5.40) m/uL Hgb 4.5 L* D (11.4-16.0) gm/dL Hct 16.6 L* (34.0-46.0) % MCV 96.0 (80.0-100.0) fL MCH 25.9 (25.0-35.0) pg MCHC 27.0 L (31.0-37.0) g/dL RDW 29.0 H (11.5-15.5) % Plt Count 2317 H* (150-450) k/uL MPV 7.6 Neutrophils % (Manual) 80 % Band Neuts % (Manual) 2 % Lymphocytes % (Manual) 7 % Monocytes % (Manual) 8 % Metamyelocytes % 2 % Myelocytes % 2 % Neutrophils # (Manual) 12.90 H (1.3-7.7) k/uL Lymphocytes # (Manual) 1.11 (1.0-4.8) k/uL Monocytes # (Manual) 1.26 H (0-1.0) k/uL Metamyelocytes # (Man) 0.32 H (0) k/uL Myelocytes # (Manual) 0.32 H (0) k/uL Nucleated RBCs 2 H (0-0) /100 WBC Manual Slide Review Performed Toxic Vacuolation Present Polychromasia Present Hypochromasia Marked Poikilocytosis Slight Anisocytosis Marked Microcytosis Slight Macrocytosis Marked A PT 11.0 (10.0-12.5) sec INR 1.0 (<1.2) APTT 22.5 (22.0-30.0) sec Sodium 136 L (137-145) mmol/L Potassium 4.4 (3.5-5.1) mmol/L Chloride 109 H (98-107) mmol/L Carbon Dioxide 23 (22-30) mmol/L Anion Gap 4 mmol/L BUN 28 H (7-17) mg/dL Creatinine 0.91 (0.52-1.04) mg/dL Est GFR (CKD-EPI)AfAm 79 (>60 ml/min/1.73 sqM) Est GFR (CKD-EPI)NonAf 68 (>60 ml/min/1.73 sqM) Glucose 87 (74-99) mg/dL Plasma Lactic Acid Avel (0.7-2.0) mmol/L Calcium 9.0 (8.4-10.2) mg/dL Magnesium 1.8 (1.6-2.3) mg/dL Total Bilirubin 0.4 (0.2-1.3) mg/dL AST 63 H (14-36) U/L ALT 25 (4-34) U/L Alkaline Phosphatase 44 (38-126) U/L Troponin I (0.000-0.034) ng/mL Total Protein 6.0 L (6.3-8.2) g/dL Albumin 3.9 (3.5-5.0) g/dL 12/26/23 12/26/23 Range/Units 17:12 17:12 WBC (3.8-10.6) k/uL RBC (3.80-5.40) m/uL Hgb (11.4-16.0) gm/dL Hct (34.0-46.0) % MCV (80.0-100.0) fL MCH (25.0-35.0) pg MCHC (31.0-37.0) g/dL RDW (11.5-15.5) % Plt Count (150-450) k/uL MPV Neutrophils % (Manual) % Band Neuts % (Manual) % Lymphocytes % (Manual) % Monocytes % (Manual) % Metamyelocytes % % Myelocytes % % Neutrophils # (Manual) (1.3-7.7) k/uL Lymphocytes # (Manual) (1.0-4.8) k/uL Monocytes # (Manual) (0-1.0) k/uL Metamyelocytes # (Man) (0) k/uL Myelocytes # (Manual) (0) k/uL Nucleated RBCs (0-0) /100 WBC Manual Slide Review Toxic Vacuolation Polychromasia Hypochromasia Poikilocytosis Anisocytosis Microcytosis Macrocytosis PT (10.0-12.5) sec INR (<1.2) APTT (22.0-30.0) sec Sodium (137-145) mmol/L Potassium (3.5-5.1) mmol/L Chloride (98-107) mmol/L Carbon Dioxide (22-30) mmol/L Anion Gap mmol/L BUN (7-17) mg/dL Creatinine (0.52-1.04) mg/dL Est GFR (CKD-EPI)AfAm (>60 ml/min/1.73 sqM) Est GFR (CKD-EPI)NonAf (>60 ml/min/1.73 sqM) Glucose (74-99) mg/dL Plasma Lactic Acid Avel 1.3 (0.7-2.0) mmol/L Calcium (8.4-10.2) mg/dL Magnesium (1.6-2.3) mg/dL Total Bilirubin (0.2-1.3) mg/dL AST (14-36) U/L ALT (4-34) U/L Alkaline Phosphatase (38-126) U/L Troponin I <0.012 (0.000-0.034) ng/mL Total Protein (6.3-8.2) g/dL Albumin (3.5-5.0) g/dL Critical Care Time Critical Care Time: Yes Total Critical Care Time: 35 <Reyes Mejia - Last Filed: 12/26/23 18:32> Disposition <Samira Abdi - Last Filed: 12/26/23 16:27> Is patient prescribed a controlled substance at d/c from ED?: No Time of Disposition: 18:31 <Reyes Mejia - Last Filed: 12/26/23 18:32> Clinical Impression: Anemia, Thrombocytosis, Chronic myeloid leukemia (CML), BCR/ABL-positive Disposition: ADMITTED IP TO THIS HOSP Condition: Serious Referrals: Katja Jefferson DO [Primary Care Provider] - 1-2 days
[2023-12-26 17:29] LABS: Anisocytosis Marked; Hypochromasia Marked; MCH 25.9 pg (25.0-35.0); Macrocytosis Marked; Mean Platelet Volume 7.6; Microcytosis Slight; Poikilocytosis Slight; RBC 1.73 m/uL (3.80-5.40)
[2023-12-26 17:36] LABS: Partial Thromboplastin Time 22.5 sec (22.0-30.0)
[2023-12-26 17:38] LABS: HCT 16.6 % (34.0-46.0); HGB 4.5 gm/dL (11.4-16.0)
[2023-12-26 17:43] LABS: ALT 25 U/L (4-34); African American GFR (CKD) 79 (>60 ml/min/1.73 sqM); Albumin 3.9 g/dL (3.5-5.0); Anion Gap 4 mmol/L; Blood Urea Nitrogen 28 mg/dL (7-17); Carbon Dioxide 23 mmol/L (22-30); Chloride 109 mmol/L (98-107); Glucose 87 mg/dL (74-99); Non-African American GFR(CKD) 68 (>60 ml/min/1.73 sqM); Sodium 136 mmol/L (137-145); Total Bilirubin 0.4 mg/dL (0.2-1.3)
[2023-12-26 17:44] LABS: AST 63 U/L (14-36); Alkaline Phosphatase 44 U/L (38-126); Magnesium 1.8 mg/dL (1.6-2.3); Potassium 4.4 mmol/L (3.5-5.1)
[2023-12-26 17:59] LABS: Band Neutrophils % 2 %; Lymphocytes # (M) 1.11 k/uL (1.0-4.8); Metamyelocytes # (M) 0.32 k/uL (0); Metamyelocytes % 2 %; Monocytes # (M) 1.26 k/uL (0-1.0); Myelocytes # (M) 0.32 k/uL (0); Myelocytes % 2 %; Neutrophils % (M) 80 %; Nucleated Red Blood Cells 2 /100 WBC (0-0); Total Cells Counted 200; WBC 15.8 k/uL (3.8-10.6)
[2023-12-26 18:01] LABS: Polychromasia Present
[2023-12-26 18:02] LABS: Toxic Vacuolation Present
[2023-12-26 18:04] LABS: Platelet Count 2317 k/uL (150-450)
--- NOTE | 2023-12-26 18:04 | XR ---
EXAMINATION TYPE: XR chest 2V DATE OF EXAM: 12/26/2023 COMPARISON: 11/04/2023 INDICATION: Weakness TECHNIQUE: Frontal and lateral views of the chest are obtained. FINDINGS: The heart size is normal. The pulmonary vasculature is normal. The lungs are clear. Inflation is present. Correlate for COPD. Findings chronic rotator cuff tear of the right shoulder is likely present. IMPRESSION: 1. No acute pulmonary process. 2. COPD
[2023-12-26] MEDS ORDERED: NALOXONE 0.4 MG/ML 1 ML VIAL IV PRN (18:32)
[2023-12-26] MEDS: PANTOPRAZOLE 40 MG/10 ML VIAL IVP STA (18:33)
[2023-12-26] MEDS: HYDROmorphone 0.5 MG/0.5 ML SYRINGE IVP PRN (21:03)
[2023-12-27 07:55] LABS: Appearance,Urine Cloudy (Clear); Bacteria,Urine Many /hpf; Bilirubin,Urine Negative (Negative); Blood,Urine Negative (Negative); Budding Yeast,Urine Few /hpf; Color,Urine Colorless; Glucose,Urine (UA) Negative (Negative); Ketones,Urine Negative (Negative); Leukocyte Esterase,Urine Large (Negative); Mucus,Urine Rare /hpf; Nitrite,Urine Positive (Negative); Protein,Urine Negative (Negative); RBC,Urine >182 /hpf (0-5); Specific Gravity,Urine 1.013 (1.001-1.035); Squamous Epithelial Cell,Urine 1 /hpf (0-4); Urobilinogen,Urine <2.0 mg/dL (<2.0); WBC,Urine 169 /hpf (0-5)
[2023-12-27] MEDS: PANTOPRAZOLE 40 MG/10 ML VIAL IV SCH (08:09)
[2023-12-27] MEDS ORDERED: IOPAMIDOL CONTRAST (ORAL USE) VIAL PO PRN (09:33)
[2023-12-27] MEDS ORDERED: NON FORMULARY DRUG (Omeprazole 20 MG Capsule.Dr) PO SCH (09:45)
--- NOTE | 2023-12-27 11:24 | CT ---
EXAMINATION TYPE: CT abdomen pelvis w con DATE OF EXAM: 12/27/2023 COMPARISON: 03/10/2023 HISTORY: abd pain CT DLP: 417.5 mGycm Automated exposure control for dose reduction was used. CONTRAST: CT scan of the abdomen pelvis is performed with IV Contrast, patient injected with 100 mL of Isovue 3 00. FINDINGS- LUNG BASES- emphysematous changes with basilar scarring or atelectasis. LIVER/GB- there is intrahepatic biliary ductal dilation. Extrahepatic dilation of the bile duct. Lo w-attenuation liver suggestive of hepatic steatosis. Hypodensities in the liver too small to characte rize but likely related to simple cysts. PANCREAS- pancreatic duct is dilated. No definite inflammation. SPLEEN- accessory splenule. Spleen measures 17 cm. ADRENALS- thickening of left adrenal gland likely related to benign adenoma or hyperplasia. KIDNEYS/BLADDER-nonobstructing 3 mm right renal calculus. too Small to characterize lower pole hypodensity most likely related to cysts. Bladder nondistended a nd limited. BOWEL- bowel gas pattern nonspecific with no definite obstruction. Appendix not seen with certainty. LYMPH NODES- No greater than 1cm abdominal or pelvic lymph nodes are appreciated. OSSEOUS STRUCTURES- altered level hypertrophic and degenerative changes spine. Endplate compression fracture L3 mucosal prior exam. OTHER- aorta of normal caliber. IMPRESSION- 1. There is stable intra and extrahepatic biliary dilation. Mild dilation of the pancreatic duct. Cou ld be post cholecystectomy related. Correlate with MRI of the abdomen with MRCP as clinically warrant ed. 2. Nonobstructing right renal calculus. 3. There is a mild approximately 10% superior endplate compression fracture L3 of indeterminate age. Correlate clinically. 4. The spleen is enlarged measuring 17 cm.
[2023-12-27] MEDS: GABAPENTIN 400 MG CAP PO SCH (11:39)
[2023-12-27] MEDS: buPROPion XL 300 MG TAB.ER.24H PO SCH (11:39)
[2023-12-27] MEDS: SPIRONOLACTONE 25 MG TAB PO SCH (11:40)
[2023-12-27] MEDS: SERTRALINE 50 MG TAB PO SCH (11:40)
[2023-12-27 11:45] LABS: Anisocytosis Marked; HCT 22.4 % (34.0-46.0); Hypochromasia Marked; MCH 24.4 pg (25.0-35.0); MCHC 25.6 g/dL (31.0-37.0); MCV 95.2 fL (80.0-100.0); Macrocytosis Moderate; Mean Platelet Volume 7.3; Microcytosis Slight; Poikilocytosis Moderate; RBC 2.35 m/uL (3.80-5.40); WBC 14.8 k/uL (3.8-10.6)
[2023-12-27 11:55] LABS: Prothrombin Time 10.9 sec (10.0-12.5)
[2023-12-27 11:59] LABS: ALT 19 U/L (4-34); AST 34 U/L (14-36); African American GFR (CKD) 86 (>60 ml/min/1.73 sqM); Albumin 3.3 g/dL (3.5-5.0); Alkaline Phosphatase 49 U/L (38-126); Anion Gap 3 mmol/L; Blood Urea Nitrogen 15 mg/dL (7-17); Carbon Dioxide 23 mmol/L (22-30); Chloride 109 mmol/L (98-107); Glucose 107 mg/dL (74-99); Lipase 284 U/L (23-300); Magnesium 1.8 mg/dL (1.6-2.3); Non-African American GFR(CKD) 75 (>60 ml/min/1.73 sqM); Potassium 4.2 mmol/L (3.5-5.1); Sodium 135 mmol/L (137-145); Total Bilirubin 0.5 mg/dL (0.2-1.3); Total Protein 5.6 g/dL (6.3-8.2)
[2023-12-27 12:23] LABS: RDW 26.3 % (11.5-15.5)
[2023-12-27 12:24] LABS: Platelet Count 2278 k/uL (150-450)
[2023-12-27 12:26] LABS: HGB 5.7 gm/dL (11.4-16.0)
[2023-12-27 13:10] LABS: Lymphocytes # (M) 0.89 k/uL (1.0-4.8); Monocytes # (M) 1.33 k/uL (0-1.0); Neutrophils # (M) 12.58 k/uL (1.3-7.7); Neutrophils % (M) 85 %; Nucleated Red Blood Cells 0 /100 WBC (0-0); Total Cells Counted 100
[2023-12-27 13:11] LABS: Poikilocytosis (M) Present; Polychromasia Present; RBC Fragments Present
[2023-12-27] MEDS: SUCRALFATE 1 GM TAB PO SCH (13:22)
[2023-12-27] MEDS: HYDROcodone/APAP 7.5-325MG 1 EACH TAB PO PRN (13:22)
--- NOTE | 2023-12-27 13:32 | P.GSCN ---
History of Present Illness Consult date: 12/27/23 History of present illness: CHIEF COMPLAINT: weakness HISTORY OF PRESENT ILLNESS: this is a 63-year-old female with known history of CML and chronic anemia. Patient presents to hospital with complaints of weakness and feels that her hemoglobin might be low. She was found have evidence of a hemoglobin of 4.5. She is receiving 2 units of blood. She's had no active bleeding. Denies any blood in her stools are only melanotic stools. Denies any nausea vomiting. She reports having diarrhea. She does complain of stomach discomfort. Patient also followed by hematology. Her last EGD was in May 2023 that revealed gastritis. She did have a colonoscopy and EGD in August 2022 that had revealed hemorrhagic gastritis, diverticulosis and hemorrhoids. history of gastric ulcer.She did have some hypotension on admission now improved. Patient seen and examined with Dr. siu PAST MEDICAL HISTORY: Gastric Ulcer. GERD/Reflux, Pneumonia, Rheumatoid Arthritis (RA),COPD, leukoplakia of the vocal cords, chronic shoulder back and neck pain, acid reflux, depression, raynaud's syndrome. takes aldactone for hair loss. CML PAST SURGICAL HISTORY: Back Surgery, Cholecystectomy, Hernia Repair, Orthopedic Surgery, Tonsillectomy, arthroscopic shoulder, vocal cord scraping, dariana fundoplasty, CERVICAL FUSSION, recent EGD, colonoscopy. VENTRAL HERNIA. MEDICATIONS: See below ALLERGIES: See below SOCIAL HISTORY: No illicit drug use. REVIEW OF SYSTEMS: CONSTITUTIONAL: Denies fever or chills. HEENT: Denies blurred vision, vision changes, or eye pain. Denies hemoptysis CARDIOVASCULAR: Denies chest pain or pressure. RESPIRATORY: No shortness of breath. GASTROINTESTINAL: See HPI for pertinent findings HEMATOLOGIC: Denies bleeding disorders. GENITOURINARY: Denies any blood in urine or increased urinary frequency. SKIN: Denies pruitis. Denies rash. PHYSICAL EXAM: VITAL SIGNS: Reviewed GENERAL: Well-developed in no acute distress. ABDOMEN: Soft. Nondistended. NEUROLOGIC: Alert and oriented. Cranial nerves II through XII grossly intact. LABORATORY DATA: WBC 14.8 Hgb4.5 up to 5.7after 1 unit platelets 2278 Hgb 5.4 on 11/04/2023 Hgb 10/04/2023 6.4 INR 1.0 Sodium 135 potassium 4.2 creatinine 0.85 IMAGING: computed tomography scan abdomen and pelvis reports stable intra-and extrahepatic biliary dilation. Mild dilation of the pancreatic duct. Could be post cholecystectomy related. obstructing right renal calculus. mild tempera ture and plate compression fracture indeterminate age. enlarged spleen 17 cm ASSESSMENT: 1. Chronic anemia 2. History of CML 3. Gastritis on Last EGD in May 2023 PLAN: -No plans for endoscopy at this time. Patient has no signs of active bleeding. -Await further recommendations per hematology/oncology -Agree with blood transfusions -continue to monitor hemoglobin -continue to monitor for any signs or symptoms of bleeding Physician Filling Machine Operator note has been reviewed by physician. Signing provider agrees with the documented findings, assessment, and plan of care. Past Medical History Past Medical History: GERD/Reflux, Pneumonia, Rheumatoid Arthritis (RA) Additional Past Medical History / Comment(s): IP ADMISSION FORGASTRIC ULCER IN MAY 2022 WITH HIGH PLATELET & WHITE COUNT THROMBYTOSIS- (SEES DR REBOLLEDO). COPD, leukoplakia of the vocal cords, chronic shoulder back and neck pain, acid reflux, depression, raynaud's syndrome. takes aldactone for hair loss. CML History of Any Multi-Drug Resistant Organisms: MRSA Year Discovered:: 05/03/19 MDRO Source:: MRSA FACE Past Surgical History: Back Surgery, Cholecystectomy, Hernia Repair, Orthopedic Surgery, Tonsillectomy Additional Past Surgical History / Comment(s): arthroscopic shoulder, vocal cord scraping, dariana fundoplasty, CERVICAL FUSSION, recent EGD, colonoscopy. VENTRAL HERNIA. Past Anesthesia/Blood Transfusion Reactions: Blood Transfusion Reaction Additional Past Anesthesia/Blood Transfusion Reaction / Comm: TRANSFUSIONS WITH GASTRIC ULCER, no previous reactions Past Psychological History: Anxiety, Depression Smoking Status: Current some day smoker Past Alcohol Use History: None Reported Past Drug Use History: None Reported - Past Family History Mother History Unknown: Yes Family Medical History: Cancer Father Family Medical History: Unable to Obtain Medications and Allergies Home Medications Medication Instructions Recorded Confirmed Type Gabapentin 800 mg PO QID 05/01/14 12/26/23 History Topiramate 100 mg PO BID 05/01/14 12/26/23 History HYDROcodone/APAP 7.5-325MG [[place] 1 tab PO QID 03/11/16 12/26/23 History 7.5-325] Baclofen [Lioresal] 20 mg PO HS 07/02/17 12/26/23 History Sertraline [Zoloft] 50 mg PO DAILY 07/02/17 12/26/23 History buPROPion XL [Wellbutrin XL] 300 mg PO DAILY 07/02/17 12/26/23 History Multivit with Calcium,Iron,Min 1 tab PO DAILY 10/21/19 12/26/23 History [Women's Multivitamin] Spironolactone [Aldactone] 25 mg PO DAILY 12/21/21 12/26/23 History Aspirin [Adult Low Dose Aspirin EC] 81 mg PO DAILY 06/07/22 12/26/23 History Omeprazole [PriLOSEC] 20 mg PO AC-BRKFST #90 cap 06/09/22 12/26/23 Rx Clindamycin Phosphate 1 applic TOPICAL BID 01/16/23 12/26/23 History Tretinoin [Tretinoin 0.025%] 1 applic TOPICAL HS 01/16/23 12/26/23 History Lactulose [Cephulac] 30 gm PO BID PRN #600 ml 01/20/23 12/26/23 Rx Albuterol Inhaler [Ventolin Hfa 1 puff INHALATION RT-Q6H PRN 11/05/23 12/26/23 History Inhaler] Imatinib Mesylate 400 mg PO W/SUPPER 12/26/23 12/26/23 History Ondansetron [Zofran] 4 mg PO DAILY PRN 12/26/23 12/26/23 History hydrOXYzine HCL [Atarax] 25 mg PO HS 12/26/23 12/26/23 History Allergies Allergy/AdvReac Type Severity Reaction Status Date / Time metronidazole [From Flagyl] Allergy Itching, Verified 12/26/23 19:13 BURNING OF SKIN Surgical - Exam Vital Signs Temp Pulse Resp BP Pulse Ox 97.7 F 98 18 122/79 100 12/26/23 15:36 12/26/23 15:36 12/26/23 15:36 12/26/23 15:36 12/26/23 15:36 Results - Labs 12/27/23 11:27 12/27/23 11:27 Abnormal Lab Results - Last 24 Hours (Table) 12/26/23 12/26/23 12/26/23 Range/Units 17:12 17:12 18:25 WBC 15.8 H (3.8-10.6) k/uL RBC 1.73 L (3.80-5.40) m/uL Hgb 4.5 L* D (11.4-16.0) gm/dL Hct 16.6 L* (34.0-46.0) % MCHC 27.0 L (31.0-37.0) g/dL RDW 29.0 H (11.5-15.5) % Plt Count 2317 H* (150-450) k/uL Neutrophils # (Manual) 12.90 H (1.3-7.7) k/uL Monocytes # (Manual) 1.26 H (0-1.0) k/uL Metamyelocytes # (Man) 0.32 H (0) k/uL Myelocytes # (Manual) 0.32 H (0) k/uL Nucleated RBCs 2 H (0-0) /100 WBC Macrocytosis Marked A Sodium 136 L (137-145) mmol/L Chloride 109 H (98-107) mmol/L BUN 28 H (7-17) mg/dL AST 63 H (14-36) U/L Total Protein 6.0 L (6.3-8.2) g/dL Urine Appearance (Clear) Urine Nitrite (Negative) Ur Leukocyte Esterase (Negative) Urine RBC (0-5) /hpf Urine WBC (0-5) /hpf Urine WBC Clumps (None) /hpf Urine Bacteria (None) /hpf Urine Mucus (None) /hpf Urine Yeast (Budding) (None) /hpf Crossmatch See Detail 12/27/23 Range/Units 07:30 WBC (3.8-10.6) k/uL RBC (3.80-5.40) m/uL Hgb (11.4-16.0) gm/dL Hct (34.0-46.0) % MCHC (31.0-37.0) g/dL RDW (11.5-15.5) % Plt Count (150-450) k/uL Neutrophils # (Manual) (1.3-7.7) k/uL Monocytes # (Manual) (0-1.0) k/uL Metamyelocytes # (Man) (0) k/uL Myelocytes # (Manual) (0) k/uL Nucleated RBCs (0-0) /100 WBC Macrocytosis Sodium (137-145) mmol/L Chloride (98-107) mmol/L BUN (7-17) mg/dL AST (14-36) U/L Total Protein (6.3-8.2) g/dL Urine Appearance Cloudy H (Clear) Urine Nitrite Positive H (Negative) Ur Leukocyte Esterase Large H (Negative) Urine RBC >182 H (0-5) /hpf Urine WBC 169 H (0-5) /hpf Urine WBC Clumps Few H (None) /hpf Urine Bacteria Many H (None) /hpf Urine Mucus Rare H (None) /hpf Urine Yeast (Budding) Few H (None) /hpf Crossmatch Diabetes panel 12/26/23 Range/Units 17:12 Sodium 136 L (137-145) mmol/L Potassium 4.4 (3.5-5.1) mmol/L Chloride 109 H (98-107) mmol/L Carbon Dioxide 23 (22-30) mmol/L BUN 28 H (7-17) mg/dL Creatinine 0.91 (0.52-1.04) mg/dL Glucose 87 (74-99) mg/dL Calcium 9.0 (8.4-10.2) mg/dL AST 63 H (14-36) U/L ALT 25 (4-34) U/L Alkaline Phosphatase 44 (38-126) U/L Total Protein 6.0 L (6.3-8.2) g/dL Albumin 3.9 (3.5-5.0) g/dL Calcium panel 12/26/23 Range/Units 17:12 Calcium 9.0 (8.4-10.2) mg/dL Albumin 3.9 (3.5-5.0) g/dL Pituitary panel 12/26/23 Range/Units 17:12 Sodium 136 L (137-145) mmol/L Potassium 4.4 (3.5-5.1) mmol/L Chloride 109 H (98-107) mmol/L Carbon Dioxide 23 (22-30) mmol/L BUN 28 H (7-17) mg/dL Creatinine 0.91 (0.52-1.04) mg/dL Glucose 87 (74-99) mg/dL Calcium 9.0 (8.4-10.2) mg/dL Adrenal panel 08/28/24 Range/Units 17:12 Sodium 136 L (137-145) mmol/L Potassium 4.4 (3.5-5.1) mmol/L Chloride 109 H (98-107) mmol/L Carbon Dioxide 23 (22-30) mmol/L BUN 28 H (7-17) mg/dL Creatinine 0.91 (0.52-1.04) mg/dL Glucose 87 (74-99) mg/dL Calcium 9.0 (8.4-10.2) mg/dL Total Bilirubin 0.4 (0.2-1.3) mg/dL AST 63 H (14-36) U/L ALT 25 (4-34) U/L Alkaline Phosphatase 44 (38-126) U/L Total Protein 6.0 L (6.3-8.2) g/dL Albumin 3.9 (3.5-5.0) g/dL
--- NOTE | 2023-12-27 13:51 | P.CONS ---
History of Present Illness - Reason for Consult Consult date: 12/27/23 CLL, anemia Requesting physician: Reyes Mejia - Chief Complaint severe anemia, abd pain - History of Present Illness Ms. Pickard is a 63-year-old female who treats with Dr. Dawkins, on Gleevec for CML intermittently-she reports that for the last 2 weeks she has been taking Gleevec at the full dose for 2 weeks. She presents with severe anemia hemoglobin 4.5, severe weakness, shortness of breath with exertion as well as palpitations with moving. Her abdominal pain is in the epigastric area, radiating around the left back, positive for nausea, denies vomiting, is asking for food. No fever, chills, chest pain, or bleeding to report. She has been seen on consult in May, July and October 2023 with similar symptoms. Had EGD on 06/11 which showed no active GI bleed. own. WBC 15.8, platelets 2317. 2 unit PRBCs ordered, pending transfusion. UA suspicious. Review of Systems 14 point ROS is negative except as stated in HPI Past Medical History Past Medical History: GERD/Reflux, Pneumonia, Rheumatoid Arthritis (RA) Additional Past Medical History / Comment(s): IP ADMISSION FORGASTRIC ULCER IN MAY 2022 WITH HIGH PLATELET & WHITE COUNT THROMBYTOSIS- (SEES DR DAWKINS). COPD, leukoplakia of the vocal cords, chronic shoulder back and neck pain, acid reflux, depression, raynaud's syndrome. takes aldactone for hair loss. CML History of Any Multi-Drug Resistant Organisms: MRSA Year Discovered:: 05/03/19 MDRO Source:: MRSA FACE Past Surgical History: Back Surgery, Cholecystectomy, Hernia Repair, Orthopedic Surgery, Tonsillectomy Additional Past Surgical History / Comment(s): arthroscopic shoulder, vocal cord scraping, dariana fundoplasty, CERVICAL FUSSION, recent EGD, colonoscopy. VENTRAL HERNIA. Past Anesthesia/Blood Transfusion Reactions: Blood Transfusion Reaction Additional Past Anesthesia/Blood Transfusion Reaction / Comm: TRANSFUSIONS WITH GASTRIC ULCER, no previous reactions Past Psychological History: Anxiety, Depression Smoking Status: Current some day smoker Past Alcohol Use History: None Reported Past Drug Use History: None Reported - Past Family History Mother History Unknown: Yes Family Medical History: Cancer Father Family Medical History: Unable to Obtain Medications and Allergies Home Medications Medication Instructions Recorded Confirmed Type Gabapentin 800 mg PO QID 05/01/14 12/26/23 History Topiramate 100 mg PO BID 05/01/14 12/26/23 History HYDROcodone/APAP 7.5-325MG [[place] 1 tab PO QID 03/11/16 12/26/23 History 7.5-325] Baclofen [Lioresal] 20 mg PO HS 07/02/17 12/26/23 History Sertraline [Zoloft] 50 mg PO DAILY 07/02/17 12/26/23 History buPROPion XL [Wellbutrin XL] 300 mg PO DAILY 07/02/17 12/26/23 History Multivit with Calcium,Iron,Min 1 tab PO DAILY 10/21/19 12/26/23 History [Women's Multivitamin] Spironolactone [Aldactone] 25 mg PO DAILY 12/21/21 12/26/23 History Aspirin [Adult Low Dose Aspirin EC] 81 mg PO DAILY 06/07/22 12/26/23 History Omeprazole [PriLOSEC] 20 mg PO AC-BRKFST #90 cap 06/09/22 12/26/23 Rx Clindamycin Phosphate 1 applic TOPICAL BID 01/16/23 12/26/23 History Tretinoin [Tretinoin 0.025%] 1 applic TOPICAL HS 01/16/23 12/26/23 History Lactulose [Cephulac] 30 gm PO BID PRN #600 ml 01/20/23 12/26/23 Rx Albuterol Inhaler [Ventolin Hfa 1 puff INHALATION RT-Q6H PRN 11/05/23 12/26/23 History Inhaler] Imatinib Mesylate 400 mg PO W/SUPPER 12/26/23 12/26/23 History Ondansetron [Zofran] 4 mg PO DAILY PRN 12/26/23 12/26/23 History hydrOXYzine HCL [Atarax] 25 mg PO HS 12/26/23 12/26/23 History Allergies Allergy/AdvReac Type Severity Reaction Status Date / Time metronidazole [From Flagyl] Allergy Itching, Verified 12/26/23 19:13 BURNING OF SKIN Physical Exam Vitals: Vital Signs Temp Pulse Resp BP Pulse Ox 12/27/23 11:27 98.3 F 86 22 115/70 100 12/27/23 07:24 98.0 F 120 H 18 98/60 100 12/27/23 06:33 76 18 92/60 100 12/27/23 04:44 98.9 F 90 18 99/54 95 12/26/23 21:39 98.7 F 105 H 18 104/66 98 12/26/23 21:02 98.0 F 82 18 103/65 97 12/26/23 19:49 97.9 F 85 18 112/65 98 12/26/23 15:36 97.7 F 98 18 122/79 100 Intake and Output 12/26/23 12/27/23 12/27/23 22:59 06:59 14:59 Other: Weight 45.813 kg - Constitutional General appearance: cooperative, mild distress, thin - EENT Eyes: anicteric sclerae, EOMI ENT: hearing grossly normal, normal oropharynx - Neck Neck: no lymphadenopathy - Respiratory Respiratory: bilateral: CTA - Cardiovascular Rhythm: regular Heart sounds: normal: S1, S2 Abnormal Heart Sounds: no systolic murmur, no diastolic murmur, no rub, no S3 Gallop, no S4 Gallop, no click, no other leg Peripheral Edema: bilateral: None - Gastrointestinal General gastrointestinal: no absent bowel sounds, no decreased bowel sounds, no distended, no hepatomegaly, no hyperactive bowel sounds, normal bowel sounds, no organomegaly, no rigid, no scaphoid, soft, no splenomegaly, tenderness, no umbilical hernia, no ventral hernia - Integumentary Integumentary: pale - Neurologic Neurologic: CNII-XII intact - Musculoskeletal Musculoskeletal: generalized weakness - Psychiatric Psychiatric: A&O x's 3, appropriate affect, intact judgment & insight Results CBC & Chem 7: 12/27/23 11:27 12/27/23 11:27 Labs: Abnormal Lab Results - Last 24 Hours (Table) 12/26/23 12/26/23 12/26/23 Range/Units 17:12 17:12 18:25 WBC 15.8 H (3.8-10.6) k/uL RBC 1.73 L (3.80-5.40) m/uL Hgb 4.5 L* D (11.4-16.0) gm/dL Hct 16.6 L* (34.0-46.0) % MCHC 27.0 L (31.0-37.0) g/dL RDW 29.0 H (11.5-15.5) % Plt Count 2317 H* (150-450) k/uL Neutrophils # (Manual) 12.90 H (1.3-7.7) k/uL Monocytes # (Manual) 1.26 H (0-1.0) k/uL Metamyelocytes # (Man) 0.32 H (0) k/uL Myelocytes # (Manual) 0.32 H (0) k/uL Nucleated RBCs 2 H (0-0) /100 WBC Macrocytosis Marked A Sodium 136 L (137-145) mmol/L Chloride 109 H (98-107) mmol/L BUN 28 H (7-17) mg/dL AST 63 H (14-36) U/L Total Protein 6.0 L (6.3-8.2) g/dL Urine Appearance (Clear) Urine Nitrite (Negative) Ur Leukocyte Esterase (Negative) Urine RBC (0-5) /hpf Urine WBC (0-5) /hpf Urine WBC Clumps (None) /hpf Urine Bacteria (None) /hpf Urine Mucus (None) /hpf Urine Yeast (Budding) (None) /hpf Crossmatch See Detail 12/27/23 Range/Units 07:30 WBC (3.8-10.6) k/uL RBC (3.80-5.40) m/uL Hgb (11.4-16.0) gm/dL Hct (34.0-46.0) % MCHC (31.0-37.0) g/dL RDW (11.5-15.5) % Plt Count (150-450) k/uL Neutrophils # (Manual) (1.3-7.7) k/uL Monocytes # (Manual) (0-1.0) k/uL Metamyelocytes # (Man) (0) k/uL Myelocytes # (Manual) (0) k/uL Nucleated RBCs (0-0) /100 WBC Macrocytosis Sodium (137-145) mmol/L Chloride (98-107) mmol/L BUN (7-17) mg/dL AST (14-36) U/L Total Protein (6.3-8.2) g/dL Urine Appearance Cloudy H (Clear) Urine Nitrite Positive H (Negative) Ur Leukocyte Esterase Large H (Negative) Urine RBC >182 H (0-5) /hpf Urine WBC 169 H (0-5) /hpf Urine WBC Clumps Few H (None) /hpf Urine Bacteria Many H (None) /hpf Urine Mucus Rare H (None) /hpf Urine Yeast (Budding) Few H (None) /hpf Crossmatch Assessment and Plan (1) Symptomatic anemia Current Visit: Yes Status: Acute Priority: High Code(s): D64.9 - ANEMIA, UNSPECIFIED SNOMED Code(s): 874688377 (2) Chronic myeloid leukemia (CML), BCR/ABL-positive Current Visit: Yes Status: Chronic Priority: Medium Code(s): C92.10 - C HRONIC MYELOID LEUK, BCR/ABL-POSITIVE, NOT ACHIEVE REMIS SNOMED Code(s): 28309580 (3) Essential thrombocythemia Current Visit: Yes Status: Chronic Priority: Medium Code(s): D47.3 - ESSENTIAL (HEMORRHAGIC) THROMBOCYTHEMIA SNOMED Code(s): 798178614 Plan: Symptomatic anemia -Hemoglobin 4.5. 2 units PRBCs ordered. Pending transfusion. CML -Patient is on Gleevec. She has tried full dose for the last couple of weeks but, seems to be somewhat intolerant. -Hold Gleevec while patient is acutely ill and inpatient. Thrombocytosis -Chronic MPN/ET -Patient is not on any treatment for the same as the count improves on treatment. -No anticoagulation currently because of severely low Hgb Abdominal pain, acute on chronic -CT of the abdomen and pelvis stat. -Surgical consult -Carafate ordered. Doctor attests: I performed a history and physical examination of this patient, developed impression and plan of care. Discussed with dictator. I agree with dictators note, documented as a scribe.
[2023-12-27 15:18] VITALS: BMI 16.8
--- NOTE | 2023-12-27 15:23 | P.HPIM ---
History of Present Illness H&P Date: 12/27/23 Chief Complaint: Anemia This is a 63-year-old female with past medical history significant for CML on Gleevec, multiple workups within the last year for anemia, follows regularly with Dr. Dawkins, presented to the ER with progressive symptomatic anemia, weakness, exertional dyspnea, fatigue, dizziness , nausea ,no vomiting over the last couple of days with abdominal cramping and worsening chronic back pain radiating down to bilateral flanks. Denies fevers or chills. Hemoglobin 4.5, platelets 2317. Afebrile, WBC 15.8, UA reporting positive nitrates, large leukocytes high urine WBCs, high urine RBCs. Electrolytes, renal function stable. Chest x-ray reported no acute pulmonary process. Troponin negative x 1, EKG reported sinus rhythm, denies chest pain, some palpitations with exertion. CT of abdomen pelvis pending. Review of Systems ROS Statement: Those systems with pertinent positive or pertinent negative responses have been documented in the HPI. ROS Other: All systems not noted in ROS Statement are negative. Past Medical History Past Medical History: GERD/Reflux, Pneumonia, Rheumatoid Arthritis (RA) Additional Past Medical History / Comment(s): IP ADMISSION FORGASTRIC ULCER IN MAY 2022 WITH HIGH PLATELET & WHITE COUNT THROMBYTOSIS- (SEES DR DAWKINS). COPD, leukoplakia of the vocal cords, chronic shoulder back and neck pain, acid reflux, depression, raynaud's syndrome. takes aldactone for hair loss. CML History of Any Multi-Drug Resistant Organisms: MRSA Date of last positivie culture/infection: 05/03/19 MDRO Source:: MRSA FACE Past Surgical History: Back Surgery, Cholecystectomy, Hernia Repair, Orthopedic Surgery, Tonsillectomy Additional Past Surgical History / Comment(s): arthroscopic shoulder, vocal cord scraping, dariana fundoplasty, CERVICAL FUSSION, recent EGD, colonoscopy. VENTRAL HERNIA. Past Anesthesia/Blood Transfusion Reactions: Blood Transfusion Reaction Additional Past Anesthesia/Blood Transfusion Reaction / Comment(s): TRANSFUSIONS WITH GASTRIC ULCER, no previous reactions Past Psychological History: Anxiety, Depression Smoking Status: Current some day smoker Past Alcohol Use History: None Reported Past Drug Use History: None Reported - Past Family History Mother History Unknown: Yes Family Medical History: Cancer Father Family Medical History: Unable to Obtain Medications and Allergies Home Medications Medication Instructions Recorded Confirmed Type Gabapentin 800 mg PO QID 05/01/14 12/26/23 History Topiramate 100 mg PO BID 05/01/14 12/26/23 History HYDROcodone/APAP 7.5-325MG [[place] 1 tab PO QID 03/11/16 12/26/23 History 7.5-325] Baclofen [Lioresal] 20 mg PO HS 07/02/17 12/26/23 History Sertraline [Zoloft] 50 mg PO DAILY 07/02/17 12/26/23 History buPROPion XL [Wellbutrin XL] 300 mg PO DAILY 07/02/17 12/26/23 History Multivit with Calcium,Iron,Min 1 tab PO DAILY 10/21/19 12/26/23 History [Women's Multivitamin] Spironolactone [Aldactone] 25 mg PO DAILY 12/21/21 12/26/23 History Aspirin [Adult Low Dose Aspirin EC] 81 mg PO DAILY 06/07/22 12/26/23 History Omeprazole [PriLOSEC] 20 mg PO AC-BRKFST #90 cap 06/09/22 12/26/23 Rx Clindamycin Phosphate 1 applic TOPICAL BID 01/16/23 12/26/23 History Tretinoin [Tretinoin 0.025%] 1 applic TOPICAL HS 01/16/23 12/26/23 History Lactulose [Cephulac] 30 gm PO BID PRN #600 ml 01/20/23 12/26/23 Rx Albuterol Inhaler [Ventolin Hfa 1 puff INHALATION RT-Q6H PRN 11/05/23 12/26/23 History Inhaler] Imatinib Mesylate 400 mg PO W/SUPPER 12/26/23 12/26/23 History Ondansetron [Zofran] 4 mg PO DAILY PRN 12/26/23 12/26/23 History hydrOXYzine HCL [Atarax] 25 mg PO HS 12/26/23 12/26/23 History Allergies Allergy/AdvReac Type Severity Reaction Status Date / Time metronidazole [From Flagyl] Allergy Itching, Verified 12/26/23 19:13 BURNING OF SKIN Physical Exam Vitals: Vital Signs Temp Pulse Resp BP Pulse Ox 12/27/23 13:23 97 21 117/74 12/27/23 11:27 98.3 F 86 22 115/70 100 12/27/23 07:24 98.0 F 120 H 18 98/60 100 12/27/23 06:33 76 18 92/60 100 12/27/23 04:44 98.9 F 90 18 99/54 95 12/26/23 21:39 98.7 F 105 H 18 104/66 98 12/26/23 21:02 98.0 F 82 18 103/65 97 12/26/23 19:49 97.9 F 85 18 112/65 98 12/26/23 15:36 97.7 F 98 18 122/79 100 VITAL SIGNS: [As above] GENERAL: Pale, thin female, alert and oriented x 3, sitting up on stretcher, no acute distress HEENT: Normocephalic, atraumatic conjunctivae pale. eyes normal. Sclera anicteric NECK: Supple, no JVD. CARDIOVASCULAR: S1, S2 regular. No murmur RESPIRATION: Unlabored, equal air entry ,breath sounds diminished in the bases. ABDOMEN: Soft, nondistended, nontender. No guarding. No rigidity, positive bowel sounds LEGS: No edema. no swelling NERVOUS SYSTEM: Cranial N 2-12 grossly normal. Moves all 4 limbs. No focal deficits. Strength and sensation grossly intact. Skin: Warm and dry, no rash Results CBC & Chem 7: 12/27/23 11:27 12/27/23 11:27 Labs: Abnormal Lab Results - Last 24 Hours (Table) 12/26/23 12/26/23 12/26/23 Range/Units 17:12 17:12 18:25 WBC 15.8 H (3.8-10.6) k/uL RBC 1.73 L (3.80-5.40) m/uL Hgb 4.5 L* D (11.4-16.0) gm/dL Hct 16.6 L* (34.0-46.0) % MCH (25.0-35.0) pg MCHC 27.0 L (31.0-37.0) g/dL RDW 29.0 H (11.5-15.5) % Plt Count 2317 H* (150-450) k/uL Neutrophils # (Manual) 12.90 H (1.3-7.7) k/uL Lymphocytes # (Manual) (1.0-4.8) k/uL Monocytes # (Manual) 1.26 H (0-1.0) k/uL Metamyelocytes # (Man) 0.32 H (0) k/uL Myelocytes # (Manual) 0.32 H (0) k/uL Nucleated RBCs 2 H (0-0) /100 WBC Macrocytosis Marked A Sodium 136 L (137-145) mmol/L Chloride 109 H (98-107) mmol/L BUN 28 H (7-17) mg/dL Glucose (74-99) mg/dL AST 63 H (14-36) U/L Total Protein 6.0 L (6.3-8.2) g/dL Albumin (3.5-5.0) g/dL Urine Appearance (Clear) Urine Nitrite (Negative) Ur Leukocyte Esterase (Negative) Urine RBC (0-5) /hpf Urine WBC (0-5) /hpf Urine WBC Clumps (None) /hpf Urine Bacteria (None) /hpf Urine Mucus (None) /hpf Urine Yeast (Budding) (None) /hpf Crossmatch See Detail 12/27/23 12/27/23 12/27/23 Range/Units 07:30 11:27 11:27 WBC 14.8 H (3.8-10.6) k/uL RBC 2.35 L (3.80-5.40) m/uL Hgb 5.7 L* (11.4-16.0) gm/dL Hct 22.4 L (34.0-46.0) % MCH 24.4 L (25.0-35.0) pg MCHC 25.6 L (31.0-37.0) g/dL RDW 26.3 H (11.5-15.5) % Plt Count 2278 H* (150-450) k/uL Neutrophils # (Manual) 12.58 H (1.3-7.7) k/uL Lymphocytes # (Manual) 0.89 L (1.0-4.8) k/uL Monocytes # (Manual) 1.33 H (0-1.0) k/uL Metamyelocytes # (Man) (0) k/uL Myelocytes # (Manual) (0) k/uL Nucleated RBCs (0-0) /100 WBC Macrocytosis Sodium 135 L (137-145) mmol/L Chloride 109 H (98-107) mmol/L BUN (7-17) mg/dL Glucose 107 H (74-99) mg/dL AST (14-36) U/L Total Protein 5.6 L (6.3-8.2) g/dL Albumin 3.3 L (3.5-5.0) g/dL Urine Appearance Cloudy H (Clear) Urine Nitrite Positive H (Negative) Ur Leukocyte Esterase Large H (Negative) Urine RBC >182 H (0-5) /hpf Urine WBC 169 H (0-5) /hpf Urine WBC Clumps Few H (None) /hpf Urine Bacteria Many H (None) /hpf Urine Mucus Rare H (None) /hpf Urine Yeast (Budding) Few H (None) /hpf Crossmatch Assessment and Plan Assessment: Acute on chronic symptomatic severe anemia, related to CML. Status post multiple workups last year without evidence of GI bleed. Transfusion of 2 unit of packed RBCs pending. Acute UTI CML, diagnosed December 2022 ,started treatments in February 2023 Acute on chronic thrombocytosis, related to the above Leukocytosis Chronic thoracic back pain and tenderness, prior MRI reported age-related degenerative changes throughout the thoracic spine with multilevel disc bulging most pronounced at T2-T3, central disc protrusion C6-C7. History of COPD, stable Hypertension GERD Rheumatoid arthritis History of anxiety/depression Continued ongoing nicotine dependence Moderate calorie protein malnutrition Plan: Continue on current medication regimen ,monitoring and symptomatic treatment. Transfusion of 2 units of packed RBCs pending. Antibiotics for acute UTI. Pain management. CT of abdomen and pelvis pending. maintain symptomatic, supportive care. Close monitoring of hemoglobin, platelets with repeat labs ordered for a.m. Hematology/oncology/general surgery consult in place. GI prophylaxis in place. The impression and plan of care has been dictated as directed. : I performed a history and examination of this patient, discussed the same with the dictator. I agree with the dictator's note ,documented as a scribe. Any additional findings or plans will be noted.
[2023-12-27] MEDS: ONDANSETRON 4 MG/2 ML VIAL IVP PRN (15:39)
[2023-12-27] MEDS: IMATINIB MESYLATE 400 MG PO SCH (16:58)
[2023-12-27] MEDS: BACLOFEN 10 MG TAB PO SCH (21:08)
[2023-12-28 01:41] LABS: Anisocytosis Moderate; HCT 27.3 % (34.0-46.0); Hypochromasia Marked; MCH 27.5 pg (25.0-35.0); MCV 91.7 fL (80.0-100.0); Macrocytosis Slight; Mean Platelet Volume 8.1; Poikilocytosis Marked; RBC 2.97 m/uL (3.80-5.40); RDW 23.4 % (11.5-15.5)
[2023-12-28 01:53] LABS: Platelet Count 1842 k/uL (150-450)
[2023-12-28 01:54] LABS: HGB 8.2 gm/dL (11.4-16.0)
[2023-12-28 08:22] LABS: Anisocytosis Moderate; HCT 28.9 % (34.0-46.0); HGB 8.4 gm/dL (11.4-16.0); Hypochromasia Marked; MCH 26.6 pg (25.0-35.0); MCHC 29.1 g/dL (31.0-37.0); MCV 91.5 fL (80.0-100.0); Macrocytosis Slight; Mean Platelet Volume 7.7; Poikilocytosis Marked; RBC 3.16 m/uL (3.80-5.40); RDW 23.1 % (11.5-15.5)
[2023-12-28 08:33] LABS: Platelet Count 2050 k/uL (150-450)
[2023-12-28 08:42] LABS: African American GFR (CKD) 86 (>60 ml/min/1.73 sqM); Anion Gap 4 mmol/L; Blood Urea Nitrogen 11 mg/dL (7-17); Carbon Dioxide 23 mmol/L (22-30); Chloride 110 mmol/L (98-107); Glucose 126 mg/dL (74-99); Non-African American GFR(CKD) 75 (>60 ml/min/1.73 sqM); Potassium 4.7 mmol/L (3.5-5.1); Sodium 137 mmol/L (137-145)
[2023-12-28 08:50] LABS: Band Neutrophils % 3 %; Eosinophils # (M) 0.59 k/uL (0-0.7); Large Platelets Present; Lymphocytes # (M) 1.18 k/uL (1.0-4.8); Monocytes # (M) 0.74 k/uL (0-1.0); Neutrophils % (M) 80 %; Nucleated Red Blood Cells 2 /100 WBC (0-0); Total Cells Counted 100; WBC 14.8 k/uL (3.8-10.6)
[2023-12-28 08:51] LABS: Target Cells Present
[2023-12-28] MEDS: TOPIRAMATE 100 MG TAB PO SCH (09:48)
--- NOTE | 2023-12-28 09:49 | P.DS ---
Providers Date of admission: 12/26/23 18:32 Expected date of discharge: 12/28/23 Attending physician: Bashir Jefferson MD Consults: 12/26/23 18:32 Consult Physician Routine Consulting Provider: Latrell Alexis Consult Reason/Comments: Anemia, CML Do you want consulting provider notified?: Yes Consult Physician Routine Consulting Provider: Alexandro Dawkins Consult Reason/Comments: Anemia, CML Do you want consulting provider notified?: Yes Primary care physician: Katja Jefferson [facility] Course: Final Diagnoses: Acute on chronic symptomatic severe anemia, related to CML. Status post multiple workups last year without evidence of GI bleed. Status post transfusion of 2 units of packed RBCs, hemoglobin 8.2, platelets decreased to 1842 Acute UTI CML, diagnosed December 2022 ,started treatments in February 2023 Acute on chronic thrombocytosis, related to the above Leukocytosis Chronic thoracic back pain and tenderness, prior MRI reported age-related degenerative changes throughout the thoracic spine with multilevel disc bulging most pronounced at T2-T3, central disc protrusion C6-C7. History of COPD, stable Hypertension GERD Rheumatoid arthritis History of anxiety/depression Continued ongoing nicotine dependence Moderate calorie protein malnutrition Hospital course:This is a 63-year-old female with past medical history significant for CML on Gleevec, multiple workups within the last year for anemia, follows regularly with Dr. Dawkins, presented to the ER with progressive symptomatic anemia, weakness, exertional dyspnea, fatigue, dizziness , nausea ,no vomiting over the last couple of days with abdominal cramping and worsening chronic back pain radiating down to bilateral flanks. Denies fevers or chills. Hemoglobin 4.5, platelets 2317. Afebrile, WBC 15.8, UA reporting positive nitrates, large leukocytes high urine WBCs, high urine RBCs. Electrolytes, renal function stable. Chest x-ray reported no acute pulmonary process. Troponin negative x 1, EKG reported sinus rhythm, denies chest pain, some palpitations with exertion. CT of abdomen pelvis pending. Significant clinical improvement.Status post transfusion of 2 units of packed RBCs, hemoglobin 8.2, platelets decreased to 1842. Abdomen pelvis CT completed yesterday, [facility] down, unable to see imaging-further review outpatient once imaging available. Denies lightheadedness, dizziness or focal deficits. Denies lightheadedness, dizziness or focal deficits. Denies chest pain, palpitations or shortness of breath. Denies abdominal pain. Complains of chronic anterior bottom of left rib cage radiating to around to posterior bottom of rib cage- suspect related to splenomegaly. Patient will be discharged home today in a stable condition with guarded prognosis pending final clearance per oncology. The impression and plan of care has been dictated as directed. : I performed a history and examination of this patient, discussed the same with the dictator. I agree with the dictator's note ,documented as a scribe. Any additional findings or plans will be noted. Patient Condition at Discharge: Stable Plan - Discharge Summary Discharge Rx Participant: No New Discharge Prescriptions: Continue Topiramate 100 mg PO BID Gabapentin 800 mg PO QID HYDROcodone/APAP 7.5-325MG [[place] 7.5-325] 1 tab PO QID Baclofen [Lioresal] 20 mg PO HS buPROPion XL [Wellbutrin XL] 300 mg PO DAILY Sertraline [Zoloft] 50 mg PO DAILY Multivit with Calcium,Iron,Min [Women's Multivitamin] 1 tab PO DAILY Aspirin [Adult Low Dose Aspirin EC] 81 mg PO DAILY Omeprazole [PriLOSEC] 20 mg PO AC-BRKFST #90 cap Clindamycin Phosphate 1 applic TOPICAL BID Tretinoin [Tretinoin 0.025%] 1 applic TOPICAL HS Lactulose [Cephulac] 30 gm PO BID PRN #600 ml PRN Reason: Constipation Albuterol Inhaler [Ventolin Hfa Inhaler] 1 puff INHALATION RT-Q6H PRN PRN Reason: Shortness Of Breath Or Wheezing hydrOXYzine HCL [Atarax] 25 mg PO HS Spironolactone [Aldactone] 25 mg PO DAILY Ondansetron [Zofran] 4 mg PO DAILY PRN PRN Reason: Nausea Imatinib Mesylate 400 mg PO W/SUPPER Discharge Medication List Gabapentin 800 mg PO QID 05/01/14 [History] Topiramate 100 mg PO BID 05/01/14 [History] HYDROcodone/APAP 7.5-325MG [[place] 7.5-325] 1 tab PO QID 03/11/16 [History] Baclofen [Lioresal] 20 mg PO HS 07/02/17 [History] Sertraline [Zoloft] 50 mg PO DAILY 07/02/17 [History] buPROPion XL [Wellbutrin XL] 300 mg PO DAILY 07/02/17 [History] Multivit with Calcium,Iron,Min [Women's Multivitamin] 1 tab PO DAILY 10/21/19 [History] Spironolactone [Aldactone] 25 mg PO DAILY 12/21/21 [History] Aspirin [Adult Low Dose Aspirin EC] 81 mg PO DAILY 06/07/22 [History] Omeprazole [PriLOSEC] 20 mg PO AC-BRKFST #90 cap 06/09/22 [Rx] Clindamycin Phosphate 1 applic TOPICAL BID 01/16/23 [History] Tretinoin [Tretinoin 0.025%] 1 applic TOPICAL HS 01/16/23 [History] Lactulose [Cephulac] 30 gm PO BID PRN #600 ml 01/20/23 [Rx] Albuterol Inhaler [Ventolin Hfa Inhaler] 1 puff INHALATION RT-Q6H PRN 11/05/23 [History] Imatinib Mesylate 400 mg PO W/SUPPER 12/26/23 [History] Ondansetron [Zofran] 4 mg PO DAILY PRN 12/26/23 [History] hydrOXYzine HCL [Atarax] 25 mg PO HS 12/26/23 [History] Follow up Appointment(s)/Referral(s): Alexandro Dawkins [STAFF PHYSICIAN] - 01/14/24 2:00 pm Katja Jefferson DO [Primary Care Provider] - 3 Days Constance Rehman MD [STAFF PHYSICIAN] - 01/08/24 (as previously trena.)
--- NOTE | 2023-12-28 11:00 | P.PN ---
Progress Note - Text Progress Note Date: 12/28/23 Feels better today. Patient received 3 units of packed red cells. Her hemoglobin is in the 8 range. On exam vital signs appear stable. Abdomen soft. Patient is stable for discharge. She will follow-up as an outpatient.
--- NOTE | 2023-12-28 17:57 | P.PN ---
Subjective Progress Note Date: 12/28/23 No acute events. Reports feeling improved s/p blood infusions. Hgb 8.4 today. Having persisting left sided abd pain, that radiates to left mid back. Pt afebrile Objective - Vital Signs Vital signs: Vital Signs Temp 98.1 F 12/28/23 15:37 Pulse 75 12/28/23 15:37 Resp 16 12/28/23 15:37 BP 113/69 12/28/23 15:37 Pulse Ox 99 12/28/23 15:37 FiO2 Intake & Output 12/27/23 12/28/23 12/28/23 18:59 06:59 18:59 Intake Total 550 850 440 Balance 550 850 440 Weight 45.813 kg 45.7 kg Intake: Oral 240 540 440 Blood Product 310 310 Rc Irr As1 Unit 310 [id number] Rc Irr As1 Unit 310 [id number] Other: Voiding Method Toilet Toilet # Voids 1 2 - Constitutional General appearance: Present: no acute distress, thin - EENT Eyes: Present: anicteric sclerae, EOMI ENT: Present: hearing grossly normal - Respiratory Details: breathing is even and unlabored - Cardiovascular Details: skin warm and dry - Gastrointestinal General gastrointestinal: Present: soft, tenderness Localized gastrointestinal: tender: LUQ - Musculoskeletal Musculoskeletal: Present: strength equal bilaterally - Psychiatric Psychiatric: Present: A&O x's 3 - Labs CBC & Chem 7: 12/28/23 07:56 12/28/23 07:56 Labs: Abnormal Lab Results - Last 24 Hours (Table) 12/26/23 12/28/23 12/28/23 Range/Units 18:25 01:03 07:56 WBC 16.0 H 14.8 H (3.8-10.6) k/uL RBC 2.97 L 3.16 L (3.80-5.40) m/uL Hgb 8.2 L D 8.4 L (11.4-16.0) gm/dL Hct 27.3 L 28.9 L (34.0-46.0) % MCHC 30.0 L 29.1 L (31.0-37.0) g/dL RDW 23.4 H 23.1 H (11.5-15.5) % Plt Count 1842 H* 2050 H* (150-450) k/uL Neutrophils # (Manual) 12.20 H (1.3-7.7) k/uL Nucleated RBCs 2 H (0-0) /100 WBC Chloride (98-107) mmol/L Glucose (74-99) mg/dL Crossmatch See Detail 12/28/23 Range/Units 07:56 WBC (3.8-10.6) k/uL RBC (3.80-5.40) m/uL Hgb (11.4-16.0) gm/dL Hct (34.0-46.0) % MCHC (31.0-37.0) g/dL RDW (11.5-15.5) % Plt Count (150-450) k/uL Neutrophils # (Manual) (1.3-7.7) k/uL Nucleated RBCs (0-0) /100 WBC Chloride 110 H (98-107) mmol/L Glucose 126 H (74-99) mg/dL Crossmatch - Imaging and Cardiology CT scan - abdomen: report reviewed CT scan - pelvis: report reviewed Assessment and Plan (1) Symptomatic anemia Current Visit: Yes Status: Acute Priority: High Code(s): D64.9 - ANEMIA, UNSPECIFIED SNOMED Code(s): 679569555 (2) Chronic myeloid leukemia (CML), BCR/ABL-positive Current Visit: Yes Status: Chronic Priority: Medium Code(s): C92.10 - CHRONIC MYELOID LEUK, BCR/ABL-POSITIVE, NOT ACHIEVE REMIS SNOMED Code(s): 56439100 (3) Essential thrombocythemia Current Visit: Yes Status: Chronic Priority: Medium Code(s): D47.3 - ESSENTIAL (HEMORRHAGIC) THROMBOCYTHEMIA SNOMED Code(s): 809180859 Plan: Symptomatic anemia -Hemoglobin 4.5 on admit. S/p 2 units PRBCs -Hgb today 8.4, pt reporting feeling improved today CML -Patient is on Gleevec. She has tried full dose for the last couple of weeks but, seems to be somewhat intolerant. -Hold Gleevec while patient is acutely ill and inpatient. Thrombocytosis -Chronic MPN/ET -Patient is not on any treatment for the same as the count improves on treatment. -No anticoagulation currently because of severely low Hgb Abdominal pain, acute on chronic -CT of the abdomen and pelvis ordered. Scan showed stable intra and extrahepatic biliary dilation, with mild dilation of the pancreatic duct. Nonobstructing right renal calculus. Mild approximately 10% superior endplate compression fracture at L3. Splenomegaly noted measuring 17 cm. -Surgery consulted, no plan for intervention at this time. Plan to f/u outpt -Carafate ordered. -UA suspicious for UTI. No abx have been ordered. Urine culture ordered and rocephin started. Pt should be placed on oral abx if discharge is planned for today while culture pending -Will plan for further outpt evaluation of noted L3 compression fracture on CT Pt is cleared for discharge from hem/onc standpoint once cleared by IM and other consulted specialities
[2023-12-28] MEDS: hydrOXYzine HCL 25 MG TAB PO PRN (23:38)
[2023-12-29] MEDS: LACTULOSE 20 GM/30 ML CUP PO PRN (01:27)
[2023-12-29] MEDS: ACETAMINOPHEN TAB 325 MG TAB PO PRN (01:31)
--- NOTE | 2023-12-29 08:46 | P.PN ---
Subjective Progress Note Date: 12/29/23 Patient feels better today. Her discharge was held yesterday due to a urinary tract infection. She still has some complaints of left upper quadrant pain. On exam vital signs appear stable. Abdomen soft. Chronic abdominal pain. Anemia has been worked up endoscopically several months ago. Patient stable for discharge from surgical standpoint. Objective - Vital Signs Vital signs: Vital Signs Temp 97.7 F 12/29/23 04:00 Pulse 77 12/29/23 04:00 Resp 16 12/29/23 04:00 BP 106/74 12/29/23 04:00 Pulse Ox 99 12/29/23 04:00 FiO2 Intake & Output 12/28/23 12/29/23 12/29/23 18:59 06:59 18:59 Intake Total 560 10 Balance 560 10 Weight 45.4 kg Intake: IV 10 Invasive Line 1 10 Oral 560 Other: Voiding Method Toilet Toilet # Voids 2 1 - Labs CBC & Chem 7: 12/28/23 07:56 12/28/23 07:56 Labs: Abnormal Lab Results - Last 24 Hours (Table) 12/28/23 Range/Units 07:56 WBC 14.8 H (3.8-10.6) k/uL Neutrophils # (Manual) 12.20 H (1.3-7.7) k/uL Nucleated RBCs 2 H (0-0) /100 WBC
[2023-12-29 08:53] VITALS: RESP 17; TEMP 97.6
[2023-12-29 11:33] VITALS: BP 119/73; PULSE 86
--- NOTE | 2023-12-29 14:20 | P.DS ---
Providers Date of admission: 12/26/23 18:32 Expected date of discharge: 12/29/23 Attending physician: Bashir Jefferson MD Consults: 12/26/23 18:32 Consult Physician Routine Consulting Provider: Latrell Alexis Consult Reason/Comments: Anemia, CML Do you want consulting provider notified?: Yes Consult Physician Routine Consulting Provider: Alexandro Dawkins Consult Reason/Comments: Anemia, CML Do you want consulting provider notified?: Yes Primary care physician: Katja Jefferson [facility] Course: 63-year-old female with past medical history significant for CML on Gleevec, multiple workups within the last year for anemia, follows regularly with Dr. Dawkins, presented to the ER with progressive symptomatic anemia, weakness, exertional dyspnea, fatigue, dizziness , nausea ,no vomiting over the last couple of days with abdominal cramping and worsening chronic back pain radiating down to bilateral flanks. Denies fevers or chills. Hemoglobin 4.5, platelets 2317. Afebrile, WBC 15.8, UA reporting positive nitrates, large leukocytes high urine WBCs, high urine RBCs. Electrolytes, renal function stable. Chest x-ray reported no acute pulmonary process. Troponin negative x 1, EKG reported sinus rhythm, denies chest pain, some palpitations with exertion. CT of abdomen pelvis pending. Evaluated by heme oncology Symptomatic anemia -Hemoglobin 4.5 on admit. S/p 2 units PRBCs -Hgb today 8.4, pt reporting feeling improved today CML -Patient is on Gleevec. She has tried full dose for the last couple of weeks but, seems to be somewhat intolerant. -Hold Gleevec while patient is acutely ill and inpatient. Thrombocytosis -Chronic MPN/ET -Patient is not on any treatment for the same as the count improves on treatment. -No anticoagulation currently because of severely low Hgb Abdominal pain, acute on chronic -CT of the abdomen and pelvis ordered. Scan showed stable intra and extrahepatic biliary dilation, with mild dilation of the pancreatic duct. Nonobstructing right renal calculus. Mild approximately 10% superior endplate compression fracture at L3. Splenomegaly noted measuring 17 cm. -Surgery consulted, no plan for intervention at this time. Plan to f/u outpt -Carafate ordered. -UA suspicious for UTI. No abx have been ordered. Urine culture ordered and rocephin started. Pt should be placed on oral abx if discharge is planned for today while culture pending -Will plan for further outpt evaluation of noted L3 compression fracture on CT Pt is cleared for discharge from hem/onc standpoint once cleared by IM and other consulted specialities Patient remained stable and was cleared for discharge by surgery Stable to discharge home and be followed up outpatient Patient Condition at Discharge: Stable Plan - Discharge Summary Discharge Rx Participant: No New Discharge Prescriptions: New cefUROXime axetiL [Ceftin] 500 mg PO BID 3 Days #6 tab Continue Topiramate 100 mg PO BID Gabapentin 800 mg PO QID HYDROcodone/APAP 7.5-325MG [[place] 7.5-325] 1 tab PO QID Baclofen [Lioresal] 20 mg PO HS buPROPion XL [Wellbutrin XL] 300 mg PO DAILY Sertraline [Zoloft] 50 mg PO DAILY Multivit with Calcium,Iron,Min [Women's Multivitamin] 1 tab PO DAILY Aspirin [Adult Low Dose Aspirin EC] 81 mg PO DAILY Omeprazole [PriLOSEC] 20 mg PO AC-BRKFST #90 cap Clindamycin Phosphate 1 applic TOPICAL BID Tretinoin [Tretinoin 0.025%] 1 applic TOPICAL HS Lactulose [Cephulac] 30 gm PO BID PRN #600 ml PRN Reason: Constipation Albuterol Inhaler [Ventolin Hfa Inhaler] 1 puff INHALATION RT-Q6H PRN PRN Reason: Shortness Of Breath Or Wheezing hydrOXYzine HCL [Atarax] 25 mg PO HS Spironolactone [Aldactone] 25 mg PO DAILY Ondansetron [Zofran] 4 mg PO DAILY PRN PRN Reason: Nausea Imatinib Mesylate 400 mg PO W/SUPPER Discharge Medication List Gabapentin 800 mg PO QID 05/01/14 [History] Topiramate 100 mg PO BID 05/01/14 [History] HYDROcodone/APAP 7.5-325MG [[place] 7.5-325] 1 tab PO QID 03/11/16 [History] Baclofen [Lioresal] 20 mg PO HS 07/02/17 [History] Sertraline [Zoloft] 50 mg PO DAILY 07/02/17 [History] buPROPion XL [Wellbutrin XL] 300 mg PO DAILY 07/02/17 [History] Multivit with Calcium,Iron,Min [Women's Multivitamin] 1 tab PO DAILY 10/21/19 [History] Spironolactone [Aldactone] 25 mg PO DAILY 12/21/21 [History] Aspirin [Adult Low Dose Aspirin EC] 81 mg PO DAILY 06/07/22 [History] Omeprazole [PriLOSEC] 20 mg PO AC-BRKFST #90 cap 06/09/22 [Rx] Clindamycin Phosphate 1 applic TOPICAL BID 01/16/23 [History] Tretinoin [Tretinoin 0.025%] 1 applic TOPICAL HS 01/16/23 [History] Lactulose [Cephulac] 30 gm PO BID PRN #600 ml 01/20/23 [Rx] Albuterol Inhaler [Ventolin Hfa Inhaler] 1 puff INHALATION RT-Q6H PRN 11/05/23 [History] Imatinib Mesylate 400 mg PO W/SUPPER 12/26/23 [History] Ondansetron [Zofran] 4 mg PO DAILY PRN 12/26/23 [History] hydrOXYzine HCL [Atarax] 25 mg PO HS 12/26/23 [History] cefUROXime axetiL [Ceftin] 500 mg PO BID 3 Days #6 tab 12/28/23 [Rx] Follow up Appointment(s)/Referral(s): Alexandro Dawkins [STAFF PHYSICIAN] - 01/14/24 2:00 pm Katja Jefferson DO [Primary Care Provider] - 3 Days Constance Rehman MD [STAFF PHYSICIAN] - 01/08/24 (as previously trena.)
== END 2023-12-29 15:15 | disposition home or self-care (01) | DRG 841 ==
LOC: EC 15:27 → 3SCARD 18:32
PROVIDERS: ADMIT Family Medicine; ATTEND Family Medicine
DX: C92.10 Chronic myeloid leukemia, BCR/ABL-positive, not having achieved remission (principal); E46 Unspecified protein-calorie malnutrition; N39.0 Urinary tract infection, site not specified; M48.56XA Collapsed vertebra, not elsewhere classified, lumbar region, initial encounter for fracture; J44.9 Chronic obstructive pulmonary disease, unspecified; D64.9 Anemia, unspecified; M50.223 Other cervical disc displacement at C6-C7 level; M54.6 Pain in thoracic spine; I10 Essential (primary) hypertension; F17.210 Nicotine dependence, cigarettes, uncomplicated; F41.9 Anxiety disorder, unspecified; F32.A Depression, unspecified; M06.9 Rheumatoid arthritis, unspecified; K21.9 Gastro-esophageal reflux disease without esophagitis; D75.839 Thrombocytosis, unspecified; Z87.11 Personal history of peptic ulcer disease; D47.3 Essential (hemorrhagic) thrombocythemia; G89.29 Other chronic pain; I73.00 Raynaud's syndrome without gangrene; K86.89 Other specified diseases of pancreas; Z79.82 Long term (current) use of aspirin; Z79.899 Other long term (current) drug therapy; N20.0 Calculus of kidney
CPT/HCPCS: 36415; 71046; 74177; 80048; 80053; 81001; 83605; 83690; 83735; 84484; 85025; 85027; 85610; 85730; 86850; 86900; 86901; 86920; 87077; 87086; 87186; 93005; 96374; 96375; 96376; 99291

== ENCOUNTER 2024-01-04 20:55 | Inpatient (IN) | payer MEDICARE, OTHER ==
[2024-01-04] MEDS: PANTOPRAZOLE 40 MG/10 ML VIAL IVP STA (21:32)
--- NOTE | 2024-01-04 21:40 | ED ---
Recheck HPI - General Source: patient, EMS, RN notes reviewed Mode of arrival: EMS Limitations: no limitations - History of Present Illness MD Complaint: abnormal lab <Nicky Gomez - Last Filed: 01/05/24 04:11> <Kasey Rice - Last Filed: 01/28/24 12:15> - General Chief Complaint: Recheck/Abnormal Lab/Rx Stated Complaint: Low hemoglobin Time Seen by Provider: 01/04/24 21:03 - History of Present Illness Initial Comments: This is a 63 year old female who presents to the emergency department for low hemoglobin. Patient has a history of CML and anemia. She has had fairly extensive workups regarding the anemia, including several GI evaluations that were negative for any acute bleeding, and the anemia was thought to be likely related to the CML. She was discharged from the hospital on 12/28 after being admitted for symptomatic anemia requiring blood transfusions. She followed up with her primary care provider yesterday and had blood work done. She received a phone call today stating that her hemoglobin was 5.5 and she needed to return to the hospital. Reports increasing weakness and shortness of breath. She does have intermittent bouts of abdominal pain and nausea, which are an ongoing issue for her. Reports occasional dark stools, which have again been an issue for her in the past as well. She was started back on the Gleevec for the CML. (Nicky Gomez) - Related Data Home Medications Medication Instructions Recorded Confirmed Gabapentin 800 mg PO QID 05/01/14 01/05/24 Topiramate 100 mg PO BID 05/01/14 01/05/24 HYDROcodone/APAP 7.5-325MG [[place] 1 tab PO QID 03/11/16 01/05/24 7.5-325] Baclofen [Lioresal] 20 mg PO HS 07/02/17 01/05/24 Sertraline [Zoloft] 50 mg PO DAILY 07/02/17 01/05/24 buPROPion XL [Wellbutrin XL] 300 mg PO DAILY 07/02/17 01/05/24 Multivit with Calcium,Iron,Min 1 tab PO DAILY 10/21/19 01/05/24 [Women's Multivitamin] Spironolactone [Aldactone] 25 mg PO DAILY 12/21/21 01/05/24 Aspirin [Adult Low Dose Aspirin EC] 81 mg PO DAILY 06/07/22 01/05/24 Clindamycin Phosphate 1 applic TOPICAL BID 01/16/23 01/05/24 Tretinoin [Tretinoin 0.025%] 1 applic TOPICAL HS 01/16/23 01/05/24 Albuterol Inhaler [Ventolin Hfa 1 puff INHALATION RT-Q6H PRN 11/05/23 01/05/24 Inhaler] Imatinib Mesylate 400 mg PO W/SUPPER 12/26/23 01/05/24 Ondansetron [Zofran] 4 mg PO DAILY PRN 12/26/23 01/05/24 hydrOXYzine HCL [Atarax] 25 mg PO HS 12/26/23 01/05/24 Previous Rx's Medication Instructions Recorded Omeprazole [PriLOSEC] 20 mg PO AC-BRKFST #90 cap 06/09/22 Lactulose [Cephulac] 30 gm PO BID PRN #600 ml 01/20/23 Ciprofloxacin HCl [Cipro] 500 mg PO BID 3 Days #6 tab 01/09/24 Famotidine [Pepcid] 20 mg PO DAILY #7 tablet 01/09/24 polyethylene glycoL 3350 [Miralax] 17 gm PO BID packet 01/09/24 Allergies Allergy/AdvReac Type Severity Reaction Status Date / Time metronidazole [From Flagyl] Allergy Itching, Verified 01/05/24 10:29 BURNING OF SKIN Review of Systems ROS Other: All systems not noted in ROS Statement are negative. <Nicky Gomez - Last Filed: 01/05/24 04:11> ROS Other: All systems not noted in ROS Statement are negative. <Kasey Rice - Last Filed: 01/28/24 12:15> ROS Statement: Those systems with pertinent positive or pertinent negative responses have been documented in the HPI. Past Medical History Past Medical History: GERD/Reflux, Pneumonia, Rheumatoid Arthritis (RA) Additional Past Medical History / Comment(s): IP ADMISSION FORGASTRIC ULCER IN MAY 2022 WITH HIGH PLATELET & WHITE COUNT THROMBYTOSIS- (SEES DR REBOLLEDO). COPD, leukoplakia of the vocal cords, chronic shoulder back and neck pain, acid reflux, depression, raynaud's syndrome. takes aldactone for hair loss. CML History of Any Multi-Drug Resistant Organisms: MRSA Date of last positivie culture/infection: 05/03/19 MDRO Source:: MRSA FACE Past Surgical History: Back Surgery, Cholecystectomy, Hernia Repair, Orthopedic Surgery, Tonsillectomy Additional Past Surgical History / Comment(s): arthroscopic shoulder, vocal cord scraping, dariana fundoplasty, CERVICAL FUSSION, recent EGD, colonoscopy. VENTRAL HERNIA. Past Anesthesia/Blood Transfusion Reactions: Blood Transfusion Reaction Additional Past Anesthesia/Blood Transfusion Reaction / Comment(s): TRANSFUSIONS WITH GASTRIC ULCER, no previous reactions Past Psychological History: Anxiety, Depression Smoking Status: Current some day smoker Past Alcohol Use History: None Reported Past Drug Use History: None Reported - Past Family History Mother History Unknown: Yes Family Medical History: Cancer Father Family Medical History: Unable to Obtain <Nicky Gomez - Last Filed: 01/05/24 04:11> General Exam Limitations: no limitations General appearance: alert, in no apparent distress Head exam: Present: atraumatic, normocephalic, normal inspection Respiratory exam: Present: normal lung sounds bilaterally. Absent: respiratory distress, wheezes, rales, rhonchi, stridor Cardiovascular Exam: Present: tachycardia GI/Abdominal exam: Present: soft, normal bowel sounds. Absent: distended, tenderness, guarding, rebound, rigid Neurological exam: Present: alert, oriented X3, CN II-XII intact Psychiatric exam: Present: normal affect, normal mood Skin exam: Present: warm, dry, intact, normal color. Absent: rash <Nicky Gomez - Last Filed: 01/05/24 04:11> Course Vital Signs 01/04/24 01/04/24 01/04/24 20:58 22:03 22:52 Temperature 98.8 F 98.7 F Pulse Rate 107 H 99 97 Respiratory 18 18 20 Rate Blood Pressure 106/81 116/67 118/64 O2 Sat by Pulse 96 99 100 Oximetry 01/04/24 01/04/24 01/04/24 23:18 23:25 23:45 Temperature 98 F 98 F 97.9 F Pulse Rate 96 103 H 92 Respiratory 18 20 18 Rate Blood Pressure 101/62 105/62 106/63 O2 Sat by Pulse 97 97 100 Oximetry 01/05/24 01/05/24 01/05/24 01:00 01:10 01:23 Temperature 98 F 97.9 F Pulse Rate 84 84 90 Respiratory 18 18 18 Rate Blood Pressure 113/73 115/65 98/69 O2 Sat by Pulse 99 100 100 Oximetry 01/05/24 01/05/24 01/05/24 01:43 03:25 03:30 Temperature 97.9 F 97.9 F Pulse Rate 89 86 88 Respiratory 18 18 18 Rate Blood Pressure 110/78 111/71 101/65 O2 Sat by Pulse 100 99 99 Oximetry 01/05/24 01/05/24 01/05/24 07:00 08:32 08:36 Temperature 98 F 98.2 F Pulse Rate 85 81 Respiratory 18 18 18 Rate Blood Pressure 101/65 107/68 O2 Sat by Pulse 100 88 L Oximetry 01/05/24 01/05/24 01/05/24 09:20 11:00 12:33 Temperature Pulse Rate 85 85 78 Respiratory 18 18 18 Rate Blood Pressure 102/69 103/67 106/79 O2 Sat by Pulse 97 99 100 Oximetry 01/05/24 01/05/24 14:53 17:03 Temperature 98.2 F Pulse Rate 78 78 Respiratory 16 18 Rate Blood Pressure 107/70 109/79 O2 Sat by Pulse 99 100 Oximetry Medical Decision Making - Lab Data Result diagrams: 01/04/24 21:19 01/04/24 21:19 - Radiology Data Radiology results: report reviewed, image reviewed <Nicky Gomez - Last Filed: 01/05/24 04:11> - Lab Data Result diagrams: 01/09/24 08:46 01/09/24 08:46 <Kasey Rice - Last Filed: 01/28/24 12:15> - Medical Decision Making This is a 63 year old female who presents to the emergency department for low hemoglobin. Was pt. sent in by a medical professional or institution? @ -Her PCP Did you speak to anyone other than the patient for history? @ -No Did you review nursing and triage notes? @ -Yes, and I agree, it is accurate with regards to the patient's symptoms. Were old charts reviewed? @ -No Differential Diagnosis? @ -Differential Low Hemoglobin: Iron deficiency anemia, blood loss, medications, anemia of chronic disease, this is not meant to be an all-inclusive list. EKG interpreted by me (3pts min.)? @ -EKG interpreted by me demonstrating the following: Sinus tachycardia. Ventricular rate 100 bpm, MN interval 123 ms, QRS duration 91 ms, QTc 393 ms. X-rays interpreted by me (1pt min.)? @ -Chest x-ray obtained, my interpretation identifies no localized consolidations or infiltrates. CT interpreted by me (1pt min.)? @ -Not obtained U/S interpreted by me (1pt. min.)? @ -Not obtained What testing was considered but not performed? (CT, X-rays, U/S, labs)? Why? @ -None What meds were considered but not given? Why? @ -None Did you discuss the management of the patient with other professionals? @ -Yes, Dr. Castanon, who accepts the patient for admission. Did you reconcile home meds? @ -No Was smoking cessation discussed for >3mins.? @ -No Was critical care preformed (if so, how long)? @ -No Were there social determinants of health that impacted care today? How? (Homelessness, low income, unemployed, alcoholism, drug addiction, transportation, low edu. Level, literacy, decrease access to med. care, assisted, rehab)? @ -No Was there de-escalation of care discussed even if they declined? (Discuss DNR or withdrawal of care, Hospice)? @ -No What co-morbidities impacted this encounter? (DM, HTN, Smoking, COPD, CAD, Cancer, CVA, Hep., AIDS, mental health diagnosis, sleep apnea, morbid obesity)? @ -CML, anemia Was patient admitted / discharged? @ -Admitted. Lab work demonstrates a hemoglobin of 4.5, which is the same as it was during her most recent admission. She also has leukocytosis and thromboc ytosis, both of which are also common findings for the patient. Urinalysis negative for signs of infection. Chest x-ray reveals no acute process. On review of prior documentation, patient has had multiple evaluations/workups regarding the anemia, including negative GI testing, and it was thought to be most likely related to the CML. Patient subsequently admitted to medicine for symptomatic anemia with consult placed for hem/onc. 2 units of PRBCs were ordered. Iron panel ordered as well with results pending at the time of admission. Case discussed with ED attending Dr. Rice. Undiagnosed new problem with uncertain prognosis? @ -None Drug Therapy requiring intensive monitoring for toxicity (Heparin, Nitro, Insulin, Cardizem)? @ -None Were any procedures done? @ -None Diagnosis/symptom? @ -Symptomatic anemia Acute, or Chronic, or Acute on Chronic? @ -Acute Uncomplicated (without systemic symptoms) or Complicated (systemic symptoms)? @ -Complicated Side effects of treatment? @ -None Exacerbation, Progression, or Severe Exacerbation] @ -Not applicable Poses a threat to life or bodily function? @ -Yes, can be fatal if not treated (Nicky Gomez) Critical care time of 40 minutes for blood product transfusion (Kasey Rice) - Lab Data Lab Results 01/04/24 01/04/24 01/04/24 Range/Units 21:18 21:19 21:19 WBC 20.0 H (3.8-10.6) k/uL RBC 1.78 L (3.80-5.40) m/uL Hgb 4.5 L* D (11.4-16.0) gm/dL Hct 15.7 L* (34.0-46.0) % MCV 88.2 (80.0-100.0) fL MCH 25.3 (25.0-35.0) pg MCHC 28.7 L (31.0-37.0) g/dL RDW 24.5 H (11.5-15.5) % Plt Count 1882 H* (150-450) k/uL MPV 8.0 Neutrophils % (Manual) 83 % Lymphocytes % (Manual) 8 % Monocytes % (Manual) 3 % Eosinophils % (Manual) 2 % Basophils % (Manual) 2 % Metamyelocytes % 3 % Myelocytes % 2 % Neutrophils # (Manual) 16.60 H (1.3-7.7) k/uL Lymphocytes # (Manual) 1.60 (1.0-4.8) k/uL Monocytes # (Manual) 0.60 (0-1.0) k/uL Eosinophils # (Manual) 0.40 (0-0.7) k/uL Basophils # (Manual) 0.40 H (0-0.2) k/uL Metamyelocytes # (Man) 0.60 H (0) k/uL Myelocytes # (Manual) 0.40 H (0) k/uL Nucleated RBCs 4 H (0-0) /100 WBC Manual Slide Review Performed Dimorphic RBCs Present Hypochromasia Marked Poikilocytosis Marked Anisocytosis Marked Microcytosis Slight Macrocytosis Slight Target Cells Present PT 10.9 (10.0-12.5) sec INR 1.0 (<1.2) APTT 23.2 (22.0-30.0) sec Sodium (137-145) mmol/L Potassium (3.5-5.1) mmol/L Chloride (98-107) mmol/L Carbon Dioxide (22-30) mmol/L Anion Gap mmol/L BUN (7-17) mg/dL Creatinine (0.52-1.04) mg/dL Est GFR (CKD-EPI)AfAm (>60 ml/min/1.73 sqM) Est GFR (CKD-EPI)NonAf (>60 ml/min/1.73 sqM) Glucose (74-99) mg/dL Calcium (8.4-10.2) mg/dL Phosphorus (2.5-4.5) mg/dL Magnesium (1.6-2.3) mg/dL Iron (50-170) UG/DL TIBC (228-460) UG/DL % Saturation (12.00-45.00) Transferrin (204.0-354.0) mg/dL Total Bilirubin (0.2-1.3) mg/dL AST (14-36) U/L ALT (4-34) U/L Alkaline Phosphatase (38-126) U/L Troponin I (0.000-0.034) ng/mL Total Protein (6.3-8.2) g/dL Albumin (3.5-5.0) g/dL Urine Color Urine Appearance (Clear) Urine pH (5.0-8.0) Ur Specific [place] (1.001-1.035) Urine Protein (Negative) Urine Glucose (UA) (Negative) Urine Ketones (Negative) Urine Blood (Negative) Urine Nitrite (Negative) Urine Bilirubin (Negative) Urine Urobilinogen (<2.0) mg/dL Ur Leukocyte Esterase (Negative) Blood Type B Negative Blood Type Recheck B Neg Bld Type Recheck Status No Antibody Screen NEGATIVE Crossmatch See Detail Spec Expiration Date 01/07/2024 - 2318 09/06/24 09/06/24 09/06/24 Range/Units 21:19 21:19 22:55 WBC (3.8-10.6) k/uL RBC (3.80-5.40) m/uL Hgb (11.4-16.0) gm/dL Hct (34.0-46.0) % MCV (80.0-100.0) fL MCH (25.0-35.0) pg MCHC (31.0-37.0) g/dL RDW (11.5-15.5) % Plt Count (150-450) k/uL MPV Neutrophils % (Manual) % Lymphocytes % (Manual) % Monocytes % (Manual) % Eosinophils % (Manual) % Basophils % (Manual) % Metamyelocytes % % Myelocytes % % Neutrophils # (Manual) (1.3-7.7) k/uL Lymphocytes # (Manual) (1.0-4.8) k/uL Monocytes # (Manual) (0-1.0) k/uL Eosinophils # (Manual) (0-0.7) k/uL Basophils # (Manual) (0-0.2) k/uL Metamyelocytes # (Man) (0) k/uL Myelocytes # (Manual) (0) k/uL Nucleated RBCs (0-0) /100 WBC Manual Slide Review Dimorphic RBCs Hypochromasia Poikilocytosis Anisocytosis Microcytosis Macrocytosis Target Cells PT (10.0-12.5) sec INR (<1.2) APTT (22.0-30.0) sec Sodium 135 L (137-145) mmol/L Potassium 4.2 (3.5-5.1) mmol/L Chloride 105 (98-107) mmol/L Carbon Dioxide 23 (22-30) mmol/L Anion Gap 7 mmol/L BUN 23 H (7-17) mg/dL Creatinine 0.90 (0.52-1.04) mg/dL Est GFR (CKD-EPI)AfAm 80 (>60 ml/min/1.73 sqM) Est GFR (CKD-EPI)NonAf 70 (>60 ml/min/1.73 sqM) Glucose 88 (74-99) mg/dL Calcium 9.1 (8.4-10.2) mg/dL Phosphorus 3.6 (2.5-4.5) mg/dL Magnesium 1.7 (1.6-2.3) mg/dL Iron 14 L (50-170) UG/DL TIBC 410 (228-460) UG/DL % Saturation 3.41 L (12.00-45.00) Transferrin 293.0 (204.0-354.0) mg/dL Total Bilirubin 0.3 (0.2-1.3) mg/dL AST 35 (14-36) U/L ALT 21 (4-34) U/L Alkaline Phosphatase 59 (38-126) U/L Troponin I <0.012 (0.000-0.034) ng/mL Total Protein 5.7 L (6.3-8.2) g/dL Albumin 3.6 (3.5-5.0) g/dL Urine Color Colorless Urine Appearance Clear (Clear) Urine pH 7.0 (5.0-8.0) Ur Specific [place] 1.013 (1.001-1.035) Urine Protein Negative (Negative) Urine Glucose (UA) Negative (Negative) Urine Ketones Negative (Negative) Urine Blood Negative (Negative) Urine Nitrite Negative (Negative) Urine Bilirubin Negative (Negative) Urine Urobilinogen <2.0 (<2.0) mg/dL Ur Leukocyte Esterase Negative (Negative) Blood Type Blood Type Recheck Bld Type Recheck Status Antibody Screen Crossmatch Spec Expiration Date Disposition <Nicky Gomez - Last Filed: 01/05/24 04:11> <Kasye Rice - Last Filed: 01/28/24 12:15> Clinical Impression: Symptomatic anemia, CML (chronic myelocytic leukemia) Disposition: ADMITTED IP TO THIS [facility] Condition: Stable
[2024-01-04 21:47] LABS: ALT 21 U/L (4-34); AST 35 U/L (14-36); African American GFR (CKD) 80 (>60 ml/min/1.73 sqM); Albumin 3.6 g/dL (3.5-5.0); Alkaline Phosphatase 59 U/L (38-126); Anion Gap 7 mmol/L; Blood Urea Nitrogen 23 mg/dL (7-17); Calcium 9.1 mg/dL (8.4-10.2); Carbon Dioxide 23 mmol/L (22-30); Chloride 105 mmol/L (98-107); Glucose 88 mg/dL (74-99); Magnesium 1.7 mg/dL (1.6-2.3); Non-African American GFR(CKD) 70 (>60 ml/min/1.73 sqM); Phosphorus 3.6 mg/dL (2.5-4.5); Potassium 4.2 mmol/L (3.5-5.1); Sodium 135 mmol/L (137-145); Total Bilirubin 0.3 mg/dL (0.2-1.3); Total Protein 5.7 g/dL (6.3-8.2)
[2024-01-04 21:50] LABS: Anisocytosis Marked; Hypochromasia Marked; MCH 25.3 pg (25.0-35.0); MCHC 28.7 g/dL (31.0-37.0); MCV 88.2 fL (80.0-100.0); Macrocytosis Slight; Microcytosis Slight; Poikilocytosis Marked; RBC 1.78 m/uL (3.80-5.40); RDW 24.5 % (11.5-15.5)
[2024-01-04 21:53] LABS: Partial Thromboplastin Time 23.2 sec (22.0-30.0); Prothrombin Time 10.9 sec (10.0-12.5)
[2024-01-04 21:55] LABS: HGB 4.5 gm/dL (11.4-16.0)
[2024-01-04 21:56] LABS: HCT 15.7 % (34.0-46.0)
[2024-01-04] MEDS: MORPHINE SULFATE 4 MG/ML SYRINGE IVP STA (22:06)
[2024-01-04 22:29] LABS: Metamyelocytes % 3 %; Myelocytes % 2 %; Neutrophils % (M) 83 %; Nucleated Red Blood Cells 4 /100 WBC (0-0); Total Cells Counted 200
[2024-01-04 22:32] LABS: Mixed Population RBC Present
[2024-01-04 22:34] LABS: Target Cells Present
[2024-01-04 22:35] LABS: Platelet Count 1882 k/uL (150-450)
[2024-01-04] MEDS: HYDROmorphone 1 MG/ML 1 ML SYRINGE IVP STA (22:53)
[2024-01-04] MEDS ORDERED: NALOXONE 0.4 MG/ML 1 ML VIAL IV PRN (22:54)
[2024-01-04] MEDS ORDERED: ACETAMINOPHEN TAB 325 MG TAB PO PRN (22:54)
[2024-01-04] MEDS: ONDANSETRON 4 MG/2 ML VIAL IVP PRN (23:04)
--- NOTE | 2024-01-04 23:07 | XR ---
EXAMINATION TYPE: XR chest 2V DATE OF EXAM: 01/04/2024 9:51 PM CLINICAL INDICATION:Female, 63 years old with history of DHEERAJ; [facility] COMPARISON: 12/18/2023 TECHNIQUE: XR chest 2V. Frontal and lateral views of the chest.. FINDINGS: Lines/Tubes/Devices: EKG leads overlie the chest. No indwelling lines are seen. Heart/mediastinum: Stable cardiomediastinal silhouette. Heart size is normal. Mediastinum appears no rmal. Pulmonary vascularity: Not increased, Lungs/Pleura: Hyperinflation with some flattening of the diaphragm and mild interstitial changes, cor relate for COPD. No evidence of focal consolidation, sizeable pleural effusion, or pneumothorax. Musculoskeletal: No acute osseous abnormality demonstrated in the limits of the exam. Mild degenerat cassi changes of the shoulders and spine. Probable chronic right shoulder rotator cuff disease. ACDF sloan rdware over the lower cervical spine. Other findings: None. IMPRESSION: No acute findings, or significant interval change.
[2024-01-04 23:36] LABS: Appearance,Urine Clear (Clear); Bilirubin,Urine Negative (Negative); Blood,Urine Negative (Negative); Color,Urine Colorless; Glucose,Urine (UA) Negative (Negative); Ketones,Urine Negative (Negative); Leukocyte Esterase,Urine Negative (Negative); Nitrite,Urine Negative (Negative); Protein,Urine Negative (Negative); Specific Gravity,Urine 1.013 (1.001-1.035); Urobilinogen,Urine <2.0 mg/dL (<2.0)
[2024-01-05] MEDS: BACLOFEN 10 MG TAB PO ONE (01:45)
[2024-01-05] MEDS: GABAPENTIN 400 MG CAP PO STA (01:45)
[2024-01-05] MEDS: TOPIRAMATE 100 MG TAB PO ONE (01:45)
[2024-01-05] MEDS: HYDROcodone/APAP 7.5-325MG 1 EACH TAB PO ONE (01:45)
[2024-01-05 03:02] LABS: % Iron Saturation 3.41 (12.00-45.00); Iron 14 UG/DL (50-170); Total Iron Binding Capacity 410 UG/DL (228-460)
[2024-01-05] MEDS: HYDROmorphone 1 MG/ML 1 ML SYRINGE IVP PRN (06:54)
[2024-01-05 08:31] LABS: Anisocytosis Moderate; HCT 22.2 % (34.0-46.0); Hypochromasia Marked; MCHC 30.8 g/dL (31.0-37.0); MCV 87.5 fL (80.0-100.0); Mean Platelet Volume 7.7; Poikilocytosis Marked; RBC 2.54 m/uL (3.80-5.40); RDW 21.1 % (11.5-15.5)
[2024-01-05] MEDS: PANTOPRAZOLE 40 MG/10 ML VIAL IV SCH (08:47)
[2024-01-05 08:49] LABS: HGB 6.8 gm/dL (11.4-16.0)
[2024-01-05 09:03] LABS: ALT 17 U/L (4-34); AST 27 U/L (14-36); African American GFR (CKD) 81 (>60 ml/min/1.73 sqM); Albumin 3.1 g/dL (3.5-5.0); Alkaline Phosphatase 51 U/L (38-126); Anion Gap 6 mmol/L; Blood Urea Nitrogen 19 mg/dL (7-17); Calcium 8.5 mg/dL (8.4-10.2); Carbon Dioxide 23 mmol/L (22-30); Chloride 108 mmol/L (98-107); Glucose 91 mg/dL (74-99); Non-African American GFR(CKD) 70 (>60 ml/min/1.73 sqM); Potassium 4.5 mmol/L (3.5-5.1); Sodium 137 mmol/L (137-145); Total Bilirubin 0.5 mg/dL (0.2-1.3); Total Protein 5.1 g/dL (6.3-8.2)
[2024-01-05 09:07] LABS: Band Neutrophils % 2 %; Metamyelocytes # (M) 0.15 k/uL (0); Metamyelocytes % 1 %; Myelocytes % 2 %; Neutrophils % (M) 74 %; Nucleated Red Blood Cells 2 /100 WBC (0-0); Total Cells Counted 200
[2024-01-05 09:11] LABS: Eosinophils # (M) 0.74 k/uL (0-0.7); Lymphocytes # (M) 1.48 k/uL (1.0-4.8); Monocytes # (M) 1.04 k/uL (0-1.0); WBC 14.8 k/uL (3.8-10.6)
[2024-01-05 09:16] LABS: Large Platelets Present
[2024-01-05 09:17] LABS: Basophilic Stippling Present; Platelet Count 1461 k/uL (150-450); Polychromasia Present; Target Cells Present
[2024-01-05] MEDS: SODIUM FERRIC GLUCONAT-SUCROSE 125 MG in SODIUM CHLORIDE 0.9% 100 ML IVPB SCH (09:17)
[2024-01-05] MEDS: HYDROcodone/APAP 5-325MG 1 EACH TAB PO PRN (09:17)
--- NOTE | 2024-01-05 11:04 | P.CONS ---
History of Present Illness - Reason for Consult Consult date: 01/05/24 - History of Present Illness Mrs. Pickard is a 63-year-old woman with a past medical history significant for CML on Gleevec as well as iron deficiency status post IV iron infusions (last on 11/12/2023 and 11/19/2023) who presents with symptomatic anemia. She was admitted most recently on 12/27/2023 with hemoglobin 4.5, WBC 15.8 (ANC 12.9), platelets 2317. She had noted stopping Gleevec, but had been taking full dose at 400 mg daily for 2 weeks prior to that admission. CT abdomen/pelvis with contrast noted splenomegaly along with stable intra and extrahepatic biliary dilatation, but no acute findings such as hemorrhage. She was given 2 units of packed red blood cells with improvement in hemoglobin to 8.4. Outpatient CBC performed on 01/04/2024 noted hemoglobin of 5.5 and was recommended to report to the ED. In the ED, vitals were overall stable and afebrile. Labs revealed hemoglobin 4.5, WBC 20 (ANC 16.6 with elevated myelocytes, metamyelocytes, and basophils), platelets 1182. Coags were within normal limits. CMP revealed no significant metabolic abnormalities. Iron saturation was noted to be 3.41% with negative troponin. UA was negative. She received 2 units of packed red blood cells with hemoglobin of 6.8 posttransfusion. She also received 1 dose of IV Protonix. Clinically, she has noted persistent fatigue and weakness since discharge. She has been having abdominal pain along with melena. In addition, she notes nausea with dry heaving, denies any emesis or hematemesis. She has been taking Gleevec 400 mg daily since discharge and last took this yesterday prior to presentation to the ED. Last vitamin B12 checked on 11/05/2023 was greater than 3600. Folate around that time was 35.3. Last monoclonal gammopathy workup was then February 2023 that revealed no evidence of monoclonal gammopathy. She has had episodes of GI bleeding in the past with last EGD on 06/11/2023 revealing mild antral gastritis, but no evidence of overt GI bleeding. Pathology at that time revealed minimal chronic gastritis with no evidence of H. pylori. Review of Systems 14 point review of systems was conducted pertinent positives and negatives as noted per HPI Past Medical History Past Medical History: GERD/Reflux, Pneumonia, Rheumatoid Arthritis (RA) Additional Past Medical History / Comment(s): IP ADMISSION FORGASTRIC ULCER IN MAY 2022 WITH HIGH PLATELET & WHITE COUNT THROMBYTOSIS- (SEES DR REBOLLEDO). COPD, leukoplakia of the vocal cords, chronic shoulder back and neck pain, acid reflu x, depression, raynaud's syndrome. takes aldactone for hair loss. CML History of Any Multi-Drug Resistant Organisms: MRSA Year Discovered:: 05/03/19 MDRO Source:: MRSA FACE Past Surgical History: Back Surgery, Cholecystectomy, Hernia Repair, Orthopedic Surgery, Tonsillectomy Additional Past Surgical History / Comment(s): arthroscopic shoulder, vocal cord scraping, dariana fundoplasty, CERVICAL FUSSION, recent EGD, colonoscopy. VENTRAL HERNIA. Past Anesthesia/Blood Transfusion Reactions: Blood Transfusion Reaction Additional Past Anesthesia/Blood Transfusion Reaction / Comm: TRANSFUSIONS WITH GASTRIC ULCER, no previous reactions Past Psychological History: Anxiety, Depression Smoking Status: Current some day smoker Past Alcohol Use History: None Reported Past Drug Use History: None Reported - Past Family History Mother History Unknown: Yes Family Medical History: Cancer Father Family Medical History: Unable to Obtain Medications and Allergies Home Medications Medication Instructions Recorded Confirmed Type Gabapentin 800 mg PO QID 05/01/14 01/05/24 History Topiramate 100 mg PO BID 05/01/14 01/05/24 History HYDROcodone/APAP 7.5-325MG [[place] 1 tab PO QID 03/11/16 01/05/24 History 7.5-325] Baclofen [Lioresal] 20 mg PO HS 07/02/17 01/05/24 History Sertraline [Zoloft] 50 mg PO DAILY 07/02/17 01/05/24 History buPROPion XL [Wellbutrin XL] 300 mg PO DAILY 07/02/17 01/05/24 History Multivit with Calcium,Iron,Min 1 tab PO DAILY 10/21/19 01/05/24 History [Women's Multivitamin] Spironolactone [Aldactone] 25 mg PO DAILY 12/21/21 01/05/24 History Aspirin [Adult Low Dose Aspirin EC] 81 mg PO DAILY 06/07/22 01/05/24 History Omeprazole [PriLOSEC] 20 mg PO -BRKFST #90 cap 06/09/22 01/05/24 Rx Clindamycin Phosphate 1 applic TOPICAL BID 01/16/23 01/05/24 History Tretinoin [Tretinoin 0.025%] 1 applic TOPICAL HS 01/16/23 01/05/24 History Lactulose [Cephulac] 30 gm PO BID PRN #600 ml 01/20/23 01/05/24 Rx Albuterol Inhaler [Ventolin Hfa 1 puff INHALATION RT-Q6H PRN 11/05/23 01/05/24 History Inhaler] Imatinib Mesylate 400 mg PO W/SUPPER 12/26/23 01/05/24 History Ondansetron [Zofran] 4 mg PO DAILY PRN 12/26/23 01/05/24 History hydrOXYzine HCL [Atarax] 25 mg PO HS 12/26/23 01/05/24 History Allergies Allergy/AdvReac Type Severity Reaction Status Date / Time metronidazole [From Flagyl] Allergy Itching, Verified 01/05/24 10:29 BURNING OF SKIN Physical Exam Vitals: Vital Signs Temp Pulse Resp BP Pulse Ox 01/05/24 07:00 98 F 85 18 101/65 100 01/05/24 03:30 88 18 101/65 99 01/05/24 03:25 97.9 F 86 18 111/71 99 01/05/24 01:43 97.9 F 89 18 110/78 100 01/05/24 01:23 97.9 F 90 18 98/69 100 01/05/24 01:10 98 F 84 18 115/65 100 01/05/24 01:00 84 18 113/73 99 01/04/24 23:45 97.9 F 92 18 106/63 100 01/04/24 23:25 98 F 103 H 20 105/62 97 01/04/24 23:18 98 F 96 18 101/62 97 01/04/24 22:52 97 20 118/64 100 01/04/24 22:03 98.7 F 99 18 116/67 99 01/04/24 20:58 98.8 F 107 H 18 106/81 96 Intake and Output 01/04/24 01/05/24 01/05/24 22:59 06:59 14:59 Intake Total 620 Balance 620 Intake: Blood Product 620 Rc Irr As1 Unit 310 [id number] Rc Irr As1 Unit 310 [id number] Other: Weight 45.813 kg - Constitutional General appearance: cooperative, mild distress - EENT Eyes: EOMI - Respiratory Respiratory: bilateral: CTA - Cardiovascular Rhythm: regular - Gastrointestinal General gastrointestinal: no distended, soft, tenderness Localized gastrointestinal: tender: diffuse - Integumentary Integumentary: pale - Neurologic Neurologic: CNII-XII intact Results CBC & Chem 7: 01/05/24 07:52 01/05/24 07:52 Labs: Abnormal Lab Results - Last 24 Hours (Table) 01/04/24 01/04/24 01/04/24 Range/Units 21:18 21:19 21:19 WBC 20.0 H (3.8-10.6) k/uL RBC 1.78 L (3.80-5.40) m/uL Hgb 4.5 L* D (11.4-16.0) gm/dL Hct 15.7 L* (34.0-46.0) % MCHC 28.7 L (31.0-37.0) g/dL RDW 24.5 H (11.5-15.5) % Plt Count 1882 H* (150-450) k/uL Neutrophils # (Manual) 16.60 H (1.3-7.7) k/uL Basophils # (Manual) 0.40 H (0-0.2) k/uL Metamyelocytes # (Man) 0.60 H (0) k/uL Myelocytes # (Manual) 0.40 H (0) k/uL Nucleated RBCs 4 H (0-0) /100 WBC Sodium 135 L (137-145) mmol/L BUN 23 H (7-17) mg/dL Iron 14 L (50-170) UG/DL % Saturation 3.41 L (12.00-45.00) Total Protein 5.7 L (6.3-8.2) g/dL Crossmatch See Detail Assessment and Plan (1) CML (chronic myelocytic leukemia) Current Visit: Yes Status: Chronic Code(s): C92.10 - CHRONIC MYELOID LEUK, BCR/ABL-POSITIVE, NOT ACHIEVE REMIS SNOMED Code(s): 64799767 (2) Iron deficiency anemia Current Visit: No Status: Acute Code(s): D50.9 - IRON DEFICIENCY ANEMIA, UNSPECIFIED SNOMED Code(s): 30224781 Plan: #Iron deficiency anemia -Admitted on 12/27/2023 and received 2 units of packed red blood cells for hem oglobin 4.5 with appropriate response to 8.4 -Outpatient CBC on 01/04/2024 revealed hemoglobin of 5.5 with hemoglobin of 4.5 on initial labs -Iron saturation noted to be 3.41% on labs from admission with recent vitamin B12 and folic acid in October 2023 being normal. Outpatient feraheme was given on 11/12/2023 and 11/19/2023 -Clinically, she has been having melena with weakness, fatigue, and orthostatic dizziness -2 units of packed red blood cells have been given with posttransfusion hemoglobin of 6.8 -Recommend holding Gleevac inpatient -Given the acute drop in hemoglobin over a period of 1 week, I do recommend endoscopic evaluation for GI bleeding, as she has had this in the past -Ferritin will be ordered from labs on admission -IV iron will be started inpatient -Additional unit of packed red blood cells has also been ordered -Change PPI to 40 mg IV twice daily #CML -Currently on Gleevec, which has been held intermittently due to concern for intolerance -She was taking this for 2 weeks prior to her admission last week -She did resume this following discharge and last took this yesterday -Recommend holding Gleevec inpatient Luis Hernandez MD
[2024-01-05 13:25] LABS: Ferritin 21.6 ng/mL (10.0-291.0)
--- NOTE | 2024-01-05 13:56 | P.HPIM ---
History of Present Illness H&P Date: 01/05/24 History of present illness; patient 63-year-old lady with past medical history significant for CML, anemia up in the ER because of abnormal labs. Patient was recently admitted in the hospital in November for similar complaints at which time patient was worked up for acute bleeding and it was attributed to her CML. Patient was being seen outpatient by her PCP at which time they did blood work later they called her yesterday stating that her hemoglobin was low. Patient states that she has been noticing that he was more short of breath, shortness of breath upon exertion. Patient also complaining of weakness. Patient was complaining of her stools being dark. Patient was complaining of intermittent abdominal pain. Denies any complaint of nausea, vomiting or altered bowel movements. Because of these abnormal labs, patient was sent to the ER Initial lab work done in the ER showed WBC 20, hemoglobin 4.5, platelet count 1882, sodium 135, potassium 4.2, BUN 23, magnesium 1.7, iron 14, iron saturation 3.41 total protein 5.7 UA negative for infection EKG done in the ER showed heart rate of10 , no ST segment elevation or depression seen, no T-wave inversions seen. Patient admitted to internal medicine service REVIEW OF SYSTEMS: CONSTITUTIONAL: No fever, no malaise, no fatigue. HEENT: No recent visual problems or hearing problems. Denied any sore throat. CARDIOVASCULAR: As mentioned above PULMONARY: As mentioned above GASTROINTESTINAL: No diarrhea, no nausea, no vomiting, no abdominal pain. NEUROLOGICAL: No headaches, no weakness, no numbness. HEMATOLOGICAL: Denies any bleeding or petechiae. GENITOURINARY: Denies any burning micturition, frequency, or urgency. MUSCULOSKELETAL/RHEUMATOLOGICAL: Denies any joint pain, swelling, or any muscle pain. ENDOCRINE: Denies any polyuria or polydipsia. The rest of the 14-point review of systems is negative. PHYSICAL EXAMINATION: GENERAL: The patient is alert and oriented x3, not in any acute distress. Well developed, well nourished. HEENT: Pupils are round and equally reacting to light. EOMI. No scleral icterus. No conjunctival pallor. Normocephalic, atraumatic. No pharyngeal erythema. No thyromegaly. CARDIOVASCULAR: S1 and S2 present. No murmurs, rubs, or gallops. PULMONARY: Chest is clear to auscultation, no wheezing or crackles. ABDOMEN: Soft, nontender, nondistended, normoactive bowel sounds. No palpable organomegaly. MUSCULOSKELETAL: No joint swelling or deformity. EXTREMITIES: No cyanosis, clubbing, or pedal edema. NEUROLOGICAL: Gross neurological examination did not reveal any focal deficits. SKIN: No rashes. Assessment and plan Intermatic anemia Chronic myeloid leukemia Essential thrombocythemia Monitor vital signs Monitor CBC Monitor CMP Continue telemetry monitoring Monitor H&H Patient will receive 2 units of packed red blood cells in the ER Ordered anemia workup Ordered FOBT Start IV Protonix Consult hematology oncology Consult surgery for workup for anemia, no GI coverage at this time Labs and medication were reviewed.. Continue same treatment. Continue with symptomatic treatment. Resume home medication. Monitor labs and vitals. DVT and GI prophylaxis. Further recommendations as per clinical course of the patient Dictation was produced using [employer] dictation software. please excuse any grammatical, word or spelling errors. Past Medical History Past Medical History: GERD/Reflux, Pneumonia, Rheumatoid Arthritis (RA) Additional Past Medical History / Comment(s): IP ADMISSION FORGASTRIC ULCER IN MAY 2022 WITH HIGH PLATELET & WHITE COUNT THROMBYTOSIS- (SEES DR REBOLLEDO). COPD, leukoplakia of the vocal cords, chronic shoulder back and neck pain, acid reflux, depression, raynaud's syndrome. takes aldactone for hair loss. CML History of Any Multi-Drug Resistant Organisms: MRSA Date of last positivie culture/infection: 05/03/19 MDRO Source:: MRSA FACE Past Surgical History: Back Surgery, Cholecystectomy, Hernia Repair, Orthopedic Surgery, Tonsillectomy Additional Past Surgical History / Comment(s): arthroscopic shoulder, vocal cord scraping, dariana fundoplasty, CERVICAL FUSSION, recent EGD, colonoscopy. VENTRAL HERNIA. Past Anesthesia/Blood Transfusion Reactions: Blood Transfusion Reaction Additional Past Anesthesia/Blood Transfusion Reaction / Comment(s): TRANSFUSIONS WITH GASTRIC ULCER, no previous reactions Past Psychological History: Anxiety, Depression Smoking Status: Current some day smoker Past Alcohol Use History: None Reported Past Drug Use History: None Reported - Past Family History Mother History Unknown: Yes Family Medical History: Cancer Father Family Medical History: Unable to Obtain Medications and Allergies Home Medications Medication Instructions Recorded Confirmed Type Gabapentin 800 mg PO QID 05/01/14 01/05/24 History Topiramate 100 mg PO BID 05/01/14 01/05/24 History HYDROcodone/APAP 7.5-325MG [[place] 1 tab PO QID 03/11/16 01/05/24 History 7.5-325] Baclofen [Lioresal] 20 mg PO HS 07/02/17 01/05/24 History Sertraline [Zoloft] 50 mg PO DAILY 07/02/17 01/05/24 History buPROPion XL [Wellbutrin XL] 300 mg PO DAILY 07/02/17 01/05/24 History Multivit with Calcium,Iron,Min 1 tab PO DAILY 10/21/19 01/05/24 History [Women's Multivitamin] Spironolactone [Aldactone] 25 mg PO DAILY 12/21/21 01/05/24 History Aspirin [Adult Low Dose Aspirin EC] 81 mg PO DAILY 06/07/22 01/05/24 History Omeprazole [PriLOSEC] 20 mg PO AC-BRKFST #90 cap 06/09/22 01/05/24 Rx Clindamycin Phosphate 1 applic TOPICAL BID 01/16/23 01/05/24 History Tretinoin [Tretinoin 0.025%] 1 applic TOPICAL HS 01/16/23 01/05/24 History Lactulose [Cephulac] 30 gm PO BID PRN #600 ml 01/20/23 01/05/24 Rx Albuterol Inhaler [Ventolin Hfa 1 puff INHALATION RT-Q6H PRN 11/05/23 01/05/24 History Inhaler] Imatinib Mesylate 400 mg PO W/SUPPER 12/26/23 01/05/24 History Ondansetron [Zofran] 4 mg PO DAILY PRN 12/26/23 01/05/24 History hydrOXYzine HCL [Atarax] 25 mg PO HS 12/26/23 01/05/24 History Allergies Allergy/AdvReac Type Severity Reaction Status Date / Time metronidazole [From Flagyl] Allergy Itching, Verified 01/05/24 10:29 BURNING OF SKIN Physical Exam Vitals: Vital Signs Temp Pulse Resp BP Pulse Ox 01/05/24 09:20 85 18 102/69 97 01/05/24 08:36 18 01/05/24 08:32 98.2 F 81 18 107/68 88 L 01/05/24 07:00 98 F 85 18 101/65 100 01/05/24 03:30 88 18 101/65 99 01/05/24 03:25 97.9 F 86 18 111/71 99 01/05/24 01:43 97.9 F 89 18 110/78 100 01/05/24 01:23 97.9 F 90 18 98/69 100 01/05/24 01:10 98 F 84 18 115/65 100 01/05/24 01:00 84 18 113/73 99 01/04/24 23:45 97.9 F 92 18 106/63 100 01/04/24 23:25 98 F 103 H 20 105/62 97 01/04/24 23:18 98 F 96 18 101/62 97 01/04/24 22:52 97 20 118/64 100 01/04/24 22:03 98.7 F 99 18 116/67 99 01/04/24 20:58 98.8 F 107 H 18 106/81 96 Intake and Output 01/04/24 01/05/24 01/05/24 22:59 06:59 14:59 Intake Total 620 Balance 620 Intake: Blood Product 620 Rc Irr As1 Unit 310 [id number] Rc Irr As1 Unit 310 [id number] Other: Weight 45.813 kg Results CBC & Chem 7: 01/05/24 07:52 01/05/24 07:52 Labs: Abnormal Lab Results - Last 24 Hours (Table) 01/04/24 01/04/24 01/04/24 Range/Units 21:18 21:19 21:19 WBC 20.0 H (3.8-10.6) k/uL RBC 1.78 L (3.80-5.40) m/uL Hgb 4.5 L* D (11.4-16.0) gm/dL Hct 15.7 L* (34.0-46.0) % MCHC 28.7 L (31.0-37.0) g/dL RDW 24.5 H (11.5-15.5) % Plt Count 1882 H* (150-450) k/uL Neutrophils # (Manual) 16.60 H (1.3-7.7) k/uL Monocytes # (Manual) (0-1.0) k/uL Eosinophils # (Manual) (0-0.7) k/uL Basophils # (Manual) 0.40 H (0-0.2) k/uL Metamyelocytes # (Man) 0.60 H (0) k/uL Myelocytes # (Manual) 0.40 H (0) k/uL Nucleated RBCs 4 H (0-0) /100 WBC Sodium 135 L (137-145) mmol/L Chloride (98-107) mmol/L BUN 23 H (7-17) mg/dL Iron 14 L (50-170) UG/DL % Saturation 3.41 L (12.00-45.00) Total Protein 5.7 L (6.3-8.2) g/dL Albumin (3.5-5.0) g/dL Crossmatch See Detail 01/05/24 01/05/24 Range/Units 07:52 07:52 WBC 14.8 H (3.8-10.6) k/uL RBC 2.54 L (3.80-5.40) m/uL Hgb 6.8 L* D (11.4-16.0) gm/dL Hct 22.2 L (34.0-46.0) % MCHC 30.8 L (31.0-37.0) g/dL RDW 21.1 H (11.5-15.5) % Plt Count 1461 H* (150-450) k/uL Neutrophils # (Manual) 11.20 H (1.3-7.7) k/uL Monocytes # (Manual) 1.04 H (0-1.0) k/uL Eosinophils # (Manual) 0.74 H (0-0.7) k/uL Basophils # (Manual) 0.30 H (0-0.2) k/uL Metamyelocytes # (Man) 0.15 H (0) k/uL Myelocytes # (Manual) 0.30 H (0) k/uL Nucleated RBCs 2 H (0-0) /100 WBC Sodium (137-145) mmol/L Chloride 108 H (98-107) mmol/L BUN 19 H (7-17) mg/dL Iron (50-170) UG/DL % Saturation (12.00-45.00) Total Protein 5.1 L (6.3-8.2) g/dL Albumin 3.1 L (3.5-5.0) g/dL Crossmatch
--- NOTE | 2024-01-05 15:03 | P.GSCN ---
History of Present Illness Consult date: 01/05/24 History of present illness: CHIEF COMPLAINT: GI bleed HISTORY OF PRESENT ILLNESS: The patient is a 63-year-old female recently discharged 1 week ago for acute blood loss anemia and GI bleed. She was discharged December 29, 2023, 7 days ago without upper and lower endoscopy being performed. Last upper endoscopy May 2023, several months ago for gastritis. Patient reports worsening abdominal pain including of the epigastrium with dark tarry stools. She presented with a hemoglobin 4.5. She has been given 3 units of blood and hemoglobin is up to 6.8. She comes in underweight, BMI 16.8. She has personal history of CML and had been on Gleevec. Patient is being seen by oncologist. PAST MEDICAL HISTORY: See list and reviewed PAST SURGICAL HISTORY: See list and reviewed MEDICATIONS: See list and reviewed ALLERGIES: See list and reviewed SOCIAL HISTORY: See list and reviewed FAMILY HISTORY: See list and reviewed REVIEW OF ORGAN SYSTEMS: CONSTITUTIONAL: No fevers or chills. Underweight, BMI 16.8. EYES: Denies any trouble with vision. No glasses. HEENT: No difficulties with hearing. No nosebleeds. No difficulty swallowing. History of leukoplakia of the vocal cords. RESPIRATORY: Past history of pneumonia. Has tobacco abuse disorder. Has chronic obstructive pulmonary disease. CARDIOVASCULAR: Denies any chest pain, palpitations, or recent heart attacks. GASTROINTESTINAL: See above. Has change in bowel habits with epigastric ab dominal pain and dark stools. She has personal history of gastric ulcers. Has gastroesophageal reflux disease. History of Fab fundoplasty. GENITOURINARY: Denies any blood in urine or increased urinary frequency. NEUROLOGICAL: Denies any numbness or tingling along the distal extremities. No seizure disorders or headaches. MUSCULOSKELETAL: Has back pain, stiffness or joint arthritis. Has rheumatoid arthritis. Has cervical fusion. SKIN: No current skin cancer. No rash. PSYCHIATRIC: Has generalized anxiety depression. ENDOCRINE: Denies current thyroid disorders. Denies any blood sugar glucose intolerance. HEME/LYMPHATIC: Denies any lumps and bumps around the neck. No recent deep renan ous thrombosis. Has Raynaud's phenomenon. Has CML. ALLERGY/IMMUNOLOGY: No immunoglobulin therapy. No immune deficiencies. History of MRSA. BREAST: Denies current breast lumps, pain or nipple discharge. PHYSICAL EXAM: VITALS: Reviewed CONSTITUTIONAL: Well developed and in no acute distress. EYES: Conjuctivae without sclera icterus. Extraocular movements grossly intact. HEAD, EARS, NOSE, THROAT: Moist buccal mucosa. Head is atraumatic, normocephalic. Hears conversational speech. No nasal drainage. NECK: Supple. No JV distention. No thyroidomegaly. RESPIRATORY: Non-labored respirations and equal bilateral excursions. No gross wheezes. CARDIOVASCULAR: Palpable 2+ radial pulses. ABDOMEN: Scaphoid. No peritonitis. Mild epigastric tenderness. LYMPH: No neck lymphadenopathy. MUSCULOSKELETAL: No clubbing cyanosis or edema SKIN: Warm and well perfused with good skin turgor. NEUROLOGIC: Cranial nerves II through XII grossly intact. No focal or lateralizing signs. PSYCH: Appropriate affect. Alert and oriented to person, place and time. Displays appropriate insight. CLINCAL LABS: Reviewed. Hemoglobin admission 4.5. Hemoglobin after 2 units packed RBCs 6.8 in 24 hours. Platelets elevated 1882 down to 1461, thrombocytosis. Total protein low 5.1. Albumin low 3.1. WBC down to 20,000 and 14,000. IMAGING: Independently reviewed. CT of the abdomen pelvis on 12/27/2023 independently reviewed demonstrates severe splenomegaly where of spleen larger than liver. No presence of small bowel obstruction. No free air. Moderate retained stool. This is my independent interpretation. RADIOLOGY: Report reviewed. CT report above reviewed demonstrates adrenal hyperplasia. Presence of pancreatic duct dilation. Presence of intraductal hepatic dilation. Accessory spleen present including 17 cm spleen. Nonobstructing renal calculi. MRCP recommended. RECORDS: previous old records reviewed. Hospital records from 12/29/2019 for discharge reviewed demonstrating upper endoscopy endoscopies were deferred due to recent endoscopy May 2023. Hemoglobin was 8.4 on discharge. ASSESSMENT: 1. Abdominal pain with acute blood loss anemia, hemoglobin 4.5 on admission from 8.4 at recent discharge 2. GI bleed due to gastric ulcer 3. CML 4. Splenomegaly 5. Underweight, BMI 16.8 6. Tobacco abuse disorder with COPD 7. Thrombocytosis 8. Hypoalbuminemia with hypoproteinemia 9. Epigastric abdominal pain with melena PLAN: 1. IV fluid hydration. 2. Discontinue all medications which may contribute to bleeding including avoiding blood thinners such as heparin 3. Management of transfusion per hematology with goal hemoglobin of 7.0 4. Recommend endoscopies during this admission including upper endoscopy 5. Patient is requesting consultation to GI service for endoscopies 6. Patient at elevated risk for rebleeds. ADVANCE DIRECTIVE: Thank you for this kind consultation. Past Medical History Past Medical History: GERD/Reflux, Pneumonia, Rheumatoid Arthritis (RA) Additional Past Medical History / Comment(s): IP ADMISSION FORGASTRIC ULCER IN MAY 2022 WITH HIGH PLATELET & WHITE COUNT THROMBYTOSIS- (SEES DR REBOLLEDO). COPD, leukoplakia of the vocal cords, chronic shoulder back and neck pain, acid reflux, depression, raynaud's syndrome. takes aldactone for hair loss. CML History of Any Multi-Drug Resistant Organisms: MRSA Year Discovered:: 05/03/19 MDRO Source:: MRSA FACE Past Surgical History: Back Surgery, Cholecystectomy, Hernia Repair, Orthopedic Surgery, Tonsillectomy Additional Past Surgical History / Comment(s): arthroscopic shoulder, vocal cord scraping, fab fundoplasty, CERVICAL FUSSION, recent EGD, colonoscopy. VENTRAL HERNIA. Past Anesthesia/Blood Transfusion Reactions: Blood Transfusion Reaction Additional Past Anesthesia/Blood Transfusion Reaction / Comm: TRANSFUSIONS WITH GASTRIC ULCER, no previous reactions Past Psychological History: Anxiety, Depression Smoking Status: Current some day smoker Past Alcohol Use History: None Reported Past Drug Use History: None Reported - Past Family History Mother History Unknown: Yes Family Medical History: Cancer Father Family Medical History: Unable to Obtain Medications and Allergies Home Medications Medication Instructions Recorded Confirmed Type Gabapentin 800 mg PO QID 05/01/14 01/05/24 History Topiramate 100 mg PO BID 05/01/14 01/05/24 History HYDROcodone/APAP 7.5-325MG [[place] 1 tab PO QID 03/11/16 01/05/24 History 7.5-325] Baclofen [Lioresal] 20 mg PO HS 07/02/17 01/05/24 History Sertraline [Zoloft] 50 mg PO DAILY 07/02/17 01/05/24 History buPROPion XL [Wellbutrin XL] 300 mg PO DAILY 07/02/17 01/05/24 History Multivit with Calcium,Iron,Min 1 tab PO DAILY 10/21/19 01/05/24 History [Women's Multivitamin] Spironolactone [Aldactone] 25 mg PO DAILY 12/21/21 01/05/24 History Aspirin [Adult Low Dose Aspirin EC] 81 mg PO DAILY 06/07/22 01/05/24 History Omeprazole [PriLOSEC] 20 mg PO AC-BRKFST #90 cap 06/09/22 01/05/24 Rx Clindamycin Phosphate 1 applic TOPICAL BID 01/16/23 01/05/24 History Tretinoin [Tretinoin 0.025%] 1 applic TOPICAL HS 01/16/23 01/05/24 History Lactulose [Cephulac] 30 gm PO BID PRN #600 ml 01/20/23 01/05/24 Rx Albuterol Inhaler [Ventolin Hfa 1 puff INHALATION RT-Q6H PRN 11/05/23 01/05/24 History Inhaler] Imatinib Mesylate 400 mg PO W/SUPPER 12/26/23 01/05/24 History Ondansetron [Zofran] 4 mg PO DAILY PRN 12/26/23 01/05/24 History hydrOXYzine HCL [Atarax] 25 mg PO HS 12/26/23 01/05/24 History Allergies Allergy/AdvReac Type Severity Reaction Status Date / Time metronidazole [From Flagyl] Allergy Itching, Verified 01/05/24 10:29 BURNING OF SKIN Surgical - Exam Vital Signs Temp Pulse Resp BP Pulse Ox 98.8 F 107 H 18 106/81 96 01/04/24 20:58 01/04/24 20:58 01/04/24 20:58 01/04/24 20:58 01/04/24 20:58 Results - Labs 01/05/24 07:52 01/05/24 07:52 Abnormal Lab Results - Last 24 Hours (Table) 01/04/24 01/04/24 01/04/24 Range/Units 21:18 21:19 21:19 WBC 20.0 H (3.8-10.6) k/uL RBC 1.78 L (3.80-5.40) m/uL Hgb 4.5 L* D (11.4-16.0) gm/dL Hct 15.7 L* (34.0-46.0) % MCHC 28.7 L (31.0-37.0) g/dL RDW 24.5 H (11.5-15.5) % Plt Count 1882 H* (150-450) k/uL Neutrophils # (Manual) 16.60 H (1.3-7.7) k/uL Monocytes # (Manual) (0-1.0) k/uL Eosinophils # (Manual) (0-0.7) k/uL Basophils # (Manual) 0.40 H (0-0.2) k/uL Metamyelocytes # (Man) 0.60 H (0) k/uL Myelocytes # (Manual) 0.40 H (0) k/uL Nucleated RBCs 4 H (0-0) /100 WBC Sodium 135 L (137-145) mmol/L Chloride (98-107) mmol/L BUN 23 H (7-17) mg/dL Iron 14 L (50-170) UG/DL % Saturation 3.41 L (12.00-45.00) Total Protein 5.7 L (6.3-8.2) g/dL Albumin (3.5-5.0) g/dL Crossmatch See Detail 01/05/24 01/05/24 Range/Units 07:52 07:52 WBC 14.8 H (3.8-10.6) k/uL RBC 2.54 L (3.80-5.40) m/uL Hgb 6.8 L* D (11.4-16.0) gm/dL Hct 22.2 L (34.0-46.0) % MCHC 30.8 L (31.0-37.0) g/dL RDW 21.1 H (11.5-15.5) % Plt Count 1461 H* (150-450) k/uL Neutrophils # (Manual) 11.20 H (1.3-7.7) k/uL Monocytes # (Manual) 1.04 H (0-1.0) k/uL Eosinophils # (Manual) 0.74 H (0-0.7) k/uL Basophils # (Manual) 0.30 H (0-0.2) k/uL Metamyelocytes # (Man) 0.15 H (0) k/uL Myelocytes # (Manual) 0.30 H (0) k/uL Nucleated RBCs 2 H (0-0) /100 WBC Sodium (137-145) mmol/L Chloride 108 H (98-107) mmol/L BUN 19 H (7-17) mg/dL Iron (50-170) UG/DL % Saturation (12.00-45.00) Total Protein 5.1 L (6.3-8.2) g/dL Albumin 3.1 L (3.5-5.0) g/dL Crossmatch Diabetes panel 01/04/24 01/05/24 Range/Units 21:19 07:52 Sodium 135 L 137 (137-145) mmol/L Potassium 4.2 4.5 (3.5-5.1) mmol/L Chloride 105 108 H (98-107) mmol/L Carbon Dioxide 23 23 (22-30) mmol/L BUN 23 H 19 H (7-17) mg/dL Creatinine 0.90 0.89 (0.52-1.04) mg/dL Glucose 88 91 (74-99) mg/dL Calcium 9.1 8.5 (8.4-10.2) mg/dL AST 35 27 (14-36) U/L ALT 21 17 (4-34) U/L Alkaline Phosphatase 59 51 (38-126) U/L Total Protein 5.7 L 5.1 L (6.3-8.2) g/dL Albumin 3.6 3.1 L (3.5-5.0) g/dL Calcium panel 01/04/24 01/05/24 Range/Units 21:19 07:52 Calcium 9.1 8.5 (8.4-10.2) mg/dL Phosphorus 3.6 (2.5-4.5) mg/dL Albumin 3.6 3.1 L (3.5-5.0) g/dL Pituitary panel 01/04/24 01/05/24 Range/Units 21:19 07:52 Sodium 135 L 137 (137-145) mmol/L Potassium 4.2 4.5 (3.5-5.1) mmol/L Chloride 105 108 H (98-107) mmol/L Carbon Dioxide 23 23 (22-30) mmol/L BUN 23 H 19 H (7-17) mg/dL Creatinine 0.90 0.89 (0.52-1.04) mg/dL Glucose 88 91 (74-99) mg/dL Calcium 9.1 8.5 (8.4-10.2) mg/dL Adrenal panel 01/04/24 01/05/24 Range/Units 21:19 07:52 Sodium 135 L 137 (137-145) mmol/L Potassium 4.2 4.5 (3.5-5.1) mmol/L Chloride 105 108 H (98-107) mmol/L Carbon Dioxide 23 23 (22-30) mmol/L BUN 23 H 19 H (7-17) mg/dL Creatinine 0.90 0.89 (0.52-1.04) mg/dL Glucose 88 91 (74-99) mg/dL Calcium 9.1 8.5 (8.4-10.2) mg/dL Total Bilirubin 0.3 0.5 (0.2-1.3) mg/dL AST 35 27 (14-36) U/L ALT 21 17 (4-34) U/L Alkaline Phosphatase 59 51 (38-126) U/L Total Protein 5.7 L 5.1 L (6.3-8.2) g/dL Albumin 3.6 3.1 L (3.5-5.0) g/dL
[2024-01-05] MEDS: ONDANSETRON 4 MG/2 ML VIAL IVP STA (19:59)
[2024-01-05] MEDS: GABAPENTIN 400 MG CAP PO SCH (22:08)
[2024-01-05] MEDS: BACLOFEN 10 MG TAB PO SCH (22:08)
[2024-01-05] MEDS: hydrOXYzine HCL 25 MG TAB PO SCH (22:08)
[2024-01-05] MEDS: TOPIRAMATE 100 MG TAB PO SCH (22:08)
[2024-01-06 07:22] LABS: Anisocytosis Moderate; HCT 25.8 % (34.0-46.0); HGB 8.2 gm/dL (11.4-16.0); Hypochromasia Marked; MCH 27.8 pg (25.0-35.0); MCHC 31.6 g/dL (31.0-37.0); MCV 88.1 fL (80.0-100.0); Mean Platelet Volume 8.1; Poikilocytosis Marked; RBC 2.93 m/uL (3.80-5.40); RDW 20.3 % (11.5-15.5)
[2024-01-06 07:54] LABS: ALT 15 U/L (4-34); AST 29 U/L (14-36); African American GFR (CKD) 87 (>60 ml/min/1.73 sqM); Albumin 2.7 g/dL (3.5-5.0); Alkaline Phosphatase 49 U/L (38-126); Anion Gap 4 mmol/L; Blood Urea Nitrogen 13 mg/dL (7-17); Calcium 8.6 mg/dL (8.4-10.2); Carbon Dioxide 24 mmol/L (22-30); Chloride 111 mmol/L (98-107); Glucose 75 mg/dL (74-99); Non-African American GFR(CKD) 75 (>60 ml/min/1.73 sqM); Potassium 4.6 mmol/L (3.5-5.1); Sodium 139 mmol/L (137-145); Total Bilirubin 0.3 mg/dL (0.2-1.3); Total Protein 4.6 g/dL (6.3-8.2)
[2024-01-06 08:35] LABS: Band Neutrophils % 1 %; Basophils # (M) 0.59 k/uL (0-0.2); Eosinophils # (M) 0.71 k/uL (0-0.7); Lymphocytes # (M) 1.42 k/uL (1.0-4.8); Monocytes # (M) 1.53 k/uL (0-1.0); Neutrophils % (M) 63 %; Nucleated Red Blood Cells 4 /100 WBC (0-0); Total Cells Counted 100; WBC 11.8 k/uL (3.8-10.6)
[2024-01-06 08:36] LABS: Polychromasia Present
[2024-01-06 08:37] LABS: Large Platelets Present; Target Cells Present
[2024-01-06 08:38] LABS: Platelet Count 1347 k/uL (150-450)
[2024-01-06] MEDS: ONDANSETRON 4 MG/2 ML VIAL IVP PRN (10:00)
[2024-01-06] MEDS ORDERED: ALBUTEROL HFA INHALER INHALATION PRN (10:13)
[2024-01-06] MEDS: buPROPion XL 300 MG TAB.ER.24H PO SCH (11:32)
[2024-01-06] MEDS: SPIRONOLACTONE 25 MG TAB PO SCH (11:37)
[2024-01-06] MEDS: LACTULOSE 20 GM/30 ML CUP PO PRN (11:40)
--- NOTE | 2024-01-06 13:05 | P.PN ---
Subjective Progress Note Date: 01/06/24 patient 63-year-old lady with past medical history significant for CML, anemia up in the ER because of abnormal labs. Patient was recently admitted in the hospital in November for similar complaints at which time patient was worked up for acute bleeding and it was attributed to her CML. Patient was being seen outpatient by her PCP at which time they did blood work later they called her yesterday stating that her hemoglobin was low. Patient states that she has been noticing that he was more short of breath, shortness of breath upon exertion. Patient also complaining of weakness. Patient was complaining of her stools being dark. Patient was complaining of intermittent abdominal pain. Denies any complaint of nausea, vomiting or altered bowel movements. Because of these abnormal labs, patient was sent to the ER Initial lab work done in the ER showed WBC 20, hemoglobin 4.5, platelet count 1882, sodium 135, potassium 4.2, BUN 23, magnesium 1.7, iron 14, iron saturation 3.41 total protein 5.7 UA negative for infection EKG done in the ER showed heart rate of10 , no ST segment elevation or de pression seen, no T-wave inversions seen. Patient admitted to internal medicine service 01/05. Patient seen examined. Blood work done this morning showed WBC 9.8, hemoglobin 8.2, sodium 139, potassium 4.6, BUN 13, creatinine 0.84. General surgery recommend doing EGD, patient stated she is agreeable to do it. Denies any dark stools overnight REVIEW OF SYSTEMS: CONSTITUTIONAL: No fever, no malaise,. CARDIOVASCULAR: No chest pain, no palpitations, no syncope. PULMONARY: No shortness of breath, no cough, GASTROINTESTINAL: No diarrhea, no nausea, no vomiting, no abdominal pain. NEUROLOGICAL: No headaches, no weakness, PHYSICAL EXAMINATION: GENERAL: The patient is alert and oriented x3, cachectic, ill looking HEENT: Pupils are round and equally reacting to light. EOMI. No scleral icterus. No conjunctival pallor. Normocephalic, atraumatic. No pharyngeal erythema. No thyromegaly. CARDIOVASCULAR: S1 and S2 present. No murmurs, rubs, or gallops. PULMONARY: Chest is clear to auscultation, no wheezing or crackles. ABDOMEN: Soft, nontender, nondistended, normoactive bowel sounds. No palpable organomegaly. MUSCULOSKELETAL: No joint swelling or deformity. EXTREMITIES: No cyanosis, clubbing, or pedal edema. NEUROLOGICAL: Gross neurological examination did not reveal any focal deficits. SKIN: No rashes. Assessment and plan Symptomatic anemia Abdominal pain Splenomegaly Underweight with BMI of 17.2 Chronic myeloid leukemia Essential thrombocythemia Monitor vital signs Monitor CBC Monitor CMP Continue telemetry monitoring Continue IV Protonix continue IV iron Avoid NSAIDs and antiplatelets Continue home meds Hematology oncology following General Surgery following, recommend endoscopic evaluation Labs and medication were reviewed.. Continue same treatment. Continue with symptomatic treatment. Resume home medication. Monitor labs and vitals. DVT and GI prophylaxis. Further recommendations as per clinical course of the patient Dictation was produced using [employer] dictation software. please excuse any grammatical, word or spelling errors. Objective - Vital Signs Vital signs: Vital Signs Temp 98.1 F 01/06/24 03:31 Pulse 76 01/06/24 03:31 Resp 16 01/06/24 03:31 BP 94/60 01/06/24 03:31 Pulse Ox 98 01/06/24 03:31 FiO2 Intake & Output 01/05/24 01/06/24 01/06/24 18:59 06:59 18:59 Intake Total 0 550 Balance 0 550 Weight 45.813 kg 47 kg Intake: Oral 240 Blood Product 0 310 Rc Irr As1 Unit 0 310 [id number] Other: Voiding Method Toilet # Voids 2 1 - Labs CBC & Chem 7: 01/06/24 06:45 01/06/24 06:45 Labs: Abnormal Lab Results - Last 24 Hours (Table) 01/04/24 01/06/24 01/06/24 Range/Units 21:18 06:45 06:45 WBC 11.8 H (3.8-10.6) k/uL RBC 2.93 L (3.80-5.40) m/uL Hgb 8.2 L (11.4-16.0) gm/dL Hct 25.8 L (34.0-46.0) % RDW 20.3 H (11.5-15.5) % Plt Count 1347 H* (150-450) k/uL Monocytes # (Manual) 1.53 H (0-1.0) k/uL Eosinophils # (Manual) 0.71 H (0-0.7) k/uL Basophils # (Manual) 0.59 H (0-0.2) k/uL Nucleated RBCs 4 H (0-0) /100 WBC Chloride 111 H (98-107) mmol/L Total Protein 4.6 L (6.3-8.2) g/dL Albumin 2.7 L (3.5-5.0) g/dL Crossmatch See Detail
[2024-01-06] MEDS: SERTRALINE 50 MG TAB PO SCH (13:15)
--- NOTE | 2024-01-06 13:22 | P.PN ---
Subjective Progress Note Date: 01/06/24 Principal diagnosis: CML -Afebrile, no acute events overnight -Notes decreased fatigue and weakness today compared to admission -Did note mild pruritus with the third unit of packed red blood cells, which has resolved -She continues to have low back pain that is unchanged and denies any episodes of melena since admission Objective - Vital Signs Vital signs: Vital Signs Temp 98.5 F 01/06/24 11:45 Pulse 73 01/06/24 11:45 Resp 14 01/06/24 11:45 BP 91/56 01/06/24 11:45 Pulse Ox 98 01/06/24 11:45 FiO2 Intake & Output 01/05/24 01/06/24 01/06/24 18:59 06:59 18:59 Intake Total 0 550 Balance 0 550 Weight 45.813 kg 47 kg Intake: Oral 240 Blood Product 0 310 Rc Irr As1 Unit 0 310 [id number] Other: Voiding Method Toilet # Voids 2 1 - Constitutional General appearance: Present: cooperative, no acute distress - EENT Eyes: Present: EOMI - Respiratory Respiratory: bilateral: CTA - Cardiovascular Rhythm: regular - Gastrointestinal General gastrointestinal: Present: soft, tenderness. Absent: distended Localized gastrointestinal: tender: diffuse (No guarding) - Integumentary Integumentary: Present: pale. Absent: rash - Neurologic Neurologic: Present: CNII-XII intact. Absent: focal deficits - Psychiatric Psychiatric: Present: appropriate affect - Labs CBC & Chem 7: 01/06/24 06:45 01/06/24 06:45 Labs: Abnormal Lab Results - Last 24 Hours (Table) 01/04/24 01/06/24 01/06/24 Range/Units 21:18 06:45 06:45 WBC 11.8 H (3.8-10.6) k/uL RBC 2.93 L (3.80-5.40) m/uL Hgb 8.2 L (11.4-16.0) gm/dL Hct 25.8 L (34.0-46.0) % RDW 20.3 H (11.5-15.5) % Plt Count 1347 H* (150-450) k/uL Monocytes # (Manual) 1.53 H (0-1.0) k/uL Eosinophils # (Manual) 0.71 H (0-0.7) k/uL Basophils # (Manual) 0.59 H (0-0.2) k/uL Nucleated RBCs 4 H (0-0) /100 WBC Chloride 111 H (98-107) mmol/L Total Protein 4.6 L (6.3-8.2) g/dL Albumin 2.7 L (3.5-5.0) g/dL Crossmatch See Detail Assessment and Plan (1) CML (chronic myelocytic leukemia) Current Visit: Yes Status: Chronic Code(s): C92.10 - CHRONIC MYELOID LEUK, BCR/ABL-POSITIVE, NOT ACHIEVE REMIS SNOMED Code(s): 09466059 (2) Iron deficiency anemia Current Visit: No Status: Acute Code(s): D50.9 - IRON DEFICIENCY ANEMIA, UNSPECIFIED SNOMED Code(s): 89592212 Plan: #Iron deficiency anemia -Admitted on 12/27/2023 and received 2 units of packed red blood cells for hemoglobin 4.5 with appropriate response to 8.4 -Outpatient CBC on 01/04/2024 revealed hemoglobin of 5.5 with hemoglobin of 4.5 on initial labs -Iron saturation noted to be 3.41% on labs from admission with recent vitamin B12 and folic acid in October 2023 being normal. Outpatient feraheme was given on 11/12/2023 and 11/19/2023 -Clinically, she has been having melena with weakness, fatigue, and orthostatic dizziness -She has received 3 units of packed red blood cells since admission with a hemoglobin of 8.2, consistent with an appropriate response -Continue IV iron (currently day 2) with IV PPI daily -She has been evaluated by surgical team with plan for endoscopies this admission #CML -Currently on Gleevec, which has been held intermittently due to concern for intolerance -She was taking this for 2 weeks prior to her admission last week -She did resume this following discharge and last took this the day prior to current admission -Continue holding Gleevec inpatient #L3 compression fracture -Receiving Dilaudid as needed, stable -Can be further evaluated by orthopedics following endoscopies Luis Hernandez MD
--- NOTE | 2024-01-06 16:07 | P.PN ---
Subjective Progress Note Date: 01/06/24 CHIEF COMPLAINT: GI bleed HISTORY OF PRESENT ILLNESS: The patient is a 63-year-old female recently disc harged 1 week ago for acute blood loss anemia and GI bleed. She returned with hemoglobin down from 8.4 upon her recent discharge down to 4.5. She has been given 3 units of blood and her hemoglobin is now up to 8.2. Patient had complained of constipation and had been given a laxative per medicine. Patient now complains of abdominal cramping. Patient has recent history of dark stools with melena. REVIEW OF ORGAN SYSTEMS: CONSTITUTIONAL: No fevers or chills. Underweight, BMI 16.8. RESPIRATORY: Past history of pneumonia. Has tobacco abuse disorder. Has chronic obstructive pulmonary disease. CARDIOVASCULAR: Denies any chest pain, palpitations, or recent heart attacks. GASTROINTESTINAL: See above. Has change in bowel habits with epigastric abdominal pain and dark stools. She has personal history of gastric ulcers. Has gastroesophageal reflux disease. History of Fab fundoplasty. MUSCULOSKELETAL: Has back pain, stiffness or joint arthritis. Has rheumatoid arthritis. Has cervical fusion. HEME/LYMPHATIC: Denies any lumps and bumps around the neck. No recent deep venous thrombosis. Has Raynaud's phenomenon. Has CML. PHYSICAL EXAM: VITALS: Reviewed CONSTITUTIONAL: Well developed and in mild distress. EYES: Conjuctivae without sclera icterus. Extraocular movements grossly intact. HEAD, EARS, NOSE, THROAT: Moist buccal mucosa. Head is atraumatic, normocephalic. Hears conversational speech. No nasal drainage. RESPIRATORY: Non-labored respirations and equal bilateral excursions. No gross wheezes. CARDIOVASCULAR: Palpable 2+ radial pulses. ABDOMEN: Scaphoid. Diffuse abdominal pain without peritonitis. MUSCULOSKELETAL: No clubbing cyanosis or edema SKIN: Warm and well perfused with good skin turgor. NEUROLOGIC: Cranial nerves II through XII grossly intact. No focal or lateralizing signs. PSYCH: Appropriate affect. Alert and oriented to person, place and time. Displays appropriate insight. CLINCAL LABS: Reviewed. Hemoglobin admission 4.5. Hemoglobin today 8.2 after 3 units of blood ASSESSMENT: 1. Abdominal pain with acute blood loss anemia, hemoglobin 4.5 on admission from 8.4 at recent discharge 2. GI bleed due to gastric ulcer 3. CML 4. Splenomegaly 5. Underweight, BMI 16.8 6. Tobacco abuse disorder with COPD 7. Thrombocytosis 8. Hypoalbuminemia with hypoproteinemia 9. Epigastric abdominal pain with melena PLAN: 1. Per patient request, she is requesting avionics electronics technician to see her instead. Consultation for avionics electronics technician placed. 2. Discontinue lactulose due to active GI bleed which is contraindicated with current abdominal pain. Objective - Vital Signs Vital signs: Vital Signs Temp 98.3 F 01/06/24 15:55 Pulse 73 01/06/24 15:55 Resp 16 01/06/24 15:55 BP 131/83 01/06/24 15:55 Pulse Ox 100 01/06/24 15:55 FiO2 Intake & Output 01/05/24 01/06/24 01/06/24 18:59 06:59 18:59 Intake Total 0 550 240 Balance 0 550 240 Weight 45.813 kg 47 kg Intake: Oral 240 240 Blood Product 0 310 Rc Irr As1 Unit 0 310 [id number] Other: Voiding Method Toilet # Voids 2 1 - Labs CBC & Chem 7: 01/06/24 06:45 01/06/24 06:45 Labs: Abnormal Lab Results - Last 24 Hours (Table) 01/04/24 01/06/24 01/06/24 Range/Units 21:18 06:45 06:45 WBC 11.8 H (3.8-10.6) k/uL RBC 2.93 L (3.80-5.40) m/uL Hgb 8.2 L (11.4-16.0) gm/dL Hct 25.8 L (34.0-46.0) % RDW 20.3 H (11.5-15.5) % Plt Count 1347 H* (150-450) k/uL Monocytes # (Manual) 1.53 H (0-1.0) k/uL Eosinophils # (Manual) 0.71 H (0-0.7) k/uL Basophils # (Manual) 0.59 H (0-0.2) k/uL Nucleated RBCs 4 H (0-0) /100 WBC Chloride 111 H (98-107) mmol/L Total Protein 4.6 L (6.3-8.2) g/dL Albumin 2.7 L (3.5-5.0) g/dL Crossmatch See Detail
[2024-01-07] MEDS: MULTIVITAMINS, THERA 1 EACH TAB PO SCH (08:20)
--- NOTE | 2024-01-07 11:50 | P.PN ---
Subjective Progress Note Date: 01/07/24 CHIEF COMPLAINT: GI bleed HISTORY OF PRESENT ILLNESS: Patient reports she has had no further black stools. She is awaiting to be evaluated by GI service. She has required total of 3 units of blood during this admission. Hemoglobin 4.5 up to 8.2 as of yesterday. She denies any abdominal pain. PHYSICAL EXAM: VITAL SIGNS: Reviewed. GENERAL: no acute distress. ABDOMEN: Soft. Nondistended. Nontender. ASSESSMENT: 1. Acute blood loss anemia with dark stools. Hemoglobin 4.5 on admission requiring blood transfusions 2. Prior history of GI bleed with gastric ulcer 3. History of CML PLAN: -Awaiting GI evaluation and recommendations -Continue IV Protonix -Continue to monitor hemoglobin -Continue to monitor for any signs or symptoms of bleeding Physician Medical Planner note has been reviewed by physician. Signing provider agrees with the documented findings, assessment, and plan of care. Objective - Vital Signs Vital signs: Vital Signs Temp 98.2 F 01/07/24 08:15 Pulse 103 H 01/07/24 08:15 Resp 18 01/07/24 08:15 BP 105/67 01/07/24 08:15 Pulse Ox 99 01/07/24 08:15 FiO2 Intake & Output 01/06/24 01/07/24 01/07/24 18:59 06:59 18:59 Intake Total 240 1080 240 Balance 240 1080 240 Weight 46.8 kg Intake: Oral 240 1080 240 Other: Voiding Method Toilet Toilet Toilet # Voids 1 2 1 # Bowel Movements 0 - Labs CBC & Chem 7: 01/06/24 06:45 01/06/24 06:45
[2024-01-07] MEDS: polyethylene glycoL 3350 17 GM POWD.PACK PO SCH ×2 (12:10→21:56)
--- NOTE | 2024-01-07 12:36 | P.CONS ---
History of Present Illness - Reason for Consult Consult date: 01/07/24 GI bleed, patient scheduled in office Requesting physician: Yuliet Melgar - Chief Complaint Low hemoglobin, weakness - History of Present Illness Pleasant 63-year-old female who presented to the emergency department on 01/04/2024 sent in by her primary care physician after getting blood work done and concerns for anemia. She has a history of CML with chronic anemia and known iron deficiency anemia who requires parental iron infusions as needed. Patient follows with Dr. Dawkins she has been on Gleevec however was recently seen for symptomatic anemia and admitted on 12/27/2023 with a hemoglobin of 4.5 requiring blood transfusion at that time. Gleevec had been discontinued at that admission. She resumed the Gleevec 400 mg daily since discharge last took on 01/03/2024. 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 Carrero. she has had multiple workup for anemia including most recent upper endoscopy 06/11/[address] Alexis with findings of mild gastritis with no active bleeding. EGD with Dr. Alexis with findings of gastritis, previous to that in August 2022 EGD and colonoscopy with Dr. Candido Paris with findings of diverticulosis external hemorrhoids and EGD with findings of hemorrhagic gastritis with no active bleeding. In May 2022 finding of pyloric channel ulcer 2 to 3 mm with no active bleeding but thought to be the source of GI bleed. Patient states 3 days prior to her admission she was having very small bowel movements and straining which she reports is being black and tarry. Also having some abdominal discomfort with feeling full quickly and not eating much. She denies any blood thinners and no regular NSAID use. Hemoglobin was 4.5 on admission. She has been transfused 3 units of blood. Yesterday's hemoglobin 8.2. Patient also had mildly elevated BUN on admission now normal. Iron studies completed iron 14 saturation 3.4 ferritin 21.6 Review of Systems REVIEW OF SYSTEMS: CARDIOPULMONARY: No chest pain or shortness of breath. Gastrointestinal: Abdominal pain. No nausea or vomiting. No hematemesis, coffee-ground emesis. No rectal bleeding, patient reports black tarry stool 3 days prior to admission. Decreased appetite and feeling full. GENITOURINARY: No dysuria or hematuria. MUSCULOSKELETAL: Reports normal range of motion., Joint pain. SKIN: No rashes. No jaundice. ENDOCRINE: No chills, fevers. No excessive weight gain or loss. No polydipsia or polyuria. PSYCHIATRIC: Unremarkable. NEUROLOGY: No change in mental status. Denies dizziness, headache. ENT: Vision unremarkable. CONSTITUTIONAL: No recent weight loss. No fever, chills, night sweats. Generalized weakness. Past Medical History Past Medical History: Cancer, COPD, GERD/Reflux, Pneumonia, Rheumatoid Arthritis (RA) Additional Past Medical History / Comment(s): IP ADMISSION FORGASTRIC ULCER IN MAY 2022 WITH HIGH PLATELET & WHITE COUNT THROMBYTOSIS- (SEES DR DAWKINS). COPD, leukoplakia of the vocal cords, chronic shoulder back and neck pain, acid reflux, depression, raynaud's syndrome. takes aldactone for hair loss. CML History of Any Multi-Drug Resistant Organisms: MRSA Year Discovered:: 05/03/19 MDRO Source:: MRSA FACE Past Surgical History: Back Surgery, Cholecystectomy, Hernia Repair, Orthopedic Surgery, Tonsillectomy Additional Past Surgical History / Comment(s): arthroscopic shoulder, vocal cord scraping, dariana fundoplasty, CERVICAL FUSSION, recent EGD, colonoscopy. VENTRAL HERNIA. Past Anesthesia/Blood Transfusion Reactions: Blood Transfusion Reaction Additional Past Anesthesia/Blood Transfusion Reaction / Comm: TRANSFUSIONS WITH GASTRIC ULCER, no previous reactions Past Psychological History: Anxiety, Depression Additional Psychological History / Comment(s): hx suicidal ideaation Smoking Status: Current some day smoker Past Alcohol Use History: None Reported Additional Past Alcohol Use History / Comment(s): smoked <ppd since age of 20. started smoking again recently, says 1 pack will last her 3days. Past Drug Use History: None Reported - Past Family History Mother History Unknown: Yes Family Medical History: Cancer Father Family Medical History: Unable to Obtain Medications and Allergies Home Medications Medication Instructions Recorded Confirmed Type Gabapentin 800 mg PO QID 05/01/14 01/05/24 History Topiramate 100 mg PO BID 05/01/14 01/05/24 History HYDROcodone/APAP 7.5-325MG [[place] 1 tab PO QID 03/11/16 01/05/24 History 7.5-325] Baclofen [Lioresal] 20 mg PO HS 07/02/17 01/05/24 History Sertraline [Zoloft] 50 mg PO DAILY 07/02/17 01/05/24 History buPROPion XL [Wellbutrin XL] 300 mg PO DAILY 07/02/17 01/05/24 History Multivit with Calcium,Iron,Min 1 tab PO DAILY 10/21/19 01/05/24 History [Women's Multivitamin] Spironolactone [Aldactone] 25 mg PO DAILY 12/21/21 01/05/24 History Aspirin [Adult Low Dose Aspirin EC] 81 mg PO DAILY 06/07/22 01/05/24 History Omeprazole [PriLOSEC] 20 mg PO AC-BRKFST #90 cap 06/09/22 01/05/24 Rx Clindamycin Phosphate 1 applic TOPICAL BID 01/16/23 01/05/24 History Tretinoin [Tretinoin 0.025%] 1 applic TOPICAL HS 01/16/23 01/05/24 History Lactulose [Cephulac] 30 gm PO BID PRN #600 ml 01/20/23 01/05/24 Rx Albuterol Inhaler [Ventolin Hfa 1 puff INHALATION RT-Q6H PRN 11/05/23 01/05/24 History Inhaler] Imatinib Mesylate 400 mg PO W/SUPPER 12/26/23 01/05/24 History Ondansetron [Zofran] 4 mg PO DAILY PRN 12/26/23 01/05/24 History hydrOXYzine HCL [Atarax] 25 mg PO HS 12/26/23 01/05/24 History Allergies Allergy/AdvReac Type Severity Reaction Status Date / Time metronidazole [From Flagyl] Allergy Itching, Verified 01/05/24 10:29 BURNING OF SKIN Physical Exam Vitals: Vital Signs Temp Pulse Pulse Resp BP BP Pulse Ox 01/07/24 08:15 98.2 F 103 H 18 105/67 99 01/07/24 04:57 96.5 F L 82 16 94/59 94 L 01/07/24 02:00 16 01/07/24 00:40 96.5 F L 79 16 110/72 99 01/06/24 20:30 96.7 F L 82 16 123/77 99 01/06/24 20:00 82 16 01/06/24 15:55 98.3 F 73 16 131/83 100 01/06/24 14:00 16 01/06/24 11:45 98.5 F 73 14 91/56 98 Intake and Output 01/06/24 01/07/24 01/07/24 22:59 06:59 14:59 Intake Total 1080 240 Balance 1080 240 Intake: Oral 1080 240 Other: Voiding Method Toilet Toilet Toilet # Voids 1 2 1 # Bowel Movements 0 Weight 46.8 kg General appearance: The patient is alert, oriented, appears in no acute distress. HET: Head is normocephalic and atraumatic. Conjunctiva pink. Sclera anicteric. Neck: Supple without lymphadenopathy. Trachea midline. Heart: Regular. Lungs: Equal expansion, normal respiratory effort. Abdomen: Soft, diffuse abdominal tenderness, nondistended. Skin: No rashes. No jaundice. Extremities: Normal skin color and turgor. No pedal edema. Neurological: No focal deficits. Alert and oriented x3. Results CBC & Chem 7: 01/06/24 06:45 01/06/24 06:45 Assessment and Plan (1) Symptomatic anemia Narrative/Plan: 63-year-old female with longstanding history of anemia and CML. Has presented several times with symptomatic anemia. She has had several workups in the past with findings of pyloric channel ulcer with no active bleeding and also hemorrhagic gastritis with no active bleeding. Unclear etiology of anemia likely secondary to CML and treatment however patient is reporting black stool 3 days prior to coming in to the emergency department as well as some abdominal discomfort and increased fullness. Current Visit: Yes Status: Acute Priority: High Code(s): D64.9 - ANEMIA, UNSPECIFIED SNOMED Code(s): 699120372 (2) History of iron deficiency anemia Current Visit: Yes Status: Acute Code(s): Z86.2 - PRSNL HISTORY OF DIS OF [facility] BLD[facility] Code(s): 017789798 (3) CML (chronic myelocytic leukemia) Current Visit: Yes Status: Chronic Code(s): C92.10 - CHRONIC MYELOID LEUK, BCR/ABL-POSITIVE, NOT ACHIEVE REMIS SNOMED Code(s): 93361027 Plan: 1. Continue symptomatic and supportive care 2. Diet as tolerated, n.p.o. after midnight 3. Daily CBC, transfuse for hemoglobin less than 7 4. Continue with recommendations from oncology 5. Plan for upper endoscopy tomorrow Thank you for this consultation, we will continue to follow. Dr. Salo Rehman I agree with the dictator's note, documented as a scribe by Zoey Albert.
--- NOTE | 2024-01-07 15:09 | P.PN ---
Subjective Progress Note Date: 01/07/24 This is a 63-year-old female, recently discharged on 12/29/23 with similar clinical presentation, returned to the ER, after being notified that her hemoglobin was 5.5 in a patient with past medical history significant for CML on Gleevec, extensive workup within the last year for anemia.reports ongoing sympt omatic anemia, weakness, exertional dyspnea, fatigue, dizziness , nausea ,no vomiting with abdominal pain and worsening chronic back pain radiating down to left flank. Teary-eyed, frustrated over her significant weakness, unable to perform ADLs. Reports loose small dark tarry stools. denies fevers or chills. Transfused with 3 units of packed RBCs with current hemoglobin 8.2. Platelets decreased to 1347. GI consult in place with recommendations pending. Objective - Vital Signs Vital signs: Vital Signs Temp 98.2 F 01/07/24 08:15 Pulse 103 H 01/07/24 08:15 Resp 18 01/07/24 08:15 BP 105/67 01/07/24 08:15 Pulse Ox 99 01/07/24 08:15 FiO2 Intake & Output 01/06/24 01/07/24 01/07/24 18:59 06:59 18:59 Intake Total 240 1080 240 Balance 240 1080 240 Weight 46.8 kg Intake: Oral 240 1080 240 Other: Voiding Method Toilet Toilet Toilet # Voids 1 2 1 # Bowel Movements 0 - Exam VITAL SIGNS: [As above] GENERAL: Pale, thin female, alert and oriented x 3, sitting up in bed, no acute distress, teary-eyed HEENT: Normocephalic, atraumatic conjunctivae pale. eyes normal. Sclera anicteric NECK: Supple, no JVD. CARDIOVASCULAR: S1, S2 regular. No murmur RESPIRATION: Unlabored, equal air entry ,breath sounds diminished in the bases. ABDOMEN: Soft, nondistended, diffuse tenderness, no guarding. No rigidity, positive bowel sounds LEGS: No edema. no swelling NERVOUS SYSTEM: Cranial N 2-12 grossly normal. Moves all 4 limbs. No focal deficits. Strength and sensation grossly intact. Skin: Warm and dry, no rash - Labs CBC & Chem 7: 01/06/24 06:45 01/06/24 06:45 Assessment and Plan Assessment: Recurrent acute on chronic symptomatic severe anemia, related to CML. Status post multiple workups last year without evidence of GI bleed. Status post 3 units of packed RBCs CML, diagnosed December 2022 ,started treatments in February 2023 Acute on chronic thrombocytosis, related to the above Leukocytosis Chronic iron deficient anemia, receiving IV iron Chronic thoracic back pain and tenderness, prior MRI reported age-related degenerative changes throughout the thoracic spine with multilevel disc bulging most pronounced at T2-T3, central disc protrusion C6-C7. History of COPD, stable Hypertension GERD Rheumatoid arthritis History of anxiety/depression Continued ongoing nicotine dependence Moderate calorie protein malnutrition Plan: Continue on current medication regimen ,monitoring and symptomatic tr eatment. Evaluated by GI, patient is scheduled for EGD tomorrow. close monitoring of CBC. PPI in place for GI prophylaxis. The impression and plan of care has been dictated as directed. : I performed a history and examination of this patient, discussed the same with the dictator. I agree with the dictator's note ,documented as a scribe. Any additional findings or plans will be noted.
[2024-01-07 16:27] VITALS: BMI 17.2
[2024-01-07] MEDS ORDERED: polyethylene glycoL 3350 17 GM POWD.PACK PO SCH (21:00)
[2024-01-08 07:03] LABS: Anisocytosis Moderate; HCT 29.5 % (34.0-46.0); Hypochromasia Marked; MCH 27.5 pg (25.0-35.0); MCHC 30.4 g/dL (31.0-37.0); MCV 90.4 fL (80.0-100.0); Mean Platelet Volume 8.2; Poikilocytosis Marked; RBC 3.26 m/uL (3.80-5.40); RDW 21.1 % (11.5-15.5)
[2024-01-08 07:39] LABS: Platelet Count 1643 k/uL (150-450)
[2024-01-08 09:50] LABS: Band Neutrophils % 2 %; Basophils # (M) 1.06 k/uL (0-0.2); Metamyelocytes % 2 %; Myelocytes # (M) 0.13 k/uL (0); Myelocytes % 1 %; Neutrophils % (M) 72 %; Nucleated Red Blood Cells 1 /100 WBC (0-0); Total Cells Counted 200
--- NOTE | 2024-01-08 09:50 | P.PN ---
Subjective Progress Note Date: 01/08/24 This is a 63-year-old female, recently discharged on 12/29/23 with similar clinical presentation, returned to the ER, after being notified that her hemoglobin was 5.5 in a patient with past medical history significant for CML on Gleevec, extensive workup within the last year for anemia.reports ongoing sympt omatic anemia, weakness, exertional dyspnea, fatigue, dizziness , nausea ,no vomiting with abdominal pain and worsening chronic back pain radiating down to left flank. Teary-eyed, frustrated over her significant weakness, unable to perform ADLs. Reports loose small dark tarry stools. denies fevers or chills. Transfused with 3 units of packed RBCs with current hemoglobin 8.2. Platelets decreased to 1347. GI consult in place with recommendations pending. 01/08/2024. N.p.o., scheduled for EGD today. Reports no further bowel movements. Hemoglobin 9. Currently receiving IV iron/ Venofer. No new complaints. Vital signs stable. Objective - Vital Signs Vital signs: Vital Signs Temp 98.1 F 01/08/24 08:48 Pulse 77 01/08/24 08:48 Resp 16 01/08/24 08:48 BP 107/60 01/08/24 08:48 Pulse Ox 98 01/08/24 08:48 FiO2 Intake & Output 01/07/24 01/08/24 01/08/24 18:59 06:59 18:59 Intake Total 720 Balance 720 Weight 46.8 kg 47 kg Intake: Oral 720 Other: Voiding Method Toilet Toilet Toilet # Voids 2 2 1 - Exam VITAL SIGNS: [As above] GENERAL: alert and oriented x 3, sitting up in bed, no acute distress HEENT: Normocephalic, atraumatic conjunctivae normal, eyes normal. Sclera anicteric NECK: Supple, no JVD. CARDIOVASCULAR: S1, S2 regular. No murmur RESPIRATION: Unlabored, equal air entry ,breath sounds diminished in the bases. ABDOMEN: Soft, nondistended, diffuse tenderness, no guarding. No rigidity, positive bowel sounds LEGS: No edema. no swelling NERVOUS SYSTEM: Cranial N 2-12 grossly normal. No focal deficits. Skin: Warm and dry, no rash - Labs CBC & Chem 7: 01/08/24 06:14 01/06/24 06:45 Labs: Abnormal Lab Results - Last 24 Hours (Table) 01/08/24 Range/Units 06:14 WBC 13.3 H (3.8-10.6) k/uL RBC 3.26 L (3.80-5.40) m/uL Hgb 9.0 L (11.4-16.0) gm/dL Hct 29.5 L (34.0-46.0) % MCHC 30.4 L (31.0-37.0) g/dL RDW 21.1 H (11.5-15.5) % Plt Count 1643 H* (150-450) k/uL Assessment and Plan Assessment: Recurrent acute on chronic symptomatic severe anemia, related to CML. Status post multiple workups last year without evidence of GI bleed. Status post 3 units of packed RBCs CML, diagnosed December 2022 ,started treatments in February 2023 Acute on chronic thrombocytosis, related to the above Leukocytosis Chronic iron deficient anemia, receiving IV iron Chronic thoracic back pain and tenderness, prior MRI reported age-related degenerative changes throughout the thoracic spine with multilevel disc bulging most pronounced at T2-T3, central disc protrusion C6-C7. History of COPD, stable Hypertension GERD Rheumatoid arthritis History of anxiety/depression Continued ongoing nicotine dependence Moderate calorie protein malnutrition Plan: Continue on current medication regimen ,monitoring and symptomatic treatme nt. NPO, EGD pending. Discharge planning in progress pending endoscopy results. The impression and plan of care has been dictated as directed. : I performed a history and examination of this patient, discussed the same with the dictator. I agree with the dictator's note ,documented as a scribe. Any additional findings or plans will be noted.
[2024-01-08 09:51] LABS: Lymphocytes # (M) 0.92 k/uL (1.0-4.8); Metamyelocytes # (M) 0.26 k/uL (0); Monocytes # (M) 0.92 k/uL (0-1.0); WBC 13.2 k/uL (3.8-10.6)
[2024-01-08 09:56] LABS: Mixed Population RBC Present; Polychromasia Present
[2024-01-08 09:57] LABS: Basophilic Stippling Present
--- NOTE | 2024-01-08 11:08 | P.PN ---
Subjective Progress Note Date: 01/08/24 CHIEF COMPLAINT: GI bleed HISTORY OF PRESENT ILLNESS: Patient reports she has had no further black stools. Patient scheduled for EGD with GI service today. She does report epigastric pain. Afebrile. Hemoglobin is up from 8.2-9.0 PHYSICAL EXAM: VITAL SIGNS: Reviewed. GENERAL: no acute distress. ABDOMEN: Soft. Nondistended. ASSESSMENT: 1. Acute blood loss anemia with dark stools. Hemoglobin 4.5 on admission requiring blood transfusions 2. Prior history of GI bleed with gastric ulcer 3. History of CML PLAN: -Patient scheduled for EGD today with GI service -Continue IV Protonix -Surgical service remains on standby Physician Brake Operator Helper note has been reviewed by physician. Signing provider agrees with the documented findings, assessment, and plan of care. Objective - Vital Signs Vital signs: Vital Signs Temp 98.1 F 01/08/24 08:48 Pulse 77 01/08/24 08:48 Resp 16 01/08/24 08:48 BP 107/60 01/08/24 08:48 Pulse Ox 98 01/08/24 08:48 FiO2 Intake & Output 01/07/24 01/08/24 01/08/24 18:59 06:59 18:59 Intake Total 720 Balance 720 Weight 46.8 kg 47 kg Intake: Oral 720 Other: Voiding Method Toilet Toilet Toilet # Voids 2 2 1 - Labs CBC & Chem 7: 01/08/24 06:14 01/06/24 06:45 Labs: Abnormal Lab Results - Last 24 Hours (Table) 01/08/24 Range/Units 06:14 WBC 13.2 H (3.8-10.6) k/uL RBC 3.26 L (3.80-5.40) m/uL Hgb 9.0 L (11.4-16.0) gm/dL Hct 29.5 L (34.0-46.0) % MCHC 30.4 L (31.0-37.0) g/dL RDW 21.1 H (11.5-15.5) % Plt Count 1643 H* (150-450) k/uL Neutrophils # (Manual) 9.70 H (1.3-7.7) k/uL Lymphocytes # (Manual) 0.92 L (1.0-4.8) k/uL Basophils # (Manual) 1.06 H (0-0.2) k/uL Metamyelocytes # (Man) 0.26 H (0) k/uL Myelocytes # (Manual) 0.13 H (0) k/uL Nucleated RBCs 1 H (0-0) /100 WBC
[2024-01-08] MEDS ORDERED: PROPOFOL 10 MG/ML 20 ML VIAL IV ONE (13:51)
[2024-01-08] MEDS ORDERED: LIDOCAINE 1% INJ 10MG/ML (20 ML MDV) ONE (13:51)
[2024-01-08] MEDS: SODIUM CHLORIDE 0.9% 500 ML 500 ML IV ONE (13:54)
--- NOTE | 2024-01-08 14:00 | P.PCN ---
Date of Procedure: 01/08/24 Procedure(s) Performed: BRIEF HISTORY: Patient is a 63-year-old, pleasant, female admitted to hospital with severe symptomatic anemia and hemoglobin of 4 g/dL.. She received total 3 minutes of PRBC transfusion yesterday. Repeat hemoglobin is 9 g/dL. She has been having intermittent black tarry stools. Last EGD and colonoscopy was done by Dr. Carbone in August 2022 that revealed diffuse gastritis, pyloric channel ulcer, diverticulosis and small internal hemorrhoids. She is close follow-up endoscopy to evaluate for upper GI source of bleeding PROCEDURE PERFORMED: Esophagogastroduodenoscopy with cautery using gold probe. PREOPERATIVE DIAGNOSIS: Anemia and black tarry stools. IV sedation per anesthesia. PROCEDURE: After informed consent was obtained, the patient was brought into the endoscopy unit. IV sedation was administered by Anesthesia under continuous monitoring. Initially the Olympus GIF-140 video endoscope was inserted into the mouth. Esophagus intubated without any difficulty. It was gradually advanced into the stomach and duodenum and carefully examined. The bulb of the duodenum appeared normal. There were 3 scattered nonbleeding duodenal AVMs identified which were cauterized using a gold probe. The scope at this time was withdrawn to the stomach, adequately insufflated with air, and upon careful examination, mucosa of the antrum, body, cardia and the fundus appeared normal. The scope was then withdrawn into the esophagus. The GE junction was located at 39 cm from the incisors. The esophagus appeared normal. There were no erosions or ulcerations seen and the patient tolerated the procedure well. IMPRESSION: 1. 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 2. Esophagus and stomach appeared normal. RECOMMENDATIONS: The findings of this examination were discussed with the patient . Diet will be advanced as tolerated. Monitor CBC daily..
[2024-01-09 01:02] VITALS: RESP 16
[2024-01-09 09:08] LABS: Anisocytosis Moderate; HCT 32.1 % (34.0-46.0); HGB 9.8 gm/dL (11.4-16.0); Hypochromasia Marked; MCH 27.8 pg (25.0-35.0); MCHC 30.5 g/dL (31.0-37.0); MCV 91.1 fL (80.0-100.0); Mean Platelet Volume 8.3; Poikilocytosis Marked; RBC 3.52 m/uL (3.80-5.40); RDW 21.2 % (11.5-15.5)
[2024-01-09 09:18] LABS: Platelet Count 1690 k/uL (150-450)
[2024-01-09 09:44] LABS: African American GFR (CKD) 73 (>60 ml/min/1.73 sqM); Anion Gap 6 mmol/L; Blood Urea Nitrogen 10 mg/dL (7-17); Calcium 8.9 mg/dL (8.4-10.2); Carbon Dioxide 24 mmol/L (22-30); Chloride 110 mmol/L (98-107); Glucose 147 mg/dL (74-99); Non-African American GFR(CKD) 64 (>60 ml/min/1.73 sqM); Potassium 4.4 mmol/L (3.5-5.1); Sodium 140 mmol/L (137-145)
--- NOTE | 2024-01-09 09:56 | P.DS ---
Providers Date of admission: 01/04/24 23:12 Expected date of discharge: 01/09/24 Attending physician: Bashir Jefferson MD Consults: 01/04/24 22:54 Consult Physician Urgent Consulting Provider: Alexandro Dawkins Consult Reason/Comments: Symptomatic anemia, CML patient Do you want consulting provider notified?: Yes 01/05/24 08:07 Consult Physician Routine Consulting Provider: Latrell Alexis Consult Reason/Comments: Concern for GI bleeding Do you want consulting provider notified?: Yes 01/06/24 16:07 Consult Physician Routine Consulting Provider: Constance Rehman Consult Reason/Comments: GI bleed, pt scheduled in office to see Do you want consulting provider notified?: Yes, Notify in am Primary care physician: Katja Jefferson [facility] Course: Final Diagnosis: Recurrent acute on chronic symptomatic severe anemia, related to CML. Status post multiple workups last year without evidence of GI bleed. Status post 3 units of packed RBCs CML, diagnosed December 2022 ,started treatments in February 2023 Acute on chronic thrombocytosis, related to the above Leukocytosis Chronic iron deficient anemia, receiving IV iron Chronic thoracic back pain and tenderness, prior MRI reported age-related degenerative changes throughout the thoracic spine with multilevel disc bulging most pronounced at T2-T3, central disc protrusion C6-C7. History of COPD, stable Hypertension GERD Rheumatoid arthritis History of anxiety/depression Continued ongoing nicotine dependence Moderate calorie protein malnutrition Hospital course: This is a 63-year-old female, recently discharged on 12/29/23 with similar clinical presentation, returned to the ER, after being notified that her hemoglobin was 5.5 in a patient with past medical history significant for CML on Gleevec, extensive workup within the last year for anemia.reports ongoing symptomatic anemia, weakness, exertional dyspnea, fatigue, dizziness , nausea ,no vomiting with abdominal pain and worsening chronic back pain radiating down to left flank. Teary-eyed, frustrated over her significant weakness, unable to perform ADLs. Reports loose small dark tarry stools. denies fevers or chills. Transfused with 3 units of packed RBCs with current hemoglobin 8.2. Platelets decreased to 1347. GI consult in place with recommendations pending. 01/08/2024. N.p.o., scheduled for EGD today. Reports no further bowel movements . Hemoglobin 9. Currently receiving IV iron/ Venofer. No new complaints. Vital signs stable. 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 tolerated procedure well. Hemoglobin 9.8, platelets 1690. BUN 10, creatinine 0.97. Afebrile, WBC increased to 17.2-possibly stress-induced, but will rule out infection.patient continues to complain of abdominal pain bilateral flank pain and constipation.chest x-ray, UA with micro ordered .empiric antibiotics initiated.continue on MiraLAX as previously ordered, reinforced increase fiber intake .ordered patient will be discharged home today in a stable condition with guarded prognosis pending UA and chest x-ray and final DC recommendations and clearance per GI. The impression and plan of care has been dictated as directed. : I performed a history and examination of this patient, discussed the same with the dictator. I agree with the dictator's note ,documented as a scribe. Any additional findings or plans will be noted. Patient Condition at Discharge: Stable Plan - Discharge Summary Discharge Rx Participant: No New Discharge Prescriptions: New polyethylene glycoL 3350 [Miralax] 17 gm PO BID packet Continue Topiramate 100 mg PO BID Gabapentin 800 mg PO QID HYDROcodone/APAP 7.5-325MG [[place] 7.5-325] 1 tab PO QID Baclofen [Lioresal] 20 mg PO HS buPROPion XL [Wellbutrin XL] 300 mg PO DAILY Sertraline [Zoloft] 50 mg PO DAILY Multivit with Calcium,Iron,Min [Women's Multivitamin] 1 tab PO DAILY Aspirin [Adult Low Dose Aspirin EC] 81 mg PO DAILY Omeprazole [PriLOSEC] 20 mg PO -[facility] #90 cap Clindamycin Phosphate 1 applic TOPICAL BID Tretinoin [Tretinoin 0.025%] 1 applic TOPICAL HS Lactulose [Cephulac] 30 gm PO BID PRN #600 ml PRN Reason: Constipation Albuterol Inhaler [Ventolin Hfa Inhaler] 1 puff INHALATION RT-Q6H PRN PRN Reason: Shortness Of Breath Or Wheezing hydrOXYzine HCL [Atarax] 25 mg PO HS Spironolactone [Aldactone] 25 mg PO DAILY Ondansetron [Zofran] 4 mg PO DAILY PRN PRN Reason: Nausea Imatinib Mesylate 400 mg PO W/SUPPER Discharge Medication List Gabapentin 800 mg PO QID 05/01/14 [History] Topiramate 100 mg PO BID 05/01/14 [History] HYDROcodone/APAP 7.5-325MG [[place] 7.5-325] 1 tab PO QID 03/11/16 [History] Baclofen [Lioresal] 20 mg PO HS 07/02/17 [History] Sertraline [Zoloft] 50 mg PO DAILY 07/02/17 [History] buPROPion XL [Wellbutrin XL] 300 mg PO DAILY 07/02/17 [History] Multivit with Calcium,Iron,Min [Women's Multivitamin] 1 tab PO DAILY 10/21/19 [History] Spironolactone [Aldactone] 25 mg PO DAILY 12/21/21 [History] Aspirin [Adult Low Dose Aspirin EC] 81 mg PO DAILY 06/07/22 [History] Omeprazole [PriLOSEC] 20 mg PO AC-BRKFST #90 cap 06/09/22 [Rx] Clindamycin Phosphate 1 applic TOPICAL BID 01/16/23 [History] Tretinoin [Tretinoin 0.025%] 1 applic TOPICAL HS 01/16/23 [History] Lactulose [Cephulac] 30 gm PO BID PRN #600 ml 01/20/23 [Rx] Albuterol Inhaler [Ventolin Hfa Inhaler] 1 puff INHALATION RT-Q6H PRN 11/05/23 [History] Imatinib Mesylate 400 mg PO W/SUPPER 12/26/23 [History] Ondansetron [Zofran] 4 mg PO DAILY PRN 12/26/23 [History] hydrOXYzine HCL [Atarax] 25 mg PO HS 12/26/23 [History] polyethylene glycoL 3350 [Miralax] 17 gm PO BID packet 01/09/24 [Rx] Follow up Appointment(s)/Referral(s): Katja Jefferson DO [Primary Care Provider] - 01/14/24 1:15 pm (Sunday) Ambulatory/Diagnostic Orders: Complete Blood Count w/diff [LAB.AMB] Time Frame: 3 Days, Location: None Selected
--- NOTE | 2024-01-09 10:04 | XR ---
EXAMINATION TYPE: XR chest 2V DATE OF EXAM: 01/09/2024 COMPARISON: 01/04/2024 HISTORY: Shortness of breath TECHNIQUE: Frontal and lateral views of the chest are obtained. FINDINGS: Scattered senescent parenchymal changes noted. Hyperinflation compatible with COPD. No evidence for infiltrate. No evidence for atelectasis. Heart size is stable. Mediastinal structures are stable and grossly unremarkable. No evidence for hilar prominence. Degenerative changes dorsal spine. IMPRESSION: 1. No evidence for acute pulmonary disease.
[2024-01-09 10:18] LABS: Appearance,Urine Cloudy (Clear); Bilirubin,Urine Negative (Negative); Blood,Urine Trace (Negative); Color,Urine Yellow; Glucose,Urine (UA) Negative (Negative); Hyaline Casts,Urine 2 /lpf (0-2); Ketones,Urine Negative (Negative); Leukocyte Esterase,Urine Large (Negative); Mucus,Urine Rare /hpf; Nitrite,Urine Negative (Negative); PH, Urine 6.5 (5.0-8.0); Protein,Urine Trace (Negative); RBC,Urine 5 /hpf (0-5); Specific Gravity,Urine 1.017 (1.001-1.035); Urobilinogen,Urine <2.0 mg/dL (<2.0); WBC,Urine >182 /hpf (0-5)
[2024-01-09 11:42] LABS: Band Neutrophils % 3 %; Basophils # (M) 1.02 k/uL (0-0.2); Eosinophils # (M) 0.68 k/uL (0-0.7); Lymphocytes # (M) 0.51 k/uL (1.0-4.8); Metamyelocytes # (M) 0.34 k/uL (0); Metamyelocytes % 2 %; Neutrophils % (M) 74 %; Nucleated Red Blood Cells 1 /100 WBC (0-0); Total Cells Counted 200
[2024-01-09 11:43] LABS: Mixed Population RBC Present; Polychromasia Present
[2024-01-09 11:44] LABS: Target Cells Present
--- NOTE | 2024-01-09 12:29 | P.PN ---
Subjective Progress Note Date: 01/09/24 Principal diagnosis: Anemia Pleasant 63-year-old female who presented to the emergency department on 01/04/2024 sent in by her primary care physician after getting blood work done and concerns for anemia. She has a history of CML with chronic anemia and known iron deficiency anemia who requires parental iron infusions as needed. Patient follows with Dr. Dawkins she has been on Gleevec however was recently seen for symptomatic anemia and admitted on 12/27/2023 with a hemoglobin of 4.5 requiring blood transfusion at that time. Gleevec had been discontinued at that admission. She resumed the Gleevec 400 mg daily since discharge last took on 01/03/2024. 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 Carrero. she has had multiple workup for anemia including most recent upper endoscopy 06/11/[address] Alexis with findings of mild gastritis with no active bleeding. EGD with Dr. Alexis with findings of gastritis, previous to that in August 2022 EGD and colonoscopy with Dr. Candido Paris with findings of diverticulosis external hemorrhoids and EGD with findings of hemorrhagic gastritis with no active bleeding. In May 2022 finding of pyloric channel ulcer 2 to 3 mm with no active bleeding but thought to be the source of GI bleed. Patient states 3 days prior to her admission she was having very small bowel movements and straining which she reports is being black and tarry. Also having some abdominal discomfort with feeling full quickly and not eating much. She denies any blood thinners and no regular NSAID use. Hemoglobin was 4.5 on admission. She has been transfused 3 units of blood. Yesterday's hemoglobin 8.2. Patient also had mildly elevated BUN on admission now normal. Iron studies completed iron 14 saturation 3.4 ferritin 21.6 01/09/2024 Patient seen and examined today as a follow-up. Yesterday she underwent upper endoscopy with findings of 3 scattered duodenal AVMs with no active bleeding status post cautery with cold probe ablation. Esophagus and stomach appeared normal. Patient today states she still has a full feeling after eating just a little bit. And a little bit of acid reflux. Still having some constipation however is refusing to eat take her lactulose. Objective - Vital Signs Vital signs: Vital Signs Temp 98.4 F 01/09/24 08:17 Pulse 78 01/09/24 08:17 Resp 16 01/09/24 08:17 BP 99/66 01/09/24 08:17 Pulse Ox 97 01/09/24 08:17 FiO2 Intake & Output 01/08/24 01/09/24 01/09/24 18:59 06:59 18:59 Intake Total 100 540 240 Balance 100 540 240 Weight 47.2 kg Intake: IV 100 Oral 540 240 Other: Voiding Method Toilet Toilet Toilet # Voids 1 2 # Bowel Movements 1 - Exam General appearance: The patient is alert, oriented, appears in no acute distress. HET: Head is normocephalic and atraumatic. Conjunctiva pink. Sclera anicteric. Neck: Supple without lymphadenopathy. Abdomen: Soft, nontender, nondistended with bowel sounds. No guarding or rigidity. Extremities: Normal skin color and turgor. No pedal edema Skin: No rashes, no jaundice Neurological: No focal deficits. Alert and oriented. - Labs CBC & Chem 7: 01/09/24 08:46 01/09/24 08:46 Labs: Abnormal Lab Results - Last 24 Hours (Table) 01/08/24 01/09/24 Range/Units 06:14 08:46 WBC 13.2 H 17.2 H (3.8-10.6) k/uL RBC 3.52 L (3.80-5.40) m/uL Hgb 9.8 L (11.4-16.0) gm/dL Hct 32.1 L (34.0-46.0) % MCHC 30.5 L (31.0-37.0) g/dL RDW 21.2 H (11.5-15.5) % Plt Count 1690 H* (150-450) k/uL Neutrophils # (Manual) 9.70 H (1.3-7.7) k/uL Lymphocytes # (Manual) 0.92 L (1.0-4.8) k/uL Basophils # (Manual) 1.06 H (0-0.2) k/uL Metamyelocytes # (Man) 0.26 H (0) k/uL Myelocytes # (Manual) 0.13 H (0) k/uL Nucleated RBCs 1 H (0-0) /100 WBC Assessment and Plan (1) Symptomatic anemia Narrative/Plan: 63-year-old female with longstanding history of anemia and CML. Has presented several times with symptomatic anemia. She has had several workups in the past with findings of pyloric channel ulcer with no active bleeding and also hemorrhagic gastritis with no active bleeding. Unclear etiology of anemia likely secondary to CML and treatment however patient is reporting black stool 3 days prior to coming in to the emergency department as well as some abdominal discomfort and increased fullness. Status post EGD with 3 scattered nonbleeding AVMs status post cautery. Hemoglobin stable at 9.8. Cleared for discharge. No further GI workup indicated. Current Visit: Yes Status: Acute Priority: High Code(s): D64.9 - ANEMIA, UNSPECIFIED SNOMED Code(s): 328655296 (2) History of iron deficiency anemia Current Visit: Yes Status: Acute Code(s): Z86.2 - PRSNL HISTORY OF DIS OF THE BLD/BLD-FORM ORG/[facility] SNOMED Code(s): 436199244 (3) CML (chronic myelocytic leukemia) Current Visit: Yes Status: Chronic Code(s): C92.10 - CHRONIC MYELOID LEUK, BCR/ABL-POSITIVE, NOT ACHIEVE REMIS SNOMED Code(s): 01658702 (4) Constipation Narrative/Plan: Continue MiraLAX twice a day. Lactulose is ordered however patient is declining use. Can add suppository if needed. Current Visit: Yes Status: Acute Code(s): K59.00 - CONSTIPATION, UNSPECIFIED SNOMED Code(s): 25248325 Plan: 1. Continue symptomatic and supportive care 2. Regular diet 3. Recommend eating small frequent meals 4. Will add Pepcid 20 mg at bedtime 5. Continue MiraLAX twice a day 6. No further workup from gastroenterology Thank you for this consultation, she is cleared for discharge. Dr. Salo Rehman I agree with the dictator's note, documented as a scribe by Zoey Albert.
--- NOTE | 2024-01-09 13:33 | P.PN ---
Subjective Progress Note Date: 01/09/24 CHIEF COMPLAINT: GI bleed HISTORY OF PRESENT ILLNESS: Patient is status post EGD with GI service, that re ported 3 duodenal AVMs with no active bleeding status post cautery. Patient complains of heartburn and constipation. She has had no further black stools. Hemoglobin is up at 9.8. WBC 17. Patient is having flatus. She did have a small bowel movement 2 days ago. Discussed possibly giving lactulose. Patient declined lactulose. PHYSICAL EXAM: VITAL SIGNS: Reviewed. GENERAL: no acute distress. ABDOMEN: Soft. Nondistended. ASSESSMENT: 1. Acute blood loss anemia with dark stools. Hemoglobin 4.5 on admission requiring blood transfusions status post EGD showing 3 duodenal AVMs with no active bleeding 2. Prior history of GI bleed with gastric ulcer 3. History of CML PLAN: -Patient can be discharged from surgical standpoint -Recommend Metamucil or Benefiber for constipation Physician Silk Hanger note has been reviewed by physician. Signing provider agrees with the documented findings, assessment, and plan of care. Objective - Vital Signs Vital signs: Vital Signs Temp 98.4 F 01/09/24 08:17 Pulse 78 01/09/24 08:17 Resp 16 01/09/24 08:17 BP 99/66 01/09/24 08:17 Pulse Ox 97 01/09/24 08:17 FiO2 Intake & Output 01/08/24 01/09/24 01/09/24 18:59 06:59 18:59 Intake Total 100 540 240 Balance 100 540 240 Weight 47.2 kg Intake: IV 100 Oral 540 240 Other: Voiding Method Toilet Toilet Toilet # Voids 1 2 # Bowel Movements 1 - Labs CBC & Chem 7: 01/09/24 08:46 01/09/24 08:46 Labs: Abnormal Lab Results - Last 24 Hours (Table) 01/09/24 01/09/24 01/09/24 Range/Units 08:46 08:46 09:50 WBC 17.0 H (3.8-10.6) k/uL RBC 3.52 L (3.80-5.40) m/uL Hgb 9.8 L (11.4-16.0) gm/dL Hct 32.1 L (34.0-46.0) % MCHC 30.5 L (31.0-37.0) g/dL RDW 21.2 H (11.5-15.5) % Plt Count 1690 H* (150-450) k/uL Neutrophils # (Manual) 13.00 H (1.3-7.7) k/uL Lymphocytes # (Manual) 0.51 L (1.0-4.8) k/uL Monocytes # (Manual) 1.70 H (0-1.0) k/uL Basophils # (Manual) 1.02 H (0-0.2) k/uL Metamyelocytes # (Man) 0.34 H (0) k/uL Nucleated RBCs 1 H (0-0) /100 WBC Chloride 110 H (98-107) mmol/L Glucose 147 H (74-99) mg/dL Urine Appearance Cloudy H (Clear) Urine Protein Trace H (Negative) Urine Blood Trace H (Negative) Ur Leukocyte Esterase Large H (Negative) Urine WBC >182 H (0-5) /hpf Urine WBC Clumps Few H (None) /hpf Urine Mucus Rare H (None) /hpf
[2024-01-09 13:39] VITALS: BP 120/77; PULSE 82; TEMP 98.3
[2024-01-09] MEDS: CALCIUM CARBONATE 500 MG CHEWABLE PO PRN (13:40)
--- NOTE | 2024-01-09 19:37 | P.PN ---
Subjective Progress Note Date: 01/09/24 No acute events. Pt reporting persisting uneasiness in her stomach. No reported episodes of acute bleeding. S/p EGD. Hgb stable at 9.0 Objective - Vital Signs Vital signs: Vital Signs Temp 98.4 F 01/09/24 08:17 Pulse 78 01/09/24 08:17 Resp 16 01/09/24 08:17 BP 99/66 01/09/24 08:17 Pulse Ox 97 01/09/24 08:17 FiO2 Intake & Output 01/08/24 01/09/24 01/09/24 18:59 06:59 18:59 Intake Total 100 540 240 Balance 100 540 240 Weight 47.2 kg Intake: IV 100 Oral 540 240 Other: Voiding Method Toilet Toilet Toilet # Voids 1 2 # Bowel Movements 1 - Constitutional General appearance: Present: no acute distress - EENT Eyes: Present: anicteric sclerae, EOMI ENT: Present: hearing grossly normal - Respiratory Details: breathing is even and unlabored - Cardiovascular Details: well perfused - Integumentary Integumentary: Absent: cyanotic, jaundiced - Musculoskeletal Musculoskeletal: Present: strength equal bilaterally - Psychiatric Psychiatric: Present: A&O x's 3 - Labs CBC & Chem 7: 01/09/24 08:46 01/09/24 08:46 Labs: Abnormal Lab Results - Last 24 Hours (Table) 01/09/24 01/09/24 01/09/24 Range/Units 08:46 08:46 09:50 WBC 17.0 H (3.8-10.6) k/uL RBC 3.52 L (3.80-5.40) m/uL Hgb 9.8 L (11.4-16.0) gm/dL Hct 32.1 L (34.0-46.0) % MCHC 30.5 L (31.0-37.0) g/dL RDW 21.2 H (11.5-15.5) % Plt Count 1690 H* (150-450) k/uL Neutrophils # (Manual) 13.00 H (1.3-7.7) k/uL Lymphocytes # (Manual) 0.51 L (1.0-4.8) k/uL Monocytes # (Manual) 1.70 H (0-1.0) k/uL Basophils # (Manual) 1.02 H (0-0.2) k/uL Metamyelocytes # (Man) 0.34 H (0) k/uL Nucleated RBCs 1 H (0-0) /100 WBC Chloride 110 H (98-107) mmol/L Glucose 147 H (74-99) mg/dL Urine Appearance Cloudy H (Clear) Urine Protein Trace H (Negative) Urine Blood Trace H (Negative) Ur Leukocyte Esterase Large H (Negative) Urine WBC >182 H (0-5) /hpf Urine WBC Clumps Few H (None) /hpf Urine Mucus Rare H (None) /hpf Assessment and Plan (1) Anemia Status: Acute Priority: High Code(s): D64.9 - ANEMIA, UNSPECIFIED SNOMED Code(s): 594388281 (2) GI bleed Status: Acute Priority: High Code(s): K92.2 - GASTROINTESTINAL HEMORRHAGE, UNSPECIFIED SNOMED Code(s): 73015563 (3) CML (chronic myelocytic leukemia) Status: Chronic Priority: Medium Code(s): C92.10 - CHRONIC MYELOID LEUK, BCR/ABL-POSITIVE, NOT ACHIEVE REMIS SNOMED Code(s): 63912303 Plan: #Iron deficiency anemia -Admitted on 12/27/2023 and received 2 units of packed red blood cells for hemoglobin 4.5 with appropriate response to 8.4 -Outpatient CBC on 01/04/2024 revealed hemoglobin of 5.5 with hemoglobin of 4.5 on initial labs -Iron saturation noted to be 3.41% on labs from admission with recent vitamin B12 and folic acid in October 2023 being normal. Outpatient feraheme was given on 11/12/2023 and 11/19/2023 -Clinically, she has been having melena with weakness, fatigue, and orthostatic dizziness -She has received 3 units of packed red blood cells since admission with a hemoglobin of 9.0, consistent with an appropriate response -IV iron completed. Continue PPI daily -GI consulted. S/p EGD which revealed 3 scattered duodenal AVMs with no active bleeding, s/p cautery #CML -Currently on Gleevec, which has been held intermittently due to concern for intolerance -She was taking this for 2 weeks prior to her admission last week -She did resume this following discharge and last took this the day prior to current admission -Continue holding Gleevec inpatient -Instructed pt to continue to hold Gleevec until clinic f/u on 01/13. Due to increased risk for bleeding with Gleevec, may need to consider changing treatment. Will discuss further at upcoming appt #L3 compression fracture -Receiving Dilaudid as needed, stable -Can be further evaluated by orthopedics following endoscopies attests: I have seen and examined patient, performed H&P, developed impression and plan of care. Discussed with dictator. Agree with documentation, dictated as a scribe
[2024-01-09] MEDS ORDERED: FAMOTIDINE 20 MG TAB PO SCH (21:00)
== END 2024-01-09 14:31 | disposition home or self-care (01) | DRG 840 ==
LOC: EC 20:55 → 3SCARD 23:12
PROVIDERS: ADMIT Family Medicine; ATTEND Family Medicine
PROC: 30233N1 Transfusion of Nonautologous Red Blood Cells into Peripheral Vein, Percutaneous Approach (ICD-10-PCS; 2024-01-04)
PROC: 0D598ZZ Destruction of Duodenum, Via Natural or Artificial Opening Endoscopic (ICD-10-PCS; principal; 2024-01-08 07:50)
DX: C92.10 Chronic myeloid leukemia, BCR/ABL-positive, not having achieved remission (principal); K31.811 Angiodysplasia of stomach and duodenum with bleeding; D62 Acute posthemorrhagic anemia; E44.0 Moderate protein-calorie malnutrition; Z68.1 Body mass index [BMI] 19.9 or less, adult; N39.0 Urinary tract infection, site not specified; D47.3 Essential (hemorrhagic) thrombocythemia; M50.223 Other cervical disc displacement at C6-C7 level; E77.8 Other disorders of glycoprotein metabolism; D63.0 Anemia in neoplastic disease; F32.A Depression, unspecified; I10 Essential (primary) hypertension; M06.9 Rheumatoid arthritis, unspecified; J44.9 Chronic obstructive pulmonary disease, unspecified; D75.839 Thrombocytosis, unspecified; F17.210 Nicotine dependence, cigarettes, uncomplicated; F41.9 Anxiety disorder, unspecified; I73.00 Raynaud's syndrome without gangrene; K21.9 Gastro-esophageal reflux disease without esophagitis; E88.09 Other disorders of plasma-protein metabolism, not elsewhere classified; K59.00 Constipation, unspecified; K64.8 Other hemorrhoids; Z79.82 Long term (current) use of aspirin; Z79.899 Other long term (current) drug therapy; Z79.69 Long term (current) use of other immunomodulators and immunosuppressants; Z88.1 Allergy status to other antibiotic agents
CPT/HCPCS: 36415; 36430; 45382; 71046; 80048; 80053; 81001; 81003; 82728; 83540; 83550; 83735; 84100; 84484; 85025; 85610; 85730; 86850; 86900; 86901; 86920; 87077; 87086; 87186; 93005; 96365; 96375; 96376; 99285

== ENCOUNTER 2024-02-03 16:13 | Inpatient (IN) | payer MEDICARE, OTHER ==
--- NOTE | 2024-02-03 16:39 | ED ---
Weakness HPI - General Chief complaint: Weakness Stated complaint: weakness Time Seen by Provider: 02/03/24 16:17 Source: patient, RN notes reviewed, old records reviewed Mode of arrival: EMS Limitations: no limitations - History of Present Illness Initial comments: This is a 63-year-old female to the ER today. She presents today for evaluation regards to severe weakness lightheadedness dizziness generalized bodyaches and pains which what she believes is low hemoglobin, patient has needed multiple transfusions in the past and believes that is she is on the same path today with shortness of breath and weakness times sometimes feelings of near syncope. Patient feels very uneasy shaky with generalized pain MD Complaint: generalized weakness (Generalized chronic pain), lack of energy -: days(s) Location: generalized Severity: severe Severity scale (1-10): 8 Consistency: constant Improves with: none Worsens with: none Context: history of similar Associated Symptoms: denies other symptoms - Related Data Home Medications Medication Instructions Recorded Confirmed Gabapentin 800 mg PO QID 05/01/14 02/03/24 Topiramate 100 mg PO BID 05/01/14 02/03/24 HYDROcodone/APAP 7.5-325MG [[place] 1 tab PO QID 03/11/16 02/03/24 7.5-325] Baclofen [Lioresal] 20 mg PO HS 07/02/17 02/03/24 Sertraline [Zoloft] 50 mg PO DAILY 07/02/17 02/03/24 buPROPion XL [Wellbutrin XL] 300 mg PO DAILY 07/02/17 02/03/24 Multivit with Calcium,Iron,Min 1 tab PO DAILY 10/21/19 02/03/24 [Women's Multivitamin] Spironolactone [Aldactone] 25 mg PO DAILY 12/21/21 02/03/24 Aspirin [Adult Low Dose Aspirin EC] 81 mg PO DAILY 06/07/22 02/03/24 Clindamycin Phosphate 1 applic TOPICAL BID 01/16/23 02/03/24 Tretinoin [Tretinoin 0.025%] 1 applic TOPICAL HS 01/16/23 02/03/24 Albuterol Inhaler [Ventolin Hfa 1 puff INHALATION RT-Q6H PRN 11/05/23 02/03/24 Inhaler] Ondansetron [Zofran] 4 mg PO DAILY PRN 12/26/23 02/03/24 hydrOXYzine HCL [Atarax] 25 mg PO HS 12/26/23 02/03/24 Pantoprazole Sodium [Protonix] 20 mg PO DAILY 02/03/24 02/03/24 Previous Rx's Medication Instructions Recorded Omeprazole [PriLOSEC] 20 mg PO AC-BRKFST #90 cap 06/09/22 polyethylene glycoL 3350 [Miralax] 17 gm PO BID packet 01/09/24 Allergies Allergy/AdvReac Type Severity Reaction Status Date / Time metronidazole [From Flagyl] Allergy Itching, Verified 02/03/24 18:36 BURNING OF SKIN Review of Systems ROS Statement: Those systems with pertinent positive or pertinent negative responses have been documented in the HPI. ROS Other: All systems not noted in ROS Statement are negative. Past Medical History Past Medical History: Cancer, COPD, GERD/Reflux, Pneumonia, Rheumatoid Arthritis (RA) Additional Past Medical History / Comment(s): IP ADMISSION FORGASTRIC ULCER IN MAY 2022 WITH HIGH PLATELET & WHITE COUNT THROMBYTOSIS- (SEES DR REBOLLEDO). COPD, leukoplakia of the vocal cords, chronic shoulder back and neck pain, acid reflux, depression, raynaud's syndrome. takes aldactone for hair loss. CML History of Any Multi-Drug Resistant Organisms: MRSA Date of last positivie culture/infection: 05/03/19 MDRO Source:: MRSA FACE Past Surgical History: Back Surgery, Cholecystectomy, Hernia Repair, Orthopedic Surgery, Tonsillectomy Additional Past Surgical History / Comment(s): arthroscopic shoulder, vocal cord scraping, dariana fundoplasty, CERVICAL FUSSION, recent EGD, colonoscopy. VENTRAL HERNIA. Past Anesthesia/Blood Transfusion Reactions: Blood Transfusion Reaction Additional Past Anesthesia/Blood Transfusion Reaction / Comment(s): TRANSFUSIONS WITH GASTRIC ULCER, no previous reactions Past Psychological History: Anxiety, Depression Smoking Status: Current every day smoker Past Alcohol Use History: None Reported Past Drug Use History: None Reported - Past Family History Mother History Unknown: Yes Family Medical History: Cancer Father Family Medical History: Unable to Obtain General Exam Limitations: altered mental status, physical limitation General appearance: alert, in no apparent distress, anxious Head exam: Present: atraumatic, normocephalic, normal inspection Eye exam: Present: normal appearance, PERRL, EOMI. Absent: scleral icterus, conjunctival injection, periorbital swelling ENT exam: Present: normal exam, mucous membranes moist Neck exam: Present: normal inspection. Absent: tenderness, meningismus, lymphadenopathy Respiratory exam: Present: normal lung sounds bilaterally. Absent: respiratory distress, wheezes, rales, rhonchi, stridor Cardiovascular Exam: Present: regular rate, normal rhythm, normal heart sounds. Absent: systolic murmur, diastolic murmur, rubs, gallop, clicks GI/Abdominal exam: Present: soft, normal bowel sounds. Absent: distended, tenderness, guarding, rebound, rigid Extremities exam: Present: normal inspection, full ROM, normal capillary refill. Absent: tenderness, pedal edema, joint swelling, calf tenderness Back exam: Present: normal inspection Neurological exam: Present: alert, oriented X3, CN II-XII intact Psychiatric exam: Present: normal affect, normal mood Skin exam: Present: warm, dry, intact, normal color. Absent: rash Course Vital Signs 02/03/24 02/03/24 02/03/24 16:17 22:38 22:51 Temperature 97.6 F 99 F Pulse Rate 94 87 83 Respiratory 20 18 16 Rate Blood Pressure 123/72 110/68 102/66 O2 Sat by Pulse 100 98 95 Oximetry 02/03/24 02/03/24 02/04/24 23:11 23:46 00:49 Temperature 98.7 F 98.2 F Pulse Rate 75 77 81 Respiratory 18 16 16 Rate Blood Pressure 104/67 102/65 107/69 O2 Sat by Pulse 100 98 99 Oximetry 02/04/24 02/04/24 02/04/24 01:25 01:40 02:00 Temperature 97.6 F 97.6 F 97.9 F Pulse Rate 72 76 81 Respiratory 20 18 16 Rate Blood Pressure 109/65 100/60 106/64 O2 Sat by Pulse 99 98 98 Oximetry 02/04/24 02/04/24 02/04/24 02:20 03:43 05:09 Temperature 98.2 F Pulse Rate 73 77 Respiratory 18 18 18 Rate Blood Pressure 117/74 101/61 O2 Sat by Pulse 97 96 Oximetry 02/04/24 02/04/24 02/04/24 06:44 10:31 10:48 Temperature 98 F 98.1 F Pulse Rate 81 78 74 Respiratory 18 16 16 Rate Blood Pressure 95/66 105/69 108/72 O2 Sat by Pulse 97 100 100 Oximetry 02/04/24 02/04/24 02/04/24 11:08 12:06 12:57 Temperature 98.2 F 98.2 F Pulse Rate 78 78 79 Respiratory 16 16 16 Rate Blood Pressure 111/74 118/76 106/72 O2 Sat by Pulse 100 98 100 Oximetry 02/04/24 02/04/24 02/04/24 12:58 17:01 20:20 Temperature 98.2 F 97.6 F Pulse Rate 79 88 79 Respiratory 16 16 16 Rate Blood Pressure 106/72 118/77 110/82 O2 Sat by Pulse 100 98 99 Oximetry 02/04/24 22:12 Temperature Pulse Rate 81 Respiratory 20 Rate Blood Pressure 105/76 O2 Sat by Pulse 97 Oximetry - Reevaluation(s) Reevaluation #1: 02/03/24 17:04 Medical records reviewed Reevaluation #2: 02/03/24 17:04 Patient symptoms unchanged Reevaluation #3: 02/03/24 17:04 Patient informed of results and questions answered Reevaluation #4: Was pt. sent in by a medical professional or institution (, PA, ARCHITECT INTERN, urgent care, hospital, or [facility]...) When possible be specific @ -no Did you speak to anyone other than the patient for history (EMS, parent, family, police, friend...)? What history was obtained from this source @ -no Did you review nursing and triage notes (agree or disagree)? Why? @ -agree Are old charts reviewed (outside hosp., previous admission, EMS record, old EKG, old radiological studies, urgent care reports/EKG's, [facility] records)? Report findings @ -yes Differential Diagnosis (chest pain, altered mental status, abdominal pain women, abdominal pain men, vaginal bleeding, weakness, fever, dyspnea, syncope, headache, dizziness, GI bleed, back pain, seizure, CVA, palpatations, mental health, musculoskeletal)? @ -prior EKG interpreted by me (3pts min.). @ -no X-rays interpreted by me (1pt min.). @ -no CT interpreted by me (1pt min.). @ -no U/S interpreted by me (1pt. min.). @ -no What testing was considered but not performed or refused? (CT, X-rays, U/S, labs)? Why? @ -none What meds were considered but not given or refused? Why? @ -none Did you discuss the management of the patient with other professionals (professionals i.e. , PA, ARCHITECT INTERN, lab, RT, psych nurse, psychosocial rehabilitation counselor, commercial lending relationship manager, teacher, consular officer, trimming caser)? Give summary @ -no Was smoking cessation discussed for >3mins.? @ -no Was critical care preformed (if so, how long)? @ -no Were there social determinants of health that impacted care today? How? (Homelessness, low income, unemployed, alcoholism, drug addiction, transportation, low edu. Level, literacy, decrease access to med. care, [facility], rehab)? @ -none Was there de-escalation of care discussed even if they declined (Discuss DNR or withdrawal of care, Hospice)? DNR status @ -no What co-morbidities impacted this encounter? (DM, HTN, Smoking, COPD, CAD, Cancer, CVA, ARF, Chemo, Hep., AIDS, mental health diagnosis, sleep apnea, morbid obesity)? @ -none Was patient admitted / discharged? Hospital course, mention meds given and route, prescriptions, significant lab abnormalities, going to OR and other pertinent info. @ - 63 female who will be admitted for chronic disease, symptomatic anemia Admitted Undiagnosed new problem with uncertain prognosis? @ -no Drug Therapy requiring intensive monitoring for toxicity (Heparin, Nitro, Insulin, Cardizem)? @ -no Were any procedures done? @ -no Diagnosis/symptom? @ -symptomatic anemia weakness Acute, or Chronic, or Acute on Chronic? @ -Acute Uncomplicated (without systemic symptoms) or Complicated (systemic symptoms)? @ -Complicated Side effects of treatment? @ -no Exacerbation, Progression, or Severe Exacerbation? @ -exacerbation Poses a threat to life or bodily function? How? (Chest pain, [place], [place], pneumonia, PE, COPD, DKA, ARF, appy, cholecystitis, CVA, Diverticulitis, Homicidal, Suicidal, threat to staff... and all critical care pts) @ -yes chronic disease Reevaluation #5: Differential Weakness: Hypoglycemia, shock, sepsis, hyponatremia, anemia, infection, [place], ETOH, adverse medicine reaction, overdose, stroke, this is not meant to be an all-inclusive list. - Consultations Consultation #1: Spoke with admitting physicians who agrees to admit this patient EKG Findings - EKG Comments: EKG Findings:: EKG is sinus 86 TN 116 QRS 90 QTc 397 - EKG Results: EKG: interpreted by FRANCESCA Medical Decision Making - Medical Decision Making 63 female who will be admitted for chronic disease, symptomatic anemia - Lab Data Result diagrams: 02/06/24 10:18 02/05/24 05:12 Lab Results 02/03/24 02/03/24 02/03/24 Range/Units 16:44 16:44 16:44 WBC 14.8 H (3.8-10.6) k/uL RBC 1.82 L (3.80-5.40) m/uL Hgb 4.8 L* D (11.4-16.0) gm/dL Hct 16.9 L* (34.0-46.0) % MCV 92.9 (80.0-100.0) fL MCH 26.2 (25.0-35.0) pg MCHC 28.2 L (31.0-37.0) g/dL RDW 26.5 H (11.5-15.5) % Plt Count 2146 H* (150-450) k/uL MPV 7.9 Neutrophils % Not Reportable Neutrophils % (Manual) 83 % Band Neuts % (Manual) 1 % Lymphocytes % Not Reportable Lymphocytes % (Manual) 5 % Monocytes % Not Reportable Monocytes % (Manual) 4 % Eosinophils % Not Reportable Eosinophils % (Manual) 3 % Basophils % Not Reportable Basophils % (Manual) 5 % Metamyelocytes % 1 % Myelocytes % 1 % Neutrophils # Not Reportable Neutrophils # (Manual) 12.40 H (1.3-7.7) k/uL Lymphocytes # Not Reportable Lymphocytes # (Manual) 0.74 L (1.0-4.8) k/uL Monocytes # Not Reportable Monocytes # (Manual) 0.59 (0-1.0) k/uL Eosinophils # Not Reportable Eosinophils # (Manual) 0.44 (0-0.7) k/uL Basophils # Not Reportable Basophils # (Manual) 0.74 H (0-0.2) k/uL Metamyelocytes # (Man) 0.15 H (0) k/uL Myelocytes # (Manual) 0.15 H (0) k/uL Nucleated RBCs 5 H (0-0) /100 WBC Manual Slide Review Performed Polychromasia Present Hypochromasia Marked Poikilocytosis Marked Anisocytosis Marked Microcytosis Slight Macrocytosis Moderate Target Cells Present APTT 23.4 (22.0-30.0) sec Sodium 138 (137-145) mmol/L Potassium 4.4 (3.5-5.1) mmol/L Chloride 110 H (98-107) mmol/L Carbon Dioxide 21 L (22-30) mmol/L Anion Gap 7 mmol/L BUN 19 H (7-17) mg/dL Creatinine 0.88 (0.52-1.04) mg/dL Est GFR (CKD-EPI)AfAm 83 (>60 ml/min/1.73 sqM) Est GFR (CKD-EPI)NonAf 72 (>60 ml/min/1.73 sqM) Glucose 81 (74-99) mg/dL Calcium 9.7 (8.4-10.2) mg/dL Magnesium 1.8 (1.6-2.3) mg/dL Iron (50-170) UG/DL TIBC (228-460) UG/DL % Saturation (12.00-45.00) Transferrin (204.0-354.0) mg/dL Ferritin (10.0-291.0) ng/mL Total Bilirubin 0.6 (0.2-1.3) mg/dL AST 42 H (14-36) U/L ALT 21 (4-34) U/L Alkaline Phosphatase 51 (38-126) U/L Troponin I (0.000-0.034) ng/mL Total Protein 6.3 (6.3-8.2) g/dL Albumin 4.1 (3.5-5.0) g/dL Lipase 328 H (23-300) U/L Blood Type Blood Type Recheck Bld Type Recheck Status Antibody Screen Crossmatch Spec Expiration Date 02/03/24 02/03/24 02/03/24 Range/Units 16:44 16:44 16:47 WBC (3.8-10.6) k/uL RBC (3.80-5.40) m/uL Hgb (11.4-16.0) gm/dL Hct (34.0-46.0) % MCV (80.0-100.0) fL MCH (25.0-35.0) pg MCHC (31.0-37.0) g/dL RDW (11.5-15.5) % Plt Count (150-450) k/uL MPV Neutrophils % Neutrophils % (Manual) % Band Neuts % (Manual) % Lymphocytes % Lymphocytes % (Manual) % Monocytes % Monocytes % (Manual) % Eosinophils % Eosinophils % (Manual) % Basophils % Basophils % (Manual) % Metamyelocytes % % Myelocytes % % Neutrophils # Neutrophils # (Manual) (1.3-7.7) k/uL Lymphocytes # Lymphocytes # (Manual) (1.0-4.8) k/uL Monocytes # Monocytes # (Manual) (0-1.0) k/uL Eosinophils # Eosinophils # (Manual) (0-0.7) k/uL Basophils # Basophils # (Manual) (0-0.2) k/uL Metamyelocytes # (Man) (0) k/uL Myelocytes # (Manual) (0) k/uL Nucleated RBCs (0-0) /100 WBC Manual Slide Review Polychromasia Hypochromasia Poikilocytosis Anisocytosis Microcytosis Macrocytosis Target Cells APTT (22.0-30.0) sec Sodium (137-145) mmol/L Potassium (3.5-5.1) mmol/L Chloride (98-107) mmol/L Carbon Dioxide (22-30) mmol/L Anion Gap mmol/L BUN (7-17) mg/dL Creatinine (0.52-1.04) mg/dL Est GFR (CKD-EPI)AfAm (>60 ml/min/1.73 sqM) Est GFR (CKD-EPI)NonAf (>60 ml/min/1.73 sqM) Glucose (74-99) mg/dL Calcium (8.4-10.2) mg/dL Magnesium (1.6-2.3) mg/dL Iron 32 L (50-170) UG/DL TIBC 396 (228-460) UG/DL % Saturation 8.08 L (12.00-45.00) Transferrin 283.0 (204.0-354.0) mg/dL Ferritin 70.3 (10.0-291.0) ng/mL Total Bilirubin (0.2-1.3) mg/dL AST (14-36) U/L ALT (4-34) U/L Alkaline Phosphatase (38-126) U/L Troponin I <0.012 (0.000-0.034) ng/mL Total Protein (6.3-8.2) g/dL Albumin (3.5-5.0) g/dL Lipase (23-300) U/L Blood Type B Negative Blood Type Recheck B Neg Bld Type Recheck Status No Antibody Screen NEGATIVE Crossmatch See Detail Spec Expiration Date 02/06/2024 - 4370 - EKG Data -: EKG Interpreted by Me Disposition Clinical Impression: Hypertension, Anemia, Symptomatic anemia, History of iron deficiency anemia, Chronic myeloid leukemia (CML), BCR/ABL-positive Disposition[facility] Condition: Serious Is patient prescribed a controlled substance at d/c from ED?: No Time of Disposition: 17:00
[2024-02-03] MEDS: HYDROmorphone 0.5 MG/0.5 ML SYRINGE IVP STA (16:54)
[2024-02-03] MEDS: PANTOPRAZOLE 40 MG/10 ML VIAL IVP STA (16:54)
[2024-02-03] MEDS: ONDANSETRON 4 MG/2 ML VIAL IVP STA (16:54)
[2024-02-03] MEDS: SODIUM CHLORIDE 0.9% 1,000 ML IV STA (16:55)
[2024-02-03 17:04] LABS: Anisocytosis Marked; Hypochromasia Marked; MCH 26.2 pg (25.0-35.0); MCHC 28.2 g/dL (31.0-37.0); MCV 92.9 fL (80.0-100.0); Macrocytosis Moderate; Mean Platelet Volume 7.9; Microcytosis Slight; Poikilocytosis Marked; RBC 1.82 m/uL (3.80-5.40)
[2024-02-03 17:06] LABS: RDW 26.5 % (11.5-15.5)
[2024-02-03 17:10] LABS: ALT 21 U/L (4-34); AST 42 U/L (14-36); African American GFR (CKD) 83 (>60 ml/min/1.73 sqM); Albumin 4.1 g/dL (3.5-5.0); Alkaline Phosphatase 51 U/L (38-126); Anion Gap 7 mmol/L; Blood Urea Nitrogen 19 mg/dL (7-17); Calcium 9.7 mg/dL (8.4-10.2); Carbon Dioxide 21 mmol/L (22-30); Chloride 110 mmol/L (98-107); Glucose 81 mg/dL (74-99); HGB 4.8 gm/dL (11.4-16.0); Lipase 328 U/L (23-300); Magnesium 1.8 mg/dL (1.6-2.3); Non-African American GFR(CKD) 72 (>60 ml/min/1.73 sqM); Potassium 4.4 mmol/L (3.5-5.1); Sodium 138 mmol/L (137-145); Total Bilirubin 0.6 mg/dL (0.2-1.3); Total Protein 6.3 g/dL (6.3-8.2)
[2024-02-03 17:11] LABS: HCT 16.9 % (34.0-46.0); Platelet Count 2146 k/uL (150-450)
[2024-02-03] MEDS ORDERED: NALOXONE 0.4 MG/ML 1 ML VIAL IV PRN (17:12)
[2024-02-03 17:48] LABS: Band Neutrophils % 1 %; Basophils # (M) 0.74 k/uL (0-0.2); Eosinophils # (M) 0.44 k/uL (0-0.7); Lymphocytes # (M) 0.74 k/uL (1.0-4.8); Metamyelocytes # (M) 0.15 k/uL (0); Metamyelocytes % 1 %; Monocytes # (M) 0.59 k/uL (0-1.0); Myelocytes # (M) 0.15 k/uL (0); Myelocytes % 1 %; Neutrophils % (M) 83 %; Nucleated Red Blood Cells 5 /100 WBC (0-0); Polychromasia Present; Target Cells Present; Total Cells Counted 200; WBC 14.8 k/uL (3.8-10.6)
[2024-02-03] MEDS: ONDANSETRON 4 MG/2 ML VIAL IVP PRN (22:06)
[2024-02-03] MEDS: HYDROmorphone 0.5 MG/0.5 ML SYRINGE IVP PRN (22:06)
[2024-02-04] MEDS: BACLOFEN 10 MG TAB PO SCH (03:15)
[2024-02-04] MEDS: GABAPENTIN 300 MG CAP PO SCH (03:16)
[2024-02-04] MEDS: hydrOXYzine HCL 25 MG TAB PO SCH (03:24)
[2024-02-04 07:16] LABS: Anisocytosis Moderate; HCT 22.1 % (34.0-46.0); Hypochromasia Marked; MCHC 30.1 g/dL (31.0-37.0); MCV 89.6 fL (80.0-100.0); Macrocytosis Slight; Mean Platelet Volume 8.3; Poikilocytosis Marked; RBC 2.47 m/uL (3.80-5.40); RDW 22.4 % (11.5-15.5)
[2024-02-04 07:29] LABS: HGB 6.7 gm/dL (11.4-16.0); Platelet Count 1489 k/uL (150-450)
[2024-02-04 09:42] LABS: Band Neutrophils % 1 %; Eosinophils # (M) 0.41 k/uL (0-0.7); Lymphocytes # (M) 0.93 k/uL (1.0-4.8); Monocytes # (M) 0.72 k/uL (0-1.0); Myelocytes % 1 %; Neutrophils % (M) 79 %; Nucleated Red Blood Cells 5 /100 WBC (0-0); Total Cells Counted 200; WBC 10.3 k/uL (3.8-10.6)
[2024-02-04 09:44] LABS: Polychromasia Present; Target Cells Present
[2024-02-04] MEDS: PANTOPRAZOLE 40 MG/10 ML VIAL IV SCH (10:27)
--- NOTE | 2024-02-04 12:14 | P.HPIM ---
History of Present Illness H&P Date: 02/04/24 This is a 63-year-old female, recently discharged on 01/09/24 with similar clinical presentation, returned to the ER, with complaints of increased fatigue, weakness, exertional dyspnea, nausea, no emesis diffuse abdominal pain, chronic back pain. Denies hemoptysis or blood in stool-denies tarry stools. Reports 3 to 4 days after discharge she was resumed on her Gleevec. Vera good for about 2 weeks, then began to "feel tired and yucky ",in a patient with past medical history significant for CML on Gleevec, extensive workup within the last year for anemia, recent EGD 01/08/2024 3 scattered nonbleeding duodenal AVMs, status post cautery, esophagus and stomach appeared normal. Hemoglobin on admission 4.8, received 2 units of packed RBCs, currently 6.7. Platelet count 1489. Okay BUN 19, creatinine 0.88, electrolytes within normal limits. Troponin negative x 1. Lipase 328.VSS. Review of Systems ROS Statement: Those systems with pertinent positive or pertinent negative responses have been documented in the HPI. ROS Other: All systems not noted in ROS Statement are negative. Past Medical History Past Medical History: Cancer, COPD, GERD/Reflux, Pneumonia, Rheumatoid Arthritis (RA) Additional Past Medical History / Comment(s): IP ADMISSION FORGASTRIC ULCER IN MAY 2022 WITH HIGH PLATELET & WHITE COUNT THROMBYTOSIS- (SEES DR REBOLLEDO). COPD, leukoplakia of the vocal cords, chronic shoulder back and neck pain, acid reflux, depression, raynaud's syndrome. takes aldactone for hair loss. CML History of Any Multi-Drug Resistant Organisms: MRSA Date of last positivie culture/infection: 05/03/19 MDRO Source:: MRSA FACE Past Surgical History: Back Surgery, Cholecystectomy, Hernia Repair, Orthopedic Surgery, Tonsillectomy Additional Past Surgical History / Comment(s): arthroscopic shoulder, vocal cord scraping, dariana fundoplasty, CERVICAL FUSSION, recent EGD, colonoscopy. VENTRAL HERNIA. Past Anesthesia/Blood Transfusion Reactions: Blood Transfusion Reaction Additional Past Anesthesia/Blood Transfusion Reaction / Comment(s): TRANSFUSIONS WITH GASTRIC ULCER, no previous reactions Past Psychological History: Anxiety, Depression Smoking Status: Current every day smoker Past Alcohol Use History: None Reported Past Drug Use History: None Reported - Past Family History Mother History Unknown: Yes Family Medical History: Cancer Father Family Medical History: Unable to Obtain Medications and Allergies Home Medications Medication Instructions Recorded Confirmed Type Gabapentin 800 mg PO QID 05/01/14 02/03/24 History Topiramate 100 mg PO BID 05/01/14 02/03/24 History HYDROcodone/APAP 7.5-325MG [[place] 1 tab PO QID 03/11/16 02/03/24 History 7.5-325] Baclofen [Lioresal] 20 mg PO HS 07/02/17 02/03/24 History Sertraline [Zoloft] 50 mg PO DAILY 07/02/17 02/03/24 History buPROPion XL [Wellbutrin XL] 300 mg PO DAILY 07/02/17 02/03/24 History Multivit with Calcium,Iron,Min 1 tab PO DAILY 10/21/19 02/03/24 History [Women's Multivitamin] Spironolactone [Aldactone] 25 mg PO DAILY 12/21/21 02/03/24 History Aspirin [Adult Low Dose Aspirin EC] 81 mg PO DAILY 06/07/22 02/03/24 History Omeprazole [PriLOSEC] 20 mg PO AC-BRKFST #90 cap 06/09/22 02/03/24 Rx Clindamycin Phosphate 1 applic TOPICAL BID 01/16/23 02/03/24 History Tretinoin [Tretinoin 0.025%] 1 applic TOPICAL HS 01/16/23 02/03/24 History Albuterol Inhaler [Ventolin Hfa 1 puff INHALATION RT-Q6H PRN 11/05/23 02/03/24 History Inhaler] Imatinib Mesylate 400 mg PO W/SUPPER 12/26/23 02/03/24 History Ondansetron [Zofran] 4 mg PO DAILY PRN 12/26/23 02/03/24 History hydrOXYzine HCL [Atarax] 25 mg PO HS 12/26/23 02/03/24 History polyethylene glycoL 3350 [Miralax] 17 gm PO BID packet 01/09/24 02/03/24 Rx Pantoprazole Sodium [Protonix] 20 mg PO DAILY 02/03/24 02/03/24 History Allergies Allergy/AdvReac Type Severity Reaction Status Date / Time metronidazole [From Flagyl] Allergy Itching, Verified 02/03/24 18:36 BURNING OF SKIN Physical Exam Vitals: Vital Signs Temp Pulse Resp BP Pulse Ox 02/04/24 11:08 98.2 F 78 16 111/74 100 02/04/24 10:48 98.1 F 74 16 108/72 100 02/04/24 10:31 98 F 78 16 105/69 100 02/04/24 06:44 81 18 95/66 97 02/04/24 05:09 77 18 101/61 96 02/04/24 03:43 98.2 F 73 18 117/74 97 02/04/24 02:20 18 02/04/24 02:00 97.9 F 81 16 106/64 98 02/04/24 01:40 97.6 F 76 18 100/60 98 02/04/24 01:25 97.6 F 72 20 109/65 99 02/04/24 00:49 98.2 F 81 16 107/69 99 02/03/24 23:46 77 16 102/65 98 02/03/24 23:11 98.7 F 75 18 104/67 100 02/03/24 22:51 99 F 83 16 102/66 95 02/03/24 22:38 97.6 F 87 18 110/68 98 02/03/24 16:17 94 20 123/72 100 Intake and Output 02/03/24 02/04/24 02/04/24 22:59 06:59 14:59 Intake Total 0 620 0 Balance 0 620 0 Intake: Blood Product 0 620 0 Rc Irr As1 Unit 310 [id number] Rc Irr As1 Unit 0 310 [id number] Rc Irr As1 Unit 0 [id number] Other: Weight 45.813 kg VITAL SIGNS: [As above] GENERAL: alert and oriented x 3, sitting up, no acute distress HEENT: Normocephalic, atraumatic conjunctivae normal, eyes normal. Sclera anicteric NECK: Supple, no JVD. CARDIOVASCULAR: S1, S2 regular. No murmur RESPIRATION: Unlabored, equal air entry ,breath sounds diminished in the bases. ABDOMEN: Soft, nondistended, diffuse tenderness, no guarding. No rigidity, positive bowel sounds LEGS: No edema. no swelling NERVOUS SYSTEM: Cranial N 2-12 grossly normal. No focal deficits. Skin: Warm and dry, no rash noted. Results CBC & Chem 7: 02/04/24 06:40 02/03/24 16:44 Labs: Abnormal Lab Results - Last 24 Hours (Table) 02/03/24 02/03/24 02/03/24 Range/Units 16:44 16:44 16:47 WBC 14.8 H (3.8-10.6) k/uL RBC 1.82 L (3.80-5.40) m/uL Hgb 4.8 L* D (11.4-16.0) gm/dL Hct 16.9 L* (34.0-46.0) % MCHC 28.2 L (31.0-37.0) g/dL RDW 26.5 H (11.5-15.5) % Plt Count 2146 H* (150-450) k/uL Neutrophils # (Manual) 12.40 H (1.3-7.7) k/uL Lymphocytes # (Manual) 0.74 L (1.0-4.8) k/uL Basophils # (Manual) 0.74 H (0-0.2) k/uL Metamyelocytes # (Man) 0.15 H (0) k/uL Myelocytes # (Manual) 0.15 H (0) k/uL Nucleated RBCs 5 H (0-0) /100 WBC Chloride 110 H (98-107) mmol/L Carbon Dioxide 21 L (22-30) mmol/L BUN 19 H (7-17) mg/dL AST 42 H (14-36) U/L Lipase 328 H (23-300) U/L Crossmatch See Detail 02/04/24 Range/Units 06:40 WBC (3.8-10.6) k/uL RBC 2.47 L (3.80-5.40) m/uL Hgb 6.7 L* D (11.4-16.0) gm/dL Hct 22.1 L (34.0-46.0) % MCHC 30.1 L (31.0-37.0) g/dL RDW 22.4 H (11.5-15.5) % Plt Count 1489 H* (150-450) k/uL Neutrophils # (Manual) 8.20 H (1.3-7.7) k/uL Lymphocytes # (Manual) 0.93 L (1.0-4.8) k/uL Basophils # (Manual) (0-0.2) k/uL Metamyelocytes # (Man) (0) k/uL Myelocytes # (Manual) 0.10 H (0) k/uL Nucleated RBCs 5 H (0-0) /100 WBC Chloride (98-107) mmol/L Carbon Dioxide (22-30) mmol/L BUN (7-17) mg/dL AST (14-36) U/L Lipase (23-300) U/L Crossmatch Assessment and Plan Assessment: Recurrent acute on chronic symptomatic severe anemia, related to CML, on Gleevec. Status post multiple workups last year without evidence of GI bleed. Recent EGD 01/08/2024 reported nonbleeding scattered duodenal AVMs. CML, diagnosed December 2022 ,started treatments in February 2023 Acute on chronic thrombocytosis, related to the above Leukocytosis Chronic iron deficient anemia, receiving IV iron Chronic thoracic back pain and tenderness, prior MRI reported age-related degen erative changes throughout the thoracic spine with multilevel disc bulging most pronounced at T2-T3, central disc protrusion C6-C7. History of COPD, stable Hypertension GERD Rheumatoid arthritis History of anxiety/depression Continued ongoing nicotine dependence Moderate calorie protein malnutrition Incidental elevated lipase, no clinical signs or symptoms of pancreatitis. Plan: Continue on current medication regimen ,monitoring and symptomatic treatment. 1 unit packed RBCs ordered for hemoglobin less than 7. IV Venofer ordered. Oncology/hematology consult in place. GI consult initiated. PPI in place for GI prophylaxis. The impression and plan of care has been dictated as directed. : I performed a history and examination of this patient, discussed the same with the dictator. I agree with the dictator's note ,documented as a scribe. Any additional findings or plans will be noted.
[2024-02-04] MEDS: SODIUM FERRIC GLUCONAT-SUCROSE 125 MG in SODIUM CHLORIDE 0.9% 100 ML IVPB SCH (13:18)
--- NOTE | 2024-02-04 14:59 | P.CONS ---
History of Present Illness - Reason for Consult Consult date: 02/04/24 CML Requesting physician: Costa Guadarrama - Chief Complaint dizziness, anemia - History of Present Illness Mrs. Pickard is a 63-year-old woman with a past medical history significant for CML on Gleevec as well as iron deficiency. Patient presented with symptomatic anemia. She was admitted most recently on 01/04/24 for anemia and received blood transfusions and IV iron. She had f/u with Dr. Dawkins since that discharge and resumed Gleevac. But reports she began to have progressing dizziness and weakness, causing her to present to the ED for further evaluation. Pt denies blood in stool and melena, and hematuria. During last admit, pt underwent EGD which revealed 3 scattered duodenal AVMs with no active bleeding, s/p cautery, and has continued on PPI daily Upon admit hgb was 4.8, WBC 14.8, plt 2146. S/p 2 units PRBCs, with an appropriate response in hgb, 6.7 today. Additional unit of PRBCs ordered Review of Systems 10 point ROS is negative except as stated in the HPI Past Medical History Past Medical History: Cancer, COPD, GERD/Reflux, Pneumonia, Rheumatoid Arthritis (RA) Additional Past Medical History / Comment(s): IP ADMISSION FORGASTRIC ULCER IN MAY 2022 WITH HIGH PLATELET & WHITE COUNT THROMBYTOSIS- (SEES DR DAWKINS). COPD, leukoplakia of the vocal cords, chronic shoulder back and neck pain, acid reflux, depression, raynaud's syndrome. takes aldactone for hair loss. CML History of Any Multi-Drug Resistant Organisms: MRSA Year Discovered:: 05/03/19 MDRO Source:: MRSA FACE Past Surgical History: Back Surgery, Cholecystectomy, Hernia Repair, Orthopedic Surgery, Tonsillectomy Additional Past Surgical History / Comment(s): arthroscopic shoulder, vocal cord scraping, dariana fundoplasty, CERVICAL FUSSION, recent EGD, colonoscopy. VENTRAL HERNIA. Past Anesthesia/Blood Transfusion Reactions: Blood Transfusion Reaction Additional Past Anesthesia/Blood Transfusion Reaction / Comm: TRANSFUSIONS WITH GASTRIC ULCER, no previous reactions Past Psychological History: Anxiety, Depression Smoking Status: Current every day smoker Past Alcohol Use History: None Reported Past Drug Use History: None Reported - Past Family History Mother History Unknown: Yes Family Medical History: Cancer Father Family Medical History: Unable to Obtain Medications and Allergies Home Medications Medication Instructions Recorded Confirmed Type Gabapentin 800 mg PO QID 05/01/14 02/03/24 History Topiramate 100 mg PO BID 05/01/14 02/03/24 History HYDROcodone/APAP 7.5-325MG [[place] 1 tab PO QID 03/11/16 02/03/24 History 7.5-325] Baclofen [Lioresal] 20 mg PO HS 07/02/17 02/03/24 History Sertraline [Zoloft] 50 mg PO DAILY 07/02/17 02/03/24 History buPROPion XL [Wellbutrin XL] 300 mg PO DAILY 07/02/17 02/03/24 History Multivit with Calcium,Iron,Min 1 tab PO DAILY 10/21/19 02/03/24 History [Women's Multivitamin] Spironolactone [Aldactone] 25 mg PO DAILY 12/21/21 02/03/24 History Aspirin [Adult Low Dose Aspirin EC] 81 mg PO DAILY 06/07/22 02/03/24 History Omeprazole [PriLOSEC] 20 mg PO -BRKFST #90 cap 06/09/22 02/03/24 Rx Clindamycin Phosphate 1 applic TOPICAL BID 01/16/23 02/03/24 History Tretinoin [Tretinoin 0.025%] 1 applic TOPICAL HS 01/16/23 02/03/24 History Albuterol Inhaler [Ventolin Hfa 1 puff INHALATION RT-Q6H PRN 11/05/23 02/03/24 History Inhaler] Imatinib Mesylate 400 mg PO W/SUPPER 12/26/23 02/03/24 History Ondansetron [Zofran] 4 mg PO DAILY PRN 12/26/23 02/03/24 History hydrOXYzine HCL [Atarax] 25 mg PO HS 12/26/23 02/03/24 History polyethylene glycoL 3350 [Miralax] 17 gm PO BID packet 01/09/24 02/03/24 Rx Pantoprazole Sodium [Protonix] 20 mg PO DAILY 02/03/24 02/03/24 History Allergies Allergy/AdvReac Type Severity Reaction Status Date / Time metronidazole [From Flagyl] Allergy Itching, Verified 02/03/24 18:36 BURNING OF SKIN Physical Exam Vitals: Vital Signs Temp Pulse Resp BP Pulse Ox 02/04/24 11:08 98.2 F 78 16 111/74 100 02/04/24 10:48 98.1 F 74 16 108/72 100 02/04/24 10:31 98 F 78 16 105/69 100 02/04/24 06:44 81 18 95/66 97 02/04/24 05:09 77 18 101/61 96 02/04/24 03:43 98.2 F 73 18 117/74 97 02/04/24 02:20 18 02/04/24 02:00 97.9 F 81 16 106/64 98 02/04/24 01:40 97.6 F 76 18 100/60 98 02/04/24 01:25 97.6 F 72 20 109/65 99 02/04/24 00:49 98.2 F 81 16 107/69 99 02/03/24 23:46 77 16 102/65 98 02/03/24 23:11 98.7 F 75 18 104/67 100 02/03/24 22:51 99 F 83 16 102/66 95 02/03/24 22:38 97.6 F 87 18 110/68 98 02/03/24 16:17 94 20 123/72 100 Intake and Output 02/03/24 02/04/24 02/04/24 22:59 06:59 14:59 Intake Total 0 620 0 Balance 0 620 0 Intake: Blood Product 0 620 0 Rc Irr As1 Unit 310 [id number] Rc Irr As1 Unit 0 310 [id number] Rc Irr As1 Unit 0 [id number] Other: Weight 45.813 kg - Constitutional General appearance: no acute distress, thin - EENT ENT: hearing grossly normal - Respiratory Respiratory: right: rales (crackle RLL) - Cardiovascular Rhythm: regular - Gastrointestinal General gastrointestinal: normal bowel sounds, soft, no tenderness - Integumentary Integumentary: no cyanotic, pale - Psychiatric Psychiatric: A&O x's 3 Results CBC & Chem 7: 02/04/24 06:40 02/03/24 16:44 Labs: Abnormal Lab Results - Last 24 Hours (Table) 02/03/24 02/03/24 02/03/24 Range/Units 16:44 16:44 16:47 WBC 14.8 H (3.8-10.6) k/uL RBC 1.82 L (3.80-5.40) m/uL Hgb 4.8 L* D (11.4-16.0) gm/dL Hct 16.9 L* (34.0-46.0) % MCHC 28.2 L (31.0-37.0) g/dL RDW 26.5 H (11.5-15.5) % Plt Count 2146 H* (150-450) k/uL Neutrophils # (Manual) 12.40 H (1.3-7.7) k/uL Lymphocytes # (Manual) 0.74 L (1.0-4.8) k/uL Basophils # (Manual) 0.74 H (0-0.2) k/uL Metamyelocytes # (Man) 0.15 H (0) k/uL Myelocytes # (Manual) 0.15 H (0) k/uL Nucleated RBCs 5 H (0-0) /100 WBC Chloride 110 H (98-107) mmol/L Carbon Dioxide 21 L (22-30) mmol/L BUN 19 H (7-17) mg/dL AST 42 H (14-36) U/L Lipase 328 H (23-300) U/L Crossmatch See Detail 02/04/24 Range/Units 06:40 WBC (3.8-10.6) k/uL RBC 2.47 L (3.80-5.40) m/uL Hgb 6.7 L* D (11.4-16.0) gm/dL Hct 22.1 L (34.0-46.0) % MCHC 30.1 L (31.0-37.0) g/dL RDW 22.4 H (11.5-15.5) % Plt Count 1489 H* (150-450) k/uL Neutrophils # (Manual) 8.20 H (1.3-7.7) k/uL Lymphocytes # (Manual) 0.93 L (1.0-4.8) k/uL Basophils # (Manual) (0-0.2) k/uL Metamyelocytes # (Man) (0) k/uL Myelocytes # (Manual) 0.10 H (0) k/uL Nucleated RBCs 5 H (0-0) /100 WBC Chloride (98-107) mmol/L Carbon Dioxide (22-30) mmol/L BUN (7-17) mg/dL AST (14-36) U/L Lipase (23-300) U/L Crossmatch Assessment and Plan (1) Anemia Current Visit: Yes Status: Acute Priority: High Code(s): D64.9 - ANEMIA, UNSPECIFIED SNOMED Code(s): 846465613 (2) Chronic myeloid leukemia (CML), BCR/ABL-positive Current Visit: Yes Status: Chronic Priority: High Code(s): C92.10 - CHRONIC MYELOID LEUK, BCR/ABL-POSITIVE, NOT ACHIEVE REMIS SNOMED Code(s): 32980943 (3) Thrombocytosis Current Visit: Yes Status: Chronic Priority: Medium Code(s): D75.839 - THROMBOCYTOSIS, UNSPECIFIED SNOMED Code(s): 3292636 Plan: #Iron deficiency anemia -Admitted on 01/04/24 and received 3 units of packed red blood cells, and received parenteral IV. Underwent EGD which revealed 3 scattered duodenal AVMs with no active bleeding, s/p cautery -Outpatient CBC on 01/14/2024 revealed hemoglobin of 10.9, at which time she resumed Gleevac -Clinically, she denies abd pain, melena and ariane blood in stool. But was experiencing weakness and dizziness [employer]OR [employer] -Upon admit, hgb noted at 4.8. S/p 2 units PRBCs with appropriate response, hgb 6.7 today. Additional unit PRBCs ordered -Will repeat iron studies and ferritin on admission blood -Continue PPI daily #CML -Currently on Gleevec, which has been held intermittently due to concern for intolerance -She was taking this for 3 weeks prior to this admission -Hold Gleevec inpatient -Instructed pt to continue to hold Gleevec until hospital f/u next week. Due to increased risk for bleeding with Gleevec, may need to consider changing treatment. Will discuss further at upcoming appt attests: I have seen and examined patient, performed H&P, developed impression and plan of care. Discussed with dictator. Agree with documentation, dictated as a scribe
--- NOTE | 2024-02-04 15:03 | P.CONS ---
History of Present Illness - Reason for Consult Consult date: 02/04/24 Anemia, CML, history of AVMs Requesting physician: Milli Babcock - Chief Complaint Weakness - History of Present Illness Pleasant 63-year-old female who presented to the emergency department yesterday with complaints of weakness, lightheaded and dizziness. She was concerned with low hemoglobin. Her initial blood work showed a hemoglobin of 4.8. Gastroenterology was consulted for anemia. She has a history of CML diagnosed about a year ago with chronic anemia and known iron deficiency anemia who requires parental iron infusions as needed. She has had about 6 or 7 blood transfusions in the past year. She has been on Gleevec for her CML and was discontinued during her last hospitalization for low hemoglobin and iron deficiency anemia. 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 States she followed up with Dr. Ramon and he resumed her Gleevec. 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 Driver. She has had multiple workup for anemia including most recent upper endoscopy 06/11/[address] Alexis with findings of mild gastritis with no active bleeding. 12/29/[address] Alexis with findings of gastritis, previous to that in August 2022 EGD and colonoscopy with Dr. Alexis with findings of diverticulosis external hemorrhoids and EGD with findings of hemorrhagic gastritis with no active bleeding. In May 2022 finding of pyloric channel ulcer 2 to 3 mm with no active bleeding but thought to be the source of GI bleed. She denies any blood in her stool or black stool. States she does get some stomach pains and decreased appetite which she thinks secondary to her medication. She was seen by hematology this morning and they again are stopping her Gleevec. She is status post 2 units of blood hemoglobin 6.7 Review of Systems REVIEW OF SYSTEMS: CARDIOPULMONARY: No chest pain or shortness of breath. Gastrointestinal: No abdominal pain. No nausea or vomiting. No hematemesis, coffee-ground emesis. No rectal bleeding, or melena. GENITOURINARY: No dysuria or hematuria. MUSCULOSKELETAL: Reports normal range of motion., Joint pain. SKIN: No rashes. No jaundice. ENDOCRINE: No chills, fevers. No excessive weight gain or loss. No polydipsia or polyuria. PSYCHIATRIC: Unremarkable. NEUROLOGY: No change in mental status. Denies dizziness, headache. ENT: Vision unremarkable. CONSTITUTIONAL: Decreased appetite, weight loss. Weakness, dizziness. No fever chills or night sweats. Past Medical History Past Medical History: Cancer, COPD, GERD/Reflux, Pneumonia, Rheumatoid Arthritis (RA) Additional Past Medical History / Comment(s): IP ADMISSION FORGASTRIC ULCER IN MAY 2022 WITH HIGH PLATELET & WHITE COUNT THROMBYTOSIS- (SEES DR REBOLLEDO). COPD, leukoplakia of the vocal cords, chronic shoulder back and neck pain, acid reflux, depression, raynaud's syndrome. takes aldactone for hair loss. CML History of Any Multi-Drug Resistant Organisms: MRSA Year Discovered:: 05/03/19 MDRO Source:: MRSA FACE Past Surgical History: Back Surgery, Cholecystectomy, Hernia Repair, Orthopedic Surgery, Tonsillectomy Additional Past Surgical History / Comment(s): arthroscopic shoulder, vocal cord scraping, dariana fundoplasty, CERVICAL FUSSION, recent EGD, colonoscopy. VENTRAL HERNIA. Past Anesthesia/Blood Transfusion Reactions: Blood Transfusion Reaction Additional Past Anesthesia/Blood Transfusion Reaction / Comm: TRANSFUSIONS WITH GASTRIC ULCER, no previous reactions Past Psychological History: Anxiety, Depression Smoking Status: Current every day smoker Past Alcohol Use History: None Reported Past Drug Use History: None Reported - Past Family History Mother History Unknown: Yes Family Medical History: Cancer Father Family Medical History: Unable to Obtain Medications and Allergies Home Medications Medication Instructions Recorded Confirmed Type Gabapentin 800 mg PO QID 05/01/14 02/03/24 History Topiramate 100 mg PO BID 05/01/14 02/03/24 History HYDROcodone/APAP 7.5-325MG [[place] 1 tab PO QID 03/11/16 02/03/24 History 7.5-325] Baclofen [Lioresal] 20 mg PO HS 07/02/17 02/03/24 History Sertraline [Zoloft] 50 mg PO DAILY 07/02/17 02/03/24 History buPROPion XL [Wellbutrin XL] 300 mg PO DAILY 07/02/17 02/03/24 History Multivit with Calcium,Iron,Min 1 tab PO DAILY 10/21/19 02/03/24 History [Women's Multivitamin] Spironolactone [Aldactone] 25 mg PO DAILY 12/21/21 02/03/24 History Aspirin [Adult Low Dose Aspirin EC] 81 mg PO DAILY 06/07/22 02/03/24 History Omeprazole [PriLOSEC] 20 mg PO AC-BRKFST #90 cap 06/09/22 02/03/24 Rx Clindamycin Phosphate 1 applic TOPICAL BID 01/16/23 02/03/24 History Tretinoin [Tretinoin 0.025%] 1 applic TOPICAL HS 01/16/23 02/03/24 History Albuterol Inhaler [Ventolin Hfa 1 puff INHALATION RT-Q6H PRN 11/05/23 02/03/24 History Inhaler] Imatinib Mesylate 400 mg PO W/SUPPER 12/26/23 02/03/24 History Ondansetron [Zofran] 4 mg PO DAILY PRN 12/26/23 02/03/24 History hydrOXYzine HCL [Atarax] 25 mg PO HS 12/26/23 02/03/24 History polyethylene glycoL 3350 [Miralax] 17 gm PO BID packet 01/09/24 02/03/24 Rx Pantoprazole Sodium [Protonix] 20 mg PO DAILY 02/03/24 02/03/24 History Allergies Allergy/AdvReac Type Severity Reaction Status Date / Time metronidazole [From Flagyl] Allergy Itching, Verified 02/03/24 18:36 BURNING OF SKIN Physical Exam Vitals: Vital Signs Temp Pulse Resp BP Pulse Ox 02/04/24 12:58 98.2 F 79 16 106/72 100 02/04/24 12:57 98.2 F 79 16 106/72 100 02/04/24 12:06 78 16 118/76 98 02/04/24 11:08 98.2 F 78 16 111/74 100 02/04/24 10:48 98.1 F 74 16 108/72 100 02/04/24 10:31 98 F 78 16 105/69 100 02/04/24 06:44 81 18 95/66 97 02/04/24 05:09 77 18 101/61 96 02/04/24 03:43 98.2 F 73 18 117/74 97 02/04/24 02:20 18 02/04/24 02:00 97.9 F 81 16 106/64 98 02/04/24 01:40 97.6 F 76 18 100/60 98 02/04/24 01:25 97.6 F 72 20 109/65 99 02/04/24 00:49 98.2 F 81 16 107/69 99 02/03/24 23:46 77 16 102/65 98 02/03/24 23:11 98.7 F 75 18 104/67 100 02/03/24 22:51 99 F 83 16 102/66 95 02/03/24 22:38 97.6 F 87 18 110/68 98 02/03/24 16:17 94 20 123/72 100 Intake and Output 02/03/24 02/04/24 02/04/24 22:59 06:59 14:59 Intake Total 0 620 310 Balance 0 620 310 Intake: Blood Product 0 620 310 Rc Irr As1 Unit 310 [id number] Rc Irr As1 Unit 0 310 [id number] Rc Irr As1 Unit 310 [id number] Other: Weight 45.813 kg General appearance: The patient is alert, oriented, appears in no acute distr ess. HET: Head is normocephalic and atraumatic. Conjunctiva pink. Sclera anicteric. Neck: Supple without lymphadenopathy. Trachea midline. Heart: Regular. Lungs: Equal expansion, normal respiratory effort. Abdomen: Soft, thin, nontender, nondistended. Skin: No rashes. No jaundice. Extremities: Normal skin color and turgor. No pedal edema. Neurological: No focal deficits. Alert and oriented x3. Results CBC & Chem 7: 02/04/24 06:40 02/03/24 16:44 Labs: Abnormal Lab Results - Last 24 Hours (Table) 02/03/24 02/03/24 02/03/24 Range/Units 16:44 16:44 16:47 WBC 14.8 H (3.8-10.6) k/uL RBC 1.82 L (3.80-5.40) m/uL Hgb 4.8 L* D (11.4-16.0) gm/dL Hct 16.9 L* (34.0-46.0) % MCHC 28.2 L (31.0-37.0) g/dL RDW 26.5 H (11.5-15.5) % Plt Count 2146 H* (150-450) k/uL Neutrophils # (Manual) 12.40 H (1.3-7.7) k/uL Lymphocytes # (Manual) 0.74 L (1.0-4.8) k/uL Basophils # (Manual) 0.74 H (0-0.2) k/uL Metamyelocytes # (Man) 0.15 H (0) k/uL Myelocytes # (Manual) 0.15 H (0) k/uL Nucleated RBCs 5 H (0-0) /100 WBC Chloride 110 H (98-107) mmol/L Carbon Dioxide 21 L (22-30) mmol/L BUN 19 H (7-17) mg/dL AST 42 H (14-36) U/L Lipase 328 H (23-300) U/L Crossmatch See Detail 02/04/24 Range/Units 06:40 WBC (3.8-10.6) k/uL RBC 2.47 L (3.80-5.40) m/uL Hgb 6.7 L* D (11.4-16.0) gm/dL Hct 22.1 L (34.0-46.0) % MCHC 30.1 L (31.0-37.0) g/dL RDW 22.4 H (11.5-15.5) % Plt Count 1489 H* (150-450) k/uL Neutrophils # (Manual) 8.20 H (1.3-7.7) k/uL Lymphocytes # (Manual) 0.93 L (1.0-4.8) k/uL Basophils # (Manual) (0-0.2) k/uL Metamyelocytes # (Man) (0) k/uL Myelocytes # (Manual) 0.10 H (0) k/uL Nucleated RBCs 5 H (0-0) /100 WBC Chloride (98-107) mmol/L Carbon Dioxide (22-30) mmol/L BUN (7-17) mg/dL AST (14-36) U/L Lipase (23-300) U/L Crossmatch Assessment and Plan (1) Anemia Narrative/Plan: 63-year-old female seen mL on Gleevec with a history of iron deficiency anemia seen multiple times by general surgery and gastroenterology for workup of GI bleeds. No active bleeding ever noted in her workup. Last upper endoscopy was in December of this year with findings of 3 scattered AVMs without any active bleeding status post gold probe ablation. Patient has resumed her Gleevec for her CML which again following resuming medication ends up in the hospital with significant anemia. Will await further recommendations from hematology however patient does not have any signs of GI bleed at this time. Can consider possible small bowel capsule endoscopy but will await recommendations from hematology. Current Visit: Yes Status: Acute Priority: High Code(s): D64.9 - ANEMIA, UNSPECIFIED SNOMED Code(s): 028317322 (2) Chronic myeloid leukemia (CML), BCR/ABL-positive Current Visit: Yes Status: Chronic Priority: High Code(s): C92.10 - CHRONIC MYELOID LEUK, BCR/ABL-POSITIVE, NOT ACHIEVE REMIS SNOMED Code(s): 48355993 (3) Thrombocytosis Current Visit: Yes Status: Chronic Priority: Medium Code(s): D75.839 - THROMBOCYTOSIS, UNSPECIFIED SNOMED Code(s): 2925610 Plan: 1. Continue symptomatic and supportive care 2. IV iron as ordered 3. Daily CBC, transfuse for hemoglobin less than 7 4. No plans on endoscopic evaluation at this time 5. Await further recommendations from hematology 6. Protonix 40 mg daily for GI prophylaxis Thank you for this consultation, we will continue to follow. Dr. Salo Rehman I agree with the dictator's note, documented as a scribe by Zoey Albert.
[2024-02-04 16:19] LABS: % Iron Saturation 8.08 (12.00-45.00); Ferritin 70.3 ng/mL (10.0-291.0)
[2024-02-04] MEDS: SERTRALINE 50 MG TAB PO SCH (20:23)
[2024-02-04] MEDS: buPROPion XL 300 MG TAB.ER.24H PO SCH (20:23)
[2024-02-04] MEDS: TOPIRAMATE 100 MG TAB PO SCH (20:24)
[2024-02-04] MEDS: SPIRONOLACTONE 25 MG TAB PO SCH (20:27)
[2024-02-04] MEDS: HYDROcodone/APAP 7.5-325MG 1 EACH TAB PO SCH (20:27)
[2024-02-04] MEDS: MULTIVITAMINS, THERA 1 EACH TAB PO SCH (20:31)
[2024-02-05] MEDS: ALPRAZolam 0.25 MG TAB PO PRN (01:02)
[2024-02-05 08:39] LABS: ALT 16 U/L (8-44); AST 22 U/L (13-35); Albumin 3.5 g/dL (3.8-4.9); Albumin/Globulin Ratio 2.06 Ratio (1.60-3.17); Alkaline Phosphatase 53 U/L (41-126); BUN/Creat Ratio 15.38 Ratio (12.00-20.00); Blood Urea Nitrogen 12.3 mg/dL (9.0-27.0); Calcium 8.5 mg/dL (8.7-10.3); Carbon Dioxide 22.6 mmol/L (21.6-31.8); Chloride 111 mmol/L (96-109); Globulin 1.7 g/dL (1.6-3.3); Glucose 99 mg/dL (70-110); Potassium 4.6 mmol/L (3.5-5.5); Sodium 141 mmol/L (135-145); Total Bilirubin <0.2 mg/dL (0.3-1.2); Total Protein 5.2 g/dL (6.2-8.2)
[2024-02-05 09:24] LABS: HGB 7.9 g/dL (12.0-15.0); Hypochromasia (M) 2+; MCH 27.6 pg (27.0-32.0); MCHC 30.4 g/dL (32.0-37.0); MCV 90.9 FL (80.0-97.0); Mean Platelet Volume 9.7 FL (9.5-12.2); Platelet Count 1239 X 10*3/uL (140-440); RBC 2.86 X 10*6/uL (4.10-5.20); RDW 22.1 % (11.5-14.5); WBC 9.53 X 10*3/uL (4.50-10.00)
[2024-02-05 10:26] VITALS: BMI 16.5
--- NOTE | 2024-02-05 12:01 | P.PN ---
Subjective Progress Note Date: 02/05/24 H&P Date: 02/04/24 This is a 63-year-old female, recently discharged on 01/09/24 with similar clinical presentation, returned to the ER, with complaints of increased fatigue, weakness, exertional dyspnea, nausea, no emesis diffuse abdominal pain, chronic back pain. Denies hemoptysis or blood in stool-denies tarry stools. Reports 3 to 4 days after discharge she was resumed on her Gleevec. [place] good for about 2 weeks, then began to "feel tired and yucky ",in a patient with past medical history significant for CML on Gleevec, extensive workup within the last year for anemia, recent EGD 01/08/2024 3 scattered nonbleeding duodenal AVMs, status post cautery, esophagus and stomach appeared normal. Hemoglobin on admission 4.8, received 2 units of packed RBCs, currently 6.7. Platelet count 1489. Okay BUN 19, creatinine 0.88, electrolytes within normal limits. Troponin negative x 1. Lipase 328.VSS. 02/05/2024 Gleevec on hold. Status post transfusion of 3 units packed RBCs. hemoglobin increased to 7.9, platelets 1239. Denies active bleeding. receiving IV Venofer. Denies chest pain, palpitations or shortness of breath. Maintaining O2 sats in the 90s on room air. Lightheadedness improving reports diffuse abdominal pain while eating, more so on her right lower quadrant radiating to umbilical area. Renal function improved. Afebrile, normal WBC. Objective - Vital Signs Vital signs: Vital Signs Temp 98.5 F 02/05/24 07:13 Pulse 74 02/05/24 07:13 Resp 16 02/05/24 07:13 BP 93/58 02/05/24 07:13 Pulse Ox 96 02/05/24 07:13 FiO2 Intake & Output 02/04/24 02/05/24 02/05/24 18:59 06:59 18:59 Intake Total 310 Balance 310 Weight 45 kg 45 kg Intake: Blood Product 310 Rc Irr As1 Unit 310 [id number] Other: Voiding Method Toilet Toilet - Exam VITAL SIGNS: [As above] GENERAL: alert and oriented x 3, sitting up, no acute distress HEENT: Normocephalic, atraumatic conjunctivae normal, eyes normal. Sclera anicteric NECK: Supple, no JVD. CARDIOVASCULAR: S1, S2 regular. No murmur RESPIRATION: Unlabored, equal air entry ,breath sounds diminished in the bases. ABDOMEN: Soft, nondistended, diffuse tenderness, greatest in the right lower quadrant to umbilicus, no guarding. No rigidity, positive bowel sounds LEGS: No edema. no swelling NERVOUS SYSTEM: Cranial N 2-12 grossly normal. No focal deficits. Skin: Warm and dry, no rash noted. - Labs CBC & Chem 7: 02/05/24 05:12 02/05/24 05:12 Labs: Abnormal Lab Results - Last 24 Hours (Table) 02/03/24 02/03/24 02/05/24 Range/Units 16:44 16:47 05:12 RBC 2.86 L (4.10-5.20) X 10*6/uL Hgb 7.9 L (12.0-15.0) g/dL Hct 26.0 L (37.2-46.3) % MCHC 30.4 L (32.0-37.0) g/dL RDW 22.1 H (11.5-14.5) % Plt Count 1239 A* (140-440) X 10*3/uL NRBC/100 WBC Diff 0.30 H (0.00-0.01) X 10*3/uL Hypochromasia (manual) 2+ A Chloride (96-109) mmol/L Calcium (8.7-10.3) mg/dL Iron 32 L (50-170) UG/DL % Saturation 8.08 L (12.00-45.00) Total Bilirubin (0.3-1.2) mg/dL Total Protein (6.2-8.2) g/dL Albumin (3.8-4.9) g/dL Crossmatch See Detail 02/05/24 Range/Units 05:12 RBC (4.10-5.20) X 10*6/uL Hgb (12.0-15.0) g/dL Hct (37.2-46.3) % MCHC (32.0-37.0) g/dL RDW (11.5-14.5) % Plt Count (140-440) X 10*3/uL NRBC/100 WBC Diff (0.00-0.01) X 10*3/uL Hypochromasia (manual) Chloride 111 H (96-109) mmol/L Calcium 8.5 L (8.7-10.3) mg/dL Iron (50-170) UG/DL % Saturation (12.00-45.00) Total Bilirubin <0.2 L (0.3-1.2) mg/dL Total Protein 5.2 L (6.2-8.2) g/dL Albumin 3.5 L (3.8-4.9) g/dL Crossmatch Assessment and Plan Assessment: Recurrent acute on chronic symptomatic severe anemia, related to CML, on Gleevec. Status post multiple workups last year without evidence of GI bleed. Recent EGD 01/08/2024 reported nonbleeding scattered duodenal AVMs. CML, diagnosed December 2022 ,started treatments in February 2023 Acute on chronic thrombocytosis, related to the above Leukocytosis Chronic iron deficient anemia, receiving IV iron Chronic thoracic back pain and tenderness, prior MRI reported age-related degenerative changes throughout the thoracic spine with multilevel disc bulging most pronounced at T2-T3, central disc protrusion C6-C7. History of COPD, stable Hypertension GERD Rheumatoid arthritis History of anxiety/depression Continued ongoing nicotine dependence Moderate calorie protein malnutrition Incidental elevated lipase, no clinical signs or symptoms of pancreatitis. Plan: Continue on current medication regimen ,monitoring and symptomatic treatment. Continue with IV Venofer. PPI in place for GI prophylaxis. Close monitoring of hemoglobin, with repeat labs ordered for a.m. Capsule study as per GI, per oncology's request. The impression and plan of care has been dictated as directed. : I performed a history and examination of this patient, discussed the same with the dictator. I agree with the dictator's note ,documented as a scribe. Any additional findings or plans will be noted.
--- NOTE | 2024-02-05 14:16 | P.PN ---
Subjective Progress Note Date: 02/05/24 Principal diagnosis: Anemia Pleasant 63-year-old female who presented to the emergency department yesterday with complaints of weakness, lightheaded and dizziness. She was concerned with low hemoglobin. Her initial blood work showed a hemoglobin of 4.8. Gastroenterology was consulted for anemia. She has a history of CML diagnosed about a year ago with chronic anemia and known iron deficiency anemia who requires parental iron infusions as needed. She has had about 6 or 7 blood transfusions in the past year. She has been on Gleevec for her CML and was discontinued during her last hospitalization for low hemoglobin and iron deficiency anemia. 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 States she followed up with Dr. Ramon and he resumed her Gleevec. 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 Driver. She has had multiple workup for anemia including most recent upper endoscopy 06/11/[address] Alexis with findings of mild gastritis with no active bleeding. 12/29/[address] Alexis with findings of gastritis, previous to that in August 2022 EGD and colonoscopy with Dr. Alexis with findings of diverticulosis external hemorrhoids and EGD with findings of hemorrhagic gastritis with no active bleeding. In May 2022 finding of pyloric channel ulcer 2 to 3 mm with no active bleeding but thought to be the source of GI bleed. She denies any blood in her stool or black stool. States she does get some stomach pains and decreased appetite which she thinks secondary to her medication. She was seen by hematology this morning and they again are stopping her Gleevec. She is status post 2 units of blood hemoglobin 6.7 02/05/2024 Patient seen and examined today as a follow-up. She received 2 units of blood yesterday. Repeat hemoglobin today 7.9. She continues to deny any blood in her stool or black stool. Does have a little bit of abdominal pain which she states is chronic. Was seen by hematology this morning who recommends small bowel capsule endoscopy. They are considering hereditary hemorrhagic telangiectasia. Objective - Vital Signs Vital signs: Vital Signs Temp 98.5 F 02/05/24 07:13 Pulse 74 02/05/24 07:13 Resp 16 02/05/24 07:13 BP 93/58 02/05/24 07:13 Pulse Ox 96 02/05/24 07:13 FiO2 Intake & Output 02/04/24 02/05/24 02/05/24 18:59 06:59 18:59 Intake Total 310 Balance 310 Weight 45 kg 45 kg Intake: Blood Product 310 Rc Irr As1 Unit 310 [id number] Other: Voiding Method Toilet Toilet - Exam General appearance: The patient is alert, oriented, appears in no acute distress. HET: Head is normocephalic and atraumatic. Conjunctiva pink. Sclera anicteric. Neck: Supple without lymphadenopathy. Abdomen: Soft, nontender, nondistended with bowel sounds. No guarding or rigidity. Extremities: Normal skin color and turgor. No pedal edema Skin: No rashes, no jaundice Neurological: No focal deficits. Alert and oriented. - Labs CBC & Chem 7: 02/05/24 05:12 02/05/24 05:12 Labs: Abnormal Lab Results - Last 24 Hours (Table) 02/03/24 02/03/24 02/05/24 Range/Units 16:44 16:47 05:12 RBC 2.86 L (4.10-5.20) X 10*6/uL Hgb 7.9 L (12.0-15.0) g/dL Hct 26.0 L (37.2-46.3) % MCHC 30.4 L (32.0-37.0) g/dL RDW 22.1 H (11.5-14.5) % Plt Count 1239 A* (140-440) X 10*3/uL NRBC/100 WBC Diff 0.30 H (0.00-0.01) X 10*3/uL Hypochromasia (manual) 2+ A Chloride (96-109) mmol/L Calcium (8.7-10.3) mg/dL Iron 32 L (50-170) UG/DL % Saturation 8.08 L (12.00-45.00) Total Bilirubin (0.3-1.2) mg/dL Total Protein (6.2-8.2) g/dL Albumin (3.8-4.9) g/dL Crossmatch See Detail 02/05/24 Range/Units 05:12 RBC (4.10-5.20) X 10*6/uL Hgb (12.0-15.0) g/dL Hct (37.2-46.3) % MCHC (32.0-37.0) g/dL RDW (11.5-14.5) % Plt Count (140-440) X 10*3/uL NRBC/100 WBC Diff (0.00-0.01) X 10*3/uL Hypochromasia (manual) Chloride 111 H (96-109) mmol/L Calcium 8.5 L (8.7-10.3) mg/dL Iron (50-170) UG/DL % Saturation (12.00-45.00) Total Bilirubin <0.2 L (0.3-1.2) mg/dL Total Protein 5.2 L (6.2-8.2) g/dL Albumin 3.5 L (3.8-4.9) g/dL Crossmatch Assessment and Plan (1) Anemia Narrative/Plan: 63-year-old female seen mL on Gleevec with a history of iron deficiency anemia seen multiple times by general surgery and gastroenterology for workup of GI bleeds. No active bleeding ever noted in her workup. Last upper endoscopy was in December of this year with findings of 3 scattered AVMs without any active bleeding status post gold probe ablation. Patient has resumed her Gleevec for her CML which again following resuming medication ends up in the hospital with significant anemia. Will await further recommendations from hematology however patient does not have any signs of GI bleed at this time. Can consider possible small bowel capsule endoscopy but will await recommendations from hematology. Current Visit: Yes Status: Acute Priority: High Code(s): D64.9 - ANEMIA, UNSPECIFIED SNOMED Code(s): 635295041 (2) Chronic myeloid leukemia (CML), BCR/ABL-positive Narrative/Plan: Oncology following Current Visit: Yes Status: Chronic Priority: High Code(s): C92.10 - CHRONIC MYELOID LEUK, BCR/ABL-POSITIVE, NOT ACHIEVE REMIS SNOMED Code(s): 14924188 (3) Thrombocytosis Current Visit: Yes Status: Chronic Priority: Medium Code(s): D75.839 - THROMBOCYTOSIS, UNSPECIFIED SNOMED Code(s): 3031170 Plan: 1. Continue symptomatic and supportive care 2. IV iron as ordered 3. Daily CBC, transfuse for hemoglobin less than 7 4. Protonix 40 mg daily for GI prophylaxis 5. Gleevec on hold 6. Discussed patient with oncology/hematology and they recommend small bowel capsule endoscopy 7. Will plan for small bowel video capsule endoscopy tomorrow morning Thank you for this consultation, we will continue to follow. Dr. Salo Rehman I agree with the dictator's note, documented as a scribe by Zoey Albert.
--- NOTE | 2024-02-05 16:58 | P.PN ---
Subjective Progress Note Date: 02/05/24 Principal diagnosis: KUMAR, severe anemia. Hx CML In f/u today pt is receiving IV iron, tolerating well, energy levels and appetite are poor overall. Denies any visible blood loss or bleeding. Objective - Vital Signs Vital signs: Vital Signs Temp 98.5 F 02/05/24 07:13 Pulse 74 02/05/24 07:13 Resp 16 02/05/24 07:13 BP 93/58 02/05/24 07:13 Pulse Ox 96 02/05/24 07:13 FiO2 Intake & Output 02/04/24 02/05/24 02/05/24 18:59 06:59 18:59 Intake Total 310 Balance 310 Weight 45 kg 45 kg Intake: Blood Product 310 Rc Irr As1 Unit 310 [id number] Other: Voiding Method Toilet Toilet - Constitutional General appearance: Present: cooperative, no acute distress, thin - EENT Eyes: Present: anicteric sclerae, EOMI ENT: Present: hearing grossly normal - Respiratory Details: ersp even and unlabored - Cardiovascular Details: radial pulse 2+, regular - Peripheral edema leg Peripheral Edema: bilateral: None - Gastrointestinal General gastrointestinal: Present: soft - Integumentary Integumentary: Present: pale - Neurologic Neurologic: Present: CNII-XII intact - Musculoskeletal Musculoskeletal: Present: strength equal bilaterally - Psychiatric Psychiatric: Present: A&O x's 3, appropriate affect, intact judgment & insight - Labs CBC & Chem 7: 02/05/24 05:12 02/05/24 05:12 Labs: Abnormal Lab Results - Last 24 Hours (Table) 02/03/24 02/03/24 02/05/24 Range/Units 16:44 16:47 05:12 RBC 2.86 L (4.10-5.20) X 10*6/uL Hgb 7.9 L (12.0-15.0) g/dL Hct 26.0 L (37.2-46.3) % MCHC 30.4 L (32.0-37.0) g/dL RDW 22.1 H (11.5-14.5) % Plt Count 1239 A* (140-440) X 10*3/uL NRBC/100 WBC Diff 0.30 H (0.00-0.01) X 10*3/uL Hypochromasia (manual) 2+ A Chloride (96-109) mmol/L Calcium (8.7-10.3) mg/dL Iron 32 L (50-170) UG/DL % Saturation 8.08 L (12.00-45.00) Total Bilirubin (0.3-1.2) mg/dL Total Protein (6.2-8.2) g/dL Albumin (3.8-4.9) g/dL Crossmatch See Detail 02/05/24 Range/Units 05:12 RBC (4.10-5.20) X 10*6/uL Hgb (12.0-15.0) g/dL Hct (37.2-46.3) % MCHC (32.0-37.0) g/dL RDW (11.5-14.5) % Plt Count (140-440) X 10*3/uL NRBC/100 WBC Diff (0.00-0.01) X 10*3/uL Hypochromasia (manual) Chloride 111 H (96-109) mmol/L Calcium 8.5 L (8.7-10.3) mg/dL Iron (50-170) UG/DL % Saturation (12.00-45.00) Total Bilirubin <0.2 L (0.3-1.2) mg/dL Total Protein 5.2 L (6.2-8.2) g/dL Albumin 3.5 L (3.8-4.9) g/dL Crossmatch Assessment and Plan (1) Chronic myeloid leukemia (CML), BCR/ABL-positive Current Visit: Yes Status: Chronic Priority: High Code(s): C92.10 - CHRONIC MYELOID LEUK, BCR/ABL-POSITIVE, NOT ACHIEVE REMIS SNOMED Code(s): 25907074 (2) Iron deficiency anemia Current Visit: Yes Status: Chronic Priority: Low Code(s): D50.9 - IRON DEFICIENCY ANEMIA, UNSPECIFIED SNOMED Code(s): 61004891 (3) Essential thrombocythemia Current Visit: No Status: Chronic Priority: Medium Code(s): D47.3 - ESSENTIAL (HEMORRHAGIC) THROMBOCYTHEMIA SNOMED Code(s): 874800884 Plan: Iron deficiency anemia -Admitted 01/04/24, received 3 units PRBCs, parenteral iron. EGD revealed 3 duodenal AVMs, no active bleeding, s/p cautery -Outpatient CBC on 01/14/2024 revealed hemoglobin of 10.9, at which time she resumed Gleevec -On admit, Hgb 4.8, s/p 3 units, Hb 7.9 today-appropriate response -Low iron sat with low normal ferritin-iron deficiency. IV iron ordered -Discussed case with GI [facility]-agree with capsule endoscopy. Suspicions for HHT, chronic AVM's with increased blood loss because of Gleevec? Pt has had GI bleeding, KUMAR and required transfusions on numerous occasions even prior to gleevec. Pending capsule results and GI assessment and recommendations -Continue PPI daily CML -Treated with Gleevec, which has been held intermittently due to concern for intolerance -She was taking this for 3 weeks prior to this admission -Hold Gleevec -Instructed pt to continue to hold Gleevec until [facility] f/u next week. Due to increased risk for bleeding with Gleevec, may need to consider changing treatment. Will discuss further at upcoming appt
[2024-02-05] MEDS: MAGNESIUM CITRATE 296 ML BOTTLE PO ONE (17:56)
[2024-02-06] MEDS: SIMETHICONE 40 MG/0.6 ML DROPS 2,000 MG/30 ML BOTTLE PO ONE (07:49)
[2024-02-06 08:08] VITALS: RESP 16
[2024-02-06 10:53] LABS: Anisocytosis Moderate; HCT 28.2 % (34.0-46.0); Hypochromasia Marked; MCH 26.9 pg (25.0-35.0); MCHC 29.6 g/dL (31.0-37.0); MCV 90.8 fL (80.0-100.0); Macrocytosis Slight; Mean Platelet Volume 7.8; Poikilocytosis Moderate; RDW 20.8 % (11.5-15.5)
[2024-02-06 11:13] LABS: HGB 8.3 gm/dL (11.4-16.0)
[2024-02-06 11:14] LABS: Platelet Count 1413 k/uL (150-450)
[2024-02-06 12:44] LABS: Basophils # (M) 0.08 k/uL (0-0.2); Metamyelocytes % 2 %; Myelocytes # (M) 0.08 k/uL (0); Myelocytes % 1 %; Neutrophils % (M) 83 %; Nucleated Red Blood Cells 2 /100 WBC (0-0); Total Cells Counted 200
[2024-02-06 12:45] LABS: Eosinophils # (M) 0.15 k/uL (0-0.7); Lymphocytes # (M) 0.69 k/uL (1.0-4.8); Metamyelocytes # (M) 0.15 k/uL (0); Monocytes # (M) 0.31 k/uL (0-1.0); Neutrophils # (M) 6.39 k/uL (1.3-7.7); Spherocytes Present; Stomatocytes Present; Target Cells Present; WBC 7.7 k/uL (3.8-10.6)
[2024-02-06 12:47] LABS: Poikilocytosis (M) Present; RBC Fragments Present; Tear Drop Cells Present
[2024-02-06 13:00] VITALS: BP 102/63; PULSE 70; TEMP 98.1
--- NOTE | 2024-02-06 15:21 | P.PN ---
Subjective Progress Note Date: 02/06/24 Principal diagnosis: Anemia Pleasant 63-year-old female who presented to the emergency department yesterday with complaints of weakness, lightheaded and dizziness. She was concerned with low hemoglobin. Her initial blood work showed a hemoglobin of 4.8. Gastroenterology was consulted for anemia. She has a history of CML diagnosed about a year ago with chronic anemia and known iron deficiency anemia who requires parental iron infusions as needed. She has had about 6 or 7 blood transfusions in the past year. She has been on Gleevec for her CML and was discontinued during her last hospitalization for low hemoglobin and iron deficiency anemia. 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 States she followed up with Dr. Ramon and he resumed her Gleevec. 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 Driver. She has had multiple workup for anemia including most recent upper endoscopy 06/11/[address] Alexis with findings of mild gastritis with no active bleeding. 12/29/[address] Alexis with findings of gastritis, previous to that in August 2022 EGD and colonoscopy with Dr. Alexis with findings of diverticulosis external hemorrhoids and EGD with findings of hemorrhagic gastritis with no active bleeding. In May 2022 finding of pyloric channel ulcer 2 to 3 mm with no active bleeding but thought to be the source of GI bleed. She denies any blood in her stool or black stool. States she does get some stomach pains and decreased appetite which she thinks secondary to her medication. She was seen by hematology this morning and they again are stopping her Gleevec. She is status post 2 units of blood hemoglobin 6.7 02/05/2024 Patient seen and examined today as a follow-up. She received 2 units of blood yesterday. Repeat hemoglobin today 7.9. She continues to deny any blood in her stool or black stool. Does have a little bit of abdominal pain which she states is chronic. Was seen by hematology this morning who recommends small bowel capsule endoscopy. They are considering hereditary hemorrhagic telangiectasia. 924 Patient seen and examined today as a follow-up. No acute changes through the night. No reported blood in her stool or black stool. Patient states they started small bowel capsule endoscopy study at 730 this morning. Hemoglobin stable at 8.3. Objective - Vital Signs Vital signs: Vital Signs Temp 97.9 F 02/06/24 07:22 Pulse 77 02/06/24 07:22 Resp 16 02/06/24 07:22 BP 112/75 02/06/24 07:22 Pulse Ox 100 02/06/24 07:22 FiO2 Intake & Output 02/05/24 02/06/24 02/06/24 18:59 06:59 18:59 Intake Total 700 780 Balance 700 780 Weight 45 kg 44.461 kg Intake: Intake, IV Titration 100 Amount Sodium Ferric Gluconat- 100 Sucrose 125 mg In Sodium Chloride 0.9% 100 ml @ 100 mls/hr IVPB DAILY [facility] Rx#:[id number] Oral 600 780 Other: Voiding Method Toilet Toilet - Exam General appearance: The patient is alert, oriented, appears in no acute distress. HET: Head is normocephalic and atraumatic. Conjunctiva pink. Sclera anicteric. Neck: Supple without lymphadenopathy. Abdomen: Soft, nontender, nondistended with bowel sounds. No guarding or rigidity. Extremities: Normal skin color and turgor. No pedal edema Skin: No rashes, no jaundice Neurological: No focal deficits. Alert and oriented. - Labs CBC & Chem 7: 02/06/24 10:18 02/05/24 05:12 Assessment and Plan (1) Anemia Narrative/Plan: 63-year-old female seen on Gleevec with a history of iron deficiency anemia seen multiple times by general surgery and gastroenterology for workup of GI bl eeds. No active bleeding ever noted in her workup. Last upper endoscopy was in December of this year with findings of 3 scattered AVMs without any active bleeding status post gold probe ablation. Patient has resumed her Gleevec for her CML which again following resuming medication ends up in the hospital with significant anemia. Small bowel capsule endoscopy started this morning as recommended by hematology. Study will be completed later this afternoon. She can follow-up with gastroenterology for results. Current Visit: Yes Status: Acute Priority: High Code(s): D64.9 - ANEMIA, UNSPECIFIED SNOMED Code(s): 689353177 (2) Chronic myeloid leukemia (CML), BCR/ABL-positive Narrative/Plan: Oncology following Current Visit: Yes Status: Chronic Priority: High Code(s): C92.10 - CHRONIC MYELOID LEUK, BCR/ABL-POSITIVE, NOT ACHIEVE REMIS SNOMED Code(s): 85829146 (3) Thrombocytosis Current Visit: Yes Status: Chronic Priority: Medium Code(s): D75.839 - THROMBOCYTOSIS, UNSPECIFIED SNOMED Code(s): 1529210 Plan: 1. Continue symptomatic and supportive care 2. IV iron as ordered 3. Daily CBC, transfuse for hemoglobin less than 7 4. Protonix 40 mg daily for GI prophylaxis 5. Gleevec on hold 6. Patient undergoing small bowel video capsule endoscopy. Can be discharge when study is completed and follow-up in the office for results 7. Continue outpatient follow-up with oncology Thank you for this consultation. Dr. Salo Rehman I agree with the dictator's note, documented as a scribe by Zoey Albert.
== END 2024-02-06 18:34 | disposition home or self-care (01) | DRG 841 ==
LOC: EC 16:13 → 3SCARD 17:13 → 5NMEDONC 02-04 13:34
PROVIDERS: ADMIT Family Medicine; ATTEND Family Medicine
PROC: 30233N1 Transfusion of Nonautologous Red Blood Cells into Peripheral Vein, Percutaneous Approach (ICD-10-PCS; principal; 2024-02-03)
DX: C92.10 Chronic myeloid leukemia, BCR/ABL-positive, not having achieved remission (principal); E44.0 Moderate protein-calorie malnutrition; Z68.1 Body mass index [BMI] 19.9 or less, adult; D50.9 Iron deficiency anemia, unspecified; F41.9 Anxiety disorder, unspecified; F32.A Depression, unspecified; I10 Essential (primary) hypertension; J44.9 Chronic obstructive pulmonary disease, unspecified; G89.29 Other chronic pain; I73.00 Raynaud's syndrome without gangrene; K21.9 Gastro-esophageal reflux disease without esophagitis; M06.9 Rheumatoid arthritis, unspecified; M50.223 Other cervical disc displacement at C6-C7 level; D47.3 Essential (hemorrhagic) thrombocythemia; K31.819 Angiodysplasia of stomach and duodenum without bleeding; F17.200 Nicotine dependence, unspecified, uncomplicated; D75.838 Other thrombocytosis; Z79.82 Long term (current) use of aspirin; Z79.899 Other long term (current) drug therapy; Z87.11 Personal history of peptic ulcer disease
CPT/HCPCS: 36415; 36430; 80053; 82728; 83540; 83550; 83690; 83735; 84484; 85025; 85027; 85730; 86850; 86900; 86901; 86920; 91110; 93005; 96361; 96365; 96375; 96376; 99285

== ENCOUNTER 2024-02-22 13:50 | Emergency (ER) | payer MEDICARE, OTHER ==
--- NOTE | 2024-02-22 14:22 | ED ---
Abdominal Pain HPI - General Source: patient, RN notes reviewed Mode of arrival: ambulatory Limitations: no limitations <Mary Anne Harrison - Last Filed: 02/22/24 14:21> - General Source: patient, RN notes reviewed, old records reviewed Mode of arrival: ambulatory Limitations: no limitations - History of Present Illness MD Complaint: abdominal pain -: days(s) Location: bilateral flank Radiation: RLQ, suprapubic Severity: moderate Severity scale (1-10): 7 Quality: sharp Consistency: constant Improves With: nothing Worsens With: nothing Associated Symptoms: denies other symptoms Treatments Prior to Arrival: other <Costa Guadarrama - Last Filed: 02/22/24 16:24> - General Stated Complaint: Bowel infection, sciatic nerve comp Time Seen by Provider: 02/22/24 14:21 - History of Present Illness Initial Comments: Quick note: 63-year-old female presenting to the ER with a chief complaint of abdominal pain. She states for the past week she has been endorsing generalized abdominal pain and diarrhea. She states last night her diarrhea was malodorous. She endorses nausea especially with food. No known fevers. Patient has a history of CML and multiple hernia repairs. Surgeries completed by . (Mary Anne Harrison) This is a 63-year-old female to ER for evaluation of possible abdominal infection, patient was told by primary care that her pain and belly pain back pain may have been caused by infection so she presents for further evaluation of that possibility. Patient is just complaining of abdominal pain and sciatic pain here in the ER for both chronic issues (Costa Guadarrama) - Related Data Home Medications Medication Instructions Recorded Confirmed Gabapentin 800 mg PO QID 05/01/14 02/03/24 Topiramate 100 mg PO BID 05/01/14 02/03/24 HYDROcodone/APAP 7.5-325MG [[place] 1 tab PO QID 03/11/16 02/03/24 7.5-325] Baclofen [Lioresal] 20 mg PO HS 07/02/17 02/03/24 Sertraline [Zoloft] 50 mg PO DAILY 07/02/17 02/03/24 buPROPion XL [Wellbutrin XL] 300 mg PO DAILY 07/02/17 02/03/24 Multivit with Calcium,Iron,Min 1 tab PO DAILY 10/21/19 02/03/24 [Women's Multivitamin] Spironolactone [Aldactone] 25 mg PO DAILY 12/21/21 02/03/24 Aspirin [Adult Low Dose Aspirin EC] 81 mg PO DAILY 06/07/22 02/03/24 Clindamycin Phosphate 1 applic TOPICAL BID 01/16/23 02/03/24 Tretinoin [Tretinoin 0.025%] 1 applic TOPICAL HS 01/16/23 02/03/24 Albuterol Inhaler [Ventolin Hfa 1 puff INHALATION RT-Q6H PRN 11/05/23 02/03/24 Inhaler] Ondansetron [Zofran] 4 mg PO DAILY PRN 12/26/23 02/03/24 hydrOXYzine HCL [Atarax] 25 mg PO HS 12/26/23 02/03/24 Pantoprazole Sodium [Protonix] 20 mg PO DAILY 02/03/24 02/03/24 Previous Rx's Medication Instructions Recorded Omeprazole [PriLOSEC] 20 mg PO AC-BRKFST #90 cap 06/09/22 polyethylene glycoL 3350 [Miralax] 17 gm PO BID packet 01/09/24 Allergies Allergy/AdvReac Type Severity Reaction Status Date / Time metronidazole [From Flagyl] Allergy Itching, Verified 02/03/24 18:36 BURNING OF SKIN Review of Systems ROS Other: All systems not noted in ROS Statement are negative. <Mary Anne Harrison - Last Filed: 02/22/24 14:21> ROS Other: All systems not noted in ROS Statement are negative. <Costa Guadarrama - Last Filed: 02/22/24 16:24> ROS Statement: Those systems with pertinent positive or pertinent negative responses have been documented in the HPI. Past Medical History Past Medical History: Cancer, COPD, GERD/Reflux, Pneumonia, Rheumatoid Arthritis (RA) Additional Past Medical History / Comment(s): IP ADMISSION FORGASTRIC ULCER IN MAY 2022 WITH HIGH PLATELET & WHITE COUNT THROMBYTOSIS- (SEES DR REBOLLEDO). COPD, leukoplakia of the vocal cords, chronic shoulder back and neck pain, acid reflux, depression, raynaud's syndrome. takes aldactone for hair loss. CML History of Any Multi-Drug Resistant Organisms: MRSA Date of last positivie culture/infection: 05/03/19 MDRO Source:: MRSA FACE Past Surgical History: Back Surgery, Cholecystectomy, Hernia Repair, Orthopedic Surgery, Tonsillectomy Additional Past Surgical History / Comment(s): arthroscopic shoulder, vocal cord scraping, dariana fundoplasty, CERVICAL FUSSION, recent EGD, colonoscopy. VENTRAL HERNIA. Past Anesthesia/Blood Transfusion Reactions: Blood Transfusion Reaction Additional Past Anesthesia/Blood Transfusion Reaction / Comment(s): TRANSFUSIONS WITH GASTRIC ULCER, no previous reactions Past Psychological History: Anxiety, Depression Smoking Status: Current every day smoker Past Alcohol Use History: None Reported Past Drug Use History: None Reported - Past Family History Mother History Unknown: Yes Family Medical History: Cancer Additional Family Medical History / Comment(s): Mom from lung cancer . Father Family Medical History: Unable to Obtain Additional Family Medical History / Comment(s): father passed of massive heart attack. <Mary Anne Harrison - Last Filed: 02/22/24 14:21> General Exam <Mary Anne Harrison - Last Filed: 02/22/24 14:21> General appearance: alert, in no apparent distress Head exam: Present: atraumatic, normocephalic, normal inspection Eye exam: Present: normal appearance, PERRL, EOMI. Absent: scleral icterus, conjunctival injection, periorbital swelling ENT exam: Present: normal exam, mucous membranes moist Neck exam: Present: normal inspection. Absent: tenderness, meningismus, lymphadenopathy Respiratory exam: Present: normal lung sounds bilaterally. Absent: respiratory distress, wheezes, rales, rhonchi, stridor Cardiovascular Exam: Present: regular rate, normal rhythm, normal heart sounds. Absent: systolic murmur, diastolic murmur, rubs, gallop, clicks GI/Abdominal exam: Present: soft, normal bowel sounds. Absent: distended, tenderness, guarding, rebound, rigid Extremities exam: Present: normal inspection, full ROM, normal capillary refill. Absent: tenderness, pedal edema, joint swelling, calf tenderness Back exam: Present: normal inspection Neurological exam: Present: alert, oriented X3, CN II-XII intact Psychiatric exam: Present: normal affect, normal mood Skin exam: Present: warm, dry, intact, normal color. Absent: rash <Costa Guadarrama - Last Filed: 02/22/24 16:24> - General Exam Comments Initial Comments: Visual Physical Exam Vital signs reviewed General: Well-appearing, nontoxic, no acute distress. Head: Normocephalic, atraumatic Eyes: PERRLA, EOMI ENT: Airway patent Chest: Nonlabored breathing Skin: No visual rash, normal skin tone Neuro: Alert and oriented 3 Musculoskeletal: No gross abnormalities (Mary Anne Harrison) Course <Costa Guadarrama - Last Filed: 02/22/24 16:24> Vital Signs 02/22/24 14:24 Temperature 98.4 F Pulse Rate 88 Respiratory 20 Rate Blood Pressure 130/81 O2 Sat by Pulse 98 Oximetry - Reevaluation(s) Reevaluation #1: 02/22/24 16:22 Medical records reviewed (Costa Guadarrama) Reevaluation #2: 02/22/24 16:23 Patient symptoms unchanged (Costa Guadarrama) Reevaluation #3: 02/22/24 16:23 Patient informed of results and questions answered (Costa Guadarrama) Reevaluation #4: Was pt. sent in by a medical professional or institution (, PA, CROWN ATTACHER, urgent care, hospital, or [facility]...) When possible be specific @ -no Did you speak to anyone other than the patient for history (EMS, parent, family, police, friend...)? What history was obtained from this source @ -no Did you review nursing and triage notes (agree or disagree)? Why? @ -agree Are old charts reviewed (outside hosp., previous admission, EMS record, old EKG, old radiological studies, urgent care reports/EKG's, [facility] records)? Report findings @ -yes Differential Diagnosis (chest pain, altered mental status, abdominal pain women, abdominal pain men, vaginal bleeding, weakness, fever, dyspnea, syncope, headache, dizziness, GI bleed, back pain, seizure, CVA, palpatations, mental health, musculoskeletal)? @ -prior EKG interpreted by me (3pts min.). @ -yes X-rays interpreted by me (1pt min.). @ -yes negative for acute disease CT interpreted by me (1pt min.). @ -no U/S interpreted by me (1pt. min.). @ -no What testing was considered but not performed or refused? (CT, X-rays, U/S, labs)? Why? @ -none What meds were considered but not given or refused? Why? @ -none Did you discuss the management of the patient with other professionals (professionals i.e. , PA, CROWN ATTACHER, lab, RT, psych nurse, renal social worker, director of pupil personnel program, teacher, digital controls technical officer, manager of case management)? Give summary @ -no Was smoking cessation discussed for >3mins.? @ -no Was critical care preformed (if so, how long)? @ -no Were there social determinants of health that impacted care today? How? (Homelessness, low income, unemployed, alcoholism, drug addiction, transportation, low edu. Level, literacy, decrease access to med. care, detention, rehab)? @ -none Was there de-escalation of care discussed even if they declined (Discuss DNR or withdrawal of care, Hospice)? DNR status @ -no What co-morbidities impacted this encounter? (DM, HTN, Smoking, COPD, CAD, Ca ncer, CVA, ARF, Chemo, Hep., AIDS, mental health diagnosis, sleep apnea, morbid obesity)? @ -none Was patient admitted / discharged? Hospital course, mention meds given and route, prescriptions, significant lab abnormalities, going to OR and other pertinent info. @ - Undiagnosed new problem with uncertain prognosis? @ -no Drug Therapy requiring intensive monitoring for toxicity (Heparin, Nitro, Insulin, Cardizem)? @ -no Were any procedures done? @ -no Diagnosis/symptom? @ - Acute, or Chronic, or Acute on Chronic? @ -Acute Uncomplicated (without systemic symptoms) or Complicated (systemic symptoms)? @ -Complicated Side effects of treatment? @ -no Exacerbation, Progression, or Severe Exacerbation? @ -exacerbation Poses a threat to life or bodily function? How? (Chest pain, USA, CA, pneumonia, PE, COPD, DKA, ARF, appy, cholecystitis, CVA, Diverticulitis, Homicidal, Suicidal, threat to staff... and all critical care pts) @ -yes (Costa Guadarrama) Reevaluation #5: Differential Abdominal Pain Women: Appendicitis, Cholecystitis, diverticulosis, ischemic bowel, pancreatitis, hepatitis, UTI, gastroenteritis, AAA, incarcerated hernia, bowel obstruction, constipation, inflammatory bowel, hepatitis, peptic ulcer disease, splenic infarction, perforated viscus, vulvitis, ovarian torsion, PID, kidney stone, placenta abruption, this is not meant to be an all-inclusive list (Costa Guadarrama) Medical Decision Making <Mary Anne Harrison - Last Filed: 02/22/24 14:21> - Lab Data Result diagrams: 02/22/24 15:25 - Radiology Data Radiology results: report reviewed (CT abdomen pelvis is negative for acute disease), image reviewed <Costa Guadarrama - Last Filed: 02/22/24 16:24> - Medical Decision Making I performed the quick note portion of this chart. Electronically signed by Mary Anne Harrison PA-C (Mary Anne Harrison) 63 female for chronic back pain and sciatica pain and abdominal pain for concern of infection. Patient has normal CBC and CT abdomen pelvis here in the ER with normal CMP. Patient can be discharged (Costa Guadarrama) - Lab Data Lab Results 02/22/24 02/22/24 Range/Units 15:25 15:25 Sodium 139 (137-145) mmol/L Potassium 4.4 (3.5-5.1) mmol/L Chloride 106 (98-107) mmol/L Carbon Dioxide 25 (22-30) mmol/L Anion Gap 8 mmol/L BUN 12 (7-17) mg/dL Creatinine 0.93 (0.52-1.04) mg/dL Est GFR (CKD-EPI)AfAm 77 (>60 ml/min/1.73 sqM) Est GFR (CKD-EPI)NonAf 67 (>60 ml/min/1.73 sqM) Glucose 83 (74-99) mg/dL Plasma Lactic Acid Avel 0.9 (0.7-2.0) mmol/L Calcium 10.0 (8.4-10.2) mg/dL Phosphorus 4.3 (2.5-4.5) mg/dL Magnesium 1.8 (1.6-2.3) mg/dL Total Bilirubin 0.4 (0.2-1.3) mg/dL AST 48 H (14-36) U/L ALT 22 (4-34) U/L Alkaline Phosphatase 78 (38-126) U/L Total Protein 7.4 (6.3-8.2) g/dL Albumin 4.7 (3.5-5.0) g/dL Amylase 55 (30-110) U/L Lipase 139 (23-300) U/L Disposition <Mary Anne Harrison - Last Filed: 02/22/24 14:21> Is patient prescribed a controlled substance at d/c from ED?: No Time of Disposition: 16:30 <Costa Guadarrama - Last Filed: 02/22/24 16:24> Clinical Impression: Abdominal pain, Anemia, Sciatica Disposition: HOME SELF-CARE Condition: Good Instructions (If sedation given, give patient instructions): Abdominal Pain (ED), Sciatica (ED) Referrals: Katja Jefferson DO [Primary Care Provider] - 1-2 days
--- NOTE | 2024-02-22 15:42 | CT ---
EXAMINATION TYPE: CT abdomen pelvis wo con DATE OF EXAM: 02/22/2024 COMPARISON: 03/10/2023 CLINICAL INDICATION: Female, 63 years old with history of pain; PHH, poss bowel infection TECHNIQUE: CT scan of the abdomen and pelvis is performed without oral or IV contrast. CT DLP: 260.5 mGycm Automated exposure control for dose reduction was used. FINDINGS: Within the limitations of a non-contrast study, the following observations are made. The lungs are clear. There is surgical absence of the gallbladder. There is no biliary ductal dilatation. There is no organomegaly of the liver, pancreas, spleen or adrenal glands. There are 2 stable left renal calcifications and a stable 5 mm right renal calcification. There is no hydronephrosis. The caliber of the abdominal aorta is normal and there is no retroperitoneal adenopathy or hemorrhage . The bowel loops are normal in caliber is no evidence of obstruction. No inflammatory changes are iden tified in the mesentery and there is no free intraperitoneal air or fluid. There is no pelvic mass, free fluid, abscess or adenopathy. There is mild diverticulosis of the colon without CT evidence of diverticulitis. The osseous structures and soft tissues are unremarkable. IMPRESSION: 1. No acute changes within the abdomen or pelvis but study is limited due to lack of oral or IV contr ast. 2. Stable bilateral nonobstructing renal calcifications. [facility], , 02/22/2024 3:40 PM
[2024-02-22 15:51] LABS: ALT 22 U/L (4-34); AST 48 U/L (14-36); African American GFR (CKD) 77 (>60 ml/min/1.73 sqM); Albumin 4.7 g/dL (3.5-5.0); Alkaline Phosphatase 78 U/L (38-126); Amylase 55 U/L (30-110); Anion Gap 8 mmol/L; Blood Urea Nitrogen 12 mg/dL (7-17); Carbon Dioxide 25 mmol/L (22-30); Chloride 106 mmol/L (98-107); Glucose 83 mg/dL (74-99); Lipase 139 U/L (23-300); Magnesium 1.8 mg/dL (1.6-2.3); Non-African American GFR(CKD) 67 (>60 ml/min/1.73 sqM); Phosphorus 4.3 mg/dL (2.5-4.5); Potassium 4.4 mmol/L (3.5-5.1); Sodium 139 mmol/L (137-145); Total Bilirubin 0.4 mg/dL (0.2-1.3); Total Protein 7.4 g/dL (6.3-8.2)
[2024-02-22 15:55] LABS: Anisocytosis Marked; HCT 38.5 % (34.0-46.0); Hypochromasia Marked; MCH 26.3 pg (25.0-35.0); MCHC 28.5 g/dL (31.0-37.0); MCV 92.3 fL (80.0-100.0); Macrocytosis Slight; Mean Platelet Volume 8.5; Microcytosis Slight; Poikilocytosis Slight; RBC 4.17 m/uL (3.80-5.40); RDW 24.1 % (11.5-15.5)
[2024-02-22 16:50] VITALS: RESP 18; TEMP 98.1
[2024-02-22 17:08] LABS: Band Neutrophils % 8 %; Metamyelocytes % 4 %; Myelocytes % 6 %; Neutrophils % (M) 66 %; Nucleated Red Blood Cells 2 /100 WBC (0-0); Total Cells Counted 200
[2024-02-22 17:09] LABS: Basophils # (M) 0.53 k/uL (0-0.2); Eosinophils # (M) 0.53 k/uL (0-0.7); Lymphocytes # (M) 1.06 k/uL (1.0-4.8); Metamyelocytes # (M) 2.12 k/uL (0); Monocytes # (M) 7.42 k/uL (0-1.0); Myelocytes # (M) 3.18 k/uL (0); Platelet Count 2015 k/uL (150-450)
[2024-02-22] MEDS: dexAMETHasone 2 MG TAB PO STA (17:09)
[2024-02-22] MEDS: SODIUM CHLORIDE 0.9% 1,000 ML IV STA (17:09)
[2024-02-22] MEDS: IBUPROFEN 600 MG TAB PO STA (17:10)
[2024-02-22] MEDS: HYDROmorphone 1 MG/ML 1 ML SYRINGE IM STA (17:11)
[2024-02-22 17:15] LABS: Polychromasia Present
[2024-02-22 17:29] LABS: Appearance,Urine Clear (Clear); Bilirubin,Urine Negative (Negative); Blood,Urine Negative (Negative); Color,Urine Colorless; Glucose,Urine (UA) Negative (Negative); Ketones,Urine Negative (Negative); Leukocyte Esterase,Urine Negative (Negative); Nitrite,Urine Negative (Negative); Protein,Urine Negative (Negative); Specific Gravity,Urine 1.008 (1.001-1.035); Urobilinogen,Urine <2.0 mg/dL (<2.0)
[2024-02-22] MEDS: traMADol 50 MG STARTER PACK 3 TAB BTL PO STA (18:06)
[2024-02-22] MEDS: IBUPROFEN 600 MG STARTER PACK 4 TAB BTL PO STA (18:06)
[2024-02-22] MEDS: ONDANSETRON 4 MG ODT STARTER PACK 2 TAB BTL PO STA (18:07)
[2024-02-22 18:25] VITALS: BP 125/74; PULSE 79
== END 2024-02-22 18:25 | disposition home or self-care (01) ==
LOC: EC 13:50
CPT/HCPCS: 36415; 74176; 80053; 81003; 82150; 83605; 83690; 83735; 84100; 85025; 96372; 99284

== ENCOUNTER 2024-04-16 14:21 | Observation (INO) | payer MEDICARE, OTHER ==
[2024-04-16 14:31] VITALS: TEMP 98
--- NOTE | 2024-04-16 14:37 | ED ---
SOB HPI - General Chief Complaint: Shortness of Breath Stated Complaint: SOB,Abd pain Time Seen by Provider: 04/16/24 14:32 Source: patient, RN notes reviewed, old records reviewed Mode of arrival: ambulatory Limitations: no limitations - History of Present Illness Initial Comments: This is a 63-year-old female to the ER for evaluation of severe shortness of breath shortness of breath and dyspnea weakness not feeling well, pain severe pain left-sided chest pain back pain abdominal pain. Chronic pain MD Complaint: shortness of breath, cough, chest pain -: days(s) Severity: severe Severity scale (1-10): 10 Consistency: constant Improves With: nothing Worsens With: nothing Associated Symptoms: chest pain, pain with inspiration, parasthesias, nause a/vomiting, abdominal pain Treatments Prior to Arrival: none - Related Data Home Medications Medication Instructions Recorded Confirmed Gabapentin 800 mg PO QID 05/01/14 04/16/24 Topiramate 100 mg PO BID 05/01/14 04/16/24 HYDROcodone/APAP 7.5-325MG [Stanley 1 tab PO QID 03/11/16 04/16/24 7.5-325] Baclofen [Lioresal] 20 mg PO HS 07/02/17 04/16/24 Sertraline [Zoloft] 50 mg PO DAILY 07/02/17 04/16/24 buPROPion XL [Wellbutrin XL] 300 mg PO DAILY 07/02/17 04/16/24 Multivit with Calcium,Iron,Min 1 tab PO DAILY 10/21/19 04/16/24 [Women's Multivitamin] Spironolactone [Aldactone] 25 mg PO DAILY 12/21/21 04/16/24 Aspirin [Adult Low Dose Aspirin EC] 81 mg PO DAILY 06/07/22 04/16/24 Clindamycin Phosphate 1 applic TOPICAL BID 01/16/23 04/16/24 Tretinoin [Tretinoin 0.025%] 1 applic TOPICAL HS 01/16/23 04/16/24 Albuterol Inhaler [Ventolin Hfa 1 puff INHALATION RT-Q6H PRN 11/05/23 04/16/24 Inhaler] Ondansetron [Zofran] 4 mg PO Q8H PRN 12/26/23 04/16/24 Alendronate Sodium [Fosamax] 70 mg PO PARSONS 04/16/24 04/16/24 Bosutinib [Bosulif] 200 mg PO DAILY 04/16/24 04/16/24 polyethylene glycoL 3350 [Miralax] 17 gm PO BID PRN 04/16/24 04/16/24 Previous Rx's Medication Instructions Recorded Omeprazole [PriLOSEC] 20 mg PO AC-BRKFST #90 cap 06/09/22 Allergies Allergy/AdvReac Type Severity Reaction Status Date / Time metronidazole [From Flagyl] Allergy Itching, Verified 04/16/24 14:31 BURNING OF SKIN Review of Systems ROS Statement: Those systems with pertinent positive or pertinent negative responses have been documented in the HPI. ROS Other: All systems not noted in ROS Statement are negative. Past Medical History Past Medical History: Cancer, COPD, GERD/Reflux, Pneumonia, Rheumatoid Arthritis (RA) Additional Past Medical History / Comment(s): IP ADMISSION FORGASTRIC ULCER IN MAY 2022 WITH HIGH PLATELET & WHITE COUNT THROMBYTOSIS- (SEES DR REBOLLEDO). COPD, leukoplakia of the vocal cords, chronic shoulder back and neck pain, acid reflux, depression, raynaud's syndrome. takes aldactone for hair loss. CML History of Any Multi-Drug Resistant Organisms: MRSA Date of last positivie culture/infection: 05/03/19 MDRO Source:: MRSA FACE Past Surgical History: Back Surgery, Cholecystectomy, Hernia Repair, Orthopedic Surgery, Tonsillectomy Additional Past Surgical History / Comment(s): arthroscopic shoulder, vocal cord scraping, dariana fundoplasty, CERVICAL FUSSION, recent EGD, colonoscopy. VENTRAL HERNIA. Past Anesthesia/Blood Transfusion Reactions: Blood Transfusion Reaction Additional Past Anesthesia/Blood Transfusion Reaction / Comment(s): TRANSFUSIONS WITH GASTRIC ULCER, no previous reactions Past Psychological History: Anxiety, Depression Smoking Status: Current every day smoker - Past Family History Mother History Unknown: Yes Family Medical History: Cancer Additional Family Medical History / Comment(s): Mom from [place]. Father Family Medical History: Unable to Obtain Additional Family Medical History / Comment(s): father passed of massive heart attack. General Exam Limitations: no limitations General appearance: alert, in no apparent distress Head exam: Present: atraumatic, normocephalic, normal inspection Eye exam: Present: normal appearance, PERRL, EOMI. Absent: scleral icterus, conjunctival injection, periorbital swelling ENT exam: Present: normal exam, mucous membranes moist Neck exam: Present: normal inspection. Absent: tenderness, meningismus, lymphadenopathy Respiratory exam: Present: respiratory distress, wheezes. Absent: rales, rhonchi, stridor Cardiovascular Exam: Present: regular rate, normal rhythm, normal heart sounds. Absent: systolic murmur, diastolic murmur, rubs, gallop, clicks GI/Abdominal exam: Present: soft, normal bowel sounds. Absent: distended, tenderness, guarding, rebound, rigid Extremities exam: Present: normal inspection, full ROM, normal capillary refill. Absent: tenderness, pedal edema, joint swelling, calf tenderness Back exam: Present: normal inspection Neurological exam: Present: alert, oriented X3, CN II-XII intact Psychiatric exam: Present: normal affect, normal mood Skin exam: Present: warm, dry, intact, normal color. Absent: rash Course Vital Signs 04/16/24 04/16/24 04/16/24 14:27 15:48 15:59 Temperature 98.0 F Pulse Rate 87 82 86 Respiratory 16 18 18 Rate Blood Pressure 125/76 121/81 O2 Sat by Pulse 95 100 Oximetry 04/16/24 04/16/24 16:07 18:05 Temperature Pulse Rate 72 78 Respiratory 18 20 Rate Blood Pressure 112/80 O2 Sat by Pulse 98 Oximetry - Reevaluation(s) Reevaluation #1: 04/16/24 17:12 Records reviewed Reevaluation #2: 04/16/24 17:12 Patient symptoms improving Reevaluation #3: 04/16/24 17:12 Patient informed of results and questions answered Reevaluation #4: Was pt. sent in by a medical professional or institution (, PA, [employer], urgent care, hospital, or group home...) When possible be specific @ -no Did you speak to anyone other than the patient for history (EMS, parent, family, police, friend...)? What history was obtained from this source @ -no Did you review nursing and triage notes (agree or disagree)? Why? @ -agree Are old charts reviewed (outside hosp., previous admission, EMS record, old EKG, old radiological studies, urgent care reports/EKG's, group home records)? Report findings @ -yes Differential Diagnosis (chest pain, altered mental status, abdominal pain women, abdominal pain men, vaginal bleeding, weakness, fever, dyspnea, syncope, headache, dizziness, GI bleed, back pain, seizure, CVA, palpatations, mental health, musculoskeletal)? @ -prior EKG interpreted by me (3pts min.). @ -yes X-rays interpreted by me (1pt min.). @ -yes negative for acute disease CT interpreted by me (1pt min.). @ -no U/S interpreted by me (1pt. min.). @ -no What testing was considered but not performed or refused? (CT, X-rays, U/S, labs)? Why? @ -none What meds were considered but not given or refused? Why? @ -none Did you discuss the management of the patient with other professionals (professionals i.e. , PA, [employer], lab, RT, psych nurse, high school social science teacher, medical technologist clinical, teacher, housing management officer, case planner)? Give summary @ -no Was smoking cessation discussed for >3mins.? @ -no Was critical care preformed (if so, how long)? @ -no Were there social determinants of health that impacted care today? How? (Homelessness, low income, unemployed, alcoholism, drug addiction, transportation, low edu. Level, literacy, decrease access to med. care, group home, rehab)? @ -none Was there de-escalation of care discussed even if they declined (Discuss DNR or withdrawal of care, Hospice)? DNR status @ -no What co-morbidities impacted this encounter? (DM, HTN, Smoking, COPD, CAD, Cancer, CVA, ARF, Chemo, Hep., AIDS, mental health diagnosis, sleep apnea, morbid obesity)? @ -none Was patient admitted / discharged? Hospital course, mention meds given and route, prescriptions, significant lab abnormalities, going to OR and other pertinent info. @ - Undiagnosed new problem with uncertain prognosis? @ -no Drug Therapy requiring intensive monitoring for toxicity (Heparin, Nitro, Insulin, Cardizem)? @ -no Were any procedures done? @ -no Diagnosis/symptom? @ - Acute, or Chronic, or Acute on Chronic? @ -Acute Uncomplicated (without systemic symptoms) or Complicated (systemic symptoms)? @ -Complicated Side effects of treatment? @ -no Exacerbation, Progression, or Severe Exacerbation? @ -exacerbation Poses a threat to life or bodily function? How? (Chest pain, USA, CT, pneumonia, PE, COPD, DKA, ARF, appy, cholecystitis, CVA, Diverticulitis, Homicidal, Suicidal, threat to staff... and all critical care pts) @ -yes Reevaluation #5: Differential Dyspnea: Coronary syndrome, arrhythmia, tamponade, asthma, COPD, pulmonary embolism, pneumonia, pneumothorax, pulmonary effusion, anaphylaxis, diabetic ketoacidosis, flailed chest, pulmonary contusion, diaphragmatic rupture, anemia, neuromuscular, this is not meant to be an all-inclusive list. Medical Decision Making - Medical Decision Making 63 female to the ER for evaluation patient [facility] for evaluation of back pain chest pain significant history of CML with severe leukostasis and elevated white blood cell count failure patient admitted for hydration and pain control After further speaking with patient regarding admission she is refusing hospital admission and would like to be discharged home - Lab Data Result diagrams: 04/16/24 15:01 04/16/24 15:01 Lab Results 04/16/24 04/16/24 04/16/24 Range/Units 15:01 15:01 15:01 WBC 90.5 H* (3.8-10.6) k/uL RBC 3.71 L (3.80-5.40) m/uL Hgb 10.2 L (11.4-16.0) gm/dL Hct 34.0 (34.0-46.0) % MCV 91.8 (80.0-100.0) fL MCH 27.5 (25.0-35.0) pg MCHC 29.9 L (31.0-37.0) g/dL RDW 27.6 H (11.5-15.5) % Plt Count 1152 H* (150-450) k/uL MPV 8.0 Neutrophils % (Manual) 63 % Band Neuts % (Manual) 5 % Lymphocytes % (Manual) 1 % Monocytes % (Manual) 4 % Eosinophils % (Manual) 3 % Metamyelocytes % 6 % Myelocytes % 19 % Other Cells % 2.5 % Neutrophils # (Manual) 61.50 H (1.3-7.7) k/uL Lymphocytes # (Manual) 0.91 L (1.0-4.8) k/uL Monocytes # (Manual) 3.62 H (0-1.0) k/uL Eosinophils # (Manual) 2.72 H (0-0.7) k/uL Metamyelocytes # (Man) 5.43 H (0) k/uL Myelocytes # (Manual) 17.20 H (0) k/uL Nucleated RBCs 5 H (0-0) /100 WBC Manual Slide Review Performed Toxic Vacuolation Present Large Platelets Present Polychromasia Present Hypochromasia Marked Poikilocytosis Slight Basophilic Stippling Present Anisocytosis Marked Microcytosis Slight Macrocytosis Moderate Target Cells Present PT 11.4 (10.0-12.5) sec INR 1.0 (<1.2) APTT 26.7 (22.0-30.0) sec Sodium 140 (137-145) mmol/L Potassium 4.4 (3.5-5.1) mmol/L Chloride 104 (98-107) mmol/L Carbon Dioxide 29 (22-30) mmol/L Anion Gap 7 mmol/L BUN 11 (7-17) mg/dL Creatinine 0.85 (0.52-1.04) mg/dL Est GFR (CKD-EPI)AfAm 86 (>60 ml/min/1.73 sqM) Est GFR (CKD-EPI)NonAf 75 (>60 ml/min/1.73 sqM) Glucose 81 (74-99) mg/dL Plasma Lactic Acid Avel (0.7-2.0) mmol/L Calcium 9.5 (8.4-10.2) mg/dL Magnesium 1.7 (1.6-2.3) mg/dL Total Bilirubin 0.4 (0.2-1.3) mg/dL AST 47 H (14-36) U/L ALT 26 (4-34) U/L Alkaline Phosphatase 64 (38-126) U/L Troponin I (0.000-0.034) ng/mL NT-Pro-B Natriuret Pep 239 pg/mL Total Protein 7.1 (6.3-8.2) g/dL Albumin 4.4 (3.5-5.0) g/dL 04/16/24 04/16/24 Range/Units 15:01 15:01 WBC (3.8-10.6) k/uL RBC (3.80-5.40) m/uL Hgb (11.4-16.0) gm/dL Hct (34.0-46.0) % MCV (80.0-100.0) fL MCH (25.0-35.0) pg MCHC (31.0-37.0) g/dL RDW (11.5-15.5) % Plt Count (150-450) k/uL MPV Neutrophils % (Manual) % Band Neuts % (Manual) % Lymphocytes % (Manual) % Monocytes % (Manual) % Eosinophils % (Manual) % Metamyelocytes % % Myelocytes % % Other Cells % % Neutrophils # (Manual) (1.3-7.7) k/uL Lymphocytes # (Manual) (1.0-4.8) k/uL Monocytes # (Manual) (0-1.0) k/uL Eosinophils # (Manual) (0-0.7) k/uL Metamyelocytes # (Man) (0) k/uL Myelocytes # (Manual) (0) k/uL Nucleated RBCs (0-0) /100 WBC Manual Slide Review Toxic Vacuolation Large Platelets Polychromasia Hypochromasia Poikilocytosis Basophilic Stippling Anisocytosis Microcytosis Macrocytosis Target Cells PT (10.0-12.5) sec INR (<1.2) APTT (22.0-30.0) sec Sodium (137-145) mmol/L Potassium (3.5-5.1) mmol/L Chloride (98-107) mmol/L Carbon Dioxide (22-30) mmol/L Anion Gap mmol/L BUN (7-17) mg/dL Creatinine (0.52-1.04) mg/dL Est GFR (CKD-EPI)AfAm (>60 ml/min/1.73 sqM) Est GFR (CKD-EPI)NonAf (>60 ml/min/1.73 sqM) Glucose (74-99) mg/dL Plasma Lactic Acid Avel 1.4 (0.7-2.0) mmol/L Calcium (8.4-10.2) mg/dL Magnesium (1.6-2.3) mg/dL Total Bilirubin (0.2-1.3) mg/dL AST (14-36) U/L ALT (4-34) U/L Alkaline Phosphatase (38-126) U/L Troponin I <0.012 (0.000-0.034) ng/mL NT-Pro-B Natriuret Pep pg/mL Total Protein (6.3-8.2) g/dL Albumin (3.5-5.0) g/dL - EKG Data -: EKG Interpreted by Me (EKG is sinus 87 NM 125 QRS 91 QTc 390) - Radiology Data Radiology results: report reviewed (CT chest abdomen pelvis), image reviewed Disposition Clinical Impression: CML (chronic myelocytic leukemia), Chronic myeloid leukemia (CML), BCR/ABL- positive, Chest pain, Abdominal pain, Back pain Disposition: HOME SELF-CARE Condition: Fair Is patient prescribed a controlled substance at d/c from ED?: No Time of Disposition: 18:00
[2024-04-16 15:23] LABS: Anisocytosis Marked; HGB 10.2 gm/dL (11.4-16.0); Hypochromasia Marked; MCH 27.5 pg (25.0-35.0); MCHC 29.9 g/dL (31.0-37.0); MCV 91.8 fL (80.0-100.0); Macrocytosis Moderate; Microcytosis Slight; Poikilocytosis Slight; RBC 3.71 m/uL (3.80-5.40)
[2024-04-16 15:29] LABS: Partial Thromboplastin Time 26.7 sec (22.0-30.0); Prothrombin Time 11.4 sec (10.0-12.5); RDW 27.6 % (11.5-15.5)
[2024-04-16 15:30] LABS: Platelet Count 1152 k/uL (150-450)
[2024-04-16 15:31] LABS: ALT 26 U/L (4-34); AST 47 U/L (14-36); African American GFR (CKD) 86 (>60 ml/min/1.73 sqM); Albumin 4.4 g/dL (3.5-5.0); Alkaline Phosphatase 64 U/L (38-126); Anion Gap 7 mmol/L; Blood Urea Nitrogen 11 mg/dL (7-17); Calcium 9.5 mg/dL (8.4-10.2); Carbon Dioxide 29 mmol/L (22-30); Chloride 104 mmol/L (98-107); Glucose 81 mg/dL (74-99); Magnesium 1.7 mg/dL (1.6-2.3); Non-African American GFR(CKD) 75 (>60 ml/min/1.73 sqM); Potassium 4.4 mmol/L (3.5-5.1); Sodium 140 mmol/L (137-145); Total Bilirubin 0.4 mg/dL (0.2-1.3); Total Protein 7.1 g/dL (6.3-8.2)
[2024-04-16 15:38] LABS: NT-Pro-B-Type Natriuretic Pept 239 pg/mL
[2024-04-16] MEDS: SODIUM CHLORIDE 0.9% 1,000 ML IV STA (15:49)
[2024-04-16] MEDS: PROCHLORPERAZINE INJ 10 MG/2 ML VIAL IVP STA (15:50)
[2024-04-16] MEDS: diphenhydrAMINE 50 MG/ML 1 ML VIAL IVP STA (15:52)
[2024-04-16] MEDS: HYDROmorphone 1 MG/ML 1 ML SYRINGE IVP STA (15:54)
[2024-04-16] MEDS: IPRATROPIUM-ALBUTEROL 3 ML NEB INHALATION STA (15:59)
[2024-04-16 16:03] LABS: Band Neutrophils % 5 %; Metamyelocytes % 6 %; Myelocytes % 19 %; Neutrophils % (M) 63 %; Nucleated Red Blood Cells 5 /100 WBC (0-0); Total Cells Counted 200
[2024-04-16 16:09] LABS: Large Platelets Present; Polychromasia Present; Toxic Vacuolation Present
[2024-04-16 16:11] LABS: Basophilic Stippling Present; Target Cells Present
[2024-04-16 16:20] LABS: Eosinophils # (M) 2.72 k/uL (0-0.7); Lymphocytes # (M) 0.91 k/uL (1.0-4.8); Metamyelocytes # (M) 5.43 k/uL (0); Monocytes # (M) 3.62 k/uL (0-1.0); WBC 90.5 k/uL (3.8-10.6)
[2024-04-16] MEDS ORDERED: ONDANSETRON 4 MG/2 ML VIAL IVP PRN (17:09)
[2024-04-16] MEDS ORDERED: NALOXONE 0.4 MG/ML 1 ML VIAL IV PRN (17:09)
[2024-04-16] MEDS ORDERED: HYDROmorphone 1 MG/ML 1 ML SYRINGE IVP PRN (17:09)
--- NOTE | 2024-04-16 17:09 | CT ---
EXAMINATION TYPE: CT angio chest DATE OF EXAM: 04/16/2024 4:43 PM COMPARISON: 01/09/2024 CLINICAL INDICATION: Female, 63 years old with history of cp; sob TECHNIQUE/CONTRAST: CTA scan of the thorax is performed with IV Contrast, patient injected with 100 mL of Isovue 370, MIP images are created and reviewed these are created on a separate workstation.. CT DLP: COMBINED 670.6 mGycm, Automated exposure control for dose reduction was used. FINDINGS: Lungs/Pleura: No evidence of focal consolidation, pleural effusion or pneumothorax. Airway: Large airways are patent. Heart: Heart is within normal limits for size. Vasculature: There is no evidence for a filling defect within the pulmonary vasculature to suggest ac poarch pulmonary embolism. The pulmonary artery is of normal size. Mediastinum: No gross evidence of adenopathy. Musculoskeletal: Moderate degenerative disc disease changes are present throughout the thoracolumbar spine. Soft Tissues/lymph nodes: Unremarkable. Lower neck: No significant findings. Upper Abdomen: No significant findings. IMPRESSION: 1. No evidence of pulmonary embolism. 2. Mild emphysema Follow up recommendations for incidental pulmonary nodules, if there are any, are per [employer] or [employer]. https://radiopaedia.org/articles/bvemjtmlnf-psdfjom-ilulheikf-aotaxg-oocserocsxgzbfj-7?lang=us [facility], , 04/16/2024 5:07 PM
--- NOTE | 2024-04-16 17:17 | CT ---
EXAMINATION TYPE: CT abdomen pelvis w con DATE OF EXAM: 04/16/2024 4:44 PM COMPARISON: CT abdomen pelvis most recent from 02/22/2024 CLINICAL INDICATION: Female, 63 years old with history of cp; abdominal/back pain TECHNIQUE: Axial CT abdomen pelvis w con;Sagittal and coronal reformats were created on a separate w orkstation. Contrast used:100 mL of Isovue 370 with IV Contrast, (none if empty) Oral contrast used: without Oral Contrast (none if empty) CT DLP: COMBINED 670.6 mGycm, Automated exposure control for dose reduction was used. FINDINGS: LOWER CHEST: Unremarkable ABDOMEN LIVER: Unremarkable GALLBLADDER AND BILE DUCTS: Gallbladder is surgically absent with mild intrahepatic and extra hepatic biliary dilatation likely physiologic and a postcholecystectomy change. No evidence of choledocholit hiasis. PANCREAS: Unremarkable. SPLEEN: Markedly enlarged measuring up to 24 cm. ADRENAL GLANDS: Unremarkable. KIDNEYS AND URETERS: Nonobstructing left renal calculus measuring 3 mm and right renal calculus measu ring 4 mm. PELVIS BLADDER: No evidence for wall thickening or mass given limitations of exam. REPRODUCTIVE: The uterus is surgically absent. ABDOMEN & PELVIS STOMACH AND BOWEL: No evidence of bowel obstruction. Scattered colonic diverticula. PERITONEUM/RETROPERITONEUM: No evidence of pneumoperitoneum or free fluid. VASCULATURE: No evidence of aortic aneurysm. Portal vein is dilated up to 1.7 cm. MUSCULOSKELETAL: No acute osseous abnormalities. Moderate disc degeneration changes are present throu ghout the thoracolumbar spine. LYMPH NODES: No gross evidence for lymphadenopathy. SOFT TISSUE/ABDOMINAL WALL: Unremarkable IMPRESSION: Paucity of intra-abdominal fat limits evaluation. 1. Evidence of portal hypertension with dilation the portal vein and markedly hepatomegaly. 2. Nonobstructing bilateral renal calculi. 3. Colonic diverticulosis. 4. Cholecystectomy changes with suspected physiologic dilation of the biliary system. [facility], , 04/16/2024 5:14 PM
[2024-04-16] MEDS ORDERED: IPRATROPIUM-ALBUTEROL 3 ML NEB INHALATION PRN (17:53)
[2024-04-16] MEDS: methylPREDNISolone SOD SUCCI 125 MG/2 ML VIAL IV STA (18:03)
[2024-04-16] MEDS: SODIUM CHLORIDE 0.9% 1,000 ML IV SCH (18:04)
[2024-04-16 19:35] VITALS: BP 112/80; PULSE 78; RESP 20
[2024-04-17] MEDS ORDERED: methylPREDNISolone SOD SUCCI 125 MG/2 ML VIAL IV SCH
[2024-04-17 08:02] LABS: Other Cells % 2.5 %
[2024-04-17] MEDS ORDERED: PANTOPRAZOLE 40 MG/10 ML VIAL IV SCH (09:00)
== END 2024-04-16 18:20 | disposition home or self-care (01) ==
LOC: EC 14:21 → 5NMEDONC 17:10
PROVIDERS: ADMIT Family Medicine; ATTEND Family Medicine
DX: C92.10 Chronic myeloid leukemia, BCR/ABL-positive, not having achieved remission (principal); J44.9 Chronic obstructive pulmonary disease, unspecified; K21.9 Gastro-esophageal reflux disease without esophagitis; F32.A Depression, unspecified; F41.9 Anxiety disorder, unspecified; F17.200 Nicotine dependence, unspecified, uncomplicated; Z79.899 Other long term (current) drug therapy; Z79.82 Long term (current) use of aspirin; Z79.83 Long term (current) use of bisphosphonates; Z88.1 Allergy status to other antibiotic agents
CPT/HCPCS: 96374; 96375; 99285; 36415; 94640; 93005; 83880; 80053; 83605; 83735; 84484; 85025; 85610; 85730; 71275; 74177; G0378; J1200; J0780; J1171; Q9967; J2919

== ENCOUNTER → 2024-08-18 | Outpatient (CLI) | payer MEDICARE, OTHER ==
--- NOTE | 2024-08-19 07:52 | CT ---
EXAMINATION TYPE: CT abdomen pelvis w con CT DLP: 522 mGycm, Automated exposure control for dose reduction was used. DATE OF EXAM: 08/18/2024 3:47 PM COMPARISON: CT abdomen pelvis 04/16/2024, 02/22/2024, 12/27/2023 CLINICAL INDICATION:Female, 64 years old with history of R10.9 R16.1 C92.10; Generalized abdominal pa in. TECHNIQUE: Standard CT of the abdomen and pelvis following the administration of 100 cc of Isovue 3 00 IV contrast material and oral contrast. Coronal and sagittal reformats were performed. FINDINGS: Paucity of intra-abdominal fat limits evaluation. LOWER CHEST: Unremarkable ABDOMEN LIVER: Couple of stable left hepatic lobe cysts with largest measured 1 cm. Prominent size of the alyson er measuring up to 17.4 cm in CC dimension. GALLBLADDER AND BILE DUCTS: Gallbladder is surgically absent with mild intrahepatic and extra hepatic biliary dilatation. The common bile duct again measures up to 1 cm at the pancreatic head. PANCREAS: Similar main pancreatic ductal dilatation measuring up to 5 mm at the pancreatic neck. Stab le pancreatic head 3 mm cystic focus (series 3, image 35). SPLEEN: Markedly enlarged again measuring 26.1 cm in CC dimension. ADRENAL GLANDS: Unremarkable. KIDNEYS AND URETERS: No evidence of hydronephrosis. No left renal calculus. Nonobstructive right ivan l 4 mm calculus. The kidneys enhance symmetrically. Contrast is demonstrated within both collecting s ystems and proximal ureters on delayed phase. Right renal inferior pole 1 cm cyst. No follow-up is re commended. PELVIS BLADDER: Under distended, limiting evaluation. REPRODUCTIVE: Unremarkable. ABDOMEN & PELVIS STOMACH AND BOWEL: Stomach and duodenum are unremarkable. Enteric contrast reaches the ascending colo n. No focal bowel wall thickening or surrounding inflammatory changes. Sigmoid diverticulosis without evidence for acute diverticulitis. No evidence of bowel obstruction. PERITONEUM: No evidence of pneumoperitoneum or free fluid. VASCULATURE: Mild to moderate atherosclerotic calcifications are present throughout the abdominal aor ta and its branches. No evidence of aortic aneurysm. Few pelvic phleboliths. Patent prominent appeara nce of the portal venous system again. MUSCULOSKELETAL: No acute osseous abnormalities. Moderate multilevel degenerative disc disease. Simil ar superior endplate compression deformities of the L1 and L4 vertebral bodies. No retropulsion. Mini mal height loss. LYMPH NODES: No gross evidence for lymphadenopathy. SOFT TISSUE/ABDOMINAL WALL: Unremarkable IMPRESSION: 1. Marked splenomegaly with dilated portal venous system redemonstrated. This causes mass effect upon the surrounding structures. 2. Post cholecystectomy changes with similar intra and extrahepatic biliary duct dilatation. Addition al similar dilated pancreatic ducts. May represent post cholecystectomy physiology versus other etiol ogies. Correlation with biliary labs is recommended. Consider further evaluation with MRCP/ERCP as cl inically indicated. 3. Nonobstructive right renal calculus. 4. Sigmoid diverticulosis without evidence for acute diverticulitis. [facility], , 08/19/2024 7:50 AM
== END | disposition home or self-care (01) ==
LOC: RADCTMAIN 13:12
PROVIDERS: ATTEND Family Medicine
DX: C92.10 Chronic myeloid leukemia, BCR/ABL-positive, not having achieved remission (principal); N20.0 Calculus of kidney; R16.1 Splenomegaly, not elsewhere classified; K57.30 Diverticulosis of large intestine without perforation or abscess without bleeding; K83.8 Other specified diseases of biliary tract; K86.89 Other specified diseases of pancreas
CPT/HCPCS: 74177

== ENCOUNTER → 2024-11-12 | Outpatient (CLI) | payer MEDICARE, OTHER ==
[2024-11-12 19:12] LABS: ALT 42 U/L (8-44); AST 48 U/L (13-35); Albumin 4.4 g/dL (3.8-4.9); Albumin/Globulin Ratio 1.57 Ratio (1.60-3.17); Alkaline Phosphatase 92 U/L (41-126); Anion Gap 11.30 mmol/L (4.00-12.00); BUN/Creat Ratio 17.22 Ratio (12.00-20.00); Blood Urea Nitrogen 15.5 mg/dL (9.0-27.0); Calcium 9.0 mg/dL (8.7-10.3); Carbon Dioxide 23.7 mmol/L (21.6-31.8); Chloride 107 mmol/L (96-109); Globulin 2.8 g/dL (1.6-3.3); Glucose 124 mg/dL (70-110); Potassium 4.4 mmol/L (3.5-5.5); Sodium 142 mmol/L (135-145); Total Protein 7.2 g/dL (6.2-8.2)
[2024-11-12 19:35] LABS: Anisocytosis (M) 2+ (None Seen); HCT 30.8 % (37.2-46.3); HGB 9.2 g/dL (12.0-15.0); Hypochromasia (M) 2+ (None Seen); MCH 29.3 pg (27.0-32.0); MCHC 29.9 g/dL (32.0-37.0); MCV 98.1 FL (80.0-97.0); Macrocytosis (M) 2+ (None Seen); Microcytosis (M) 2+ (None Seen); NRBC Per 100 WBC 1.83 X 10*3/uL (0.00-0.01); Platelet Count 1116 X 10*3/uL (140-440); RBC 3.14 X 10*6/uL (4.10-5.20); RDW 31.6 % (11.5-14.5); Schistocytes 1+ (None Seen); WBC 53.89 X 10*3/uL (4.50-10.00)
== END | disposition home or self-care (01) ==
LOC: LABWHC1 14:46
PROVIDERS: ATTEND Internal Medicine Gastroenterology
DX: G89.29 Other chronic pain (principal)
CPT/HCPCS: 36415; 80053; 82784; 85027; 85652; 86140